=== PATIENT | male | born 1960 | race African-American/Black ===

== ENCOUNTER 2018-01-22 10:02 | Day surgery (SDC) | payer MEDICARE ==
[~2018-01-22] VITALS: Ht 167.6 cm; Wt 108.4 kg
[~2018-01-22 10:02] MED LIST: ALLP300T PO; BUDE6HFA IH; CARV12.53 PO; CLON-378 PO; DGX.125T GT; DIPH25TA82 PO; FAMO20TA13 PO; FURO40TA4 PO; GABA300T23 PO; HYDR-3004 PO; HYDR1TAB86 PO; IPRA3AMP11 INH; ISM30TCR PO; LISI10TA PO; LORA10TA7 PO; METH500T35 PO; NIAC1000 PO; OMEG1CAP PO; RIVA20TA2 PO; SMV20T PO; TMSL.4C PO; ZLP10T PO
--- OUTSIDE RECORDS SUMMARY | 2018-01-22 10:13 | XMS REPORT ---
Author Author Melecio Wilkinson [facility] Address [address] [place], [place] [id number] Care Team Providers Care Ct Tech Name Role Phone Melecio Wilkinson PCP Melecio Wilkinson PreferredProvider Allergies and Adverse Reactions Name Reaction Notes NO KNOWN DRUG ALLERGIES Plan of Treatment Planned Activity Comments Planned Date Planned Time Plan/Goal EKG (12-lead electrocardiogram) 12/09/2012 12:00 AM Medications Active Name Start Date Estimated Completion Date SIG Comments hydralazine 50 mg oral tablet take 1 tablet (50 mg) by oral route 3 times per day with food Dr. Yesenia Yang Oral one tablet by oral route once daily Symbicort 160-4.5 mcg/actuation inhalation HFA aerosol inhaler 09/23/2013 INHALE 2 PUFFS BY MOUTH 2 TIMES PER DAY MORNING AND EVENING lisinopril 10 mg oral tablet 10/13/2013 TAKE 1 TABLET BY MOUTH EVERY DAY FOR BLOOD PRESSURE diphenhydramine HCl 50 mg oral capsule 11/12/2013 TAKE 1 CAPSULE BY MOUTH EVERY SIX HOURS NEEDED digoxin 125 mcg oral tablet 11/20/2013 TAKE 1 TABLET BY MOUTH EVERY DAY isosorbide mononitrate 30 mg oral tablet extended release 24 hr 11/20/2013 TAKE 1 TABLET BY MOUTH EVERY DAY *GEN IMDUR* simvastatin 20 mg oral tablet 12/17/2013 TAKE 1 TABLET BY MOUTH DAILY AT BEDTIME famotidine 20 mg oral tablet 12/18/2013 TAKE 1 TABLET BY MOUTH TWO TIMES A DAY allopurinol 300 mg oral tablet 02/11/2014 TAKE 1 TABLET BY MOUTH ONCE DAILY carvedilol 12.5 mg oral tablet 02/11/2014 TAKE 1 TABLET BY MOUTH TWO TIMES A DAY *GEN COREG* digoxin 125 mcg oral tablet 02/11/2014 TAKE 1 TABLET BY MOUTH EVERY DAY isosorbide mononitrate 30 mg oral tablet extended release 24 hr 02/11/2014 TAKE 1 TABLET BY MOUTH EVERY DAY *GEN IMDUR* isosorbide mononitrate 30 mg oral tablet extended release 24 hr 05/10/2014 TAKE 1 TABLET BY MOUTH EVERY DAY *GEN IMDUR* digoxin 125 mcg oral tablet 05/10/2014 TAKE 1 TABLET BY MOUTH EVERY DAY clonidine HCl 0.2 mg oral tablet 06/07/2014 TAKE ONE TABLET BY MOUTH THREE TIMES DAILY NEEDED allopurinol 300 mg oral tablet 08/02/2014 TAKE 1 TABLET BY MOUTH ONCE DAILY carvedilol 12.5 mg oral tablet 08/02/2014 TAKE 1 TABLET BY MOUTH TWO TIMES A DAY *GEN COREG* digoxin 125 mcg oral tablet 08/30/2014 TAKE 1 TABLET BY MOUTH EVERY DAY isosorbide mononitrate 30 mg oral tablet extended release 24 hr 08/30/2014 TAKE 1 TABLET BY MOUTH EVERY DAY *GEN IMDUR* diphenhydramine HCl 50 mg oral capsule 09/28/2014 TAKE 1 CAPSULE BY MOUTH EVERY SIX HOURS NEEDED Symbicort 160-4.5 mcg/actuation inhalation HFA aerosol inhaler 11/23/2014 INHALE 2 PUFFS BY MOUTH 2 TIMES PER DAY MORNING AND EVENING omega-3 acid ethyl esters 1 gram oral capsule 11/23/2014 TAKE 2 CAPSULES (2 GRAM) BY ORAL ROUTE 2 TIMES PER DAY FOR 30 DAYS digoxin 125 mcg oral tablet 02/21/2015 TAKE 1 TABLET BY MOUTH EVERY DAY cimetidine 200 mg oral tablet 03/02/2015 take 1 tablet (200 mg) by oral route once daily 30 minutes before meals cimetidine 200 mg oral tablet 03/29/2015 TAKE 1 TABLET BY MOUTH EVERY DAY 30 MINUTES BEFORE A MEAL cimetidine 200 mg oral tablet 04/28/2015 TAKE 1 TABLET BY MOUTH EVERY DAY 30 MINUTES BEFORE A MEAL midodrine 5 mg oral tablet 06/27/2015 take 1 tablet (5 mg) by oral route 2 times per day omeprazole 40 mg oral capsule,delayed release(DR/EC) 06/27/2015 take 1 capsule by oral route 2 times a day midodrine 5 mg oral tablet 07/20/2015 TAKE 1 TABLET BY MOUTH TWICE DAILY methocarbamol 750 mg oral tablet 08/17/2015 take 1 tablet by oral route every 6 hours as needed for 30 days digoxin 125 mcg oral tablet 08/17/2015 TAKE 1 TABLET BY MOUTH EVERY DAY lisinopril 20 mg oral tablet 08/17/2015 TAKE 1 TABLET BY MOUTH DAILY midodrine 5 mg oral tablet 01/06/2016 TAKE 1 TABLET BY MOUTH TWICE DAILY methocarbamol 750 mg oral tablet 01/06/2016 TAKE 1 TABLET BY ORAL ROUTE EVERY 6 HOURS NEEDED FOR 30 DAYS Symbicort 160-4.5 mcg/actuation inhalation HFA aerosol inhaler 01/30/2016 INHALE 2 PUFFS BY MOUTH 2 TIMES PER DAY MORNING AND EVENING omeprazole 40 mg oral capsule,delayed release(DR/EC) 02/06/2016 TAKE 1 CAPSULE BY MOUTH TWICE DAILY digoxin 125 mcg oral tablet 02/06/2016 TAKE 1 TABLET BY MOUTH EVERY DAY carvedilol 25 mg oral tablet 03/06/2016 take 1 tablet (25 mg) by oral route 2 times per day with food for 90 days sucralfate 1 gram oral tablet 05/02/2016 TAKE 1 TABLET BY MOUTH 30 MINUITES PRIOR TO MEALS AND AT BEDTIME fluticasone 50 mcg/actuation nasal spray,suspension 05/03/2016 inhale 1 spray (50 mcg) in each nostril by intranasal route 2 times per day clonidine HCl 0.2 mg oral tablet 07/12/2016 TAKE ONE TABLET BY MOUTH THREE TIMES DAILY NEEDED midodrine 5 mg oral tablet 08/01/2016 TAKE 1 TABLET BY MOUTH TWICE DAILY sucralfate 1 gram oral tablet 08/01/2016 TAKE 1 TABLET BY MOUTH 30 MINUITES PRIOR TO MEALS AND AT BEDTIME digoxin 125 mcg oral tablet 08/01/2016 TAKE 1 TABLET BY MOUTH EVERY DAY loratadine 10 mg oral tablet 08/28/2016 TAKE 1 TABLET BY MOUTH EVERY DAY - GEN CLARITIN- albuterol sulfate 2.5 mg /3 mL (0.083 %) inhalation solution for nebulization 09/25/2016 USE 1 VIAL IN NEBULIZER FOUR TIMES DAILY Singulair 10 mg oral tablet 10/26/2016 take 1 tablet (10 mg) by oral route once daily in the evening atorvastatin 40 mg oral tablet 01/24/2017 01/19/2018 take 1 tablet (40 mg) by oral route once daily for 90 days carvedilol 25 mg oral tablet 03/21/2017 TAKE ONE TABLET BY MOUTH TWICE DAILY WITH FOOD Lyrica 50 mg oral capsule 06/06/2017 take 1 capsule (50 mg) by oral route 2 times per day clonidine HCl 0.2 mg oral tablet 07/18/2017 02/13/2018 TAKE ONE TABLET BY MOUTH THREE TIMES DAILY NEEDED methocarbamol 750 mg oral tablet 07/18/2017 01/14/2018 TAKE 1 TABLET BY MOUTH EVERY SIX HOURS NEEDED sucralfate 1 gram oral tablet 07/18/2017 01/14/2018 TAKE 1 TABLET BY MOUTH 30 MINUITES PRIOR TO MEALS AND AT BEDTIME digoxin 125 mcg oral tablet 07/18/2017 01/14/2018 TAKE 1 TABLET BY MOUTH EVERY DAY ondansetron HCl 8 mg oral tablet 07/22/2017 take 1 tablet (8 mg) by oral route every 8 hours midodrine 5 mg oral tablet 08/16/2017 02/12/2018 TAKE 1 TABLET BY MOUTH TWICE DAILY tamsulosin 0.4 mg oral capsule,extended release 24hr 08/16/2017 08/11/2018 TAKE 1 CAPSULE BY MOUTH EVERY DAY amlodipine 5 mg oral tablet 08/16/2017 02/12/2018 TAKE 1 TABLET BY MOUTH DAILY prednisone 20 mg oral tablet 08/27/2017 take 2 tablets (40 mg) by oral route once daily for 5 days zolpidem 10 mg oral tablet 09/17/2017 11/16/2017 take 1 tablet (10 mg) by oral route once daily at bedtime for 30 days omeprazole 40 mg oral capsule,delayed release(DR/EC) 09/17/2017 03/16/2018 TAKE 1 CAPSULE BY MOUTH TWICE DAILY Levaquin 500 mg oral tablet 10/10/2017 take 1 tablet (500 mg) by oral route once daily for 7 days albuterol sulfate 2.5 mg /3 mL (0.083 %) inhalation solution for nebulization 10/17/2017 inhale 3 milliliters (2.5 mg) by nebulization route 4 times per day Dx: J44.9 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 Symbicort 160-4.5 mcg/actuation inhalation HFA aerosol inhaler 10/17/201705/15 INHALE 2 PUFFS BY MOUTH 2 TIMES PER DAY MORNING AND EVENING azithromycin 500 mg oral tablet 10/22/2017 take 1 tablet (500 mg) by oral route once daily for 5 days cefpodoxime 200 mg oral tablet 10/22/2017 take 1 tablet (200 mg) by oral route every 12 hours with food for 7 days guaifenesin 600 mg oral tablet extended release 12hr 10/22/2017 take 1 tablet (600 mg) by oral route every 12 hours oxycodone 20 mg oral tablet 10/24/2017 11/23/2017 take 1 tablet by oral route q6h prn for 30 days oxycodone 30 mg oral tablet,oral only,ext.rel.12 hr 10/24/2017 11/23/2017 take 1 tablet (30 mg) by oral route every 8 hours for 30 days Name Start Date Expiration Date SIG Comments hydroxyzine HCl 50 mg oral tablet 09/20/2009 01/18/2010 take 1 tablet (50 mg ) by oral route 3 times per day doxycycline hyclate 100 mg oral tablet 12/06/2009 12/13/2009 take 1 tablet ( 100 mg) by oral route every 12 hours for 7 days potassium chloride 10 mEq oral tablet extended release 05/15/2010 11/11/2010 take 1 tablet (10 meq) by oral route 2 times per day with food Bactrim DS 800-160 mg oral tablet 06/01/2010 06/08/2010 take 1 tablet by oral route every 12 hours for 7 days Levaquin 500 mg oral tablet 07/25/2010 08/01/2010 take 1 tablet (500 mg) by oral route once daily for 7 days Symbicort 160-4.5 mcg/actuation inhalation HFA aerosol inhaler 06/11/201112/07 inhale 2 puffs by inhalation route 2 times per day morning and evening Fioricet 50-325-40 mg oral tablet 08/22/2011 take 1 tablet by oral route every 4 hours as needed not to exceed 6 tablets per 24hrs diphenhydramine HCl 50 mg oral tablet 11/08/2011 02/06/2012 Take 1 tablet (50 mg) by oral route every six hours as needed for 30 days Levaquin 750 mg oral tablet 01/01/2012 01/08/2012 take 1 tablet (750 mg) by oral route once daily for 7 days Voltaren 1 % topical gel 08/04/2012 10/03/2012 apply 4 gram to affected area( s) by topical route 3 times per day Augmentin 500-125 mg oral tablet 08/19/2012 08/26/2012 take 1 tablet by oral route every 12 hours for 7 days prednisone 10 mg oral tablet 09/01/2012 09/06/2012 Take 1 by mouth once a day Levaquin 500 mg oral tablet 10/09/2012 10/16/2012 take 1 tablet (500 mg) by oral route once daily for 7 days amoxicillin-pot clavulanate 500-125 mg oral tablet 11/05/2012 11/12/2012 TAKE 1 TABLET BY ORAL ROUTE EVERY 12 HOURS FOR 7 DAYS loratadine 10 mg oral tablet 11/06/2012 12/06/2012 TAKE 1 TABLET BY MOUTH EVERY DAY -GEN CLARITIN- Lovaza 1 gram oral capsule 11/17/2012 12/17/2012 TAKE 2 CAPSULES (2 GRAM) BY ORAL ROUTE 2 TIMES PER DAY FOR 30 DAYS Vibramycin 100 mg oral capsule 12/09/2012 12/19/2012 take 1 capsule (100 mg) by oral route every 12 hours for 10 days prednisone 20 mg oral tablet 12/09/2012 12/18/2012 take 3 tabs PO x 3 days, then 2 tabs PO x 3 days, and then 1 tab PO x 3 days simvastatin 20 mg oral tablet 06/25/2013 07/25/2013 TAKE 1 TABLET BY MOUTH DAILY AT BEDTIME famotidine 20 mg oral tablet 06/25/2013 07/25/2013 TAKE 1 TABLET BY MOUTH TWO TIMES A DAY Bactrim DS 800-160 mg oral tablet 07/21/2013 07/28/2013 take 1 tablet by oral route 2 times per day for 7 days guaifenesin 600 mg oral tablet extended release 07/21/2013 07/31/2013 take 1 tablet (600 mg) by oral route every 12 hours for 10 days diphenhydramine HCl 50 mg oral capsule 08/14/2013 11/12/2013 TAKE 1 CAPSULE BY MOUTH EVERY SIX HOURS NEEDED digoxin 125 mcg oral tablet 08/25/2013 11/23/2013 TAKE 1 TABLET BY MOUTH EVERY DAY Augmentin 500-125 mg oral tablet 10/05/2013 10/12/2013 take 1 tablet by oral route every 12 hours for 7 days dicyclomine 10 mg oral capsule 10/29/2013 11/03/2013 take 1 capsule (10 mg) by oral route 3 times per day for 5 days Cipro 500 mg oral tablet 10/29/2013 11/03/2013 take 1 tablet (500 mg) by oral route every 12 hours for 5 days Lovaza 1 gram oral capsule 11/12/2013 TAKE 2 CAPSULES (2 GRAM) BY ORAL ROUTE 2 TIMES PER DAY FOR 30 DAYS Levaquin 750 mg oral tablet 12/08/2013 12/15/2013 take 1 tablet (750 mg) by oral route once daily for 7 days Levaquin 500 mg oral tablet 01/05/2014 01/12/2014 take 1 tablet (500 mg) by oral route once daily for 7 days montelukast 10 mg oral tablet 03/02/2014 03/09/2014 take 1 tablet (10 mg) by oral route once daily in the evening for 7 days metformin 500 mg oral tablet 05/14/2014 11/10/2014 take 1 tablet (500 mg) by oral route 2 times per day with morning and evening meals for 30 days bupropion HCl 150 mg oral tablet extended release 24 hr 05/20/2014 take 1 tablet (150 mg) by oral route once daily simvastatin 20 mg oral tablet 06/07/2014 TAKE 1 TABLET BY MOUTH DAILY AT BEDTIME baclofen 10 mg oral tablet 07/19/2014 11/16/2014 take 0.5 tablet by oral route 3 times a day for 30 days Voltaren 1 % topical gel 09/14/2014 apply 2 gram to the affected area(s) by topical route 4 times per day amantadine HCl 100 mg oral tablet 10/05/2014 10/10/2014 take 1 tablet (100 mg ) by oral route 2 times per day for 5 days amantadine HCl 100 mg oral tablet 11/11/2014 11/16/2014 take 1 tablet (100 mg ) by oral route 2 times per day for 5 days amoxicillin 500 mg oral capsule 11/11/2014 11/18/2014 take 1 capsule (500 mg) by oral route every 12 hours for 7 days omeprazole 40 mg oral capsule,delayed release(DR/EC) 01/13/2015 07/12/2015 take 1 capsule by oral route 2 times a day for 30 days Cipro 500 mg oral tablet 01/13/2015 01/20/2015 take 1 tablet (500 mg) by oral route every 12 hours for 7 days methocarbamol 500 mg oral tablet 01/24/2015 06/23/2015 take 1 tablet (500 mg) by oral route 4 times a day for 30 days gabapentin 300 mg oral capsule 02/17/2015 08/16/2015 take 2 capsules (600 mg ) by oral route 3 times per day for 30 days furosemide 20 mg oral tablet 02/24/2015 TAKE 2 TABELTS BY MOUTH TWICE DAILY FOR 3 DAYS THEN TAKE 1 TABLET DAILY valacyclovir 1 gram oral tablet 02/28/2015 03/05/2015 take 1 tablet (1,000 mg) by oral route 2 times per day for 5 days Tradjenta 5 mg oral tablet 03/28/2015 04/25/2015 take 1 tablet (5 mg) by oral route once daily for 28 days Bactrim DS 800-160 mg oral tablet 03/28/2015 04/04/2015 take 1 tablet by oral route every 12 hours for 7 days methocarbamol 750 mg oral tablet 03/29/2015 08/26/2015 take 1 tablet by oral route every 6 hours as needed for 30 days Bactrim DS 800-160 mg oral tablet 04/08/2015 04/13/2015 take 1 tablet by oral route every 12 hours for 5 days Cipro 250 mg oral tablet 04/22/2015 04/29/2015 take 1 tablet (250 mg) by oral route every 12 hours for 7 days Coreg 25 mg oral tablet take 1 tablet (25 mg) by oral route 2 times per day with food sulfamethoxazole-trimethoprim 800-160 mg oral tablet 06/02/2015 06/09/2015 take 1 tablet by oral route every 12 hours for 7 days carvedilol 25 mg oral tablet 06/14/2015 06/08/2016 take 1 tablet (25 mg) by oral route 2 times per day with food for 90 days Levaquin 500 mg oral tablet 06/27/2015 take 1 tablet (500 mg) by oral route once daily sulfamethoxazole-trimethoprim 800-160 mg oral tablet 07/29/2015 08/05/2015 take 1 tablet by oral route every 12 hours for 7 days doxazosin 2 mg oral tablet 04/11/2016 10/08/2016 take 1 tablet (2 mg) by oral route once daily for 30 days sulfamethoxazole-trimethoprim 800-160 mg oral tablet 06/07/2016 06/14/2016 take 1 tablet by oral route every 12 hours for 7 days Albuterol Sulfate 2.5 mg /3 mL (0.083 %) Inhalation Solution for Nebulization 08/28/2016 08/28/2017 inhale 3 milliliters (2.5 mg) by nebulization route 4 times per day furosemide 40 mg oral tablet 01/24/2017 02/23/2017 take 1 tablet (40 mg) by oral route once daily for 30 days Pyridium 200 mg oral tablet 04/19/2017 04/21/2017 take 1 tablet (200 mg) by oral route 3 times per day after meals for 2 days Discontinued Name Start Date Discontinued Date SIG Comments Neurontin 300 mg oral capsule 11/03/2009 1 tab q hs already on list NitroQuick 0.4 mg sublingual tablet, sublingual 11/03/2009 place 1 tablet ( 0.4 mg) by sublingual route at the 1st sign of an attack; may repeat every 5 min until relief; if pain persists after of 3 tablets in 15 min, prompt medical attention is recommended no longer has this med zolpidem 10 mg oral tablet 02/08/2010 take 1 tablet (10 mg) by oral route once daily at bedtime Tricor 145 mg oral tablet 11/03/2009 take 1 tablet (145 mg) by oral route once daily no longer taking hydralazine 100 mg oral tablet 06/14/2010 take 1 tablet (100 mg) by oral route 3 times per day with food isosorbide mononitrate 30 mg oral tablet extended release 24 hr 09/20/200907/2010 take 1 tablet (30 mg) by oral route once daily in the morning for 30 days dose change Pepcid 20 mg oral tablet 10/20/2009 11/03/2009 take 1 tablet (20 mg) by oral route 2 times per day for 30 days already on list lisinopril 40 mg oral tablet 06/14/2010 take 1 tablet (40 mg) by oral route once daily isosorbide mononitrate 60 mg oral tablet extended release 24 hr 06/14/2010 take 1 tablet by oral route daily Proventil HFA 90 mcg/actuation inhalation HFA aerosol inhaler 11/03/20092013 inhale 1 puff by inhalation route every 6 hours/QID prednisone 10 mg oral tablet 12/06/2009 02/08/2010 Take 1 MG/KG (10 mg) by oral route daily warfarin 6 mg oral tablet 12/14/2009 05/06/2013 take 1 tablet (6 mg) by oral route once daily for 30 days changed to Jimmielreto by Dr. Yesenia Cuevas 5 % topical adhesive patch,medicated 02/08/2010 08/04/2012 apply 2 patches by transdermal route once daily (May wear up to 12hours.) for 30 days Patch doesn't stay on Singulair 10 mg oral tablet 03/15/2010 05/14/2014 take 1 tablet (10 mg) by oral route once daily in the evening carvedilol 25 mg oral tablet 04/17/2010 06/14/2010 1 1/2 tabs BID niacin 500 mg oral tablet 10/10/2016 take 1 tablet (500 mg) by oral route once daily Augmentin 875-125 mg oral tablet 11/07/2010 03/05/2011 take 1 tablet by oral route every 12 hours docusate sodium 100 mg oral capsule 01/08/2011 05/14/2014 take 1 capsule by oral route daily hyoscyamine sulfate 0.125 mg oral tablet 07/26/2011 12/09/2012 take 1 tablet by oral route 2 times a day hydroxyzine HCl 50 mg oral tablet 09/10/2011 11/08/2011 TAKE 1 TABLET BY MOUTH THREE TIMES A DAY NEEDED Formulary Compliance promethazine-codeine 6.25-10 mg/5 mL oral syrup 10/01/2011 05/14/2012 take 5 milliliters by oral route every 4-6 hours as needed, not to exceed 30 mL in 24 hours promethazine 25 mg oral tablet 10/11/2011 10/31/2011 TAKE 1 TABLET BY MOUTH EVERY 6 HOURS NEEDED NAUSEA prochlorperazine maleate 5 mg oral tablet 10/31/2011 05/14/2012 take 1 tablet by oral route every 6 to 8 hours as needed prednisone 10 mg oral tablet 01/01/2012 05/14/2012 take 2 tablets (20 mg) by oral route once daily for 3 days then 1 tablet (10 mg) once daily for 2 days Ambien 10 mg oral tablet 02/25/2012 05/19/2012 take 1 tablet (10 mg) by oral route once daily at bedtime for 30 days generic on list guaifenesin 600 mg oral tablet extended release 05/06/2012 07/21/2013 take 1 tablet (600 mg) by oral route every 12 hours as needed amoxicillin-pot clavulanate 500-125 mg oral tablet 05/06/2012 05/14/2012 take 1 tablet by oral route every 12 hours Miralax 17 gram oral powder in packet 07/16/2012 05/14/2014 take 1 packet ( 17 gram) mixed with 8 oz. water, juice, soda, coffee or tea by oral route once daily lisinopril 10 mg oral tablet 04/15/2013 10/10/2016 TAKE 1 TABLET BY MOUTH EVERY DAY FOR BLOOD PRESSURE taking 20mg daily baclofen 10 mg oral tablet 02/26/2013 10/28/2013 take 1 tablet (10 mg) by oral route 3 times a day furosemide 40 mg oral tablet 08/24/2013 10/10/2016 TAKE 1 TABLET BY MOUTH EVERY DAY -FOR FLUID- *GEN LASIX* not taking allopurinol 300 mg oral tablet 08/24/2013 10/10/2016 TAKE 1 TABLET BY MOUTH ONCE DAILY dose change carvedilol 12.5 mg oral tablet 08/24/2013 08/08/2016 TAKE 1 TABLET BY MOUTH TWO TIMES A DAY *GEN COREG* gen. on list isosorbide mononitrate 30 mg oral tablet extended release 24 hr 08/24/2013 TAKE 1 TABLET BY MOUTH EVERY DAY *GEN IMDUR* not taking hydrocodone-acetaminophen 10-500 mg oral tablet 08/25/2013 11/23/2013 take 1 tablet (10-500 mg) by oral route every 4 hours for 30 days Levaquin 750 mg oral tablet 09/22/2013 09/29/2013 take 1 tablet (750 mg) by oral route once daily prednisone 20 mg oral tablet 09/22/2013 10/29/2013 take 2 tabs(40mg) daily times 2 days, then 20mg daily for 4 days Sudafed 30 mg oral tablet 05/14/2014 promethazine 25 mg oral tablet 10/29/2013 05/14/2014 take 1 tablet (25 mg) by oral route every 6 hours as needed clonidine HCl 0.2 mg oral tablet 11/12/2013 02/17/2015 TAKE ONE TABLET BY MOUTH THREE TIMES DAILY NEEDED clonidine HCl 0.2 mg oral tablet 11/12/2013 02/17/2015 TAKE ONE TABLET BY MOUTH THREE TIMES DAILY NEEDED already on list furosemide 40 mg oral tablet 11/20/2013 05/14/2014 TAKE 1 TABLET BY MOUTH EVERY DAY -FOR FLUID- *GEN LASIX* methocarbamol 500 mg oral tablet 02/04/2014 03/24/2014 take 1 tablet (500 mg) by oral route 4 times a day for 30 days Augmentin 500-125 mg oral tablet 03/02/2014 05/14/2014 take 1 tablet by oral route every 12 hours Synvisc-One 48 mg/6 mL intra-articular syringe 04/28/2014 05/14/2014 inject 6 milliliters by intra-articular route into the right knee Levaquin 500 mg oral tablet 05/20/2014 07/14/2014 take 1 tablet (500 mg) by oral route once daily famotidine 20 mg oral tablet 06/07/2014 09/07/2014 TAKE 1 TABLET BY MOUTH TWO TIMES A DAY cyclobenzaprine 10 mg oral tablet 07/14/2014 07/19/2014 take 1 tablet (10 mg ) by oral route 3 times per day as needed headaches gabapentin 100 mg oral capsule 07/19/2014 11/11/2014 take 1 capsule by oral route 3 times a day for 30 days with the 300 mg capsule dose change lisinopril 10 mg oral tablet 09/28/2014 04/26/2015 TAKE 1 TABLET BY MOUTH EVERY DAY FOR BLOOD PRESSURE ON HOLD - DR ARAIZA penicillin V potassium 500 mg oral tablet 11/11/2014 11/11/2014 take 1 tablet (500 mg) by oral route 2 times per day for 7 days Not available at the pharmacy metformin 500 mg oral tablet 11/15/2014 03/11/2015 TAKE 1 TABLET BY MOUTH TWICE DAILY WITH MORNING AND EVENING MEALS metformin 500 mg oral tablet 11/15/2014 03/11/2015 TAKE 1 TABLET BY MOUTH TWICE DAILY WITH MORNING AND EVENING MEALS elevated creatinine hydralazine 50 mg oral tablet 12/23/2014 04/26/2015 TAKE 1 TABLET BY MOUTH THREE TIMES A DAY hydralazine 50 mg oral tablet 12/23/2014 04/26/2015 TAKE 1 TABLET BY MOUTH THREE TIMES A DAY RX ON HOLD - DR ARAIZA hydrocodone-acetaminophen 10-325 mg oral tablet 01/04/2015 01/12/2015 take 2 tablets by oral route 2 times a day as needed for 30 days diphenhydramine HCl 50 mg oral capsule 01/21/2015 02/28/2015 TAKE 1 CAPSULE BY MOUTH EVERY SIX HOURS NEEDED carvedilol 12.5 mg oral tablet 02/21/2015 04/26/2015 TAKE 1 TABLET BY MOUTH TWO TIMES A DAY *GEN COREG* carvedilol 12.5 mg oral tablet 02/21/2015 04/26/2015 TAKE 1 TABLET BY MOUTH TWO TIMES A DAY *GEN COREG* DR ARAIZA INCREASED TO 25 mg po bid allopurinol 300 mg oral tablet 02/21/2015 10/10/2016 TAKE 1 TABLET BY MOUTH ONCE DAILY allopurinol 300 mg oral tablet 02/21/2015 10/10/2016 TAKE 1 TABLET BY MOUTH ONCE DAILY dose change isosorbide mononitrate 30 mg oral tablet extended release 24 hr 02/21/20152014 TAKE 1 TABLET BY MOUTH EVERY DAY *GEN IMDUR* isosorbide mononitrate 30 mg oral tablet extended release 24 hr 02/21/20152014 TAKE 1 TABLET BY MOUTH EVERY DAY *GEN IMDUR* ON TAMI ARAIZA triamcinolone acetonide 0.1 % topical cream 02/28/2015 03/28/2015 apply a thin layer to the affected area(s) by topical route 3 times per day hydroxyzine HCl 50 mg oral tablet 02/28/2015 03/28/2015 take 1 tablet (50 mg) by oral route 4 times per day as needed lisinopril 20 mg oral tablet 03/23/2015 04/26/2015 TAKE 1 TABLET BY MOUTH DAILY lisinopril 20 mg oral tablet 03/23/2015 04/26/2015 TAKE 1 TABLET BY MOUTH DAILY ON HOLD - DR ARAIZA betamethasone dipropionate 0.05 % topical lotion 03/28/2015 10/10/2016 apply a few drops to the affected area(s) by topical route 2 times per day and massage lightly until it disappears gabapentin 300 mg oral capsule 04/26/2015 05/16/2015 take 1 capsule by oral route 2 times a day for 30 days changed to Lyrica. Increased pain follow dose adjustments of gabapentin for renal function allopurinol 100 mg oral tablet 01/19/2016 take 1.5 tablets by oral route daily ondansetron 8 mg oral tablet,disintegrating 10/10/2016 take 1 tablet (8 mg ) and place on top of the tongue where it will dissolve, then swallow by oral route every 8 hours "i don't have this" sodium bicarbonate 325 mg oral tablet 10/10/2016 take 0.5 tablet by oral route 2 times a day Vitamin D3 1,000 unit oral capsule 10/10/2016 take 1 capsule by oral route Carafate 1 gram oral tablet 10/10/2016 take 1 tablet (1 gram) by oral route 4 times per day on an empty stomach 1 hour before meals and at bedtime generic on list guaifenesin 600 mg oral tablet extended release hr 07/28/2015 08/23/2015 Take 1 tablet every 12 hours for cough amoxicillin-pot clavulanate 500-125 mg oral tablet 07/28/2015 07/29/2015 take 1 tablet by oral route every 12 hours for 7 days prednisone 20 mg oral tablet 08/08/2015 08/23/2015 take 2 tablets (40 mg) by oral route daily for 4 days 1 tablet (20 mg) daily for 4 days then 0.5 tablet ( 10 mg) daily for 4 days loratadine 10 mg oral tablet 09/14/2015 04/11/2016 TAKE 1 TABLET BY MOUTH EVERY DAY -GEN CLARITIN- tamsulosin 0.4 mg oral capsule,extended release 24hr 09/14/2015 04/11/2016 TAKE 1 CAPSULE BY MOUTH EVERY DAY cimetidine 200 mg oral tablet 10/13/2015 04/11/2016 TAKE 1 TABLET BY MOUTH EVERY DAY 30 MINUTES BEFORE A MEAL cimetidine 200 mg oral tablet 10/13/2015 04/11/2016 TAKE 1 TABLET BY MOUTH EVERY DAY 30 MINUTES BEFORE A MEAL Taking Omeprazole omega-3 acid ethyl esters 1 gram oral capsule 11/10/2015 02/17/2016 TAKE 2 CAPSULES (2 GRAM) BY ORAL ROUTE 2 TIMES PER DAY FOR 30 DAYS clonidine HCl 0.2 mg oral tablet 11/21/2015 04/12/2016 TAKE ONE TABLET BY MOUTH THREE TIMES DAILY NEEDED Switching to Doxazosin Lyrica 50 mg oral capsule 11/21/2015 02/17/2016 take 1 capsule by oral route 2 times a day for 30 days lisinopril 20 mg oral tablet 12/08/2015 02/03/2017 TAKE 1 TABLET BY MOUTH DAILY lisinopril 20 mg oral tablet 12/08/2015 02/03/2017 TAKE 1 TABLET BY MOUTH DAILY Acute renal injury gentamicin 0.3 % ophthalmic drops 12/13/2015 01/19/2016 instill 2 drops into affected eye(s) by ophthalmic route 4 times a day oxycodone 30 mg oral tablet,oral only,ext.rel.12 hr 01/19/2016 01/20/2016 Take 1 tablet every 12 hours Embeda 50-2 mg oral capsule,oral only,ext.rel akua 01/20/2016 01/20/2016 take 1 capsule by oral route every 12 hours for 30 days $500 co-pay MS Contin 60 mg oral tablet extended release 01/20/2016 02/16/2016 take 1 tablet by oral route every 12 hours for 30 days Lacey stoned Amitiza 24 mcg oral capsule 05/03/2016 10/10/2016 take 1 capsule (24 mcg) by oral route 2 times per day with food and water furosemide 20 mg oral tablet 07/10/2016 10/10/2016 take 1 tablet (20 mg) by oral route once daily for 3 days furosemide 20 mg oral tablet 07/10/2016 10/10/2016 take 1 tablet (20 mg) by oral route once daily for 3 days not taking fluticasone 50 mcg/actuation nasal spray,suspension 08/01/2016 10/10/2016 inhale 1 spray (50 mcg) in each nostril by intranasal route 2 times per day guaifenesin 600 mg oral tablet extended release 12hr 09/26/2016 10/10/2016 take 1 tablet (600 mg) by oral route every 12 hours Augmentin 500-125 mg oral tablet 09/26/2016 10/10/2016 take 1 tablet by oral route every 12 hours prednisone 20 mg oral tablet 09/26/2016 10/10/2016 take 2 tablets (40 mg) by mouth once daily for 3 days 1 tablet (20 mg) once daily for 3 days then 0.5 tablet (10 mg) daily for 2 days Lyrica 75 mg oral capsule 12/21/2016 02/03/2017 take 1 capsule (75 mg) by oral route 2 times per day for 30 days Acute renal failure prednisone 10 mg oral tablet 12/21/2016 01/08/2017 take 1 tablet (10 mg) by oral route once daily metolazone 10 mg oral tablet 01/14/2017 01/15/2017 take 1 tablet (10 mg) by oral route once daily bumetanide 2 mg oral tablet 08/27/2017 take 1 tablet (2 mg) by oral route every other day for 10 days allopurinol 100 mg oral tablet 01/24/2017 02/03/2017 take 1 and 1/2 tablet ( 150 mg) by oral route once daily allopurinol 100 mg oral tablet 01/24/2017 02/03/2017 take 1 and 1/2 tablet ( 150 mg) by oral route once daily Acute renal failure Klor-Con 10 10 mEq oral tablet extended release 01/24/2017 08/27/2017 take 1 tablet (10 meq) by oral route once daily with food for 30 days Klor-Con 10 10 mEq oral tablet extended release 01/24/2017 08/27/2017 take 1 tablet (10 meq) by oral route once daily with food for 30 days pt reports not taking magnesium oxide 400 mg oral tablet 08/27/2017 take 1 tablet by oral route 3 times a day pt reports not taking Spiriva Respimat 2.5 mcg/actuation inhalation mist 04/03/2017 08/27/2017 inhale 2 puffs (5 mcg) by inhalation route once daily at the same time each day Levaquin 500 mg oral tablet 05/21/2017 06/06/2017 take 1 tablet (500 mg) by oral route once daily for 10 days guaifenesin 600 mg oral tablet extended release 12hr 05/21/2017 06/06/2017 take 1 tablet (600 mg) by oral route every 12 hours as needed Levaquin 500 mg oral tablet 08/06/2017 08/27/2017 take 1 tablet (500 mg) by oral route once daily for 5 days Problem List Description Status Onset SI joint pain Active 08/23/2009 Chronic Obstructive Pulmonary Disease Active Congestive Heart Failure Active Hypertension Active Hypercholesterolemia Active Lumbago Active Gout Active Diabetes Mellitus, Type II Active Benign essential hypertension Active 05/06/2014 myofascial pain Active 11/11/2014 Cervical spinal stenosis Active 11/11/2014 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 12/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 Lung cancer Active 12/02/14 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, right Active 03/17/2017 Vital Signs Date Time BP-Sys(mm[Hg] BP-Jaylin(mm[Hg]) HR(bpm) RR(rpm) Temp WT HT HC BMI BSA BMI Percentile O2 Sat(%) 10/22/2017 9:26:00 AM 142 mmHg 84 mmHg 85 bpm 24 rpm 97.7 F 239.125 lbs 67 in 37.45 kg/m2 2.26 m2 93 % 08/27/2017 3:21:00 PM 156 mmHg 72 bpm 16 rpm 98 F 248 lbs 67 in 38.8419 kg/m 2.306 m 94 % 07/22/2017 3:11:00 PM 136 mmHg 80 mmHg 73 bpm 22 rpm 98 F 249 lbs 67 in 39.00 kg/m2 2.31 m2 97 % 06/06/2017 10:05:00 AM 144 mmHg 86 mmHg 67 bpm 20 rpm 97.8 F 246 lbs 67 in 38.5287 kg/m 2.2967 m 99 % 04/03/2017 8:14:00 AM 148 mmHg 78 mmHg 86 bpm 22 rpm 97.3 F 242 lbs 67 in 37.90 kg/m2 2.28 m2 99 % 03/28/2017 1:32:00 PM 132 mmHg 70 mmHg 83 bpm 20 rpm 98.1 F 241 lbs 67 in 37.7455 kg/m 2.2732 m 98 % 03/11/2017 9:12:00 AM 124 mmHg 76 mmHg 84 bpm 18 rpm 97 F 237 lbs 67 in 37.12 kg/m2 2.25 m2 95 % 02/22/2017 9:48:00 AM 137 mmHg 75 mmHg 88 bpm 18 rpm 97.6 F 242 lbs 67 in 37.9022 kg/m 2.278 m 92 % 02/05/2017 1:41:00 PM 130 mmHg 78 mmHg 78 bpm 18 rpm 97.5 F 247 lbs 67 in 38.69 kg/m2 2.30 m2 97 % 01/09/2017 8:32:00 AM 146 mmHg 88 mmHg 98 bpm 20 rpm 97.9 F 262 lbs 67 in 41.0346 kg/m 2.3702 m 98 % 12/21/2016 8:08:00 AM 128 mmHg 72 mmHg 76 bpm 20 rpm 97.2 F 245 lbs 67 in 38.37 kg/m2 2.29 m2 100 % 11/20/2016 10:28:00 AM 142 mmHg 76 mmHg 83 bpm 20 rpm 98.3 F 245 lbs 67 in 38.372 kg/m 2.292 m 99 % 11/05/2016 10:23:00 AM 118 mmHg 66 mmHg 79 bpm 18 rpm 97.5 F 244.25 lbs 67 in 38.25 kg/m2 2.29 m2 95 % 10/23/2016 2:26:00 PM 136 mmHg 80 mmHg 86 bpm 20 rpm 98 F 242 lbs 67 in 37.9022 kg/m 2.278 m 98 % 10/10/2016 10:04:00 AM 128 mmHg 70 mmHg 68 bpm 20 rpm 98.2 F 246 lbs 67 in 38.53 kg/m2 2.30 m2 99 % 09/26/2016 8:45:00 AM 120 mmHg 66 mmHg 75 bpm 20 rpm 98 F 241 lbs 67 in 37.7455 kg/m 2.2732 m 98 % 08/28/2016 8:10:00 AM 139 mmHg 78 mmHg 84 bpm 20 rpm 97.6 F 251 lbs 74 in 32.23 kg/m2 2.44 m2 99 % 08/08/2016 10:15:00 AM 136 mmHg 74 mmHg 81 bpm 22 rpm 98.1 F 252 lbs 67 in 39.4684 kg/m 2.3245 m 96 % 07/09/2016 9:53:00 AM 144 mmHg 80 mmHg 90 bpm 20 rpm 98.1 F 261 lbs 67 in 40.88 kg/m2 2.37 m2 95 % 06/07/2016 9:27:00 AM 144 mmHg 72 mmHg 78 bpm 20 rpm 97.9 F 248 lbs 67 in 38.8419 kg/m 2.306 m 97 % 05/03/2016 2:37:00 PM 134 mmHg 78 mmHg 80 bpm 16 rpm 98.4 F 250 lbs 67 in 39.16 kg/m2 2.32 m2 98 % 04/11/2016 8:13:00 AM 166 mmHg 80 mmHg 63 bpm 22 rpm 98.1 F 256 lbs 67 in 40.0949 kg/m 2.3429 m 98 % 02/17/2016 9:56:00 AM 140 mmHg 92 mmHg 67 bpm 20 rpm 97.3 F 258 lbs 67 in 40.41 kg/m2 2.35 m2 98 % 01/19/2016 9:41:00 AM 162 mmHg 70 mmHg 70 bpm 16 rpm 96.8 F 254 lbs 67 in 39.7816 kg/m 2.3337 m 99 % 12/20/2015 1:42:00 PM 160 mmHg 84 mmHg 82 bpm 20 rpm 98.4 F 256 lbs 67 in 40.09 kg/m2 2.34 m2 97 % 11/21/2015 10:33:00 AM 152 mmHg 98 mmHg 86 bpm 22 rpm 97.3 F 259.5 lbs 67 in 40.643 kg/m 2.3589 m 98 % 10/17/2015 2:38:00 PM 188 mmHg 102 mmHg 82 bpm 20 rpm 98.3 F 266 lbs 67 in 41.66 kg/m2 2.39 m2 93 % 09/26/2015 10:30:00 AM 136 mmHg 78 mmHg 80 bpm 18 rpm 98 F 265 lbs 67 in 41.5044 kg/m 2.3837 m 97 % 09/07/2015 8:30:00 AM 152 mmHg 96 mmHg 66 bpm 18 rpm 96.9 F 257.375 lbs 66 in 41.54 kg/m2 2.33 m2 08/23/2015 9:51:00 AM 136 mmHg 76 mmHg 82 bpm 20 rpm 98.2 F 259 lbs 67 in 40.5647 kg/m 2.3566 m 98 % 08/08/2015 9:13:00 AM 140 mmHg 76 mmHg 78 bpm 20 rpm 98.1 F 259 lbs 67 in 40.56 kg/m2 2.36 m2 95 % 08/05/2015 8:58:00 AM 140 mmHg 82 mmHg 66 bpm 18 rpm 96.9 F 260 lbs 67 in 40.7213 kg/m 2.3611 m 07/11/2015 1:15:00 PM 144 mmHg 84 mmHg 71 bpm 20 rpm 96.6 F 263 lbs 67 in 41.19 kg/m2 2.37 m2 07/06/2015 2:39:00 PM 136 mmHg 84 mmHg 66 bpm 18 rpm 94.8 F 263 lbs 67 in 41.1912 kg/m 2.3747 m 06/27/2015 1:34:00 PM 98 mmHg 58 mmHg 80 bpm 22 rpm 98.3 F 263 lbs 67 in 41.19 kg/m2 2.37 m2 96 % 06/20/2015 2:12:00 PM 130 mmHg 76 mmHg 76 bpm 20 rpm 97.2 F 261.312 lbs 67 in 40.9269 kg/m 2.3671 m 97 % 06/15/2015 3:55:00 PM 130 mmHg 86 mmHg 72 bpm 18 rpm 97 F 268 lbs 67 in 41.97 kg/m2 2.40 m2 06/02/2015 10:51:00 AM 170 mmHg 100 mmHg 83 bpm 20 rpm 97.7 F 269.5 lbs 67 in 42.2092 kg/m 2.4039 m 97 % 05/16/2015 1:10:00 PM 162 mmHg 84 mmHg 70 bpm 18 rpm 97 F 272 lbs 67 in 42.60 kg/m2 2.42 m2 05/16/2015 9:29:00 AM 180 mmHg 88 mmHg 80 bpm 22 rpm 97.5 F 272 lbs 67 in 42.6008 kg/m 2.415 m 96 % 05/09/2015 9:39:00 AM 130 mmHg 72 mmHg 72 bpm 18 rpm 97.7 F 271.125 lbs 67 in 42.46 kg/m2 2.41 m2 04/26/2015 10:57:00 AM 148 mmHg 100 mmHg 82 bpm 18 rpm 97.8 F 275 lbs 67 in 43.0706 kg/m 2.4283 m 04/08/2015 8:01:00 AM 114 mmHg 88 mmHg 90 bpm 20 rpm 98.5 F 273 lbs 67 in 42.76 kg/m2 2.42 m2 98 % 03/29/2015 10:16:00 AM 142 mmHg 90 mmHg 66 bpm 20 rpm 96.7 F 273 lbs 67 in 42.7574 kg/m 2.4195 m 03/28/2015 9:31:00 AM 130 mmHg 72 mmHg 82 bpm 20 rpm 98.2 F 273 lbs 67 in 42.76 kg/m2 2.42 m2 99 % 03/15/2015 10:00:00 AM 100 mmHg 58 mmHg 80 bpm 18 rpm 97.4 F 273 lbs 67 in 42.7574 kg/m 2.4195 m 02/28/2015 4:15:00 PM 110 mmHg 76 mmHg 81 bpm 16 rpm 97 F 281.5 lbs 67 in 44.09 kg/m2 2.46 m2 96 % 02/17/2015 1:39:00 PM 142 mmHg 78 mmHg 84 bpm 18 rpm 98.3 F 284 lbs 67 in 44.4802 kg/m 2.4677 m 97 % 02/17/2015 1:03:00 PM 122 mmHg 74 mmHg 64 bpm 18 rpm 96.8 F 284 lbs 67 in 44.48 kg/m2 2.47 m2 01/19/2015 3:51:00 PM 128 mmHg 84 mmHg 76 bpm 20 rpm 96.4 F 286 lbs 70 in 41.0363 kg/m 2.5312 m 01/13/2015 1:38:00 PM 142 mmHg 82 mmHg 80 bpm 22 rpm 97.7 F 288 lbs 67 in 45.11 kg/m2 2.49 m2 01/12/2015 9:20:00 AM 136 mmHg 84 mmHg 71 bpm 18 rpm 96.5 F 290 lbs 67 in 45.42 kg/m 2.4937 m 12/08/2014 11:00:00 AM 145 mmHg 90 mmHg 86 bpm 18 rpm 97.6 F 294.5 lbs 67 in 46.12 kg/m2 2.51 m2 94 % 12/08/2014 8:46:00 AM 156 mmHg 82 mmHg 80 bpm 20 rpm 98 F 294 lbs 67 in 46.0464 kg/m 2.5108 m 97 % 11/11/2014 1:59:00 PM 144 mmHg 80 mmHg 88 bpm 20 rpm 97.7 F 299 lbs 67 in 46.83 kg/m2 2.53 m2 11/11/2014 8:21:00 AM 188 mmHg 78 mmHg 87 bpm 22 rpm 97.9 F 300 lbs 67 in 46.9862 kg/m 2.5363 m 91 % 10/14/2014 1:59:00 PM 132 mmHg 72 mmHg 88 bpm 18 rpm 97.4 F 301 lbs 67 in 47.14 kg/m2 2.54 m2 09/14/2014 10:01:00 AM 124 mmHg 70 mmHg 100 bpm 22 rpm 97.4 F 309 lbs 67 in 48.3957 kg/m 2.574 m 09/07/2014 8:56:00 AM 142 mmHg 84 mmHg 94 bpm 22 rpm 98.3 F 307 lbs 67 in 48.08 kg/m2 2.57 m2 93 % 07/19/2014 10:24:00 AM 124 mmHg 80 mmHg 82 bpm 16 rpm 97.2 F 309 lbs 67 in 48.3957 kg/m 2.574 m 07/14/2014 9:28:00 AM 188 mmHg 78 mmHg 80 bpm 20 rpm 98.2 F 312 lbs 67 in 48.87 kg/m2 2.59 m2 96 % 06/21/2014 10:05:00 AM 144 mmHg 94 mmHg 82 bpm 16 rpm 95.7 F 309 lbs 67 in 48.3957 kg/m 2.574 m 05/20/2014 9:47:00 AM 130 mmHg 66 mmHg 80 bpm 20 rpm 98.2 F 313 lbs 67 in 49.02 kg/m2 2.59 m2 90 % 05/14/2014 9:31:00 AM 138 mmHg 68 mmHg 92 bpm 20 rpm 97.3 F 310 lbs 67 in 48.5524 kg/m 2.5782 m 93 % 04/26/2014 2:30:00 PM 162 mmHg 94 mmHg 78 bpm 22 rpm 98.1 F 314 lbs 67 in 49.18 kg/m2 2.59 m2 03/24/2014 2:11:00 PM 140 mmHg 80 mmHg 84 bpm 16 rpm 97.5 F 311 lbs 67 in 48.709 kg/m 2.5824 m 02/24/2014 1:07:00 PM 108 mmHg 70 mmHg 84 bpm 16 rpm 95 F 309.375 lbs 67 in 48.45 kg/m2 2.58 m2 01/05/2014 1:43:00 PM 166 mmHg 80 mmHg 86 bpm 26 rpm 97.8 F 308 lbs 67 in 48.2391 kg/m 2.5699 m 94 % 12/23/2013 11:21:00 AM 122 mmHg 80 mmHg 96 bpm 22 rpm 98.1 F 304 lbs 67 in 47.61 kg/m2 2.55 m2 97 % 12/23/2013 10:05:00 AM 118 mmHg 80 mmHg 72 bpm 16 rpm 96.5 F 305.375 lbs 67 in 47.828 kg/m 2.5589 m 12/18/2013 9:53:00 AM 100 mmHg 80 mmHg 91 bpm 22 rpm 97.4 F 306 lbs 67 in 47.93 kg/m2 2.56 m2 97 % 12/08/2013 3:32:00 PM 126 mmHg 64 mmHg 88 bpm 18 rpm 98.7 F 310.5 lbs 67 in 48.6307 kg/m 2.5803 m 97 % 11/25/2013 8:49:00 AM 124 mmHg 90 mmHg 82 bpm 16 rpm 97.8 F 313.375 lbs 67 in 49.08 kg/m2 2.59 m2 10/29/2013 9:06:00 AM 136 mmHg 80 mmHg 80 bpm 22 rpm 98.2 F 313 lbs 67 in 49.0222 kg/m 2.5907 m 100 % 09/22/2013 9:19:00 AM 122 mmHg 80 mmHg 84 bpm 24 rpm 97.9 F 313 lbs 64 in 53.73 kg/m2 2.53 m2 97 % 07/28/2013 9:05:00 AM 108 mmHg 80 mmHg 66 bpm 14 rpm 97.4 F 314 lbs 67 in 49.1788 kg/m 2.5948 m 07/21/2013 9:47:00 AM 136 mmHg 70 mmHg 84 bpm 20 rpm 98.1 F 311 lbs 67 in 48.71 kg/m2 2.58 m2 98 % 07/08/2013 8:43:00 AM 124 mmHg 82 mmHg 72 bpm 16 rpm 95.8 F 313 lbs 67 in 49.0222 kg/m 2.5907 m 05/06/2013 9:40:00 AM 138 mmHg 78 mmHg 70 bpm 16 rpm 98 F 318 lbs 67 in 49.81 kg/m2 2.61 m2 04/07/2013 9:44:00 AM 140 mmHg 82 mmHg 84 bpm 16 rpm 95.4 F 325 lbs 67 in 50.9017 kg/m 2.6398 m 02/26/2013 8:50:00 AM 150 mmHg 88 mmHg 78 bpm 18 rpm 98 F 314 lbs 67 in 49.18 kg/m2 2.59 m2 01/06/2013 9:14:00 AM 112 mmHg 78 mmHg 84 bpm 18 rpm 97.3 F 314.375 lbs 67 in 49.2376 kg/m 2.5963 m 12/09/2012 10:20:00 AM 102 mmHg 68 mmHg 86 bpm 18 rpm 97.5 F 311.375 lbs 97 % 11/26/2012 9:48:00 AM 112 mmHg 90 mmHg 84 bpm 18 rpm 98.3 F 308.5 lbs 67 in 48.3174 kg/m 2.572 m 10/29/2012 8:43:00 AM 134 mmHg 88 mmHg 88 bpm 18 rpm 97.8 F 313.5 lbs 67 in 49.10 kg/m2 2.59 m2 10/09/2012 9:33:00 AM 110 mmHg 60 mmHg 88 bpm 20 rpm 97.4 F 310 lbs 67 in 48.5524 kg/m 2.5782 m 96 % 08/19/2012 8:09:00 AM 144 mmHg 68 mmHg 70 bpm 18 rpm 98 F 306 lbs 67 in 47.93 kg/m2 2.56 m2 08/04/2012 9:26:00 AM 142 mmHg 80 mmHg 84 bpm 20 rpm 97.1 F 301 lbs 67 in 47.1428 kg/m 2.5405 m 98 % 07/24/2012 10:11:00 AM 118 mmHg 72 mmHg 66 bpm 16 rpm 96.9 F 303 lbs 67 in 47.46 kg/m2 2.55 m2 07/16/2012 8:08:00 AM 140 mmHg 72 mmHg 70 bpm 18 rpm 97.4 F 299 lbs 67 in 46.8295 kg/m 2.5321 m 05/19/2012 10:08:00 AM 144 mmHg 76 mmHg 78 bpm 22 rpm 98 F 303 lbs 67 in 47.46 kg/m2 2.55 m2 98 % 05/14/2012 10:12:00 AM 122 mmHg 90 mmHg 78 bpm 16 rpm 97.2 F 303 lbs 67 in 47.456 kg/m 2.5489 m 03/13/2012 1:17:00 PM 132 mmHg 84 mmHg 80 bpm 16 rpm 96.1 F 304.375 lbs 67 in 47.67 kg/m2 2.55 m2 02/05/2012 9:20:00 AM 140 mmHg 70 mmHg 78 bpm 22 rpm 97.9 F 303 lbs 67 in 47.456 kg/m 2.5489 m 01/31/2012 4:01:00 PM 142 mmHg 80 mmHg 74 bpm 16 rpm 97 F 301 lbs 67 in 47.14 kg/m2 2.54 m2 01/16/2012 1:48:00 PM 164 mmHg 96 mmHg 84 bpm 16 rpm 95.8 F 303 lbs 67 in 47.456 kg/m 2.5489 m 01/01/2012 9:03:00 AM 178 mmHg 88 mmHg 80 bpm 20 rpm 98.2 F 312 lbs 67 in 48.87 kg/m2 2.59 m2 11/16/2011 8:06:00 AM 110 mmHg 70 mmHg 80 bpm 16 rpm 95.9 F 302.5 lbs 67 in 47.3777 kg/m 2.5468 m 10/05/2011 8:16:00 AM 124 mmHg 80 mmHg 82 bpm 16 rpm 95.9 F 307 lbs 67 in 48.08 kg/m2 2.57 m2 10/01/2011 10:50:00 AM 142 mmHg 80 mmHg 76 bpm 18 rpm 97.7 F 306.5 lbs 67 in 48.0042 kg/m 2.5636 m 09/06/2011 8:08:00 AM 122 mmHg 82 mmHg 88 bpm 16 rpm 97.1 F 305 lbs 67 in 47.77 kg/m2 2.56 m2 07/26/2011 10:03:00 AM 134 mmHg 76 mmHg 78 bpm 18 rpm 98.2 F 295 lbs 67 in 46.2031 kg/m 2.5151 m 06/19/2011 3:51:00 PM 142 mmHg 94 mmHg 80 bpm 16 rpm 95.8 F 300.25 lbs 06/06/2011 8:09:00 AM 130 mmHg 80 mmHg 78 bpm 18 rpm 97.1 F 307 lbs 03/22/2011 11:10:00 AM 120 mmHg 80 mmHg 88 bpm 20 rpm 97.3 F 307 lbs 03/05/2011 3:21:00 PM 134 mmHg 70 mmHg 72 bpm 18 rpm 98.2 F 310 lbs 01/08/2011 8:23:00 AM 136 mmHg 80 mmHg 82 bpm 22 rpm 98.7 F 307 lbs 12/27/2010 2:51:00 PM 126 mmHg 82 mmHg 84 bpm 18 rpm 96.3 F 308 lbs 11/29/2010 12:56:00 PM 118 mmHg 80 mmHg 84 bpm 18 rpm 96.2 F 309 lbs 11/07/2010 10:54:00 AM 134 mmHg 72 mmHg 76 bpm 20 rpm 98.2 F 304 lbs 09/28/2010 8:23:00 AM 122 mmHg 84 mmHg 76 bpm 20 rpm 97.4 F 304 lbs 08/28/2010 8:15:00 AM 142 mmHg 90 mmHg 82 bpm 20 rpm 97.7 F 306 lbs 08/07/2010 4:13:00 PM 160 mmHg 90 mmHg 68 bpm 20 rpm 98.4 F 304 lbs 07/25/2010 1:19:00 PM 130 mmHg 76 mmHg 78 bpm 22 rpm 98 F 299 lbs 06/27/2010 8:04:00 AM 124 mmHg 80 mmHg 86 bpm 18 rpm 97 F 306 lbs 06/14/2010 9:50:00 AM 144 mmHg 76 mmHg 78 bpm 18 rpm 98.1 F 303 lbs 06/01/2010 1:34:00 PM 138 mmHg 78 mmHg 80 bpm 20 rpm 97.7 F 302 lbs 04/17/2010 9:50:00 AM 130 mmHg 60 mmHg 96 bpm 20 rpm 97.9 F 305 lbs 04/06/2010 10:59:00 AM 100 mmHg 64 mmHg 86 bpm 22 rpm 97.4 F 307 lbs 03/16/2010 1:21:00 PM 124 mmHg 82 mmHg 88 bpm 22 rpm 96.9 F 311.5 lbs 03/15/2010 9:20:00 AM 144 mmHg 72 mmHg 84 bpm 22 rpm 97.2 F 309 lbs 02/23/2010 8:56:00 AM 124 mmHg 82 mmHg 72 bpm 18 rpm 97.8 F 308 lbs 02/08/2010 8:20:00 AM 138 mmHg 92 mmHg 70 bpm 18 rpm 98 F 307 lbs 12/28/2009 8:40:00 AM 110 mmHg 70 mmHg 76 bpm 20 rpm 97.4 F 308 lbs 12/21/2009 10:10:00 AM 160 mmHg 80 mmHg 82 bpm 20 rpm 97.6 F 298 lbs 12/14/2009 1:08:00 PM 122 mmHg 68 mmHg 72 bpm 20 rpm 97 F 302 lbs 12/06/2009 11:27:00 AM 102 mmHg 60 mmHg 84 bpm 24 rpm 98 F 303 lbs 11/03/2009 2:34:00 PM 138 mmHg 78 mmHg 76 bpm 22 rpm 98.7 F 299 lbs 09/08/2009 8:20:00 AM 124 mmHg 84 mmHg 64 bpm 16 rpm 98.1 F 303.25 lbs 08/23/2009 8:55:00 AM 108 mmHg 70 mmHg 68 bpm 18 rpm 98 F 300 lbs Social History Name Description Comments recieving Social Security Disability lives with family member spouse & grown children GED Denies illicit substance abuse Alcohol Current - status unknown occassional,less than 3-4 drinks pear year Sedentary disabeled Did not serve Tobacco Current every day smoker History of Procedures Date Ordered Description Order Status 06/20/2015 12:00 AM RADEX SHOULDER COMPLETE MINIMUM 2 VIEWS Reviewed 06/20/2015 12:00 AM RADEX ELBOW 2 VIEWS Reviewed 07/11/2015 12:00 AM DRAIN/INJ JOINT/BURSA W/O US Reviewed 07/11/2015 12:00 AM Kenalog, Per 10 Mg [facility]#5753-9051-41 Reviewed 12/07/2014 12:00 AM OFFICE/OUTPATIENT VISIT EST Reviewed 06/19/2011 12:00 AM DRAIN/INJ JOINT/BURSA W/O US Reviewed 06/19/2011 12:00 AM Kenalog 40 Mg [facility]#1914-2340-26 Reviewed 08/25/2015 12:00 AM OFFICE/OUTPATIENT VISIT EST Reviewed 08/23/2015 12:00 AM Decadron, Per 1 Mg [facility]# [address]-17 Reviewed 08/23/2015 12:00 AM Depo-Medrol, Per 80 Mg [facility]#[address]-74 Reviewed 09/07/2015 12:00 AM X-RAY EXAM L-S SPINE 2/3 VWS Reviewed 09/07/2015 12:00 AM COMPLETE CBC W/AUTO DIFF WBC Reviewed 09/07/2015 12:00 AM ASSAY THYROID STIM HORMONE Reviewed 09/07/2015 12:00 AM COMPREHEN METABOLIC PANEL Reviewed 09/07/2015 12:00 AM URNLS DIP STICK/TABLET RGNT AUTO W/O MICROSCOPY Reviewed 09/26/2015 12:00 AM Pain Management Consult Reviewed 11/03/2009 12:00 AM PROTHROMBIN TIME Reviewed 10/23/2015 12:00 AM Decadron, Per 1 Mg [facility]# [address]-19 Reviewed 10/23/2015 12:00 AM Depo-Medrol, Per 80 Mg [facility]#[address]-87 Reviewed 07/26/2011 12:00 AM X-RAY EXAM OF ABDOMEN Reviewed 11/21/2015 12:00 AM Orthopedics Consultation Reviewed 11/21/2015 12:00 AM Physical Therapy Consultation Reviewed 12/20/2015 12:00 AM EXTREMITY STUDY Reviewed 10/12/2011 12:00 AM EXTREMITY STUDY Reviewed 05/10/2016 12:00 AM CONTRAST X-RAY OF SHOULDER Reviewed 07/09/2016 12:00 AM PNEUMOCOCCAL VACC 13 RIP IM Reviewed 08/08/2016 12:00 AM Decadron, Per 1 Mg [facility]# [address]-88 Reviewed 08/08/2016 12:00 AM Depo-Medrol, Per 80 Mg [facility]#[address]-16 Reviewed 01/01/2012 12:00 AM AIRWAY INHALATION TREATMENT Reviewed 01/01/2012 12:00 AM Rocephin 1 gm [facility]#[address]-34 Reviewed 01/16/2012 12:00 AM DRAIN/INJ JOINT/BURSA W/O US Reviewed 01/16/2012 12:00 AM Kenalog per 10Mg [facility]#[address]-40(Srinath) Reviewed 09/26/2016 12:00 AM CHEST X-RAY 2VW FRONTAL&LATL Reviewed 10/23/2016 12:00 AM INJECT SPINE LUMBAR/SACRAL Reviewed 02/05/2012 12:[address] ABDOMEN W/O & W/DYE Reviewed 02/05/2012 12:[address] PELVIS W/O & W/DYE Reviewed 11/01/2016 12:00 AM URNLS DIP STICK/TABLET RGNT AUTO W/O MICROSCOPY Reviewed 11/20/2016 12:00 AM GLYCOSYLATED HEMOGLOBIN TEST Reviewed 11/20/2016 12:00 AM HEPATITIS C AB TEST Reviewed 02/22/2017 12:00 AM COMPREHEN METABOLIC PANEL Reviewed 02/22/2017 12:00 AM COMPLETE CBC W/AUTO DIFF WBC Reviewed 02/22/2017 12:00 AM GLYCOSYLATED HEMOGLOBIN TEST Reviewed 03/11/2017 12:00 AM Toradol 60 Mg Injection Reviewed 03/28/2017 12:00 AM Decadron 4mg Injection Reviewed 03/28/2017 12:00 AM Depo-Medrol 40mg Injection Reviewed 05/29/2012 12:00 AM DRAIN/INJ JOINT/BURSA W/O US Reviewed 05/29/2012 12:00 AM SYNVISC, Per 1 Mg (2ml) [facility] [address]-30 Reviewed 06/05/2012 12:00 AM DRAIN/INJ JOINT/BURSA W/O US Reviewed 06/05/2012 12:00 AM SYNVISC, Per 1 Mg (2ml) [facility] [address]-48 Reviewed 06/12/2012 12:00 AM DRAIN/INJ JOINT/BURSA W/O US Reviewed 06/12/2012 12:00 AM SYNVISC, Per 1 Mg (2ml) [facility] [address]-24 Reviewed 06/06/2017 12:00 AM Decadron 4mg Injection Reviewed 06/06/2017 12:00 AM Depo-Medrol 40mg Injection Reviewed 06/06/2017 12:[address] ABD & PELV 1/> REGNS Reviewed 07/16/2012 12:00 AM Hepatobiliary ductal system imaging with functional assessment Reviewed 07/16/2012 12:00 AM Decadron 8 mg [facility]#[id number] Reviewed 07/16/2012 12:00 AM Depo-Medrol 80mg [facility]#[id number] Reviewed 07/16/2012 12:00 AM COMPREHEN METABOLIC PANEL Reviewed 07/16/2012 12:00 AM LIPID PANEL Reviewed 07/16/2012 12:00 AM Flu Injection 3 Years And Above [facility]# [address]-61 RHC Reviewed 08/19/2012 12:00 AM METABOLIC PANEL TOTAL CA Reviewed 12/21/2009 12:[address] ABDOMEN W/O & W/DYE Reviewed 10/22/2017 12:00 AM Decadron 4mg Injection Reviewed 10/22/2017 12:00 AM Depo-Medrol 40mg Injection Reviewed 10/02/2012 12:00 AM CHEST X-RAY 2VW FRONTAL&LATL Reviewed 10/09/2012 12:00 AM Decadron 8 mg [facility]#[id number] Reviewed 10/09/2012 12:00 AM Depo-Medrol 80mg [facility]#[id number] Reviewed 12/09/2012 12:00 AM CHEST X-RAY 2VW FRONTAL&LATL Reviewed 12/09/2012 12:00 AM ASSAY OF TROPONIN QUANT Reviewed 12/09/2012 12:00 AM ASSAY OF MYOGLOBIN Reviewed 12/09/2012 12:00 AM FIBRIN DEGRADATION QUANT Reviewed 12/09/2012 12:00 AM CREATINE MB FRACTION Reviewed 12/09/2012 12:00 AM Cbc With Auto Differential % Reviewed 12/09/2012 12:00 AM COMPREHEN METABOLIC PANEL Reviewed 12/09/2012 12:00 AM ASSAY OF NATRIURETIC PEPTIDE Reviewed 01/29/2013 12:00 AM DRAIN/INJ JOINT/BURSA W/O US Reviewed 01/29/2013 12:00 AM SYNVISC-ONE, Per 1 Mg (6ml) [facility] [address]-97 Reviewed 02/26/2013 12:00 AM Physical Therapy Reviewed 02/26/2013 12:[address] NECK SPINE W/O & W/DYE Reviewed 04/07/2013 12:00 AM INJECT TRIGGER POINTS 3/> Reviewed 04/07/2013 12:00 AM Kenalog per 10Mg [facility]#[address]-27(Srinath) Reviewed 07/21/2013 12:00 AM CHEST X-RAY 2VW FRONTAL&LATL Reviewed 07/21/2013 12:00 AM Decadron 8 mg [facility]# [address]-11 Reviewed 07/21/2013 12:00 AM Depo-Medrol 80 mg [facility]#[address]-97 Reviewed 07/21/2013 12:00 AM Rocephin 500 mg [facility]#7403-1297-82 Reviewed 09/22/2013 12:00 AM CHEST X-RAY 2VW FRONTAL&LATL Reviewed 10/29/2013 12:00 AM X-RAY EXAM OF ABDOMEN Reviewed 12/08/2013 12:00 AM THER/PROPH/DIAG INJ SC/IM Reviewed 12/08/2013 12:00 AM Decadron, Per 1 Mg [facility]# [address]-38 Reviewed 12/08/2013 12:00 AM Depo-Medrol, Per 80 Mg [facility]#9325-6327-44 Reviewed 12/08/2013 12:00 AM CHEST X-RAY 2VW FRONTAL&LATL Reviewed 12/18/2013 12:00 AM COMPLETE CBC W/AUTO DIFF WBC Reviewed 12/18/2013 12:00 AM COMPREHEN METABOLIC PANEL Reviewed 12/18/2013 12:00 AM LIPID PANEL Reviewed 12/18/2013 12:00 AM GLYCOSYLATED HEMOGLOBIN TEST Reviewed 12/18/2013 12:00 AM MICROALBUMIN QUANTITATIVE Reviewed 12/18/2013 12:00 AM Prostate Cancer Screening PSA Reviewed 12/18/2013 12:00 AM URINE CULTURE/COLONY COUNT Reviewed 12/18/2013 12:00 AM ASSAY OF NATRIURETIC PEPTIDE Reviewed 12/23/2013 12:[address] LUMBAR SPINE W/O DYE Reviewed 01/05/2014 12:00 AM Decadron 8 mg [facility]# [address]-58 Reviewed 01/05/2014 12:00 AM Depo-Medrol 80 mg [facility]#[address]-76 Reviewed 01/05/2014 12:00 AM Rocephin 1 gram [facility]#5392-65[address]-72 Reviewed 03/15/2010 12:00 AM PROTHROMBIN TIME Reviewed 06/01/2010 12:00 AM URINALYSIS NONAUTO W/SCOPE Reviewed 06/14/2010 12:00 AM METABOLIC PANEL TOTAL CA Reviewed 06/14/2010 12:00 AM GLYCOSYLATED HEMOGLOBIN TEST Reviewed 08/07/2010 12:00 AM COMPLETE CBC W/AUTO DIFF WBC Reviewed 08/07/2010 12:00 AM COMPREHEN METABOLIC PANEL Reviewed 08/07/2010 12:00 AM ASSAY OF LIPASE Reviewed 08/07/2010 12:00 AM URINALYSIS AUTO W/O SCOPE Reviewed 08/08/2010 12:00 AM URINALYSIS AUTO W/O SCOPE Reviewed 03/24/2014 12:00 AM X-RAY EXAM OF KNEE 1 OR 2 Reviewed 09/28/2010 12:00 AM N BLOCK INJ INTERCOST SNG Reviewed 09/28/2010 12:00 AM Kenalog per 10Mg [facility]#[address]-64(Srinath) Reviewed 05/05/2014 12:00 AM DRAIN/INJ JOINT/BURSA W/O US Reviewed 05/05/2014 12:00 AM SYNVISC-ONE, Per 1 Mg (6ml) [facility] [id number] Reviewed 05/06/2014 12:00 AM COMPREHEN METABOLIC PANEL Reviewed 05/06/2014 12:00 AM ASSAY OF NATRIURETIC PEPTIDE Reviewed 05/06/2014 12:00 AM GLYCOSYLATED HEMOGLOBIN TEST Reviewed 05/06/2014 12:00 AM MICROALBUMIN QUANTITATIVE Reviewed 05/06/2014 12:00 AM LIPID PANEL Reviewed 05/20/2014 12:00 AM CHEST X-RAY 2VW FRONTAL&LATL Reviewed 05/20/2014 12:00 AM COMPLETE CBC W/AUTO DIFF WBC Reviewed 11/07/2010 12:00 AM METABOLIC PANEL TOTAL CA Reviewed 11/07/2010 12:00 AM ASSAY OF NATRIURETIC PEPTIDE Reviewed 11/07/2010 12:00 AM Rocephin 500 mg [facility]#[id number] Reviewed 07/14/2014 12:00 AM Fluzone MEDICARE Only Reviewed 11/29/2010 12:00 AM INJECT TRIGGER POINTS 3/> Reviewed 11/29/2010 12:00 AM Kenalog per 10Mg [facility]#[id number](Srinath) Reviewed 07/14/2014 12:00 AM Decadron injection Reviewed 07/14/2014 12:00 AM Depo-Medrol 40mg Reviewed 01/08/2011 12:00 AM X-RAY EXAM OF ABDOMEN Reviewed 10/14/2014 12:00 AM RADIOLOGIC EXAM SACROILIAC JOINTS 3/MORE VIEWS Reviewed 10/14/2014 12:00 AM X-RAY EXAM L-S SPINE 2/3 VWS Reviewed 03/05/2011 12:00 AM ECHO EXAM OF ABDOMEN Reviewed 03/12/2011 12:00 AM URINALYSIS AUTO W/O SCOPE Reviewed 03/05/2011 12:00 AM URINALYSIS AUTO W/O SCOPE Reviewed 05/09/2015 12:00 AM RENAL FUNCTION PANEL Reviewed 05/16/2015 12:[address] ABD & PELV W/CONTRAST Reviewed 05/16/2015 12:00 AM LOWER EXTREMITY STUDY Reviewed 05/16/2015 12:00 AM LOWER EXTREMITY STUDY Reviewed Results Summary Date and Description Results 11/03/2009 3:21 PM PROTIME 30.80 secsINR 3.2 03/15/2010 10:06 AM PROTIME 15.40 secsINR 1.4 06/01/2010 2:06 PM COLOR YELLOW APPEARANCE CLEAR SPEC GRAV >=1.030 pH 5.0 PROTEIN NEGATIVE GLUCOSE NEGATIVE KETONE NEGATIVE BILIRUBIN NEGATIVE BLOOD NEGATIVE NITRITE NEGATIVE LEUK SCREEN NEGATIVE WBC/HPF 0-5 RBC/HPF NEGATIVE CASTS/LPF NEGATIVE CRYSTALS NEGATIVE MUCOUS THRDS FEW BACTERIA FEW EPITH CELLS FEW SQUAMOUS TRICHOMONAS NEGATIVE YEAST NEGATIVE CULT SET UP? NO 06/14/2010 10:19 AM GLYCOHEMOGLOBIN A1C 7.40 %GLUCOSE 122.0 mg/dLSODIUM 138.0 mmol/LPOTASSIUM 4.80 mmol/LCHLORIDE 104.0 mmol/LCO2 24.0 mmol/LBUN 14.0 mg/ dLCREATININE 1.10 mg/dLCALCIUM 9.50 mg/dLAGE 50 GFR NonAA 71 GFR AA 86 eGFR >60 mL/min/1.73 m2eGFR AA* >60 08/07/2010 5:23 PM LIPASE 48.0 U/LGLUCOSE 106.0 mg/dLSODIUM 137.0 mmol/ LPOTASSIUM 4.30 mmol/LCHLORIDE 100.0 mmol/LCO2 27.0 mmol/LBUN 16.0 mg/ dLCREATININE 1.30 mg/dLSGOT/AST 20.0 IU/LSGPT/ALT 23.0 IU/LALK PHOS 104.0 IU/ LTOTAL PROTEIN 7.80 g/dLALBUMIN 4.50 g/dLTOTAL BILI 0.20 mg/dLCALCIUM 9.60 mg/ dLAGE 50 GFR NonAA 58 GFR AA 70 eGFR 58 eGFR AA* >60 WBC 10.3 RBC 5.02 HGB 13.90 g/dLHCT 42.40 %MCV 85.0 fLMCH 27.70 pgMCHC 32.80 g/dLRDW SD 48 RDW CV 15.70 %MPV 9.20 fLPLT 307 NRBC# 0.00 NRBC% 0.0 %NEUT 47.70 %%LYMP 42.50 %%MONO 6.30 %%EOS 3.10 %%BASO 0.40 %#NEUT 4.90 #LYMP 4.37 #MONO 0.65 #EOS 0.32 #BASO 0.04 MANUAL DIFF NOT IND 11/07/2010 11:39 AM BNP < 10 PG/MLGLUCOSE 94.0 mg/dLSODIUM 139.0 mmol/ LPOTASSIUM 4.10 mmol/LCHLORIDE 103.0 mmol/LCO2 27.0 mmol/LBUN 11.0 mg/ dLCREATININE 1.20 mg/dLCALCIUM 9.50 mg/dLAGE 50 GFR NonAA 64 GFR AA 78 eGFR >60 mL/min/1.73 m2eGFR AA* >60 07/16/2012 8:56 AM GLUCOSE 147.0 mg/dLSODIUM 138.0 mmol/LPOTASSIUM 4.30 mmol/ LCHLORIDE 103.0 mmol/LCO2 26.0 mmol/LBUN 17.0 mg/dLCREATININE 1.30 mg/dLSGOT/ AST 18.0 IU/LSGPT/ALT 22.0 IU/LALK PHOS 92.0 IU/LTOTAL PROTEIN 7.40 g/dLALBUMIN 4.20 g/dLTOTAL BILI 0.40 mg/dLCALCIUM 9.20 mg/dLAGE 52 GFR NonAA 58 GFR AA 70 eGFR 58 eGFR AA* 60 TRIGLYCERIDES 193.0 mg/dLCHOLESTEROL 170.0 mg/dLHDL 28.0 mg/ dLTOT CHOL/HDL 6.1 LDL (CALC) 103.0 mg/dL 08/19/2012 9:05 AM GLUCOSE 116.0 mg/dLSODIUM 138.0 mmol/LPOTASSIUM 3.70 mmol/ LCHLORIDE 101.0 mmol/LCO2 27.0 mmol/LBUN 28.0 mg/dLCREATININE 1.20 mg/dLCALCIUM 9.0 mg/dLAGE 52 GFR NonAA 63 GFR AA 76 eGFR 60 eGFR AA* 60 12/09/2012 11:00 AM WBC 10.8 RBC 5.02 HGB 14.80 g/dLHCT 45.0 %MCV 90.0 fLMCH 29.50 pgMCHC 32.90 g/dLRDW SD 52 RDW CV 16.0 %MPV 9.70 fLPLT 269 NRBC# 0.00 NRBC % 0.0 %NEUT 60.30 %%LYMP 31.0 %%MONO 5.80 %%EOS 2.70 %%BASO 0.20 %#NEUT 6.50 # LYMP 3.34 #MONO 0.62 #EOS 0.29 #BASO 0.02 MANUAL DIFF NOT IND D-DIMER QUANT 0.25 TROPONIN-I AD < 0.04 ng/mLBNP < 10 PG/MLGLUCOSE 156.0 mg/ dLSODIUM 144.0 mmol/LPOTASSIUM 3.90 mmol/LCHLORIDE 102.0 mmol/LCO2 29.0 mmol/ LBUN 14.0 mg/dLCREATININE 1.10 mg/dLSGOT/AST 22.0 IU/LSGPT/ALT 19.0 IU/LALK PHOS 86.0 IU/LTOTAL PROTEIN 8.0 g/dLALBUMIN 4.0 g/dLTOTAL BILI 0.30 mg/ dLCALCIUM 10.0 mg/dLAGE 52 GFR NonAA 70 GFR AA 85 eGFR 60 eGFR AA* 60 CPK 181 IU /LTOTAL MB 0.8 INDEX 0.4 12/21/2013 8:20 AM CREAT UR 230.20 mg/dLMICROALBUMIN UR 376.0 ug/mLALB:CREAT RATIO 163 WBC 14.9 RBC 5.15 HGB 15.0 g/dLHCT 45.90 %MCV 89.0 fLMCH 29.10 pgMCHC 32.70 g/dLRDW SD 50 RDW CV 15.60 %MPV 9.70 fLPLT 289 NRBC# 0.00 NRBC% 0.0 %NEUT 62.90 %%LYMP 28.30 %%MONO 6.90 %%EOS 1.60 %%BASO 0.30 %#NEUT 9.38 #LYMP 4.23 # MONO 1.03 #EOS 0.24 #BASO 0.05 MANUAL DIFF SEE BELOW SEGS 58 BANDS 4 LYMPHS 32 MONOS 5 EOS 1.0 %BNP <10 PG/MLCOLOR YELLOW APPEARANCE HAZY SPEC GRAV 1.020 pH 6.0 PROTEIN 100 GLUCOSE NEGATIVE KETONE NEGATIVE BILIRUBIN NEGATIVE BLOOD NEGATIVE NITRITE NEGATIVE LEUK SCREEN NEGATIVE WBC/HPF NEGATIVE RBC/HPF NEGATIVE CASTS/LPF NEGATIVE CRYSTALS NEGATIVE MUCOUS THRDS NEGATIVE BACTERIA FEW EPITH CELLS FEW SQUAMOUS TRICHOMONAS NEGATIVE YEAST NEGATIVE HGB A1C 8.20 % Est Avg Glucose 188.6 mg/dLTRIGLYCERIDES 210.0 mg/dLCHOLESTEROL 213.0 mg/dLHDL 46.0 mg/dLTOT CHOL/HDL 4.6 LDL (CALC) 125.0 mg/dLGLUCOSE 187.0 mg/dLSODIUM 136.0 mmol/LPOTASSIUM 4.40 mmol/LCHLORIDE 98.0 mmol/LCO2 24.0 mmol/LBUN 16.0 mg/ dLCREATININE 1.20 mg/dLSGOT/AST 14.0 IU/LSGPT/ALT 19.0 IU/LALK PHOS 127.0 IU/ LTOTAL PROTEIN 7.80 g/dLALBUMIN 4.0 g/dLTOTAL BILI 0.30 mg/dLCALCIUM 9.40 mg/ dLAGE 53 GFR NonAA 63 GFR AA 76 eGFR 60 eGFR AA* 60 PSA TOTAL 0.60 ng/mL 05/07/2014 8:57 AM BNP 26.0 pg/mLMICROALBUMIN UR 353.0 ug/mLTRIGLYCERIDES 236.0 mg/dLCHOLESTEROL 203.0 mg/dLHDL 32.0 mg/dLTOT CHOL/HDL 6.3 LDL (CALC) 124.0 mg/dLGLUCOSE 172.0 mg/dLSODIUM 139.0 mmol/LPOTASSIUM 4.80 mmol/LCHLORIDE 101.0 mmol/LCO2 28.0 mmol/LBUN 13.0 mg/dLCREATININE 1.20 mg/dLSGOT/AST 18.0 IU/ LSGPT/ALT 15.0 IU/LALK PHOS 86.0 IU/LTOTAL PROTEIN 7.30 g/dLALBUMIN 3.80 g/ dLTOTAL BILI 0.40 mg/dLCALCIUM 9.40 mg/dLAGE 54 GFR NonAA 63 GFR AA 76 eGFR 60 eGFR AA* 60 HGB A1C 8.60 %Est Avg Glucose 200.1 mg/dL 05/20/2014 10:45 AM WBC 12.6 RBC 5.17 HGB 15.10 g/dLHCT 45.80 %MCV 89.0 fLMCH 29.20 pgMCHC 33.0 g/dLRDW SD 50 RDW CV 15.60 %MPV 9.80 fLPLT 303 NRBC# 0.00 NRBC % 0.0 %NEUT 57.90 %%LYMP 32.80 %%MONO 7.0 %%EOS 1.90 %%BASO 0.40 %#NEUT 7.26 # LYMP 4.12 #MONO 0.88 #EOS 0.24 #BASO 0.05 MANUAL DIFF NOT IND 05/09/2015 12:10 PM GLUCOSE 105.0 mg/dLSODIUM 142.0 mmol/LPOTASSIUM 4.30 mmol/ LCHLORIDE 103.0 mmol/LCO2 29.0 mmol/LBUN 10.0 mg/dLCREATININE 1.70 mg/dLALBUMIN 3.40 g/dLCALCIUM 9.0 mg/dLPHOSPHORUS 3.30 mg/dLAGE 55 GFR NonAA 42 GFR AA 51 eGFR 42 eGFR AA* 51 09/07/2015 9:58 AM COLOR YELLOW APPEARANCE CLEAR SPEC GRAV 1.025 pH 5.5 PROTEIN 100 GLUCOSE NEGATIVE mg/dLKETONE NEGATIVE BILIRUBIN NEGATIVE BLOOD NEGATIVE NITRITE NEGATIVE LEUK SCREEN NEGATIVE MICRO INDICATED? SEE BELOW WBC/ HPF 0-5 RBC/HPF NEGATIVE CASTS/LPF NEGATIVE /LPFCRYSTALS NEGATIVE MUCOUS THRDS NEGATIVE BACTERIA NEGATIVE EPITH CELLS FEW SQUAMOUS /HPFTRICHOMONAS NEGATIVE YEAST NEGATIVE CULT SET UP? NO GLUCOSE 101.0 mg/dLSODIUM 140.0 mmol/LPOTASSIUM 3.80 mmol/LCHLORIDE 105.0 mmol/LCO2 25.0 mmol/LBUN 22.0 mg/dLCREATININE 1.50 mg/ dLSGOT/AST 11.0 IU/LSGPT/ALT 7.0 IU/LALK PHOS 102.0 IU/LTOTAL PROTEIN 7.40 g/ dLALBUMIN 3.80 g/dLTOTAL BILI 0.30 mg/dLCALCIUM 8.80 mg/dLAGE 55 GFR NonAA 48 GFR AA 58 eGFR 48 eGFR AA* 58 WBC 7.3 RBC 4.56 HGB 13.40 g/dLHCT 40.30 %MCV 88.0 fLMCH 29.40 pgMCHC 33.30 g/dLRDW SD 62 RDW CV 19.30 %MPV 9.90 fLPLT 232 NRBC# 0.00 NRBC% 0.0 %NEUT 72.80 %%LYMP 16.80 %%MONO 7.80 %%EOS 2.20 %%BASO 0.40 %#NEUT 5.33 #LYMP 1.23 #MONO 0.57 #EOS 0.16 #BASO 0.03 MANUAL DIFF NOT IND TSH 2.390 uIU/mL 11/01/2016 2:02 PM COLOR YELLOW APPEARANCE CLEAR SPEC GRAV 1.025 pH 6.0 PROTEIN 100 GLUCOSE NEGATIVE mg/dLKETONE NEGATIVE BILIRUBIN NEGATIVE BLOOD NEGATIVE NITRITE NEGATIVE LEUK SCREEN NEGATIVE MICRO INDICATED? NOT INDICATED 11/20/2016 11:10 AM HGB A1C 5.90 %Est Avg Glucose 122.6 mg/dLHEPATITIS C 0.13 02/22/2017 10:30 AM HGB A1C 6.10 %Est Avg Glucose 128.4 mg/dLWBC 9.3 RBC 5.14 HGB 13.80 g/dLHCT 43.40 %MCV 84.0 fLMCH 26.80 pgMCHC 31.80 g/dLRDW SD 52 RDW CV 16.80 %MPV 9.0 fLPLT 264 NRBC# 0.00 NRBC% 0.0 %NEUT 72.20 %%LYMP 10.90 %%MONO 6.30 %%EOS 9.70 %%BASO 0.60 %#NEUT 6.73 #LYMP 1.02 #MONO 0.59 #EOS 0.91 #BASO 0.06 MANUAL DIFF NOT IND GLUCOSE 110.0 mg/dLSODIUM 142.0 mmol/LPOTASSIUM 4.20 mmol/LCHLORIDE 103.0 mmol/LCO2 31.0 mmol/LBUN 16.0 mg/dLCREATININE 1.40 mg/ dLSGOT/AST 8.0 IU/LSGPT/ALT 10.0 IU/LALK PHOS 106.0 IU/LTOTAL PROTEIN 7.10 g/ dLALBUMIN 3.70 g/dLTOTAL BILI 0.40 mg/dLCALCIUM 9.0 mg/dLAGE 57 GFR NonAA 52 GFR AA 63 eGFR 52 eGFR AA* >60 History Of Immunizations Name Date Admin Mfg Name Mfg Code Trade Name Lot# Route Inj Vis Given Vis Pub CVX Pneumococcal 07/09/2016 Rudy-Praxiafia [facility] Prevnar 13 [id number] Intramuscular Right Deltoid 07/09/2016 07/28/2015 133 History of Past Illness Name Date of Onset Comments SI joint pain Aug 23 2009 8:58AM Muscle Spasm Aug 23 2009 8:58AM Congestive Heart Failure Cardiomyopathy viral Hypertension Gastroesophageal Reflux Gout Hypercholesterolemia Diverticulosis of colon Chronic Obstructive Pulmonary Disease Gastritis Hernia, Hiatal pulmonary hypertension Carpal Tunnel Syndrome bilateral SI joint pain 08/23/2009 SI joint pain Sep 08 2009 8:25AM Muscle Spasm Sep 08 2009 8:25AM Congestive Heart Failure Nov 03 2009 2:47PM Pulmonary Hypertension, Primary Nov 03 2009 2:47PM Asthma Nov 03 2009 2:47PM Pneumonia Nov 03 2009 2:47PM Bronchitis, Acute Dec 06 2009 11:13AM Rhinitis, Allergic Dec 06 2009 11:13AM Chronic Obstructive Pulmonary Disease Dec 06 2009 11:13AM Heart Failure Dec 06 2009 11:13AM Hypertension Dec 06 2009 11:13AM SI joint pain Dec 14 2009 1:11PM Muscle Spasm Dec 14 2009 1:11PM Thoracic Spine Pain Dec 14 2009 1:11PM Diabetes Mellitus, Type II tests once per day Abdominal Pain, RLQ Dec 21 2009 10:12AM Abdominal Pain, LLQ Dec 21 2009 10:12AM SI joint pain Dec 28 2009 8:46AM Muscle Spasm Dec 28 2009 8:46AM Thoracic Spine Pain Dec 28 2009 8:46AM Degeneration of thoracic or lumbar intervertebral disc; thoracic or thoracolumbar intervertebral disc Dec 28 2009 8:46AM SI joint pain Feb 08 2010 8:24AM Muscle Spasm Feb 08 2010 8:24AM Thoracic Spine Pain Feb 08 2010 8:24AM Degeneration of thoracic or lumbar intervertebral disc; thoracic or thoracolumbar intervertebral disc Feb 08 2010 8:24AM Cervicalgia Feb 08 2010 8:24AM Lumbago SI joint pain Feb 23 2010 8:59AM Muscle Spasm Feb 23 2010 8:59AM Thoracic Spine Pain Feb 23 2010 8:59AM Degeneration of thoracic or lumbar intervertebral disc; thoracic or thoracolumbar intervertebral disc Feb 23 2010 8:59AM Cervicalgia Feb 23 2010 8:59AM Spondylosis, cervical without myelopathy Feb 23 2010 8:59AM Cerebrovascular Accident (CVA); History Mar 15 2010 9:22AM Back Pain Mar 15 2010 9:22AM Myalgia Mar 15 2010 9:22AM Chronic Obstructive Pulmonary Disease Mar 15 2010 9:22AM SI joint pain Mar 16 2010 1:24PM Muscle Spasm Mar 16 2010 1:24PM Thoracic Spine Pain Mar 16 2010 1:24PM Degeneration of thoracic or lumbar intervertebral disc; thoracic or thoracolumbar intervertebral disc Mar 16 2010 1:24PM Cervicalgia Mar 16 2010 1:24PM Spondylosis, cervical without myelopathy Mar 16 2010 1:24PM SI joint pain Apr 06 2010 11:02AM Muscle Spasm Apr 06 2010 11:02AM Thoracic Spine Pain Apr 06 2010 11:02AM Degeneration of thoracic or lumbar intervertebral disc; thoracic or thoracolumbar intervertebral disc Apr 06 2010 11:02AM Cervicalgia Apr 06 2010 11:02AM Spondylosis, cervical without myelopathy Apr 06 2010 11:02AM Cerebrovascular Accident (CVA) Apr 17 2010 9:54AM Dysuria Jun 01 2010 1:36PM Abdominal pain, Generalized Jun 01 2010 1:36PM Cerebrovascular Accident (CVA) Jun 01 2010 1:36PM Hypertension Jun 14 2010 9:52AM Hyperglycemia Jun 14 2010 9:52AM Hyperkalemia Jun 14 2010 9:52AM Benign essential hypertension 05/06/2014 SI joint pain Jun 27 2010 8:12AM Thoracic Spine Pain Jun 27 2010 8:12AM Degeneration of thoracic or lumbar intervertebral disc; thoracic or thoracolumbar intervertebral disc Jun 27 2010 8:12AM Cervicalgia Jun 27 2010 8:12AM Spondylosis, cervical without myelopathy Jun 27 2010 8:12AM Abdominal pain, Generalized Jun 27 2010 8:12AM Cerebrovascular Accident (CVA) Jun 27 2010 8:12AM Bronchitis, Acute Jul 25 2010 1:20PM Diabetes Mellitus, Type II Jul 25 2010 1:20PM Abdominal Pain Aug 07 2010 4:14PM Degeneration of lumbar intervertebral disc Aug 28 2010 8:15AM SI joint pain Aug 28 2010 8:15AM Muscle Spasm Aug 28 2010 8:15AM Cervicalgia Aug 28 2010 8:15AM Spondylosis, cervical without myelopathy Aug 28 2010 8:15AM myofascial pain 11/11/2014 Cervical spinal stenosis 11/11/2014 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 12/11/2014 Lung cancer 12/02/14 Left upper love-Squamous cell carcinoma Degeneration of lumbar intervertebral disc Sep 28 2010 8:35AM Spondylosis, cervical without myelopathy Sep 28 2010 8:35AM intercostal neuralgia Sep 28 2010 8:35AM Intercostal Neuralgia Sep 28 2010 8:57AM Bronchitis, Acute Nov 07 2010 10:56AM Sinusitis, Acute Nov 07 2010 10:56AM Hypertension Nov 07 2010 10:56AM Congestive Heart Failure Nov 07 2010 10:56AM Myofascial pain Nov 29 2010 1:32PM Spinal enthesopathy Nov 29 2010 1:32PM Degeneration of lumbar intervertebral disc Nov 29 2010 1:03PM Spondylosis, cervical without myelopathy Nov 29 2010 1:03PM intercostal neuralgia Nov 29 2010 1:03PM Degeneration of lumbar intervertebral disc Dec 27 2010 2:58PM Spondylosis, cervical without myelopathy Dec 27 2010 2:58PM intercostal neuralgia Dec 27 2010 2:58PM Abdominal pain, Generalized Jan 08 2011 8:23AM Constipation Jan 08 2011 8:23AM Abdominal Pain, RUQ Feb 13 2010 3:21PM Pain in joint; Knee,right Mar 22 2011 11:15AM 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, right 03/17/2017 Pain in joint; Knee,right Sep 2010 8:06AM Pain in joint; Knee,right Jun 19 2011 3:56PM Osteoarthrosis, lower leg Jun 19 2011 4:56PM Diarrhea Jul 26 2011 10:00AM Abdominal Pain, Periumbilical Jul 26 2011 10:00AM Nausea With Vomiting Jul 26 2011 10:00AM Degeneration of lumbar intervertebral disc Sep 06 2011 8:12AM Spondylosis, cervical without myelopathy Sep 06 2011 8:12AM intercostal neuralgia Sep 06 2011 8:12AM Chronic Obstructive Pulmonary Disease Oct 01 2011 10:52AM Degeneration of lumbar intervertebral disc Oct 05 2011 8:23AM Spondylosis, cervical without myelopathy Oct 05 2011 8:23AM intercostal neuralgia Oct 05 2011 8:23AM Edema right lower ext. Oct 12 2011 11:28AM Degeneration of lumbar intervertebral disc Nov 16 2011 8:10AM Spondylosis, cervical without myelopathy Nov 16 2011 8:10AM intercostal neuralgia Nov 16 2011 8:10AM Bronchitis, Acute Jan 01 2012 9:06AM Degeneration of lumbar intervertebral disc Jan 16 2012 1:56PM Pain in joint; Knee Left Jan 16 2012 1:56PM Osteoarthrosis, lower leg Jan 16 2012 2:50PM Abdominal Pain, RLQ Feb 05 2012 9:22AM Degeneration of lumbar intervertebral disc Jan 31 2012 4:07PM Pain in joint; Knee Left Jan 31 2012 4:07PM Degeneration of lumbar intervertebral disc Mar 13 2012 1:18PM Pain in joint; Knee Left Mar 13 2012 1:18PM Degeneration of lumbar intervertebral disc May 14 2012 10:24AM Pain in joint; Knee Left May 14 2012 10:24AM Bacterial Pneumonia - Improving May 19 2012 10:10AM Osteoarthritis, knee Sep 6 2011 9:42AM Osteoarthritis, knee May 13 2011 9:44AM Osteoarthritis, knee Jun 12 2012 9:54AM Abdominal Pain, RLQ Jul 16 2012 8:11AM Congestive Heart Failure Jul 16 2012 8:11AM Hypertension Jul 16 2012 8:11AM Hypercholesterolemia Jul 16 2012 8:11AM Diabetes Mellitus, Type II Jul 16 2012 8:11AM Cerebrovascular Disease, Late Effect Of Jul 16 2012 8:11AM Flu Jul 16 2012 1:24PM Seasonal Allergies Jul 16 2012 8:11AM Degeneration of lumbar intervertebral disc Jul 24 2012 10:12AM Pain in joint; Knee Left Jul 24 2012 10:12AM Diabetes Mellitus, Type II Aug 04 2012 9:28AM Cerebrovascular Disease, Late Effect Of Aug 04 2012 9:28AM Abdominal Pain, RUQ Aug 04 2012 9:28AM Hypertension Aug 19 2012 8:11AM Bronchitis, Acute Aug 19 2012 8:11AM Pharyngitis, Acute Aug 19 2012 8:11AM Chronic Cough Oct 02 2012 12:51PM Bronchitis, Acute Oct 09 2012 9:37AM Degeneration of lumbar intervertebral disc Oct 29 2012 8:51AM Pain in joint; Knee Left Oct 29 2012 8:51AM Degeneration of lumbar intervertebral disc Nov 26 2012 9:55AM Pain in joint; Knee Left Nov 26 2012 9:55AM Chest Pain Dec 09 2012 10:25AM Shortness Of Breath Dec 09 2012 10:25AM Wheezing Dec 09 2012 10:25AM Degeneration of lumbar intervertebral disc Jan 06 2013 9:16AM Pain in joint; Knee Left Jan 06 2013 9:16AM Osteoarthritis, knee Jan 29 2013 10:34AM Neck Pain Feb 26 2013 8:52AM Abdominal Pain, Epigastric Feb 26 2013 8:52AM Neck Muscle Spasm Feb 26 2013 8:52AM Myofascial pain Apr 07 2013 9:58AM Spinal enthesopathy Apr 07 2013 9:58AM Muscle Spasm Apr 07 2013 9:54AM Cervicalgia Apr 07 2013 9:54AM Spondylosis, cervical without myelopathy Apr 07 2013 9:54AM Abdominal Pain, Right upper quadrant May 06 2013 9:42AM Lumbago Jul 08 2013 8:57AM Lumbar spondylosis Jul 08 2013 8:57AM Lumbar degenerative disc disease Jul 08 2013 8:57AM Lumbar Radiculitis Jul 08 2013 8:57AM Cervicalgia Jul 08 2013 8:57AM Muscle Spasm Jul 08 2013 8:57AM Chronic Obstructive Pulmonary Disease Jul 21 2013 9:49AM Tobacco use disorder Jul 21 2013 9:49AM Bronchitis, Acute Jul 21 2013 9:49AM Lumbar spondylosis Jul 28 2013 9:15AM Lumbar degenerative disc disease Jul 28 2013 9:15AM Lumbar Radiculitis Jul 28 2013 9:15AM Lumbago Jul 28 2013 9:15AM Cervicalgia Jul 28 2013 9:15AM Muscle Spasm Jul 28 2013 9:15AM Shortness Of Breath Sep 22 2013 9:25AM Chronic Obstructive Pulmonary Disease, Exacerbation Sep 22 2013 9:25AM Chronic Obstructive Pulmonary Disease Feb 2013 9:08AM Congestive Heart Failure Feb 2013 9:08AM Hypertension Feb 2013 9:08AM Diabetes Mellitus, Type II Oct 29 2013 9:08AM Gastroenteritis, Noninfectious b 2013 9:08AM Lumbar spondylosis Nov 25 2013 8:58AM Lumbar degenerative disc disease Nov 25 2013 8:58AM Lumbar Radiculitis Nov 25 2013 8:58AM Lumbago Nov 25 2013 8:58AM Cervicalgia Nov 25 2013 8:58AM Muscle Spasm Nov 25 2013 8:58AM Pneumonia Dec 08 2013 3:34PM Diabetes Mellitus, Type II Dec 18 2013 9:56AM Hypertension Dec 18 2013 9:56AM Hyperlipidemia, unspecified Dec 18 2013 9:56AM Screening For Prostate Cancer Dec 18 2013 9:56AM Dysuria Dec 18 2013 9:56AM Chronic Obstructive Pulmonary Disease Dec 18 2013 9:56AM Congestive Heart Failure Dec 18 2013 9:56AM Lumbar spondylosis Dec 23 2013 10:07AM Lumbar degenerative disc disease Dec 23 2013 10:07AM Lumbar Radiculitis Dec 23 2013 10:07AM Lumbago Dec 23 2013 10:07AM Cervicalgia Dec 23 2013 10:07AM Muscle Spasm Dec 23 2013 10:07AM SI joint pain Dec 23 2013 11:25AM Congestive Heart Failure Dec 23 2013 11:25AM Hypertension Dec 23 2013 11:25AM Lumbago Dec 23 2013 11:25AM Diabetes Mellitus, Type II Dec 23 2013 11:25AM Bronchitis, Acute Jan 05 2014 1:45PM Lumbar spondylosis Feb 24 2014 1:16PM Lumbar degenerative disc disease Feb 24 2014 1:16PM Lumbar Radiculitis Feb 24 2014 1:16PM Lumbago Feb 24 2014 1:16PM Cervicalgia Feb 24 2014 1:16PM Muscle Spasm Feb 24 2014 1:16PM Lumbar spondylosis Mar 24 2014 2:24PM Lumbar degenerative disc disease Mar 24 2014 2:24PM Lumbar Radiculitis Mar 24 2014 2:24PM Lumbago Mar 24 2014 2:24PM Cervicalgia Mar 24 2014 2:24PM Muscle Spasm Mar 24 2014 2:24PM Pain in joint; Knee,right Mar 24 2014 2:24PM Lumbar spondylosis Apr 26 2014 2:35PM Lumbar degenerative disc disease Apr 26 2014 2:35PM Lumbar Radiculitis Apr 26 2014 2:35PM Lumbago Apr 26 2014 2:35PM Cervicalgia Apr 26 2014 2:35PM Muscle Spasm Apr 26 2014 2:35PM Pain in joint; Knee,right Apr 26 2014 2:35PM Cervical radiculopathy Apr 26 2014 2:35PM Right Osteoarthritis, knee May 05 2014 11:21AM Chronic Right Pain, knee May 05 2014 11:21AM Chronic Obstructive Pulmonary Disease May 06 2014 11:39AM Congestive Heart Failure May 06 2014 11:39AM Hypercholesterolemia May 06 2014 11:39AM Diabetes Mellitus, Type II May 06 2014 11:39AM Benign essential hypertension May 06 2014 11:39AM Essential Hypertension May 14 2014 9:41AM Congestive Heart Failure May 14 2014 9:41AM Gastroesophageal Reflux May 14 2014 9:41AM Diabetes Mellitus, Type II, Uncontrolled May 14 2014 9:41AM Hyperlipidemia, Mixed May 14 2014 9:41AM Low Back Pain May 14 2014 9:41AM Chronic Obstructive Pulmonary Disease May 14 2014 9:41AM Gout May 14 2014 9:41AM Tobacco abuse May 20 2014 9:48AM Hemoptysis May 20 2014 9:48AM Depression May 20 2014 9:48AM Lumbar spondylosis Jun 21 2014 10:06AM Lumbar degenerative disc disease Jun 21 2014 10:06AM Lumbar Radiculitis Jun 21 2014 10:06AM Lumbago Jun 21 2014 10:06AM Cervicalgia Jun 21 2014 10:06AM Muscle Spasm Jun 21 2014 10:06AM Pain in joint; Knee,right Jun 21 2014 10:06AM Cervical radiculopathy Jun 21 2014 10:06AM Flu Jul 14 2014 11:01AM Lumbar spondylosis Jul 19 2014 10:27AM Lumbar degenerative disc disease Jul 19 2014 10:27AM Lumbar Radiculitis Jul 19 2014 10:27AM Lumbago Jul 19 2014 10:27AM Cervicalgia Jul 19 2014 10:27AM Muscle Spasm Jul 19 2014 10:27AM Pain in joint; Knee,right Jul 19 2014 10:27AM Cervical radiculopathy Jul 19 2014 10:27AM Lumbar spinal stenosis Aug 16 2014 11:07AM Chronic pain syndrome Aug 16 2014 11:07AM Right flank pain Jul 14 2014 9:31AM Musculoskeletal pain Jul 14 2014 9:31AM Chronic obstructive lung disease Sep 07 2014 8:58AM Lumbar spondylosis Sep 14 2014 10:04AM Lumbar degenerative disc disease Sep 14 2014 10:04AM Lumbar Radiculitis Sep 14 2014 10:04AM Lumbago Sep 14 2014 10:04AM Cervicalgia Sep 14 2014 10:04AM Muscle Spasm Sep 14 2014 10:04AM Pain in joint; Knee,right Sep 14 2014 10:04AM Cervical radiculopathy Sep 14 2014 10:04AM Shoulder pain, left Sep 14 2014 10:04AM Fall Oct 14 2014 2:06PM Sacroiliac pain Oct 14 2014 2:06PM Acute Chronic Lumbar back pain - secondary to fall Oct 14 2014 2:06PM Pharyngitis, Acute Nov 11 2014 8:23AM Upper respiratory infection Nov 11 2014 8:23AM Lumbar spondylosis Nov 11 2014 2:04PM Lumbar degenerative disc disease Nov 11 2014 2:04PM Lumbar Radiculitis Nov 11 2014 2:04PM Cervicalgia Nov 11 2014 2:04PM Muscle Spasm Nov 11 2014 2:04PM Pain in joint; Knee,right Nov 11 2014 2:04PM Cervical radiculopathy Nov 11 2014 2:04PM Myofascial pain Nov 11 2014 2:47PM Cervical Spinal stenosis Nov 11 2014 2:47PM Chronic pain syndrome Dec 07 2014 11:14AM Personal History: Lung Cancer Dec 08 2014 11:06AM 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 Dec 08 2014 8:47AM Lumbar spondylosis Oct 14 2014 2:06PM Lumbar degenerative disc disease Oct 14 2014 2:06PM Lumbar Radiculitis Oct 14 2014 2:06PM Lumbago Oct 14 2014 2:06PM Cervicalgia Oct 14 2014 2:06PM Muscle Spasm Oct 14 2014 2:06PM Pain in joint; Knee,right Oct 14 2014 2:06PM Cervical radiculopathy Oct 14 2014 2:06PM Shoulder pain, left Oct 14 2014 2:06PM Essential Hypertension Jan 13 2015 1:41PM Gastroesophageal Reflux Jan 13 2015 1:41PM Lung cancer Jan 13 2015 1:41PM Lumbar spondylosis Jan 12 2015 9:23AM Lumbar degenerative disc disease Jan 12 2015 9:23AM Lumbar Radiculitis Jan 12 2015 9:23AM Cervicalgia Jan 12 2015 9:23AM Muscle Spasm Jan 12 2015 9:23AM Pain in joint; Knee,right Jan 12 2015 9:23AM Cervical radiculopathy Jan 12 2015 9:23AM Lumbar spondylosis Jan 19 2015 3:54PM Lumbar degenerative disc disease Jan 19 2015 3:54PM Lumbar Radiculitis Jan 19 2015 3:54PM Cervicalgia Jan 19 2015 3:54PM Muscle Spasm Jan 19 2015 3:54PM Pain in joint; Knee,right Jan 19 2015 3:54PM Cervical radiculopathy Jan 19 2015 3:54PM Lumbar spondylosis Feb 17 2015 1:07PM Lumbar degenerative disc disease Feb 17 2015 1:07PM Lumbar Radiculitis Feb 17 2015 1:07PM Cervicalgia Feb 17 2015 1:07PM Muscle Spasm Feb 17 2015 1:07PM Pain in joint; Knee,right Feb 17 2015 1:07PM Cervical radiculopathy Feb 17 2015 1:07PM Essential Hypertension Feb 17 2015 1:41PM Lung cancer Feb 17 2015 1:41PM Insomnia Feb 28 2015 4:21PM Herpes Zoster Feb 28 2015 4:21PM Pleurisy Feb 28 2015 4:21PM Lumbar spondylosis Mar 15 2015 10:06AM Lumbar degenerative disc disease Mar 15 2015 10:06AM Lumbar Radiculitis Mar 15 2015 10:06AM Cervicalgia Mar 15 2015 10:06AM Muscle Spasm Mar 15 2015 10:06AM Pain in joint; Knee,right Mar 15 2015 10:06AM Cervical radiculopathy Mar 15 2015 10:06AM Lumbar spondylosis Mar 29 2015 10:18AM Lumbar degenerative disc disease Mar 29 2015 10:18AM Lumbar Radiculitis Mar 29 2015 10:18AM Cervicalgia Mar 29 2015 10:18AM Muscle Spasm Mar 29 2015 10:18AM Pain in joint; Knee,right Mar 29 2015 10:18AM Cervical radiculopathy Mar 29 2015 10:18AM Essential Hypertension Mar 28 2015 9:31AM Lung cancer Mar 28 2015 9:31AM Dermatitis Mar 28 2015 9:31AM Diabetes Mellitus, Type II Mar 28 2015 9:31AM Epistaxis Apr 08 2015 8:03AM Hemoptysis Apr 08 2015 8:03AM Lumbar spondylosis Apr 26 2015 11:03AM Lumbar degenerative disc disease Apr 26 2015 11:03AM Lumbar Radiculitis Apr 26 2015 11:03AM Cervicalgia Apr 26 2015 11:03AM Muscle Spasm Apr 26 2015 11:03AM Pain in joint; Knee,right Apr 26 2015 11:03AM Cervical radiculopathy Apr 26 2015 11:03AM Renal insufficiency May 09 2015 9:44AM Diabetes Mellitus, Type II May 09 2015 9:44AM Lung cancer May 09 2015 9:44AM Peripheral neuropathy May 09 2015 9:44AM Abdominal Pain, RUQ May 16 2015 9:32AM Lumbar spondylosis May 16 2015 1:13PM Lumbar degenerative disc disease May 16 2015 1:13PM Lumbar Radiculitis May 16 2015 1:13PM Cervicalgia May 16 2015 1:13PM Muscle Spasm May 16 2015 1:13PM Pain in joint; Knee,right May 16 2015 1:13PM Cervical radiculopathy May 16 2015 1:13PM Neuropathy May 16 2015 9:32AM Bilateral foot pain May 16 2015 9:32AM Bilateral foot pain May 16 2015 9:32AM Bronchitis, Acute Jun 02 2015 10:53AM Left shoulder pain Jun 20 2015 2:14PM Left elbow pain Jun 20 2015 2:14PM Lumbar spondylosis Jul 06 2015 2:42PM Lumbar degenerative disc disease Jul 06 2015 2:42PM Lumbar Radiculitis Jul 06 2015 2:42PM Muscle Spasm Jul 06 2015 2:42PM Chronic Pain in joint; Knee,right Jul 06 2015 2:42PM Cervical radiculopathy Jul 06 2015 2:42PM Acute bronchitis, unspecified organism Jun 27 2015 1:39PM Left shoulder pain Jun 27 2015 1:39PM Cervical spondylosis without myelopathy Jul 06 2015 2:42PM Pain in joint; shoulder region, Left Jul 06 2015 2:42PM Lumbar spondylosis Jun 15 2015 3:59PM Lumbar degenerative disc disease Jun 15 2015 3:59PM Lumbar Radiculitis Jun 15 2015 3:59PM Cervicalgia Jun 15 2015 3:59PM Muscle Spasm Jun 15 2015 3:59PM Pain in joint; Knee,right Jun 15 2015 3:59PM Cervical radiculopathy Jun 15 2015 3:59PM Moderate Shoulder pain, left Jul 11 2015 1:17PM Chronic Left Shoulder arthritis Jul 11 2015 1:17PM Lumbar spondylosis Aug 05 2015 9:02AM Lumbar degenerative disc disease Aug 05 2015 9:02AM Lumbar Radiculitis Aug 05 2015 9:02AM Muscle Spasm Aug 05 2015 9:02AM Chronic Pain in joint; Knee,right Aug 05 2015 9:02AM Cervical radiculopathy Aug 05 2015 9:02AM Cervical spondylosis without myelopathy Aug 05 2015 9:02AM Pain in joint; shoulder region, Left Aug 05 2015 9:02AM Lumbar spondylosis Aug 05 2015 9:02AM Muscle Spasm Aug 05 2015 9:02AM Chronic Pain in joint; Knee,right Aug 05 2015 9:02AM Cervical radiculopathy Aug 05 2015 9:02AM Cervical spondylosis without myelopathy Aug 05 2015 9:02AM Pain in joint; shoulder region, Left Aug 05 2015 9:02AM Chronic pain syndrome Aug 25 2015 10:00AM Lumbar radiculopathy Aug 05 2015 9:02AM Acute bronchitis, unspecified organism Aug 23 2015 9:53AM Lumbar spondylosis Sep 07 2015 8:34AM Muscle Spasm Sep 07 2015 8:34AM Chronic Pain in joint; Knee,right Sep 07 2015 8:34AM Cervical radiculopathy Sep 07 2015 8:34AM Cervical spondylosis without myelopathy Sep 07 2015 8:34AM Pain in joint; shoulder region, Left Sep 07 2015 8:34AM Lumbar radiculopathy Sep 07 2015 8:34AM Dysuria Sep 07 2015 8:34AM Fatigue Sep 07 2015 8:34AM Chronic neck pain Sep 26 2015 10:32AM Left shoulder pain Sep 26 2015 10:32AM Bronchiolitis, Viral Oct 17 2015 2:41PM Chronic left shoulder pain Nov 21 2015 10:39AM Acute bronchitis, unspecified organism Nov 21 2015 10:39AM Edema, unspecified type Dec 20 2015 1:45PM Gastroesophageal reflux disease without esophagitis Jan 19 2016 9:42AM Cervical spinal stenosis Jan 19 2016 9:42AM Chronic left shoulder pain Jan 19 2016 9:42AM Chronic left shoulder pain Feb 17 2016 9:58AM Benign essential hypertension Apr 11 2016 8:23AM Hypercholesterolemia Apr 11 2016 8:23AM Diabetes Mellitus, Type II Apr 11 2016 8:23AM Fatigue, unspecified type Apr 11 2016 8:23AM 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, right Apr 11 2016 8:23AM Chronic Obstructive Pulmonary Disease Apr 11 2016 8:23AM Nocturia associated with benign prostatic hypertrophy Apr 11 2016 8:23AM Rhinitis, Allergic May 03 2016 2:39PM Chronic left shoulder pain May 03 2016 2:39PM Chronic left shoulder pain May 10 2016 11:27AM Chronic left shoulder pain Jun 07 2016 9:29AM Hemoptysis Jun 07 2016 9:29AM Benign essential hypertension Jul 09 2016 9:55AM 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 Jul 09 2016 9:55AM Chronic Obstructive Pulmonary Disease Jul 09 2016 9:55AM Left shoulder pain Jul 09 2016 9:55AM Need for Prevnar vaccine Jul 09 2016 9:55AM Allergic bronchitis Aug 08 2016 10:17AM Bronchitis, Acute Aug 28 2016 8:10AM Pneumonia of right upper lobe due to infectious organism Sep 26 2016 8:48AM Congestive Heart Failure Oct 10 2016 10:07AM Diabetes Mellitus, Type II Oct 10 2016 10:07AM Chronic Obstructive Pulmonary Disease Oct 10 2016 10:07AM Benign essential hypertension Oct 10 2016 10:07AM Hypercholesterolemia Oct 10 2016 10:07AM Lumbar spinal stenosis Oct 23 2016 2:28PM Dysuria Nov 01 2016 1:56PM Dysuria Nov 05 2016 10:24AM Lumbago Nov 05 2016 10:24AM Diabetes Mellitus, Type II Nov 20 2016 10:29AM Need for hepatitis C screening test Nov 20 2016 10:29AM Benign essential hypertension Nov 20 2016 10:29AM Cervical spinal stenosis Nov 20 2016 10:29AM Lumbago Nov 20 2016 10:29AM Acute non-recurrent maxillary sinusitis Dec 21 2016 8:11AM Neuropathy Dec 21 2016 8:11AM Cervical spinal stenosis Dec 21 2016 8:11AM Lumbago Dec 21 2016 8:11AM Benign essential hypertension Jan 09 2017 8:39AM Chronic Obstructive Pulmonary Disease Jan 09 2017 8:39AM Congestive Heart Failure Jan 09 2017 8:39AM Hypertension Jan 09 2017 8:39AM Diabetes Mellitus, Type II Jan 09 2017 8:39AM Malignant neoplasm of upper lobe of right lung Jan 09 2017 8:39AM Benign essential hypertension Feb 05 2017 1:43PM Cervical spinal stenosis Feb 05 2017 1:43PM 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, left Feb 05 2017 1:43PM Chronic Obstructive Pulmonary Disease Feb 05 2017 1:43PM Congestive Heart Failure Feb 05 2017 1:43PM Benign essential hypertension Feb 22 2017 9:49AM Diabetes Mellitus, Type II Feb 22 2017 9:49AM Anemia Feb 22 2017 9:49AM Migraine without aura and without status migrainosus, not intractable Mar 11 2017 9:14AM 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, right Mar 11 2017 9:14AM Congestive Heart Failure Mar 28 2017 1:34PM Carcinoma in situ of bronchus of right lung Mar 28 2017 1:34PM Benign essential hypertension Apr 03 2017 8:17AM 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, right Apr 03 2017 8:17AM Chronic Obstructive Pulmonary Disease Apr 03 2017 8:17AM Abdominal pain Jun 06 2017 10:08AM Benign essential hypertension Jun 06 2017 10:08AM Congestive Heart Failure Jun 06 2017 10:08AM Diabetes Mellitus, Type II Jun 06 2017 10:08AM Chronic Obstructive Pulmonary Disease Jun 06 2017 10:08AM Cervical spinal stenosis Jun 06 2017 10:08AM Lumbago Jun 06 2017 10:08AM Nausea and vomiting Jul 22 2017 3:13PM Acute bronchitis Aug 27 2017 3:26PM Acute bronchitis Oct 22 2017 9:28AM Payers Insurance Name Company Name Plan Name Plan Number Policy Number Policy Group Number Start Date Medicare RHC Medicare RHC [id number] N[place] [employer] [place] [employer] [place] [id number] N/A [employer] [place] [employer] [place] [employer] [place] [phone] N/A [place] Medical Assistance [facility] Medical Assistance Prog [id number] N/A Medicare Part B Medicare Of [place] [id number] Friday, 2008 Medicare Part A Medicare Part A [id number] N/A [facility] - RHC - Community Plan [facility] RHC Comm [id number] Wednesday, 2015 [employer] - [place] [employer] [place] [id number] Wednesday, 2015 Medicare Part A Medicare - Lab/Xray [id number] N/A History of Encounters Visit Date Visit Type Provider 10/22/2017 Office visit Melecio Wilkinson DO 08/27/2017 Office visit Melecio Wilkinson DO 07/22/2017 Office visit Melecio Wilkinson DO 06/06/2017 Office visit Melecio Wilkinson DO 04/03/2017 Office visit Melecio Wilkinson DO 04/01/2017 Hospital Ama Barrios MD 03/28/2017 Office visit Melecio Wilkinson DO 03/11/2017 Office visit Melecio Wilkinson DO 03/05/2017 [facility] Ama Barrios MD 02/22/2017 Office visit Melecio Wilkinson DO 02/05/2017 Office visit Melecio Wilkinson DO 2017 [facility] Rasta Mckeon MD 2017 [facility] Ama Barrios MD 01/09/2017 Office visit Melecio Wilkinson DO 01/01/2017 [facility] Seth Devlin DO 12/31/2016 [facility] Rasta Mckeon MD 12/31/2016 [facility] Ama Barrios MD 12/21/2016 Office visit Melecio Wilkinson DO 11/20/2016 Office visit Melecio Cruzte DO 11/05/2016 Office visit Melecio Jaja DO 10/23/2016 Office visit Melecio Jaja DO 10/10/2016 Office visit Melecio Jaja DO 09/26/2016 Office visit Melecio Jaja DO 08/28/2016 Office visit Melecio Jaja DO 08/08/2016 Office visit Melecio Jaja DO 07/09/2016 Office visit Melecio Jaja DO 07/06/2016 Hospital Ama Barrios MD 07/06/2016 Hospital David Paul MD 07/05/2016 Surgery Ama Barrios MD 07/03/2016 Laboratory Ama Barrios MD 06/07/2016 Office visit Melecio Cruzte DO 05/03/2016 Office visit Melecio Jaja DO 04/11/2016 Office visit Melecio Cruzte DO 02/17/2016 Office visit Melecio Jaja DO 01/19/2016 Office visit Melecio Jaja DO 12/20/2015 Office visit Melecio Jaja DO 11/21/2015 Office visit Melecio Cruzte DO 10/17/2015 Office visit Melecio Cruzte DO 09/26/2015 Office visit Melecio Jaja DO 09/07/2015 Office visit Ktaty CRAIG 08/25/2015 Nurse visit Katty CRAIG 08/23/2015 Office visit Melecio Jaja DO 08/08/2015 Office visit Melecio Jaja DO 08/05/2015 Office visit Katty CRAIG 07/11/2015 Office visit Katty CRAIG 07/06/2015 Office visit Katty CRAIG 06/27/2015 Office visit Melecio Jaja DO 06/20/2015 Office visit Melecio Jaja DO 06/15/2015 Office visit Katty CRAIG 06/02/2015 Office visit Melecio Jaja DO 05/16/2015 Office visit Katty CRAIG 05/16/2015 Office visit 05/16/2015 Office visit Melecio Jaja DO 05/09/2015 Office visit Melecio Jaja DO 04/26/2015 Office visit Katty CRAIG 04/08/2015 Office visit Melecio Jaja DO 04/07/2015 Voided Melecio Jaja DO 03/29/2015 Office visit Katty CRAIG 03/28/2015 Office visit Melecio Jaja DO 03/15/2015 Office visit Katty CRAIG 02/28/2015 Office visit Melecio Jaja DO 02/17/2015 Office visit Melecio Jaja DO 02/17/2015 Office visit Katty CRAIG 01/19/2015 Office visit Katty CRAIG 01/13/2015 Office visit Melecio Jaja DO 01/12/2015 Office visit Katty CRAIG 12/16/2014 [facility] Alfa Platt MD 12/14/2014 Voided Melecio Jaja DO 12/08/2014 Office visit Alfa Platt MD 12/08/2014 Office visit Melecio Jaja DO 12/07/2014 Nurse visit Riri Salazar MD 12/02/2014 [facility]fa [facility]att [facility] Gio STRONG 11/29/2014 Voided Katty CRAIG 11/11/2014 Office visit 11/11/2014 Office visit Katty CRAIG 11/11/2014 Office visit Melecio Willhite DO 10/14/2014 Office visit Katty CRAIG 09/14/2014 Office visit Katty CRAIG 09/08/2014 [facility] Ama Barrios MD 09/07/2014 Office visit Melecio Jaja DO 08/16/2014 Nurse visit Katty CRAIG 07/19/2014 Office visit Katty CRAIG 07/14/2014 Office visit Melecio Jaja DO 06/21/2014 Office visit Katty CRAIG 05/20/2014 Office visit Melecio Jaja DO 05/14/2014 Office visit Melecio Jaja DO 05/05/2014 Office visit Katty CRAIG 04/26/2014 Office visit Katty CRAIG 03/24/2014 Office visit Katty CRAIG 02/24/2014 Office visit Katty CRAIG 01/05/2014 Office visit Melecio Wilkinson DO 12/23/2013 Office visit Katty CRAIG 12/23/2013 Office visit Melecio Jaja DO 12/18/2013 Office visit Janis Navarrete ELECTROMECHANICAL INSPECTOR 12/08/2013 Office visit Janis Navarrete ELECTROMECHANICAL INSPECTOR 11/25/2013 Office visit Katty Jefferson ADVERTISING SALES ASSOCIATE 10/29/2013 Office visit Melecio Wilkinson DO 09/22/2013 Office visit Janis Navarrete ELECTROMECHANICAL INSPECTOR 07/28/2013 Office visit Katty Jefferson ADVERTISING SALES ASSOCIATE 07/21/2013 Office visit Melecio Wilkinson DO 07/08/2013 Office visit Katty [place] DURÁNP 05/06/2013 Office visit Melecio Wilkinson DO 04/07/2013 Office visit Gorge Yo MD 02/26/2013 Office visit Melecio Wilkinson DO 01/29/2013 Office visit Gorge Yo MD 01/06/2013 Office visit Gorge Yo MD 12/09/2012 [facility] Ama Barrios MD 12/09/2012 Office visit Stephanie Richardson ELECTROMECHANICAL INSPECTOR 11/26/2012 Office visit Gorge Yo MD 10/30/2012 [facility] Gorge Yo MD 10/29/2012 Office visit Gorge Yo MD 10/09/2012 Office visit Melecio Wilkinson DO 08/19/2012 Office visit Melecio Wilkinson DO 08/04/2012 Office visit Melecio Wilkinson DO 07/24/2012 Office visit Gorge Yo MD 07/16/2012 Office visit Melecio Wilkinson DO 06/12/2012 Office visit Gorge Yo MD 06/05/2012 Office visit Gorge Yo MD 05/29/2012 Office visit Gorge Yo MD 05/19/2012 Office visit Melecio Wilkinson DO 05/14/2012 Office visit Gorge Yo MD 05/12/2012 [facility] DO 05/11/2012 [facility] DO 03/13/2012 Office visit Gorge Yo MD 02/05/2012 Office visit Melecio Wilkinson DO 01/31/2012 Office visit Gorge Yo MD 01/16/2012 Office visit Gorge Yo MD 01/01/2012 Office visit Melecio Wilkinson DO 11/16/2011 Office visit Gorge Yo MD 10/05/2011 Office visit Gorge Yo MD 10/01/2011 Office visit Janis Navarrete ELECTROMECHANICAL INSPECTOR 09/06/2011 Office visit Gorge Yo MD 07/26/2011 Office visit Melecio Wilkinson DO 06/19/2011 Office visit Gorge Yo MD 06/06/2011 Office visit Gorge Yo MD 03/22/2011 Office visit Gorge Yo MD 03/05/2011 Office visit Melecio Wilkinson DO 02/06/2011 Hospital Gorge Yo MD 01/08/2011 Office visit Melecio Wilkinson DO 12/27/2010 Office visit Gorge Yo MD 11/29/2010 Office visit Gorge Yo MD 11/07/2010 Office visit Melecio Wilkinson DO 09/28/2010 Office visit Gorge Yo MD 09/05/2010 [facility] Gorge Yo MD 08/28/2010 Office visit Gorge Yo MD 08/07/2010 Office visit Janis Navarrete ELECTROMECHANICAL INSPECTOR 07/25/2010 Office visit Melecio Wilkinson DO 06/27/2010 Office visit Gorge Yo MD 06/14/2010 Office visit Melecio iWlkinson DO 06/06/2010 Laboratory Alfonso Camacho MD 06/01/2010 Office visit Melecio Wilkinson DO 04/17/2010 Office visit Melecio Wilkinson DO 04/06/2010 Office visit Gorge Yo MD 04/02/2010 Hospital Alfonso Camacho MD 03/31/2010 Laboratory Alfonso Camacho MD 03/31/2010 Laboratory Alfonso Camacho MD 03/31/2010 Hospital Alfonso Camacho MD 03/21/2010 Procedures Gorge Yo MD 03/16/2010 Office visit Gorge Yo MD 03/15/2010 Office visit Melecio Wilkinson DO 02/23/2010 Office visit Gorge Yo MD 02/08/2010 Office visit Gorge Yo MD 12/28/2009 Office visit Gorge Yo MD 12/21/2009 Office visit Melecio Wilkinson DO 12/14/2009 Office visit Gorge Yo MD 12/06/2009 Office visit Latonia Ibarra MD 11/03/2009 Office visit Melecio Wilkinson DO 10/01/2009 Laboratory Gill Maurice MD 09/08/2009 Office visit Gorge Yo MD 08/25/2009 Procedures Gorge Yo MD 08/23/2009 Office visit Gorge Yo MD 07/06/2009 Laboratory Vamshi Aguero MD 06/27/2009 Office visit Gorge Yo MD 06/17/2009 Office visit Vamshi Aguero MD 05/24/2009 Office visit Gorge Yo MD
--- OUTSIDE RECORDS SUMMARY | 2018-01-22 10:17 | XMS REPORT ---
Author Author Melecio Wilkinson [facility] Address [address] [place] [phone] Care Team Providers Care Philosophy Professor Name Role Phone Melecio Wilkinson PCP Unavailable Allergies and Adverse Reactions Name Reaction Notes NO KNOWN DRUG ALLERGIES Plan of Treatment Planned Activity Comments Planned Date Planned Time Plan/Goal AIRWAY INHALATION TREATMENT 01/01/2012 12:00 AM ELECTROCARDIOGRAM COMPLETE 12/09/2012 12:[address] ABD & PELV W/CONTRAST 05/16/2015 12:00 AM LOWER EXTREMITY STUDY 05/16/2015 12:00 AM LOWER EXTREMITY STUDY 05/16/2015 12:00 AM Medications Active Name Start Date Estimated Completion Date SIG Comments hydralazine 50 mg oral tablet take 1 tablet (50 mg) by oral route 3 times per day with food Dr. Patterson niacin 500 mg oral tablet take 1 tablet (500 mg) by oral route once daily Xarelto Oral one tablet by oral route once daily Symbicort 160-4.5 mcg/actuation inhalation HFA aerosol inhaler 09/23/2013 INHALE 2 PUFFS BY MOUTH 2 TIMES PER DAY MORNING AND EVENING lisinopril 10 mg oral tablet 10/13/2013 TAKE 1 TABLET BY MOUTH EVERY DAY FOR BLOOD PRESSURE diphenhydramine HCl 50 mg oral capsule 11/12/2013 TAKE 1 CAPSULE BY MOUTH EVERY SIX HOURS NEEDED Lovaza 1 gram oral capsule 11/12/2013 TAKE 2 CAPSULES (2 GRAM) BY ORAL ROUTE 2 TIMES PER DAY FOR 30 DAYS digoxin 125 mcg oral tablet 11/20/2013 TAKE [...] TABLET BY MOUTH THREE TIMES DAILY NEEDED furosemide 20 mg oral tablet 06/08/2014 take 1 unspecified by oral route daily allopurinol 300 mg oral tablet 08/02/2014 TAKE [...] DAYS clonidine HCl 0.2 mg oral tablet 12/23/2014 TAKE ONE TABLET BY MOUTH THREE TIMES DAILY NEEDED allopurinol 300 mg oral tablet 02/21/2015 TAKE 1 TABLET BY MOUTH ONCE DAILY digoxin 125 mcg oral tablet 02/21/2015 TAKE 1 TABLET BY MOUTH EVERY DAY cimetidine 200 mg oral tablet 03/02/2015 take 1 tablet (200 mg) by oral route once daily 30 minutes before meals betamethasone dipropionate 0.05 % topical lotion 03/28/2015 apply a few drops to the affected area(s) by topical route 2 times per day and massage lightly until it disappears cimetidine 200 mg oral tablet 03/29/2015 TAKE 1 TABLET BY MOUTH EVERY DAY 30 MINUTES BEFORE A MEAL allopurinol 100 mg oral tablet take 1.5 tablets by oral route daily ondansetron 8 mg oral tablet,disintegrating take 1 tablet (8 mg) and place on top of the tongue where it will dissolve, then swallow by oral route every 8 hours cimetidine 200 mg oral tablet 04/28/2015 TAKE 1 TABLET BY MOUTH EVERY DAY 30 MINUTES BEFORE A MEAL sodium bicarbonate 325 mg oral tablet take 0.5 tablet by oral route 2 times a day atorvastatin 40 mg oral tablet take 1 tablet (40 mg) by oral route once daily Vitamin D3 1,000 unit oral capsule take 1 capsule by oral route carvedilol 25 mg oral tablet 06/14/2015 06/08/2016 take 1 tablet (25 mg) by oral route 2 times per day with food for 90 days midodrine 5 mg oral tablet 06/27/2015 take 1 tablet (5 mg) by oral route 2 times per day omeprazole 40 mg oral capsule,delayed release(DR/EC) 06/27/2015 take 1 capsule by oral route 2 times a day Carafate 1 gram oral tablet take 1 tablet (1 gram) by oral route 4 times per day on an empty stomach 1 hour before meals and at bedtime midodrine 5 mg oral tablet 07/20/2015 TAKE 1 TABLET BY MOUTH TWICE DAILY methocarbamol 750 mg oral tablet 08/17/2015 take 1 tablet by oral route every 6 hours as needed for 30 days digoxin 125 mcg oral tablet 08/17/2015 TAKE 1 TABLET BY MOUTH EVERY DAY lisinopril 20 mg oral tablet 08/17/2015 TAKE 1 TABLET BY MOUTH DAILY Lyrica 50 mg oral capsule 08/29/2015 11/27/2015 take 1 capsule by oral route 2 times a day for 30 days loratadine 10 mg oral tablet 09/14/2015 TAKE 1 TABLET BY MOUTH EVERY DAY - GEN CLARITIN- zolpidem 10 mg oral tablet 09/14/2015 11/13/2015 take 1 tablet (10 mg) by oral route once daily at bedtime for 30 days tamsulosin 0.4 mg oral capsule,extended release 24hr 09/14/2015 09/08/2016 TAKE 1 CAPSULE BY MOUTH EVERY DAY oxycodone 20 mg oral tablet 09/24/2015 10/24/2015 take 1 tablet by oral route every 4 to 6 hours for 30 days pain cimetidine 200 mg oral tablet 10/13/2015 TAKE 1 TABLET BY MOUTH EVERY DAY 30 MINUTES BEFORE A MEAL Name Start Date Expiration Date SIG Comments [...] Take 1 by mouth once a day albuterol sulfate 2.5 mg /3 mL (0.083 %) inhalation solution for nebulization 09/03/2012 09/03/2013 inhale 3 milliliters (2.5 mg) by nebulization route 4 times per day Levaquin 500 mg oral tablet 10/09/2012 10/16/2012 take 1 tablet (500 mg) by oral route once daily for 7 days amoxicillin-pot clavulanate 500-125 mg oral tablet 11/05/2012 11/12/2012 TAKE 1 TABLET BY ORAL ROUTE EVERY 12 HOURS FOR 7 DAYS loratadine 10 mg oral tablet 11/06/2012 12/06/2012 TAKE 1 TABLET BY MOUTH EVERY DAY -GEN CLARITIN- clonidine HCl 0.2 mg oral tablet 11/17/2012 12/17/2012 TAKE ONE TABLET BY MOUTH THREE TIMES DAILY NEEDED Lovaza 1 gram oral capsule 11/17/2012 12/17/2012 [...] then 1 tab PO x 3 days lisinopril 10 mg oral tablet 04/15/2013 05/15/2013 TAKE 1 TABLET BY MOUTH EVERY DAY FOR BLOOD PRESSURE simvastatin 20 mg oral tablet 06/25/2013 07/25/2013 [...] CAPSULE BY MOUTH EVERY SIX HOURS NEEDED furosemide 40 mg oral tablet 08/24/2013 11/22/2013 TAKE 1 TABLET BY MOUTH EVERY DAY -FOR FLUID- *GEN LASIX* allopurinol 300 mg oral tablet 08/24/2013 11/22/2013 TAKE 1 TABLET BY MOUTH ONCE DAILY carvedilol 12.5 mg oral tablet 08/24/2013 11/22/2013 TAKE 1 TABLET BY MOUTH TWO TIMES A DAY *GEN COREG* isosorbide mononitrate 30 mg oral tablet extended release 24 hr 08/24/201311/22 TAKE 1 TABLET BY MOUTH EVERY DAY *GEN IMDUR* digoxin 125 mcg oral tablet 08/25/2013 11/23/2013 [...] route every 12 hours for 5 days Levaquin 750 mg oral tablet 12/08/2013 12/15/2013 [...] 7 days Levaquin 500 mg oral tablet 06/27/2015 take 1 tablet (500 mg) by oral route once daily sulfamethoxazole-trimethoprim 800-160 mg oral tablet 07/29/2015 08/05/2015 take 1 tablet by oral route every 12 hours for 7 days Discontinued Name Start Date Discontinued Date [...] once daily for 30 days changed to Xalreto by Dr. Yesenia Cuevas 5 % topical adhesive patch,medicated 02/08/2010 08/04/2012 apply 2 patches by transdermal route once daily (May wear up to 12hours.) for 30 days Patch doesn't stay on Singulair 10 mg oral tablet 03/15/2010 05/14/2014 take 1 tablet (10 mg) by oral route once daily in the evening carvedilol 25 mg oral tablet 04/17/2010 06/14/2010 1 1/2 tabs BID amlodipine 10 mg oral tablet 05/11/2010 06/19/2010 take 1 tablet (10 mg) by oral route once daily for 30 days Discontinued by Hospitalist at [facility] Augmentin 875-125 mg oral tablet 11/07/2010 03/05/2011 [...] or tea by oral route once daily baclofen 10 mg oral tablet 02/26/2013 10/28/2013 take 1 tablet (10 mg) by oral route 3 times a day hydrocodone-acetaminophen 10-500 mg oral tablet 08/25/2013 11/23/2013 [...] ARAIZA INCREASED TO 25 mg po bid isosorbide mononitrate 30 mg oral tablet extended release 24 hr 02/21/20152014 TAKE 1 TABLET BY MOUTH EVERY DAY *GEN IMDUR* isosorbide mononitrate 30 mg oral tablet extended release 24 hr 02/21/20152014 TAKE 1 TABLET BY MOUTH EVERY DAY *GEN IMDUR* ON HOLD - DR ARAIZA triamcinolone acetonide 0.1 % topical cream [...] MOUTH DAILY ON HOLD - DR ARAIZA gabapentin 300 mg oral capsule 04/26/2015 05/16/2015 take 1 capsule by oral route 2 times a day for 30 days changed to Lyrica. 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 12/11/2014 Lung cancer Active 12/02/14 Vital Signs Date Time BP-Sys(mm[Hg] BP-Jaylin(mm[Hg]) HR(bpm) RR(rpm) Temp WT HT HC BMI BSA BMI Percentile O2 Sat(%) 10/17/2015 2:38:00 PM 188 mmHg 102 mmHg [...] 07/11/2015 12:00 AM Kenalog, Per 10 Mg [facility]#2925-7692-11 Reviewed 06/19/2011 12:00 AM DRAIN/INJ JOINT/BURSA W/O US Reviewed 06/19/2011 12:00 AM Kenalog 40 Mg [facility]#2405-2469-26 Reviewed 08/25/2015 12:00 AM OFFICE/OUTPATIENT VISIT EST Reviewed 08/23/2015 12:00 AM Decadron, Per 1 Mg [facility]# [address]-27 Reviewed 08/23/2015 12:00 AM Depo-Medrol, Per 80 Mg [facility]#[address]-15 Reviewed 09/07/2015 12:00 AM X-RAY EXAM L-S SPINE 2/3 VWS Returned 09/07/2015 12:00 AM COMPLETE CBC W/AUTO DIFF WBC Returned 09/07/2015 12:00 AM ASSAY THYROID STIM HORMONE Reviewed 09/07/2015 12:00 AM COMPREHEN METABOLIC PANEL Returned 09/07/2015 12:00 AM URNLS DIP STICK/TABLET RGNT AUTO W/O MICROSCOPY Returned 11/03/2009 12:00 AM PROTHROMBIN TIME Reviewed 07/26/2011 12:00 AM X-RAY EXAM OF ABDOMEN Reviewed 10/12/2011 12:00 AM EXTREMITY STUDY Reviewed 01/01/2012 12:00 AM Rocephin 1 gm [facility]#[address]-87 Reviewed 01/16/2012 12:00 AM DRAIN/INJ JOINT/BURSA W/O US Reviewed 01/16/2012 12:00 AM Kenalog per 10Mg [facility]#[address]-27(Srinath) Reviewed 02/05/2012 12:[address] ABDOMEN W/O & W/DYE Reviewed 02/05/2012 12:[address] PELVIS W/O & W/DYE Reviewed 05/29/2012 12:00 AM DRAIN/INJ JOINT/BURSA W/O US Reviewed 05/29/2012 12:00 AM SYNVISC, Per 1 Mg (2ml) [facility] [address]-89 Reviewed 06/05/2012 12:00 AM DRAIN/INJ JOINT/BURSA W/O US Reviewed 06/05/2012 12:00 AM SYNVISC, Per 1 Mg (2ml) [facility] [address]-43 Reviewed 06/12/2012 12:00 AM DRAIN/INJ JOINT/BURSA W/O US Reviewed 06/12/2012 12:00 AM SYNVISC, Per 1 Mg (2ml) [facility] [address]-24 Reviewed 07/16/2012 12:00 AM Hepatobiliary ductal system imaging with functional assessment Reviewed 07/16/2012 12:00 AM Decadron 8 mg [facility]#[id number] Reviewed 07/16/2012 12:00 AM Depo-Medrol 80mg [facility]#[id number] Reviewed 07/16/2012 12:00 AM COMPREHEN METABOLIC PANEL Reviewed 07/16/2012 12:00 AM LIPID PANEL Reviewed 07/16/2012 12:00 AM Flu Injection 3 Years And Above [facility]# [address]-45 RHC Reviewed 08/19/2012 12:00 AM METABOLIC PANEL TOTAL CA Reviewed 12/21/2009 12:[address] ABDOMEN W/O & W/DYE Reviewed 10/02/2012 12:00 AM CHEST X-RAY 2VW FRONTAL&LATL Reviewed 10/09/2012 12:00 AM Decadron 8 mg [facility]#[id number] Reviewed 10/09/2012 12:00 AM Depo-Medrol 80mg [facility]#[id number] Reviewed 12/09/2012 12:00 AM CHEST X-RAY 2VW FRONTAL&LATL Returned 12/09/2012 12:00 AM ASSAY OF TROPONIN QUANT Returned 12/09/2012 12:00 AM ASSAY OF MYOGLOBIN Returned 12/09/2012 12:00 AM FIBRIN DEGRADATION QUANT Returned 12/09/2012 12:00 AM CREATINE MB FRACTION Returned 12/09/2012 12:00 AM Cbc With Auto Differential % Returned 12/09/2012 12:00 AM COMPREHEN METABOLIC PANEL Returned 12/09/2012 12:00 AM ASSAY OF NATRIURETIC PEPTIDE Returned 01/29/2013 12:00 AM DRAIN/INJ JOINT/BURSA W/O US Reviewed 01/29/2013 12:00 AM SYNVISC-ONE, Per 1 Mg (6ml) [facility] [address]-16 Reviewed 02/26/2013 12:[address] NECK SPINE W/O & W/DYE Reviewed 04/07/2013 12:00 AM INJECT TRIGGER POINTS 3/> Reviewed 04/07/2013 12:00 AM Kenalog per 10Mg [facility]#[address]-21(Srinath) Reviewed 07/21/2013 12:00 AM CHEST X-RAY 2VW FRONTAL&LATL Reviewed 07/21/2013 12:00 AM Decadron 8 mg [facility]# [address]-82 Reviewed 07/21/2013 12:00 AM Depo-Medrol 80 mg [facility]#[address]-98 Reviewed 07/21/2013 12:00 AM Rocephin 500 mg [facility]#2898-4031-95 Reviewed 09/22/2013 12:00 AM CHEST X-RAY 2VW FRONTAL&LATL Returned 10/29/2013 12:00 AM X-RAY EXAM OF ABDOMEN Reviewed 12/08/2013 12:00 AM THER/PROPH/DIAG INJ SC/IM Reviewed 12/08/2013 12:00 AM Decadron, Per 1 Mg [facility]# [address]-65 Reviewed 12/08/2013 12:00 AM Depo-Medrol, Per 80 Mg [facility]#8738-9444-14 Reviewed 12/08/2013 12:00 AM CHEST X-RAY 2VW FRONTAL&LATL Returned 12/18/2013 12:00 AM COMPLETE CBC W/AUTO DIFF WBC Returned 12/18/2013 12:00 AM COMPREHEN METABOLIC PANEL Returned 12/18/2013 12:00 AM LIPID PANEL Returned 12/18/2013 12:00 AM GLYCOSYLATED HEMOGLOBIN TEST Returned 12/18/2013 12:00 AM MICROALBUMIN QUANTITATIVE Returned 12/18/2013 12:00 AM Prostate Cancer Screening PSA Returned 12/18/2013 12:00 AM URINE CULTURE/COLONY COUNT Returned 12/18/2013 12:00 AM ASSAY OF NATRIURETIC PEPTIDE Returned 12/23/2013 12:[address] LUMBAR SPINE W/O DYE Returned 01/05/2014 12:00 AM Decadron 8 mg [facility]# [address]-38 Reviewed 01/05/2014 12:00 AM Depo-Medrol 80 mg [facility]#[address]-23 Reviewed 01/05/2014 12:00 AM Rocephin 1 gram [facility]#0254-5273-20 Reviewed 03/15/2010 12:00 AM PROTHROMBIN TIME Reviewed [...] X-RAY EXAM OF KNEE 1 OR 2 Returned 09/28/2010 12:00 AM N BLOCK INJ INTERCOST SNG Reviewed 09/28/2010 12:00 AM Kenalog per 10Mg [facility]#[address]-80(Srinath) Reviewed 05/05/2014 12:00 AM DRAIN/INJ JOINT/BURSA W/O US Reviewed 05/05/2014 12:00 AM SYNVISC-ONE, Per 1 Mg (6ml) [facility] [address]-04 Reviewed 05/06/2014 12:00 AM COMPREHEN METABOLIC PANEL [...] Reviewed 11/07/2010 12:00 AM Rocephin 500 mg [facility]#[address]-80 Reviewed 07/14/2014 12:00 AM Fluzone MEDICARE Only Reviewed 11/29/2010 12:00 AM INJECT TRIGGER POINTS 3/> Reviewed 11/29/2010 12:00 AM Kenalog per 10Mg [facility]#[address]-74(Srinath) Reviewed 07/14/2014 12:00 AM Decadron injection Reviewed 07/14/2014 12:00 AM Depo-Medrol 40mg Reviewed 01/08/2011 12:00 AM X-RAY EXAM OF ABDOMEN Reviewed 10/14/2014 12:00 AM RADIOLOGIC EXAM SACROILIAC JOINTS 3/MORE VIEWS Returned 10/14/2014 12:00 AM X-RAY EXAM L-S SPINE 2/3 VWS Returned 03/05/2011 12:00 AM ECHO EXAM OF ABDOMEN Reviewed 03/12/2011 12:00 AM URINALYSIS AUTO W/O SCOPE Reviewed 03/05/2011 12:00 AM URINALYSIS AUTO W/O SCOPE Reviewed 05/09/2015 12:00 AM RENAL FUNCTION PANEL Reviewed Results Summary Data and Description Results 11/03/2009 3:21 PM PROTIME 30.80 secsINR 3.2 02/23/2010 10:10 AM GLUCOSE 179.0 mg/dLSODIUM 136.0 mmol/LPOTASSIUM 5.10 mmol/ LCHLORIDE 104.0 mmol/LCO2 21.0 mmol/LBUN 29.0 mg/dLCREATININE 1.50 mg/dLCALCIUM 9.30 mg/dLeGFR 49 03/15/2010 10:06 AM PROTIME 15.40 secsINR 1.4 06/01/2010 2:06 PM COLOR YELLOW APPEARANCE CLEAR SPEC GRAV >=1.030 pH 5.0 PROTEIN NEGATIVE GLUCOSE NEGATIVE KETONE NEGATIVE BILIRUBIN NEGATIVE BLOOD NEGATIVE NITRITE NEGATIVE LEUK SCREEN NEGATIVE CASTS/LPF NEGATIVE CRYSTALS NEGATIVE MUCOUS THRDS FEW BACTERIA FEW EPITH CELLS FEW SQUAMOUS TRICHOMONAS NEGATIVE YEAST NEGATIVE 06/12/2010 7:50 AM PROTIME 35.60 secsINR 3.2 GLUCOSE 131.0 mg/dLSODIUM 136.0 mmol/LPOTASSIUM 4.20 mmol/LCHLORIDE 105.0 mmol/LCO2 22.0 mmol/LBUN 17.0 mg/ dLCREATININE 1.30 mg/dLSGOT/AST 21.0 IU/LSGPT/ALT 22.0 IU/LALK PHOS 114.0 IU/ LTOTAL PROTEIN 7.20 g/dLALBUMIN 4.0 g/dLTOTAL BILI 0.20 mg/dLCALCIUM 9.30 mg/ dLeGFR 58 06/14/2010 10:19 AM GLUCOSE 122.0 mg/dLSODIUM 138.0 mmol/LPOTASSIUM 4.80 mmol/ LCHLORIDE 104.0 mmol/LCO2 24.0 mmol/LBUN 14.0 mg/dLCREATININE 1.10 mg/dLCALCIUM 9.50 mg/dLeGFR >60 mL/min/1.73 m2 08/07/2010 5:23 PM LIPASE 48.0 U/LGLUCOSE 106.0 mg/dLSODIUM 137.0 mmol/ LPOTASSIUM 4.30 mmol/LCHLORIDE 100.0 mmol/LCO2 27.0 mmol/LBUN 16.0 mg/ dLCREATININE 1.30 mg/dLSGOT/AST 20.0 IU/LSGPT/ALT 23.0 IU/LALK PHOS 104.0 IU/ LTOTAL PROTEIN 7.80 g/dLALBUMIN 4.50 g/dLTOTAL BILI 0.20 mg/dLCALCIUM 9.60 mg/ dLeGFR 58 WBC 10.3 RBC 5.02 HGB 13.90 g/dLHCT 42.40 %MCV 85.0 fLMCH 27.70 pgMCHC 32.80 g/dLRDW CV 15.70 %MPV 9.20 fLPLT 307 %NEUT 47.70 %%LYMP 42.50 %% MONO 6.30 %%EOS 3.10 %%BASO 0.40 %#NEUT 4.90 #LYMP 4.37 #MONO 0.65 #EOS 0.32 # BASO 0.04 11/07/2010 11:39 AM BNP < 10 PG/MLGLUCOSE 94.0 mg/dLSODIUM 139.0 mmol/ LPOTASSIUM 4.10 mmol/LCHLORIDE 103.0 mmol/LCO2 27.0 mmol/LBUN 11.0 mg/ dLCREATININE 1.20 mg/dLCALCIUM 9.50 mg/dLeGFR >60 mL/min/1.73 m2 07/16/2012 8:56 AM GLUCOSE 147.0 mg/dLSODIUM 138.0 mmol/LPOTASSIUM 4.30 mmol/ LCHLORIDE 103.0 mmol/LCO2 26.0 mmol/LBUN 17.0 mg/dLCREATININE 1.30 mg/dLSGOT/ AST 18.0 IU/LSGPT/ALT 22.0 IU/LALK PHOS 92.0 IU/LTOTAL PROTEIN 7.40 g/dLALBUMIN 4.20 g/dLTOTAL BILI 0.40 mg/dLCALCIUM 9.20 mg/dLeGFR 58 TRIGLYCERIDES 193.0 mg/ dLCHOLESTEROL 170.0 mg/dLHDL 28.0 mg/dLLDL (CALC) 103.0 mg/dL 08/19/2012 9:05 AM GLUCOSE 116.0 mg/dLSODIUM 138.0 mmol/LPOTASSIUM 3.70 mmol/ LCHLORIDE 101.0 mmol/LCO2 27.0 mmol/LBUN 28.0 mg/dLCREATININE 1.20 mg/dLCALCIUM 9.0 mg/dLeGFR 60 12/09/2012 11:00 AM WBC 10.8 RBC 5.02 HGB 14.80 g/dLHCT 45.0 %MCV 90.0 fLMCH 29.50 pgMCHC 32.90 g/dLRDW CV 16.0 %MPV 9.70 fLPLT 269 %NEUT 60.30 %%LYMP 31.0 % %MONO 5.80 %%EOS 2.70 %%BASO 0.20 %#NEUT 6.50 #LYMP 3.34 #MONO 0.62 #EOS 0.29 # BASO 0.02 D-DIMER QUANT 0.25 TROPONIN-I AD < 0.04 ng/mLBNP < 10 PG/MLGLUCOSE 156.0 mg/dLSODIUM 144.0 mmol/LPOTASSIUM 3.90 mmol/LCHLORIDE 102.0 mmol/LCO2 29.0 mmol/LBUN 14.0 mg/dLCREATININE 1.10 mg/dLSGOT/AST 22.0 IU/LSGPT/ ALT 19.0 IU/LALK PHOS 86.0 IU/LTOTAL PROTEIN 8.0 g/dLALBUMIN 4.0 g/dLTOTAL BILI 0.30 mg/dLCALCIUM 10.0 mg/dLeGFR 60 CPK 181 IU/L 12/21/2013 8:20 AM CREAT UR 230.20 mg/dLMICROALBUMIN UR 376.0 ug/mLALB:CREAT RATIO 163 WBC 14.9 RBC 5.15 HGB 15.0 g/dLHCT 45.90 %MCV 89.0 fLMCH 29.10 pgMCHC 32.70 g/dLRDW CV 15.60 %MPV 9.70 fLPLT 289 %NEUT 62.90 %%LYMP 28.30 %%MONO 6.90 %%EOS 1.60 %%BASO 0.30 %#NEUT 9.38 #LYMP 4.23 #MONO 1.03 #EOS 0.24 #BASO 0.05 EOS 1.0 %BNP <10 PG/MLCOLOR YELLOW APPEARANCE HAZY SPEC GRAV 1.020 pH 6.0 PROTEIN 100 GLUCOSE NEGATIVE KETONE NEGATIVE BILIRUBIN NEGATIVE BLOOD NEGATIVE NITRITE NEGATIVE LEUK SCREEN NEGATIVE CASTS/LPF NEGATIVE CRYSTALS NEGATIVE MUCOUS THRDS NEGATIVE BACTERIA FEW EPITH CELLS FEW SQUAMOUS TRICHOMONAS NEGATIVE YEAST NEGATIVE Est Avg Glucose 188.6 mg/dLTRIGLYCERIDES 210.0 mg/ dLCHOLESTEROL 213.0 mg/dLHDL 46.0 mg/dLLDL (CALC) 125.0 mg/dLGLUCOSE 187.0 mg/ dLSODIUM 136.0 mmol/LPOTASSIUM 4.40 mmol/LCHLORIDE 98.0 mmol/LCO2 24.0 mmol/ LBUN 16.0 mg/dLCREATININE 1.20 mg/dLSGOT/AST 14.0 IU/LSGPT/ALT 19.0 IU/LALK PHOS 127.0 IU/LTOTAL PROTEIN 7.80 g/dLALBUMIN 4.0 g/dLTOTAL BILI 0.30 mg/ dLCALCIUM 9.40 mg/dLeGFR 60 PSA TOTAL 0.60 ng/mL 05/07/2014 8:57 AM BNP 26.0 pg/mLMICROALBUMIN UR 353.0 ug/mLTRIGLYCERIDES 236.0 mg/dLCHOLESTEROL 203.0 mg/dLHDL 32.0 mg/dLLDL (CALC) 124.0 mg/dLGLUCOSE 172.0 mg/dLSODIUM 139.0 mmol/LPOTASSIUM 4.80 mmol/LCHLORIDE 101.0 mmol/LCO2 28.0 mmol/LBUN 13.0 mg/dLCREATININE 1.20 mg/dLSGOT/AST 18.0 IU/LSGPT/ALT 15.0 IU /LALK PHOS 86.0 IU/LTOTAL PROTEIN 7.30 g/dLALBUMIN 3.80 g/dLTOTAL BILI 0.40 mg/ dLCALCIUM 9.40 mg/dLeGFR 60 Est Avg Glucose 200.1 mg/dL 05/20/2014 10:45 AM WBC 12.6 RBC 5.17 HGB 15.10 g/dLHCT 45.80 %MCV 89.0 fLMCH 29.20 pgMCHC 33.0 g/dLRDW CV 15.60 %MPV 9.80 fLPLT 303 %NEUT 57.90 %%LYMP 32.80 %%MONO 7.0 %%EOS 1.90 %%BASO 0.40 %#NEUT 7.26 #LYMP 4.12 #MONO 0.88 #EOS 0.24 # BASO 0.05 05/09/2015 12:10 PM GLUCOSE 105.0 mg/dLSODIUM 142.0 mmol/LPOTASSIUM 4.30 mmol/ LCHLORIDE 103.0 mmol/LCO2 29.0 mmol/LBUN 10.0 mg/dLCREATININE 1.70 mg/dLALBUMIN 3.40 g/dLCALCIUM 9.0 mg/dLPHOSPHORUS 3.30 mg/dLeGFR 42 06/01/2015 1:58 PM WBC 8.5 RBC 4.11 HGB 12.30 g/dLHCT 39.40 %MCV 96.0 fLMCH 29.90 pgMCHC 31.20 g/dLRDW CV 17.20 %MPV 9.60 fLPLT 242 %NEUT 60.30 %%LYMP 30.80 %%MONO 5.30 %%EOS 3.10 %%BASO 0.50 %#NEUT 5.14 #LYMP 2.62 #MONO 0.45 #EOS 0.26 #BASO 0.04 GLUCOSE 104.0 mg/dLSODIUM 145.0 mmol/LPOTASSIUM 4.10 mmol/ LCHLORIDE 104.0 mmol/LCO2 34.0 mmol/LBUN 15.0 mg/dLCREATININE 1.60 mg/dLALBUMIN 3.90 g/dLCALCIUM 9.30 mg/dLPHOSPHORUS 3.30 mg/dLeGFR 45 VITAMIN D 17.60 ng/mL 06/15/2015 3:42 PM WBC 9.7 RBC 4.17 HGB 12.50 g/dLHCT 39.80 %MCV 95.0 fLMCH 30.0 pgMCHC 31.40 g/dLRDW CV 16.50 %MPV 9.10 fLPLT 270 %NEUT 63.90 %%LYMP 28.40 %%MONO 5.10 %%EOS 2.40 %%BASO 0.20 %#NEUT 6.18 #LYMP 2.75 #MONO 0.49 #EOS 0.23 # BASO 0.02 GLUCOSE 127.0 mg/dLSODIUM 138.0 mmol/LPOTASSIUM 4.40 mmol/LCHLORIDE 103.0 mmol/LCO2 28.0 mmol/LBUN 18.0 mg/dLCREATININE 1.70 mg/dLSGOT/AST 15.0 IU/ LSGPT/ALT 16.0 IU/LALK PHOS 107.0 IU/LTOTAL PROTEIN 7.40 g/dLALBUMIN 4.0 g/ dLTOTAL BILI 0.30 mg/dLeGFR 42 GLUCOSE 127.0 mg/dLSODIUM 138.0 mmol/LPOTASSIUM 4.40 mmol/LCHLORIDE 103.0 mmol/LCO2 28.0 mmol/LBUN 18.0 mg/dLCREATININE 1.70 mg/ dLSGOT/AST 15.0 IU/LSGPT/ALT 16.0 IU/LALK PHOS 107.0 IU/LTOTAL PROTEIN 7.40 g/ dLALBUMIN 4.0 g/dLTOTAL BILI 0.30 mg/dLCALCIUM 9.20 mg/dLeGFR 42 06/20/2015 3:14 PM GLUCOSE 104.0 mg/dLSODIUM 136.0 mmol/LPOTASSIUM 4.40 mmol/ LCHLORIDE 102.0 mmol/LCO2 27.0 mmol/LBUN 40.0 mg/dLCREATININE 2.20 mg/dLSGOT/ AST 12.0 IU/LSGPT/ALT 14.0 IU/LALK PHOS 81.0 IU/LTOTAL PROTEIN 7.40 g/dLALBUMIN 4.0 g/dLTOTAL BILI 0.70 mg/dLCALCIUM 9.0 mg/dLeGFR 31 WBC 9.3 RBC 4.34 HGB 13.0 g/dLHCT 40.30 %MCV 93.0 fLMCH 30.0 pgMCHC 32.30 g/dLRDW CV 15.90 %MPV 10.10 fLPLT 251 %NEUT 72.10 %%LYMP 23.30 %%MONO 3.10 %%EOS 1.30 %%BASO 0.20 %#NEUT 6.69 #LYMP 2.16 #MONO 0.29 #EOS 0.12 #BASO 0.02 06/23/2015 12:08 PM WBC 8.2 RBC 4.40 HGB 13.40 g/dLHCT 41.40 %MCV 94.0 fLMCH 30.50 pgMCHC 32.40 g/dLRDW CV 16.0 %MPV 10.20 fLPLT 263 %NEUT 77.90 %%LYMP 16.90 %%MONO 3.50 %%EOS 1.50 %%BASO 0.20 %#NEUT 6.40 #LYMP 1.39 #MONO 0.29 #EOS 0.12 #BASO 0.02 GLUCOSE 131.0 mg/dLSODIUM 139.0 mmol/LPOTASSIUM 4.50 mmol/ LCHLORIDE 105.0 mmol/LCO2 25.0 mmol/LBUN 42.0 mg/dLCREATININE 2.20 mg/dLSGOT/ AST 14.0 IU/LSGPT/ALT 14.0 IU/LALK PHOS 108.0 IU/LTOTAL PROTEIN 8.10 g/ dLALBUMIN 4.10 g/dLTOTAL BILI 0.30 mg/dLCALCIUM 9.40 mg/dLeGFR 31 07/06/2015 3:45 PM WBC 5.4 RBC 4.22 HGB 12.90 g/dLHCT 38.70 %MCV 92.0 fLMCH 30.60 pgMCHC 33.30 g/dLRDW CV 16.0 %MPV 10.10 fLPLT 162 %NEUT 80.50 %%LYMP 13.0 %%MONO 5.20 %%EOS 0.90 %%BASO 0.40 %#NEUT 4.35 #LYMP 0.70 #MONO 0.28 #EOS 0.05 # BASO 0.02 GLUCOSE 96.0 mg/dLSODIUM 143.0 mmol/LPOTASSIUM 4.20 mmol/LCHLORIDE 105.0 mmol/LCO2 31.0 mmol/LBUN 15.0 mg/dLCREATININE 1.50 mg/dLSGOT/AST 13.0 IU/ LSGPT/ALT 12.0 IU/LALK PHOS 104.0 IU/LTOTAL PROTEIN 6.90 g/dLALBUMIN 3.90 g/ dLTOTAL BILI 0.40 mg/dLCALCIUM 9.0 mg/dLeGFR 48 07/14/2015 12:25 PM GLUCOSE 84.0 mg/dLSODIUM 142.0 mmol/LPOTASSIUM 3.90 mmol/ LCHLORIDE 105.0 mmol/LCO2 27.0 mmol/LBUN 23.0 mg/dLCREATININE 1.50 mg/dLSGOT/ AST 12.0 IU/LSGPT/ALT 10.0 IU/LALK PHOS 90.0 IU/LTOTAL PROTEIN 6.60 g/dLALBUMIN 3.70 g/dLTOTAL BILI 0.30 mg/dLCALCIUM 8.80 mg/dLeGFR 48 WBC 3.8 RBC 4.32 HGB 12.90 g/dLHCT 39.30 %MCV 91.0 fLMCH 29.90 pgMCHC 32.80 g/dLRDW CV 16.20 %MPV 10.10 fLPLT 162 %NEUT 72.40 %%LYMP 17.50 %%MONO 8.50 %%EOS 1.10 %%BASO 0.50 %# NEUT 2.74 #LYMP 0.66 #MONO 0.32 #EOS 0.04 #BASO 0.02 07/21/2015 11:34 AM WBC 2.9 RBC 4.32 HGB 13.0 g/dLHCT 39.10 %MCV 91.0 fLMCH 30.10 pgMCHC 33.20 g/dLRDW CV 16.60 %MPV 10.0 fLPLT 141 %NEUT 80.20 %%LYMP 9.20 %%MONO 9.60 %%EOS 0.70 %%BASO 0.30 %#NEUT 2.34 #LYMP 0.27 #MONO 0.28 #EOS 0.02 # BASO 0.01 09/07/2015 9:58 AM COLOR YELLOW APPEARANCE CLEAR SPEC GRAV 1.025 pH 5.5 PROTEIN 100 GLUCOSE NEGATIVE mg/dLKETONE NEGATIVE BILIRUBIN NEGATIVE BLOOD NEGATIVE NITRITE NEGATIVE LEUK SCREEN NEGATIVE CASTS/LPF NEGATIVE /LPFCRYSTALS NEGATIVE MUCOUS THRDS NEGATIVE BACTERIA NEGATIVE EPITH CELLS FEW SQUAMOUS / HPFTRICHOMONAS NEGATIVE YEAST NEGATIVE GLUCOSE 101.0 mg/dLSODIUM 140.0 mmol/ LPOTASSIUM 3.80 mmol/LCHLORIDE 105.0 mmol/LCO2 25.0 mmol/LBUN 22.0 mg/ dLCREATININE 1.50 mg/dLSGOT/AST 11.0 IU/LSGPT/ALT 7.0 IU/LALK PHOS 102.0 IU/ LTOTAL PROTEIN 7.40 g/dLALBUMIN 3.80 g/dLTOTAL BILI 0.30 mg/dLCALCIUM 8.80 mg/ dLeGFR 48 WBC 7.3 RBC 4.56 HGB 13.40 g/dLHCT 40.30 %MCV 88.0 fLMCH 29.40 pgMCHC 33.30 g/dLRDW CV 19.30 %MPV 9.90 fLPLT 232 %NEUT 72.80 %%LYMP 16.80 %%MONO 7.80 %%EOS 2.20 %%BASO 0.40 %#NEUT 5.33 #LYMP 1.23 #MONO 0.57 #EOS 0.16 #BASO 0.03 TSH 2.390 uIU/mL 09/14/2015 9:05 AM GLUCOSE 101.0 mg/dLSODIUM 140.0 mmol/LPOTASSIUM 4.10 mmol/ LCHLORIDE 104.0 mmol/LCO2 26.0 mmol/LBUN 17.0 mg/dLCREATININE 1.50 mg/dLSGOT/ AST 12.0 IU/LSGPT/ALT 9.0 IU/LALK PHOS 103.0 IU/LTOTAL PROTEIN 6.50 g/dLALBUMIN 3.60 g/dLTOTAL BILI 0.20 mg/dLCALCIUM 8.80 mg/dLeGFR 48 WBC 6.5 RBC 4.38 HGB 12.90 g/dLHCT 39.30 %MCV 90.0 fLMCH 29.50 pgMCHC 32.80 g/dLRDW CV 19.20 %MPV 9.30 fLPLT 178 %NEUT 67.20 %%LYMP 22.80 %%MONO 7.40 %%EOS 2.30 %%BASO 0.30 %# NEUT 4.36 #LYMP 1.48 #MONO 0.48 #EOS 0.15 #BASO 0.02 History Of Immunizations Not available. History of Past Illness Name Date of Onset Comments SI joint pain Aug 23 2009 8:58AM Muscle Spasm Aug 23 2009 8:58AM Congestive Heart Failure Cardiomyopathy viral Hypertension Gastroesophageal Reflux Gout Hypercholesterolemia Diverticulosis Of Colon Chronic Obstructive Pulmonary Disease Gastritis Hernia, Hiatal [...] cervical without myelopathy Aug 28 2010 8:15AM Myofascial pain 11/11/2014 Cervical spinal stenosis 11/11/2014 Squamous [...] Jan 08 2011 8:23AM Abdominal Pain, RUQ Mar 05 2011 3:21PM Pain in joint; Knee,right George 2010 11:15AM Pain in joint; Knee,right Sep 14 2010 8:06AM Pain in joint; Knee,right Sep 2010 3:56PM Osteoarthrosis, lower leg Jun 19 2011 [...] Improving May 19 2012 10:10AM Osteoarthritis, knee May 29 2012 9:42AM Osteoarthritis, knee Jun 05 2012 9:44AM Osteoarthritis, knee Jun 12 2012 9:54AM [...] Feb 2013 9:08AM Congestive Heart Failure Feb 6 2013 9:08AM Hypertension Feb 2013 9:08AM Diabetes Mellitus, Type II b 2013 9:08AM Gastroenteritis, Noninfectious b 2013 9:08AM [...] 11 2014 2:04PM Lumbar degenerative disc disease Feb 2014 2:04PM Lumbar Radiculitis Feb 2014 2:04PM Cervicalgia b 2014 2:04PM Muscle Spasm Nov 11 2014 2:04PM Pain in joint; Knee,right Nov 11 2014 2:04PM Cervical radiculopathy b 2014 2:04PM Myofascial pain Feb 2014 2:47PM Cervical Spinal stenosis Nov 11 [...] 10:32AM Bronchiolitis, Viral Oct 17 2015 2:41PM Payers Insurance Name Company Name Plan Name Plan Number Policy Number Policy Group Number Start Date Medicare Part A Medicare Part A [id number] N/A [facility] Comm [id number] Wednesday, 2015 [facility] Medicare [facility] Life Ins [id number] N/A [place] [facility] [place] Prog [id number] N/A Medicare Part B Medicare Of [place] [id number] Friday, 2008 History of Encounters Visit Date Visit Type Provider 10/17/2015 Office visit Melecio Wilkinson DO 09/26/2015 Office visit Melecio Wilkinson DO 09/07/2015 Office visit Katty CRAIG 08/25/2015 Nurse visit Katty CRAIG 08/23/2015 [...] DO 01/12/2015 Office visit Katty CRAIG 12/16/2014 [facility] Alfa Platt MD 12/14/2014 Voided Melecio Jaja DO 12/08/2014 Office visit Alfa Platt MD 12/08/2014 Office visit Melecio Wilkinson DO 12/07/2014 Nurse visit Riri Salazar MD 12/02/2014 [facility] Alfa Platt MD 12/02/2014 [facility] Magi Powers MD 11/29/2014 [facility] Magi Powers MD 11/29/2014 Voided Katty CRAIG 11/11/2014 Office visit 11/11/2014 Office visit Katty CRAIG 11/11/2014 Office visit Melecio Wilkinson DO 10/14/2014 Office visit Katty CRAIG 09/14/2014 Office visit Katty CRAIG 09/08/2014 Hospital Aam Barrios MD 09/07/2014 Office visit Melecio Jaja DO 08/16/2014 Nurse visit Katty DURÁNP 07/19/2014 Office visit Katty DURÁNP 07/14/2014 Office visit Melecio Jaja DO 06/21/2014 Office visit Katty CRAIG 05/20/2014 Office visit Melecio Jaja DO 05/14/2014 Office visit Melecio Jaja DO 05/05/2014 Office visit Katty CRAIG 04/26/2014 Office visit Katty CRAIG 03/24/2014 Office visit Katty CRAIG 02/24/2014 Office visit Katty CRAIG 01/05/2014 Office visit Melecio Jaja DO 12/23/2013 Office visit Katty CRAIG 12/23/2013 Office visit Melecio Jaja DO 12/18/2013 Office visit Janis Navarrete GANDY DANCER 12/08/2013 Office visit Janis Navarrete GANDY DANCER 11/25/2013 Office visit Katty CRAIG 10/29/2013 Office visit Melecio Wilkinson DO 09/22/2013 Office visit Janis Navarrete APRN 07/28/2013 Office visit Katty CRAIG 07/21/2013 Office visit Melecio Wilkinson DO 07/08/2013 Office visit Katty CRAIG 05/06/2013 Office visit Melecio Wilkinson DO 04/07/2013 Office visit Gorge Yo MD 02/26/2013 Office visit Melecio Wilkinson DO 01/29/2013 Office visit Gorge Yo MD 01/06/2013 Office visit Gorge Yo MD 12/09/2012 Hospital Ama Barrios MD 12/09/2012 Office visit Stephanie Richardson GANDY DANCER 11/26/2012 Office visit Gorge Yo MD 10/30/2012 [facility] Gorge Yo MD 10/29/2012 Office visit Gorge [...] 05/14/2012 Office visit Gorge Yo MD 05/12/2012 [facility] DO 05/11/2012 [facility] DO 03/13/2012 Office visit Gorge Yo MD 02/05/2012 Office visit Melecio Wilkinson DO 01/31/2012 Office visit Gorge Yo MD 01/16/2012 Office visit Gorge Yo MD 01/01/2012 Office visit Melecio Wilkinson DO 11/16/2011 Office visit Gorge Yo MD 10/05/2011 Office visit Gorge Yo MD 10/01/2011 Office visit Janis Navarrete APRN 09/06/2011 Office visit Gorge Yo MD 07/26/2011 Office visit Melecio Wilkinson DO 06/19/2011 Office visit Gorge Yo MD 06/06/2011 Office visit Gorge Yo MD 03/22/2011 Office visit Gorge Yo MD 03/05/2011 Office visit Melecio Wilkinson DO 02/06/2011 [facility] Gorge Yo MD 01/08/2011 Office visit Melecio Wilkinson DO 12/27/2010 Office visit Gorge Yo MD 11/29/2010 Office visit Gorge Yo MD 11/07/2010 Office visit Melecio Wilkinson DO 09/28/2010 Office visit Gorge Yo MD 09/05/2010 [facility] Gorge Yo MD 08/28/2010 Office visit Gorge Yo MD 08/07/2010 Office visit Janis Navarrete APRN 07/25/2010 Office visit Melecio Wilkinson DO 06/27/2010 Office visit Gorge Yo MD 06/14/2010 Office visit Melecio Wilkinson DO 06/06/2010 Laboratory Alfonso Camacho MD 06/01/2010 Office visit Mleecio Wilkinson DO 04/17/2010 Office visit Melecio Wilkinson DO 04/06/2010 Office visit Gorge Yo MD 04/02/2010 [facility] Alfonso Camacho MD 03/31/2010 Laboratory Alfonso Camacho MD 03/31/2010 Laboratory Alfonso Camacho MD 03/31/2010 [facility] Alfonso Camacho MD 03/21/2010 Procedures Gorge Yo [...]
--- OUTSIDE RECORDS SUMMARY | 2018-01-22 10:20 | XMS REPORT ---
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 Name Role Phone Katty Jefferson PCP Allergies and Adverse Reactions Name Reaction Notes [...] TABLET BY MOUTH EVERY DAY *GEN IMDUR* tamsulosin 0.4 mg oral capsule,extended release 24hr 09/28/2014 09/23/2015 TAKE 1 CAPSULE BY MOUTH EVERY DAY diphenhydramine HCl 50 mg oral capsule 09/28/2014 TAKE 1 CAPSULE BY MOUTH EVERY SIX HOURS NEEDED loratadine 10 mg oral tablet 09/28/2014 TAKE 1 TABLET BY MOUTH EVERY DAY - GEN CLARITIN- Symbicort 160-4.5 mcg/actuation inhalation HFA aerosol inhaler 11/23/2014 INHALE 2 PUFFS BY MOUTH 2 TIMES PER DAY MORNING AND EVENING omega-3 acid ethyl esters 1 gram oral capsule 11/23/2014 TAKE 2 CAPSULES (2 GRAM) BY ORAL ROUTE 2 TIMES PER DAY FOR 30 DAYS clonidine HCl 0.2 mg oral tablet 12/23/2014 TAKE ONE TABLET BY MOUTH THREE TIMES DAILY NEEDED gabapentin 300 mg oral capsule 02/17/2015 08/16/2015 take 2 capsules (600 mg ) by oral route 3 times per day for 30 days allopurinol 300 mg oral tablet 02/21/2015 TAKE [...] day and massage lightly until it disappears methocarbamol 750 mg oral tablet 03/29/2015 08/26/2015 take 1 tablet by oral route every 6 hours as needed for 30 days cimetidine 200 mg oral tablet 03/29/2015 TAKE [...] per day with food for 90 days zolpidem 10 mg oral tablet 06/22/2015 09/20/2015 take 1 tablet (10 mg) by oral route once daily at bedtime for 30 days midodrine 5 mg oral tablet 06/27/2015 [...] 1 hour before meals and at bedtime Lyrica 50 mg oral capsule 07/06/2015 09/04/2015 take 1 capsule by oral route 2 times a day for 30 days oxycodone 20 mg oral tablet 07/06/2015 08/05/2015 take 1 tablet by oral route every 4 to 6 hours for 30 days pain midodrine 5 mg oral tablet 07/20/2015 TAKE 1 TABLET BY MOUTH TWICE DAILY guaifenesin 600 mg oral tablet extended release 12hr 07/28/2015 Take 1 tablet every 12 hours for cough amoxicillin-pot clavulanate 500-125 mg oral tablet 07/28/2015 08/04/2015 take 1 tablet by oral route every 12 hours for 7 days Name Start Date Expiration Date SIG [...] 7 days omeprazole 40 mg oral capsule,delayed release(/EC) 01/13/2015 07/12/2015 take 1 capsule by oral route 2 times a day for 30 days Cipro 500 mg oral tablet 01/13/2015 01/20/2015 take 1 tablet (500 mg) by oral route every 12 hours for 7 days methocarbamol 500 mg oral tablet 01/24/2015 06/23/2015 take 1 tablet (500 mg) by oral route 4 times a day for 30 days furosemide 20 mg [...] route every 12 hours for 7 days Bactrim DS 800-160 mg oral tablet [...] (500 mg) by oral route once daily Discontinued Name Start Date Discontinued Date SIG [...] days changed to Xalreto by Dr. Yesenia Landersoderm 5 %(700 mg/patch) topical adhesive patch,medicated 02/08/20102011 apply 2 patches by transdermal route once [...] for 30 days Discontinued by Hospitalist at [place] Augmentin 875-125 mg oral tablet 11/07/2010 03/05/2011 [...] dose adjustments of gabapentin for renal function Problem List Description Status Onset SI joint [...] HC BMI BSA BMI Percentile O2 Sat(%) 07/11/2015 1:15:00 PM 144 mmHg 84 mmHg [...] 12:00 AM RADEX ELBOW 2 VIEWS Reviewed 06/19/2011 12:00 AM DRAIN/INJ JOINT/BURSA W/O US Reviewed 06/19/2011 12:00 AM Kenalog 40 Mg [facility]#3315-7545-75 Reviewed 11/03/2009 12:00 AM PROTHROMBIN TIME Reviewed 07/26/2011 12:00 AM X-RAY EXAM OF ABDOMEN Reviewed 10/12/2011 12:00 AM EXTREMITY STUDY Reviewed 01/01/2012 12:[address] [facility]#[address]-57 Reviewed 01/16/2012 12:00 AM DRAIN/INJ JOINT/BURSA W/O US Reviewed 01/16/2012 12:00 AM Kenalog per 10Mg [facility]#[address]-11(Srinath) Reviewed 02/05/2012 12:[address] ABDOMEN W/O & W/DYE Reviewed 02/05/2012 12:[address] PELVIS W/O & W/DYE Reviewed 05/29/2012 12:00 AM DRAIN/INJ JOINT/BURSA W/O US Reviewed 05/29/2012 12:00 AM SYNVISC, Per 1 Mg (2ml) [facility] [address]-23 Reviewed 06/05/2012 12:00 AM DRAIN/INJ JOINT/BURSA W/O US Reviewed 06/05/2012 12:00 AM SYNVISC, Per 1 Mg (2ml) [facility] [address]-88 Reviewed 06/12/2012 12:00 AM DRAIN/INJ JOINT/BURSA W/O US Reviewed 06/12/2012 12:00 AM SYNVISC, Per 1 Mg (2ml) [facility] [address]-08 Reviewed 07/16/2012 12:00 AM Hepatobiliary ductal system imaging with functional assessment Reviewed 07/16/2012 12:[address] [facility]#[id number] Reviewed 07/16/2012 12:00 AM Depo-Medrol [address] [facility]#[id number] Reviewed 07/16/2012 12:00 AM COMPREHEN METABOLIC PANEL Reviewed 07/16/2012 12:00 AM LIPID PANEL Reviewed 07/16/2012 12:00 AM Flu Injection [address] [facility]# [address]-53 RHC Reviewed 08/19/2012 12:00 AM METABOLIC PANEL TOTAL CA Reviewed 12/21/2009 12:[address] ABDOMEN W/O & W/DYE Reviewed 10/02/2012 12:00 AM CHEST X-RAY 2VW FRONTAL&LATL Reviewed 10/09/2012 12:[address] [facility]#[id number] Reviewed 10/09/2012 12:00 AM Depo-Medrol [address] [facility]#[id number] Reviewed 12/09/2012 12:00 AM CHEST X-RAY 2VW [...] 12:00 AM SYNVISC-ONE, Per 1 Mg (6ml) [facility] [address]-65 Reviewed 02/26/2013 12:[address] NECK SPINE W/O & W/DYE Reviewed 04/07/2013 12:00 AM INJECT TRIGGER POINTS 3/> Reviewed 04/07/2013 12:00 AM Kenalog per 10Mg Im-Nd#[address]-21(Srinath) Reviewed 07/21/2013 12:00 AM CHEST X-RAY 2VW FRONTAL&LATL Reviewed 07/21/2013 12:00 AM Decadron 8 mg NDC# [address]-95 Reviewed 07/21/2013 12:00 AM Depo-Medrol 80 mg NDC#[address]-87 Reviewed 07/21/2013 12:00 AM Rocephin 500 mg [place]#5582-0404-97 Reviewed 09/22/2013 12:00 AM CHEST X-RAY 2VW FRONTAL&LATL Returned 10/29/2013 12:00 AM X-RAY EXAM OF ABDOMEN Reviewed 12/08/2013 12:00 AM THER/PROPH/DIAG INJ SC/IM Reviewed 12/08/2013 12:00 AM Decadron, Per 1 Mg ND# [address]-82 Reviewed 12/08/2013 12:00 AM Depo-Medrol, Per 80 Mg ND#6200-2405-24 Reviewed 12/08/2013 12:00 AM CHEST X-RAY 2VW [...] Returned 01/05/2014 12:00 AM Decadron 8 mg ND# [address]-46 Reviewed 01/05/2014 12:00 AM Depo-Medrol 80 mg NDC#[address]-48 Reviewed 01/05/2014 12:00 AM Rocephin 1 gram ND#1236-4188-22 Reviewed 03/15/2010 12:00 AM PROTHROMBIN TIME Reviewed [...] Reviewed 09/28/2010 12:00 AM Kenalog per 10Mg [facility]#[address]-52(rSinath) Reviewed 05/05/2014 12:00 AM DRAIN/INJ JOINT/BURSA W/O US Reviewed 05/05/2014 12:00 AM SYNVISC-ONE, Per 1 Mg (6ml) [facility] [address]-13 Reviewed 05/06/2014 12:00 AM COMPREHEN METABOLIC PANEL [...] Reviewed 11/07/2010 12:[address] [facility]#[address]-52 Reviewed 07/14/2014 12:00 AM Fluzone MEDICARE Only Reviewed 11/29/2010 12:00 AM INJECT TRIGGER POINTS 3/> Reviewed 11/29/2010 12:00 AM Kenalog per 10Mg [facility]#[address]-55(Srinath) Reviewed 07/14/2014 12:00 AM Decadron injection Reviewed [...] 13.40 g/dLHCT 41.40 %MCV 94.0 fLMCH 30.50 pgHC 32.40 g/dLRDW CV 16.0 %MPV 10.20 fLPLT [...] 4.22 HGB 12.90 g/dLHCT 38.70 %MCV 92.0 fLH 30.60 pgHC 33.30 g/dLRDW CV 16.0 %MPV 10.10 fLPLT [...] #MONO 0.28 #EOS 0.02 # BASO 0.01 History Of Immunizations Not available. History of [...] Neuralgia Sep 28 2010 8:57AM Bronchitis, Acute b 2010 10:56AM Sinusitis, Acute Nov 07 2010 [...] Jan 08 2011 8:23AM Abdominal Pain, RUQ George 13 2010 3:21PM Pain in joint; Knee,right Mar 22 2011 11:15AM Pain in joint; Knee,right Jun 06 2011 8:06AM Pain in joint; Knee,right Jun 19 [...] May 19 2012 10:10AM Osteoarthritis, knee Sep 2011 9:42AM Osteoarthritis, knee Jun 05 2012 9:44AM [...] Feb 2013 9:08AM Diabetes Mellitus, Type II Feb 2013 9:08AM Gastroenteritis, Noninfectious Feb 6 2014 9:08AM Lumbar spondylosis Nov 25 2013 8:58AM [...] II Dec 23 2013 11:25AM Bronchitis, Acute Dec 15 2013 1:45PM Lumbar spondylosis Feb 24 2014 1:16PM [...] Left Shoulder arthritis Jul 11 2015 1:17PM Payers Insurance Name Company Name Plan Name Plan Number Policy Number Policy Group Number Start Date Medicare Part A Medicare Part A [id number] N/A [employer] [id number] N/A [place] Medical Assistance [facility] Medical Assistance Prog [id number] N/A Medicare Part B Medicare Of [place] [id number] Friday, 2008 History of Encounters Visit Date Visit Type Provider 07/11/2015 Office visit Katty CRAIG 07/06/2015 Office visit Katty CRAIG 06/27/2015 Office visit Melecio Wilkinson DO 06/20/2015 Office visit Melecio Wilkinson DO 06/15/2015 Office visit Katty CRAIG 06/02/2015 Office visit Melecio Wilkinson DO 05/16/2015 Office visit Katty CRAIG 05/16/2015 Office visit Melecio Jaja DO 05/09/2015 [...] visit Katty CRAIG 01/13/2015 Office visit Melecio [place] DO 01/12/2015 Office visit Katty CRAIG 12/16/2014 [facility] Alfa Platt MD 12/14/2014 Voided Melecio Jaja DO 12/08/2014 Office visit Alfa Platt MD 12/08/2014 Office visit Melecio Jaja DO 12/07/2014 Nurse visit Riri Salazar MD 12/02/2014 [facility] Alfa Platt MD 12/02/2014 [facility] Voided Katty CRAIG 11/11/2014 Office visit Katty CRAIG 11/11/2014 Office visit Melecio Jaja DO 10/14/2014 Office visit Katty CRAIG 09/14/2014 Office visit Katty CRAIG 09/08/2014 [facility] Ama Barrios MD 09/07/2014 Office visit Melecio Jaja DO 08/16/2014 Nurse visit Katty CRAIG 07/19/2014 Office visit Katty CRAIG 07/14/2014 Office visit Melecio Jaja DO 06/21/2014 Office visit Katty CRAIG 05/20/2014 Office visit Melecio Jaja DO 05/14/2014 Office visit Melecio Jaja DO 05/05/2014 Office visit Katty CRAIG 04/26/2014 Office visit Katty Jefferson HEAD SAMPLER 03/24/2014 Office visit aKtty Jefferson HEAD SAMPLER 02/24/2014 Office visit Katty Jefferson HEAD SAMPLER 01/05/2014 Office visit Melecio Wilkinson DO 12/23/2013 Office visit Katty Palma Ronny HEAD SAMPLER 12/23/2013 Office visit Melecio Wilkinson DO 12/18/2013 Office visit Janis Navarrete COSMETIC MANAGER 12/08/2013 Office visit Janis Navarrete COSMETIC MANAGER 11/25/2013 Office visit Katty [place]ael[place] Jefferson HEAD SAMPLER 10/29/2013 Office visit Melecio Wilkinson DO 09/22/2013 Office visit Janis Navarrete COSMETIC MANAGER 07/28/2013 Office visit Katty Jefferson HEAD SAMPLER 07/21/2013 Office visit Melecio Wilkinson DO 07/08/2013 Office visit Katty Jefferson HEAD SAMPLER 05/06/2013 Office visit Melecio Wilkinson DO 04/07/2013 Office visit Gorge Yo MD 02/26/2013 Office visit Melecio Wilkinson DO 01/29/2013 Office visit Gorge Yo MD 01/06/2013 Office visit Gorge Yo MD 12/09/2012 [facility] Ama Barrios MD 12/09/2012 Office visit Stephanienereida Richardson COSMETIC MANAGER 11/26/2012 Office visit Gorge Yo MD 10/30/2012 [facility] Gorge Yo MD 10/29/2012 Office visit Gorge [...] Office visit Gorge Yo MD 05/12/2012 [facility] DO 05/11/2012 [facility] DO 03/13/2012 Office visit Gorge Yo MD 02/05/2012 Office visit Melecio Wilkinson DO 01/31/2012 Office visit Gorge Yo MD 01/16/2012 Office visit Gorge Yo MD 01/01/2012 Office visit Melecio Wilkinson DO 11/16/2011 Office visit Gorge Yo MD 10/05/2011 Office visit Gorge Yo MD 10/01/2011 Office visit Janis Navarrete COSMETIC MANAGER 09/06/2011 Office visit Gorge Yo MD 07/26/2011 [...] 09/28/2010 Office visit Gorge Yo MD 09/05/2010 [facility] Gorge Yo MD 08/28/2010 Office visit Gorge [...]
[2018-01-22] MEDS ORDERED: NS IV 1000 ML 1,000 ML IV ONE (10:22)
--- OUTSIDE RECORDS SUMMARY | 2018-01-22 10:24 | XMS REPORT ---
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 Name Role Phone Melecio Wilkinson PCP Unavailable Allergies and Adverse Reactions Name Reaction Notes NO KNOWN DRUG ALLERGIES Plan of Treatment Planned Activity Comments Planned Date Planned Time Plan/Goal AIRWAY INHALATION TREATMENT 01/01/2012 12:00 AM ELECTROCARDIOGRAM COMPLETE 12/09/2012 12:[address] ABD & PELV W/CONTRAST 05/16/2015 12:00 AM Medications Active Name Start [...] 2 TIMES PER DAY FOR 30 DAYS allopurinol 300 mg oral tablet 02/21/2015 TAKE [...] EVERY DAY 30 MINUTES BEFORE A MEAL ondansetron 8 mg oral tablet,disintegrating take 1 [...] 08/17/2015 TAKE 1 TABLET BY MOUTH DAILY loratadine 10 mg oral tablet 09/14/2015 TAKE 1 TABLET BY MOUTH EVERY DAY - GEN CLARITIN- tamsulosin 0.4 mg oral capsule,extended release 24hr 09/14/2015 09/08/2016 TAKE 1 CAPSULE BY MOUTH EVERY DAY cimetidine 200 mg oral tablet 10/13/2015 TAKE 1 TABLET BY MOUTH EVERY DAY 30 MINUTES BEFORE A MEAL clonidine HCl 0.2 mg oral tablet 11/21/2015 TAKE ONE TABLET BY MOUTH THREE TIMES DAILY NEEDED lisinopril 20 mg oral tablet 12/08/2015 TAKE 1 TABLET BY MOUTH DAILY midodrine 5 mg oral tablet 01/06/2016 TAKE 1 TABLET BY MOUTH TWICE DAILY methocarbamol 750 mg oral tablet 01/06/2016 TAKE 1 TABLET BY ORAL ROUTE EVERY 6 HOURS NEEDED FOR 30 DAYS zolpidem 10 mg oral tablet 01/09/2016 03/09/2016 take 1 tablet (10 mg) by oral route once daily at bedtime for 30 days Symbicort 160-4.5 mcg/actuation inhalation HFA aerosol inhaler 01/30/2016 INHALE 2 PUFFS BY MOUTH 2 TIMES PER DAY MORNING AND EVENING omeprazole 40 mg oral capsule,delayed release(DR/EC) 02/06/2016 TAKE 1 CAPSULE BY MOUTH TWICE DAILY digoxin 125 mcg oral tablet 02/06/2016 TAKE 1 TABLET BY MOUTH EVERY DAY oxycodone 20 mg oral tablet 02/16/2016 03/17/2016 take 1 tablet by oral route every 4 to 6 hours for 30 days pain oxycodone 30 mg oral tablet,oral only,ext.rel.12 hr 02/17/2016 take 1 tablet (30 mg) by oral route every 12 hours Name Start Date Expiration Date SIG Comments [...] for 30 days Discontinued by Hospitalist at [place] Augmentin 875-125 mg oral tablet 11/07/2010 03/05/2011 [...] take 1.5 tablets by oral route daily guaifenesin 600 mg oral tablet extended release [...] ( 10 mg) daily for 4 days omega-3 acid ethyl esters 1 gram oral capsule 11/10/2015 02/17/2016 TAKE 2 CAPSULES (2 GRAM) BY ORAL ROUTE 2 TIMES PER DAY FOR 30 DAYS Lyrica 50 mg oral capsule 11/21/2015 02/17/2016 take 1 capsule by oral route 2 times a day for 30 days gentamicin 0.3 % ophthalmic drops 12/13/2015 01/19/2016 [...] route every 12 hours for 30 days [place] stoned Problem List Description Status Onset SI joint [...] HC BMI BSA BMI Percentile O2 Sat(%) 02/17/2016 9:56:00 AM 140 mmHg 92 mmHg [...] 12:00 AM Kenalog, Per 10 Mg [facility]#4207-4298-43 Reviewed 06/19/2011 12:00 AM DRAIN/INJ JOINT/BURSA W/O US Reviewed 06/19/2011 12:00 AM Kenalog 40 Mg [facility]#0579-7275-43 Reviewed 08/25/2015 12:00 AM OFFICE/OUTPATIENT VISIT EST Reviewed 08/23/2015 12:00 AM Decadron, Per 1 Mg [facility]# [address]-73 Reviewed 08/23/2015 12:00 AM Depo-Medrol, Per 80 Mg [facility]#[address]-83 Reviewed 09/07/2015 12:00 AM X-RAY EXAM L-S SPINE 10/26 VWS Returned 09/07/2015 12:00 AM COMPLETE CBC W/AUTO DIFF WBC Returned 09/07/2015 12:00 AM ASSAY THYROID STIM HORMONE Reviewed 09/07/2015 12:00 AM COMPREHEN METABOLIC PANEL Returned 09/07/2015 12:00 AM URNLS DIP STICK/TABLET RGNT AUTO W/O MICROSCOPY Returned 09/26/2015 12:00 AM Pain Management Consult Reviewed 11/03/2009 12:00 AM PROTHROMBIN TIME Reviewed 07/26/2011 12:00 AM X-RAY EXAM OF ABDOMEN Reviewed 11/21/2015 12:00 AM Orthopedics Consultation Reviewed 11/21/2015 12:00 AM Physical Therapy Consultation Reviewed 12/20/2015 12:00 AM EXTREMITY STUDY Reviewed 10/12/2011 12:00 AM EXTREMITY STUDY Reviewed 01/01/2012 12:00 AM Rocephin 1 gm [facility]#[address]-29 Reviewed 01/16/2012 12:00 AM DRAIN/INJ JOINT/BURSA W/O US Reviewed 01/16/2012 12:00 AM Kenalog per 10Mg [facility]#[address]-31(Srinath) Reviewed 02/05/2012 12:[address] ABDOMEN W/O & W/DYE Reviewed 02/05/2012 12:[address] PELVIS W/O & W/DYE Reviewed 05/29/2012 12:00 AM DRAIN/INJ JOINT/BURSA W/O US Reviewed 05/29/2012 12:00 AM SYNVISC, Per 1 Mg (2ml) [facility] [address]-13 Reviewed 06/05/2012 12:00 AM DRAIN/INJ JOINT/BURSA W/O US Reviewed 06/05/2012 12:00 AM SYNVISC, Per 1 Mg (2ml) [facility] [address]-95 Reviewed 06/12/2012 12:00 AM DRAIN/INJ JOINT/BURSA W/O US Reviewed 06/12/2012 12:00 AM SYNVISC, Per 1 Mg (2ml) [facility] [address]-98 Reviewed 07/16/2012 12:00 AM Hepatobiliary ductal system imaging with functional assessment Reviewed 07/16/2012 12:00 AM Decadron 8 mg [facility]#[id number] Reviewed 07/16/2012 12:00 AM Depo-Medrol 80mg [facility]#75950185320 Reviewed 07/16/2012 12:00 AM COMPREHEN METABOLIC PANEL Reviewed 07/16/2012 12:00 AM LIPID PANEL Reviewed 07/16/2012 12:00 AM Flu Injection 3 Years And Above [facility]# [address]-76 RHC Reviewed 08/19/2012 12:00 AM METABOLIC PANEL TOTAL CA Reviewed 12/21/2009 12:[address] ABDOMEN W/O & W/DYE Reviewed 10/02/2012 12:00 AM CHEST X-RAY 2VW FRONTAL&LATL Reviewed 10/09/2012 12:00 AM Decadron 8 mg [facility]#51389099074 Reviewed 10/09/2012 12:00 AM Depo-Medrol 80mg [facility]#59097883203 Reviewed 12/09/2012 12:00 AM CHEST X-RAY 2VW [...] AM SYNVISC-ONE, Per 1 Mg (6ml) [facility] [address]-91 Reviewed 02/26/2013 12:[address] NECK SPINE W/O & W/DYE Reviewed 04/07/2013 12:00 AM INJECT TRIGGER POINTS 3/> Reviewed 04/07/2013 12:00 AM Kenalog per 10Mg [facility]#[address]-94(Srinath) Reviewed 07/21/2013 12:00 AM CHEST X-RAY 2VW FRONTAL&LATL Reviewed 07/21/2013 12:00 AM Decadron 8 mg [facility]# [address]-26 Reviewed 07/21/2013 12:00 AM Depo-Medrol 80 mg [facility]#[address]-28 Reviewed 07/21/2013 12:00 AM Rocephin 500 mg [facility]#9872-8537-14 Reviewed 09/22/2013 12:00 AM CHEST X-RAY 2VW FRONTAL&LATL Returned 10/29/2013 12:00 AM X-RAY EXAM OF ABDOMEN Reviewed 12/08/2013 12:00 AM THER/PROPH/DIAG INJ SC/IM Reviewed 12/08/2013 12:00 AM Decadron, Per 1 Mg [facility]# [address]-36 Reviewed 12/08/2013 12:00 AM Depo-Medrol, Per 80 Mg [facility]#5244-1619-21 Reviewed 12/08/2013 12:00 AM CHEST X-RAY 2VW [...] 01/05/2014 12:00 AM Decadron 8 mg [facility]# [address]-81 Reviewed 01/05/2014 12:00 AM Depo-Medrol 80 mg [facility]#[address]-72 Reviewed 01/05/2014 12:00 AM Rocephin 1 gram [facility]#3877-9026-77 Reviewed 03/15/2010 12:00 AM PROTHROMBIN TIME Reviewed [...] 09/28/2010 12:00 AM Kenalog per 10Mg [facility]#[address]-66(Srinath) Reviewed 05/05/2014 12:00 AM DRAIN/INJ JOINT/BURSA W/O US Reviewed 05/05/2014 12:00 AM SYNVISC-ONE, Per 1 Mg (6ml) [facility] [address]-79 Reviewed 05/06/2014 12:00 AM COMPREHEN METABOLIC PANEL [...] 11/07/2010 12:00 AM Rocephin 500 mg [facility]#[address]-34 Reviewed 07/14/2014 12:00 AM Fluzone MEDICARE Only Reviewed 11/29/2010 12:00 AM INJECT TRIGGER POINTS 3/> Reviewed 11/29/2010 12:00 AM Kenalog per 10Mg [facility]#[address]-46(Srinath) Reviewed 07/14/2014 12:00 AM Decadron injection Reviewed [...] RENAL FUNCTION PANEL Reviewed 05/16/2015 12:00 AM LOWER EXTREMITY STUDY Reviewed 05/16/2015 12:00 AM LOWER EXTREMITY STUDY Reviewed Results Summary Data and Description Results [...] TRICHOMONAS NEGATIVE YEAST NEGATIVE HGB A1C 8.20 %Est Avg Glucose 188.6 mg/dLTRIGLYCERIDES 210.0 mg/dLCHOLESTEROL 213.0 mg/dLHDL 46.0 mg/dLLDL (CALC) 125.0 mg/dLGLUCOSE 187.0 mg/dLSODIUM 136.0 mmol/LPOTASSIUM 4.40 mmol/LCHLORIDE 98.0 mmol/LCO2 24.0 mmol/LBUN 16.0 mg/dLCREATININE 1.20 mg/dLSGOT/AST 14.0 IU/LSGPT/ALT 19.0 IU/ LALK PHOS 127.0 IU/LTOTAL PROTEIN 7.80 g/dLALBUMIN 4.0 [...] BILI 0.40 mg/ dLCALCIUM 9.40 mg/dLeGFR 60 HGB A1C 8.60 %Est Avg Glucose [...] 1.48 #MONO 0.48 #EOS 0.15 #BASO 0.02 01/10/2016 9:20 AM WBC 8.2 RBC 4.60 HGB 12.70 g/dLHCT 41.10 %MCV 89.0 fLMCH 27.60 pgMCHC 30.90 g/dLRDW CV 15.50 %MPV 9.50 fLPLT 299 %NEUT 76.60 %%LYMP 12.60 %%MONO 7.10 %%EOS 2.70 %%BASO 0.40 %#NEUT 6.27 #LYMP 1.03 #MONO 0.58 #EOS 0.22 #BASO 0.03 GLUCOSE 114.0 mg/dLSODIUM 142.0 mmol/LPOTASSIUM 3.60 mmol/ LCHLORIDE 101.0 mmol/LCO2 29.0 mmol/LBUN 17.0 mg/dLCREATININE 1.50 mg/dLSGOT/ AST 11.0 IU/LSGPT/ALT <6 IU/LALK PHOS 100.0 IU/LTOTAL PROTEIN 7.0 g/dLALBUMIN 3.70 g/dLTOTAL BILI 0.40 mg/dLCALCIUM 9.0 mg/dLeGFR 48 02/15/2016 1:35 PM WBC 9.7 RBC 4.73 HGB 13.0 g/dLHCT 41.50 %MCV 88.0 fLMCH 27.50 pgMCHC 31.30 g/dLRDW CV 16.0 %MPV 9.70 fLPLT 329 %NEUT 75.60 %%LYMP 12.50 %%MONO 7.50 %%EOS 3.10 %%BASO 0.40 %#NEUT 7.35 #LYMP 1.22 #MONO 0.73 #EOS 0.30 # BASO 0.04 GLUCOSE 116.0 mg/dLSODIUM 138.0 mmol/LPOTASSIUM 3.30 mmol/LCHLORIDE 100.0 mmol/LCO2 32.0 mmol/LBUN 18.0 mg/dLCREATININE 1.60 mg/dLALBUMIN 3.90 g/ dLCALCIUM 9.30 mg/dLPHOSPHORUS 3.30 mg/dLeGFR 45 VITAMIN D 12.30 ng/mL 02/15/2016 4:51 PM COLOR YELLOW APPEARANCE CLEAR SPEC GRAV 1.025 pH 5.5 PROTEIN 100 GLUCOSE NEGATIVE mg/dLKETONE NEGATIVE BILIRUBIN NEGATIVE BLOOD TRACE -INTACT NITRITE NEGATIVE LEUK SCREEN NEGATIVE CASTS/LPF NEGATIVE /LPFCRYSTALS 1 + AMORPHOUS MUCOUS THRDS NEGATIVE BACTERIA FEW EPITH CELLS NEGATIVE / HPFTRICHOMONAS NEGATIVE YEAST NEGATIVE PROTEIN UR 62.0 mg/dLCREAT UR RAND 177.0 mg/dL History Of Immunizations Not available. History of [...] 2010 8:06AM Pain in joint; Knee,right Sep 27 2010 3:56PM Osteoarthrosis, lower leg Jun 19 [...] Failure Feb 6 2013 9:08AM Hypertension Feb 6 2013 9:08AM Diabetes Mellitus, Type II Feb 2013 9:08AM Gastroenteritis, Noninfectious Feb 6 2013 9:08AM Lumbar spondylosis Nov 25 2013 [...] left shoulder pain Feb 17 2016 9:58AM Payers Insurance Name Company Name Plan Name Plan Number Policy Number Policy Group Number Start Date Medicare Part A Medicare RHC [id number] N/A [employer] - RHC - [place] State Plan [employer] - [place] State Plan [id number] Wednesday, 2015 Medicare Part A Medicare - Lab/Xray [id number] N/A [employer] Ins [phone] N/A [place] Medical Assistance [facility] Medical Assistance Prog [id number] N/A Medicare Part B Medicare Of [place] [id number] Friday, February 22, 2008 Medicare Part A Medicare Part A [id number] N/A [facility] - RHC - [facility] Plan [facility] Comm [id number] Wednesday, September 23, 2015 History of Encounters Visit Date Visit Type Provider 02/17/2016 Office visit Melecio Wilkinson DO 01/19/2016 Office visit Melecio Wilkinson DO 12/20/2015 Office visit Melecio Wilkinson DO 11/21/2015 Office visit Melecio Wilkinson DO 10/17/2015 Office visit Melecio Wilkinson DO 09/26/2015 Office visit Melecio Wilkinson DO 09/07/2015 Office visit Katty CRAIG 08/25/2015 Nurse visit Katty CRAIG 08/23/2015 Office visit Melecio Wilkinson DO 08/08/2015 Office visit Melecio Wilkinson DO 08/05/2015 Office visit Katty CRAIG 07/11/2015 [...] DO 01/12/2015 Office visit Katty CRAIG 12/16/2014 [facility] Alfa Platt MD 12/14/2014 Voided Melecio Jaja DO 12/08/2014 Office visit Alfa Platt MD 12/08/2014 Office visit Melecio Jaja DO 12/07/2014 Nurse visit Riri Salazar MD 12/02/2014 [facility] Alfa Platt MD 12/02/2014 [facility] Magi Powers MD 11/29/2014 [facility] Magi Powers MD 11/29/2014 Voided Katty CRAIG 11/11/2014 Office visit 11/11/2014 Office visit Katty CRAIG 11/11/2014 Office visit Melecio Jaja DO 10/14/2014 Office visit Katty CRAIG 09/14/2014 Office visit Katty CRAIG 09/08/2014 [facility] Ama Barrios MD 09/07/2014 Office visit Melecio Jaja DO 08/16/2014 Nurse visit Katty CRAIG 07/19/2014 Office visit Katty CRAIG 07/14/2014 Office visit Melecio Jaja DO 06/21/2014 Office visit Katty CRAIG 05/20/2014 Office visit Melecio Jaja DO 05/14/2014 Office visit Melecio Wilkinson DO 05/05/2014 Office visit Katty CRAIG 04/26/2014 Office visit Katty Jefferson CABLE SPLICER 03/24/2014 Office visit Katty MisaelNeville Jefferson CABLE SPLICER 02/24/2014 Office visit Katty Jefferson CABLE SPLICER 01/05/2014 Office visit Melecio Jaja DO 12/23/2013 Office visit Katty Jefferson CABLE SPLICER 12/23/2013 Office visit Melecio Wilkinson DO 12/18/2013 Office visit Janis Navarrete LOADING INSPECTOR 12/08/2013 Office visit Janis Navarrete LOADING INSPECTOR 11/25/2013 Office visit Katty MNeville Jefferson CABLE SPLICER 10/29/2013 Office visit Melecio Wilkinson DO 09/22/2013 Office visit Janis Navarrete LOADING INSPECTOR 07/28/2013 Office visit Katty Jefferson CABLE SPLICER 07/21/2013 Office visit Melecio Wilkinson DO 07/08/2013 Office visit Katty DURÁNP 05/06/2013 Office visit Melecio Wilkinson DO 04/07/2013 Office visit Gorge Yo MD 02/26/2013 Office visit Melecio Wilkinson DO 01/29/2013 Office visit Gorge Yo MD 01/06/2013 Office visit Gorge Yo MD 12/09/2012 [facility] Ama Barrios MD 12/09/2012 Office visit Stephanie Richardson LOADING INSPECTOR 11/26/2012 Office visit Gorge Yo MD 10/30/2012 [facility] Gorge Yo MD 10/29/2012 Office visit [...] 05/14/2012 Office visit Gorge Yo MD 05/12/2012 [facility] DO 05/11/2012 [facility] DO 03/13/2012 Office visit Gorge Yo MD [...] visit Melecio Wilkinson DO 02/06/2011 Hospital Gorge oY MD 01/08/2011 Office visit Melecio Wilkinson DO 12/27/2010 Office visit Gorge Yo MD 11/29/2010 Office visit Gorge Yo MD 11/07/2010 Office visit Melecio Wilkinson DO 09/28/2010 Office visit Gorge Yo MD 09/05/2010 [facility] Gorge Yo MD 08/28/2010 Office visit [...] visit Gorge Yo MD 06/17/2009 Office visit Vasmhi Aguero MD 05/24/2009 Office visit Gorge Yo MD
[2018-01-22] MEDS ORDERED: HEParin 1000 UNIT/ML (10ML VIAL) FOR BOLUS ONE (10:25)
--- OUTSIDE RECORDS SUMMARY | 2018-01-22 10:28 | XMS REPORT ---
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 Name Role Phone Melecio Wilkinson PCP Unavailable Melecio Wilkinson PreferredProvider Unavailable Allergies and Adverse Reactions Name Reaction [...] TAKE 1 TABLET BY MOUTH EVERY DAY Albuterol Sulfate 2.5 mg /3 mL (0.083 %) Inhalation Solution for Nebulization 08/28/2016 08/28/2017 inhale 3 milliliters (2.5 mg) by nebulization route 4 times per day tamsulosin 0.4 mg oral capsule,extended release 24hr 08/28/2016 TAKE 1 CAPSULE BY MOUTH EVERY DAY loratadine 10 mg oral tablet 08/28/2016 TAKE 1 TABLET BY MOUTH EVERY DAY - GEN CLARITIN- albuterol sulfate 2.5 mg /3 mL (0.083 %) inhalation solution for nebulization 09/25/2016 USE 1 VIAL IN NEBULIZER FOUR TIMES DAILY Singulair 10 mg oral tablet 10/26/2016 take 1 tablet (10 mg) by oral route once daily in the evening bumetanide 2 mg oral tablet take 1 tablet (2 mg) by oral route every other day for 10 days atorvastatin 40 mg oral tablet 01/24/2017 01/19/2018 take 1 tablet (40 mg) by oral route once daily for 90 days clonidine HCl 0.2 mg oral tablet 01/24/2017 07/23/2017 TAKE ONE TABLET BY MOUTH THREE TIMES DAILY NEEDED methocarbamol 750 mg oral tablet 01/24/2017 TAKE 1 TABLET BY MOUTH EVERY SIX HOURS NEEDED sucralfate 1 gram oral tablet 01/28/2017 TAKE 1 TABLET BY MOUTH 30 MINUITES PRIOR TO MEALS AND AT BEDTIME digoxin 125 mcg oral tablet 01/28/2017 TAKE 1 TABLET BY MOUTH EVERY DAY magnesium oxide 400 mg oral tablet take 1 tablet by oral route 3 times a day midodrine 5 mg oral tablet 02/22/2017 TAKE 1 TABLET BY MOUTH TWICE DAILY Symbicort 160-4.5 mcg/actuation inhalation HFA aerosol inhaler 02/22/2017 INHALE 2 PUFFS BY MOUTH 2 TIMES PER DAY MORNING AND EVENING carvedilol 25 mg oral tablet 03/21/2017 TAKE ONE TABLET BY MOUTH TWICE DAILY WITH FOOD Spiriva Respimat 2.5 mcg/actuation inhalation mist 04/03/2017 inhale 2 puffs (5 mcg) by inhalation route once daily at the same time each day zolpidem 10 mg oral tablet 04/19/2017 06/18/2017 take 1 tablet (10 mg) by oral route once daily at bedtime for 30 days oxycodone 20 mg oral tablet,oral only,ext.rel.12 hr 04/26/2017 05/26/2017 take 1 tablet (20 mg) by oral route every 8 hours for 30 days oxycodone 20 mg oral tablet 04/26/2017 05/26/2017 take 1 tablet by oral route q6h prn for 30 days albuterol sulfate 2.5 mg /3 mL (0.083 %) inhalation solution for nebulization 05/07/2017 USE 1 VIAL IN NEBULIZER FOUR TIMES DAILY omeprazole 40 mg oral capsule,delayed release(DR/EC) 05/21/2017 09/18/2017 TAKE 1 CAPSULE BY MOUTH TWICE DAILY Levaquin 500 mg oral tablet 05/21/2017 take 1 tablet (500 mg) by oral route once daily for 10 days guaifenesin 600 mg oral tablet extended release 12hr 05/21/2017 take 1 tablet (600 mg) by oral route every 12 hours as needed Name Start Date Expiration Date SIG Comments [...] route every 12 hours for 7 days Klor-Con 10 10 mEq oral tablet extended release 01/24/2017 02/23/2017 take 1 tablet (10 meq) by oral route once daily with food for 30 days furosemide 40 mg oral tablet 01/24/2017 02/23/2017 [...] for 30 days Discontinued by Hospitalist at [place] niacin 500 mg oral tablet 10/10/2016 take [...] route every 12 hours for 30 days Kandis dexter Amitiza 24 mcg oral capsule 05/03/2016 10/10/2016 [...] (10 mg) by oral route once daily allopurinol 100 mg oral tablet 01/24/2017 02/03/2017 take 1 and 1/2 tablet ( 150 mg) by oral route once daily allopurinol 100 mg oral tablet 01/24/2017 02/03/2017 take 1 and 1/2 tablet ( 150 mg) by oral route once daily Acute renal failure Problem List Description Status Onset SI joint [...] HC BMI BSA BMI Percentile O2 Sat(%) 04/03/2017 8:14:00 AM 148 mmHg 78 mmHg [...] 07/11/2015 12:00 AM Kenalog, Per 10 Mg [facility]#8959-3195-62 Reviewed 12/07/2014 12:00 AM OFFICE/OUTPATIENT VISIT EST Reviewed 06/19/2011 12:00 AM DRAIN/INJ JOINT/BURSA W/O US Reviewed 06/19/2011 12:00 AM Kenalog 40 Mg [facility]#4141-1759-27 Reviewed 08/25/2015 12:00 AM OFFICE/OUTPATIENT VISIT EST Reviewed 08/23/2015 12:00 AM Decadron, Per 1 Mg [facility]# [address]-75 Reviewed 08/23/2015 12:00 AM Depo-Medrol, Per 80 Mg [facility]#[address]-08 Reviewed 09/07/2015 12:00 AM X-RAY EXAM L-S [...] 10/23/2015 12:00 AM Decadron, Per 1 Mg [facility]# [address]-09 Reviewed 10/23/2015 12:00 AM Depo-Medrol, Per 80 Mg [facility]#[address]-02 Reviewed 07/26/2011 12:00 AM X-RAY EXAM OF ABDOMEN Reviewed 11/21/2015 12:00 AM Orthopedics Consultation Reviewed 11/21/2015 12:00 AM Physical Therapy Consultation Reviewed 12/20/2015 12:00 AM EXTREMITY STUDY Reviewed 10/12/2011 12:00 AM EXTREMITY STUDY Reviewed 05/10/2016 12:00 AM CONTRAST X-RAY OF SHOULDER Reviewed 07/09/2016 12:00 AM PNEUMOCOCCAL VACC 13 RIP IM Reviewed 08/08/2016 12:00 AM Decadron, Per 1 Mg [facility]# [address]-06 Reviewed 08/08/2016 12:00 AM Depo-Medrol, Per 80 Mg [facility]#[address]-05 Reviewed 01/01/2012 12:00 AM AIRWAY INHALATION TREATMENT Reviewed 01/01/2012 12:00 AM Rocephin 1 gm [facility]#[address]-09 Reviewed 01/16/2012 12:00 AM DRAIN/INJ JOINT/BURSA W/O US Reviewed 01/16/2012 12:00 AM Kenalog per 10Mg [facility]#[address]-41(Srinath) Reviewed 09/26/2016 12:00 AM CHEST X-RAY 2VW [...] 12:00 AM SYNVISC, Per 1 Mg (2ml) [facility] [address]-08 Reviewed 06/05/2012 12:00 AM DRAIN/INJ JOINT/BURSA W/O US Reviewed 06/05/2012 12:00 AM SYNVISC, Per 1 Mg (2ml) [facility] [address]-63 Reviewed 06/12/2012 12:00 AM DRAIN/INJ JOINT/BURSA W/O US Reviewed 06/12/2012 12:00 AM SYNVISC, Per 1 Mg (2ml) [facility] [address]-33 Reviewed 07/16/2012 12:00 AM Hepatobiliary ductal system imaging with functional assessment Reviewed 07/16/2012 12:00 AM Decadron 8 mg [facility]#[id number] Reviewed 07/16/2012 12:00 AM Depo-Medrol 80mg [facility]#[id number] Reviewed 07/16/2012 12:00 AM COMPREHEN METABOLIC PANEL Reviewed 07/16/2012 12:00 AM LIPID PANEL Reviewed 07/16/2012 12:00 AM Flu Injection 3 Years And Above [facility]# [address]-41 RHC Reviewed 08/19/2012 12:00 AM METABOLIC PANEL TOTAL CA Reviewed 12/21/2009 12:[address] ABDOMEN W/O & W/DYE Reviewed 10/02/2012 12:00 AM CHEST X-RAY 2VW FRONTAL&LATL Reviewed 10/09/2012 12:00 AM Decadron 8 mg [facility]#[id number] Reviewed 10/09/2012 12:00 AM Depo-Medrol 80mg [facility]#27795127901 Reviewed 12/09/2012 12:00 AM CHEST X-RAY 2VW [...] 12:00 AM SYNVISC-ONE, Per 1 Mg (6ml) [facility] [address]-35 Reviewed 02/26/2013 12:00 AM Physical Therapy Reviewed 02/26/2013 12:[address] NECK SPINE W/O & W/DYE Reviewed 04/07/2013 12:00 AM INJECT TRIGGER POINTS 3/> Reviewed 04/07/2013 12:00 AM Kenalog per 10Mg [facility]#[address]-31(Srinath) Reviewed 07/21/2013 12:00 AM CHEST X-RAY 2VW FRONTAL&LATL Reviewed 07/21/2013 12:00 AM Decadron 8 mg [facility]# [address]-90 Reviewed 07/21/2013 12:00 AM Depo-Medrol 80 mg [facility]#[address]-84 Reviewed 07/21/2013 12:00 AM Rocephin 500 mg [facility]#5129-4875-41 Reviewed 09/22/2013 12:00 AM CHEST X-RAY 2VW FRONTAL&LATL Reviewed 10/29/2013 12:00 AM X-RAY EXAM OF ABDOMEN Reviewed 12/08/2013 12:00 AM THER/PROPH/DIAG INJ SC/IM Reviewed 12/08/2013 12:00 AM Decadron, Per 1 Mg [facility]# [address]-76 Reviewed 12/08/2013 12:00 AM Depo-Medrol, Per 80 Mg [facility]#2532-3532-44 Reviewed 12/08/2013 12:00 AM CHEST X-RAY 2VW [...] Reviewed 01/05/2014 12:00 AM Decadron 8 mg [facility]# [address]-53 Reviewed 01/05/2014 12:00 AM Depo-Medrol 80 mg [facility]#[address]-57 Reviewed 01/05/2014 12:00 AM Rocephin 1 gram [facility]#7011-8061-77 Reviewed 03/15/2010 12:00 AM PROTHROMBIN TIME Reviewed [...] Reviewed 09/28/2010 12:00 AM Kenalog per 10Mg [facility]#[address]-66(Srinath) Reviewed 05/05/2014 12:00 AM DRAIN/INJ JOINT/BURSA W/O US Reviewed 05/05/2014 12:00 AM SYNVISC-ONE, Per 1 Mg (6ml) [facility] [address]-50 Reviewed 05/06/2014 12:00 AM COMPREHEN METABOLIC PANEL [...] Reviewed 11/07/2010 12:00 AM Rocephin 500 mg [facility]#[address]-96 Reviewed 07/14/2014 12:00 AM Fluzone MEDICARE Only Reviewed 11/29/2010 12:00 AM INJECT TRIGGER POINTS 3/> Reviewed 11/29/2010 12:00 AM Kenalog per 10Mg [facility]#[address]-46(Srinath) Reviewed 07/14/2014 12:00 AM Decadron injection Reviewed [...] Vis Given Vis Pub CVX Pneumococcal 07/09/2016 Emily [facility] Prevnar 13 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 07/09/2016 07/28/2015 133 History [...] 13 2010 3:21PM Pain in joint; Knee,right George 30 2010 11:15AM 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, right 03/17/2017 Pain in joint; Knee,right Sep 14 2010 [...] knee Sep 6 2011 9:42AM Osteoarthritis, knee Sep 13 2011 9:44AM Osteoarthritis, knee Sep 2011 9:54AM Abdominal Pain, RLQ Jul 16 2012 [...] Obstructive Pulmonary Disease Apr 03 2017 8:17AM Payers Insurance Name Company Name Plan Name Plan Number Policy Number Policy Group Number Start Date Medicare RHC Medicare RHC [id number] N/A [employer] [place] [employer] [place] [id number] N/A [place] [employer] Medicare [place] [employer] Ins [phone] N/A [place] Medical Assistance [facility] Medical Assistance Prog [id number] N/A Medicare Part B Medicare Of [place] [id number] Friday, 2008 Medicare Part A Medicare Part A [id number] N/A [facility] RHC Comm [id number] Wednesday, 2015 [employer] - R[place] - [place] [employer] - [place] [id number] Wednesday, 2015 Medicare Part A Medicare - Lab/Xray [id number] N/A History of Encounters Visit Date Visit Type Provider 04/03/2017 Office visit Melecio Jaja DO 03/28/2017 Office visit Melecio Jaja DO 03/11/2017 Office visit Melecio Jaja DO 02/22/2017 Office visit Melecio Jaja DO 02/05/2017 Office visit Melecio Jaja DO 2017 Hospital Rasta Mckeon MD 2017 Hospital Ama Barrios MD 01/09/2017 Office visit Melecio Jaja DO 01/01/2017 [facility] Seth Devlin DO 12/31/2016 [facility] Rasta Mckeon MD 12/31/2016 Hospital Ama Barrios MD 12/21/2016 Office visit Melecio Jaja DO 11/20/2016 Office visit Melecio Jaja DO 11/05/2016 Office visit Melecio Jaja DO 10/23/2016 Office visit Melecio Jaja DO 10/10/2016 Office visit Melecio Jaja DO 09/26/2016 Office visit Melecio Jaja DO 08/28/2016 Office visit Melecio Jaja DO 08/08/2016 Office visit Melecio Jaja DO 07/09/2016 Office visit Melecio Wilkinson DO 07/06/2016 Hospital Ama Barrios MD 07/06/2016 Hospital David Paul MD 07/05/2016 Surgery Ama Barrios MD 07/03/2016 Laboratory Ama Barrios MD 06/07/2016 Office visit Melecio Jaja DO 05/03/2016 Office visit Melecio Jaja DO 04/11/2016 Office visit Melecio Jaja DO 02/17/2016 Office visit Melecio Jaja DO 01/19/2016 Office visit Melecio Jaja DO 12/20/2015 Office visit Melecio Jaja DO 11/21/2015 Office visit Melecio Jaja DO 10/17/2015 Office visit Melecio Jaja DO 09/26/2015 Office visit Melecio Wilkinson DO [...] visit Katty CRAIG 01/13/2015 Office visit Melecio Cruzte DO 01/12/2015 Office visit Katty CRAIG 12/16/2014 [facility] Alfa Platt MD 12/14/2014 Voided Melecio Jaja DO 12/08/2014 Office visit Alfa Platt MD 12/08/2014 Office visit Melecio Jaja DO 12/07/2014 Nurse visit Riri Salazar MD 12/02/2014 [facility] Alfa Platt MD 12/02/2014 [facility] Magi Powers MD 11/29/2014 [facility] Magi Powers MD 11/29/2014 Voided Katty CRAIG 11/11/2014 Office visit 11/11/2014 Office visit Katty CRAIG 11/11/2014 Office visit Melecio Willhite DO 10/14/2014 Office visit Katty CRAIG 09/14/2014 Office visit Katty CRAIG 09/08/2014 Hospital Ama Barrios MD 09/07/2014 Office visit Melecio Jaja DO 08/16/2014 Nurse visit Katty Jefferson RESIZER OPERATOR 07/19/2014 Office visit Katty DURÁNP 07/14/2014 Office visit Melecio Jaja DO 06/21/2014 Office visit Katty DURÁNP 05/20/2014 Office visit Melecio Jaja DO 05/14/2014 Office visit Melecio Jaja DO 05/05/2014 Office visit Katty CRAIG 04/26/2014 Office visit Katty CRAIG 03/24/2014 Office visit Katty CRAIG 02/24/2014 Office visit Katty DURÁNP 01/05/2014 Office visit Melecio Jaja DO 12/23/2013 Office visit Katty CRAIG 12/23/2013 Office visit Melecio Wilkinson DO 12/18/2013 Office visit Janis Navarrete PATCH MACHINE OPERATOR 12/08/2013 Office visit Janis Navarrete PATCH MACHINE OPERATOR 11/25/2013 Office visit Katty CRAIG 10/29/2013 Office [...] Barrios MD 12/09/2012 Office visit Stephanie Richardson APRN 11/26/2012 Office visit Gorge Yo MD 10/30/2012 [facility] Gorge Yo MD 10/29/2012 Office [...] 05/14/2012 Office visit Gorge Yo MD 05/12/2012 [facility] DO 05/11/2012 [facility] DO 03/13/2012 Office visit Gorge Yo [...] 03/05/2011 Office visit Melecio Wilkinson DO 02/06/2011 [facility] Gorge Yo MD 01/08/2011 Office visit Melecio Wilkinson DO 12/27/2010 Office visit Gorge Yo MD 11/29/2010 Office visit Gorge Yo MD 11/07/2010 Office visit Melecio Wilkinson DO 09/28/2010 Office visit Gorge Yo MD 09/05/2010 [facility] Gorge Yo MD 08/28/2010 Office [...]
[2018-01-22] MEDS ORDERED: BACITRACIN INJECTION 50,000 UNIT, SODIUM CHLORIDE 0.9% IRRIGATIO 500 ML IR ONE ×2 (10:30)
[2018-01-22] MEDS ORDERED: ceFAZolin 1,000 MG (ANCEF) VIAL IV ONE (10:30)
--- OUTSIDE RECORDS SUMMARY | 2018-01-22 10:33 | XMS REPORT ---
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 Name Role Phone Melecio Wilkinson PCP Unavailable [...] oral route once daily for 90 days magnesium oxide 400 mg oral tablet take [...] daily at the same time each day albuterol sulfate 2.5 mg /3 mL (0.083 %) inhalation solution for nebulization 05/07/2017 USE 1 VIAL IN NEBULIZER FOUR TIMES DAILY omeprazole 40 mg oral capsule,delayed release(DR/EC) 05/21/2017 09/18/2017 TAKE 1 CAPSULE BY MOUTH TWICE DAILY Lyrica 50 mg oral capsule 06/06/2017 take 1 capsule (50 mg) by oral route 2 times per day zolpidem 10 mg oral tablet 06/20/2017 08/19/2017 take 1 tablet (10 mg) by oral route once daily at bedtime for 30 days oxycodone 30 mg oral tablet,oral only,ext.rel.12 hr 07/08/2017 08/07/2017 take 1 tablet (30 mg) by oral route every 8 hours for 30 days clonidine HCl 0.2 mg oral tablet 07/18/2017 [...] mg) by oral route every 8 hours oxycodone 20 mg oral tablet 07/26/2017 08/25/2017 take 1 tablet by oral route q6h prn for 30 days Name Start Date Expiration [...] for 30 days Discontinued by Hospitalist at [facility] niacin 500 mg oral tablet 10/10/2016 take [...] oral route once daily Acute renal failure Levaquin 500 mg oral tablet 05/21/2017 06/06/2017 take 1 tablet (500 mg) by oral route once daily for 10 days guaifenesin 600 mg oral tablet extended release 12hr 05/21/2017 06/06/2017 take 1 tablet (600 mg) by oral route every 12 hours as needed Problem List Description Status Onset SI joint [...] HC BMI BSA BMI Percentile O2 Sat(%) 07/22/2017 3:11:00 PM 136 mmHg 80 mmHg [...] 07/11/2015 12:00 AM Kenalog, Per 10 Mg [facility]#0888-4028-70 Reviewed 12/07/2014 12:00 AM OFFICE/OUTPATIENT VISIT EST Reviewed 06/19/2011 12:00 AM DRAIN/INJ JOINT/BURSA W/O US Reviewed 06/19/2011 12:00 AM Kenalog 40 Mg Im-Nd#3016-9154-42 Reviewed 08/25/2015 12:00 AM OFFICE/OUTPATIENT VISIT EST Reviewed 08/23/2015 12:00 AM Decadron, Per 1 Mg ND# [address]-91 Reviewed 08/23/2015 12:00 AM Depo-Medrol, Per 80 Mg ND#[address]-40 Reviewed 09/07/2015 12:00 AM X-RAY EXAM L-S [...] 10/23/2015 12:00 AM Decadron, Per 1 Mg [facility]# [address]-41 Reviewed 10/23/2015 12:00 AM Depo-Medrol, Per 80 Mg [facility]#[address]-95 Reviewed 07/26/2011 12:00 AM X-RAY EXAM OF ABDOMEN Reviewed 11/21/2015 12:00 AM Orthopedics Consultation Reviewed 11/21/2015 12:00 AM Physical Therapy Consultation Reviewed 12/20/2015 12:00 AM EXTREMITY STUDY Reviewed 10/12/2011 12:00 AM EXTREMITY STUDY Reviewed 05/10/2016 12:00 AM CONTRAST X-RAY OF SHOULDER Reviewed 07/09/2016 12:00 AM PNEUMOCOCCAL VACC 13 RIP IM Reviewed 08/08/2016 12:00 AM Decadron, Per 1 Mg [facility]# [address]-95 Reviewed 08/08/2016 12:00 AM Depo-Medrol, Per 80 Mg [facility]#[address]-90 Reviewed 01/01/2012 12:00 AM AIRWAY INHALATION TREATMENT Reviewed 01/01/2012 12:00 AM Rocephin 1 gm [facility]#[address]-57 Reviewed 01/16/2012 12:00 AM DRAIN/INJ JOINT/BURSA W/O US Reviewed 01/16/2012 12:00 AM Kenalog per 10Mg Im-[facility]#[address]-71(Srinath) Reviewed 09/26/2016 12:00 AM CHEST X-RAY 2VW [...] 12:00 AM SYNVISC, Per 1 Mg (2ml) [facility] [address]-26 Reviewed 06/05/2012 12:00 AM DRAIN/INJ JOINT/BURSA W/O US Reviewed 06/05/2012 12:00 AM SYNVISC, Per 1 Mg (2ml) [facility] [address]-53 Reviewed 06/12/2012 12:00 AM DRAIN/INJ JOINT/BURSA W/O US Reviewed 06/12/2012 12:00 AM SYNVISC, Per 1 Mg (2ml) [facility] [address]-02 Reviewed 06/06/2017 12:00 AM Decadron 4mg Injection Reviewed 06/06/2017 12:00 AM Depo-Medrol 40mg Injection Reviewed 06/06/2017 12:[address] ABD & PELV 1/> REGNS Reviewed 07/16/2012 12:00 AM Hepatobiliary ductal system imaging with functional assessment Reviewed 07/16/2012 12:00 AM Decadron 8 mg [facility]#[id number] Reviewed 07/16/2012 12:00 AM Depo-Medrol 80mg [facility]#[id number] Reviewed 07/16/2012 12:00 AM COMPREHEN METABOLIC PANEL Reviewed 07/16/2012 12:00 AM LIPID PANEL Reviewed 07/16/2012 12:00 AM Flu Injection 3 Years And Above [facility]# [address]-85 RHC Reviewed 08/19/2012 12:00 AM METABOLIC PANEL TOTAL CA Reviewed 12/21/2009 12:[address] ABDOMEN W/O & W/DYE Reviewed 10/02/2012 12:00 AM CHEST X-RAY 2VW FRONTAL&LATL Reviewed 10/09/2012 12:00 AM Decadron 8 mg [facility]#[id number] Reviewed 10/09/2012 12:00 AM Depo-Medrol 80mg [facility]#[id number] Reviewed 12/09/2012 12:00 AM CHEST X-RAY 2VW [...] 12:00 AM SYNVISC-ONE, Per 1 Mg (6ml) [facility] [address]-57 Reviewed 02/26/2013 12:00 AM Physical Therapy Reviewed 02/26/2013 12:[address] NECK SPINE W/O & W/DYE Reviewed 04/07/2013 12:00 AM INJECT TRIGGER POINTS 3/> Reviewed 04/07/2013 12:00 AM Kenalog per 10Mg [facility]#[address]-14(Srinath) Reviewed 07/21/2013 12:00 AM CHEST X-RAY 2VW FRONTAL&LATL Reviewed 07/21/2013 12:00 AM Decadron 8 mg [facility]# [address]-77 Reviewed 07/21/2013 12:00 AM Depo-Medrol 80 mg [facility]#[address]-46 Reviewed 07/21/2013 12:00 AM Rocephin 500 mg [facility]#5232[address]-00 Reviewed 09/22/2013 12:00 AM CHEST X-RAY 2VW FRONTAL&LATL Reviewed 10/29/2013 12:00 AM X-RAY EXAM OF ABDOMEN Reviewed 12/08/2013 12:00 AM THER/PROPH/DIAG INJ SC/IM Reviewed 12/08/2013 12:00 AM Decadron, Per 1 Mg [facility]# [address]-42 Reviewed 12/08/2013 12:00 AM Depo-Medrol, Per 80 Mg [facility]#6500[address]-76 Reviewed 12/08/2013 12:00 AM CHEST X-RAY 2VW [...] Reviewed 01/05/2014 12:00 AM Decadron 8 mg [facility]# [address]-14 Reviewed 01/05/2014 12:00 AM Depo-Medrol 80 mg [facility]#[address]-72 Reviewed 01/05/2014 12:00 AM Rocephin 1 gram [facility]#0775-[address]-03 Reviewed 03/15/2010 12:00 AM PROTHROMBIN TIME Reviewed [...] 09/28/2010 12:00 AM Kenalog per 10Mg [facility]#[address]-77(Srinath) Reviewed 05/05/2014 12:00 AM DRAIN/INJ JOINT/BURSA W/O US Reviewed 05/05/2014 12:00 AM SYNVISC-ONE, Per 1 Mg (6ml) [facility] [address]-51 Reviewed 05/06/2014 12:00 AM COMPREHEN METABOLIC PANEL [...] Reviewed 11/07/2010 12:00 AM Rocephin 500 mg [facility]#[address]-31 Reviewed 07/14/2014 12:00 AM Fluzone MEDICARE Only Reviewed 11/29/2010 12:00 AM INJECT TRIGGER POINTS 3/> Reviewed 11/29/2010 12:00 AM Kenalog per 10Mg [facility]#[address]-66(Srinath) Reviewed 07/14/2014 12:00 AM Decadron injection Reviewed [...] Given Vis Pub CVX Pneumococcal 07/09/2016 Emily DOHERTY Prevnar 13 [id number] Intramuscular Right Deltoid 07/09/2016 07/28/2015 133 History [...] Pain in joint; Knee,right George 2010 11:15AM Carcinoma in situ of bronchus [...] Osteoarthritis, knee Sep 2011 9:42AM Osteoarthritis, knee Sep 13 2011 9:44AM Osteoarthritis, knee Jun 12 [...] Disease Feb 2013 9:08AM Congestive Heart Failure Oct 29 2013 9:08AM Hypertension Oct 29 2013 9:08AM Diabetes Mellitus, Type II Oct 29 2013 9:08AM Gastroenteritis, Noninfectious Oct 29 2013 9:08AM Lumbar spondylosis Nov 25 2013 [...] 11 2014 2:04PM Lumbar degenerative disc disease Fe2014 2:04PM Lumbar Radiculitis Feb 2014 2:04PM Cervicalgia b 2014 2:04PM Muscle Spasm b 2014 2:04PM Pain in joint; Knee,right Nov 11 2014 2:04PM Cervical radiculopathy Nov 11 2014 2:04PM Myofascial pain Feb 2014 2:47PM Cervical Spinal stenosis Feb 2014 2:47PM Chronic pain syndrome Dec 07 [...] Nausea and vomiting Jul 22 2017 3:13PM Payers Insurance Name Company Name Plan Name Plan Number Policy Number Policy Group Number Start Date Medicare RHC Medicare RHC [id number] N/A [employer] [place] State Plan [facility] [place] [facility] [id number] N/A [employer] [place] Life Medicare [facility] Life Ins [id number] N/A [place] Medical Assistance [facility] Medical [facility] Prog [id number] N/A Medicare Part B Medicare [place] [id number] Friday, 2008 Medicare Part A Medicare Part A [id number] N/A [facility] - RHC - [facility] [place] [facility] RH Comm [id number] Wednesday, 2015 [employer] - [place] [employer] [place] [id number] Wednesday, 2015 Medicare Part A Medicare - Lab/Xray [id number] N/A History of Encounters Visit Date Visit Type Provider 07/22/2017 Office visit Melecio Wilkinson DO 06/06/2017 Office visit Melecio Wilkinson DO 04/03/2017 Office visit Melecio Wilkinson DO 03/28/2017 Office visit Melecio Wilkinson DO 03/11/2017 Office visit Melecio Wilkinson DO 03/05/2017 [facility] Ama Barrios MD 02/22/2017 Office visit Melecio Wilkinson DO 02/05/2017 Office visit Melecio Wilkinson DO 2017 [facility] Rasta Mckeon MD 2017 Hospital Ama Barrios MD 01/09/2017 Office visit Melecio Jaja DO 01/01/2017 Hospital Seth Devlin DO 12/31/2016 Hospital Rasta Mckeon MD 12/31/2016 Hospital Ama [...] Melecio Jaja DO 09/26/2015 Office visit Melecio Jaja DO 09/07/2015 Office visit Katty CRAIG 08/25/2015 [...] visit Katty CRAIG 04/08/2015 Office visit Melecio Cruzte DO 04/07/2015 Voided Melecio Jaja DO 03/29/2015 Office visit Katty CRAIG 03/28/2015 Office visit Melecio [place] DO 03/15/2015 Office visit Katty CRAIG 02/28/2015 Office visit Melecio Jaja DO 02/17/2015 Office visit Melecio Jaja DO 02/17/2015 Office visit Katty CRAIG 01/19/2015 Office visit Katty CRAIG 01/13/2015 Office visit Melecio [place] DO 01/12/2015 Office visit Katty CRAIG 12/16/2014 [facility] Alfa Platt MD 12/14/2014 Voided Melecio Jaja DO 12/08/2014 Office visit Alfa Platt MD 12/08/2014 Office visit Melecio Jaja DO 12/07/2014 Nurse visit Riri Salazar MD 12/02/2014 [facility] Alfa Platt MD 12/02/2014 [facility] Magi Powers MD 11/29/2014 [facility] Magi Powers MD 11/29/2014 Voided Katty CRAIG 11/11/2014 Office visit 11/11/2014 Office visit Katty CRAIG 11/11/2014 Office visit Melecio Jaja DO 10/14/2014 Office visit Katty CRAIG 09/14/2014 Office visit Katty CRAIG 09/08/2014 [facility] Ama Barrios MD 09/07/2014 Office visit Melecio Jaja DO 08/16/2014 Nurse visit Katty CRAIG 07/19/2014 Office visit Katty CRAIG 07/14/2014 Office visit Melecio Wilkinson DO 06/21/2014 Office visit Katty CRAIG 05/20/2014 Office visit Mleecio Wilkinson DO 05/14/2014 Office visit Melecio Wilkinson DO 05/05/2014 Office visit Katty CRAIG 04/26/2014 Office visit Katty Jefferson CHAR FILTER TANK TENDER HEAD 03/24/2014 Office visit Katty Jefferson CHAR FILTER TANK TENDER HEAD 02/24/2014 Office visit Katty Jefferson CHAR FILTER TANK TENDER HEAD 01/05/2014 Office visit Melecio Wilkinson DO 12/23/2013 Office visit Katty Minerva Jefferson CHAR FILTER TANK TENDER HEAD 12/23/2013 Office visit Melecio Wilkinson DO 12/18/2013 Office visit Janis Navarrete LEARNING DESIGNER 12/08/2013 Office visit Janis Navarrete LEARNING DESIGNER 11/25/2013 Office visit Katty Jefferson CHAR FILTER TANK TENDER HEAD 10/29/2013 Office visit Melecio Wilkinson DO 09/22/2013 Office visit Janis Navarrete LEARNING DESIGNER 07/28/2013 Office visit Katty Jefferson CHAR FILTER TANK TENDER HEAD 07/21/2013 Office visit Melecio Wilkinson DO 07/08/2013 Office visit Katty DURÁNP 05/06/2013 Office visit Melecio Wilkinson DO 04/07/2013 Office visit Gorge Yo MD 02/26/2013 Office visit Melecio Wilkinson DO 01/29/2013 Office visit Gorge Yo MD 01/06/2013 Office visit Gorge Yo MD 12/09/2012 [facility] Ama Barrios MD 12/09/2012 Office visit Stephanie Richardson LEARNING DESIGNER 11/26/2012 Office visit Gorge Yo MD 10/30/2012 [facility] Gorge Yo MD 10/29/2012 Office [...] 05/14/2012 Office visit Gorge Yo MD 05/12/2012 [facility] DO 05/11/2012 [facility] DO 03/13/2012 Office visit Gorge Yo [...] 09/28/2010 Office visit Gorge Yo MD 09/05/2010 [facility] Gorge Yo MD 08/28/2010 Office [...] Procedures Gorge Yo MD 03/16/2010 Office visit Groge Yo MD 03/15/2010 Office visit Melecio Wilkinson [...]
--- OUTSIDE RECORDS SUMMARY | 2018-01-22 10:37 | XMS REPORT ---
Author Author Melecio Wilkinson [facility] Address [address] [place] [id number] Care Team Providers Care Rn Family Name Role Phone Melecio Wilkinson PCP Unavailable Allergies and Adverse Reactions Name Reaction Notes NO KNOWN DRUG ALLERGIES Plan of Treatment Planned Activity Comments Planned Date Planned Time Plan/Goal COMPREHEN METABOLIC PANEL 04/11/2016 12:00 AM LIPID PANEL 04/11/2016 12:00 AM GLYCOSYLATED HEMOGLOBIN TEST 04/11/2016 12:00 AM VITAMIN B-12 04/11/2016 12:00 AM COMPLETE CBC W/AUTO DIFF WBC 04/11/2016 12:00 AM AIRWAY INHALATION TREATMENT 01/01/2012 12:00 AM ELECTROCARDIOGRAM [...] capsule take 1 capsule by oral route midodrine 5 mg oral tablet 06/27/2015 take [...] 08/17/2015 TAKE 1 TABLET BY MOUTH DAILY lisinopril 20 mg oral tablet 12/08/2015 TAKE [...] per day with food for 90 days Singulair 10 mg oral tablet 05/03/2016 take 1 tablet (10 mg) by oral route once daily in the evening doxazosin 2 mg oral tablet 04/11/2016 10/08/2016 take 1 tablet (2 mg) by oral route once daily for 30 days sucralfate 1 gram oral tablet 05/02/2016 TAKE 1 TABLET BY MOUTH 30 MINUITES PRIOR TO MEALS AND AT BEDTIME Amitiza 24 mcg oral capsule 05/03/2016 take 1 capsule (24 mcg) by oral route 2 times per day with food and water fluticasone 50 mcg/actuation nasal spray,suspension 05/03/2016 inhale 1 spray (50 mcg) in each nostril by intranasal route 2 times per day Lyrica 50 mg oral capsule 05/07/2016 take 1 capsule (50 mg) by oral route 2 times per day zolpidem 10 mg oral tablet 06/29/2016 08/28/2016 take 1 tablet (10 mg) by oral route once daily at bedtime for 30 days oxycodone 30 mg oral tablet,oral only,ext.rel.12 hr 07/03/2016 take 1 tablet (30 mg) by oral route every 12 hours oxycodone 20 mg oral tablet 07/09/2016 08/08/2016 take 1 tablet by oral route every 4 to 6 hours for 30 days pain furosemide 20 mg oral tablet 07/10/2016 07/13/2016 take 1 tablet (20 mg) by oral route once daily for 3 days Name Start Date Expiration Date SIG [...] route every 12 hours for 7 days sulfamethoxazole-trimethoprim 800-160 mg oral tablet 06/07/2016 [...] for 30 days Discontinued by Hospitalist at [place] Augmentin 875-125 mg oral tablet 11/07/2010 03/05/2011 [...] route every 12 hours for 30 days [place] stoned Problem List Description Status Onset SI [...] HC BMI BSA BMI Percentile O2 Sat(%) 07/09/2016 9:53:00 AM 144 mmHg 80 mmHg [...] 07/11/2015 12:00 AM Kenalog, Per 10 Mg [facility]#4995-9466-55 Reviewed 06/19/2011 12:00 AM DRAIN/INJ JOINT/BURSA W/O US Reviewed 06/19/2011 12:00 AM Kenalog 40 Mg [facility]#0756-8679-05 Reviewed 08/25/2015 12:00 AM OFFICE/OUTPATIENT VISIT EST Reviewed 08/23/2015 12:00 AM Decadron, Per 1 Mg [facility]# [address]-26 Reviewed 08/23/2015 12:00 AM Depo-Medrol, Per 80 Mg [facility]#[address]-14 Reviewed 09/07/2015 12:00 AM X-RAY EXAM L-S [...] AM PNEUMOCOCCAL VACC 13 RIP IM Reviewed 01/01/2012 12:00 AM Rocephin 1 gm [facility]#[address]-57 Reviewed 01/16/2012 12:00 AM DRAIN/INJ JOINT/BURSA W/O US Reviewed 01/16/2012 12:00 AM Kenalog per 10Mg [facility]#[address]-07(Srinath) Reviewed 02/05/2012 12:[address] ABDOMEN W/O & W/DYE Reviewed 02/05/2012 12:[address] PELVIS W/O & W/DYE Reviewed 05/29/2012 12:00 AM DRAIN/INJ JOINT/BURSA W/O US Reviewed 05/29/2012 12:00 AM SYNVISC, Per 1 Mg (2ml) [facility] [address]-44 Reviewed 06/05/2012 12:00 AM DRAIN/INJ JOINT/BURSA W/O US Reviewed 06/05/2012 12:00 AM SYNVISC, Per 1 Mg (2ml) [facility] [address]-71 Reviewed 06/12/2012 12:00 AM DRAIN/INJ JOINT/BURSA W/O US Reviewed 06/12/2012 12:00 AM SYNVISC, Per 1 Mg (2ml) [facility] [address]-82 Reviewed 07/16/2012 12:00 AM Hepatobiliary ductal system imaging with functional assessment Reviewed 07/16/2012 12:00 AM Decadron 8 mg [facility]#[id number] Reviewed 07/16/2012 12:00 AM Depo-Medrol 80mg [facility]#[id number] Reviewed 07/16/2012 12:00 AM COMPREHEN METABOLIC PANEL Reviewed 07/16/2012 12:00 AM LIPID PANEL Reviewed 07/16/2012 12:00 AM Flu Injection 3 Years And Above [facility]# [address]-65 RHC Reviewed 08/19/2012 12:00 AM METABOLIC PANEL TOTAL CA Reviewed 12/21/2009 12:[address] ABDOMEN W/O & W/DYE Reviewed 10/02/2012 12:00 AM CHEST X-RAY 2VW FRONTAL&LATL Reviewed 10/09/2012 12:00 AM Decadron 8 mg [facility]#[id number] Reviewed 10/09/2012 12:00 AM Depo-Medrol 80mg [facility]#[id number] Reviewed 12/09/2012 12:00 AM CHEST X-RAY 2VW [...] 12:00 AM SYNVISC-ONE, Per 1 Mg (6ml) [facility] [address]-44 Reviewed 02/26/2013 12:[address] NECK SPINE W/O & W/DYE Reviewed 04/07/2013 12:00 AM INJECT TRIGGER POINTS 3/> Reviewed 04/07/2013 12:00 AM Kenalog per 10Mg [facility]#[address]-67(Srinath) Reviewed 07/21/2013 12:00 AM CHEST X-RAY 2VW FRONTAL&LATL Reviewed 07/21/2013 12:00 AM Decadron 8 mg [facility]# [address]-95 Reviewed 07/21/2013 12:00 AM Depo-Medrol 80 mg [facility]#[address]-40 Reviewed 07/21/2013 12:00 AM Rocephin 500 mg [facility]#3937-8011-06 Reviewed 09/22/2013 12:00 AM CHEST X-RAY 2VW FRONTAL&LATL Returned 10/29/2013 12:00 AM X-RAY EXAM OF ABDOMEN Reviewed 12/08/2013 12:00 AM THER/PROPH/DIAG INJ SC/IM Reviewed 12/08/2013 12:00 AM Decadron, Per 1 Mg [facility]# [address]-63 Reviewed 12/08/2013 12:00 AM Depo-Medrol, Per 80 Mg [facility]#0732-[address]-07 Reviewed 12/08/2013 12:00 AM CHEST X-RAY 2VW [...] Returned 01/05/2014 12:00 AM Decadron 8 mg [facility]# [address]-37 Reviewed 01/05/2014 12:00 AM Depo-Medrol 80 mg [facility]#[address]-13 Reviewed 01/05/2014 12:00 AM Rocephin 1 gram [facility]#8040-3039-07 Reviewed 03/15/2010 12:00 AM PROTHROMBIN TIME Reviewed [...] Reviewed 09/28/2010 12:00 AM Kenalog per 10Mg [facility]#[address]-97(Srinath) Reviewed 05/05/2014 12:00 AM DRAIN/INJ JOINT/BURSA W/O US Reviewed 05/05/2014 12:00 AM SYNVISC-ONE, Per 1 Mg (6ml) [facility] [address]-94 Reviewed 05/06/2014 12:00 AM COMPREHEN METABOLIC PANEL [...] Reviewed 11/07/2010 12:00 AM Rocephin 500 mg [facility]#[address]-16 Reviewed 07/14/2014 12:00 AM Fluzone MEDICARE Only Reviewed 11/29/2010 12:00 AM INJECT TRIGGER POINTS 3/> Reviewed 11/29/2010 12:00 AM Kenalog per 10Mg [facility]#[address]-80(Srinath) Reviewed 07/14/2014 12:00 AM Decadron injection Reviewed [...] UR 62.0 mg/dLCREAT UR RAND 177.0 mg/dL 07/06/2016 6:10 AM GLUCOSE 126.0 mg/dLSODIUM 139.0 mmol/LPOTASSIUM 3.90 mmol/ LCHLORIDE 105.0 mmol/LCO2 23.0 mmol/LBUN 21.0 mg/dLCREATININE 1.30 mg/dLSGOT/ AST 9.0 IU/LSGPT/ALT 7.0 IU/LALK PHOS 101.0 IU/LTOTAL PROTEIN 6.50 g/dLALBUMIN 3.20 g/dLTOTAL BILI 0.40 mg/dLCALCIUM 8.60 mg/dLeGFR 57 TROPONIN-I AD <0.04 ng/ mLWBC 13.8 RBC 3.99 HGB 10.80 g/dLHCT 34.10 %MCV 86.0 fLMCH 27.10 pgMCHC 31.70 g /dLRDW CV 16.60 %MPV 9.80 fLPLT 265 %NEUT 86.90 %%LYMP 4.90 %%MONO 7.40 %%EOS 0.0 %%BASO 0.10 %#NEUT 11.99 #LYMP 0.68 #MONO 1.02 #EOS 0.00 #BASO 0.01 GLUCOSE 126.0 mg/dLSODIUM 139.0 mmol/LPOTASSIUM 3.90 mmol/LCHLORIDE 105.0 mmol/LCO2 23.0 mmol/LBUN 21.0 mg/dLCREATININE 1.30 mg/dLCALCIUM 8.60 mg/dLeGFR 57 GLUCOSE 126.0 mg/dLSODIUM 139.0 mmol/LPOTASSIUM 3.90 mmol/LCHLORIDE 105.0 mmol/LCO2 23.0 mmol/LBUN 21.0 mg/dLCREATININE 1.30 mg/dLCALCIUM 8.60 mg/dLeGFR 57 07/06/2016 7:04 AM MAGNESIUM 1.60 mg/dLPHOSPHORUS 3.10 mg/dL 07/06/2016 7:05 AM TSH 0.370 uIU/mL History Of Immunizations Name Date Admin Mfg Name Mfg Code Trade Name Lot# Route Inj Vis Given Vis Pub CVX Pneumococcal 07/09/2016 Emily WAL Prevnar 13 [id number] Intramuscular Right Deltoid 07/09/2016 07/28/2015 133 History [...] Congestive Heart Failure Feb 2013 9:08AM Hypertension b 2013 9:08AM Diabetes Mellitus, Type II b 2013 9:08AM Gastroenteritis, Noninfectious Feb 6 2013 [...] 2016 9:29AM Hemoptysis Jun 07 2016 9:29AM Payers Insurance Name Company Name Plan Name Plan Number Policy Number Policy Group Number Start Date Medicare Part A Medicare C [id number] N/A [facility] [place] [facility] - [facility] State Plan [id number] Wednesday, 2015 Medicare Part A Medicare - Lab/Xray [id number] N/A [place] [employer] [place] [employer] [phone] N/A [place] Medical Assistance [facility] Medical Assistance Prog [id number] N/A Medicare Part B Medicare Of [place] [id number] Friday, February 22, 2008 Medicare Part A Medicare Part A [id number] N/A [facility] - [facility] - [facility] [id number] Wednesday, September 23, 2015 History of Encounters Visit Date Visit Type Provider 07/09/2016 Office visit Melecio Wilkinson DO 06/07/2016 Office visit Melecio Wilkinson DO 05/03/2016 Office visit Melecio Wilkinson DO 04/11/2016 Office visit Melecio Wilkinson DO 02/17/2016 Office visit Melecio Wilkinson DO 01/19/2016 Office visit Melecio Jaja DO [...] DO 01/12/2015 Office visit Katty CRAIG 12/16/2014 [facility] Alfa Platt MD 12/14/2014 Voided Melecio Jaja DO 12/08/2014 Office visit Alfa Platt MD 12/08/2014 Office visit Melecio Wilkinson DO 12/07/2014 Nurse visit Riri Salazar MD 12/02/2014 [facility] Alfa Platt MD 12/02/2014 [facility] Magi Powers MD 11/29/2014 [facility] Magi Powers MD 11/29/2014 Voided Katty CRAIG 11/11/2014 Office visit 11/11/2014 Office visit Katty CRAIG 11/11/2014 Office visit Melecio Wilkinson DO 10/14/2014 Office visit Katty CRAIG 09/14/2014 Office visit Katty CRAIG 09/08/2014 [facility] Ama Barrios MD 09/07/2014 Office visit Melecio Wilkinson DO 08/16/2014 Nurse visit Katty CRAIG 07/19/2014 Office visit Katty CRAIG 07/14/2014 Office visit Melecio Wilkinson DO 06/21/2014 Office visit Katty CRAIG 05/20/2014 Office visit Melecio Wilkinson DO 05/14/2014 Office visit Melecio Wilkinson DO 05/05/2014 Office visit Katty CRAIG 04/26/2014 Office visit Katty CRAIG 03/24/2014 Office visit Katty CRAIG 02/24/2014 Office visit Katty CRAIG 01/05/2014 Office visit Melecio Jaja DO 12/23/2013 Office visit Katty CRAIG 12/23/2013 Office visit Melecio Wilkinson DO 12/18/2013 Office visit Janis Navarrete APRN 12/08/2013 Office visit Janis Navarrete APRN 11/25/2013 Office visit Katty CRAIG 10/29/2013 Office [...] 01/06/2013 Office visit Gorge Yo MD 12/09/2012 [facility] Ama Barrios MD 12/09/2012 Office visit Stephanie Richardson APRN 11/26/2012 Office visit Gorge Yo MD 10/30/2012 [facility] Gorge Yo MD 10/29/2012 Office visit Gorge Yo MD 10/09/2012 Office visit Melecio Wilkinson DO 08/19/2012 Office visit Melecio Wilkisnon DO 08/04/2012 Office visit Melecio Wilkinson DO 07/24/2012 Office visit Gorge Yo MD 07/16/2012 Office visit Melecio Wilkinson DO 06/12/2012 Office visit Gorge Yo MD 06/05/2012 Office visit Gorge Yo MD 05/29/2012 Office visit Gorge Yo MD 05/19/2012 Office visit Melecio Wilkinson DO 05/14/2012 Office visit Gorge Yo MD 05/12/2012 [facility] DO 05/11/2012 [facility] DO 03/13/2012 Office visit Gorge Yo [...] 03/05/2011 Office visit Melecio Wilkinson DO 02/06/2011 [facility] Gorge Yo MD 01/08/2011 Office visit Melecio Wilkinson DO 12/27/2010 Office visit Gorge Yo MD 11/29/2010 Office visit Gorge Yo MD 11/07/2010 Office visit Melecio Wilkinson DO 09/28/2010 Office visit Gorge Yo MD 09/05/2010 [facility] Gorge Yo MD 08/28/2010 Office visit [...] MD 03/31/2010 Laboratory Alfonso Camacho MD 03/31/2010 [facility] Alfonso Camacho MD 03/21/2010 Procedures Gorge [...]
--- OUTSIDE RECORDS SUMMARY | 2018-01-22 10:41 | XMS REPORT ---
Author Author Melecio Wilkinson [facility] Address [address] [place] [phone] Care Team Providers Care Taxi Servicer Name Role Phone Melecio Wilkinson PCP Unavailable [...] EVERY DAY 30 MINUTES BEFORE A MEAL atorvastatin 40 mg oral tablet take 1 tablet (40 mg) by oral route once daily midodrine 5 mg oral tablet 06/27/2015 take [...] MINUITES PRIOR TO MEALS AND AT BEDTIME omeprazole 40 mg oral capsule,delayed release(DR/EC) 08/01/2016 TAKE 1 CAPSULE BY MOUTH TWICE DAILY methocarbamol 750 mg oral tablet 08/01/2016 TAKE 1 TABLET BY MOUTH EVERY SIX HOURS NEEDED digoxin 125 mcg oral tablet 08/01/2016 TAKE [...] 1 VIAL IN NEBULIZER FOUR TIMES DAILY allopurinol 100 mg oral tablet take 1 and 1/2 tablet (150 mg) by oral route once daily Singulair 10 mg oral tablet 10/26/2016 take 1 tablet (10 mg) by oral route once daily in the evening zolpidem 10 mg oral tablet 11/22/2016 01/21/2017 take 1 tablet (10 mg) by oral route once daily at bedtime for 30 days Lyrica 75 mg oral capsule 12/21/2016 06/19/2017 take 1 capsule (75 mg) by oral route 2 times per day for 30 days oxycodone 20 mg oral tablet 12/21/2016 01/20/2017 take 1 tablet by oral route q6h prn for 30 days oxycodone 30 mg oral tablet,oral only,ext.rel.12 hr 12/21/2016 01/20/2017 take 1 tablet (30 mg) by oral route every 8 hours Name Start Date Expiration Date SIG [...] days changed to Xalreto by Dr. Yesenia Lidoderm 5 % topical adhesive patch,medicated 02/08/2010 08/04/2012 [...] for 30 days Discontinued by Hospitalist at [place] niacin 500 mg oral tablet 10/10/2016 take [...] route every 12 hours for 30 days [place] guerita Amitiza 24 mcg oral capsule 05/03/2016 10/10/2016 [...] tablet (10 mg) daily for 2 days prednisone 10 mg oral tablet 12/21/2016 01/08/2017 take 1 tablet (10 mg) by oral route once daily Problem List Description Status Onset SI joint [...] HC BMI BSA BMI Percentile O2 Sat(%) 01/09/2017 8:32:00 AM 146 mmHg 88 mmHg 98 bpm 20 rpm 97.9 F 262 lbs 67 in 41.03 kg/m2 2.37 m2 98 % 12/21/2016 8:08:00 AM 128 mmHg 72 mmHg 76 bpm 20 rpm 97.2 F 245 lbs 67 in 38.372 kg/m 2.292 m 100 % 11/20/2016 10:28:00 AM 142 mmHg 76 mmHg 83 bpm 20 rpm 98.3 F 245 lbs 67 in 38.37 kg/m2 2.29 m2 99 % 11/05/2016 10:23:00 AM 118 mmHg 66 mmHg 79 bpm 18 rpm 97.5 F 244.25 lbs 67 in 38.2546 kg/m 2.2885 m 95 % 10/23/2016 2:26:00 PM 136 mmHg 80 mmHg 86 bpm 20 rpm 98 F 242 lbs 67 in 37.90 kg/m2 2.28 m2 98 % 10/10/2016 10:04:00 AM 128 mmHg 70 mmHg 68 bpm 20 rpm 98.2 F 246 lbs 67 in 38.5287 kg/m 2.2967 m 99 % 09/26/2016 8:45:00 AM 120 mmHg 66 mmHg 75 bpm 20 rpm 98 F 241 lbs 67 in 37.75 kg/m2 2.27 m2 98 % 08/28/2016 8:10:00 AM 139 mmHg 78 mmHg 84 bpm 20 rpm 97.6 F 251 lbs 74 in 32.2262 kg/m 2.4381 m 99 % 08/08/2016 10:15:00 AM 136 mmHg 74 mmHg 81 bpm 22 rpm 98.1 F 252 lbs 67 in 39.47 kg/m2 2.32 m2 96 % 07/09/2016 9:53:00 AM 144 mmHg 80 mmHg 90 bpm 20 rpm 98.1 F 261 lbs 67 in 40.878 kg/m 2.3657 m 95 % 06/07/2016 9:27:00 AM 144 mmHg 72 mmHg 78 bpm 20 rpm 97.9 F 248 lbs 67 in 38.84 kg/m2 2.31 m2 97 % 05/03/2016 2:37:00 PM 134 mmHg 78 mmHg 80 bpm 16 rpm 98.4 F 250 lbs 67 in 39.1551 kg/m 2.3153 m 98 % 04/11/2016 8:13:00 AM 166 mmHg 80 mmHg 63 bpm 22 rpm 98.1 F 256 lbs 67 in 40.09 kg/m2 2.34 m2 98 % 02/17/2016 9:56:00 AM 140 mmHg 92 mmHg 67 bpm 20 rpm 97.3 F 258 lbs 67 in 40.4081 kg/m 2.3521 m 98 % 01/19/2016 9:41:00 AM 162 mmHg 70 mmHg 70 bpm 16 rpm 96.8 F 254 lbs 67 in 39.78 kg/m2 2.33 m2 99 % 12/20/2015 1:42:00 PM 160 mmHg 84 mmHg 82 bpm 20 rpm 98.4 F 256 lbs 67 in 40.0949 kg/m 2.3429 m 97 % 11/21/2015 10:33:00 AM 152 mmHg 98 mmHg 86 bpm 22 rpm 97.3 F 259.5 lbs 67 in 40.64 kg/m2 2.36 m2 98 % 10/17/2015 2:38:00 PM 188 mmHg 102 mmHg 82 bpm 20 rpm 98.3 F 266 lbs 67 in 41.6611 kg/m 2.3882 m 93 % 09/26/2015 10:30:00 AM 136 mmHg 78 mmHg 80 bpm 18 rpm 98 F 265 lbs 67 in 41.50 kg/m2 2.38 m2 97 % 09/07/2015 8:30:00 AM 152 mmHg 96 mmHg 66 bpm 18 rpm 96.9 F 257.375 lbs 66 in 41.541 kg/m 2.3316 m 08/23/2015 9:51:00 AM 136 mmHg 76 mmHg 82 bpm 20 rpm 98.2 F 259 lbs 67 in 40.56 kg/m2 2.36 m2 98 % 08/08/2015 9:13:00 AM 140 mmHg 76 mmHg 78 bpm 20 rpm 98.1 F 259 lbs 67 in 40.5647 kg/m 2.3566 m 95 % 08/05/2015 8:58:00 AM 140 mmHg 82 mmHg 66 bpm 18 rpm 96.9 F 260 lbs 67 in 40.72 kg/m2 2.36 m2 07/11/2015 1:15:00 PM 144 mmHg 84 mmHg 71 bpm 20 rpm 96.6 F 263 lbs 67 in 41.1912 kg/m 2.3747 m 07/06/2015 2:39:00 PM 136 mmHg 84 mmHg 66 bpm 18 rpm 94.8 F 263 lbs 67 in 41.19 kg/m2 2.37 m2 06/27/2015 1:34:00 PM 98 mmHg 58 mmHg 80 bpm 22 rpm 98.3 F 263 lbs 67 in 41.1912 kg/m 2.3747 m 96 % 06/20/2015 2:12:00 PM 130 mmHg 76 mmHg 76 bpm 20 rpm 97.2 F 261.312 lbs 67 in 40.93 kg/m2 2.37 m2 97 % 06/15/2015 3:55:00 PM 130 mmHg 86 mmHg 72 bpm 18 rpm 97 F 268 lbs 67 in 41.9743 kg/m 2.3972 m 06/02/2015 10:51:00 AM 170 mmHg 100 mmHg 83 bpm 20 rpm 97.7 F 269.5 lbs 67 in 42.21 kg/m2 2.40 m2 97 % 05/16/2015 1:10:00 PM 162 mmHg 84 mmHg 70 bpm 18 rpm 97 F 272 lbs 67 in 42.6008 kg/m 2.415 m 05/16/2015 9:29:00 AM 180 mmHg 88 mmHg 80 bpm 22 rpm 97.5 F 272 lbs 67 in 42.60 kg/m2 2.42 m2 96 % 05/09/2015 9:39:00 AM 130 mmHg 72 mmHg 72 bpm 18 rpm 97.7 F 271.125 lbs 67 in 42.4637 kg/m 2.4111 m 04/26/2015 10:57:00 AM 148 mmHg 100 mmHg 82 bpm 18 rpm 97.8 F 275 lbs 67 in 43.07 kg/m2 2.43 m2 04/08/2015 8:01:00 AM 114 mmHg 88 mmHg 90 bpm 20 rpm 98.5 F 273 lbs 67 in 42.7574 kg/m 2.4195 m 98 % 03/29/2015 10:16:00 AM 142 mmHg 90 mmHg 66 bpm 20 rpm 96.7 F 273 lbs 67 in 42.76 kg/m2 2.42 m2 03/28/2015 9:31:00 AM 130 mmHg 72 mmHg 82 bpm 20 rpm 98.2 F 273 lbs 67 in 42.7574 kg/m 2.4195 m 99 % 03/15/2015 10:00:00 AM 100 mmHg 58 mmHg 80 bpm 18 rpm 97.4 F 273 lbs 67 in 42.76 kg/m2 2.42 m2 02/28/2015 4:15:00 PM 110 mmHg 76 mmHg 81 bpm 16 rpm 97 F 281.5 lbs 67 in 44.0887 kg/m 2.4568 m 96 % 02/17/2015 1:39:00 PM 142 mmHg 78 mmHg 84 bpm 18 rpm 98.3 F 284 lbs 67 in 44.48 kg/m2 2.47 m2 97 % 02/17/2015 1:03:00 PM 122 mmHg 74 mmHg 64 bpm 18 rpm 96.8 F 284 lbs 67 in 44.4802 kg/m 2.4677 m 01/19/2015 3:51:00 PM 128 mmHg 84 mmHg 76 bpm 20 rpm 96.4 F 286 lbs 70 in 41.04 kg/m2 2.53 m2 01/13/2015 1:38:00 PM 142 mmHg 82 mmHg 80 bpm 22 rpm 97.7 F 288 lbs 67 in 45.1067 kg/m 2.485 m 01/12/2015 9:20:00 AM 136 mmHg 84 mmHg 71 bpm 18 rpm 96.5 F 290 lbs 67 in 45.42 kg/m2 2.49 m2 12/08/2014 11:00:00 AM 145 mmHg 90 mmHg 86 bpm 18 rpm 97.6 F 294.5 lbs 67 in 46.1247 kg/m 2.5129 m 94 % 12/08/2014 8:46:00 AM 156 mmHg 82 mmHg 80 bpm 20 rpm 98 F 294 lbs 67 in 46.05 kg/m2 2.51 m2 97 % 11/11/2014 1:59:00 PM 144 mmHg 80 mmHg 88 bpm 20 rpm 97.7 F 299 lbs 67 in 46.8295 kg/m 2.5321 m 11/11/2014 8:21:00 AM 188 mmHg 78 mmHg 87 bpm 22 rpm 97.9 F 300 lbs 67 in 46.99 kg/m2 2.54 m2 91 % 10/14/2014 1:59:00 PM 132 mmHg 72 mmHg 88 bpm 18 rpm 97.4 F 301 lbs 67 in 47.1428 kg/m 2.5405 m 09/14/2014 10:01:00 AM 124 mmHg 70 mmHg 100 bpm 22 rpm 97.4 F 309 lbs 67 in 48.40 kg/m2 2.57 m2 09/07/2014 8:56:00 AM 142 mmHg 84 mmHg 94 bpm 22 rpm 98.3 F 307 lbs 67 in 48.0825 kg/m 2.5657 m 93 % 07/19/2014 10:24:00 AM 124 mmHg 80 mmHg 82 bpm 16 rpm 97.2 F 309 lbs 67 in 48.40 kg/m2 2.57 m2 07/14/2014 9:28:00 AM 188 mmHg 78 mmHg 80 bpm 20 rpm 98.2 F 312 lbs 67 in 48.8656 kg/m 2.5865 m 96 % 06/21/2014 10:05:00 AM 144 mmHg 94 mmHg 82 bpm 16 rpm 95.7 F 309 lbs 67 in 48.40 kg/m2 2.57 m2 05/20/2014 9:47:00 AM 130 mmHg 66 mmHg 80 bpm 20 rpm 98.2 F 313 lbs 67 in 49.0222 kg/m 2.5907 m 90 % 05/14/2014 9:31:00 AM 138 mmHg 68 mmHg 92 bpm 20 rpm 97.3 F 310 lbs 67 in 48.55 kg/m2 2.58 m2 93 % 04/26/2014 2:30:00 PM 162 mmHg 94 mmHg 78 bpm 22 rpm 98.1 F 314 lbs 67 in 49.1788 kg/m 2.5948 m 03/24/2014 2:11:00 PM 140 mmHg 80 mmHg 84 bpm 16 rpm 97.5 F 311 lbs 67 in 48.71 kg/m2 2.58 m2 02/24/2014 1:07:00 PM 108 mmHg 70 mmHg 84 bpm 16 rpm 95 F 309.375 lbs 67 in 48.4545 kg/m 2.5756 m 01/05/2014 1:43:00 PM 166 mmHg 80 mmHg 86 bpm 26 rpm 97.8 F 308 lbs 67 in 48.24 kg/m2 2.57 m2 94 % 12/23/2013 11:21:00 AM 122 mmHg 80 mmHg 96 bpm 22 rpm 98.1 F 304 lbs 67 in 47.6126 kg/m 2.5531 m 97 % 12/23/2013 10:05:00 AM 118 mmHg 80 mmHg 72 bpm 16 rpm 96.5 F 305.375 lbs 67 in 47.83 kg/m2 2.56 m2 12/18/2013 9:53:00 AM 100 mmHg 80 mmHg 91 bpm 22 rpm 97.4 F 306 lbs 67 in 47.9259 kg/m 2.5615 m 97 % 12/08/2013 3:32:00 PM 126 mmHg 64 mmHg 88 bpm 18 rpm 98.7 F 310.5 lbs 67 in 48.63 kg/m2 2.58 m2 97 % 11/25/2013 8:49:00 AM 124 mmHg 90 mmHg 82 bpm 16 rpm 97.8 F 313.375 lbs 67 in 49.081 kg/m 2.5922 m 10/29/2013 9:06:00 AM 136 mmHg 80 mmHg 80 bpm 22 rpm 98.2 F 313 lbs 67 in 49.02 kg/m2 2.59 m2 100 % 09/22/2013 9:19:00 AM 122 mmHg 80 mmHg 84 bpm 24 rpm 97.9 F 313 lbs 64 in 53.7258 kg/m 2.532 m 97 % 07/28/2013 9:05:00 AM 108 mmHg 80 mmHg 66 bpm 14 rpm 97.4 F 314 lbs 67 in 49.18 kg/m2 2.59 m2 07/21/2013 9:47:00 AM 136 mmHg 70 mmHg 84 bpm 20 rpm 98.1 F 311 lbs 67 in 48.709 kg/m 2.5824 m 98 % 07/08/2013 8:43:00 AM 124 mmHg 82 mmHg 72 bpm 16 rpm 95.8 F 313 lbs 67 in 49.02 kg/m2 2.59 m2 05/06/2013 9:40:00 AM 138 mmHg 78 mmHg 70 bpm 16 rpm 98 F 318 lbs 67 in 49.8053 kg/m 2.6113 m 04/07/2013 9:44:00 AM 140 mmHg 82 mmHg 84 bpm 16 rpm 95.4 F 325 lbs 67 in 50.90 kg/m2 2.64 m2 02/26/2013 8:50:00 AM 150 mmHg 88 mmHg 78 bpm 18 rpm 98 F 314 lbs 67 in 49.1788 kg/m 2.5948 m 01/06/2013 9:14:00 AM 112 mmHg 78 mmHg 84 bpm 18 rpm 97.3 F 314.375 lbs 67 in 49.24 kg/m2 2.60 m2 12/09/2012 10:20:00 AM 102 mmHg 68 mmHg 86 bpm 18 rpm 97.5 F 311.375 lbs 97 % 11/26/2012 9:48:00 AM 112 mmHg 90 mmHg 84 bpm 18 rpm 98.3 F 308.5 lbs 67 in 48.32 kg/m2 2.57 m2 10/29/2012 8:43:00 AM 134 mmHg 88 mmHg 88 bpm 18 rpm 97.8 F 313.5 lbs 67 in 49.1005 kg/m 2.5927 m 10/09/2012 9:33:00 AM 110 mmHg 60 mmHg 88 bpm 20 rpm 97.4 F 310 lbs 67 in 48.55 kg/m2 2.58 m2 96 % 08/19/2012 8:09:00 AM 144 mmHg 68 mmHg 70 bpm 18 rpm 98 F 306 lbs 67 in 47.9259 kg/m 2.5615 m 08/04/2012 9:26:00 AM 142 mmHg 80 mmHg 84 bpm 20 rpm 97.1 F 301 lbs 67 in 47.14 kg/m2 2.54 m2 98 % 07/24/2012 10:11:00 AM 118 mmHg 72 mmHg 66 bpm 16 rpm 96.9 F 303 lbs 67 in 47.456 kg/m 2.5489 m 07/16/2012 8:08:00 AM 140 mmHg 72 mmHg 70 bpm 18 rpm 97.4 F 299 lbs 67 in 46.83 kg/m2 2.53 m2 05/19/2012 10:08:00 AM 144 mmHg 76 mmHg 78 bpm 22 rpm 98 F 303 lbs 67 in 47.456 kg/m 2.5489 m 98 % 05/14/2012 10:12:00 AM 122 mmHg 90 mmHg 78 bpm 16 rpm 97.2 F 303 lbs 67 in 47.46 kg/m2 2.55 m2 03/13/2012 1:17:00 PM 132 mmHg 84 mmHg 80 bpm 16 rpm 96.1 F 304.375 lbs 67 in 47.6714 kg/m 2.5547 m 02/05/2012 9:20:00 AM 140 mmHg 70 mmHg 78 bpm 22 rpm 97.9 F 303 lbs 67 in 47.46 kg/m2 2.55 m2 01/31/2012 4:01:00 PM 142 mmHg 80 mmHg 74 bpm 16 rpm 97 F 301 lbs 67 in 47.1428 kg/m 2.5405 m 01/16/2012 1:48:00 PM 164 mmHg 96 mmHg 84 bpm 16 rpm 95.8 F 303 lbs 67 in 47.46 kg/m2 2.55 m2 01/01/2012 9:03:00 AM 178 mmHg 88 mmHg 80 bpm 20 rpm 98.2 F 312 lbs 67 in 48.8656 kg/m 2.5865 m 11/16/2011 8:06:00 AM 110 mmHg 70 mmHg 80 bpm 16 rpm 95.9 F 302.5 lbs 67 in 47.38 kg/m2 2.55 m2 10/05/2011 8:16:00 AM 124 mmHg 80 mmHg 82 bpm 16 rpm 95.9 F 307 lbs 67 in 48.0825 kg/m 2.5657 m 10/01/2011 10:50:00 AM 142 mmHg 80 mmHg 76 bpm 18 rpm 97.7 F 306.5 lbs 67 in 48.00 kg/m2 2.56 m2 09/06/2011 8:08:00 AM 122 mmHg 82 mmHg 88 bpm 16 rpm 97.1 F 305 lbs 67 in 47.7693 kg/m 2.5573 m 07/26/2011 10:03:00 AM 134 mmHg 76 mmHg 78 bpm 18 rpm 98.2 F 295 lbs 67 in 46.20 kg/m2 2.52 m2 06/19/2011 3:51:00 PM 142 mmHg 94 mmHg [...] AM Kenalog, Per 10 Mg [facility]#6420-1462-93 Reviewed 12/07/2014 12:00 AM OFFICE/OUTPATIENT VISIT EST Reviewed 06/19/2011 12:00 AM DRAIN/INJ JOINT/BURSA W/O US Reviewed 06/19/2011 12:00 AM Kenalog 40 Mg [facility]#0685-7878-94 Reviewed 08/25/2015 12:00 AM OFFICE/OUTPATIENT VISIT EST Reviewed 08/23/2015 12:00 AM Decadron, Per 1 Mg [facility]# [address]-20 Reviewed 08/23/2015 12:00 AM Depo-Medrol, Per 80 Mg [facility]#[address]-56 Reviewed 09/07/2015 12:00 AM X-RAY EXAM L-S [...] Decadron, Per 1 Mg [facility]# [address]-48 Reviewed 10/23/2015 12:00 AM Depo-Medrol, Per 80 Mg [facility]#[address]-33 Reviewed 07/26/2011 12:00 AM X-RAY EXAM OF ABDOMEN Reviewed 11/21/2015 12:00 AM Orthopedics Consultation Reviewed 11/21/2015 12:00 AM Physical Therapy Consultation Reviewed 12/20/2015 12:00 AM EXTREMITY STUDY Reviewed 10/12/2011 12:00 AM EXTREMITY STUDY Reviewed 05/10/2016 12:00 AM CONTRAST X-RAY OF SHOULDER Reviewed 07/09/2016 12:00 AM PNEUMOCOCCAL VACC 13 RIP IM Reviewed 08/08/2016 12:00 AM Decadron, Per 1 Mg [facility]# [address]-60 Reviewed 08/08/2016 12:00 AM Depo-Medrol, Per 80 Mg [facility]#[address]-47 Reviewed 01/01/2012 12:00 AM AIRWAY INHALATION TREATMENT Reviewed 01/01/2012 12:00 AM Rocephin 1 gm [facility]#[address]-20 Reviewed 01/16/2012 12:00 AM DRAIN/INJ JOINT/BURSA W/O US Reviewed 01/16/2012 12:00 AM Kenalog per 10Mg [facility]#[address]-93(Srinath) Reviewed 09/26/2016 12:00 AM CHEST X-RAY 2VW FRONTAL&LATL Reviewed 10/23/2016 12:00 AM INJECT SPINE LUMBAR/SACRAL Reviewed 02/05/2012 12:[address] ABDOMEN W/O & W/DYE Reviewed 02/05/2012 12:[address] PELVIS W/O & W/DYE Reviewed 11/01/2016 12:00 AM URNLS DIP STICK/TABLET RGNT AUTO W/O MICROSCOPY Reviewed 11/20/2016 12:00 AM GLYCOSYLATED HEMOGLOBIN TEST Reviewed 11/20/2016 12:00 AM HEPATITIS C AB TEST Reviewed 05/29/2012 12:00 AM DRAIN/INJ JOINT/BURSA W/O US Reviewed 05/29/2012 12:00 AM SYNVISC, Per 1 Mg (2ml) [facility] [address]-57 Reviewed 06/05/2012 12:00 AM DRAIN/INJ JOINT/BURSA W/O US Reviewed 06/05/2012 12:00 AM SYNVISC, Per 1 Mg (2ml) [facility] [address]-09 Reviewed 06/12/2012 12:00 AM DRAIN/INJ JOINT/BURSA W/O US Reviewed 06/12/2012 12:00 AM SYNVISC, Per 1 Mg (2ml) [facility] [address]-10 Reviewed 07/16/2012 12:00 AM Hepatobiliary ductal system imaging with functional assessment Reviewed 07/16/2012 12:00 AM Decadron 8 mg [facility]#[id number] Reviewed 07/16/2012 12:00 AM Depo-Medrol 80mg [facility]#[id number] Reviewed 07/16/2012 12:00 AM COMPREHEN METABOLIC PANEL Reviewed 07/16/2012 12:00 AM LIPID PANEL Reviewed 07/16/2012 12:00 AM Flu Injection 3 Years And Above [facility]# [address]-92 RHC Reviewed 08/19/2012 12:00 AM METABOLIC PANEL TOTAL CA Reviewed 12/21/2009 12:[address] ABDOMEN W/O & W/DYE Reviewed 10/02/2012 12:00 AM CHEST X-RAY 2VW FRONTAL&LATL Reviewed 10/09/2012 12:00 AM Decadron 8 mg [facility]#[id number] Reviewed 10/09/2012 12:00 AM Depo-Medrol 80mg [facility]#[id number] Reviewed 12/09/2012 12:00 AM CHEST X-RAY 2VW [...] Per 1 Mg (6ml) [facility] [address]-04 Reviewed 02/26/2013 12:00 AM Physical Therapy Reviewed 02/26/2013 12:[address] NECK SPINE W/O & W/DYE Reviewed 04/07/2013 12:00 AM INJECT TRIGGER POINTS 3/> Reviewed 04/07/2013 12:00 AM Kenalog per 10Mg [facility]#[address]-11(Srinath) Reviewed 07/21/2013 12:00 AM CHEST X-RAY 2VW FRONTAL&LATL Reviewed 07/21/2013 12:00 AM Decadron 8 mg [facility]# [address]-48 Reviewed 07/21/2013 12:00 AM Depo-Medrol 80 mg [facility]#[address]-98 Reviewed 07/21/2013 12:00 AM Rocephin 500 mg [facility]#3999-1232-19 Reviewed 09/22/2013 12:00 AM CHEST X-RAY 2VW FRONTAL&LATL Reviewed 10/29/2013 12:00 AM X-RAY EXAM OF ABDOMEN Reviewed 12/08/2013 12:00 AM THER/PROPH/DIAG INJ SC/IM Reviewed 12/08/2013 12:00 AM Decadron, Per 1 Mg [facility]# [address]-19 Reviewed 12/08/2013 12:00 AM Depo-Medrol, Per 80 Mg [facility]#7388-5644-56 Reviewed 12/08/2013 12:00 AM CHEST X-RAY 2VW [...] AM Decadron 8 mg [facility]# [address]-49 Reviewed 01/05/2014 12:00 AM Depo-Medrol 80 mg [facility]#[address]-80 Reviewed 01/05/2014 12:00 AM Rocephin 1 gram [facility]#6308-9215-02 Reviewed 03/15/2010 12:00 AM PROTHROMBIN TIME Reviewed [...] AM Kenalog per 10Mg [facility]#[address]-92(Srinath) Reviewed 05/05/2014 12:00 AM DRAIN/INJ JOINT/BURSA W/O US Reviewed 05/05/2014 12:00 AM SYNVISC-ONE, Per 1 Mg (6ml) [facility] [address]-05 Reviewed 05/06/2014 12:00 AM COMPREHEN METABOLIC PANEL [...] 12:00 AM Rocephin 500 mg [facility]#[address]-87 Reviewed 07/14/2014 12:00 AM Fluzone MEDICARE Only Reviewed 11/29/2010 12:00 AM INJECT TRIGGER POINTS 3/> Reviewed 11/29/2010 12:00 AM Kenalog per 10Mg [facility]#[address]-11(Srinath) Reviewed 07/14/2014 12:00 AM Decadron injection Reviewed [...] 21.0 mmol/LBUN 29.0 mg/dLCREATININE 1.50 mg/dLCALCIUM 9.30 mg/dLAGE 50 GFR NonAA 49 GFR AA 59 eGFR 49 eGFR AA* 59 03/15/2010 10:06 AM PROTIME 15.40 secsINR 1.4 05/02/2010 2:55 PM GLYCOHEMOGLOBIN A1C 7.30 % 06/01/2010 2:06 PM COLOR YELLOW APPEARANCE CLEAR SPEC GRAV >=1.030 pH 5.0 PROTEIN NEGATIVE GLUCOSE NEGATIVE KETONE NEGATIVE BILIRUBIN NEGATIVE BLOOD NEGATIVE NITRITE NEGATIVE LEUK SCREEN NEGATIVE WBC/HPF 0-5 RBC/HPF NEGATIVE CASTS/LPF NEGATIVE CRYSTALS NEGATIVE MUCOUS THRDS FEW BACTERIA FEW EPITH CELLS FEW SQUAMOUS TRICHOMONAS NEGATIVE YEAST NEGATIVE CULT SET UP? NO 06/12/2010 7:50 AM PROTIME 35.60 secsINR 3.2 GLUCOSE 131.0 mg/dLSODIUM 136.0 mmol/LPOTASSIUM 4.20 mmol/LCHLORIDE 105.0 mmol/LCO2 22.0 mmol/LBUN 17.0 mg/ dLCREATININE 1.30 mg/dLSGOT/AST 21.0 IU/LSGPT/ALT 22.0 IU/LALK PHOS 114.0 IU/ LTOTAL PROTEIN 7.20 g/dLALBUMIN 4.0 g/dLTOTAL BILI 0.20 mg/dLCALCIUM 9.30 mg/ dLAGE 50 GFR NonAA 58 GFR AA 70 eGFR 58 eGFR AA* >60 06/14/2010 10:19 AM GLYCOHEMOGLOBIN A1C 7.40 %GLUCOSE [...] 15.0 g/dLHCT 45.90 %MCV 89.0 fLMCH 29.10 pgHC 32.70 g/dLRDW SD 50 RDW CV 15.60 [...] AA 51 eGFR 42 eGFR AA* 51 06/01/2015 1:58 PM WBC 8.5 RBC 4.11 HGB 12.30 g/dLHCT 39.40 %MCV 96.0 fLMCH 29.90 pgMCHC 31.20 g/dLRDW SD 61 RDW CV 17.20 %MPV 9.60 fLPLT 242 NRBC# 0.00 NRBC% 0.0 %NEUT 60.30 %%LYMP 30.80 %%MONO 5.30 %%EOS 3.10 %%BASO 0.50 %#NEUT 5.14 #LYMP 2.62 #MONO 0.45 #EOS 0.26 #BASO 0.04 MANUAL DIFF NOT IND GLUCOSE 104.0 mg/dLSODIUM 145.0 mmol/LPOTASSIUM 4.10 mmol/LCHLORIDE 104.0 mmol/LCO2 34.0 mmol/LBUN 15.0 mg/dLCREATININE 1.60 mg/dLALBUMIN 3.90 g/dLCALCIUM 9.30 mg/ dLPHOSPHORUS 3.30 mg/dLAGE 55 GFR NonAA 45 GFR AA 55 eGFR 45 eGFR AA* 55 VITAMIN D 17.60 ng/mL 06/15/2015 3:42 PM WBC 9.7 RBC 4.17 HGB 12.50 g/dLHCT 39.80 %MCV 95.0 fLMCH 30.0 pgMCHC 31.40 g/dLRDW SD 58 RDW CV 16.50 %MPV 9.10 fLPLT 270 NRBC# 0.00 NRBC % 0.0 %NEUT 63.90 %%LYMP 28.40 %%MONO 5.10 %%EOS 2.40 %%BASO 0.20 %#NEUT 6.18 # LYMP 2.75 #MONO 0.49 #EOS 0.23 #BASO 0.02 MANUAL DIFF NOT IND GLUCOSE 127.0 mg/ dLSODIUM 138.0 mmol/LPOTASSIUM 4.40 mmol/LCHLORIDE 103.0 mmol/LCO2 28.0 mmol/ LBUN 18.0 mg/dLCREATININE 1.70 mg/dLSGOT/AST 15.0 IU/LSGPT/ALT 16.0 IU/LALK PHOS 107.0 IU/LTOTAL PROTEIN 7.40 g/dLALBUMIN 4.0 g/dLTOTAL BILI 0.30 mg/dLAGE 55 GFR NonAA 42 GFR AA 51 eGFR 42 eGFR AA* 51 GLUCOSE 127.0 mg/dLSODIUM 138.0 mmol/LPOTASSIUM 4.40 mmol/LCHLORIDE 103.0 mmol/LCO2 28.0 mmol/LBUN 18.0 mg/ dLCREATININE 1.70 mg/dLSGOT/AST 15.0 IU/LSGPT/ALT 16.0 IU/LALK PHOS 107.0 IU/ LTOTAL PROTEIN 7.40 g/dLALBUMIN 4.0 g/dLTOTAL BILI 0.30 mg/dLCALCIUM 9.20 mg/ dLAGE 55 GFR NonAA 42 GFR AA 51 eGFR 42 eGFR AA* 51 06/20/2015 3:14 PM GLUCOSE 104.0 mg/dLSODIUM 136.0 mmol/LPOTASSIUM 4.40 mmol/ LCHLORIDE 102.0 mmol/LCO2 27.0 mmol/LBUN 40.0 mg/dLCREATININE 2.20 mg/dLSGOT/ AST 12.0 IU/LSGPT/ALT 14.0 IU/LALK PHOS 81.0 IU/LTOTAL PROTEIN 7.40 g/dLALBUMIN 4.0 g/dLTOTAL BILI 0.70 mg/dLCALCIUM 9.0 mg/dLAGE 55 GFR NonAA 31 GFR AA 38 eGFR 31 eGFR AA* 38 WBC 9.3 RBC 4.34 HGB 13.0 g/dLHCT 40.30 %MCV 93.0 fLMCH 30.0 pgMCHC 32.30 g/dLRDW SD 55 RDW CV 15.90 %MPV 10.10 fLPLT 251 NRBC# 0.00 NRBC% 0.0 %NEUT 72.10 %%LYMP 23.30 %%MONO 3.10 %%EOS 1.30 %%BASO 0.20 %#NEUT 6.69 #LYMP 2.16 #MONO 0.29 #EOS 0.12 #BASO 0.02 MANUAL DIFF NOT IND 06/23/2015 12:08 PM WBC 8.2 RBC 4.40 HGB 13.40 g/dLHCT 41.40 %MCV 94.0 fLMCH 30.50 pgMCHC 32.40 g/dLRDW SD 56 RDW CV 16.0 %MPV 10.20 fLPLT 263 NRBC# 0.00 NRBC% 0.0 %NEUT 77.90 %%LYMP 16.90 %%MONO 3.50 %%EOS 1.50 %%BASO 0.20 %#NEUT 6.40 #LYMP 1.39 #MONO 0.29 #EOS 0.12 #BASO 0.02 MANUAL DIFF NOT IND GLUCOSE 131.0 mg/dLSODIUM 139.0 mmol/LPOTASSIUM 4.50 mmol/LCHLORIDE 105.0 mmol/LCO2 25.0 mmol/LBUN 42.0 mg/dLCREATININE 2.20 mg/dLSGOT/AST 14.0 IU/LSGPT/ALT 14.0 IU /LALK PHOS 108.0 IU/LTOTAL PROTEIN 8.10 g/dLALBUMIN 4.10 g/dLTOTAL BILI 0.30 mg/ dLCALCIUM 9.40 mg/dLAGE 55 GFR NonAA 31 GFR AA 38 eGFR 31 eGFR AA* 38 07/06/2015 3:45 PM WBC 5.4 RBC 4.22 HGB 12.90 g/dLHCT 38.70 %MCV 92.0 fLMCH 30.60 pgMCHC 33.30 g/dLRDW SD 53 RDW CV 16.0 %MPV 10.10 fLPLT 162 NRBC# 0.00 NRBC% 0.0 %NEUT 80.50 %%LYMP 13.0 %%MONO 5.20 %%EOS 0.90 %%BASO 0.40 %#NEUT 4.35 #LYMP 0.70 #MONO 0.28 #EOS 0.05 #BASO 0.02 MANUAL DIFF NOT IND GLUCOSE 96.0 mg/dLSODIUM 143.0 mmol/LPOTASSIUM 4.20 mmol/LCHLORIDE 105.0 mmol/LCO2 31.0 mmol/LBUN 15.0 mg/dLCREATININE 1.50 mg/dLSGOT/AST 13.0 IU/LSGPT/ALT 12.0 IU/ LALK PHOS 104.0 IU/LTOTAL PROTEIN 6.90 g/dLALBUMIN 3.90 g/dLTOTAL BILI 0.40 mg/ dLCALCIUM 9.0 mg/dLAGE 55 GFR NonAA 48 GFR AA 58 eGFR 48 eGFR AA* 58 07/14/2015 12:25 PM GLUCOSE 84.0 mg/dLSODIUM 142.0 mmol/LPOTASSIUM 3.90 mmol/ LCHLORIDE 105.0 mmol/LCO2 27.0 mmol/LBUN 23.0 mg/dLCREATININE 1.50 mg/dLSGOT/ AST 12.0 IU/LSGPT/ALT 10.0 IU/LALK PHOS 90.0 IU/LTOTAL PROTEIN 6.60 g/dLALBUMIN 3.70 g/dLTOTAL BILI 0.30 mg/dLCALCIUM 8.80 mg/dLAGE 55 GFR NonAA 48 GFR AA 58 eGFR 48 eGFR AA* 58 WBC 3.8 RBC 4.32 HGB 12.90 g/dLHCT 39.30 %MCV 91.0 fLMCH 29.90 pgMCHC 32.80 g/dLRDW SD 54 RDW CV 16.20 %MPV 10.10 fLPLT 162 NRBC# 0.00 NRBC% 0.0 %NEUT 72.40 %%LYMP 17.50 %%MONO 8.50 %%EOS 1.10 %%BASO 0.50 %#NEUT 2.74 #LYMP 0.66 #MONO 0.32 #EOS 0.04 #BASO 0.02 MANUAL DIFF NOT IND 07/21/2015 11:34 AM WBC 2.9 RBC 4.32 HGB 13.0 g/dLHCT 39.10 %MCV 91.0 fLMCH 30.10 pgMCHC 33.20 g/dLRDW SD 54 RDW CV 16.60 %MPV 10.0 fLPLT 141 NRBC# 0.00 NRBC% 0.0 %NEUT 80.20 %%LYMP 9.20 %%MONO 9.60 %%EOS 0.70 %%BASO 0.30 %#NEUT 2.34 #LYMP 0.27 #MONO 0.28 #EOS 0.02 #BASO 0.01 MANUAL DIFF NOT IND 09/07/2015 9:58 AM COLOR YELLOW APPEARANCE CLEAR [...] MANUAL DIFF NOT IND TSH 2.390 uIU/mL 09/14/2015 9:05 AM GLUCOSE 101.0 mg/dLSODIUM 140.0 mmol/LPOTASSIUM 4.10 mmol/ LCHLORIDE 104.0 mmol/LCO2 26.0 mmol/LBUN 17.0 mg/dLCREATININE 1.50 mg/dLSGOT/ AST 12.0 IU/LSGPT/ALT 9.0 IU/LALK PHOS 103.0 IU/LTOTAL PROTEIN 6.50 g/dLALBUMIN 3.60 g/dLTOTAL BILI 0.20 mg/dLCALCIUM 8.80 mg/dLAGE 55 GFR NonAA 48 GFR AA 58 eGFR 48 eGFR AA* 58 WBC 6.5 RBC 4.38 HGB 12.90 g/dLHCT 39.30 %MCV 90.0 fLMCH 29.50 pgMCHC 32.80 g/dLRDW SD 63 RDW CV 19.20 %MPV 9.30 fLPLT 178 NRBC# 0.00 NRBC% 0.0 %NEUT 67.20 %%LYMP 22.80 %%MONO 7.40 %%EOS 2.30 %%BASO 0.30 %#NEUT 4.36 #LYMP 1.48 #MONO 0.48 #EOS 0.15 #BASO 0.02 MANUAL DIFF NOT IND 01/10/2016 9:20 AM WBC 8.2 RBC 4.60 HGB 12.70 g/dLHCT 41.10 %MCV 89.0 fLMCH 27.60 pgMCHC 30.90 g/dLRDW SD 50 RDW CV 15.50 %MPV 9.50 fLPLT 299 NRBC# 0.00 NRBC% 0.0 %NEUT 76.60 %%LYMP 12.60 %%MONO 7.10 %%EOS 2.70 %%BASO 0.40 %#NEUT 6.27 #LYMP 1.03 #MONO 0.58 #EOS 0.22 #BASO 0.03 MANUAL DIFF NOT IND GLUCOSE 114.0 mg/dLSODIUM 142.0 mmol/LPOTASSIUM 3.60 mmol/LCHLORIDE 101.0 mmol/LCO2 29.0 mmol/LBUN 17.0 mg/dLCREATININE 1.50 mg/dLSGOT/AST 11.0 IU/LSGPT/ALT <6 IU/ LALK PHOS 100.0 IU/LTOTAL PROTEIN 7.0 g/dLALBUMIN 3.70 g/dLTOTAL BILI 0.40 mg/ dLCALCIUM 9.0 mg/dLAGE 55 GFR NonAA 48 GFR AA 58 eGFR 48 eGFR AA* 58 02/15/2016 1:35 PM WBC 9.7 RBC 4.73 HGB 13.0 g/dLHCT 41.50 %MCV 88.0 fLMCH 27.50 pgMCHC 31.30 g/dLRDW SD 51 RDW CV 16.0 %MPV 9.70 fLPLT 329 NRBC# 0.00 NRBC % 0.0 %NEUT 75.60 %%LYMP 12.50 %%MONO 7.50 %%EOS 3.10 %%BASO 0.40 %#NEUT 7.35 # LYMP 1.22 #MONO 0.73 #EOS 0.30 #BASO 0.04 MANUAL DIFF NOT IND GLUCOSE 116.0 mg/ dLSODIUM 138.0 mmol/LPOTASSIUM 3.30 mmol/LCHLORIDE 100.0 mmol/LCO2 32.0 mmol/ LBUN 18.0 mg/dLCREATININE 1.60 mg/dLALBUMIN 3.90 g/dLCALCIUM 9.30 mg/ dLPHOSPHORUS 3.30 mg/dLAGE 56 GFR NonAA 45 GFR AA 55 eGFR 45 eGFR AA* 55 VITAMIN D 12.30 ng/mL 02/15/2016 4:51 PM COLOR YELLOW APPEARANCE CLEAR SPEC GRAV 1.025 pH 5.5 PROTEIN 100 GLUCOSE NEGATIVE mg/dLKETONE NEGATIVE BILIRUBIN NEGATIVE BLOOD TRACE -INTACT NITRITE NEGATIVE LEUK SCREEN NEGATIVE WBC/HPF 0-5 RBC/HPF 0-5 CASTS/LPF NEGATIVE /LPFCRYSTALS 1+ AMORPHOUS MUCOUS THRDS NEGATIVE BACTERIA FEW EPITH CELLS NEGATIVE /HPFTRICHOMONAS NEGATIVE YEAST NEGATIVE PROTEIN UR 62.0 mg/ dLCREAT UR RAND 177.0 mg/dLPROTEIN:CREAT RATIO 0.4 07/06/2016 6:10 AM GLUCOSE 126.0 mg/dLSODIUM 139.0 mmol/LPOTASSIUM 3.90 mmol/ LCHLORIDE 105.0 mmol/LCO2 23.0 mmol/LBUN 21.0 mg/dLCREATININE 1.30 mg/dLSGOT/ AST 9.0 IU/LSGPT/ALT 7.0 IU/LALK PHOS 101.0 IU/LTOTAL PROTEIN 6.50 g/dLALBUMIN 3.20 g/dLTOTAL BILI 0.40 mg/dLCALCIUM 8.60 mg/dLAGE 56 GFR NonAA 57 GFR AA 69 eGFR 57 eGFR AA* >60 TROPONIN-I AD <0.04 ng/mLWBC 13.8 RBC 3.99 HGB 10.80 g/ dLHCT 34.10 %MCV 86.0 fLMCH 27.10 pgMCHC 31.70 g/dLRDW SD 51 RDW CV 16.60 %MPV 9.80 fLPLT 265 NRBC# 0.00 NRBC% 0.0 %NEUT 86.90 %%LYMP 4.90 %%MONO 7.40 %%EOS 0.0 %%BASO 0.10 %#NEUT 11.99 #LYMP 0.68 #MONO 1.02 #EOS 0.00 #BASO 0.01 MANUAL DIFF SEE BELOW SEGS 88 BANDS 6 LYMPHS 3 MONOS 3 ANISO 1+ HYPO 1+ GLUCOSE 126.0 mg/dLSODIUM 139.0 mmol/LPOTASSIUM 3.90 mmol/LCHLORIDE 105.0 mmol/LCO2 23.0 mmol/ LBUN 21.0 mg/dLCREATININE 1.30 mg/dLCALCIUM 8.60 mg/dLAGE 56 GFR NonAA 57 GFR AA 69 eGFR 57 eGFR AA* >60 GLUCOSE 126.0 mg/dLSODIUM 139.0 mmol/LPOTASSIUM 3.90 mmol/LCHLORIDE 105.0 mmol/LCO2 23.0 mmol/LBUN 21.0 mg/dLCREATININE 1.30 mg/ dLCALCIUM 8.60 mg/dLAGE 56 GFR NonAA 57 GFR AA 69 eGFR 57 eGFR AA* >60 07/06/2016 7:04 AM MAGNESIUM 1.60 mg/dLPHOSPHORUS 3.10 mg/dL 07/06/2016 7:05 AM TSH 0.370 uIU/mL 08/27/2016 11:45 AM GLUCOSE 92.0 mg/dLSODIUM 141.0 mmol/LPOTASSIUM 4.0 mmol/ LCHLORIDE 103.0 mmol/LCO2 29.0 mmol/LBUN 17.0 mg/dLCREATININE 1.50 mg/dLALBUMIN 3.70 g/dLCALCIUM 9.30 mg/dLPHOSPHORUS 3.20 mg/dLAGE 56 GFR NonAA 48 GFR AA 58 eGFR 48 eGFR AA* 58 MAGNESIUM 1.80 mg/dL 10/18/2016 12:04 PM WBC 10.0 RBC 4.37 HGB 11.50 g/dLHCT 37.10 %MCV 85.0 fLMCH 26.30 pgMCHC 31.0 g/dLRDW SD 52 RDW CV 16.80 %MPV 9.0 fLPLT 308 NRBC# 0.00 NRBC % 0.0 %NEUT 79.40 %%LYMP 9.80 %%MONO 6.20 %%EOS 3.70 %%BASO 0.30 %#NEUT 7.98 # LYMP 0.98 #MONO 0.62 #EOS 0.37 #BASO 0.03 MANUAL DIFF NOT IND GLUCOSE 111.0 mg/ dLSODIUM 141.0 mmol/LPOTASSIUM 4.0 mmol/LCHLORIDE 103.0 mmol/LCO2 25.0 mmol/ LBUN 13.0 mg/dLCREATININE 1.30 mg/dLSGOT/AST 9.0 IU/LSGPT/ALT 8.0 IU/LALK PHOS 124.0 IU/LTOTAL PROTEIN 7.10 g/dLALBUMIN 3.40 g/dLTOTAL BILI 0.50 mg/dLCALCIUM 8.80 mg/dLAGE 56 GFR NonAA 57 GFR AA 69 eGFR 57 eGFR AA* >60 11/01/2016 2:02 PM COLOR YELLOW APPEARANCE CLEAR SPEC GRAV 1.025 pH 6.0 PROTEIN 100 GLUCOSE NEGATIVE mg/dLKETONE NEGATIVE BILIRUBIN NEGATIVE BLOOD NEGATIVE NITRITE NEGATIVE LEUK SCREEN NEGATIVE MICRO INDICATED? NOT INDICATED 11/20/2016 11:10 AM HGB A1C 5.90 %Est Avg Glucose 122.6 mg/dLHEPATITIS C 0.13 11/27/2016 10:20 AM GLUCOSE 102.0 mg/dLSODIUM 145.0 mmol/LPOTASSIUM 4.10 mmol/ LCHLORIDE 108.0 mmol/LCO2 30.0 mmol/LBUN 27.0 mg/dLCREATININE 1.50 mg/dLSGOT/ AST 12.0 IU/LSGPT/ALT 7.0 IU/LALK PHOS 132.0 IU/LTOTAL PROTEIN 7.20 g/dLALBUMIN 3.50 g/dLTOTAL BILI 0.20 mg/dLCALCIUM 9.10 mg/dLAGE 56 GFR NonAA 48 GFR AA 58 eGFR 48 eGFR AA* 58 WBC 7.6 RBC 4.21 HGB 11.30 g/dLHCT 37.40 %MCV 89.0 fLMCH 26.80 pgMCHC 30.20 g/dLRDW SD 61 RDW CV 18.70 %MPV 8.70 fLPLT 196 NRBC# 0.00 NRBC% 0.0 %NEUT 73.80 %%LYMP 14.30 %%MONO 7.30 %%EOS 3.50 %%BASO 0.40 %#NEUT 5.62 #LYMP 1.09 #MONO 0.56 #EOS 0.27 #BASO 0.03 MANUAL DIFF NOT IND History Of Immunizations Name Date Admin Mfg Name Mfg Code Trade Name Lot# Route Inj Vis Given Vis Pub CVX Pneumococcal 07/09/2016 Emily WAL Prevnar 13 [id number] Intramuscular Right Deltoid 07/09/2016 07/28/2015 133 History of Past Illness Name Date of Onset Comments SI joint pain Aug 23 2009 8:58AM Muscle Spasm Aug 23 2009 8:58AM Congestive Heart Failure Cardiomyopathy viral Hypertension Gastroesophageal Reflux Gout Hypercholesterolemia Diverticulosis Of Colon Chronic Obstructive Pulmonary Disease Gastritis Hernia, Hiatal pulmonary hypertension Carpal tunnel syndrome bilateral SI joint pain 08/23/2009 SI joint [...] 06 2011 8:06AM Pain in joint; Knee,right Sep 2010 [...] Osteoarthritis, knee Sep 2011 9:42AM Osteoarthritis, knee May 13 2011 [...] Disease Feb 2013 9:08AM Congestive Heart Failure b 2013 9:08AM Hypertension b 2013 9:08AM Diabetes Mellitus, Type II b 2013 9:08AM Gastroenteritis, Noninfectious b 6 2013 9:08AM Lumbar spondylosis Nov 25 [...] 2016 8:11AM Lumbago Dec 21 2016 8:11AM Payers Insurance Name Company Name Plan Name Plan Number Policy Number Policy Group Number Start Date Medicare RHC Medicare RHC [id number] N/A [employer] [place] State [facility] [id number] N/A [place] [employer] Medicare [place] [employer] Ins [phone] N/A [place] Medical Assistance [facility] Medical Assistance Prog [id number] N/A Medicare Part B Medicare Of [place] [id number] Friday, 2008 Medicare Part A Medicare Part A [id number] N/A [facility] - RHC - Community Plan [facility] RHC Comm [id number] Wednesday, 2015 [employer] - [place]HC [place] State [place] [employer] [place] [id number] Wednesday, 2015 Medicare Part A Medicare - Lab/Xray [id number] N/A History of Encounters Visit Date Visit Type Provider 01/09/2017 Office visit Melecio Wilkinson DO 01/01/2017 [facility] Seth Devlin DO 12/21/2016 Office visit Melecio Wilkinson DO 11/20/2016 Office visit Melecio Wilkinson DO 11/05/2016 Office visit Melecio Wilkinson DO 10/23/2016 Office visit Melecio Wilkinson DO 10/10/2016 Office visit Melecio Wilkinson DO 09/26/2016 Office visit Melecio Wilkinson DO 08/28/2016 Office visit Melecio Wilkinson DO 08/08/2016 Office visit Melecio Jaja DO [...] Melecio Jaja DO 02/17/2015 Office visit Melecio Cruzte DO 02/17/2015 Office visit Katty CRAIG 01/19/2015 Office visit Katty CRAIG 01/13/2015 Office visit Melecio Cruzte DO 01/12/2015 Office visit Katty CRAIG 12/16/2014 [facility] Alfa Platt MD 12/14/2014 Voided Melecio Willhite DO 12/08/2014 Office visit Alfa Platt MD 12/08/2014 Office visit Melecio Willhite DO 12/07/2014 Nurse visit Riri Salazar MD 12/02/2014 Hospital Alfa Platt MD 12/02/2014 [facility] Magi Powers MD 11/29/2014 [facility] Magi Powers MD 11/29/2014 Voided Katty CRAIG 11/11/2014 Office visit 11/11/2014 Office visit Katty CRAIG 11/11/2014 Office visit Melecio Willhite DO 10/14/2014 Office visit Katty CRAIG 09/14/2014 Office visit Katty CRAIG 09/08/2014 [facility] Ama Barrios MD 09/07/2014 Office visit Melecio [...] 01/06/2013 Office visit Gorge Yo MD 12/09/2012 [facility] Ama Barrios MD 12/09/2012 Office visit Stephanie MojicaNeville Richardson BULB PLANTER 11/26/2012 Office visit Gorge Yo MD 10/30/2012 [facility] Gorge Yo MD 10/29/2012 [...] 05/14/2012 Office visit Gorge Yo MD 05/12/2012 [facility] DO 05/11/2012 [facility] DO 03/13/2012 Office visit Gorge Yo MD 02/05/2012 Office visit Melecio Wilkinson DO 01/31/2012 Office visit Gorge Yo MD 01/16/2012 Office visit Gorge Yo MD 01/01/2012 Office visit Melecio Wilkinson DO 11/16/2011 Office visit Gorge Yo MD 10/05/2011 Office visit Gorge Yo MD 10/01/2011 Office visit Janis Navarrete BULB PLANTER 09/06/2011 Office visit Gorge Yo MD 07/26/2011 [...] 09/28/2010 Office visit Gorge Yo MD 09/05/2010 [facility] Gorge Yo MD 08/28/2010 Office visit Gorge Yo MD 08/07/2010 Office visit Janis Navarrete APRN 07/25/2010 Office visit Melecio Wilkinson DO 06/27/2010 Office visit Gorge Yo MD 06/14/2010 Office visit Melecio Wilkinson DO 06/06/2010 Laboratory Alfonso Camacho MD 06/01/2010 Office visit Melecio Wilkinson DO 04/17/2010 Office visit Melecio Wilkinson DO 04/06/2010 Office visit Gorge Yo MD 04/02/2010 [facility] Alfonso Camacho MD 03/31/2010 Laboratory Alfonso Camacho MD 03/31/2010 Laboratory Alfonso Camacho MD 03/31/2010 [facility] Alfonso Camacho MD 03/21/2010 [...]
[2018-01-22 10:44] VITALS: BP 136/95
--- OUTSIDE RECORDS SUMMARY | 2018-01-22 10:47 | XMS REPORT ---
Author Author Melecio Wilkinson [facility] Address [address] [place] [phone] Care Team Providers Care Bomb Loader Name Role Phone Melecio Wilkinson PCP Unavailable [...] route q6h prn for 30 days oxycodone 20 mg oral tablet,oral only,ext.rel.12 hr 01/09/2017 02/08/2017 take 1 tablet (20 mg) by oral route every 8 hours for 30 days furosemide 40 mg oral tablet 01/10/2017 01/15/2017 take 1 tablet (40 mg) by oral route once daily for 5 days Klor-Con 10 10 mEq oral tablet extended release 01/10/2017 01/15/2017 take 1 tablet (10 meq) by oral route once daily with food for 5 days Name Start Date Expiration Date SIG [...] once daily for 30 days changed to Sereneeto by Dr. Yesenia Cuevas 5 % topical [...] for 30 days Discontinued by Hospitalist at [place] niacin 500 mg oral tablet 10/10/2016 take [...] route every 12 hours for 30 days Hamlin guerita Amitiza 24 mcg oral capsule 05/03/2016 [...] 07/11/2015 12:00 AM Kenalog, Per 10 Mg [facility]#3352-1728-58 Reviewed 12/07/2014 12:00 AM OFFICE/OUTPATIENT VISIT EST Reviewed 06/19/2011 12:00 AM DRAIN/INJ JOINT/BURSA W/O US Reviewed 06/19/2011 12:00 AM Kenalog 40 Mg [facility]#7239-9279-18 Reviewed 08/25/2015 12:00 AM OFFICE/OUTPATIENT VISIT EST Reviewed 08/23/2015 12:00 AM Decadron, Per 1 Mg [facility]# [address]-91 Reviewed 08/23/2015 12:00 AM Depo-Medrol, Per 80 Mg [facility]#[address]-79 Reviewed 09/07/2015 12:00 AM X-RAY EXAM L-S [...] 10/23/2015 12:00 AM Decadron, Per 1 Mg [facility]# [address]-80 Reviewed 10/23/2015 12:00 AM Depo-Medrol, Per 80 Mg [facility]#[address]-59 Reviewed 07/26/2011 12:00 AM X-RAY EXAM OF ABDOMEN Reviewed 11/21/2015 12:00 AM Orthopedics Consultation Reviewed 11/21/2015 12:00 AM Physical Therapy Consultation Reviewed 12/20/2015 12:00 AM EXTREMITY STUDY Reviewed 10/12/2011 12:00 AM EXTREMITY STUDY Reviewed 05/10/2016 12:00 AM CONTRAST X-RAY OF SHOULDER Reviewed 07/09/2016 12:00 AM PNEUMOCOCCAL VACC 13 RIP IM Reviewed 08/08/2016 12:00 AM Decadron, Per 1 Mg [facility]# [address]-26 Reviewed 08/08/2016 12:00 AM Depo-Medrol, Per 80 Mg [facility]#[address]-35 Reviewed 01/01/2012 12:00 AM AIRWAY INHALATION TREATMENT Reviewed 01/01/2012 12:00 AM Rocephin 1 gm [facility]#[address]-53 Reviewed 01/16/2012 12:00 AM DRAIN/INJ JOINT/BURSA W/O US Reviewed 01/16/2012 12:00 AM Kenalog per 10Mg [facility]#[address]-09(Srinath) Reviewed 09/26/2016 12:00 AM CHEST X-RAY 2VW [...] 12:00 AM SYNVISC, Per 1 Mg (2ml) [facility] [address]-18 Reviewed 06/05/2012 12:00 AM DRAIN/INJ JOINT/BURSA W/O US Reviewed 06/05/2012 12:00 AM SYNVISC, Per 1 Mg (2ml) [facility] [address]-35 Reviewed 06/12/2012 12:00 AM DRAIN/INJ JOINT/BURSA W/O US Reviewed 06/12/2012 12:00 AM SYNVISC, Per 1 Mg (2ml) [facility] [address]-45 Reviewed 07/16/2012 12:00 AM Hepatobiliary ductal system imaging with functional assessment Reviewed 07/16/2012 12:00 AM Decadron 8 mg [facility]#[id number] Reviewed 07/16/2012 12:00 AM Depo-Medrol 80mg [facility]#[id number] Reviewed 07/16/2012 12:00 AM COMPREHEN METABOLIC PANEL Reviewed 07/16/2012 12:00 AM LIPID PANEL Reviewed 07/16/2012 12:00 AM Flu Injection 3 Years And Above [facility]# [address]-32 RHC Reviewed 08/19/2012 12:00 AM METABOLIC PANEL TOTAL CA Reviewed 12/21/2009 12:[address] ABDOMEN W/O & W/DYE Reviewed 10/02/2012 12:00 AM CHEST X-RAY 2VW FRONTAL&LATL Reviewed 10/09/2012 12:00 AM Decadron 8 mg [facility]#[id number] Reviewed 10/09/2012 12:00 AM Depo-Medrol 80mg [facility]#[id number] Reviewed 12/09/2012 12:00 AM CHEST X-RAY 2VW [...] 12:00 AM SYNVISC-ONE, Per 1 Mg (6ml) [facility] [address]-60 Reviewed 02/26/2013 12:00 AM Physical Therapy Reviewed 02/26/2013 12:[address] NECK SPINE W/O & W/DYE Reviewed 04/07/2013 12:00 AM INJECT TRIGGER POINTS 3/> Reviewed 04/07/2013 12:00 AM Kenalog per 10Mg [facility]#[address]-32(Srinath) Reviewed 07/21/2013 12:00 AM CHEST X-RAY 2VW FRONTAL&LATL Reviewed 07/21/2013 12:00 AM Decadron 8 mg [facility]# [address]-85 Reviewed 07/21/2013 12:00 AM Depo-Medrol 80 mg [facility]#[address]-25 Reviewed 07/21/2013 12:00 AM Rocephin 500 mg [facility]#6542-1737-42 Reviewed 09/22/2013 12:00 AM CHEST X-RAY 2VW FRONTAL&LATL Reviewed 10/29/2013 12:00 AM X-RAY EXAM OF ABDOMEN Reviewed 12/08/2013 12:00 AM THER/PROPH/DIAG INJ SC/IM Reviewed 12/08/2013 12:00 AM Decadron, Per 1 Mg [facility]# [address]-16 Reviewed 12/08/2013 12:00 AM Depo-Medrol, Per 80 Mg [facility]#3960-6223-66 Reviewed 12/08/2013 12:00 AM CHEST X-RAY 2VW [...] Reviewed 01/05/2014 12:00 AM Decadron 8 mg [facility]# [address]-60 Reviewed 01/05/2014 12:00 AM Depo-Medrol 80 mg [facility]#[address]-34 Reviewed 01/05/2014 12:00 AM Rocephin 1 gram [facility]#9985-6634-51 Reviewed 03/15/2010 12:00 AM PROTHROMBIN TIME Reviewed [...] Reviewed 09/28/2010 12:00 AM Kenalog per 10Mg [facility]#[address]-13(Srinath) Reviewed 05/05/2014 12:00 AM DRAIN/INJ JOINT/BURSA W/O US Reviewed 05/05/2014 12:00 AM SYNVISC-ONE, Per 1 Mg (6ml) [facility] [address]-18 Reviewed 05/06/2014 12:00 AM COMPREHEN METABOLIC PANEL [...] Reviewed 11/07/2010 12:00 AM Rocephin 500 mg [facility]#[address]-95 Reviewed 07/14/2014 12:00 AM Fluzone MEDICARE Only Reviewed 11/29/2010 12:00 AM INJECT TRIGGER POINTS 3/> Reviewed 11/29/2010 12:00 AM Kenalog per 10Mg [facility]#[address]-90(Srinath) Reviewed 07/14/2014 12:00 AM Decadron injection Reviewed [...] IND History Of Immunizations Name Date Admin Mf Name Mf Code Trade Name Lot# Route Inj Vis Given Vis Pub CVX Pneumococcal 07/09/2016 MarahPracharbel WAL Prevnar 13 [id number] Intramuscular Right Deltoid 07/09/2016 07/28/2015 133 History [...] Congestive Heart Failure b 2013 9:08AM Hypertension Oct 29 2013 9:08AM [...] Number Start Date Medicare RHC Medicare RHC [id number] N/[place] [employer] [place] [employer] [place] [id number] N/A [place] [facility] Medicare [place] Life Ins [phone] N/A [place] Medical Assistance [facility] Medical Assistance Prog [id number] N/A Medicare Part B Medicare Of [place] [id number] Friday, 2008 Medicare Part A Medicare Part A [id number] N/A [facility] - RHC - [facility] Plan [facility] RHC Comm [id number] Wednesday, 2015 [employer] - RHC - [place] State [place] [employer] - RHC [place] State Plan [id number] Wednesday, 2015 Medicare Part A Medicare - Lab/Xray [id number] N/A History of Encounters Visit Date Visit Type Provider 01/09/2017 Office visit Melecio Wilkinson DO 01/01/2017 [facility] Seth Devlin DO 12/21/2016 Office visit Melecio Wilkinson DO 11/20/2016 Office visit Melecio Jaja DO [...] Office visit Katty CRAIG 06/27/2015 Office visit Mleecio Jaja DO 06/20/2015 Office visit Melecio Jaja [...] DO 01/12/2015 Office visit Katty CRAIG 12/16/2014 [facility] Alfa Platt MD 12/14/2014 Voided Melecio Jaja DO 12/08/2014 Office visit Alfa Platt MD 12/08/2014 Office visit Melecio Jaja DO 12/07/2014 Nurse visit Riri Salazar MD 12/02/2014 [facility] Platt [facility]02[facility] 11/29[facility]2014 [facility] Gio STRONG 11/29/2014 Voided Katty CRAIG 11/11/2014 Office visit 11/11/2014 Office visit Katty CRAIG 11/11/2014 Office visit Melecio Jaja DO 10/14/2014 Office visit Katty CRAIG 09/14/2014 Office visit Katty CRAIG 09/08/2014 [facility] Ama Barrios MD 09/07/2014 Office [...] visit Katty CRAIG 12/23/2013 Office visit Melecio Willhite DO 12/18/2013 Office visit Janis Navarrete HARNESS AND BAG INSPECTOR 12/08/2013 Office visit Janis Navarrete HARNESS AND BAG INSPECTOR 11/25/2013 Office visit Katty CRAIG 10/29/2013 Office visit Melecio Wilkinson DO 09/22/2013 Office visit Janis Navarrete HARNESS AND BAG INSPECTOR 07/28/2013 Office visit Katty DURÁNP 07/21/2013 Office visit Melecio Wilkinson DO 07/08/2013 Office visit Katty CRAIG 05/06/2013 Office visit Melecio Wilkinson DO 04/07/2013 Office visit Gorge Yo MD 02/26/2013 Office visit Melecio Wilkinson DO 01/29/2013 Office visit Gorge Yo MD 01/06/2013 Office visit Gorge Yo MD 12/09/2012 [facility] Ama Barrios MD 12/09/2012 Office visit Stephanie Richardson HARNESS AND BAG INSPECTOR 11/26/2012 Office visit Gorge Yo MD 10/30/2012 [facility] Gorge Yo MD 10/29/2012 Office [...] 05/14/2012 Office visit Gorge Yo MD 05/12/2012 [facility] DO 05/11/2012 [facility] DO 03/13/2012 Office visit Gorge Yo MD 02/05/2012 Office visit Melecio Wilkinson DO 01/31/2012 Office visit Gorge Yo MD 01/16/2012 Office visit Gorge Yo MD 01/01/2012 Office visit Melecio Wilkinson DO 11/16/2011 Office visit Gorge Yo MD 10/05/2011 Office visit Gorge Yo MD 10/01/2011 Office visit Janis Navarrete HARNESS AND BAG INSPECTOR 09/06/2011 Office visit Gorge Yo MD [...] 09/28/2010 Office visit Gorge Yo MD 09/05/2010 [facility] Gorge Yo MD 08/28/2010 Office visit Gorge Yo MD 08/07/2010 Office visit Janis Navarrete APRN 07/25/2010 Office visit Melecio Wilkinson DO 06/27/2010 Office visit Gorge Yo MD 06/14/2010 Office visit Melecio Wilkinson DO 06/06/2010 Laboratory Alfonso Camacho MD 06/01/2010 Office visit Melecio Wilkinson DO 04/17/2010 Office visit Melecio Wiklinson DO 04/06/2010 Office visit Gorge Yo MD [...]
--- OUTSIDE RECORDS SUMMARY | 2018-01-22 10:49 | XMS REPORT ---
Author Author Melecio Wilkinson [facility] Address [address] [place] [id number] Care Team Providers Care Sports Medicine [place] Name Role Phone Melecio Wilkinson PCP Unavailable Allergies and Adverse Reactions Name Reaction Notes NO KNOWN DRUG ALLERGIES Plan of Treatment Not available. Medications Active Name Start Date Estimated Completion Date SIG Comments Hydralazine Oral Tablet 50 mg take 1 tablet (50 mg) by oral route 3 times per day with food Dr. Patterson Niacin Oral Tablet 500 mg take 1 tablet (500 mg) by oral route once daily Xarelto Oral one tablet by oral route once daily Symbicort inhalation HFA aerosol inhaler 160-4.5 mcg/actuation 09/23/2013 INHALE 2 PUFFS BY MOUTH 2 TIMES PER DAY MORNING AND EVENING lisinopril oral tablet 10 mg 10/13/2013 TAKE 1 TABLET BY MOUTH EVERY DAY FOR BLOOD PRESSURE diphenhydramine HCl oral capsule 50 mg 11/12/2013 TAKE 1 CAPSULE BY MOUTH EVERY SIX HOURS NEEDED Lovaza oral capsule 1 gram 11/12/2013 TAKE 2 CAPSULES (2 GRAM) BY ORAL ROUTE 2 TIMES PER DAY FOR 30 DAYS clonidine oral tablet 0.2 mg 11/12/2013 TAKE ONE TABLET BY MOUTH THREE TIMES DAILY NEEDED digoxin oral tablet 125 mcg 11/20/2013 TAKE 1 TABLET BY MOUTH EVERY DAY isosorbide mononitrate oral tablet extended release 24 hr 30 mg 11/20/2013 TAKE 1 TABLET BY MOUTH EVERY DAY *GEN IMDUR* simvastatin oral tablet 20 mg 12/17/2013 TAKE 1 TABLET BY MOUTH DAILY AT BEDTIME famotidine oral tablet 20 mg 12/18/2013 TAKE 1 TABLET BY MOUTH TWO TIMES A DAY allopurinol oral tablet 300 mg 02/11/2014 TAKE 1 TABLET BY MOUTH ONCE DAILY carvedilol oral tablet 12.5 mg 02/11/2014 TAKE 1 TABLET BY MOUTH TWO TIMES A DAY *GEN COREG* digoxin oral tablet 125 mcg 02/11/2014 TAKE 1 TABLET BY MOUTH EVERY DAY isosorbide mononitrate oral tablet extended release 24 hr 30 mg 02/11/2014 TAKE 1 TABLET BY MOUTH EVERY DAY *GEN IMDUR* isosorbide mononitrate oral tablet extended release 24 hr 30 mg 05/10/2014 TAKE 1 TABLET BY MOUTH EVERY DAY *GEN IMDUR* digoxin oral tablet 125 mcg 05/10/2014 TAKE 1 TABLET BY MOUTH EVERY DAY bupropion HCl oral tablet extended release 24 hr 150 mg 05/20/2014 take 1 tablet (150 mg) by oral route once daily clonidine HCl oral tablet 0.2 mg 06/07/2014 TAKE ONE TABLET BY MOUTH THREE TIMES DAILY NEEDED simvastatin oral tablet 20 mg 06/07/2014 TAKE 1 TABLET BY MOUTH DAILY AT BEDTIME furosemide oral tablet 20 mg 06/08/2014 take 1 unspecified by oral route daily allopurinol oral tablet 300 mg 08/02/2014 TAKE 1 TABLET BY MOUTH ONCE DAILY carvedilol oral tablet 12.5 mg 08/02/2014 TAKE 1 TABLET BY MOUTH TWO TIMES A DAY *GEN COREG* digoxin oral tablet 125 mcg 08/30/2014 TAKE 1 TABLET BY MOUTH EVERY DAY isosorbide mononitrate oral tablet extended release 24 hr 30 mg 08/30/2014 TAKE 1 TABLET BY MOUTH EVERY DAY *GEN IMDUR* furosemide oral tablet 20 mg 08/30/2014 TAKE 2 TABELTS BY MOUTH TWICE DAILY FOR 3 DAYS THEN TAKE 1 TABLET DAILY Voltaren topical gel 1 % 09/14/2014 apply 2 gram to the affected area(s) by topical route 4 times per day tamsulosin Oral capsule,extended release 24hr 0.4 mg 09/28/2014 09/23/2015 TAKE 1 CAPSULE BY MOUTH EVERY DAY lisinopril oral tablet 10 mg 09/28/2014 TAKE 1 TABLET BY MOUTH EVERY DAY FOR BLOOD PRESSURE diphenhydramine HCl oral capsule 50 mg 09/28/2014 TAKE 1 CAPSULE BY MOUTH EVERY SIX HOURS NEEDED loratadine oral tablet 10 mg 09/28/2014 TAKE 1 TABLET BY MOUTH EVERY DAY - GEN CLARITIN- metformin oral tablet 500 mg 11/15/2014 TAKE 1 TABLET BY MOUTH TWICE DAILY WITH MORNING AND EVENING MEALS Symbicort inhalation HFA aerosol inhaler 160-4.5 mcg/actuation 11/23/2014 INHALE 2 PUFFS BY MOUTH 2 TIMES PER DAY MORNING AND EVENING omega-3 acid ethyl esters oral capsule 1 gram 11/23/2014 TAKE 2 CAPSULES (2 GRAM) BY ORAL ROUTE 2 TIMES PER DAY FOR 30 DAYS zolpidem Oral Tablet 10 mg 11/23/2014 02/21/2015 take 1 tablet (10 mg) by oral route once daily at bedtime for 30 days hydralazine oral tablet 50 mg 12/23/2014 TAKE 1 TABLET BY MOUTH THREE TIMES A DAY clonidine HCl oral tablet 0.2 mg 12/23/2014 TAKE ONE TABLET BY MOUTH THREE TIMES DAILY NEEDED omeprazole oral capsule,delayed release(DR/EC) 40 mg 01/13/2015 07/12/2015 take 1 capsule by oral route 2 times a day for 30 days diphenhydramine HCl oral capsule 50 mg 01/21/2015 TAKE 1 CAPSULE BY MOUTH EVERY SIX HOURS NEEDED methocarbamol oral tablet 500 mg 01/24/2015 06/23/2015 take 1 tablet (500 mg) by oral route 4 times a day for 30 days methocarbamol oral tablet 500 mg 01/24/2015 TAKE ONE TABLET BY MOUTH FOUR TIMES A DAY oxycodone oral tablet 15 mg 02/17/2015 03/19/2015 take 1 tablet by oral route every 4 to 6 hours as needed for 30 days pain gabapentin oral capsule 300 mg 02/17/2015 08/16/2015 take 2 capsules (600 mg ) by oral route 3 times per day for 30 days Name Start Date Expiration Date SIG Comments Hydroxyzine HCl Oral Tablet 50 mg 09/20/2009 01/18/2010 take 1 tablet (50 mg ) by oral route 3 times per day Doxycycline Hyclate Oral Tablet 100 mg 12/06/2009 12/13/2009 take 1 tablet ( 100 mg) by oral route every 12 hours for 7 days Potassium Chloride Oral Tablet Sustained Release 10 mEq 05/15/2010 11/11/2010 take 1 tablet (10 meq) by oral route 2 times per day with food Bactrim DS Oral Tablet 800-160 mg 06/01/2010 06/08/2010 take 1 tablet by oral route every 12 hours for 7 days Levaquin Oral Tablet 500 mg 07/25/2010 08/01/2010 take 1 tablet (500 mg) by oral route once daily for 7 days Symbicort Inhalation HFA Aerosol Inhaler 160-4.5 mcg/Actuation 06/11/201112/07 inhale 2 puffs by inhalation route 2 times per day morning and evening Fioricet Oral Tablet 50-325-40 mg 08/22/2011 take 1 tablet by oral route every 4 hours as needed not to exceed 6 tablets per 24hrs diphenhydramine HCl Oral Tablet 50 mg 11/08/2011 02/06/2012 Take 1 tablet (50 mg) by oral route every six hours as needed for 30 days Levaquin Oral Tablet 750 mg 01/01/2012 01/08/2012 take 1 tablet (750 mg) by oral route once daily for 7 days Voltaren Topical Gel 1 % 08/04/2012 10/03/2012 apply 4 gram to affected area( s) by topical route 3 times per day Augmentin Oral tablet 500-125 mg 08/19/2012 08/26/2012 take 1 tablet by oral route every 12 hours for 7 days prednisone Oral tablet 10 mg 09/01/2012 09/06/2012 Take 1 by mouth once a day Albuterol Sulfate Inhalation Solution for Nebulization 2.5 mg /3 mL (0.083 %) 09/03/2012 09/03/2013 inhale 3 milliliters (2.5 mg) by nebulization route 4 times per day Levaquin Oral tablet 500 mg 10/09/2012 10/16/2012 take 1 tablet (500 mg) by oral route once daily for 7 days amoxicillin-pot clavulanate Oral tablet 500-125 mg 11/05/2012 11/12/2012 TAKE 1 TABLET BY ORAL ROUTE EVERY 12 HOURS FOR 7 DAYS loratadine Oral tablet 10 mg 11/06/2012 12/06/2012 TAKE 1 TABLET BY MOUTH EVERY DAY -GEN CLARITIN- clonidine Oral tablet 0.2 mg 11/17/2012 12/17/2012 TAKE ONE TABLET BY MOUTH THREE TIMES DAILY NEEDED Lovaza Oral capsule 1 gram 11/17/2012 12/17/2012 TAKE 2 CAPSULES (2 GRAM) BY ORAL ROUTE 2 TIMES PER DAY FOR 30 DAYS Vibramycin Oral capsule 100 mg 12/09/2012 12/19/2012 take 1 capsule (100 mg) by oral route every 12 hours for 10 days prednisone Oral tablet 20 mg 12/09/2012 12/18/2012 take 3 tabs PO x 3 days, then 2 tabs PO x 3 days, and then 1 tab PO x 3 days lisinopril Oral tablet 10 mg 04/15/2013 05/15/2013 TAKE 1 TABLET BY MOUTH EVERY DAY FOR BLOOD PRESSURE simvastatin Oral tablet 20 mg 06/25/2013 07/25/2013 TAKE 1 TABLET BY MOUTH DAILY AT BEDTIME famotidine Oral tablet 20 mg 06/25/2013 07/25/2013 TAKE 1 TABLET BY MOUTH TWO TIMES A DAY Bactrim DS Oral tablet 800-160 mg 07/21/2013 07/28/2013 take 1 tablet by oral route 2 times per day for 7 days guaifenesin Oral tablet extended release 600 mg 07/21/2013 07/31/2013 take 1 tablet (600 mg) by oral route every 12 hours for 10 days diphenhydramine HCl Oral Capsule 50 mg 08/14/2013 11/12/2013 TAKE 1 CAPSULE BY MOUTH EVERY SIX HOURS NEEDED furosemide Oral tablet 40 mg 08/24/2013 11/22/2013 TAKE 1 TABLET BY MOUTH EVERY DAY -FOR FLUID- *GEN LASIX* allopurinol Oral tablet 300 mg 08/24/2013 11/22/2013 TAKE 1 TABLET BY MOUTH ONCE DAILY carvedilol Oral tablet 12.5 mg 08/24/2013 11/22/2013 TAKE 1 TABLET BY MOUTH TWO TIMES A DAY *GEN COREG* isosorbide mononitrate Oral tablet extended release 24 hr 30 mg 08/24/201311/22 TAKE 1 TABLET BY MOUTH EVERY DAY *GEN IMDUR* digoxin Oral tablet 125 mcg 08/25/2013 11/23/2013 TAKE 1 TABLET BY MOUTH EVERY DAY Augmentin oral tablet 500-125 mg 10/05/2013 10/12/2013 take 1 tablet by oral route every 12 hours for 7 days dicyclomine oral capsule 10 mg 10/29/2013 11/03/2013 take 1 capsule (10 mg) by oral route 3 times per day for 5 days Cipro oral tablet 500 mg 10/29/2013 11/03/2013 take 1 tablet (500 mg) by oral route every 12 hours for 5 days Levaquin oral tablet 750 mg 12/08/2013 12/15/2013 take 1 tablet (750 mg) by oral route once daily for 7 days Levaquin oral tablet 500 mg 01/05/2014 01/12/2014 take 1 tablet (500 mg) by oral route once daily for 7 days montelukast oral tablet 10 mg 03/02/2014 03/09/2014 take 1 tablet (10 mg) by oral route once daily in the evening for 7 days metformin oral tablet 500 mg 05/14/2014 11/10/2014 take 1 tablet (500 mg) by oral route 2 times per day with morning and evening meals for 30 days baclofen oral tablet 10 mg 07/19/2014 11/16/2014 take 0.5 tablet by oral route 3 times a day for 30 days amantadine HCl oral tablet 100 mg 10/05/2014 10/10/2014 take 1 tablet (100 mg ) by oral route 2 times per day for 5 days amantadine HCl oral tablet 100 mg 11/11/2014 11/16/2014 take 1 tablet (100 mg ) by oral route 2 times per day for 5 days amoxicillin oral capsule 500 mg 11/11/2014 11/18/2014 take 1 capsule (500 mg) by oral route every 12 hours for 7 days Cipro oral tablet 500 mg 01/13/2015 01/20/2015 take 1 tablet (500 mg) by oral route every 12 hours for 7 days Discontinued Name Start Date Discontinued Date SIG Comments Neurontin Oral Capsule 300 mg 11/03/2009 1 tab q hs already on list NitroQuick Sublingual Tablet, 0.4 mg 11/03/2009 place 1 tablet (0.4 mg) by sublingual route at the 1st sign of an attack; may repeat every 5 min until relief; if pain persists after of 3 tablets in 15 min, prompt medical attention is recommended no longer has this med Zolpidem Oral Tablet 10 mg 02/08/2010 take 1 tablet (10 mg) by oral route once daily at bedtime Tricor Oral Tablet 145 mg 11/03/2009 take 1 tablet (145 mg) by oral route once daily no longer taking Hydralazine Oral Tablet 100 mg 06/14/2010 take 1 tablet (100 mg) by oral route 3 times per day with food Isosorbide Mononitrate Oral Tablet Sustained Release 24 hr 30 mg 09/20/2009 take 1 tablet (30 mg) by oral route once daily in the morning for 30 days dose change Pepcid Oral Tablet 20 mg 10/20/2009 11/03/2009 take 1 tablet (20 mg) by oral route 2 times per day for 30 days already on list Lisinopril Oral Tablet 40 mg 06/14/2010 take 1 tablet (40 mg) by oral route once daily Isosorbide Mononitrate Oral Tablet Sustained Release 24 hr 60 mg 06/14/2010 take 1 tablet by oral route daily Proventil HFA Inhalation Aerosol Inhaler 90 mcg/Actuation 11/03/20092013 inhale 1 puff by inhalation route every 6 hours/QID Prednisone Oral Tablet 10 mg 12/06/2009 02/08/2010 Take 1 MG/KG (10 mg) by oral route daily Warfarin Oral Tablet 6 mg 12/14/2009 05/06/2013 take 1 tablet (6 mg) by oral route once daily for 30 days changed to Xalreto by Dr. Yesenia Cuevas Topical Adhesive Patch, Medicated 5 %(700 mg/patch) 02/08/20102011 apply 2 patches by transdermal route once daily (May wear up to 12hours.) for 30 days Patch doesn't stay on Singulair Oral Tablet 10 mg 03/15/2010 05/14/2014 take 1 tablet (10 mg) by oral route once daily in the evening Carvedilol Oral Tablet 25 mg 04/17/2010 06/14/2010 1 1/2 tabs BID Amlodipine Oral Tablet 10 mg 05/11/2010 06/19/2010 take 1 tablet (10 mg) by oral route once daily for 30 days Discontinued by Hospitalist at [facility] Augmentin Oral Tablet 875-125 mg 11/07/2010 03/05/2011 take 1 tablet by oral route every 12 hours Docusate Sodium Oral Capsule 100 mg 01/08/2011 05/14/2014 take 1 capsule by oral route daily hyoscyamine sulfate Oral Tablet 0.125 mg 07/26/2011 12/09/2012 take 1 tablet by oral route 2 times a day hydroxyzine HCl Oral Tablet 50 mg 09/10/2011 11/08/2011 TAKE 1 TABLET BY MOUTH THREE TIMES A DAY NEEDED Formulary Compliance promethazine-codeine Oral Syrup 6.25-10 mg/5 mL 10/01/2011 05/14/2012 take 5 milliliters by oral route every 4-6 hours as needed, not to exceed 30 mL in 24 hours promethazine Oral Tablet 25 mg 10/11/2011 10/31/2011 TAKE 1 TABLET BY MOUTH EVERY 6 HOURS NEEDED NAUSEA prochlorperazine maleate Oral Tablet 5 mg 10/31/2011 05/14/2012 take 1 tablet by oral route every 6 to 8 hours as needed prednisone Oral Tablet 10 mg 01/01/2012 05/14/2012 take 2 tablets (20 mg) by oral route once daily for 3 days then 1 tablet (10 mg) once daily for 2 days Ambien Oral Tablet 10 mg 02/25/2012 05/19/2012 take 1 tablet (10 mg) by oral route once daily at bedtime for 30 days generic on list guaifenesin Oral tablet extended release 600 mg 05/06/2012 07/21/2013 take 1 tablet (600 mg) by oral route every 12 hours as needed amoxicillin-pot clavulanate Oral tablet 500-125 mg 05/06/2012 05/14/2012 take 1 tablet by oral route every 12 hours Miralax Oral Powder in Packet 17 gram 07/16/2012 05/14/2014 take 1 packet ( 17 gram) mixed with 8 oz. water, juice, soda, coffee or tea by oral route once daily baclofen Oral tablet 10 mg 02/26/2013 10/28/2013 take 1 tablet (10 mg) by oral route 3 times a day hydrocodone-acetaminophen oral tablet 10-500 mg 08/25/2013 11/23/2013 take 1 tablet (10-500 mg) by oral route every 4 hours for 30 days Levaquin oral tablet 750 mg 09/22/2013 09/29/2013 take 1 tablet (750 mg) by oral route once daily prednisone oral tablet 20 mg 09/22/2013 10/29/2013 take 2 tabs(40mg) daily times 2 days, then 20mg daily for 4 days Sudafed oral tablet 30 mg 05/14/2014 promethazine oral tablet 25 mg 10/29/2013 05/14/2014 take 1 tablet (25 mg) by oral route every 6 hours as needed furosemide oral tablet 40 mg 11/20/2013 05/14/2014 TAKE 1 TABLET BY MOUTH EVERY DAY -FOR FLUID- *GEN LASIX* methocarbamol oral tablet 500 mg 02/04/2014 03/24/2014 take 1 tablet (500 mg) by oral route 4 times a day for 30 days Augmentin oral tablet 500-125 mg 03/02/2014 05/14/2014 take 1 tablet by oral route every 12 hours Synvisc-One intra-articular syringe 48 mg/6 mL 04/28/2014 05/14/2014 inject 6 milliliters by intra-articular route into the right knee Levaquin oral tablet 500 mg 05/20/2014 07/14/2014 take 1 tablet (500 mg) by oral route once daily famotidine oral tablet 20 mg 06/07/2014 09/07/2014 TAKE 1 TABLET BY MOUTH TWO TIMES A DAY cyclobenzaprine oral tablet 10 mg 07/14/2014 07/19/2014 take 1 tablet (10 mg ) by oral route 3 times per day as needed headaches gabapentin oral capsule 100 mg 07/19/2014 11/11/2014 take 1 capsule by oral route 3 times a day for 30 days with the 300 mg capsule dose change penicillin V potassium oral tablet 500 mg 11/11/2014 11/11/2014 take 1 tablet (500 mg) by oral route 2 times per day for 7 days Not available at the pharmacy hydrocodone-acetaminophen oral tablet 10-325 mg 01/04/2015 01/12/2015 take 2 tablets by oral route 2 times a day as needed for 30 days Problem List Description Status Onset SI [...] HC BMI BSA BMI Percentile O2 Sat(%) 02/17/2015 1:39:00 PM 142 mmHg 78 mmHg [...] children GED Denies illicit substance abuse Alcohol occassional,less than 3-4 drinks pear year Sedentary disabeled Did not serve Tobacco Current every day smoker History of Procedures Date Ordered Description Order Status 06/19/2011 12:00 AM DRAIN/INJ JOINT/BURSA W/O US Reviewed 11/03/2009 12:00 AM PROTHROMBIN TIME Reviewed 07/26/2011 12:00 AM X-RAY EXAM OF ABDOMEN Reviewed 10/12/2011 12:00 AM EXTREMITY STUDY Reviewed 01/16/2012 12:00 AM DRAIN/INJ JOINT/BURSA W/O US Reviewed 02/05/2012 12:[address] ABDOMEN W/O & W/DYE Reviewed 02/05/2012 12:[address] PELVIS W/O & W/DYE Reviewed 05/29/2012 12:00 AM DRAIN/INJ JOINT/BURSA W/O US Reviewed 06/05/2012 12:00 AM DRAIN/INJ JOINT/BURSA W/O US Reviewed 06/12/2012 12:00 AM DRAIN/INJ JOINT/BURSA W/O US Reviewed 07/16/2012 12:00 AM Hepatobiliary ductal system imaging with functional assessment Reviewed 07/16/2012 12:00 AM COMPREHEN METABOLIC PANEL Reviewed 07/16/2012 12:00 AM LIPID PANEL Reviewed 08/19/2012 12:00 AM METABOLIC PANEL TOTAL CA Reviewed 08/19/2012 12:00 AM METABOLIC PANEL TOTAL CA Reviewed 12/21/2009 12:[address] ABDOMEN W/O & W/DYE Reviewed 10/02/2012 12:00 AM CHEST X-RAY 2VW FRONTAL&LATL Reviewed 12/09/2012 12:00 AM CHEST X-RAY 2VW FRONTAL&LATL Returned 12/09/2012 12:00 AM ASSAY OF TROPONIN QUANT Returned 12/09/2012 12:00 AM ASSAY OF MYOGLOBIN Returned 12/09/2012 12:00 AM FIBRIN DEGRADATION QUANT Returned 12/09/2012 12:00 AM CREATINE MB FRACTION Returned 12/09/2012 12:00 AM COMPREHEN METABOLIC PANEL Returned 12/09/2012 12:00 AM ASSAY OF NATRIURETIC PEPTIDE Returned 01/29/2013 12:00 AM DRAIN/INJ JOINT/BURSA W/O US Reviewed 02/26/2013 12:[address] NECK SPINE W/O & W/DYE Reviewed 04/07/2013 12:00 AM INJECT TRIGGER POINTS 3/> Reviewed 07/21/2013 12:00 AM CHEST X-RAY 2VW FRONTAL&LATL Reviewed 09/22/2013 12:00 AM CHEST X-RAY 2VW FRONTAL&LATL Returned 10/29/2013 12:00 AM X-RAY EXAM OF ABDOMEN Reviewed 12/08/2013 12:00 AM THER/PROPH/DIAG INJ SC/IM Reviewed 12/08/2013 12:00 AM CHEST X-RAY 2VW FRONTAL&LATL Returned 12/18/2013 12:00 AM COMPLETE CBC W/AUTO DIFF WBC Returned 12/18/2013 12:00 AM COMPREHEN METABOLIC PANEL Returned 12/18/2013 12:00 AM LIPID PANEL Returned 12/18/2013 12:00 AM GLYCOSYLATED HEMOGLOBIN TEST Returned 12/18/2013 12:00 AM MICROALBUMIN QUANTITATIVE Returned 12/18/2013 12:00 AM URINE CULTURE/COLONY COUNT Returned 12/18/2013 12:00 AM ASSAY OF NATRIURETIC PEPTIDE Returned 12/23/2013 12:[address] LUMBAR SPINE W/O DYE Returned 03/15/2010 12:00 AM PROTHROMBIN TIME Reviewed 06/01/2010 [...] AM N BLOCK INJ INTERCOST SNG Reviewed 05/05/2014 12:00 AM DRAIN/INJ JOINT/BURSA W/O US Reviewed 05/06/2014 12:00 AM COMPREHEN METABOLIC PANEL Reviewed 05/06/2014 12:00 AM ASSAY OF NATRIURETIC PEPTIDE Reviewed 05/06/2014 12:00 AM GLYCOSYLATED HEMOGLOBIN TEST Reviewed 05/06/2014 12:00 AM MICROALBUMIN QUANTITATIVE Reviewed 05/06/2014 12:00 AM LIPID PANEL Reviewed 05/06/2014 12:00 AM LIPID PANEL Reviewed 05/06/2014 12:00 AM LIPID PANEL Reviewed 05/06/2014 12:00 AM LIPID PANEL Reviewed 05/20/2014 12:00 AM CHEST X-RAY 2VW FRONTAL&LATL Reviewed 05/20/2014 12:00 AM COMPLETE CBC W/AUTO DIFF WBC Reviewed 11/07/2010 12:00 AM METABOLIC PANEL TOTAL CA Reviewed 11/07/2010 12:00 AM ASSAY OF NATRIURETIC PEPTIDE Reviewed 11/29/2010 12:00 AM INJECT TRIGGER POINTS 3/> Reviewed 01/08/2011 12:00 AM X-RAY EXAM OF ABDOMEN Reviewed 10/14/2014 12:00 AM X-RAY EXAM L-S SPINE 2/3 VWS Returned 03/05/2011 12:00 AM ECHO EXAM OF ABDOMEN Reviewed 03/12/2011 12:00 AM URINALYSIS AUTO W/O SCOPE Reviewed 03/05/2011 12:00 AM URINALYSIS AUTO W/O SCOPE Reviewed Results Summary Data and Description Results [...] 9.30 mg/ dLeGFR 58 06/14/2010 10:19 AM GLYCOHEMOGLOBIN A1C 7.40 %GLUCOSE 122.0 mg/dLSODIUM 138.0 mmol/LPOTASSIUM 4.80 mmol/LCHLORIDE 104.0 mmol/LCO2 24.0 mmol/LBUN 14.0 mg/ dLCREATININE 1.10 mg/dLCALCIUM 9.50 mg/dLeGFR >60 mL/min/1.73 m2 [...] TRICHOMONAS NEGATIVE YEAST NEGATIVE HGB A1C 8.20 %TRIGLYCERIDES 210.0 mg/dLCHOLESTEROL 213.0 mg/dLHDL 46.0 mg/dLLDL (CALC) 125.0 mg/dLGLUCOSE 187.0 mg/dLSODIUM 136.0 mmol/LPOTASSIUM 4.40 mmol/LCHLORIDE 98.0 mmol/LCO2 24.0 mmol/LBUN 16.0 mg/ dLCREATININE 1.20 mg/dLSGOT/AST 14.0 IU/LSGPT/ALT 19.0 IU/LALK PHOS 127.0 IU/ LTOTAL PROTEIN 7.80 g/dLALBUMIN 4.0 g/dLTOTAL BILI 0.30 mg/dLCALCIUM 9.40 mg/ dLeGFR 60 PSA TOTAL 0.60 ng/mL 05/07/2014 8:57 AM BNP 26.0 pg/mLMICROALBUMIN UR 353.0 ug/mLTRIGLYCERIDES 236.0 mg/dLCHOLESTEROL 203.0 mg/dLHDL 32.0 mg/dLLDL (CALC) 124.0 mg/dLGLUCOSE 172.0 mg/dLSODIUM 139.0 mmol/LPOTASSIUM 4.80 mmol/LCHLORIDE 101.0 mmol/LCO2 28.0 mmol/LBUN 13.0 mg/dLCREATININE 1.20 mg/dLSGOT/AST 18.0 IU/LSGPT/ALT 15.0 IU /LALK PHOS 86.0 IU/LTOTAL PROTEIN 7.30 g/dLALBUMIN 3.80 g/dLTOTAL BILI 0.40 mg/ dLCALCIUM 9.40 mg/dLeGFR 60 HGB A1C 8.60 % 05/20/2014 10:45 AM WBC 12.6 RBC 5.17 HGB 15.10 g/dLHCT 45.80 %MCV 89.0 fLMCH 29.20 pgMCHC 33.0 g/dLRDW CV 15.60 %MPV 9.80 fLPLT 303 %NEUT 57.90 %%LYMP 32.80 %%MONO 7.0 %%EOS 1.90 %%BASO 0.40 %#NEUT 7.26 #LYMP 4.12 #MONO 0.88 #EOS 0.24 # BASO 0.05 History Of Immunizations Not available. History of [...] 05 2011 3:21PM Pain in joint; Knee,right Mar 22 2011 11:15AM Pain in joint; Knee,right Sep 14 [...] knee Sep 6 2011 9:42AM Osteoarthritis, knee Jun 05 2012 [...] Congestive Heart Failure Feb 2013 9:08AM Hypertension Oct 29 2013 9:08AM Diabetes Mellitus, Type II b [...] disease Nov 11 2014 2:04PM Lumbar Radiculitis b 2014 2:04PM Cervicalgia b 2014 2:04PM Muscle Spasm b 2014 2:04PM Pain in joint; Knee,right Nov 11 2014 2:04PM Cervical radiculopathy b 2014 2:04PM Myofascial pain b 2014 2:47PM Cervical Spinal stenosis Nov 11 [...] 1:07PM Cervical radiculopathy Feb 17 2015 1:07PM Payers Insurance Name Company Name Plan Name Plan Number Policy Number Policy Group Number Start Date Medicare Part A Medicare Part A [id number] N/A [employer] [place] [phone] N/A [place] Medical Assistance [facility] Medical Assistance Pro [id number] N/A Medicare Part B Medicare Of [place] [id number] Friday, 2008 History of Encounters Visit Date Visit Type Provider 02/17/2015 Office visit Katty CRAIG 02/17/2015 Office visit Melecio Wilkinson DO 01/19/2015 Office visit Katty CRAIG 01/13/2015 Office visit Melecio Wilkinson DO 01/12/2015 Office visit Katty CRAIG 12/16/2014 [facility] Alfa Platt MD 12/14/2014 Voided Melecio Wilkinson DO 12/08/2014 Office visit Melecio Wilkinson DO 12/08/2014 Office visit Alfa Platt MD 12/07/2014 Nurse visit Riri Salazar MD 12/02/2014 [facility] Alfa Platt MD 12/02/2014 [facility] Magi Powers MD 11/29/2014 Voided Katty CRAIG 11/29/2014 [facility] Magi Powers MD 11/11/2014 Office visit Melecio Wilkinson DO 11/11/2014 Office visit Katty CRAIG 10/14/2014 Office visit Katty CRAIG 09/14/2014 Office visit Katty CRAIG 09/08/2014 Hospital Ama Barrios MD 09/07/2014 Office visit Melecio Jaja DO 08/16/2014 Nurse visit Katty Jefferson CAR BLOCKER 07/19/2014 Office visit Katty Jefferson CAR BLOCKER 07/14/2014 Office visit Melecio Jaja DO 06/21/2014 Office visit Katty Jefferson CAR BLOCKER 05/20/2014 Office visit Melecio Jaja DO 05/14/2014 Office visit Melecio Jaja DO 05/05/2014 Office visit Katty Jefferson CAR BLOCKER 04/26/2014 Office visit Katty DURÁNP 03/24/2014 Office visit Katty Jefferson CAR BLOCKER 02/24/2014 Office visit Katty Jefferson CAR BLOCKER 01/05/2014 Office visit Melecio Jaja DO 12/23/2013 Office visit Melecio Jaja DO 12/23/2013 Office visit Katty DURÁNP 12/18/2013 Office visit Janis Navarrete CENTRAL OFFICE REPAIRER 12/08/2013 Office visit Janis Navarrete CENTRAL OFFICE REPAIRER 11/25/2013 Office visit Katty DURÁNP 10/29/2013 Office visit Melecio Wilkinson DO 09/22/2013 Office visit Janis Navarrete CENTRAL OFFICE REPAIRER 07/28/2013 Office visit Katty DURÁNP 07/21/2013 Office visit Melecio Wilkinson DO 07/08/2013 Office visit Katty CRAIG 05/06/2013 Office visit Melecio Wilkinson DO 04/07/2013 Office visit Gorge Yo MD 02/26/2013 Office visit Melecio Wilkinson DO 01/29/2013 Office visit Gorge Yo MD 01/06/2013 Office visit Gorge Yo MD 12/09/2012 Office visit Stephanie Richardson CENTRAL OFFICE REPAIRER 12/09/2012 [facility] Ama Barrios MD 11/26/2012 Office visit Gorge Yo MD 10/30/2012 Hospital Gorge Yo MD 10/29/2012 Office visit [...] 05/14/2012 Office visit Gorge Yo MD 05/12/2012 [facility] DO 05/11/2012 [facility] DO 03/13/2012 Office visit Gorge Yo [...] 03/05/2011 Office visit Melecio Wilkinson DO 02/06/2011 [facility] Gorge Yo MD 01/08/2011 Office [...] MD 03/31/2010 Laboratory Alfonso Camacho MD 03/31/2010 [facility] Alfonso Camacho MD 03/21/2010 Procedures [...]
--- OUTSIDE RECORDS SUMMARY | 2018-01-22 10:53 | XMS REPORT ---
Author Author Melecio Wilkinson [facility] Address [address] [place] [phone] Care Team Providers Care Pineapple Plantation Manager Name Role Phone Melecio Wilkinson PCP Unavailable [...] EVERY DAY 30 MINUTES BEFORE A MEAL omega-3 acid ethyl esters 1 gram oral capsule 11/10/2015 TAKE 2 CAPSULES ( 2 GRAM) BY ORAL ROUTE 2 TIMES PER DAY FOR 30 DAYS zolpidem 10 mg oral tablet 11/11/2015 01/10/2016 take 1 tablet (10 mg) by oral route once daily at bedtime for 30 days clonidine HCl 0.2 mg oral tablet 11/21/2015 TAKE ONE TABLET BY MOUTH THREE TIMES DAILY NEEDED Lyrica 50 mg oral capsule 11/21/2015 05/19/2016 take 1 capsule by oral route 2 times a day for 30 days lisinopril 20 mg oral tablet 12/08/2015 TAKE 1 TABLET BY MOUTH DAILY gentamicin 0.3 % ophthalmic drops 12/13/2015 instill 2 drops into affected eye(s) by ophthalmic route 4 times a day oxycodone 20 mg oral tablet 12/19/2015 01/18/2016 take 1 tablet by oral route every 4 to 6 hours for 30 days pain Name Start Date Expiration Date SIG Comments [...] for 30 days Discontinued by Hospitalist at [place] Augmentin 875-125 mg oral tablet 11/07/2010 03/05/2011 [...] HC BMI BSA BMI Percentile O2 Sat(%) 12/20/2015 1:42:00 PM 160 mmHg 84 mmHg [...] 07/11/2015 12:00 AM Kenalog, Per 10 Mg [facility]#2680-6268-77 Reviewed 06/19/2011 12:00 AM DRAIN/INJ JOINT/BURSA W/O US Reviewed 06/19/2011 12:00 AM Kenalog 40 Mg [facility]#4314-1362-72 Reviewed 08/25/2015 12:00 AM OFFICE/OUTPATIENT VISIT EST Reviewed 08/23/2015 12:00 AM Decadron, Per 1 Mg [facility]# [address]-78 Reviewed 08/23/2015 12:00 AM Depo-Medrol, Per 80 Mg [facility]#[address]-97 Reviewed 09/07/2015 12:00 AM X-RAY EXAM L-S [...] Reviewed 01/01/2012 12:00 AM Rocephin 1 gm [facility]#[address]-34 Reviewed 01/16/2012 12:00 AM DRAIN/INJ JOINT/BURSA W/O US Reviewed 01/16/2012 12:00 AM Kenalog per 10Mg [facility]#[address]-90(Srinath) Reviewed 02/05/2012 12:[address] ABDOMEN W/O & W/DYE Reviewed 02/05/2012 12:[address] PELVIS W/O & W/DYE Reviewed 05/29/2012 12:00 AM DRAIN/INJ JOINT/BURSA W/O US Reviewed 05/29/2012 12:00 AM SYNVISC, Per 1 Mg (2ml) [facility] [address]-57 Reviewed 06/05/2012 12:00 AM DRAIN/INJ JOINT/BURSA W/O US Reviewed 06/05/2012 12:00 AM SYNVISC, Per 1 Mg (2ml) [facility] [address]-72 Reviewed 06/12/2012 12:00 AM DRAIN/INJ JOINT/BURSA W/O US Reviewed 06/12/2012 12:00 AM SYNVISC, Per 1 Mg (2ml) [facility] [address]-40 Reviewed 07/16/2012 12:00 AM Hepatobiliary ductal system imaging with functional assessment Reviewed 07/16/2012 12:00 AM Decadron 8 mg [facility]#[id number] Reviewed 07/16/2012 12:00 AM Depo-Medrol 80mg [facility]#[id number] Reviewed 07/16/2012 12:00 AM COMPREHEN METABOLIC PANEL Reviewed 07/16/2012 12:00 AM LIPID PANEL Reviewed 07/16/2012 12:00 AM Flu Injection 3 Years And Above [facility]# [address]-71 RHC Reviewed 08/19/2012 12:00 AM METABOLIC PANEL TOTAL CA Reviewed 12/21/2009 12:[address] ABDOMEN W/O & W/DYE Reviewed 10/02/2012 12:00 AM CHEST X-RAY 2VW FRONTAL&LATL Reviewed 10/09/2012 12:00 AM Decadron 8 mg [place]#[id number] Reviewed 10/09/2012 12:00 AM Depo-Medrol 80mg [facility]#[id number] Reviewed 12/09/2012 12:00 AM CHEST X-RAY 2VW [...] 12:00 AM SYNVISC-ONE, Per 1 Mg (6ml) [facility] [address]-78 Reviewed 02/26/2013 12:[address] NECK SPINE W/O & W/DYE Reviewed 04/07/2013 12:00 AM INJECT TRIGGER POINTS 3/> Reviewed 04/07/2013 12:00 AM Kenalog per 10Mg Im-[facility]#[address]-83(Srinath) Reviewed 07/21/2013 12:00 AM CHEST X-RAY 2VW FRONTAL&LATL Reviewed 07/21/2013 12:00 AM Decadron 8 mg [facility]# [address]-69 Reviewed 07/21/2013 12:00 AM Depo-Medrol 80 mg [facility]#[address]-67 Reviewed 07/21/2013 12:00 AM Rocephin 500 mg [facility]#5438-5984-14 Reviewed 09/22/2013 12:00 AM CHEST X-RAY 2VW FRONTAL&LATL Returned 10/29/2013 12:00 AM X-RAY EXAM OF ABDOMEN Reviewed 12/08/2013 12:00 AM THER/PROPH/DIAG INJ SC/IM Reviewed 12/08/2013 12:00 AM Decadron, Per 1 Mg [facility]# [address]-85 Reviewed 12/08/2013 12:00 AM Depo-Medrol, Per 80 Mg [facility]#5560-9213-35 Reviewed 12/08/2013 12:00 AM CHEST X-RAY 2VW [...] Returned 01/05/2014 12:00 AM Decadron 8 mg [facility]# [address]-75 Reviewed 01/05/2014 12:00 AM Depo-Medrol 80 mg [facility]#[address]-85 Reviewed 01/05/2014 12:00 AM Rocephin 1 gram [facility]#0186-1885-44 Reviewed 03/15/2010 12:00 AM PROTHROMBIN TIME Reviewed [...] Reviewed 09/28/2010 12:00 AM Kenalog per 10Mg [facility]#[address]-18(Srinath) Reviewed 05/05/2014 12:00 AM DRAIN/INJ JOINT/BURSA W/O US Reviewed 05/05/2014 12:00 AM SYNVISC-ONE, Per 1 Mg (6ml) [facility] [address]-90 Reviewed 05/06/2014 12:00 AM COMPREHEN METABOLIC PANEL [...] Reviewed 11/07/2010 12:00 AM Rocephin 500 mg [facility]#[address]-96 Reviewed 07/14/2014 12:00 AM Fluzone MEDICARE Only Reviewed 11/29/2010 12:00 AM INJECT TRIGGER POINTS 3/> Reviewed 11/29/2010 12:00 AM Kenalog per 10Mg [facility]#[address]-23(Srinath) Reviewed 07/14/2014 12:00 AM Decadron injection Reviewed [...] in joint; Knee,right George 30 2010 11:15AM Pain in joint; Knee,right Sep [...] b 2013 9:08AM Diabetes Mellitus, Type II Oct [...] disease Nov 11 2014 2:04PM Lumbar Radiculitis Fe2014 2:04PM Cervicalgia b 2014 2:04PM Muscle Spasm Fe2014 2:04PM Pain in joint; Knee,right Nov 11 2014 2:04PM Cervical radiculopathy Fe2014 2:04PM Myofascial pain Feb 2014 2:47PM Cervical [...] Edema, unspecified type Dec 20 2015 1:45PM Payers Insurance Name Company Name Plan Name Plan Number Policy Number Policy Group Number Start Date Medicare Part A Medicare Part A [id number] N/A [employer] - [place] [employer] [place] [id number] Wednesday, 2015 [facility] - RHC - [facility] Plan [facility] Comm [id number] Wednesday, 2015 [employer] [phone] N/A [place] Medical Assistance [facility] Medical Assistance Prog [id number] N/A Medicare Part B Medicare Of [place] [id number] Friday, 2008 History of Encounters Visit Date Visit Type Provider 12/20/2015 Office visit Melecio Wilkinson DO 11/21/2015 [...] 05/16/2015 Office visit 05/16/2015 Office visit Melecio Wilkinson DO 05/09/2015 Office visit Melecio Cruzte DO 04/26/2015 Office visit Katty CRAIG 04/08/2015 Office visit Melecio Cruzte DO 04/07/2015 Voided Melecio Jaja DO 03/29/2015 Office visit Katty CRAIG 03/28/2015 Office visit Melecio Cruzte DO 03/15/2015 Office visit Katty CRAIG 02/28/2015 Office visit Melecio Cruzte DO 02/17/2015 Office visit Melecio Cruzte DO 02/17/2015 Office visit Katty CRAIG 01/19/2015 Office visit Katty CRAIG 01/13/2015 Office visit Melecio Cruzte DO 01/12/2015 Office visit Katty CRAIG 12/16/2014 [facility] Alfa Platt MD 12/14/2014 Voided Melecio Wilkinson DO 12/08/2014 Office visit Alfa Platt MD 12/08/2014 Office visit Melecio Wilkinson 12/07/2014 Nurse visit Riri Salazar MD 12/02/2014 [facility] Alfa Platt MD 12/02/2014 [facility] Magi Powers MD 11/29/2014 [facility] Gio STRONG 11/29/2014 Voided Katty CRAIG 11/11/2014 Office visit 11/11/2014 Office visit Katty CRAIG 11/11/2014 Office visit Melecio Cruzte DO 10/14/2014 Office visit Katty CRAIG 09/14/2014 Office visit Katty CRAIG 09/08/2014 [facility] Ama Barrios MD 09/07/2014 Office visit Melecio Cruzte DO 08/16/2014 Nurse visit Katty CRAIG 07/19/2014 Office visit Katty CRAIG 07/14/2014 Office visit Melecio Jaja DO 06/21/2014 Office visit Katty CRAIG 05/20/2014 Office visit Melecio Jaja DO 05/14/2014 Office visit Melecio Jaja DO 05/05/2014 Office visit Katty CRAIG 04/26/2014 Office visit Katty CRAIG 03/24/2014 Office visit aKtty CRAIG 02/24/2014 Office visit Kattyalton [place] BANKRUPTCY PARALEGAL 01/05/2014 Office visit Melecio Wilkinson DO 12/23/2013 Office visit Katty [place] BANKRUPTCY PARALEGAL 12/23/2013 Office visit Melecio Wilkinson DO 12/18/2013 Office visit Janis Navarrete BRIM POUNCER 12/08/2013 Office visit Janis Navarrete BRIM POUNCER 11/25/2013 Office visit Katty [place] BANKRUPTCY PARALEGAL 10/29/2013 Office visit Melecio Wilkinson DO 09/22/2013 Office visit Janis Navarrete BRIM POUNCER 07/28/2013 Office visit Katty M. Ronny BANKRUPTCY PARALEGAL 07/21/2013 Office visit Melecio Wilkinson DO 07/08/2013 Office visit Katty [place] BANKRUPTCY PARALEGAL 05/06/2013 Office visit Melecio Wilkinson DO 04/07/2013 Office visit Gorge Yo MD 02/26/2013 Office visit Melecio Wilkinson DO 01/29/2013 Office visit Gorge Yo MD 01/06/2013 Office visit Gorge Yo MD 12/09/2012 [facility] Ama Barrios MD 12/09/2012 Office visit Stephanie Richardson BRIM POUNCER 11/26/2012 Office visit Gorge Yo MD 10/30/2012 [facility] Gorge Yo MD 10/29/2012 Office visit [...] 05/14/2012 Office visit Gorge Yo MD 05/12/2012 [facility] DO 05/11/2012 [facility] DO 03/13/2012 Office visit Gorge Yo [...] 03/05/2011 Office visit Melecio Wilkinson DO 02/06/2011 [facility] Gorge Yo MD 01/08/2011 Office visit Melecio Wilkinson DO 12/27/2010 Office visit Gorge Yo MD 11/29/2010 Office visit Gorge Yo MD 11/07/2010 Office visit Melecio Wilkinson DO 09/28/2010 Office visit Gorge Yo MD 09/05/2010 [facility] Gorge oY MD 08/28/2010 Office visit Gorge Yo MD 08/07/2010 Office visit Janis Navarrete APRN 07/25/2010 Office visit Melecio Wilkinson DO 06/27/2010 Office visit Gorge Yo MD 06/14/2010 Office visit Melecio Wilkinson DO 06/06/2010 Laboratory Alfonso Camacho MD 06/01/2010 Office visit Melecio Wilkinson DO 04/17/2010 Office visit Melecio Wilkinson DO 04/06/2010 Office visit Gorge Yo MD 04/02/2010 [facility] Alfonso Camacho MD 03/31/2010 Laboratory Alfonso Camacho MD 03/31/2010 Laboratory Alfonso Camacho MD 03/31/2010 [facility] Alfonso Camacho MD 03/21/2010 Procedures Gorge [...] visit Gorge Yo MD 08/25/2009 Procedures Gorge oY MD 08/23/2009 Office visit Gorge Yo MD 07/06/2009 Laboratory Vamshi Aguero MD 06/27/2009 Office visit Gorge Yo MD 06/17/2009 Office visit Vamshi Aguero MD 05/24/2009 Office visit Gorge Yo MD
[2018-01-22 10:54] LABS: HEMOGLOBIN 12.6 G/DL (13.3-17.7); MEAN PLATELET VOLUME 8.8 FL (7.4-10.4); RED BLOOD COUNT 4.57 10^6/uL (4.35-5.85); RED CELL DISTRIBUTION WIDTH 18.8 % (10.0-14.5); WHITE BLOOD COUNT 8.8 10^3/uL (4.3-11.0)
--- OUTSIDE RECORDS SUMMARY | 2018-01-22 10:57 | XMS REPORT ---
Author Author Melecio Wilkinson [facility] Address [address] [place], [place] [phone] Care Team Providers Care Skein Straightener Name Role Phone Melecio Wilkinson PCP Melecio [...] 02/12/2018 TAKE 1 TABLET BY MOUTH DAILY omeprazole 40 mg oral capsule,delayed release(DR/EC) 09/17/2017 03/16/2018 TAKE 1 CAPSULE BY MOUTH TWICE DAILY albuterol sulfate 2.5 mg /3 mL (0.083 %) inhalation solution for nebulization 10/17/2017 inhale 3 milliliters (2.5 mg) by nebulization route 4 times per day Dx: J44.9 D02.21 Symbicort 160-4.5 mcg/actuation inhalation HFA aerosol inhaler 10/17/201705/15 INHALE 2 PUFFS BY MOUTH 2 TIMES PER DAY MORNING AND EVENING guaifenesin 600 mg oral tablet extended release 12hr 10/22/2017 take 1 tablet (600 mg) by oral route every 12 hours terbinafine HCl 250 mg oral tablet 11/07/2017 take 1 tablet (250 mg) by oral route once daily ketoconazole 2 % topical cream 11/14/2017 apply to the affected area(s) by topical route 2 times per day zolpidem 10 mg oral tablet 11/21/2017 01/20/2018 take 1 tablet (10 mg) by oral route once daily at bedtime for 30 days oxycodone 30 mg oral tablet,oral only,ext.rel.12 hr 12/20/2017 01/19/2018 take 1 tablet (30 mg) by oral route every 8 hours for 30 days oxycodone 20 mg oral tablet 12/20/2017 01/19/2018 take 1 tablet by oral route q6h [...] per day after meals for 2 days Symproic 0.2 mg oral tablet 11/14/2017 11/28/2017 take 1 tablet (0.2 mg) by oral route once daily for 14 days Discontinued Name Start Date Discontinued Date [...] oral route once daily for 5 days prednisone 20 mg oral tablet 08/27/2017 11/07/2017 take 2 tablets (40 mg) by oral route once daily for 5 days Levaquin 500 mg oral tablet 10/10/2017 11/07/2017 take 1 tablet (500 mg) by oral route once daily for 7 days azithromycin 500 mg oral tablet 10/22/2017 11/07/2017 take 1 tablet (500 mg) by oral route once daily for 5 days cefpodoxime 200 mg oral tablet 10/22/2017 11/07/2017 take 1 tablet (200 mg) by oral route every 12 hours with food for 7 days Problem List Description Status Onset SI [...] HC BMI BSA BMI Percentile O2 Sat(%) 11/14/2017 3:38:00 PM 132 mmHg 80 mmHg 82 bpm 16 rpm 98 F 240 lbs 67 in 37.59 kg/m2 2.27 m2 95 % 11/07/2017 8:20:00 AM 142 mmHg 78 mmHg 78 bpm 22 rpm 97.8 F 240 lbs 67 in 37.5889 kg/m 2.2685 m 96 % 10/22/2017 9:26:00 AM 142 mmHg 84 mmHg [...] 12:00 AM Kenalog, Per 10 Mg [facility] [place]2915-2560-67 Reviewed 12/07/2014 12:00 AM OFFICE/OUTPATIENT VISIT EST Reviewed 06/19/2011 12:00 AM DRAIN/INJ JOINT/BURSA W/O US Reviewed 06/19/2011 12:00 AM Kenalog 40 Mg [facility]#8295-2202-48 Reviewed 08/25/2015 12:00 AM OFFICE/OUTPATIENT VISIT EST Reviewed 08/23/2015 12:00 AM Decadron, Per 1 Mg [facility] [place] [address]-21 Reviewed 08/23/2015 12:00 AM Depo-Medrol, Per 80 Mg [facility] [place]#[address]-09 Reviewed 09/07/2015 12:00 AM X-RAY EXAM L-S [...] 10/23/2015 12:00 AM Decadron, Per 1 Mg [facility] [place] [address]-37 Reviewed 10/23/2015 12:00 AM Depo-Medrol, Per 80 Mg [facility] [place]#[address]-52 Reviewed 07/26/2011 12:00 AM X-RAY EXAM OF ABDOMEN Reviewed 11/21/2015 12:00 AM Orthopedics Consultation Reviewed 11/21/2015 12:00 AM Physical Therapy Consultation Reviewed 12/20/2015 12:00 AM EXTREMITY STUDY Reviewed 10/12/2011 12:00 AM EXTREMITY STUDY Reviewed 05/10/2016 12:00 AM CONTRAST X-RAY OF SHOULDER Reviewed 07/09/2016 12:00 AM PNEUMOCOCCAL VACC 13 RIP IM Reviewed 08/08/2016 12:00 AM Decadron, Per 1 Mg [facility] [place] [address]-16 Reviewed 08/08/2016 12:00 AM Depo-Medrol, Per 80 Mg [facility] [place]#[address]-71 Reviewed 01/01/2012 12:00 AM AIRWAY INHALATION TREATMENT Reviewed 01/01/2012 12:00 AM Rocephin 1 gm [facility] [place]#[address]-77 Reviewed 01/16/2012 12:00 AM DRAIN/INJ JOINT/BURSA W/O US Reviewed 01/16/2012 12:00 AM Kenalog per 10Mg [facility]#[address]-74(Srinath) Reviewed 09/26/2016 12:00 AM CHEST X-RAY 2VW [...] AM SYNVISC, Per 1 Mg (2ml) [facility] [place] [address]-29 Reviewed 06/05/2012 12:00 AM DRAIN/INJ JOINT/BURSA W/O US Reviewed 06/05/2012 12:00 AM SYNVISC, Per 1 Mg (2ml) [facility] [place] [address]-40 Reviewed 06/12/2012 12:00 AM DRAIN/INJ JOINT/BURSA W/O US Reviewed 06/12/2012 12:00 AM SYNVISC, Per 1 Mg (2ml) [facility] [place] [address]-96 Reviewed 06/06/2017 12:00 AM Decadron 4mg Injection Reviewed 06/06/2017 12:00 AM Depo-Medrol 40mg Injection Reviewed 06/06/2017 12:[address] ABD & PELV 1/> REGNS Reviewed 07/16/2012 12:00 AM Hepatobiliary ductal system imaging with functional assessment Reviewed 07/16/2012 12:00 AM Decadron 8 mg [facility] [place] [place]#[id number] Reviewed 07/16/2012 12:00 AM Depo-Medrol 80mg [facility] [place]#[id number] Reviewed 07/16/2012 12:00 AM COMPREHEN METABOLIC PANEL Reviewed 07/16/2012 12:00 AM LIPID PANEL Reviewed 07/16/2012 12:00 AM Flu Injection 3 Years And Above [facility] [place] [address]-73 RHC Reviewed 08/19/2012 12:00 AM METABOLIC PANEL TOTAL CA Reviewed 12/21/2009 12:[address] ABDOMEN W/O & W/DYE Reviewed 10/22/2017 12:00 AM Decadron 4mg Injection Reviewed 10/22/2017 12:00 AM Depo-Medrol 40mg Injection Reviewed 10/02/2012 12:00 AM CHEST X-RAY 2VW FRONTAL&LATL Reviewed 10/09/2012 12:00 AM Decadron 8 mg [facility] [place]#[id number] Reviewed 10/09/2012 12:00 AM Depo-Medrol 80mg [facility] [place]#[id number] Reviewed 12/09/2012 12:00 AM CHEST X-RAY 2VW [...] AM SYNVISC-ONE, Per 1 Mg (6ml) [facility] [place] [address]-29 Reviewed 02/26/2013 12:00 AM Physical Therapy Reviewed 02/26/2013 12:[address] NECK SPINE W/O & W/DYE Reviewed 04/07/2013 12:00 AM INJECT TRIGGER POINTS 3/> Reviewed 04/07/2013 12:00 AM Kenalog per 10Mg [facility]#[address]-29(Srinath) Reviewed 07/21/2013 12:00 AM CHEST X-RAY 2VW FRONTAL&LATL Reviewed 07/21/2013 12:00 AM Decadron 8 mg [facility] [place] [address]-72 Reviewed 07/21/2013 12:00 AM Depo-Medrol 80 mg [facility] [place]#[address]-61 Reviewed 07/21/2013 12:00 AM Rocephin 500 mg [facility] [place]#4822-8522-77 Reviewed 09/22/2013 12:00 AM CHEST X-RAY 2VW FRONTAL&LATL Reviewed 10/29/2013 12:00 AM X-RAY EXAM OF ABDOMEN Reviewed 12/08/2013 12:00 AM THER/PROPH/DIAG INJ SC/IM Reviewed 12/08/2013 12:00 AM Decadron, Per 1 Mg [facility] [place] [address]-49 Reviewed 12/08/2013 12:00 AM Depo-Medrol, Per 80 Mg [facility] [place]#4447-7220-92 Reviewed 12/08/2013 12:00 AM CHEST X-RAY 2VW [...] Reviewed 01/05/2014 12:00 AM Decadron 8 mg [facility] [place] [address]-90 Reviewed 01/05/2014 12:00 AM Depo-Medrol 80 mg [facility] [place]#[address]-80 Reviewed 01/05/2014 12:00 AM Rocephin 1 gram [facility] [place]#8425-8090-83 Reviewed 03/15/2010 12:00 AM PROTHROMBIN TIME Reviewed [...] 09/28/2010 12:00 AM Kenalog per 10Mg [facility]#[address]-20(Srinath) Reviewed 05/05/2014 12:00 AM DRAIN/INJ JOINT/BURSA W/O US Reviewed 05/05/2014 12:00 AM SYNVISC-ONE, Per 1 Mg (6ml) [facility] [place] [address]-74 Reviewed 05/06/2014 12:00 AM COMPREHEN METABOLIC PANEL [...] 11/07/2010 12:00 AM Rocephin 500 mg [facility] [place]#[address]-08 Reviewed 07/14/2014 12:00 AM Fluzone MEDICARE Only Reviewed 11/29/2010 12:00 AM INJECT TRIGGER POINTS 3/> Reviewed 11/29/2010 12:00 AM Kenalog per 10Mg [facility]#[address]-96(Srinath) Reviewed 07/14/2014 12:00 AM Decadron injection Reviewed [...] Vis Given Vis Pub CVX Pneumococcal 07/09/2016 Inrnk-Rwlvva-Onibcex-Bran WAL Wilfrednar 13 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 07/09/2016 07/28/2015 133 History [...] May 19 2012 10:10AM Osteoarthritis, knee May 6 2011 9:42AM Osteoarthritis, knee May 13 [...] 2013 9:25AM Chronic Obstructive Pulmonary Disease Feb 6 2013 9:08AM Congestive Heart Failure Feb 2013 9:08AM Hypertension Feb 6 2013 9:08AM Diabetes Mellitus, Type II Feb 6 2013 9:08AM Gastroenteritis, Noninfectious Feb 6 2013 [...] disease Nov 11 2014 2:04PM Lumbar Radiculitis Feb 2014 2:04PM Cervicalgia Nov 11 2014 2:04PM Muscle Spasm Nov 11 2014 2:04PM Pain in joint; Knee,right Nov 11 2014 2:04PM Cervical radiculopathy Nov 11 2014 2:04PM Myofascial pain b 2014 2:47PM [...] 15 2015 3:59PM Pain in joint; Knee,right Sep 23 2015 3:59PM Cervical radiculopathy Jun 15 2015 [...] 3:26PM Acute bronchitis Oct 22 2017 9:28AM 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, right Nov 07 2017 8:22AM Bilateral Hand dermatitis Nov 07 2017 8:22AM Drug induced constipation Nov 14 2017 3:40PM Adverse effect of other opioids, initial encounter Nov 14 2017 3:40PM Hand dermatitis Nov 14 2017 3:40PM Payers Insurance Name Company Name Plan Name Plan Number Policy Number Policy Group Number Start Date Medicare RHC Medicare RHC [id number] N/A [facility] State Plan [id number] N/A [place] [facility] Medicare [place] [employer] Ins [phone] N/A [place] Medical Assistance Program [place] Medical Assistance Prog [id number] N/A Medicare Part B Medicare Of [place] [id number] Friday, 2008 Medicare Part A Medicare Part A [id number] N/A [facility] - C - [facility] RHC Comm [id number] Wednesday, 2015 [employer] - R[place] - [place] State [place] [employer] [place] State [place] [id number] Wednesday, 2015 Medicare Part A Medicare - Lab/Xray [id number] N/A History of Encounters Visit Date Visit Type Provider 11/14/2017 Office visit Melecio Jaja DO 11/07/2017 Office visit Melecio Jaja DO 10/22/2017 Office visit Melecio Jaja DO 08/27/2017 Office visit Melecio Jaja DO 07/22/2017 Office visit Melecio Jaja DO 06/06/2017 Office visit Melecio Jaja DO 04/03/2017 Office visit Melecio Jaja DO 04/01/2017 Hospital Ama Bariros MD 03/28/2017 Office visit Melecio Jaja DO 03/11/2017 Office visit Melecio Jaja DO 03/05/2017 Hospital Ama Barrios MD 02/22/2017 Office visit Melecio Jaja DO 02/05/2017 Office visit Melecio Jaja DO 2017 Hospital Rasta Mckeon MD 2017 Hospital Ama Barrios MD 01/09/2017 Office visit Melecio Jaja DO 01/01/2017 [facility] Seth Devlin DO 12/31/2016 Hospital Rasta [...] DO 01/12/2015 Office visit Katty CRAIG 12/16/2014 [facility] Alfa Platt MD 12/14/2014 Voided Melecio Jaja DO 12/08/2014 Office visit Alfa Platt MD 12/08/2014 Office visit Melecio Wilkinson DO 12/07/2014 Nurse visit Riri Salazar MD 12/02/2014 [facility] Alfa Platt MD 12/02/2014 [facility] Magi Powers MD 11/29/2014 [facility] Magi Powers MD 11/29/2014 Voided Katty CRAIG 11/11/2014 Office visit 11/11/2014 Office visit Katty CRAIG 11/11/2014 Office visit Melecio Wilkinson DO 10/14/2014 Office visit Katty CRAIG 09/14/2014 Office visit Katty CRAIG 09/08/2014 [facility] Ama Barrios MD 09/07/2014 Office visit [...] 01/06/2013 Office visit Gorge Yo MD 12/09/2012 [facility] Ama Barrios MD 12/09/2012 Office visit Stephanie Richardson APRN 11/26/2012 Office visit Gorge Yo MD 10/30/2012 [facility] Gorge Yo MD 10/29/2012 Office visit [...] 05/14/2012 Office visit Gorge Yo MD 05/12/2012 [facility] DO 05/11/2012 [facility] 03/13/2012 Office visit Goreg Yo MD 02/05/2012 Office visit Melecio Wilkinson [...] 03/05/2011 Office visit Melecio Wilkinson DO 02/06/2011 [facility] Gorge Yo MD 01/08/2011 Office visit Melecio Wilkinson DO 12/27/2010 Office visit Gorge Yo MD 11/29/2010 Office visit Gorge Yo MD 11/07/2010 Office visit Melecio Wilkinson DO 09/28/2010 Office visit Gorge Yo MD 09/05/2010 [facility] Gorge Yo MD 08/28/2010 Office visit Gorge Yo MD 08/07/2010 Office visit Janis Navarrete APRN 07/25/2010 Office visit Melecio Wilkinson DO 06/27/2010 Office visit Gorge Yo MD 06/14/2010 Office visit Melecio Wilkinson DO 06/06/2010 Laboratory Alfonso Camacho MD 06/01/2010 Office visit Melecio Wilkinson DO 04/17/2010 Office visit Melecio Wilkinson DO 04/06/2010 Office visit Gorge Yo MD 04/02/2010 [facility] Alfonso Camacho MD 03/31/2010 Laboratory Alfonso Camacho MD 03/31/2010 Laboratory Alfonso Camacho MD 03/31/2010 [facility] Alfonso Camacho MD 03/21/2010 Procedures Gorge [...]
[2018-01-22 11:01] LABS: BILIRUBIN,URINE NEGATIVE (NEGATIVE); CLARITY,URINE CLEAR; COLOR,URINE YELLOW; GLUCOSE, URINE (UA) NEGATIVE (NEGATIVE); KETONES,URINE NEGATIVE (NEGATIVE); LEUKOCYTE ESTERASE ,URINE 1+ (NEGATIVE); NITRITE,URINE NEGATIVE (NEGATIVE); PH,URINE 7 (5-9); PROTEIN,URINE 1+ (NEGATIVE); UROBILINOGEN,URINE 4 MG/DL (NORMAL)
--- OUTSIDE RECORDS SUMMARY | 2018-01-22 11:01 | XMS REPORT ---
Author Author Melecio Wilkinson [facility] Address [address] [place] [phone] Care Team Providers Care Energy Engineer Name Role Phone Melecio Wilkinson PCP Unavailable Melecio Wilkinson PreferredProvider Unavailable Allergies and Adverse Reactions Name Reaction Notes NO KNOWN DRUG ALLERGIES Plan of Treatment Planned Activity Comments Planned Date Planned Time Plan/Goal CMP 04/11/2016 12:00 AM Lipid panel 04/11/2016 12:00 AM Hemoglobin A1c measurement 04/11/2016 12:00 AM VITAMIN B12 04/11/2016 12:00 AM CBC W/ AUTO DIFF (RFLX MAN DIFF IF IND). 04/11/2016 12:00 AM Jet Neb Treatment - Albuterol 01/01/2012 12:00 AM EKG (12-lead electrocardiogram) 12/09/2012 12:[address] abdomen and pelvis with contrast 05/16/2015 12:00 AM Medications Active Name Start [...] oral route once daily in the evening sucralfate 1 gram oral tablet 05/02/2016 TAKE [...] GEN CLARITIN- zolpidem 10 mg oral tablet 08/28/2016 10/27/2016 take 1 tablet (10 mg) by oral route once daily at bedtime for 30 days albuterol sulfate 2.5 mg /3 mL (0.083 %) inhalation solution for nebulization 09/25/2016 USE 1 VIAL IN NEBULIZER FOUR TIMES DAILY oxycodone 20 mg oral tablet 09/28/2016 10/28/2016 take 1 tablet by oral route every 6 hours as needed for 30 days pain oxycodone 30 mg oral tablet,oral only,ext.rel.12 hr 09/28/2016 10/28/2016 take 1 tablet (30 mg) by oral route every 12 hours May fill 08/01/16 allopurinol 100 mg oral tablet take 1 and 1/2 tablet (150 mg) by oral route once daily Name Start Date Expiration Date SIG Comments [...] for 30 days Discontinued by Hospitalist at [place] niacin 500 mg oral tablet 10/10/2016 take [...] route every 12 hours for 30 days Owanka guerita Amitiza 24 mcg oral capsule 05/03/2016 [...] tablet (10 mg) daily for 2 days Problem List Description Status Onset SI [...] HC BMI BSA BMI Percentile O2 Sat(%) 10/10/2016 10:04:00 AM 128 mmHg 70 mmHg [...] 07/11/2015 12:00 AM Kenalog, Per 10 Mg [facility]#1816-6819-39 Reviewed 06/19/2011 12:00 AM DRAIN/INJ JOINT/BURSA W/O US Reviewed 06/19/2011 12:00 AM Kenalog 40 Mg Im-[facility]#0845-4608-12 Reviewed 08/25/2015 12:00 AM OFFICE/OUTPATIENT VISIT EST Reviewed 08/23/2015 12:00 AM Decadron, Per 1 Mg [facility]# [address]-02 Reviewed 08/23/2015 12:00 AM Depo-Medrol, Per 80 Mg [facility]#[address]-07 Reviewed 09/07/2015 12:00 AM X-RAY EXAM L-S [...] 08/08/2016 12:00 AM Decadron, Per 1 Mg [facility]# [address]-01 Reviewed 08/08/2016 12:00 AM Depo-Medrol, Per 80 Mg [facility]#[address]-38 Reviewed 01/01/2012 12:00 AM Rocephin 1 gm [facility]#[address]-54 Reviewed 01/16/2012 12:00 AM DRAIN/INJ JOINT/BURSA W/O US Reviewed 01/16/2012 12:00 AM Kenalog per 10Mg [facility]#[address]-71(Srinath) Reviewed 09/26/2016 12:00 AM CHEST X-RAY 2VW FRONTAL&LATL Reviewed 02/05/2012 12:[address] ABDOMEN W/O & W/DYE Reviewed 02/05/2012 12:[address] PELVIS W/O & W/DYE Reviewed 05/29/2012 12:00 AM DRAIN/INJ JOINT/BURSA W/O US Reviewed 05/29/2012 12:00 AM SYNVISC, Per 1 Mg (2ml) [facility] [address]-83 Reviewed 06/05/2012 12:00 AM DRAIN/INJ JOINT/BURSA W/O US Reviewed 06/05/2012 12:00 AM SYNVISC, Per 1 Mg (2ml) [facility] [address]-67 Reviewed 06/12/2012 12:00 AM DRAIN/INJ JOINT/BURSA W/O US Reviewed 06/12/2012 12:00 AM SYNVISC, Per 1 Mg (2ml) [facility] [address]-55 Reviewed 07/16/2012 12:00 AM Hepatobiliary ductal system imaging with functional assessment Reviewed 07/16/2012 12:00 AM Decadron 8 mg [facility]#[id number] Reviewed 07/16/2012 12:00 AM Depo-Medrol 80mg [facility]#07638212731 Reviewed 07/16/2012 12:00 AM COMPREHEN METABOLIC PANEL Reviewed 07/16/2012 12:00 AM LIPID PANEL Reviewed 07/16/2012 12:00 AM Flu Injection 3 Years And Above [facility]# [address]-21 RHC Reviewed 08/19/2012 12:00 AM METABOLIC PANEL TOTAL CA Reviewed 12/21/2009 12:[address] ABDOMEN W/O & W/DYE Reviewed 10/02/2012 12:00 AM CHEST X-RAY 2VW FRONTAL&LATL Reviewed 10/09/2012 12:00 AM Decadron 8 mg [facility]#89236203220 Reviewed 10/09/2012 12:00 AM Depo-Medrol 80mg [facility]#72884535502 Reviewed 12/09/2012 12:00 AM CHEST X-RAY 2VW [...] 12:00 AM SYNVISC-ONE, Per 1 Mg (6ml) [facility] [address]-21 Reviewed 02/26/2013 12:[address] NECK SPINE W/O & W/DYE Reviewed 04/07/2013 12:00 AM INJECT TRIGGER POINTS 3/> Reviewed 04/07/2013 12:00 AM Kenalog per 10Mg [facility]#[address]-61(Srinath) Reviewed 07/21/2013 12:00 AM CHEST X-RAY 2VW FRONTAL&LATL Reviewed 07/21/2013 12:00 AM Decadron 8 mg [facility]# [address]-31 Reviewed 07/21/2013 12:00 AM Depo-Medrol 80 mg [facility]#[address]-73 Reviewed 07/21/2013 12:00 AM Rocephin 500 mg [facility]#4423-5499-04 Reviewed 09/22/2013 12:00 AM CHEST X-RAY 2VW FRONTAL&LATL Reviewed 10/29/2013 12:00 AM X-RAY EXAM OF ABDOMEN Reviewed 12/08/2013 12:00 AM THER/PROPH/DIAG INJ SC/IM Reviewed 12/08/2013 12:00 AM Decadron, Per 1 Mg [facility]# [address]-60 Reviewed 12/08/2013 12:00 AM Depo-Medrol, Per 80 Mg [facility]#6527-6770-94 Reviewed 12/08/2013 12:00 AM CHEST X-RAY 2VW [...] Reviewed 01/05/2014 12:00 AM Decadron 8 mg [facility]# [address]-80 Reviewed 01/05/2014 12:00 AM Depo-Medrol 80 mg [facility]#[address]-67 Reviewed 01/05/2014 12:00 AM Rocephin 1 gram [facility]#8295-8133-06 Reviewed 03/15/2010 12:00 AM PROTHROMBIN TIME Reviewed [...] 09/28/2010 12:00 AM Kenalog per 10Mg [facility]#[address]-34(Srinath) Reviewed 05/05/2014 12:00 AM DRAIN/INJ JOINT/BURSA W/O US Reviewed 05/05/2014 12:00 AM SYNVISC-ONE, Per 1 Mg (6ml) [facility] [address]-53 Reviewed 05/06/2014 12:00 AM COMPREHEN METABOLIC PANEL [...] Reviewed 11/07/2010 12:00 AM Rocephin 500 mg [facility]#[address]-94 Reviewed 07/14/2014 12:00 AM Fluzone MEDICARE Only Reviewed 11/29/2010 12:00 AM INJECT TRIGGER POINTS 3/> Reviewed 11/29/2010 12:00 AM Kenalog per 10Mg [facility]#[address]-29(Srinath) Reviewed 07/14/2014 12:00 AM Decadron injection Reviewed [...] AA 69 eGFR 57 eGFR AA* >60 History Of Immunizations Name Date Admin Mfg Name Mfg Code Trade Name Lot# Route Inj Vis Given Vis Pub CVX Pneumococcal 07/09/2016 Tcvau-Vorulj-EnjhzvqMilly WAL Prevnar 13 [id number] Intramuscular Right Deltoid 07/09/2016 07/28/2015 133 History [...] 2011 3:21PM Pain in joint; Knee,right George 30 [...] knee Jun 05 2012 9:44AM Osteoarthritis, knee Sep 2011 9:54AM Abdominal [...] 2016 10:07AM Hypercholesterolemia Oct 10 2016 10:07AM Payers Insurance Name Company Name Plan Name Plan Number Policy Number Policy Group Number Start Date Medicare RHC Medicare RHC [id number] N/A [employer] [place] [employer] [place] State Plan [id number] N/A [place] [employer] Medicare [place] [employer] Ins [id number] N/A [place] Medical [place] Program [place] Medical [place] Prog [id number] N/A Medicare Part B Medicare Of [place] [id number] Friday, 2008 Medicare Part A Medicare Part A [id number] N/A [employer] - RHC - Community [facility] RHC Comm [id number] Wednesday, 2015 [employer] [place] [employer] [place] [id number] Wednesday, 2015 Medicare Part A Medicare - Lab/Xray [id number] N/A History of Encounters Visit Date Visit Type Provider 10/10/2016 Office visit Melecio Wilkinson DO 09/26/2016 Office visit Melecio Jaja DO [...] 01/12/2015 Office visit Katty CRAIG 12/16/2014 [facility] Alfa Platt MD 12/14/2014 Voided Melecio Cruzte DO 12/08/2014 Office visit Alfa Platt MD 12/08/2014 Office visit Melecio Cruzte DO 12/07/2014 Nurse visit Riri Salazar MD 12/02/2014 [facility] Alfa Platt MD 12/02/2014 [facility] Powers [facility] Voided Katty CRAIG 11/11/2014 Office visit 11/11/2014 Office visit Katty CRAIG 11/11/2014 Office visit Melecio Cruzte DO 10/14/2014 Office visit Katty CRAIG 09/14/2014 Office visit Katty CRAIG 09/08/2014 [facility] Ama Barrios MD 09/07/2014 Office visit Meleciorocio Cruzte DO 08/16/2014 Nurse visit Katty CRAGI 07/19/2014 Office visit Katty CRAIG 07/14/2014 Office visit Melecio Jaja DO 06/21/2014 Office visit Katty CRAIG 05/20/2014 Office visit Melecio Jaja DO 05/14/2014 Office visit Melecio Jaja DO 05/05/2014 Office visit Katty CRAIG 04/26/2014 Office visit Katty CRAIG 03/24/2014 Office visit Katty RCAIG 02/24/2014 Office visit Katty M. Ronny AUTOMOTIVE STARTER REPAIRER 01/05/2014 Office visit Melecio Wilkinson DO 12/23/2013 Office visit Katty Jefferson AUTOMOTIVE STARTER REPAIRER 12/23/2013 Office visit Melecio Wilkinson DO 12/18/2013 Office visit Janis Navarrete LODGE SALES ASSOCIATE 12/08/2013 Office visit Janis Navarrete LODGE SALES ASSOCIATE 11/25/2013 Office visit Katty Jefferson AUTOMOTIVE STARTER REPAIRER 10/29/2013 Office visit Melecio Wilkinson DO 09/22/2013 Office visit Janis Navarrete LODGE SALES ASSOCIATE 07/28/2013 Office visit Kattyalton Jefferson AUTOMOTIVE STARTER REPAIRER 07/21/2013 Office visit Melecio Wilkinson DO 07/08/2013 Office visit Katty Jefferson AUTOMOTIVE STARTER REPAIRER 05/06/2013 Office visit Melecio Wilkinson DO 04/07/2013 Office visit Gorge Yo MD 02/26/2013 Office visit Melecio Wilkinson DO 01/29/2013 Office visit Gorge Yo MD 01/06/2013 Office visit Gorge Yo MD 12/09/2012 [facility] Ama Barrios MD 12/09/2012 Office visit Stephanie Richardson LODGE SALES ASSOCIATE 11/26/2012 Office visit Gorge Yo MD 10/30/2012 [facility] Gorge Yo MD 10/29/2012 Office [...] 05/14/2012 Office visit Gorge Yo MD 05/12/2012 [facility] DO 05/11/2012 [facility] DO 03/13/2012 Office visit Gorge [...] Office visit Melecio Wilkinson DO 02/06/2011 [facility] Gorge Yo MD 01/08/2011 Office visit Melecio Wilkinson DO 12/27/2010 Office visit Gorge Yo MD 11/29/2010 Office visit Gorge Yo MD 11/07/2010 Office visit Melecio Wilkinson DO 09/28/2010 Office visit Gorge Yo MD 09/05/2010 [facility] Gorge Yo MD 08/28/2010 Office [...] 03/31/2010 Laboratory Alfonso Camacho MD 03/31/2010 [facility] Alfonso Camacho MD 03/21/2010 Procedures [...]
--- OUTSIDE RECORDS SUMMARY | 2018-01-22 11:05 | XMS REPORT ---
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 Name Role Phone Melecio Wilkinson PCP Unavailable [...] route every 12 hours for 7 days MS Contin 60 mg oral tablet extended release 01/20/2016 02/19/2016 take 1 tablet by oral route every 12 hours for 30 days Discontinued Name Start Date Discontinued Date [...] for 30 days Discontinued by Hospitalist at [place] Augmentin 875-125 mg oral tablet 11/07/2010 03/05/2011 [...] 12 hours for 30 days $500 co-pay Problem List Description Status Onset SI joint [...] 12:00 AM Kenalog, Per 10 Mg [facility]#3787-2468-92 Reviewed 06/19/2011 12:00 AM DRAIN/INJ JOINT/BURSA W/O US Reviewed 06/19/2011 12:00 AM Kenalog 40 Mg [facility]#5944-0552-09 Reviewed 08/25/2015 12:00 AM OFFICE/OUTPATIENT VISIT EST Reviewed 08/23/2015 12:00 AM Decadron, Per 1 Mg [facility]# [address]-04 Reviewed 08/23/2015 12:00 AM Depo-Medrol, Per 80 Mg [facility]#[address]-70 Reviewed 09/07/2015 12:00 AM X-RAY EXAM L-S [...] 01/01/2012 12:00 AM Rocephin 1 gm [facility]#[address]-24 Reviewed 01/16/2012 12:00 AM DRAIN/INJ JOINT/BURSA W/O US Reviewed 01/16/2012 12:00 AM Kenalog per 10Mg [facility]#[address]-24(Srinath) Reviewed 02/05/2012 12:[address] ABDOMEN W/O & W/DYE Reviewed 02/05/2012 12:[address] PELVIS W/O & W/DYE Reviewed 05/29/2012 12:00 AM DRAIN/INJ JOINT/BURSA W/O US Reviewed 05/29/2012 12:00 AM SYNVISC, Per 1 Mg (2ml) [facility] [address]-92 Reviewed 06/05/2012 12:00 AM DRAIN/INJ JOINT/BURSA W/O US Reviewed 06/05/2012 12:00 AM SYNVISC, Per 1 Mg (2ml) [facility] [address]-39 Reviewed 06/12/2012 12:00 AM DRAIN/INJ JOINT/BURSA W/O US Reviewed 06/12/2012 12:00 AM SYNVISC, Per 1 Mg (2ml) [facility] [address]-89 Reviewed 07/16/2012 12:00 AM Hepatobiliary ductal system imaging with functional assessment Reviewed 07/16/2012 12:00 AM Decadron 8 mg [facility]#81078941188 Reviewed 07/16/2012 12:00 AM Depo-Medrol 80mg [facility]#89273893947 Reviewed 07/16/2012 12:00 AM COMPREHEN METABOLIC PANEL Reviewed 07/16/2012 12:00 AM LIPID PANEL Reviewed 07/16/2012 12:00 AM Flu Injection 3 Years And Above [facility]# [address]-32 RHC Reviewed 08/19/2012 12:00 AM METABOLIC PANEL TOTAL CA Reviewed 12/21/2009 12:[address] ABDOMEN W/O & W/DYE Reviewed 10/02/2012 12:00 AM CHEST X-RAY 2VW FRONTAL&LATL Reviewed 10/09/2012 12:00 AM Decadron 8 mg [facility]#14157609018 Reviewed 10/09/2012 12:00 AM Depo-Medrol 80mg [facility]#16706075988 Reviewed 12/09/2012 12:00 AM CHEST X-RAY 2VW [...] AM SYNVISC-ONE, Per 1 Mg (6ml) [facility] [address]-47 Reviewed 02/26/2013 12:[address] NECK SPINE W/O & W/DYE Reviewed 04/07/2013 12:00 AM INJECT TRIGGER POINTS 3/> Reviewed 04/07/2013 12:00 AM Kenalog per 10Mg [facility]#[address]-12(Srinath) Reviewed 07/21/2013 12:00 AM CHEST X-RAY 2VW FRONTAL&LATL Reviewed 07/21/2013 12:00 AM Decadron 8 mg [facility]# [address]-38 Reviewed 07/21/2013 12:00 AM Depo-Medrol 80 mg [facility]#[address]-20 Reviewed 07/21/2013 12:00 AM Rocephin 500 mg [facility]#4683-5481-26 Reviewed 09/22/2013 12:00 AM CHEST X-RAY 2VW FRONTAL&LATL Returned 10/29/2013 12:00 AM X-RAY EXAM OF ABDOMEN Reviewed 12/08/2013 12:00 AM THER/PROPH/DIAG INJ SC/IM Reviewed 12/08/2013 12:00 AM Decadron, Per 1 Mg [facility]# [address]-70 Reviewed 12/08/2013 12:00 AM Depo-Medrol, Per 80 Mg [facility]#0967-3449-43 Reviewed 12/08/2013 12:00 AM CHEST X-RAY 2VW [...] 01/05/2014 12:00 AM Decadron 8 mg [facility]# [address]-64 Reviewed 01/05/2014 12:00 AM Depo-Medrol 80 mg [facility]#[address]-11 Reviewed 01/05/2014 12:00 AM Rocephin 1 gram [facility]#3023-7848-27 Reviewed 03/15/2010 12:00 AM PROTHROMBIN TIME Reviewed [...] Reviewed 09/28/2010 12:00 AM Kenalog per 10Mg [facility]#[address]-29(Srinath) Reviewed 05/05/2014 12:00 AM DRAIN/INJ JOINT/BURSA W/O US Reviewed 05/05/2014 12:00 AM SYNVISC-ONE, Per 1 Mg (6ml) [facility] [address]-06 Reviewed 05/06/2014 12:00 AM COMPREHEN METABOLIC PANEL [...] 11/07/2010 12:00 AM Rocephin 500 mg [facility]#[address]-84 Reviewed 07/14/2014 12:00 AM Fluzone MEDICARE Only Reviewed 11/29/2010 12:00 AM INJECT TRIGGER POINTS 3/> Reviewed 11/29/2010 12:00 AM Kenalog per 10Mg [facility]#[address]-55(Srinath) Reviewed 07/14/2014 12:00 AM Decadron injection Reviewed [...] Sep 27 2010 3:56PM Osteoarthrosis, lower leg Sep 2010 4:56PM Diarrhea Jul 26 2011 10:00AM Abdominal [...] 6 2013 9:08AM Congestive Heart Failure Feb 6 [...] Start Date Medicare Part A Medicare RHC [id number] N/A [employer] - RHC [place] State [place] [employer] [place] State [place] [id number] Wednesday, 2015 Medicare Part A Medicare - Lab/Xray [id number] N/A [place] [employer] Medicare [place] [employer] Ins [id number] N/A [place] Medical Assistance [facility] Medical Assistance Prog [id number] N/A Medicare Part B Medicare Of [place] [id number] Friday, February 22, 2008 Medicare Part A Medicare Part A [id number] N/A [facility] - RHC - [facility] Plan [facility] Comm [id number] Wednesday, September 23, 2015 History of Encounters [...] [facility] Voided Katty CRAIG 11/11/2014 [...] visit Katty CRAIG 03/24/2014 Office visit Katty M. Ronny RELAY MOTORMAN 02/24/2014 Office visit Katty M. Ronny RELAY MOTORMAN 01/05/2014 Office visit Melecio Wilkinson DO 12/23/2013 Office visit Katty Jefferson RELAY MOTORMAN 12/23/2013 Office visit Melecio Wilkinson DO 12/18/2013 Office visit Janis Navarrete DISC PAD GRINDING MACHINE FEEDER 12/08/2013 Office visit Janis Navarrete DISC PAD GRINDING MACHINE FEEDER 11/25/2013 Office visit Kattyalton Jefferson RELAY MOTORMAN 10/29/2013 Office visit Melecio Wilkinson DO 09/22/2013 Office visit Janis Navarrete DISC PAD GRINDING MACHINE FEEDER 07/28/2013 Office visit Katty MisaelNeville Jefferson RELAY MOTORMAN 07/21/2013 Office visit Melecio Wilkinson DO 07/08/2013 Office visit Katty DURÁNP 05/06/2013 Office visit Melecio Wilkinson DO 04/07/2013 Office visit Gorge Yo MD 02/26/2013 Office visit Melecio Wilkinson DO 01/29/2013 Office visit Gorge Yo MD 01/06/2013 Office visit Gorge Yo MD 12/09/2012 [facility] Ama Barrios MD 12/09/2012 Office visit Stephanie Mitzi Richardson DISC PAD GRINDING MACHINE FEEDER 11/26/2012 Office visit Gorge Yo MD 10/30/2012 [...] 05/14/2012 Office visit Gorge Yo MD 05/12/2012 [facility] DO 05/11/2012 [facility] DO 03/13/2012 Office visit Gorge [...] 09/28/2010 Office visit Gorge Yo MD 09/05/2010 Hospital Gorge Yo MD 08/28/2010 Office visit [...]
--- OUTSIDE RECORDS SUMMARY | 2018-01-22 11:09 | XMS REPORT ---
Author Author Melecio Wilkinson [facility] Address [address] [place] [phone] Care Team Providers Care Fabrication Department Supervisor Name Role Phone Melecio Wilkinson PCP Unavailable Melecio Wilkisnon PreferredProvider Unavailable Allergies and Adverse Reactions Name [...] route every 8 hours for 30 days Klor-Con 10 10 mEq oral tablet extended release 01/14/2017 01/24/2017 take 1 tablet (10 meq) by oral route once daily with food for 10 days bumetanide 2 mg oral tablet take 1 tablet (2 mg) by oral route every other day for 10 days oxycodone 20 mg oral tablet 01/17/2017 02/16/2017 take 1 tablet by oral route q6h prn for 30 days May fill 01/18/17 Name Start Date Expiration Date SIG Comments [...] route every 12 hours for 7 days furosemide 40 mg oral tablet 01/10/2017 01/15/2017 take 1 tablet (40 mg) by oral route once daily for 5 days Discontinued Name Start Date Discontinued Date [...] for 30 days Discontinued by Hospitalist at [place] niacin 500 mg oral tablet 10/10/2016 take [...] route every 12 hours for 30 days [place] guerita Amitiza 24 mcg oral capsule 05/03/2016 [...] 10 Mg [facility]#6683-1748-89 Reviewed 12/07/2014 12:00 AM OFFICE/OUTPATIENT VISIT EST Reviewed 06/19/2011 12:00 AM DRAIN/INJ JOINT/BURSA W/O US Reviewed 06/19/2011 12:00 AM Kenalog 40 Mg [facility] [place]#0144-2585-13 Reviewed 08/25/2015 12:00 AM OFFICE/OUTPATIENT VISIT EST Reviewed 08/23/2015 12:00 AM Decadron, Per 1 Mg [facility]# [address]-15 Reviewed 08/23/2015 12:00 AM Depo-Medrol, Per 80 Mg [facility]#[address]-85 Reviewed 09/07/2015 12:00 AM X-RAY EXAM L-S [...] 10/23/2015 12:00 AM Decadron, Per 1 Mg [facility]# [address]-56 Reviewed 10/23/2015 12:00 AM Depo-Medrol, Per 80 Mg [facility]#[address]-88 Reviewed 07/26/2011 12:00 AM X-RAY EXAM OF ABDOMEN Reviewed 11/21/2015 12:00 AM Orthopedics Consultation Reviewed 11/21/2015 12:00 AM Physical Therapy Consultation Reviewed 12/20/2015 12:00 AM EXTREMITY STUDY Reviewed 10/12/2011 12:00 AM EXTREMITY STUDY Reviewed 05/10/2016 12:00 AM CONTRAST X-RAY OF SHOULDER Reviewed 07/09/2016 12:00 AM PNEUMOCOCCAL VACC 13 RIP IM Reviewed 08/08/2016 12:00 AM Decadron, Per 1 Mg [facility]# [address]-54 Reviewed 08/08/2016 12:00 AM Depo-Medrol, Per 80 Mg [facility]#[address]-68 Reviewed 01/01/2012 12:00 AM AIRWAY INHALATION TREATMENT Reviewed 01/01/2012 12:00 AM Rocephin 1 gm [facility]#[address]-92 Reviewed 01/16/2012 12:00 AM DRAIN/INJ JOINT/BURSA W/O US Reviewed 01/16/2012 12:00 AM Kenalog per 10Mg [facility] [place]#[address]-15(Srinath) Reviewed 09/26/2016 12:00 AM CHEST X-RAY 2VW [...] (2ml) [facility] [address]-73 Reviewed 06/05/2012 12:00 AM DRAIN/INJ JOINT/BURSA W/O US Reviewed 06/05/2012 12:00 AM SYNVISC, Per 1 Mg (2ml) [facility] [address]-36 Reviewed 06/12/2012 12:00 AM DRAIN/INJ JOINT/BURSA W/O US Reviewed 06/12/2012 12:00 AM SYNVISC, Per 1 Mg (2ml) [facility] [address]-71 Reviewed 07/16/2012 12:00 AM Hepatobiliary ductal system imaging with functional assessment Reviewed 07/16/2012 12:00 AM Decadron 8 mg [facility]#[id number] Reviewed 07/16/2012 12:00 AM Depo-Medrol 80mg [facility]#33853381888 Reviewed 07/16/2012 12:00 AM COMPREHEN METABOLIC PANEL Reviewed 07/16/2012 12:00 AM LIPID PANEL Reviewed 07/16/2012 12:00 AM Flu Injection 3 Years And Above [facility]# [address]-30 RHC Reviewed 08/19/2012 12:00 AM METABOLIC PANEL TOTAL CA Reviewed 12/21/2009 12:[address] ABDOMEN W/O & W/DYE Reviewed 10/02/2012 12:00 AM CHEST X-RAY 2VW FRONTAL&LATL Reviewed 10/09/2012 12:00 AM Decadron 8 mg [facility]#[id number] Reviewed 10/09/2012 12:00 AM Depo-Medrol 80mg [facility]#06882392283 Reviewed 12/09/2012 12:00 AM CHEST X-RAY 2VW [...] (6ml) [facility] [address]-97 Reviewed 02/26/2013 12:00 AM Physical Therapy Reviewed 02/26/2013 12:[address] NECK SPINE W/O & W/DYE Reviewed 04/07/2013 12:00 AM INJECT TRIGGER POINTS 3/> Reviewed 04/07/2013 12:00 AM Kenalog per 10Mg [facility] [place]#[address]-07(Srinath) Reviewed 07/21/2013 12:00 AM CHEST X-RAY 2VW FRONTAL&LATL Reviewed 07/21/2013 12:00 AM Decadron 8 mg [facility]# [address]-13 Reviewed 07/21/2013 12:00 AM Depo-Medrol 80 mg [facility]#[address]-03 Reviewed 07/21/2013 12:00 AM Rocephin 500 mg [facility]#2214-7876-27 Reviewed 09/22/2013 12:00 AM CHEST X-RAY 2VW FRONTAL&LATL Reviewed 10/29/2013 12:00 AM X-RAY EXAM OF ABDOMEN Reviewed 12/08/2013 12:00 AM THER/PROPH/DIAG INJ SC/IM Reviewed 12/08/2013 12:00 AM Decadron, Per 1 Mg [facility]# [address]-91 Reviewed 12/08/2013 12:00 AM Depo-Medrol, Per 80 Mg [facility]#8928-3389-04 Reviewed 12/08/2013 12:00 AM CHEST X-RAY 2VW [...] Reviewed 01/05/2014 12:00 AM Decadron 8 mg [facility]# [address]-65 Reviewed 01/05/2014 12:00 AM Depo-Medrol 80 mg [facility]#[address]-71 Reviewed 01/05/2014 12:00 AM Rocephin 1 gram [facility]#5851-4525-31 Reviewed 03/15/2010 12:00 AM PROTHROMBIN TIME Reviewed [...] Reviewed 09/28/2010 12:00 AM Kenalog per 10Mg [facility] [place]#[address]-17(Srinath) Reviewed 05/05/2014 12:00 AM DRAIN/INJ JOINT/BURSA W/O US Reviewed 05/05/2014 12:00 AM SYNVISC-ONE, Per 1 Mg (6ml) [facility] [address]-04 Reviewed 05/06/2014 12:00 AM COMPREHEN METABOLIC PANEL [...] 500 mg [facility]#[address]-78 Reviewed 07/14/2014 12:00 AM Fluzone MEDICARE Only Reviewed 11/29/2010 12:00 AM INJECT TRIGGER POINTS 3/> Reviewed 11/29/2010 12:00 AM Kenalog per 10Mg [facility] [place]#[address]-89(Srinath) Reviewed 07/14/2014 12:00 AM Decadron injection Reviewed [...] CVX Pneumococcal 07/09/2016 Emily DOHERTY Prevnar 13 [id number] Intramuscular Right Deltoid 07/09/2016 07/28/2015 133 History [...] Jun 05 2012 9:44AM Osteoarthritis, knee Sep 20 2012 9:54AM Abdominal Pain, RLQ Jul 16 [...] infection Nov 11 2014 8:23AM Lumbar spondylosis Fe2014 2:04PM Lumbar degenerative disc disease Nov 11 2014 2:04PM Lumbar Radiculitis Nov 11 2014 2:04PM Cervicalgia b 2014 2:04PM Muscle Spasm b 2014 2:04PM Pain in joint; Knee,right b 2014 2:04PM Cervical radiculopathy Feb 2014 2:04PM Myofascial pain Feb 2014 2:47PM [...] of right lung Jan 09 2017 8:39AM Payers Insurance Name Company Name Plan Name Plan Number Policy Number Policy Group Number Start Date Medicare RHC Medicare RHC [id number] N/[place] [employer] [place] [employer] [place] [id number] N/A [place] [employer] Medicare [place] [employer] Ins [phone] N/A [place] Medical Assistance [facility] Medical Assistance Prog [id number] N/A Medicare Part B Medicare Of [place] [id number] Friday, 2008 Medicare Part A Medicare Part A [id number] N/A [facility] - C - Community Plan of [place] [facility] RHC Comm [id number] Wednesday, 2015 [employer] - [place] [employer] [place] [id number] Wednesday, 2015 Medicare Part A Medicare - Lab/Xray [id number] N/A History of Encounters Visit Date Visit Type Provider 01/09/2017 Office visit Melecio Jaja DO 01/01/2017 Hospital Seth Devlin DO 12/31/2016 Hospital Rasta Mckeon MD 12/21/2016 Office visit Melecio Jaja DO [...] visit Melecio Jaja DO 05/03/2016 Office visit Meelcio Jaja DO 04/11/2016 Office visit Melecio Jaja [...] 01/12/2015 Office visit Katty CRAIG 12/16/2014 [facility] Alfa Platt MD 12/14/2014 Voided Melecio Willhite DO 12/08/2014 Office visit Alfa Platt MD 12/08/2014 Office visit Melecio Jaja DO 12/07/2014 Nurse visit Riri Salazar MD 12/02/2014 [facility] Alfa Platt MD 12/02/2014 [facility] Magi Powers MD 11/29/2014 [facility] Magi Powers MD 11/29/2014 Voided Katty CRAIG 11/11/2014 Office visit 11/11/2014 Office visit Katty CRAIG 11/11/2014 Office visit Melecio Jaja DO 10/14/2014 Office visit Katty CRAIG 09/14/2014 Office visit Katty CRAIG 09/08/2014 [facility] Ama Barrios MD 09/07/2014 Office visit Melecio Jaja DO 08/16/2014 Nurse visit Katty CRAIG 07/19/2014 Office visit Katty CRAIG 07/14/2014 Office visit Melecio Jaja DO 06/21/2014 Office visit Katty Jefferson GREASER OPERATOR 05/20/2014 Office visit Melecio Wilkinson DO 05/14/2014 Office visit Melecio Jaja DO 05/05/2014 Office visit Katty Jefferson GREASER OPERATOR 04/26/2014 Office visit Katty Jefferson GREASER OPERATOR 03/24/2014 Office visit Katty Jefferson GREASER OPERATOR 02/24/2014 Office visit Katty Jefferson GREASER OPERATOR 01/05/2014 Office visit Melecio Jaja DO 12/23/2013 Office visit Katty Jefferson GREASER OPERATOR 12/23/2013 Office visit Melecio Wilkinson DO 12/18/2013 Office visit Janis Landon SENIOR SOFTWARE DEVELOPMENT MANAGER 12/08/2013 Office visit Janis Navarrete SENIOR SOFTWARE DEVELOPMENT MANAGER 11/25/2013 Office visit Katty DURÁNP 10/29/2013 Office visit Melecio Wilkinson DO 09/22/2013 Office visit Janis Landon SENIOR SOFTWARE DEVELOPMENT MANAGER 07/28/2013 Office visit Katty DURÁNP 07/21/2013 Office visit Melecio Wilkinson DO 07/08/2013 Office visit Katty CRAIG 05/06/2013 Office visit Melecio Wilkinson DO 04/07/2013 Office visit Gorge Yo MD 02/26/2013 Office visit Melecio Wilkinson DO 01/29/2013 Office visit Gorge Yo MD 01/06/2013 Office visit Gorge Yo MD 12/09/2012 [facility] Ama Barrios MD 12/09/2012 Office visit Stephanie Richardson APRN 11/26/2012 Office visit Gorge Yo MD 10/30/2012 [facility] Gorge Yo MD 10/29/2012 Office visit [...] 05/14/2012 Office visit Gorge Yo MD 05/12/2012 [facility] DO 05/11/2012 [facility] DO 03/13/2012 Office visit Gorge Yo [...] 03/05/2011 Office visit Melecio Wilkinson DO 02/06/2011 [facility] Gorge Yo MD 01/08/2011 Office visit Melecio Wilkinson DO 12/27/2010 Office visit Gorge Yo MD 11/29/2010 Office visit Gorge Yo MD 11/07/2010 Office visit Melecio Wilkinson DO 09/28/2010 Office visit Gorge Yo MD 09/05/2010 [facility] Gorge Yo MD 08/28/2010 Office visit Gorge Yo MD 08/07/2010 Office visit Janis Navarrete SENIOR SOFTWARE DEVELOPMENT MANAGER 07/25/2010 Office visit Melecio Wilkinson DO 06/27/2010 Office visit Gorge Yo MD 06/14/2010 Office visit Melecio Wilkinson DO 06/06/2010 Laboratory Alfonso Camacho MD 06/01/2010 Office visit Melecio Wilkinson DO 04/17/2010 Office visit Melecio Wilkinson DO 04/06/2010 Office visit Gorge Yo MD 04/02/2010 [facility] Alfonso Camacho MD 03/31/2010 Laboratory Alfonso Camacho MD 03/31/2010 Laboratory Alfonso Camacho MD 03/31/2010 [facility] Alfonso Camacho MD 03/21/2010 Procedures Gorge Yo MD 03/16/2010 Office visit Gorge Yo MD 03/15/2010 Office visit Melecio Wilkinson DO 02/23/2010 Office visit Gorge Yo MD 02/08/2010 Office visit Gorge Yo MD 12/28/2009 Office visit Gorge Yo MD 12/21/2009 Office visit Melecio Wilkinson DO 12/14/2009 Office visit Gorge Yo MD 12/06/2009 Office visit Latonia Ibarra MD 11/03/2009 Office visit Melecoi Wilkinson DO 10/01/2009 Laboratory Gill Maurice MD 09/08/2009 Office visit Gorge Yo MD 08/25/2009 Procedures Gorge Yo MD 08/23/2009 Office visit Gorge Yo MD 07/06/2009 Laboratory Vamshi Aguero MD 06/27/2009 Office visit Gorge Yo MD 06/17/2009 Office visit Vamshi Aguero MD 05/24/2009 Office visit Gorge Yo MD
[2018-01-22] MEDS ORDERED: ALLO100T PO (11:12)
[2018-01-22] MEDS ORDERED: BUDE10.2 IH (11:13)
[2018-01-22] MEDS ORDERED: CARV25TA PO (11:13)
[2018-01-22] MEDS ORDERED: CLON0.2T PO (11:14)
--- OUTSIDE RECORDS SUMMARY | 2018-01-22 11:14 | XMS REPORT ---
Author Author Melecio Wilkinson [facility] Address [address] [place] [id number] Care Team Providers Care Fractionation Supervisor Name Role Phone Melecio Wilkinson PCP [...] days clonidine HCl 0.2 mg oral tablet 07/12/2016 TAKE ONE TABLET BY MOUTH THREE TIMES DAILY NEEDED oxycodone 30 mg oral tablet,oral only,ext.rel.12 hr 07/30/2016 08/29/2016 take 1 tablet (30 mg) by oral route every 12 hours May fill 08/01/16 midodrine 5 mg oral tablet 08/01/2016 TAKE 1 TABLET BY MOUTH TWICE DAILY sucralfate 1 gram oral tablet 08/01/2016 TAKE 1 TABLET BY MOUTH 30 MINUITES PRIOR TO MEALS AND AT BEDTIME fluticasone 50 mcg/actuation nasal spray,suspension 08/01/2016 inhale 1 spray (50 mcg) in each nostril by intranasal route 2 times per day omeprazole 40 mg oral capsule,delayed release(DR/EC) 08/01/2016 TAKE 1 CAPSULE BY MOUTH TWICE DAILY methocarbamol 750 mg oral tablet 08/01/2016 TAKE 1 TABLET BY MOUTH EVERY SIX HOURS NEEDED digoxin 125 mcg oral tablet 08/01/2016 TAKE 1 TABLET BY MOUTH EVERY DAY oxycodone 20 mg oral tablet 08/02/2016 09/01/2016 take 1 tablet by oral route every [...] TAKE 1 TABLET BY MOUTH ONCE DAILY isosorbide mononitrate 30 mg oral tablet extended [...] every 12 hours for 7 days furosemide 20 mg oral tablet 07/10/2016 07/13/2016 take 1 tablet (20 mg) by oral route once daily for 3 days Discontinued Name Start Date Discontinued Date [...] for 30 days Discontinued by Hospitalist at [facility] Augmentin 875-125 mg oral tablet 11/07/2010 03/05/2011 [...] by oral route 3 times a day carvedilol 12.5 mg oral tablet 08/24/2013 08/08/2016 TAKE 1 TABLET BY MOUTH TWO TIMES A DAY *GEN COREG* gen. on list hydrocodone-acetaminophen 10-500 mg oral tablet 08/25/2013 11/23/2013 [...] route every 12 hours for 30 days [place] stoned Problem List Description Status Onset SI [...] HC BMI BSA BMI Percentile O2 Sat(%) 08/08/2016 10:15:00 AM 136 mmHg 74 mmHg [...] 07/11/2015 12:00 AM Kenalog, Per 10 Mg [facility]#8853-6109-66 Reviewed 06/19/2011 12:00 AM DRAIN/INJ JOINT/BURSA W/O US Reviewed 06/19/2011 12:00 AM Kenalog 40 Mg [facility]#4643-2762-32 Reviewed 08/25/2015 12:00 AM OFFICE/OUTPATIENT VISIT EST Reviewed 08/23/2015 12:00 AM Decadron, Per 1 Mg [facility]# [address]-62 Reviewed 08/23/2015 12:00 AM Depo-Medrol, Per 80 Mg [facility]#[address]-91 Reviewed 09/07/2015 12:00 AM X-RAY EXAM L-S [...] 08/08/2016 12:00 AM Decadron, Per 1 Mg [facility]# [address]-16 Reviewed 08/08/2016 12:00 AM Depo-Medrol, Per 80 Mg [facility]#[address]-05 Reviewed 01/01/2012 12:00 AM Rocephin 1 gm [facility]#[address]-89 Reviewed 01/16/2012 12:00 AM DRAIN/INJ JOINT/BURSA W/O US Reviewed 01/16/2012 12:00 AM Kenalog per 10Mg [facility]#[address]-98(Srinath) Reviewed 02/05/2012 12:[address] ABDOMEN W/O & W/DYE Reviewed 02/05/2012 12:[address] PELVIS W/O & W/DYE Reviewed 05/29/2012 12:00 AM DRAIN/INJ JOINT/BURSA W/O US Reviewed 05/29/2012 12:00 AM SYNVISC, Per 1 Mg (2ml) [facility] [address]-02 Reviewed 06/05/2012 12:00 AM DRAIN/INJ JOINT/BURSA W/O US Reviewed 06/05/2012 12:00 AM SYNVISC, Per 1 Mg (2ml) [facility] [address]-42 Reviewed 06/12/2012 12:00 AM DRAIN/INJ JOINT/BURSA W/O US Reviewed 06/12/2012 12:00 AM SYNVISC, Per 1 Mg (2ml) [facility] [address]-34 Reviewed 07/16/2012 12:00 AM Hepatobiliary ductal system imaging with functional assessment Reviewed 07/16/2012 12:00 AM Decadron 8 mg [facility]#11288741453 Reviewed 07/16/2012 12:00 AM Depo-Medrol 80mg [facility]#03228523955 Reviewed 07/16/2012 12:00 AM COMPREHEN METABOLIC PANEL Reviewed 07/16/2012 12:00 AM LIPID PANEL Reviewed 07/16/2012 12:00 AM Flu Injection 3 Years And Above [facility]# [address]-54 RHC Reviewed 08/19/2012 12:00 AM METABOLIC PANEL TOTAL CA Reviewed 12/21/2009 12:[address] ABDOMEN W/O & W/DYE Reviewed 10/02/2012 12:00 AM CHEST X-RAY 2VW FRONTAL&LATL Reviewed 10/09/2012 12:00 AM Decadron 8 mg [facility]#20932775366 Reviewed 10/09/2012 12:00 AM Depo-Medrol 80mg [facility]#75640964591 Reviewed 12/09/2012 12:00 AM CHEST X-RAY 2VW [...] 12:00 AM SYNVISC-ONE, Per 1 Mg (6ml) [facility] [address]-53 Reviewed 02/26/2013 12:[address] NECK SPINE W/O & W/DYE Reviewed 04/07/2013 12:00 AM INJECT TRIGGER POINTS 3/> Reviewed 04/07/2013 12:00 AM Kenalog per 10Mg [facility]#[address]-63(Srinath) Reviewed 07/21/2013 12:00 AM CHEST X-RAY 2VW FRONTAL&LATL Reviewed 07/21/2013 12:00 AM Decadron 8 mg [facility]# [address]-14 Reviewed 07/21/2013 12:00 AM Depo-Medrol 80 mg [facility]#[address]-41 Reviewed 07/21/2013 12:00 AM Rocephin 500 mg [facility]#3460-7551-06 Reviewed 09/22/2013 12:00 AM CHEST X-RAY 2VW FRONTAL&LATL Reviewed 10/29/2013 12:00 AM X-RAY EXAM OF ABDOMEN Reviewed 12/08/2013 12:00 AM THER/PROPH/DIAG INJ SC/IM Reviewed 12/08/2013 12:00 AM Decadron, Per 1 Mg [facility]# [address]-03 Reviewed 12/08/2013 12:00 AM Depo-Medrol, Per 80 Mg [facility]#0627-3604-67 Reviewed 12/08/2013 12:00 AM CHEST X-RAY 2VW [...] Reviewed 01/05/2014 12:00 AM Decadron 8 mg [facility]# [address]-42 Reviewed 01/05/2014 12:00 AM Depo-Medrol 80 mg [facility]#[address]-88 Reviewed 01/05/2014 12:00 AM Rocephin 1 gram [facility]#7189-1031-64 Reviewed 03/15/2010 12:00 AM PROTHROMBIN TIME Reviewed [...] 09/28/2010 12:00 AM Kenalog per 10Mg [facility]#[address]-41(Srinath) Reviewed 05/05/2014 12:00 AM DRAIN/INJ JOINT/BURSA W/O US Reviewed 05/05/2014 12:00 AM SYNVISC-ONE, Per 1 Mg (6ml) [facility] [address]-20 Reviewed 05/06/2014 12:00 AM COMPREHEN METABOLIC PANEL [...] Reviewed 11/07/2010 12:00 AM Rocephin 500 mg [facility]#[address]-35 Reviewed 07/14/2014 12:00 AM Fluzone MEDICARE Only Reviewed 11/29/2010 12:00 AM INJECT TRIGGER POINTS 3/> Reviewed 11/29/2010 12:00 AM Kenalog per 10Mg [facility]#[address]-63(Srinath) Reviewed 07/14/2014 12:00 AM Decadron injection Reviewed [...] Vis Given Vis Pub CVX Pneumococcal 07/09/2016 Kgtep-Qfabwi-Qpvzsvv-Bran [facility] Prevnar 13 [id number] Intramuscular Right Deltoid 07/09/2016 07/28/2015 133 History [...] Bronchitis, Acute b 2010 10:56AM Sinusitis, Acute b 2010 10:56AM Hypertension b 2010 10:56AM Congestive Heart Failure Nov 07 [...] Sep 13 2011 9:44AM Osteoarthritis, knee Sep 20 2011 9:54AM Abdominal Pain, RLQ Jul 16 [...] 9:55AM Allergic bronchitis Aug 08 2016 10:17AM Payers Insurance Name Company Name Plan Name Plan Number Policy Number Policy Group Number Start Date Medicare Part A Medicare [facility] [id number] N/A [employer] [place] [facility] [place] [id number] Wednesday, 2015 Medicare Part A Medicare - Lab/Xray [id number] N/[place] [employer] [place] [employer] [place] [id number] N/A [employer] [place] [employer] Medicare [place] [employer] [id number] N/A [place] [facility] [place] Prog [id number] N/A Medicare Part B Medicare [facility] [id number] Friday, February 22, 2008 Medicare Part A Medicare Part A [id number] N/A [facility] - RHC - Community Plan [facility] RHC Comm [id number] Wednesday, September 23, 2015 History of Encounters Visit Date Visit Type Provider 08/08/2016 Office visit Melecio Cruzte DO 07/09/2016 Office visit Melecio Wilkinson DO 07/06/2016 Hospital David Paul MD 07/05/2016 Surgery [...] Melecio Jaja DO 05/09/2015 Office visit Melecio Wilkinson DO 04/26/2015 Office visit Katty CRAIG 04/08/2015 [...] visit Melecio Jaja DO 01/12/2015 Office visit Katyt CRAIG 12/16/2014 [facility] Alfa Platt MD 12/14/2014 Voided Melecio Cruzte DO 12/08/2014 Office visit Alfa Platt MD 12/08/2014 Office visit Melecio Jaja DO 12/07/2014 Nurse visit Riri Salazar MD 12/02/2014 [facility]att [facility] Gio STRONG 11/29/2014 Voided Katty CRAIG 11/11/2014 [...] Jaja DO 12/23/2013 Office visit Katty Jefferson ATTENDANT LODGING FACILITIES 12/23/2013 Office visit Melecio Wilkinson DO 12/18/2013 Office visit Janis Navarrete LOGISTICS PLANNING MANAGER 12/08/2013 Office visit Janis Navarrete LOGISTICS PLANNING MANAGER 11/25/2013 Office visit Katty Jefferson ATTENDANT LODGING FACILITIES 10/29/2013 Office visit Melecio Wilkinson DO 09/22/2013 Office visit Janis Navarrete LOGISTICS PLANNING MANAGER 07/28/2013 Office visit Katty MisaelN[place] Jefferson ATTENDANT LODGING FACILITIES 07/21/2013 Office visit Melecio Wilkinson DO 07/08/2013 Office visit Katty Jefferson ATTENDANT LODGING FACILITIES 05/06/2013 Office visit Melecio Wilkinson DO 04/07/2013 Office visit Groge Yo MD 02/26/2013 Office visit Melecio Wilkinson DO 01/29/2013 Office visit Gorge Yo MD 01/06/2013 Office visit Gorge Yo MD 12/09/2012 [facility] Ama Barrios MD 12/09/2012 Office visit Stephanie Richardson LOGISTICS PLANNING MANAGER 11/26/2012 Office visit Gorge Yo MD 10/30/2012 [facility] Gorge Yo MD 10/29/2012 Office visit Gorge Yo MD 10/09/2012 Office visit Melecio Wilkinson DO 08/19/2012 Office visit Melecio Wilkinson DO 08/04/2012 Office visit Melecio Wilkinson DO 07/24/2012 Office visit Gorge Yo MD 07/16/2012 Office visit Melecio Wilkinson DO 06/12/2012 Office visit Gorge Yo MD 06/05/2012 Office visit Goreg Yo MD 05/29/2012 Office visit Gorge Yo [...] Office visit Gorge Yo MD 04/02/2010 [facility] Alfonso Camacho MD 03/31/2010 Laboratory [...]
[2018-01-22] MEDS ORDERED: DIGO125T PO (11:15)
[2018-01-22] MEDS ORDERED: METH750T3 PO (11:17)
--- OUTSIDE RECORDS SUMMARY | 2018-01-22 11:17 | XMS REPORT ---
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 Role Phone Melecio Wilkinson PCP [...] mg) by oral route every 12 hours carvedilol 25 mg oral tablet 03/06/2016 take 1 tablet (25 mg) by oral route 2 times per day with food for 90 days zolpidem 10 mg oral tablet 03/06/2016 05/05/2016 take 1 tablet (10 mg) by oral route once daily at bedtime for 30 days Name Start Date Expiration [...] for 30 days Discontinued by Hospitalist at [place] Augmentin 875-125 mg oral tablet 11/07/2010 03/05/2011 [...] route every 12 hours for 30 days [place] stoned Problem List Description Status Onset SI [...] 07/11/2015 12:00 AM Kenalog, Per 10 Mg [facility]#7702-7757-92 Reviewed 06/19/2011 12:00 AM DRAIN/INJ JOINT/BURSA W/O US Reviewed 06/19/2011 12:00 AM Kenalog 40 Mg [facility]#7388-6310-62 Reviewed 08/25/2015 12:00 AM OFFICE/OUTPATIENT VISIT EST Reviewed 08/23/2015 12:00 AM Decadron, Per 1 Mg [facility]# [address]-17 Reviewed 08/23/2015 12:00 AM Depo-Medrol, Per 80 Mg [facility]#[address]-67 Reviewed 09/07/2015 12:00 AM X-RAY EXAM L-S [...] Reviewed 01/01/2012 12:00 AM Rocephin 1 gm [facility]#[address]-91 Reviewed 01/16/2012 12:00 AM DRAIN/INJ JOINT/BURSA W/O US Reviewed 01/16/2012 12:00 AM Kenalog per 10Mg [facility]#[address]-56(Srinath) Reviewed 02/05/2012 12:[address] ABDOMEN W/O & W/DYE Reviewed 02/05/2012 12:[address] PELVIS W/O & W/DYE Reviewed 05/29/2012 12:00 AM DRAIN/INJ JOINT/BURSA W/O US Reviewed 05/29/2012 12:00 AM SYNVISC, Per 1 Mg (2ml) [facility] [address]-77 Reviewed 06/05/2012 12:00 AM DRAIN/INJ JOINT/BURSA W/O US Reviewed 06/05/2012 12:00 AM SYNVISC, Per 1 Mg (2ml) [facility] [address]-71 Reviewed 06/12/2012 12:00 AM DRAIN/INJ JOINT/BURSA W/O US Reviewed 06/12/2012 12:00 AM SYNVISC, Per 1 Mg (2ml) [facility] [address]-08 Reviewed 07/16/2012 12:00 AM Hepatobiliary ductal system imaging with functional assessment Reviewed 07/16/2012 12:00 AM Decadron 8 mg [facility]#[id number] Reviewed 07/16/2012 12:00 AM Depo-Medrol 80mg [facility]#[id number] Reviewed 07/16/2012 12:00 AM COMPREHEN METABOLIC PANEL Reviewed 07/16/2012 12:00 AM LIPID PANEL Reviewed 07/16/2012 12:00 AM Flu Injection 3 Years And Above [facility]# [address]-88 RHC Reviewed 08/19/2012 12:00 AM METABOLIC PANEL TOTAL CA Reviewed 12/21/2009 12:[address] ABDOMEN W/O & W/DYE Reviewed 10/02/2012 12:00 AM CHEST X-RAY 2VW FRONTAL&LATL Reviewed 10/09/2012 12:00 AM Decadron 8 mg [facility]#91030587300 Reviewed 10/09/2012 12:00 AM Depo-Medrol 80mg [facility]#13509859084 Reviewed 12/09/2012 12:00 AM CHEST X-RAY 2VW [...] 12:00 AM SYNVISC-ONE, Per 1 Mg (6ml) [facility] [address]-89 Reviewed 02/26/2013 12:[address] NECK SPINE W/O & W/DYE Reviewed 04/07/2013 12:00 AM INJECT TRIGGER POINTS 3/> Reviewed 04/07/2013 12:00 AM Kenalog per 10Mg [facility]#[address]-16(Srinath) Reviewed 07/21/2013 12:00 AM CHEST X-RAY 2VW FRONTAL&LATL Reviewed 07/21/2013 12:00 AM Decadron 8 mg [facility]# [address]-46 Reviewed 07/21/2013 12:00 AM Depo-Medrol 80 mg [facility]#[address]-11 Reviewed 07/21/2013 12:00 AM Rocephin 500 mg [facility]#0006-0022-92 Reviewed 09/22/2013 12:00 AM CHEST X-RAY 2VW FRONTAL&LATL Returned 10/29/2013 12:00 AM X-RAY EXAM OF ABDOMEN Reviewed 12/08/2013 12:00 AM THER/PROPH/DIAG INJ SC/IM Reviewed 12/08/2013 12:00 AM Decadron, Per 1 Mg [facility]# [address]-49 Reviewed 12/08/2013 12:00 AM Depo-Medrol, Per 80 Mg [facility]#0866-9665-35 Reviewed 12/08/2013 12:00 AM CHEST X-RAY 2VW [...] Returned 01/05/2014 12:00 AM Decadron 8 mg [facility]# [address]-76 Reviewed 01/05/2014 12:00 AM Depo-Medrol 80 mg [facility]#[address]-51 Reviewed 01/05/2014 12:00 AM Rocephin 1 gram [facility]#5895-3492-51 Reviewed 03/15/2010 12:00 AM PROTHROMBIN TIME Reviewed [...] Reviewed 09/28/2010 12:00 AM Kenalog per 10Mg [facility]#[address]-89(Srinath) Reviewed 05/05/2014 12:00 AM DRAIN/INJ JOINT/BURSA W/O US Reviewed 05/05/2014 12:00 AM SYNVISC-ONE, Per 1 Mg (6ml) [facility] [address]-31 Reviewed 05/06/2014 12:00 AM COMPREHEN METABOLIC PANEL [...] Reviewed 11/07/2010 12:00 AM Rocephin 500 mg [facility]#[address]-17 Reviewed 07/14/2014 12:00 AM Fluzone MEDICARE Only Reviewed 11/29/2010 12:00 AM INJECT TRIGGER POINTS 3/> Reviewed 11/29/2010 12:00 AM Kenalog per 10Mg [facility]#[address]-36(Srinath) Reviewed 07/14/2014 12:00 AM Decadron injection Reviewed [...] (CVA) Jun 27 2010 8:12AM Bronchitis, Acute Nov 2 2010 1:20PM Diabetes Mellitus, Type II Jul [...] Start Date Medicare Part A Medicare C [id number] N/A [employer] - [place]HC [place] [employer] [place] [id number] Wednesday, 2015 Medicare Part A Medicare - Lab/Xray [id number] N/A [place] [employer] Medicare [place] [employer] Ins [id number] N/A [place] Medical Assistance [facility] Medical Assistance Prog [id number] N/A Medicare Part B Medicare Of [place] [id number] Friday, February 22, 2008 Medicare Part A Medicare Part A [id number] N/A [facility] - On License Of [facility] Plan [facility] Comm [id number] Wednesday, September 23, 2015 History of Encounters [...] Melecio Wilkinson DO 06/20/2015 Office visit Melecio Jaja DO [...] [facility] Voided Katty CRAIG 11/11/2014 Office visit 11/11/2014 Office visit Katty CRAIG 11/11/2014 Office visit Melecio Jaja DO 10/14/2014 Office visit Katty CRAIG 09/14/2014 Office visit Katty CRAIG 09/08/2014 [facility] Ama Barrios MD 09/07/2014 Office visit Melecio Jaja DO 08/16/2014 Nurse visit Katty CRAIG 07/19/2014 Office visit Katty CRAIG 07/14/2014 Office visit Melecio Jaja DO 06/21/2014 Office visit Katty Jefferson TIMBER BUCKER 05/20/2014 Office visit Melecio Jaja DO 05/14/2014 Office visit Melecio Jaja DO 05/05/2014 Office visit Katty Jefferson TIMBER BUCKER 04/26/2014 Office visit Katty Jefferson TIMBER BUCKER 03/24/2014 Office visit Katty Jefferson TIMBER BUCKER 02/24/2014 Office visit Katty Jefferson TIMBER BUCKER 01/05/2014 Office visit Melecio Jaja DO 12/23/2013 Office visit Katty Jefferson TIMBER BUCKER 12/23/2013 Office visit Melecio Jaja DO 12/18/2013 Office visit Janis Navarrete SHIP LABORER 12/08/2013 Office visit Janis Navarrete SHIP LABORER 11/25/2013 Office visit Katty Jefferson TIMBER BUCKER 10/29/2013 Office visit Melecio Jaja DO 09/22/2013 Office visit Janis Navarrete SHIP LABORER 07/28/2013 Office visit Katty Jefferson TIMBER BUCKER 07/21/2013 Office visit Melecio Jaja DO 07/08/2013 Office visit Katty Jefferson TIMBER BUCKER 05/06/2013 Office visit Melecio Wilkinson DO 04/07/2013 Office visit Gorge Yo MD 02/26/2013 Office visit Melecio Wilkinson DO 01/29/2013 Office visit Gorge Yo MD 01/06/2013 Office visit Gorge Yo MD 12/09/2012 [facility] Ama Barrios MD 12/09/2012 Office visit Stephanie Richardson SHIP LABORER 11/26/2012 Office visit Gorge Yo MD 10/30/2012 [...] 05/14/2012 Office visit Gorge Yo MD 05/12/2012 [facility] DO 05/11/2012 [facility] DO 03/13/2012 Office visit Gorge Yo MD 02/05/2012 Office visit Melecio Wilkinson DO 01/31/2012 Office visit Gorge Yo MD 01/16/2012 Office visit Groge Yo MD 01/01/2012 Office visit Melecio Wilkinson [...]
[2018-01-22] MEDS ORDERED: RIVA20TA PO (11:18)
[2018-01-22] MEDS ORDERED: NS (IVPB) 50 ML ONE (11:18)
[2018-01-22] MEDS ORDERED: ZOLP10TA5 PO (11:19)
[2018-01-22] MEDS ORDERED: AMLO5TAB2 PO (11:20)
[2018-01-22] MEDS ORDERED: OMEP40CA36 PO (11:20)
[2018-01-22 11:21] LABS: ALBUMIN 3.9 GM/DL (3.2-4.5); BILIRUBIN,TOTAL 0.4 MG/DL (0.1-1.0); CALCIUM 9.3 MG/DL (8.5-10.1); CREATININE SERUM 1.64 MG/DL (0.60-1.30); POTASSIUM 4.1 MMOL/L (3.6-5.0); TOTAL PROTEIN 7.9 GM/DL (6.4-8.2)
[2018-01-22] MEDS ORDERED: PROAMATINE PO (11:21)
[2018-01-22] MEDS ORDERED: OXYC20TA3 PO (11:21)
--- NOTE | 2018-01-22 11:21 | Diagnostic Imaging Report ---
INDICATION: ICD generator replacement. Comparison with 01/05/2009. FINDINGS: Generator has been replaced on the left. The pacemaker leads appear in good position unchanged. Port-A-Cath is now present on the right tip overlying the proximal superior vena caval shadow. There is a new density within the right upper lung since previous examination. Right lower lung is clear. Left lung is clear. Heart is enlarged. No pleural effusion. IMPRESSION: 1. There is increased density in the right upper lung consistent with some infiltrate and atelectasis. 2. Port-A-Cath on the right appears in the proximal superior vena cava. 3. Pacemaker appears intact. Dictated by: Dictated on workstation # [id number]
[2018-01-22] MEDS ORDERED: SUCR1TAB PO ×2 (11:22→11:23)
[2018-01-22] MEDS ORDERED: LOSA25TA21 PO (11:22)
--- OUTSIDE RECORDS SUMMARY | 2018-01-22 11:22 | XMS REPORT ---
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 Name Role Phone Melecio Wilkinson PCP Melecio [...] oral route once daily for 90 days Symbicort 160-4.5 mcg/actuation inhalation HFA aerosol [...] oral route once daily for 5 days albuterol sulfate 2.5 mg /3 mL (0.083 %) inhalation solution for nebulization 09/17/2017 03/16/2018 USE 1 VIAL IN NEBULIZER FOUR TIMES DAILY zolpidem 10 mg oral tablet 09/17/2017 11/16/2017 take 1 tablet (10 mg) by oral route once daily at bedtime for 30 days omeprazole 40 mg oral capsule,delayed release(DR/EC) 09/17/2017 03/16/2018 TAKE 1 CAPSULE BY MOUTH TWICE DAILY oxycodone 30 mg oral tablet,oral only,ext.rel.12 hr 09/17/2017 10/17/2017 take 1 tablet (30 mg) by oral route every 8 hours for 30 days oxycodone 20 mg oral tablet 09/26/2017 10/26/2017 take 1 tablet by oral route q6h prn for 30 days Levaquin 500 mg oral tablet 10/10/2017 take 1 tablet (500 mg) by oral route once daily for 7 days Name Start Date Expiration [...] 30 days changed to Jimmielreto by Dr. eYsenia Cuevas 5 % topical adhesive patch,medicated 02/08/2010 [...] HC BMI BSA BMI Percentile O2 Sat(%) 08/27/2017 3:21:00 PM 156 mmHg 72 bpm 16 rpm 98 F 248 lbs 67 in 38.84 kg/m2 2.31 m2 94 % 07/22/2017 3:11:00 PM 136 mmHg 80 mmHg 73 bpm 22 rpm 98 F 249 lbs 67 in 38.9985 kg/m 2.3107 m 97 % 06/06/2017 10:05:00 AM 144 mmHg 86 mmHg 67 bpm 20 rpm 97.8 F 246 lbs 67 in 38.53 kg/m2 2.30 m2 99 % 04/03/2017 8:14:00 AM 148 mmHg 78 mmHg 86 bpm 22 rpm 97.3 F 242 lbs 67 in 37.9022 kg/m 2.278 m 99 % 03/28/2017 1:32:00 PM 132 mmHg 70 mmHg 83 bpm 20 rpm 98.1 F 241 lbs 67 in 37.75 kg/m2 2.27 m2 98 % 03/11/2017 9:12:00 AM 124 mmHg 76 mmHg 84 bpm 18 rpm 97 F 237 lbs 67 in 37.1191 kg/m 2.2543 m 95 % 02/22/2017 9:48:00 AM 137 mmHg 75 mmHg 88 bpm 18 rpm 97.6 F 242 lbs 67 in 37.90 kg/m2 2.28 m2 92 % 02/05/2017 1:41:00 PM 130 mmHg 78 mmHg 78 bpm 18 rpm 97.5 F 247 lbs 67 in 38.6853 kg/m 2.3014 m 97 % 01/09/2017 8:32:00 AM 146 mmHg [...] 07/11/2015 12:00 AM Kenalog, Per 10 Mg [facility]#3271-0430-02 Reviewed 12/07/2014 12:00 AM OFFICE/OUTPATIENT VISIT EST Reviewed 06/19/2011 12:00 AM DRAIN/INJ JOINT/BURSA W/O US Reviewed 06/19/2011 12:00 AM Kenalog 40 Mg [facility] [place]#2093-2966-12 Reviewed 08/25/2015 12:00 AM OFFICE/OUTPATIENT VISIT EST Reviewed 08/23/2015 12:00 AM Decadron, Per 1 Mg [facility]# [address]-85 Reviewed 08/23/2015 12:00 AM Depo-Medrol, Per 80 Mg [facility]#[address]-24 Reviewed 09/07/2015 12:00 AM X-RAY EXAM L-S [...] 10/23/2015 12:00 AM Decadron, Per 1 Mg [place]# [address]-27 Reviewed 10/23/2015 12:00 AM Depo-Medrol, Per 80 Mg [facility]#[address]-76 Reviewed 07/26/2011 12:00 AM X-RAY EXAM OF ABDOMEN Reviewed 11/21/2015 12:00 AM Orthopedics Consultation Reviewed 11/21/2015 12:00 AM Physical Therapy Consultation Reviewed 12/20/2015 12:00 AM EXTREMITY STUDY Reviewed 10/12/2011 12:00 AM EXTREMITY STUDY Reviewed 05/10/2016 12:00 AM CONTRAST X-RAY OF SHOULDER Reviewed 07/09/2016 12:00 AM PNEUMOCOCCAL VACC 13 RIP IM Reviewed 08/08/2016 12:00 AM Decadron, Per 1 Mg [facility]# [address]-72 Reviewed 08/08/2016 12:00 AM Depo-Medrol, Per 80 Mg [facility]#[address]-51 Reviewed 01/01/2012 12:00 AM AIRWAY INHALATION TREATMENT Reviewed 01/01/2012 12:00 AM Rocephin 1 gm [facility]#99476-2010-50 Reviewed 01/16/2012 12:00 AM DRAIN/INJ JOINT/BURSA W/O US Reviewed 01/16/2012 12:00 AM Kenalog per 10Mg [facility] [place] [place]#[address]-03(Srinath) Reviewed 09/26/2016 12:00 AM CHEST X-RAY 2VW [...] 12:00 AM SYNVISC, Per 1 Mg (2ml) [facility] [address]-70 Reviewed 06/05/2012 12:00 AM DRAIN/INJ JOINT/BURSA W/O US Reviewed 06/05/2012 12:00 AM SYNVISC, Per 1 Mg (2ml) [facility] [address]-37 Reviewed 06/12/2012 12:00 AM DRAIN/INJ JOINT/BURSA W/O US Reviewed 06/12/2012 12:00 AM SYNVISC, Per 1 Mg (2ml) [facility] [address]-38 Reviewed 06/06/2017 12:00 AM Decadron 4mg Injection Reviewed 06/06/2017 12:00 AM Depo-Medrol 40mg Injection Reviewed 06/06/2017 12:[address] ABD & PELV 1/> REGNS Reviewed 07/16/2012 12:00 AM Hepatobiliary ductal system imaging with functional assessment Reviewed 07/16/2012 12:00 AM Decadron 8 mg [facility]#58557843157 Reviewed 07/16/2012 12:00 AM Depo-Medrol 80mg [facility]#77666719724 Reviewed 07/16/2012 12:00 AM COMPREHEN METABOLIC PANEL Reviewed 07/16/2012 12:00 AM LIPID PANEL Reviewed 07/16/2012 12:00 AM Flu Injection 3 Years And Above [facility]# [address]-52 RHC Reviewed 08/19/2012 12:00 AM METABOLIC PANEL TOTAL CA Reviewed 12/21/2009 12:[address] ABDOMEN W/O & W/DYE Reviewed 10/02/2012 12:00 AM CHEST X-RAY 2VW FRONTAL&LATL Reviewed 10/09/2012 12:00 AM Decadron 8 mg [facility]#76334504603 Reviewed 10/09/2012 12:00 AM Depo-Medrol 80mg [facility]#94053629552 Reviewed 12/09/2012 12:00 AM CHEST X-RAY 2VW [...] 12:00 AM SYNVISC-ONE, Per 1 Mg (6ml) [facility] [address]-44 Reviewed 02/26/2013 12:00 AM Physical Therapy Reviewed 02/26/2013 12:[address] NECK SPINE W/O & W/DYE Reviewed 04/07/2013 12:00 AM INJECT TRIGGER POINTS 3/> Reviewed 04/07/2013 12:00 AM Kenalog per 10Mg [facility] [place]#[address]-16(Srinath) Reviewed 07/21/2013 12:00 AM CHEST X-RAY 2VW FRONTAL&LATL Reviewed 07/21/2013 12:00 AM Decadron 8 mg [facility]# [address]-55 Reviewed 07/21/2013 12:00 AM Depo-Medrol 80 mg [facility]#[address]-21 Reviewed 07/21/2013 12:00 AM Rocephin 500 mg [facility]#2980-3640-97 Reviewed 09/22/2013 12:00 AM CHEST X-RAY 2VW FRONTAL&LATL Reviewed 10/29/2013 12:00 AM X-RAY EXAM OF ABDOMEN Reviewed 12/08/2013 12:00 AM THER/PROPH/DIAG INJ SC/IM Reviewed 12/08/2013 12:00 AM Decadron, Per 1 Mg [facility]# [address]-63 Reviewed 12/08/2013 12:00 AM Depo-Medrol, Per 80 Mg [facility]#9025-3777-88 Reviewed 12/08/2013 12:00 AM CHEST X-RAY 2VW [...] Reviewed 01/05/2014 12:00 AM Decadron 8 mg [facility]# [address]-73 Reviewed 01/05/2014 12:00 AM Depo-Medrol 80 mg [facility]#[address]-44 Reviewed 01/05/2014 12:00 AM Rocephin 1 gram [facility]#4466-1593-33 Reviewed 03/15/2010 12:00 AM PROTHROMBIN TIME Reviewed [...] Reviewed 09/28/2010 12:00 AM Kenalog per 10Mg [facility] [place]#[address]-75(Srinath) Reviewed 05/05/2014 12:00 AM DRAIN/INJ JOINT/BURSA W/O US Reviewed 05/05/2014 12:00 AM SYNVISC-ONE, Per 1 Mg (6ml) [facility] [address]-21 Reviewed 05/06/2014 12:00 AM COMPREHEN METABOLIC PANEL [...] Reviewed 11/07/2010 12:00 AM Rocephin 500 mg [facility]#[address]-87 Reviewed 07/14/2014 12:00 AM Fluzone MEDICARE Only Reviewed 11/29/2010 12:00 AM INJECT TRIGGER POINTS 3/> Reviewed 11/29/2010 12:00 AM Kenalog per 10Mg [facility] [place] [place]#[address]-76(Srinath) Reviewed 07/14/2014 12:00 AM Decadron injection Reviewed [...] CVX Pneumococcal 07/09/2016 [facility] Prevnar 13 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 07/09/2016 07/28/2015 133 History [...] knee May 13 2011 9:44AM Osteoarthritis, knee May 20 2011 9:54AM Abdominal Pain, RLQ Jul [...] 3:13PM Acute bronchitis Aug 27 2017 3:26PM Payers Insurance Name Company Name Plan Name Plan Number Policy Number Policy Group Number Start Date Medicare RHC Medicare RHC [id number] N/[place] [employer] [place] [employer] [place] [id number] N/A [place] [employer] Medicare [place] [employer] [phone] N/A [place] Medical [place] Program [place] Prog [id number] N/A Medicare Part B Medicare Of [place] [id number] Friday, 2008 Medicare Part A Medicare Part A [id number] N/A [employer] - RHC - Community Plan of [facility] RHC Comm [id number] Wednesday, 2015 [employer] [place] State [place] [employer] [place] State Plan [id number] Wednesday, 2015 Medicare Part A Medicare - Lab/Xray [id number] N/A History of Encounters Visit Date Visit Type Provider 08/27/2017 Office visit Melecio Jaja DO 07/22/2017 Office visit Melecio Jaja DO 06/06/2017 Office visit Melecio Jaja DO 04/03/2017 Office visit Melecio Jaja DO 04/01/2017 Hospital Ama Barrios MD 03/28/2017 Office visit Melecio Jaja DO 03/11/2017 Office visit Melecio Jaja DO 03/05/2017 Hospital Ama Barrios MD 02/22/2017 Office visit Melecio Jaja DO 02/05/2017 Office visit Melecio Jaja DO 2017 Hospital Rasta Mckeon MD 2017 Hospital Ama Barrios MD 01/09/2017 Office visit Melecio Jaja DO 01/01/2017 [facility] Seth Devlin DO 12/31/2016 [facility] Rasta [facility]keon [...] Ama Barrios MD 06/07/2016 Office visit Melecio Wilkinson DO 05/03/2016 Office visit Melecio Jaja DO [...] Melecio Jaja DO 05/09/2015 Office visit Melecio Cruzte DO [...] DO 01/12/2015 Office visit Katty CRAIG 12/16/2014 [facility] Alfa Platt MD 12/14/2014 Voided Melecio Jaja DO 12/08/2014 Office visit Alfa Platt MD 12/08/2014 Office visit Melecio Wilkinson DO 12/07/2014 Nurse visit Riri Salazar MD 12/02/2014 [facility] Alfa Platt MD 12/02/2014 [facility] Magi Powers MD 11/29/2014 [facility] Magi Powers MD 11/29/2014 Voided Katty CRAIG 11/11/2014 Office visit 11/11/2014 Office visit Katty CRAIG 11/11/2014 Office visit Melecio Wilkinson DO 10/14/2014 Office visit Katty CRAIG 09/14/2014 Office visit Katty CRAIG 09/08/2014 [facility] Ama Barrios MD 09/07/2014 Office [...] 01/06/2013 Office visit Gorge Yo MD 12/09/2012 [facility] Ama Barrios MD 12/09/2012 Office visit Stephanie Richardson APRN 11/26/2012 Office visit Gorge Yo MD 10/30/2012 [facility] Gorge Yo MD 10/29/2012 Office [...] 05/14/2012 Office visit Gorge Yo MD 05/12/2012 [facility] DO 05/11/2012 [facility] DO 03/13/2012 Office visit Gorge [...] 03/05/2011 Office visit Melecio Wilkinson DO 02/06/2011 [facility] Gorge Yo MD 01/08/2011 Office visit Melecio Wilkinson DO 12/27/2010 Office visit Gorge Yo MD 11/29/2010 Office visit Gorge Yo MD 11/07/2010 Office visit Melecio Wilkinson DO 09/28/2010 Office visit Gorge Yo MD 09/05/2010 [facility] Gorge Yo MD 08/28/2010 Office [...] MD 03/31/2010 Laboratory Alfonso Camacho MD 03/31/2010 [facility] Alfonso Camacho MD 03/21/2010 Procedures [...]
[2018-01-22] MEDS ORDERED: ATOR40TA70 PO (11:23)
[2018-01-22 11:24] LABS: INR 1.7 (0.8-1.4); PROTHROMBIN TIME PATIENT 20.1 SEC (12.2-14.7)
[2018-01-22] MEDS ORDERED: OXC20TCR PO (11:24)
[2018-01-22 11:26] LABS: BACTERIA,URINE NEGATIVE /HPF; SQUAMOUS EPITHELIAL CELL,UR 0-2 /HPF
--- OUTSIDE RECORDS SUMMARY | 2018-01-22 11:26 | XMS REPORT ---
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 Yesenia Cuevas 5 % topical [...] for 30 days Discontinued by Hospitalist at [place] Augmentin 875-125 mg oral tablet 11/07/2010 03/05/2011 [...] route every 12 hours for 30 days [place] stoned Problem List Description Status Onset SI [...] HC BMI BSA BMI Percentile O2 Sat(%) 08/28/2016 8:10:00 AM 139 mmHg 78 mmHg [...] 07/11/2015 12:00 AM Kenalog, Per 10 Mg [facility]#4620-8424-86 Reviewed 06/19/2011 12:00 AM DRAIN/INJ JOINT/BURSA W/O US Reviewed 06/19/2011 12:00 AM Kenalog 40 Mg [facility]#1792-0056-49 Reviewed 08/25/2015 12:00 AM OFFICE/OUTPATIENT VISIT EST Reviewed 08/23/2015 12:00 AM Decadron, Per 1 Mg [facility]# [address]-64 Reviewed 08/23/2015 12:00 AM Depo-Medrol, Per 80 Mg [facility]#[address]-31 Reviewed 09/07/2015 12:00 AM X-RAY EXAM L-S [...] 08/08/2016 12:00 AM Decadron, Per 1 Mg [facility]# [address]-38 Reviewed 08/08/2016 12:00 AM Depo-Medrol, Per 80 Mg [facility]#[address]-55 Reviewed 01/01/2012 12:00 AM Rocephin 1 gm [facility]#[address]-98 Reviewed 01/16/2012 12:00 AM DRAIN/INJ JOINT/BURSA W/O US Reviewed 01/16/2012 12:00 AM Kenalog per 10Mg [facility]#[address]-68(Srinath) Reviewed 02/05/2012 12:[address] ABDOMEN W/O & W/DYE Reviewed 02/05/2012 12:[address] PELVIS W/O & W/DYE Reviewed 05/29/2012 12:00 AM DRAIN/INJ JOINT/BURSA W/O US Reviewed 05/29/2012 12:00 AM SYNVISC, Per 1 Mg (2ml) [facility] [address]-65 Reviewed 06/05/2012 12:00 AM DRAIN/INJ JOINT/BURSA W/O US Reviewed 06/05/2012 12:00 AM SYNVISC, Per 1 Mg (2ml) [facility] [address]-95 Reviewed 06/12/2012 12:00 AM DRAIN/INJ JOINT/BURSA W/O US Reviewed 06/12/2012 12:00 AM SYNVISC, Per 1 Mg (2ml) [facility] [address]-11 Reviewed 07/16/2012 12:00 AM Hepatobiliary ductal system imaging with functional assessment Reviewed 07/16/2012 12:00 AM Decadron 8 mg [facility]#[id number] Reviewed 07/16/2012 12:00 AM Depo-Medrol 80mg [facility]#[id number] Reviewed 07/16/2012 12:00 AM COMPREHEN METABOLIC PANEL Reviewed 07/16/2012 12:00 AM LIPID PANEL Reviewed 07/16/2012 12:00 AM Flu Injection 3 Years And Above [facility]# [address]-67 RHC Reviewed 08/19/2012 12:00 AM METABOLIC PANEL TOTAL CA Reviewed 12/21/2009 12:[address] ABDOMEN W/O & W/DYE Reviewed 10/02/2012 12:00 AM CHEST X-RAY 2VW FRONTAL&LATL Reviewed 10/09/2012 12:00 AM Decadron 8 mg [facility]#48314009958 Reviewed 10/09/2012 12:00 AM Depo-Medrol 80mg [facility]#64813866738 Reviewed 12/09/2012 12:00 AM CHEST X-RAY 2VW [...] 12:00 AM SYNVISC-ONE, Per 1 Mg (6ml) [facility] [address]-67 Reviewed 02/26/2013 12:[address] NECK SPINE W/O & W/DYE Reviewed 04/07/2013 12:00 AM INJECT TRIGGER POINTS 3/> Reviewed 04/07/2013 12:00 AM Kenalog per 10Mg [facility]#[address]-07(Srinath) Reviewed 07/21/2013 12:00 AM CHEST X-RAY 2VW FRONTAL&LATL Reviewed 07/21/2013 12:00 AM Decadron 8 mg [facility]# [address]-84 Reviewed 07/21/2013 12:00 AM Depo-Medrol 80 mg [facility]#[address]-29 Reviewed 07/21/2013 12:00 AM Rocephin 500 mg [facility]#4461-7707-41 Reviewed 09/22/2013 12:00 AM CHEST X-RAY 2VW FRONTAL&LATL Reviewed 10/29/2013 12:00 AM X-RAY EXAM OF ABDOMEN Reviewed 12/08/2013 12:00 AM THER/PROPH/DIAG INJ SC/IM Reviewed 12/08/2013 12:00 AM Decadron, Per 1 Mg [facility]# [address]-98 Reviewed 12/08/2013 12:00 AM Depo-Medrol, Per 80 Mg [facility]#4564-8139-02 Reviewed 12/08/2013 12:00 AM CHEST X-RAY 2VW [...] Reviewed 01/05/2014 12:00 AM Decadron 8 mg [facility]# [address]-10 Reviewed 01/05/2014 12:00 AM Depo-Medrol 80 mg [facility]#[address]-08 Reviewed 01/05/2014 12:00 AM Rocephin 1 gram [facility]#5590-3894-99 Reviewed 03/15/2010 12:00 AM PROTHROMBIN TIME Reviewed [...] Reviewed 09/28/2010 12:00 AM Kenalog per 10Mg [facility]#[address]-19(Srinath) Reviewed 05/05/2014 12:00 AM DRAIN/INJ JOINT/BURSA W/O US Reviewed 05/05/2014 12:00 AM SYNVISC-ONE, Per 1 Mg (6ml) [facility] [address]-06 Reviewed 05/06/2014 12:00 AM COMPREHEN METABOLIC PANEL [...] Reviewed 11/07/2010 12:00 AM Rocephin 500 mg [facility]#[address]-19 Reviewed 07/14/2014 12:00 AM Fluzone MEDICARE Only Reviewed 11/29/2010 12:00 AM INJECT TRIGGER POINTS 3/> Reviewed 11/29/2010 12:00 AM Kenalog per 10Mg [facility]#[address]-42(Srinath) Reviewed 07/14/2014 12:00 AM Decadron injection Reviewed [...] 48 eGFR AA* 58 MAGNESIUM 1.80 mg/dL History Of Immunizations Name Date Admin Mfg Name Mfg Code Trade Name Lot# Route Inj Vis Given Vis Pub CVX Pneumococcal 07/09/2016 Rudy-Bran WAL Prevnar 13 [id number] Intramuscular Right Deltoid 07/09/2016 07/28/2015 133 History of Past Illness Name Date of Onset Comments SI joint pain Dec 1 2009 8:58AM Muscle Spasm Aug 23 2009 [...] 14 2010 8:06AM Pain in joint; Knee,right Jun [...] 6 2013 9:08AM Diabetes Mellitus, Type II b 2013 9:08AM Gastroenteritis, Noninfectious Feb 2013 9:08AM Lumbar spondylosis Nov 25 2013 [...] Start Date Medicare Part A Medicare RHC [id number] N/A [employer] - RHC - [place] State Plan [employer] - RHC [place] State Plan [id number] Wednesday, 2015 Medicare Part A Medicare - Lab/Xray [id number] N/A [employer] [place] State Plan [facility] [id number] N/A [employer] Medicare [employer] Ins [id number] N/A [place] Medical Assistance [facility] Medical Assistance Prog [id number] N/A Medicare Part B Medicare Of [place] [id number] Friday, February 22, 2008 Medicare Part A Medicare Part A [id number] N/A [facility] - RHC - Community Plan [facility] RHC Comm [id number] Wednesday, September 23, 2015 History of Encounters Visit Date Visit Type Provider 08/28/2016 Office visit Melecio Wilkinson DO 08/08/2016 Office visit Melecio Wilkinson DO 07/09/2016 Office visit Melecio Wilkinson DO [...] Melecio Wilkinson DO 11/21/2015 Office visit Melecio Jaja DO 10/17/2015 Office visit Melecio Jaja DO 09/26/2015 Office visit Melecio Jaja DO 09/07/2015 Office visit Katty CRAIG 08/25/2015 Nurse visit Katty CRAIG 08/23/2015 Office visit Melecio Jaja DO 08/08/2015 Office visit Melecio Jaja DO 08/05/2015 Office visit Katty CRAGI 07/11/2015 Office visit Katty CRAIG 07/06/2015 Office visit Katty CRAIG 06/27/2015 Office visit Melecio Jjaa DO 06/20/2015 Office visit Melecio Jaja DO [...] [facility] 11/29/2014 [facility] Magi Powers MD 11/29/2014 Voided Katty CRAIG 11/11/2014 Office visit 11/11/2014 Office visit Katty CRAIG 11/11/2014 Office visit Melecio Jaja DO 10/14/2014 Office visit aKtty CRAIG 09/14/2014 Office visit Katty CRAIG 09/08/2014 [facility] Ama Barrios MD 09/07/2014 Office visit Melecio Jaja DO 08/16/2014 Nurse visit Katty DURÁNP 07/19/2014 Office visit Katty CRAIG 07/14/2014 Office [...] Jaja DO 12/18/2013 Office visit Janis Navarrete CHAIRMAN AND CHIEF EXECUTIVE OFFICER 12/08/2013 Office visit Janis Navarrete APRN 11/25/2013 Office visit Katty CRAIG 10/29/2013 Office visit Melecio Wilkinson DO 09/22/2013 Office visit Janis Navarrete CHAIRMAN AND CHIE[employer] EXECUTIVE OFFICER 07/28/2013 Office visit Katty CRAIG 07/21/2013 Office [...] 05/14/2012 Office visit Gorge Yo MD 05/12/2012 [facility] DO 05/11/2012 [facility] DO 03/13/2012 Office visit [...] 04/06/2010 Office visit Gorge Yo MD 04/02/2010 [facility] Alfonso Camacho MD 03/31/2010 Laboratory [...]
--- OUTSIDE RECORDS SUMMARY | 2018-01-22 11:31 | XMS REPORT ---
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 Name Role Phone Melecio Wilkinson PCP [...] oral route once daily for 90 days omeprazole 40 mg oral capsule,delayed release(DR/EC) 01/24/2017 TAKE 1 CAPSULE BY MOUTH TWICE DAILY clonidine HCl 0.2 mg oral tablet 01/24/2017 [...] TABLET BY MOUTH TWICE DAILY WITH FOOD oxycodone 20 mg oral tablet,oral only,ext.rel.12 hr 03/29/2017 04/28/2017 take 1 tablet (20 mg) by oral route every 8 hours for 30 days oxycodone 20 mg oral tablet 03/29/2017 04/28/2017 take 1 tablet by oral route q6h prn for 30 days Spiriva Respimat 2.5 mcg/actuation inhalation mist 04/03/2017 inhale 2 puffs (5 mcg) by inhalation route once daily at the same time each day zolpidem 10 mg oral tablet 04/19/2017 06/18/2017 take 1 tablet (10 mg) by oral route once daily at bedtime for 30 days Pyridium 200 mg oral tablet 04/19/2017 04/21/2017 take 1 tablet (200 mg) by oral route 3 times per day after meals for 2 days Name Start Date Expiration Date SIG [...] route once daily for 30 days Discontinued Name Start Date [...] for 30 days Discontinued by Hospitalist at [place] niacin 500 mg oral tablet 10/10/2016 take [...] every 12 hours for 30 days Kandis Colemanza 24 mcg oral capsule 05/03/2016 10/10/2016 take [...] 12:00 AM Kenalog, Per 10 Mg [facility]#0682-5032-73 Reviewed 12/07/2014 12:00 AM OFFICE/OUTPATIENT VISIT EST Reviewed 06/19/2011 12:00 AM DRAIN/INJ JOINT/BURSA W/O US Reviewed 06/19/2011 12:00 AM Kenalog 40 Mg Im-[facility]#1642-1097-60 Reviewed 08/25/2015 12:00 AM OFFICE/OUTPATIENT VISIT EST Reviewed 08/23/2015 12:00 AM Decadron, Per 1 Mg [facility]# [address]-21 Reviewed 08/23/2015 12:00 AM Depo-Medrol, Per 80 Mg [facility]#[address]-63 Reviewed 09/07/2015 12:00 AM X-RAY EXAM L-S [...] 10/23/2015 12:00 AM Decadron, Per 1 Mg [facility]# [address]-24 Reviewed 10/23/2015 12:00 AM Depo-Medrol, Per 80 Mg [facility]#[address]-82 Reviewed 07/26/2011 12:00 AM X-RAY EXAM OF ABDOMEN Reviewed 11/21/2015 12:00 AM Orthopedics Consultation Reviewed 11/21/2015 12:00 AM Physical Therapy Consultation Reviewed 12/20/2015 12:00 AM EXTREMITY STUDY Reviewed 10/12/2011 12:00 AM EXTREMITY STUDY Reviewed 05/10/2016 12:00 AM CONTRAST X-RAY OF SHOULDER Reviewed 07/09/2016 12:00 AM PNEUMOCOCCAL VACC 13 RIP IM Reviewed 08/08/2016 12:00 AM Decadron, Per 1 Mg [facility]# [address]-97 Reviewed 08/08/2016 12:00 AM Depo-Medrol, Per 80 Mg [facility]#[address]-63 Reviewed 01/01/2012 12:00 AM AIRWAY INHALATION TREATMENT Reviewed 01/01/2012 12:00 AM Rocephin 1 gm [facility]#[address]-96 Reviewed 01/16/2012 12:00 AM DRAIN/INJ JOINT/BURSA W/O US Reviewed 01/16/2012 12:00 AM Kenalog per 10Mg [facility]#[address]-23(Srinath) Reviewed 09/26/2016 12:00 AM CHEST X-RAY 2VW [...] AM SYNVISC, Per 1 Mg (2ml) [facility] [address]-75 Reviewed 06/05/2012 12:00 AM DRAIN/INJ JOINT/BURSA W/O US Reviewed 06/05/2012 12:00 AM SYNVISC, Per 1 Mg (2ml) [facility] [address]-86 Reviewed 06/12/2012 12:00 AM DRAIN/INJ JOINT/BURSA W/O US Reviewed 06/12/2012 12:00 AM SYNVISC, Per 1 Mg (2ml) [facility] [address]-79 Reviewed 07/16/2012 12:00 AM Hepatobiliary ductal system imaging with functional assessment Reviewed 07/16/2012 12:00 AM Decadron 8 mg [facility]#[id number] Reviewed 07/16/2012 12:00 AM Depo-Medrol 80mg [facility]#94037613057 Reviewed 07/16/2012 12:00 AM COMPREHEN METABOLIC PANEL Reviewed 07/16/2012 12:00 AM LIPID PANEL Reviewed 07/16/2012 12:00 AM Flu Injection 3 Years And Above [facility]# [address]-26 RHC Reviewed 08/19/2012 12:00 AM METABOLIC PANEL TOTAL CA Reviewed 12/21/2009 12:[address] ABDOMEN W/O & W/DYE Reviewed 10/02/2012 12:00 AM CHEST X-RAY 2VW FRONTAL&LATL Reviewed 10/09/2012 12:00 AM Decadron 8 mg [facility]#30526865035 Reviewed 10/09/2012 12:00 AM Depo-Medrol 80mg [facility]#24187503203 Reviewed 12/09/2012 12:00 AM CHEST X-RAY 2VW [...] AM SYNVISC-ONE, Per 1 Mg (6ml) [facility] [address]-45 Reviewed 02/26/2013 12:00 AM Physical Therapy Reviewed 02/26/2013 12:[address] NECK SPINE W/O & W/DYE Reviewed 04/07/2013 12:00 AM INJECT TRIGGER POINTS 3/> Reviewed 04/07/2013 12:00 AM Kenalog per 10Mg [facility]#[address]-66(Srinath) Reviewed 07/21/2013 12:00 AM CHEST X-RAY 2VW FRONTAL&LATL Reviewed 07/21/2013 12:00 AM Decadron 8 mg [facility]# [address]-33 Reviewed 07/21/2013 12:00 AM Depo-Medrol 80 mg [facility]#[address]-24 Reviewed 07/21/2013 12:00 AM Rocephin 500 mg [facility]#3346-7132-98 Reviewed 09/22/2013 12:00 AM CHEST X-RAY 2VW FRONTAL&LATL Reviewed 10/29/2013 12:00 AM X-RAY EXAM OF ABDOMEN Reviewed 12/08/2013 12:00 AM THER/PROPH/DIAG INJ SC/IM Reviewed 12/08/2013 12:00 AM Decadron, Per 1 Mg [facility]# [address]-62 Reviewed 12/08/2013 12:00 AM Depo-Medrol, Per 80 Mg [facility]#1091-5168-32 Reviewed 12/08/2013 12:00 AM CHEST X-RAY 2VW [...] Reviewed 01/05/2014 12:00 AM Decadron 8 mg [facility]# [address]-54 Reviewed 01/05/2014 12:00 AM Depo-Medrol 80 mg [facility]#[address]-28 Reviewed 01/05/2014 12:00 AM Rocephin 1 gram [facility]#7421-8668-26 Reviewed 03/15/2010 12:00 AM PROTHROMBIN TIME Reviewed [...] 09/28/2010 12:00 AM Kenalog per 10Mg [facility]#[address]-76(Srinath) Reviewed 05/05/2014 12:00 AM DRAIN/INJ JOINT/BURSA W/O US Reviewed 05/05/2014 12:00 AM SYNVISC-ONE, Per 1 Mg (6ml) [facility] [address]-99 Reviewed 05/06/2014 12:00 AM COMPREHEN METABOLIC PANEL [...] 11/07/2010 12:00 AM Rocephin 500 mg [facility]#[address]-46 Reviewed 07/14/2014 12:00 AM Fluzone MEDICARE Only Reviewed 11/29/2010 12:00 AM INJECT TRIGGER POINTS 3/> Reviewed 11/29/2010 12:00 AM Kenalog per 10Mg -[facility]#[address]-04(Srinath) Reviewed 07/14/2014 12:00 AM Decadron injection Reviewed [...] 0.27 #BASO 0.03 MANUAL DIFF NOT IND 02/11/2017 3:17 PM GLUCOSE 103.0 mg/dLSODIUM 145.0 mmol/LPOTASSIUM 4.30 mmol/ LCHLORIDE 108.0 mmol/LCO2 28.0 mmol/LBUN 16.0 mg/dLCREATININE 1.50 mg/dLCALCIUM 9.30 mg/dLAGE 57 GFR NonAA 48 GFR AA 58 eGFR 48 eGFR AA* 58 MAGNESIUM 2.0 mg/dL 02/22/2017 10:30 AM HGB A1C 6.10 %Est [...] AA 63 eGFR 52 eGFR AA* >60 04/17/2017 8:25 AM VITAMIN D 7.80 ng/mLURIC ACID 8.8 mg/dLGLUCOSE 116.0 mg/ dLSODIUM 140.0 mmol/LPOTASSIUM 4.10 mmol/LCHLORIDE 103.0 mmol/LCO2 27.0 mmol/ LBUN 11.0 mg/dLCREATININE 1.40 mg/dLALBUMIN 3.60 g/dLCALCIUM 9.20 mg/ dLPHOSPHORUS 3.20 mg/dLAGE 57 GFR NonAA 52 GFR AA 63 eGFR 52 eGFR AA* >60 WBC 9.6 RBC 4.54 HGB 12.10 g/dLHCT 39.40 %MCV 87.0 fLMCH 26.70 pgMCHC 30.70 g/dLRDW SD 60 RDW CV 19.0 %MPV 8.90 fLPLT 286 NRBC# 0.00 NRBC% 0.0 %NEUT 78.20 %%LYMP 10.0 %%MONO 6.20 %%EOS 4.10 %%BASO 0.50 %#NEUT 7.48 #LYMP 0.96 #MONO 0.59 #EOS 0.39 #BASO 0.05 MANUAL DIFF NOT IND PTH, Intact 85 04/17/2017 8:31 AM COLOR YELLOW APPEARANCE CLEAR SPEC GRAV 1.015 pH 6.0 PROTEIN 30 GLUCOSE NEGATIVE mg/dLKETONE NEGATIVE BILIRUBIN NEGATIVE BLOOD NEGATIVE NITRITE NEGATIVE LEUK SCREEN NEGATIVE WBC/HPF RARE RBC/HPF NEGATIVE CASTS/LPF NEGATIVE /LPFCRYSTALS TRACE AMORPH MUCOUS THRDS NEGATIVE BACTERIA FEW EPITH CELLS FEW SQUAMOUS /HPFTRICHOMONAS NEGATIVE YEAST NEGATIVE History Of Immunizations Name Date Admin Mfg Name Mfg Code Trade Name Lot# Route Inj Vis Given Vis Pub CVX Pneumococcal 07/09/2016 Vmabg-Vidxin-Wlddwfz-Pracharbel WAL Prevnar 13 [id number] Intramuscular Right Deltoid 07/09/2016 07/28/2015 133 History [...] Number Start Date Medicare RHC Medicare RHC [id number] N/[place] [employer] [place] [employer] [place] [id number] N/A [place] [employer] [place] [employer] Ins [id number] N/A [facility] Medical Assistance Pro [id number] N/A Medicare Part B Medicare Of [place] [id number] Friday, 2008 Medicare Part A Medicare Part A [id number] N/A [facility] - RHC - Community Plan [facility] RHC Comm [id number] Wednesday, 2015 [employer] [place] [employer] [place] [id number] Wednesday, 2015 Medicare Part A Medicare - Lab/Xray [id number] N/A History of Encounters Visit Date Visit [...] Melecio Jaja DO 01/19/2016 Office visit Melecio Wilkinson DO 12/20/2015 Office visit Melecio Jaja DO [...] [facility] 11/29/2014 [facility] Magi Powers MD 11/29/2014 Voided Katty [...] Office visit Gorge Yo MD 05/12/2012 [facility] DO 05/11/2012 [facility] DO 03/13/2012 Office visit Gorge [...] 04/06/2010 Office visit Gorge Yo MD 04/02/2010 [facility] Alfonso Camacho MD 03/31/2010 Laboratory Alfonso Camacho MD 03/31/2010 Laboratory Alfonso Camacho MD 03/31/2010 [facility] Alfonso Camacho MD 03/21/2010 Procedures Gorge Yo MD 03/16/2010 Office visit Gorge Yo MD 03/15/2010 Office visit Melecio Wilkinson DO 02/23/2010 Office visit Gorge Yo MD 02/08/2010 Office visit Gorge Yo MD 12/28/2009 Office visit Goreg Yo MD 12/21/2009 Office visit Melecio Wilkinson [...]
--- OUTSIDE RECORDS SUMMARY | 2018-01-22 11:35 | XMS REPORT ---
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 Yesenia Landersoderm 5 % topical adhesive patch,medicated 02/08/2010 08/04/2012 [...] HC BMI BSA BMI Percentile O2 Sat(%) 11/07/2017 8:20:00 AM 142 mmHg 78 mmHg 78 bpm 22 rpm 97.8 F 240 lbs 67 in 37.59 kg/m2 2.27 m2 96 % 10/22/2017 9:26:00 AM 142 mmHg 84 mmHg 85 bpm 24 rpm 97.7 F 239.125 lbs 67 in 37.4519 kg/m 2.2644 m 93 % 08/27/2017 3:21:00 PM 156 mmHg [...] 12:00 AM Kenalog, Per 10 Mg [facility]#4898-1249-51 Reviewed 12/07/2014 12:00 AM OFFICE/OUTPATIENT VISIT EST Reviewed 06/19/2011 12:00 AM DRAIN/INJ JOINT/BURSA W/O US Reviewed 06/19/2011 12:00 AM Kenalog 40 Mg Im-Nd#6750-8446-17 Reviewed 08/25/2015 12:00 AM OFFICE/OUTPATIENT VISIT EST Reviewed 08/23/2015 12:00 AM Decadron, Per 1 Mg [facility]# [address]-35 Reviewed 08/23/2015 12:00 AM Depo-Medrol, Per 80 Mg [facility]#[address]-45 Reviewed 09/07/2015 12:00 AM X-RAY EXAM L-S [...] 10/23/2015 12:00 AM Decadron, Per 1 Mg [facility]# [address]-58 Reviewed 10/23/2015 12:00 AM Depo-Medrol, Per 80 Mg [facility]#[address]-06 Reviewed 07/26/2011 12:00 AM X-RAY EXAM OF ABDOMEN Reviewed 11/21/2015 12:00 AM Orthopedics Consultation Reviewed 11/21/2015 12:00 AM Physical Therapy Consultation Reviewed 12/20/2015 12:00 AM EXTREMITY STUDY Reviewed 10/12/2011 12:00 AM EXTREMITY STUDY Reviewed 05/10/2016 12:00 AM CONTRAST X-RAY OF SHOULDER Reviewed 07/09/2016 12:00 AM PNEUMOCOCCAL VACC 13 RIP IM Reviewed 08/08/2016 12:00 AM Decadron, Per 1 Mg [facility]# [address]-58 Reviewed 08/08/2016 12:00 AM Depo-Medrol, Per 80 Mg [facility]#[address]-26 Reviewed 01/01/2012 12:00 AM AIRWAY INHALATION TREATMENT Reviewed 01/01/2012 12:00 AM Rocephin 1 gm [facility]#[address]-03 Reviewed 01/16/2012 12:00 AM DRAIN/INJ JOINT/BURSA W/O US Reviewed 01/16/2012 12:00 AM Kenalog per 10Mg [facility]#[address]-19(Srinath) Reviewed 09/26/2016 12:00 AM CHEST X-RAY 2VW [...] AM SYNVISC, Per 1 Mg (2ml) [facility] [address]-21 Reviewed 06/05/2012 12:00 AM DRAIN/INJ JOINT/BURSA W/O US Reviewed 06/05/2012 12:00 AM SYNVISC, Per 1 Mg (2ml) [facility] [address]-56 Reviewed 06/12/2012 12:00 AM DRAIN/INJ JOINT/BURSA W/O US Reviewed 06/12/2012 12:00 AM SYNVISC, Per 1 Mg (2ml) [facility] [address]-08 Reviewed 06/06/2017 12:00 AM Decadron 4mg Injection Reviewed 06/06/2017 12:00 AM Depo-Medrol 40mg Injection Reviewed 06/06/2017 12:[address] ABD & PELV 1/> REGNS Reviewed 07/16/2012 12:00 AM Hepatobiliary ductal system imaging with functional assessment Reviewed 07/16/2012 12:00 AM Decadron 8 mg [facility]#[id number] Reviewed 07/16/2012 12:00 AM Depo-Medrol 80mg [facility]#[id number] Reviewed 07/16/2012 12:00 AM COMPREHEN METABOLIC PANEL Reviewed 07/16/2012 12:00 AM LIPID PANEL Reviewed 07/16/2012 12:00 AM Flu Injection 3 Years And Above [facility]# [address]-26 RHC Reviewed 08/19/2012 12:00 AM METABOLIC PANEL TOTAL CA Reviewed 12/21/2009 12:[address] ABDOMEN W/O & W/DYE Reviewed 10/22/2017 12:00 AM Decadron 4mg Injection Reviewed 10/22/2017 12:00 AM Depo-Medrol 40mg Injection Reviewed 10/02/2012 12:00 AM CHEST X-RAY 2VW FRONTAL&LATL Reviewed 10/09/2012 12:00 AM Decadron 8 mg [facility]#[id number] Reviewed 10/09/2012 12:00 AM Depo-Medrol 80mg [facility]#[id number] Reviewed 12/09/2012 12:00 AM CHEST X-RAY 2VW [...] AM SYNVISC-ONE, Per 1 Mg (6ml) [facility] [address]-18 Reviewed 02/26/2013 12:00 AM Physical Therapy Reviewed 02/26/2013 12:[address] NECK SPINE W/O & W/DYE Reviewed 04/07/2013 12:00 AM INJECT TRIGGER POINTS 3/> Reviewed 04/07/2013 12:00 AM Kenalog per 10Mg [facility]#[address]-59(Srinath) Reviewed 07/21/2013 12:00 AM CHEST X-RAY 2VW FRONTAL&LATL Reviewed 07/21/2013 12:00 AM Decadron 8 mg [facility]# [address]-41 Reviewed 07/21/2013 12:00 AM Depo-Medrol 80 mg [facility]#[address]-84 Reviewed 07/21/2013 12:00 AM Rocephin 500 mg [facility]#0310-1129-68 Reviewed 09/22/2013 12:00 AM CHEST X-RAY 2VW FRONTAL&LATL Reviewed 10/29/2013 12:00 AM X-RAY EXAM OF ABDOMEN Reviewed 12/08/2013 12:00 AM THER/PROPH/DIAG INJ SC/IM Reviewed 12/08/2013 12:00 AM Decadron, Per 1 Mg [facility]# [address]-14 Reviewed 12/08/2013 12:00 AM Depo-Medrol, Per 80 Mg [facility]#0150-9103-23 Reviewed 12/08/2013 12:00 AM CHEST X-RAY 2VW [...] Reviewed 01/05/2014 12:00 AM Decadron 8 mg [facility]# [address]-38 Reviewed 01/05/2014 12:00 AM Depo-Medrol 80 mg [facility]#[address]-59 Reviewed 01/05/2014 12:00 AM Rocephin 1 gram [facility]#1329-6507-63 Reviewed 03/15/2010 12:00 AM PROTHROMBIN TIME Reviewed [...] Reviewed 09/28/2010 12:00 AM Kenalog per 10Mg [facility]#[address]-46(Srinath) Reviewed 05/05/2014 12:00 AM DRAIN/INJ JOINT/BURSA W/O US Reviewed 05/05/2014 12:00 AM SYNVISC-ONE, Per 1 Mg (6ml) [facility] [address]-28 Reviewed 05/06/2014 12:00 AM COMPREHEN METABOLIC PANEL [...] 11/07/2010 12:00 AM Rocephin 500 mg [facility]#[address]-40 Reviewed 07/14/2014 12:00 AM Fluzone MEDICARE Only Reviewed 11/29/2010 12:00 AM INJECT TRIGGER POINTS 3/> Reviewed 11/29/2010 12:00 AM Kenalog per 10Mg [facility]#[address]-34(Srinath) Reviewed 07/14/2014 12:00 AM Decadron injection Reviewed [...] Vis Pub CVX Pneumococcal 07/09/2016 Emily DOHERTY Prevshaw 13 [id number] Intramuscular Right Deltoid 07/09/2016 07/28/2015 133 History [...] 2:04PM Lumbar Radiculitis Feb 2014 2:04PM Cervicalgia Feb 2014 2:04PM Muscle Spasm b 2014 2:04PM [...] Bilateral Hand dermatitis Nov 07 2017 8:22AM Payers Insurance Name Company Name Plan Name Plan Number Policy Number Policy Group Number Start Date Medicare RHC Medicare RHC [id number] N/A [employer] [place] State Plan [facility] [id number] N/A [place] [employer] Medicare [place] [employer] Ins [phone] N/A [place] Medical Assistance [facility] Medical Assistance Prog [id number] N/A Medicare Part B Medicare Of [place] [id number] Friday, 2008 Medicare Part A Medicare Part A [id number] N/A [facility] - RHC - [facility] Plan [facility] RHC Comm [id number] Wednesday, 2015 [employer] - [place] - [place] State [facility] [employer] - [place]HC [place] State Plan [id number] Wednesday, 2015 Medicare Part A Medicare - Lab/Xray [id number] N/A History of Encounters Visit Date Visit Type Provider 11/07/2017 Office visit Melecio Wilkinson DO 10/22/2017 Office visit Melecio Wilkinson DO 08/27/2017 [...] visit Melecio Jaja DO 01/01/2017 Hospital Seth Palafoxzion DO 12/31/2016 Hospital Rasta Mckeon MD 12/31/2016 [...] DO 01/12/2015 Office visit Katty CRAIG 12/16/2014 [facility] Alfa Platt MD 12/14/2014 Voided Melecio Jaja DO 12/08/2014 Office visit Alfa Platt MD 12/08/2014 Office visit Melecio Jaja DO 12/07/2014 Nurse visit Riri Salazar MD 12/02/2014 [facility] Alfa Platt MD 12/02/2014 [facility] Magi Powers MD 11/29/2014 [facility] Magi Powers MD 11/29/2014 Voided Katty CRAIG 11/11/2014 Office visit 11/11/2014 Office visit Katty RCAIG 11/11/2014 Office visit Melecio Jaja DO 10/14/2014 Office visit Katty CRAIG 09/14/2014 Office visit Katty CRAIG 09/08/2014 [facility] Ama Barrios MD 09/07/2014 Office visit Melecio Jaja DO 08/16/2014 Nurse visit Katty CRAIG 07/19/2014 Office visit Katty M. Ronny SECONDARY EDUCATION PROFESSOR 07/14/2014 Office visit Melecio Jaja DO 06/21/2014 Office visit Katty M. Ronny SECONDARY EDUCATION PROFESSOR 05/20/2014 Office visit Melecio Jaja DO 05/14/2014 Office visit Melecio Jaja DO 05/05/2014 Office visit Katty M. Ronny SECONDARY EDUCATION PROFESSOR 04/26/2014 Office visit Katty Jefferson SECONDARY EDUCATION PROFESSOR 03/24/2014 Office visit Katty Jefferson SECONDARY EDUCATION PROFESSOR 02/24/2014 Office visit Katty Jefferson SECONDARY EDUCATION PROFESSOR 01/05/2014 Office visit Melecio Willhite DO 12/23/2013 Office visit Katty MN[place] Jefferson SECONDARY EDUCATION PROFESSOR 12/23/2013 Office visit Melecio Jaja DO 12/18/2013 Office visit Janis Landon SENIOR PROJECT LEADER/TEAM LEAD 12/08/2013 Office visit Janis Landon SENIOR PROJECT LEADER/TEAM LEAD 11/25/2013 Office visit Katty Jefferson SECONDARY EDUCATION PROFESSOR 10/29/2013 Office visit Melecio Wilkinson DO 09/22/2013 Office visit Janis Navarrete SENIOR PROJECT LEADER/TEAM LEAD 07/28/2013 Office visit Katty DURÁNP 07/21/2013 Office visit Melecio Jaja DO 07/08/2013 Office visit Katty DURÁNP 05/06/2013 Office visit Melecio Wilkinson DO 04/07/2013 Office visit Gorge Yo MD 02/26/2013 Office visit Melecio Wilkinson DO 01/29/2013 Office visit Gorge Yo MD 01/06/2013 Office visit Gorge Yo MD 12/09/2012 [facility] Ama Barrios MD 12/09/2012 Office visit Stephanie Richardson SENIOR PROJECT LEADER/TEAM LEAD 11/26/2012 Office visit Gorge Yo MD 10/30/2012 [facility] Gorge Yo MD 10/29/2012 Office visit [...] 05/14/2012 Office visit Gorge Yo MD 05/12/2012 [facility] DO 05/11/2012 [facility] DO 03/13/2012 Office visit Gorge Yo [...] 03/05/2011 Office visit Melecio Wilkinson DO 02/06/2011 [facility] Gorge Yo MD 01/08/2011 Office visit Melecio Wilkinson DO 12/27/2010 Office visit Gorge Yo MD 11/29/2010 Office visit Gorge Yo MD 11/07/2010 Office visit Melecio Wilkinson DO 09/28/2010 Office visit Gorge Yo MD 09/05/2010 [facility] Gorge Yo MD 08/28/2010 Office visit Gorge Yo MD 08/07/2010 Office visit Janis Navarrete APRN 07/25/2010 Office visit Melecio Wilkinson DO 06/27/2010 Office visit Gorge Yo MD 06/14/2010 Office visit Melecio Wilkinson DO 06/06/2010 Laboratory Alfonso Camacho MD 06/01/2010 Office visit Melecio Wilkinson DO 04/17/2010 Office visit Melecio Wilkinson DO 04/06/2010 Office visit Gorge Yo MD 04/02/2010 [facility] Alfonso Camacho MD 03/31/2010 Laboratory Alfonso [...]
--- OUTSIDE RECORDS SUMMARY | 2018-01-22 11:38 | XMS REPORT ---
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 Name Role Phone Melecio Wilkinson PCP Unavailable [...] for 30 days Discontinued by Hospitalist at [place] Augmentin 875-125 mg oral tablet 11/07/2010 03/05/2011 [...] Active 12/02/14 Vital Signs Date Time BP-Sys(mm[Hg] BP-Jayiln(mm[Hg]) HR(bpm) RR(rpm) Temp WT HT HC BMI BSA BMI Percentile O2 Sat(%) 11/21/2015 10:33:00 AM 152 mmHg 98 mmHg [...] 07/11/2015 12:00 AM Kenalog, Per 10 Mg [facility]#9741-8380-88 Reviewed 06/19/2011 12:00 AM DRAIN/INJ JOINT/BURSA W/O US Reviewed 06/19/2011 12:00 AM Kenalog 40 Mg [facility]#8492-6012-34 Reviewed 08/25/2015 12:00 AM OFFICE/OUTPATIENT VISIT EST Reviewed 08/23/2015 12:00 AM Decadron, Per 1 Mg [facility]# [address]-09 Reviewed 08/23/2015 12:00 AM Depo-Medrol, Per 80 Mg [facility]#[address]-45 Reviewed 09/07/2015 12:00 AM X-RAY EXAM L-S [...] EXAM OF ABDOMEN Reviewed 11/21/2015 12:00 AM Physical Therapy Consultation Reviewed 10/12/2011 12:00 AM EXTREMITY STUDY Reviewed 01/01/2012 12:00 AM Rocephin 1 gm [facility]#[address]-84 Reviewed 01/16/2012 12:00 AM DRAIN/INJ JOINT/BURSA W/O US Reviewed 01/16/2012 12:00 AM Kenalog per 10Mg [facility]#[address]-82(Srinath) Reviewed 02/05/2012 12:[address] ABDOMEN W/O & W/DYE Reviewed 02/05/2012 12:[address] PELVIS W/O & W/DYE Reviewed 05/29/2012 12:00 AM DRAIN/INJ JOINT/BURSA W/O US Reviewed 05/29/2012 12:00 AM SYNVISC, Per 1 Mg (2ml) [facility] [address]-86 Reviewed 06/05/2012 12:00 AM DRAIN/INJ JOINT/BURSA W/O US Reviewed 06/05/2012 12:00 AM SYNVISC, Per 1 Mg (2ml) [facility] [address]-71 Reviewed 06/12/2012 12:00 AM DRAIN/INJ JOINT/BURSA W/O US Reviewed 06/12/2012 12:00 AM SYNVISC, Per 1 Mg (2ml) [facility] [address]-83 Reviewed 07/16/2012 12:00 AM Hepatobiliary ductal system imaging with functional assessment Reviewed 07/16/2012 12:00 AM Decadron 8 mg [facility]#21060392496 Reviewed 07/16/2012 12:00 AM Depo-Medrol 80mg [facility]#59814237251 Reviewed 07/16/2012 12:00 AM COMPREHEN METABOLIC PANEL Reviewed 07/16/2012 12:00 AM LIPID PANEL Reviewed 07/16/2012 12:00 AM Flu Injection 3 Years And Above [facility]# [address]-88 RHC Reviewed 08/19/2012 12:00 AM METABOLIC PANEL TOTAL CA Reviewed 12/21/2009 12:[address] ABDOMEN W/O & W/DYE Reviewed 10/02/2012 12:00 AM CHEST X-RAY 2VW FRONTAL&LATL Reviewed 10/09/2012 12:00 AM Decadron 8 mg [facility]#67991892292 Reviewed 10/09/2012 12:00 AM Depo-Medrol 80mg [facility]#36118566625 Reviewed 12/09/2012 12:00 AM CHEST X-RAY 2VW [...] 12:00 AM SYNVISC-ONE, Per 1 Mg (6ml) [facility] [address]-95 Reviewed 02/26/2013 12:[address] NECK SPINE W/O & W/DYE Reviewed 04/07/2013 12:00 AM INJECT TRIGGER POINTS 3/> Reviewed 04/07/2013 12:00 AM Kenalog per 10Mg [facility]#[address]-47(Srinath) Reviewed 07/21/2013 12:00 AM CHEST X-RAY 2VW FRONTAL&LATL Reviewed 07/21/2013 12:00 AM Decadron 8 mg [facility]# [address]-73 Reviewed 07/21/2013 12:00 AM Depo-Medrol 80 mg [facility]#[address]-70 Reviewed 07/21/2013 12:00 AM Rocephin 500 mg [facility]#8314-0754-72 Reviewed 09/22/2013 12:00 AM CHEST X-RAY 2VW FRONTAL&LATL Returned 10/29/2013 12:00 AM X-RAY EXAM OF ABDOMEN Reviewed 12/08/2013 12:00 AM THER/PROPH/DIAG INJ SC/IM Reviewed 12/08/2013 12:00 AM Decadron, Per 1 Mg [facility]# [address]-83 Reviewed 12/08/2013 12:00 AM Depo-Medrol, Per 80 Mg [facility]#3879-5787-13 Reviewed 12/08/2013 12:00 AM CHEST X-RAY 2VW [...] Returned 01/05/2014 12:00 AM Decadron 8 mg [facility]# [address]-08 Reviewed 01/05/2014 12:00 AM Depo-Medrol 80 mg [facility]#[address]-34 Reviewed 01/05/2014 12:00 AM Rocephin 1 gram [facility]#7925-6084-41 Reviewed 03/15/2010 12:00 AM PROTHROMBIN TIME Reviewed [...] Reviewed 09/28/2010 12:00 AM Kenalog per 10Mg [facility]#[address]-92(Srinath) Reviewed 05/05/2014 12:00 AM DRAIN/INJ JOINT/BURSA W/O US Reviewed 05/05/2014 12:00 AM SYNVISC-ONE, Per 1 Mg (6ml) [facility] [address]-45 Reviewed 05/06/2014 12:00 AM COMPREHEN METABOLIC PANEL [...] Reviewed 11/07/2010 12:00 AM Rocephin 500 mg [facility]#[address]-14 Reviewed 07/14/2014 12:00 AM Fluzone MEDICARE Only Reviewed 11/29/2010 12:00 AM INJECT TRIGGER POINTS 3/> Reviewed 11/29/2010 12:00 AM Kenalog per 10Mg [facility]#[address]-97(Srinath) Reviewed 07/14/2014 12:00 AM Decadron injection Reviewed [...] bronchitis, unspecified organism Nov 21 2015 10:39AM Payers Insurance Name Company Name Plan Name Plan Number Policy Number Policy Group Number Start Date Medicare Part A Medicare Part A [id number] N/A [employer] - [place] [employer] [place] [id number] Wednesday, 2015 [facility] - RHC - [facility] Plan [facility] RHC Comm [id number] Wednesday, 2015 [place] [employer] Medicare [facility] Life Ins [phone] N/A [place] Medical Assistance [facility] Medical Assistance Prog [id number] N/A Medicare Part B Medicare Of [place] [id number] Friday, 2008 History of Encounters Visit Date Visit Type Provider 11/21/2015 Office visit Melecio Wilkinson DO 10/17/2015 [...] Melecio Wilkinson DO 05/09/2015 Office visit Melecio Wilkinson DO 04/26/2015 Office visit Katty CRAIG 04/08/2015 Office visit Melecio Wilkinson DO 04/07/2015 Voided Melecio Wilkinson DO 03/29/2015 Office visit Katty CRAIG 03/28/2015 Office visit Melecio Wilkinson DO 03/15/2015 Office visit Katty CRAIG 02/28/2015 Office visit Melecio Cruzte DO 02/17/2015 Office visit Melecio Jaja DO 02/17/2015 Office visit Katty CRAIG 01/19/2015 Office visit Katty CRAIG 01/13/2015 Office visit Melecio Jaja DO 01/12/2015 Office visit Katty CRAIG 12/16/2014 Hospital Alfa Platt MD 12/14/2014 Voided Melecio Jaja DO 12/08/2014 Office visit Alfa Platt MD 12/08/2014 Office visit Melecio Jaja DO 12/07/2014 Nurse visit Riri Salazar MD 12/02/2014 Hospital Alfa Platt MD 12/02/2014 Hospital Magi Powers MD 11/29/2014 [facility] Magi Powers MD 11/29/2014 Voided [...] Wilkinson DO 09/22/2013 Office visit Janis Landon INVENTORY COORDINATOR 07/28/2013 Office visit Katty Jefferson KIARA 07/21/2013 Office visit Melecio Wilkinson DO 07/08/2013 Office visit Katty Palma Ronny CRAIG 05/06/2013 Office visit Melecio Wilkinson DO 04/07/2013 Office visit Gorge Yo MD 02/26/2013 Office visit Melecio Wilkinson DO 01/29/2013 Office visit Gorge Yo MD 01/06/2013 Office visit Gorge Yo MD 12/09/2012 [facility] Ama Barrios MD 12/09/2012 Office visit Stephanie Richardson INVENTORY COORDINATOR 11/26/2012 Office visit Gorge Yo MD 10/30/2012 [facility] Gorge Yo MD 10/29/2012 Office [...] 05/14/2012 Office visit Gorge Yo MD 05/12/2012 [facility] DO 05/11/2012 [facility] 03/13/2012 Office visit Gorge Yo MD 02/05/2012 [...] 09/28/2010 Office visit Gorge Yo MD 09/05/2010 [facility] Gorge Yo MD 08/28/2010 Office [...]
--- OUTSIDE RECORDS SUMMARY | 2018-01-22 11:42 | XMS REPORT ---
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 Name Role Phone Melecio Wilkinson PCP Unavailable [...] once daily at bedtime for 30 days MS Contin 60 mg oral tablet extended release 01/20/2016 02/19/2016 take 1 tablet by oral route every 12 hours for 30 days Symbicort 160-4.5 mcg/actuation inhalation [...] for 30 days Discontinued by Hospitalist at [place] Augmentin 875-125 mg oral tablet 11/07/2010 03/05/2011 [...] ( 10 mg) daily for 4 days gentamicin 0.3 % ophthalmic drops 12/13/2015 [...] HC BMI BSA BMI Percentile O2 Sat(%) 01/19/2016 9:41:00 AM 162 mmHg 70 mmHg [...] Kenalog, Per 10 Mg [facility]#3655-5485-70 Reviewed 06/19/2011 12:00 AM DRAIN/INJ JOINT/BURSA W/O US Reviewed 06/19/2011 12:00 AM Kenalog 40 Mg Im-[facility]#1492-3515-61 Reviewed 08/25/2015 12:00 AM OFFICE/OUTPATIENT VISIT EST Reviewed 08/23/2015 12:00 AM Decadron, Per 1 Mg [facility]# [address]-61 Reviewed 08/23/2015 12:00 AM Depo-Medrol, Per 80 Mg [facility]#[address]-02 Reviewed 09/07/2015 12:00 AM X-RAY EXAM L-S [...] AM Rocephin 1 gm [facility]#[address]-33 Reviewed 01/16/2012 12:00 AM DRAIN/INJ JOINT/BURSA W/O US Reviewed 01/16/2012 12:00 AM Kenalog per 10Mg [facility]#[address]-98(Srinath) Reviewed 02/05/2012 12:[address] ABDOMEN W/O & W/DYE Reviewed 02/05/2012 12:[address] PELVIS W/O & W/DYE Reviewed 05/29/2012 12:00 AM DRAIN/INJ JOINT/BURSA W/O US Reviewed 05/29/2012 12:00 AM SYNVISC, Per 1 Mg (2ml) [facility] [address]-13 Reviewed 06/05/2012 12:00 AM DRAIN/INJ JOINT/BURSA W/O US Reviewed 06/05/2012 12:00 AM SYNVISC, Per 1 Mg (2ml) [facility] [address]-65 Reviewed 06/12/2012 12:00 AM DRAIN/INJ JOINT/BURSA W/O US Reviewed 06/12/2012 12:00 AM SYNVISC, Per 1 Mg (2ml) [facility] [address]-29 Reviewed 07/16/2012 12:00 AM Hepatobiliary ductal system imaging with functional assessment Reviewed 07/16/2012 12:00 AM Decadron 8 mg [facility]#[id number] Reviewed 07/16/2012 12:00 AM Depo-Medrol 80mg [facility]#[id number] Reviewed 07/16/2012 12:00 AM COMPREHEN METABOLIC PANEL Reviewed 07/16/2012 12:00 AM LIPID PANEL Reviewed 07/16/2012 12:00 AM Flu Injection 3 Years And Above [facility]# [address]-94 RHC Reviewed 08/19/2012 12:00 AM METABOLIC PANEL TOTAL CA Reviewed 12/21/2009 12:[address] ABDOMEN W/O & W/DYE Reviewed 10/02/2012 12:00 AM CHEST X-RAY 2VW FRONTAL&LATL Reviewed 10/09/2012 12:00 AM Decadron 8 mg [facility]#[id number] Reviewed 10/09/2012 12:00 AM Depo-Medrol 80mg [facility]#[id number] Reviewed 12/09/2012 12:00 AM CHEST X-RAY 2VW [...] 1 Mg (6ml) [facility] [address]-00 Reviewed 02/26/2013 12:[address] NECK SPINE W/O & W/DYE Reviewed 04/07/2013 12:00 AM INJECT TRIGGER POINTS 3/> Reviewed 04/07/2013 12:00 AM Kenalog per 10Mg [facility]#[address]-75(Srinath) Reviewed 07/21/2013 12:00 AM CHEST X-RAY 2VW FRONTAL&LATL Reviewed 07/21/2013 12:00 AM Decadron 8 mg [facility]# [address]-16 Reviewed 07/21/2013 12:00 AM Depo-Medrol 80 mg [facility]#[address]-27 Reviewed 07/21/2013 12:00 AM Rocephin 500 mg [facility]#7230-2693-44 Reviewed 09/22/2013 12:00 AM CHEST X-RAY 2VW FRONTAL&LATL Returned 10/29/2013 12:00 AM X-RAY EXAM OF ABDOMEN Reviewed 12/08/2013 12:00 AM THER/PROPH/DIAG INJ SC/IM Reviewed 12/08/2013 12:00 AM Decadron, Per 1 Mg [facility]# [address]-15 Reviewed 12/08/2013 12:00 AM Depo-Medrol, Per 80 Mg [facility]#2076-3060-65 Reviewed 12/08/2013 12:00 AM CHEST X-RAY 2VW [...] Returned 01/05/2014 12:00 AM Decadron 8 mg [facility]# [address]-12 Reviewed 01/05/2014 12:00 AM Depo-Medrol 80 mg [facility]#[address]-30 Reviewed 01/05/2014 12:00 AM Rocephin 1 gram [facility]#9738-4155-00 Reviewed 03/15/2010 12:00 AM PROTHROMBIN TIME Reviewed [...] 09/28/2010 12:00 AM Kenalog per 10Mg [facility]#[address]-55(Srinath) Reviewed 05/05/2014 12:00 AM DRAIN/INJ JOINT/BURSA W/O US Reviewed 05/05/2014 12:00 AM SYNVISC-ONE, Per 1 Mg (6ml) [facility] [address]-54 Reviewed 05/06/2014 12:00 AM COMPREHEN METABOLIC PANEL [...] AM Rocephin 500 mg [facility]#[address]-13 Reviewed 07/14/2014 12:00 AM Fluzone MEDICARE Only Reviewed 11/29/2010 12:00 AM INJECT TRIGGER POINTS 3/> Reviewed 11/29/2010 12:00 AM Kenalog per 10Mg -[facility]#[address]-28(Srinath) Reviewed 07/14/2014 12:00 AM Decadron injection Reviewed [...] left shoulder pain Jan 19 2016 9:42AM Payers Insurance Name Company Name Plan Name Plan Number Policy Number Policy Group Number Start Date Medicare Part A Medicare RHC [id number] N/A [employer] - [place] [employer] [place] [id number] Wednesday, 2015 Medicare Part A Medicare - Lab/Xray [id number] N/A [place] [employer] Medicare [place] [employer] Ins [phone] N/[place] Pro[place] [id number] N/A Medicare Part B Medicare Of [place] [id number] Friday, February 22, 2008 Medicare Part A Medicare Part A [id number] N/A [facility] - RHC - Community Plan of [facility] RHC Comm [id number] Wednesday, September 23, 2015 History of Encounters Visit Date Visit Type Provider 01/19/2016 Office visit Melecio Wilkinson DO 12/20/2015 [...] visit Melecio Jaja DO 04/07/2015 Voided Melecio Cruzte DO 03/29/2015 Office visit Katty CRAIG 03/28/2015 Office visit Melecio Wilkinson DO 03/15/2015 Office visit Katty CRAIG 02/28/2015 Office visit Melecio Cruzte DO 02/17/2015 Office visit Melecio Jaja DO 02/17/2015 Office visit Katty CRAIG 01/19/2015 Office visit Katty CRAIG 01/13/2015 Office visit Melecio Jaja DO 01/12/2015 Office visit Katty CRAIG 12/16/2014 Hospital Alfa Platt MD 12/14/2014 Voided Melecio Jjaa DO 12/08/2014 Office visit Alfa Platt MD 12/08/2014 Office visit Melecio Jaja DO 12/07/2014 Nurse visit Riri Salazar MD 12/02/2014 Hospital Alfa Platt MD 12/02/2014 Hospital Magi Powers MD 11/29/2014 [facility] Magi Powers MD 11/29/2014 Voided [...] Wilkinson DO 09/22/2013 Office visit Janis Landon GREY GOODS MARKER 07/28/2013 Office visit Katty Jefferson KIARA 07/21/2013 Office visit Melecio Wilkinson DO 07/08/2013 Office visit Katty Palma Ronny CRAIG 05/06/2013 Office visit Melecio Wilkinson DO 04/07/2013 Office visit Gorge Yo MD 02/26/2013 Office visit Melecio Wilkinson DO 01/29/2013 Office visit Gorge Yo MD 01/06/2013 Office visit Gorge Yo MD 12/09/2012 [facility] Ama Barrios MD 12/09/2012 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 [place] DO 05/11/2012 [facility] 03/13/2012 Office visit Gorge Yo MD 02/05/2012 [...] 09/28/2010 Office visit Gorge Yo MD 09/05/2010 [facility] Gorge Yo MD 08/28/2010 Office [...]
--- OUTSIDE RECORDS SUMMARY | 2018-01-22 11:44 | XMS REPORT ---
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 Role Phone Melecio Wilkinson PCP [...] TIMES PER DAY FOR 30 DAYS digoxin oral tablet 125 mcg 11/20/2013 TAKE [...] TABLET BY MOUTH EVERY DAY *GEN IMDUR* Voltaren topical gel 1 % 09/14/2014 apply [...] 2 TIMES PER DAY FOR 30 DAYS hydralazine oral tablet 50 mg 12/23/2014 TAKE [...] 3 times per day for 30 days carvedilol oral tablet 12.5 mg 02/21/2015 TAKE 1 TABLET BY MOUTH TWO TIMES A DAY *GEN COREG* allopurinol oral tablet 300 mg 02/21/2015 TAKE 1 TABLET BY MOUTH ONCE DAILY isosorbide mononitrate oral tablet extended release 24 hr 30 mg 02/21/2015 TAKE 1 TABLET BY MOUTH EVERY DAY *GEN IMDUR* digoxin oral tablet 125 mcg 02/21/2015 TAKE 1 TABLET BY MOUTH EVERY DAY furosemide oral tablet 20 mg 02/24/2015 TAKE 2 TABELTS BY MOUTH TWICE DAILY FOR 3 DAYS THEN TAKE 1 TABLET DAILY Name Start Date Expiration Date SIG Comments [...] route every 12 hours for 7 days zolpidem Oral Tablet 10 mg 11/23/2014 02/21/2015 take 1 tablet (10 mg) by oral route once daily at bedtime for 30 days Cipro oral tablet 500 mg 01/13/2015 [...] changed to Jimmielreto by Dr. Yesenia Cuevas Topical Adhesive Patch, [...] for 30 days Discontinued by Hospitalist at [place] Augmentin Oral Tablet 875-125 mg 11/07/2010 03/05/2011 [...] route every 6 hours as needed clonidine oral tablet 0.2 mg 11/12/2013 02/17/2015 TAKE ONE TABLET BY MOUTH THREE TIMES DAILY NEEDED clonidine oral tablet 0.2 mg 11/12/2013 02/17/2015 TAKE ONE TABLET BY MOUTH THREE TIMES DAILY NEEDED already on list furosemide oral tablet 40 mg 11/20/2013 05/14/2014 [...] 1:41PM Lung cancer Feb 17 2015 1:41PM Payers Insurance Name Company Name Plan Name Plan Number Policy Number Policy Group Number Start Date Medicare Part A Medicare Part A [id number] N/A [employer] Medicare [employer] [phone] N/A [place] Medical Assistance [facility] Medical Assistance Pro [id number] N/A Medicare Part B Medicare Of [place] [id number] Friday, 2008 History of Encounters Visit Date Visit Type Provider 02/17/2015 Office visit Katty CRAIG 02/17/2015 Office visit Melecio Wilkinson DO 01/19/2015 Office visit Katty CRAIG 01/13/2015 Office visit Melecio Wilkinson DO 01/12/2015 Office visit Katty CRAIG 12/16/2014 [facility] Alfa Platt MD 12/14/2014 Voided Melecio Wilkinson DO 12/08/2014 Office visit Melecio Cruzte DO 12/08/2014 Office visit Alfa Platt MD 12/07/2014 Nurse visit Riri Salazar MD 12/02/2014 Hospital Alfa Platt MD 12/02/2014 [facility] Magi Powers MD 11/29/2014 Voided Katty CRAIG 11/29/2014 [facility] Magi Powers MD 11/11/2014 Office visit Melecio Jaja DO 11/11/2014 Office visit Katty CRAIG 10/14/2014 Office visit Katty CRAIG 09/14/2014 Office visit Katty CRAIG 09/08/2014 [facility] Ama Barrios MD 09/07/2014 [...] Melecio Jaja DO 12/23/2013 Office visit Melecio Wilkinson DO 12/23/2013 Office visit Katty CRAIG 12/18/2013 Office visit Janis Navarrete APRN 12/08/2013 [...] Gorge Yo MD 12/09/2012 Office visit Stephanie NNeville Richardson 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 12/09/2012 [facility] Ama Barrios MD 11/26/2012 Office visit Gorge Yo MD 10/30/2012 [facility] Gorge Yo MD 10/29/2012 [...] 05/14/2012 Office visit Gorge Yo MD 05/12/2012 [facility] DO 05/11/2012 [facility] 03/13/2012 Office visit Gorge Yo MD [...] 03/05/2011 Office visit Melecio Wilkinson DO 02/06/2011 [facility] Gorge Yo MD 01/08/2011 Office visit Melecio Wilkinson DO 12/27/2010 Office visit Gorge Yo MD 11/29/2010 Office visit Gorge Yo MD 11/07/2010 Office visit Melecio Wilkinson DO 09/28/2010 Office visit Gorge Yo MD 09/05/2010 [facility] Gorge Yo MD 08/28/2010 Office visit Gorge Yo MD 08/07/2010 Office visit Janis Navarrete JOLENE 07/25/2010 Office visit Melecio Wilkinson DO 06/27/2010 Office visit Gorge Yo MD 06/14/2010 Office visit Melecio Wilkinson DO 06/06/2010 Laboratory Alfonso Camacho MD 06/01/2010 Office visit Melecio Wilkinson DO 04/17/2010 Office visit Melecio Wilkinson DO 04/06/2010 Office visit Gorge Yo MD 04/02/2010 [facility] Alfonso Camacho MD 03/31/2010 Laboratory Alfonso Camacho MD 03/31/2010 Laboratory Alfonso Camacho MD 03/31/2010 [facility] Alfonso Camacho MD 03/21/2010 [...]
[2018-01-22] MEDS ORDERED: BACITRACIN 50000 UNITS/500 ML NS IR ONE ×2 (11:45)
--- OUTSIDE RECORDS SUMMARY | 2018-01-22 11:48 | XMS REPORT ---
Author Author Melecio Wilkinson [facility] Address [address] [place], [place] [id number] Care Team Providers [employer] Officer Name Role Phone Melecio Wilkinson PCP Melecio [...] TABLET BY MOUTH EVERY DAY *GEN IMDUR* clonidine HCl 0.2 mg oral tablet 06/07/2014 [...] 2 TIMES PER DAY FOR 30 DAYS cimetidine 200 mg oral tablet 03/02/2015 take [...] 6 hours as needed for 30 days lisinopril 20 mg oral tablet 08/17/2015 TAKE [...] MINUITES PRIOR TO MEALS AND AT BEDTIME loratadine 10 mg oral tablet 08/28/2016 TAKE [...] TABLET BY MOUTH THREE TIMES DAILY NEEDED ondansetron HCl 8 mg oral tablet 07/22/2017 [...] oral route q6h prn for 30 days digoxin 125 mcg oral tablet 01/13/2018 TAKE 1 TABLET BY MOUTH EVERY DAY Levaquin 500 mg oral tablet 01/17/2018 take 1 tablet (500 mg) by oral route once daily Name [...] CAPSULE BY MOUTH EVERY SIX HOURS NEEDED Augmentin 500-125 mg oral tablet 10/05/2013 10/12/2013 [...] per day after meals for 2 days methocarbamol 750 mg oral tablet 07/18/2017 01/14/2018 TAKE 1 TABLET BY MOUTH EVERY SIX HOURS NEEDED sucralfate 1 gram oral tablet 07/18/2017 01/14/2018 TAKE 1 TABLET BY MOUTH 30 MINUITES PRIOR TO MEALS AND AT BEDTIME digoxin 125 mcg oral tablet 07/18/2017 01/14/2018 TAKE 1 TABLET BY MOUTH EVERY DAY Symproic 0.2 mg oral tablet 11/14/2017 11/28/2017 [...] HC BMI BSA BMI Percentile O2 Sat(%) 01/17/2018 9:08:00 AM 152 mmHg 100 mmHg 71 bpm 18 rpm 98.7 F 239.125 lbs 67 in 37.4519 kg/m 2.2644 m 88 % 11/14/2017 3:38:00 PM 132 mmHg 80 mmHg [...] F 256 lbs 67 in 40.0949 kg/m 2.34 m2 97 % 11/21/2015 10:33:00 AM 152 mmHg 98 mmHg 86 bpm 22 rpm 97.3 F 259.5 lbs 67 in 40.64 kg/m2 2.3589 m 98 % 10/17/2015 2:38:00 PM 188 mmHg 102 mmHg 82 bpm 20 rpm 98.3 F 266 lbs 67 in 41.6611 kg/m 2.39 m2 93 % 09/26/2015 10:30:00 AM 136 mmHg 78 mmHg 80 bpm 18 rpm 98 F 265 lbs 67 in 41.50 kg/m2 2.3837 m 97 % 09/07/2015 8:30:00 AM 152 mmHg 96 mmHg 66 bpm 18 rpm 96.9 F 257.375 lbs 66 in 41.541 kg/m 2.33 m2 08/23/2015 9:51:00 AM 136 mmHg 76 mmHg 82 bpm 20 rpm 98.2 F 259 lbs 67 in 40.56 kg/m2 2.3566 m 98 % 08/08/2015 9:13:00 AM 140 mmHg 76 mmHg 78 bpm 20 rpm 98.1 F 259 lbs 67 in 40.5647 kg/m 2.36 m2 95 % 08/05/2015 8:58:00 AM 140 mmHg 82 mmHg 66 bpm 18 rpm 96.9 F 260 lbs 67 in 40.72 kg/m2 2.3611 m 07/11/2015 1:15:00 PM 144 mmHg 84 mmHg 71 bpm 20 rpm 96.6 F 263 lbs 67 in 41.1912 kg/m 2.37 m2 07/06/2015 2:39:00 PM 136 mmHg 84 mmHg 66 bpm 18 rpm 94.8 F 263 lbs 67 in 41.19 kg/m2 2.3747 m 06/27/2015 1:34:00 PM 98 mmHg 58 mmHg 80 bpm 22 rpm 98.3 F 263 lbs 67 in 41.1912 kg/m 2.37 m2 96 % 06/20/2015 2:12:00 PM 130 mmHg 76 mmHg 76 bpm 20 rpm 97.2 F 261.312 lbs 67 in 40.93 kg/m2 2.3671 m 97 % 06/15/2015 3:55:00 PM 130 mmHg 86 mmHg 72 bpm 18 rpm 97 F 268 lbs 67 in 41.9743 kg/m 2.40 m2 06/02/2015 10:51:00 AM 170 mmHg 100 mmHg 83 bpm 20 rpm 97.7 F 269.5 lbs 67 in 42.21 kg/m2 2.4039 m 97 % 05/16/2015 1:10:00 PM 162 mmHg 84 mmHg 70 bpm 18 rpm 97 F 272 lbs 67 in 42.6008 kg/m 2.42 m2 05/16/2015 9:29:00 AM 180 mmHg 88 mmHg 80 bpm 22 rpm 97.5 F 272 lbs 67 in 42.60 kg/m2 2.415 m 96 % 05/09/2015 9:39:00 AM 130 mmHg 72 mmHg 72 bpm 18 rpm 97.7 F 271.125 lbs 67 in 42.4637 kg/m 2.41 m2 04/26/2015 10:57:00 AM 148 mmHg 100 mmHg 82 bpm 18 rpm 97.8 F 275 lbs 67 in 43.07 kg/m2 2.4283 m 04/08/2015 8:01:00 AM 114 mmHg 88 mmHg 90 bpm 20 rpm 98.5 F 273 lbs 67 in 42.7574 kg/m 2.42 m2 98 % 03/29/2015 10:16:00 AM 142 mmHg 90 mmHg 66 bpm 20 rpm 96.7 F 273 lbs 67 in 42.76 kg/m2 2.4195 m 03/28/2015 9:31:00 AM 130 mmHg 72 mmHg 82 bpm 20 rpm 98.2 F 273 lbs 67 in 42.7574 kg/m 2.42 m2 99 % 03/15/2015 10:00:00 AM 100 mmHg 58 mmHg 80 bpm 18 rpm 97.4 F 273 lbs 67 in 42.76 kg/m2 2.4195 m 02/28/2015 4:15:00 PM 110 mmHg 76 mmHg 81 bpm 16 rpm 97 F 281.5 lbs 67 in 44.0887 kg/m 2.46 m2 96 % 02/17/2015 1:39:00 PM 142 mmHg 78 mmHg 84 bpm 18 rpm 98.3 F 284 lbs 67 in 44.48 kg/m2 2.4677 m 97 % 02/17/2015 1:03:00 PM 122 mmHg 74 mmHg 64 bpm 18 rpm 96.8 F 284 lbs 67 in 44.4802 kg/m 2.47 m2 01/19/2015 3:51:00 PM 128 mmHg 84 mmHg 76 bpm 20 rpm 96.4 F 286 lbs 70 in 41.04 kg/m2 2.5312 m 01/13/2015 1:38:00 PM 142 mmHg 82 mmHg 80 bpm 22 rpm 97.7 F 288 lbs 67 in 45.1067 kg/m 2.49 m2 01/12/2015 9:20:00 AM 136 mmHg 84 mmHg 71 bpm 18 rpm 96.5 F 290 lbs 67 in 45.42 kg/m2 2.4937 m 12/08/2014 11:00:00 AM 145 mmHg 90 mmHg 86 bpm 18 rpm 97.6 F 294.5 lbs 67 in 46.1247 kg/m 2.51 m2 94 % 12/08/2014 8:46:00 AM 156 mmHg 82 mmHg 80 bpm 20 rpm 98 F 294 lbs 67 in 46.05 kg/m2 2.5108 m 97 % 11/11/2014 1:59:00 PM 144 mmHg 80 mmHg 88 bpm 20 rpm 97.7 F 299 lbs 67 in 46.8295 kg/m 2.53 m2 11/11/2014 8:21:00 AM 188 mmHg 78 mmHg 87 bpm 22 rpm 97.9 F 300 lbs 67 in 46.99 kg/m2 2.5363 m 91 % 10/14/2014 1:59:00 PM 132 mmHg 72 mmHg 88 bpm 18 rpm 97.4 F 301 lbs 67 in 47.1428 kg/m 2.54 m2 09/14/2014 10:01:00 AM 124 mmHg 70 mmHg 100 bpm 22 rpm 97.4 F 309 lbs 67 in 48.40 kg/m2 2.574 m 09/07/2014 8:56:00 AM 142 mmHg 84 mmHg 94 bpm 22 rpm 98.3 F 307 lbs 67 in 48.0825 kg/m 2.57 m2 93 % 07/19/2014 10:24:00 AM 124 mmHg 80 mmHg 82 bpm 16 rpm 97.2 F 309 lbs 67 in 48.40 kg/m2 2.574 m 07/14/2014 9:28:00 AM 188 mmHg 78 mmHg 80 bpm 20 rpm 98.2 F 312 lbs 67 in 48.8656 kg/m 2.59 m2 96 % 06/21/2014 10:05:00 AM 144 mmHg 94 mmHg 82 bpm 16 rpm 95.7 F 309 lbs 67 in 48.40 kg/m2 2.574 m 05/20/2014 9:47:00 AM 130 mmHg 66 mmHg 80 bpm 20 rpm 98.2 F 313 lbs 67 in 49.0222 kg/m 2.59 m2 90 % 05/14/2014 9:31:00 AM 138 mmHg 68 mmHg 92 bpm 20 rpm 97.3 F 310 lbs 67 in 48.55 kg/m2 2.5782 m 93 % 04/26/2014 2:30:00 PM 162 mmHg 94 mmHg 78 bpm 22 rpm 98.1 F 314 lbs 67 in 49.1788 kg/m 2.59 m2 03/24/2014 2:11:00 PM 140 mmHg 80 mmHg 84 bpm 16 rpm 97.5 F 311 lbs 67 in 48.71 kg/m2 2.5824 m 02/24/2014 1:07:00 PM 108 mmHg 70 mmHg 84 bpm 16 rpm 95 F 309.375 lbs 67 in 48.4545 kg/m 2.58 m2 01/05/2014 1:43:00 PM 166 mmHg 80 mmHg 86 bpm 26 rpm 97.8 F 308 lbs 67 in 48.24 kg/m2 2.5699 m 94 % 12/23/2013 11:21:00 AM 122 mmHg 80 mmHg 96 bpm 22 rpm 98.1 F 304 lbs 67 in 47.6126 kg/m 2.55 m2 97 % 12/23/2013 10:05:00 AM 118 mmHg 80 mmHg 72 bpm 16 rpm 96.5 F 305.375 lbs 67 in 47.83 kg/m2 2.5589 m 12/18/2013 9:53:00 AM 100 mmHg 80 mmHg 91 bpm 22 rpm 97.4 F 306 lbs 67 in 47.9259 kg/m 2.56 m2 97 % 12/08/2013 3:32:00 PM 126 mmHg 64 mmHg 88 bpm 18 rpm 98.7 F 310.5 lbs 67 in 48.63 kg/m2 2.5803 m 97 % 11/25/2013 8:49:00 AM 124 mmHg 90 mmHg 82 bpm 16 rpm 97.8 F 313.375 lbs 67 in 49.081 kg/m 2.59 m2 10/29/2013 9:06:00 AM 136 mmHg 80 mmHg 80 bpm 22 rpm 98.2 F 313 lbs 67 in 49.02 kg/m2 2.5907 m 100 % 09/22/2013 9:19:00 AM 122 mmHg 80 mmHg 84 bpm 24 rpm 97.9 F 313 lbs 64 in 53.7258 kg/m 2.53 m2 97 % 07/28/2013 9:05:00 AM 108 mmHg 80 mmHg 66 bpm 14 rpm 97.4 F 314 lbs 67 in 49.18 kg/m2 2.5948 m 07/21/2013 9:47:00 AM 136 mmHg 70 mmHg 84 bpm 20 rpm 98.1 F 311 lbs 67 in 48.709 kg/m 2.58 m2 98 % 07/08/2013 8:43:00 AM 124 mmHg 82 mmHg 72 bpm 16 rpm 95.8 F 313 lbs 67 in 49.02 kg/m2 2.5907 m 05/06/2013 9:40:00 AM 138 mmHg 78 mmHg 70 bpm 16 rpm 98 F 318 lbs 67 in 49.8053 kg/m 2.61 m2 04/07/2013 9:44:00 AM 140 mmHg 82 mmHg 84 bpm 16 rpm 95.4 F 325 lbs 67 in 50.90 kg/m2 2.6398 m 02/26/2013 8:50:00 AM 150 mmHg 88 mmHg 78 bpm 18 rpm 98 F 314 lbs 67 in 49.1788 kg/m 2.59 m2 01/06/2013 9:14:00 AM 112 mmHg 78 mmHg 84 bpm 18 rpm 97.3 F 314.375 lbs 67 in 49.24 kg/m2 2.5963 m 12/09/2012 10:20:00 AM 102 mmHg 68 mmHg 86 bpm 18 rpm 97.5 F 311.375 lbs 97 % 11/26/2012 9:48:00 AM 112 mmHg 90 mmHg 84 bpm 18 rpm 98.3 F 308.5 lbs 67 in 48.32 kg/m2 2.572 m 10/29/2012 8:43:00 AM 134 mmHg 88 mmHg 88 bpm 18 rpm 97.8 F 313.5 lbs 67 in 49.1005 kg/m 2.59 m2 10/09/2012 9:33:00 AM 110 mmHg 60 mmHg 88 bpm 20 rpm 97.4 F 310 lbs 67 in 48.55 kg/m2 2.5782 m 96 % 08/19/2012 8:09:00 AM 144 mmHg 68 mmHg 70 bpm 18 rpm 98 F 306 lbs 67 in 47.9259 kg/m 2.56 m2 08/04/2012 9:26:00 AM 142 mmHg 80 mmHg 84 bpm 20 rpm 97.1 F 301 lbs 67 in 47.14 kg/m2 2.5405 m 98 % 07/24/2012 10:11:00 AM 118 mmHg 72 mmHg 66 bpm 16 rpm 96.9 F 303 lbs 67 in 47.456 kg/m 2.55 m2 07/16/2012 8:08:00 AM 140 mmHg 72 mmHg 70 bpm 18 rpm 97.4 F 299 lbs 67 in 46.83 kg/m2 2.5321 m 05/19/2012 10:08:00 AM 144 mmHg 76 mmHg 78 bpm 22 rpm 98 F 303 lbs 67 in 47.456 kg/m 2.55 m2 98 % 05/14/2012 10:12:00 AM 122 mmHg 90 mmHg 78 bpm 16 rpm 97.2 F 303 lbs 67 in 47.46 kg/m2 2.5489 m 03/13/2012 1:17:00 PM 132 mmHg 84 mmHg 80 bpm 16 rpm 96.1 F 304.375 lbs 67 in 47.6714 kg/m 2.55 m2 02/05/2012 9:20:00 AM 140 mmHg 70 mmHg 78 bpm 22 rpm 97.9 F 303 lbs 67 in 47.46 kg/m2 2.5489 m 01/31/2012 4:01:00 PM 142 mmHg 80 mmHg 74 bpm 16 rpm 97 F 301 lbs 67 in 47.1428 kg/m 2.54 m2 01/16/2012 1:48:00 PM 164 mmHg 96 mmHg 84 bpm 16 rpm 95.8 F 303 lbs 67 in 47.46 kg/m2 2.5489 m 01/01/2012 9:03:00 AM 178 mmHg 88 mmHg 80 bpm 20 rpm 98.2 F 312 lbs 67 in 48.8656 kg/m 2.59 m2 11/16/2011 8:06:00 AM 110 mmHg 70 mmHg 80 bpm 16 rpm 95.9 F 302.5 lbs 67 in 47.38 kg/m2 2.5468 m 10/05/2011 8:16:00 AM 124 mmHg 80 mmHg 82 bpm 16 rpm 95.9 F 307 lbs 67 in 48.0825 kg/m 2.57 m2 10/01/2011 10:50:00 AM 142 mmHg 80 mmHg 76 bpm 18 rpm 97.7 F 306.5 lbs 67 in 48.00 kg/m2 2.5636 m 09/06/2011 8:08:00 AM 122 mmHg 82 mmHg 88 bpm 16 rpm 97.1 F 305 lbs 67 in 47.7693 kg/m 2.56 m2 07/26/2011 10:03:00 AM 134 mmHg 76 mmHg 78 bpm 18 rpm 98.2 F 295 lbs 67 in 46.20 kg/m2 2.5151 m 06/19/2011 3:51:00 PM 142 mmHg [...] 07/11/2015 12:00 AM Kenalog, Per 10 Mg [facility]#5446-1251-47 Reviewed 12/07/2014 12:00 AM OFFICE/OUTPATIENT VISIT EST Reviewed 06/19/2011 12:00 AM DRAIN/INJ JOINT/BURSA W/O US Reviewed 06/19/2011 12:00 AM Kenalog 40 Mg [facility]#0483-2789-13 Reviewed 08/25/2015 12:00 AM OFFICE/OUTPATIENT VISIT EST Reviewed 08/23/2015 12:00 AM Decadron, Per 1 Mg [facility]# [address]-69 Reviewed 08/23/2015 12:00 AM Depo-Medrol, Per 80 Mg [facility]#[address]-84 Reviewed 09/07/2015 12:00 AM X-RAY EXAM L-S [...] 10/23/2015 12:00 AM Decadron, Per 1 Mg [facility]# [address]-48 Reviewed 10/23/2015 12:00 AM Depo-Medrol, Per 80 Mg [facility]#[address]-40 Reviewed 07/26/2011 12:00 AM X-RAY EXAM OF ABDOMEN Reviewed 11/21/2015 12:00 AM Orthopedics Consultation Reviewed 11/21/2015 12:00 AM Physical Therapy Consultation Reviewed 12/20/2015 12:00 AM EXTREMITY STUDY Reviewed 10/12/2011 12:00 AM EXTREMITY STUDY Reviewed 05/10/2016 12:00 AM CONTRAST X-RAY OF SHOULDER Reviewed 07/09/2016 12:00 AM PNEUMOCOCCAL VACC 13 RIP IM Reviewed 08/08/2016 12:00 AM Decadron, Per 1 Mg [facility]# [address]-52 Reviewed 08/08/2016 12:00 AM Depo-Medrol, Per 80 Mg [facility]#[address]-30 Reviewed 01/01/2012 12:00 AM AIRWAY INHALATION TREATMENT Reviewed 01/01/2012 12:00 AM Rocephin 1 gm [facility]#[address]-08 Reviewed 01/16/2012 12:00 AM DRAIN/INJ JOINT/BURSA W/O US Reviewed 01/16/2012 12:00 AM Kenalog per 10Mg [facility]#[address]-41(Srinath) Reviewed 09/26/2016 12:00 AM CHEST X-RAY 2VW [...] 12:00 AM SYNVISC, Per 1 Mg (2ml) [facility] [address]-13 Reviewed 06/05/2012 12:00 AM DRAIN/INJ JOINT/BURSA W/O US Reviewed 06/05/2012 12:00 AM SYNVISC, Per 1 Mg (2ml) [facility] [address]-84 Reviewed 06/12/2012 12:00 AM DRAIN/INJ JOINT/BURSA W/O US Reviewed 06/12/2012 12:00 AM SYNVISC, Per 1 Mg (2ml) [facility] [address]-01 Reviewed 06/06/2017 12:00 AM Decadron 4mg Injection Reviewed 06/06/2017 12:00 AM Depo-Medrol 40mg Injection Reviewed 06/06/2017 12:[address] ABD & PELV 1/> REGNS Reviewed 07/16/2012 12:00 AM Hepatobiliary ductal system imaging with functional assessment Reviewed 07/16/2012 12:00 AM Decadron 8 mg [facility]#[id number] Reviewed 07/16/2012 12:00 AM Depo-Medrol 80mg [facility]#[id number] Reviewed 07/16/2012 12:00 AM COMPREHEN METABOLIC PANEL Reviewed 07/16/2012 12:00 AM LIPID PANEL Reviewed 07/16/2012 12:00 AM Flu Injection 3 Years And Above [facility]# [address]-89 RHC Reviewed 08/19/2012 12:00 AM METABOLIC PANEL TOTAL CA Reviewed 12/21/2009 12:[address] ABDOMEN W/O & W/DYE Reviewed 10/22/2017 12:00 AM Decadron 4mg Injection Reviewed 10/22/2017 12:00 AM Depo-Medrol 40mg Injection Reviewed 10/02/2012 12:00 AM CHEST X-RAY 2VW FRONTAL&LATL Reviewed 10/09/2012 12:00 AM Decadron 8 mg [facility]#[id number] Reviewed 10/09/2012 12:00 AM Depo-Medrol 80mg [facility]#[id number] Reviewed 01/17/2018 9:19 AM URINALYSIS AUTO W/O SCOPE Reviewed 12/09/2012 12:00 AM CHEST X-RAY 2VW [...] 12:00 AM SYNVISC-ONE, Per 1 Mg (6ml) [facility] [address]-91 Reviewed 02/26/2013 12:00 AM Physical Therapy Reviewed 02/26/2013 12:[address] NECK SPINE W/O & W/DYE Reviewed 04/07/2013 12:00 AM INJECT TRIGGER POINTS 3/> Reviewed 04/07/2013 12:00 AM Kenalog per 10Mg [facility]#[address]-02(Srinath) Reviewed 07/21/2013 12:00 AM CHEST X-RAY 2VW FRONTAL&LATL Reviewed 07/21/2013 12:00 AM Decadron 8 mg [facility]# [address]-67 Reviewed 07/21/2013 12:00 AM Depo-Medrol 80 mg [facility]#[address]-99 Reviewed 07/21/2013 12:00 AM Rocephin 500 mg [facility]#3011-5729-96 Reviewed 09/22/2013 12:00 AM CHEST X-RAY 2VW FRONTAL&LATL Reviewed 10/29/2013 12:00 AM X-RAY EXAM OF ABDOMEN Reviewed 12/08/2013 12:00 AM THER/PROPH/DIAG INJ SC/IM Reviewed 12/08/2013 12:00 AM Decadron, Per 1 Mg [facility]# [address]-08 Reviewed 12/08/2013 12:00 AM Depo-Medrol, Per 80 Mg [facility]#2213-4007-32 Reviewed 12/08/2013 12:00 AM CHEST X-RAY 2VW [...] Reviewed 01/05/2014 12:00 AM Decadron 8 mg [facility]# [address]-75 Reviewed 01/05/2014 12:00 AM Depo-Medrol 80 mg [facility]#[address]-91 Reviewed 01/05/2014 12:00 AM Rocephin 1 gram [facility]#3642-7754-05 Reviewed 03/15/2010 12:00 AM PROTHROMBIN TIME Reviewed [...] Reviewed 09/28/2010 12:00 AM Kenalog per 10Mg [facility]#[address]-89(Srinath) Reviewed 05/05/2014 12:00 AM DRAIN/INJ JOINT/BURSA W/O US Reviewed 05/05/2014 12:00 AM SYNVISC-ONE, Per 1 Mg (6ml) [facility] [address]-56 Reviewed 05/06/2014 12:00 AM COMPREHEN METABOLIC PANEL [...] Reviewed 11/07/2010 12:00 AM Rocephin 500 mg [facility]#[address]-71 Reviewed 07/14/2014 12:00 AM Fluzone MEDICARE Only Reviewed 11/29/2010 12:00 AM INJECT TRIGGER POINTS 3/> Reviewed 11/29/2010 12:00 AM Kenalog per 10Mg [facility]#[address]-26(Srinath) Reviewed 07/14/2014 12:00 AM Decadron injection Reviewed [...] AA 63 eGFR 52 eGFR AA* >60 01/17/2018 9:19 AM Clarity Ur clear Urine-Color brown Glucose Ur-sCnc neg Bilirub Ur Ql small Ketones Ur Ql Strip trace Sp Gr Ur Qn 1.010 Hgb Ur Ql Strip neg pH Ur-LsCnc 5.5 Prot Ur Ql Strip 30 Urobilinogen Ur-mCnc 1.0 Nitrite Ur Ql Strip neg WBC # Ur neg History Of Immunizations Name Date Admin Mfg Name Mfg Code Trade Name Lot# Route Inj Vis Given Vis Pub CVX Pneumococcal 07/09/2016 Rudy-Bran [employer] PREVNAR 13 [id number] Intramuscular Right Deltoid 07/09/2016 07/28/2015 133 History [...] degenerative disc disease Fe2014 2:04PM Lumbar Radiculitis Fe2014 2:04PM Cervicalgia Nov 11 2014 2:04PM Muscle Spasm Nov 11 2014 2:04PM Pain in joint; Knee,right Nov 11 2014 2:04PM Cervical radiculopathy Feb 2014 2:04PM Myofascial pain Nov 11 2014 [...] 3:40PM Hand dermatitis Nov 14 2017 3:40PM Dysuria Jan 17 2018 9:09AM 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, right Jan 17 2018 9:09AM Payers Insurance Name Company Name Plan Name Plan Number Policy Number Policy Group Number Start Date Medicare RHC Medicare RHC [id number] N/A [employer] [place] [employer] [place] [id number] N/A [employer] [place] [employer] [place] [employer] Ins [phone] N/A [place] Medical Assistance [facility] Medical Assistance Prog [id number] N/A Medicare Part B Medicare Of [place] [id number] Friday, 2008 Medicare Part A Medicare Part A [id number] N/A [facility] - RHC - Community Plan of [facility] RHC Comm [id number] Wednesday, 2015 [employer] - RHC - [place] [employer] - [place] [id number] Wednesday, 2015 Medicare Part A Medicare - Lab/Xray [id number] N/A History of Encounters Visit Date Visit Type Provider 01/17/2018 Office visit Melecio Wilkinson DO 11/14/2017 Office visit Melecio Wilkinson DO 11/07/2017 Office visit Melecio Wilkinson DO 10/22/2017 Office visit Melecio Wilkinson DO 08/27/2017 Office visit Melecio Wilkinson DO 07/22/2017 Office visit Melecio Wilkinson DO 06/06/2017 Office visit Melecio Wilkinson DO 04/03/2017 Office visit Melecio Wilkinson DO 04/01/2017 [facility] Ama Barrios MD 03/28/2017 Office visit Melecio Wilkinson DO 03/11/2017 Office visit Melecio Wilkinson DO 03/05/2017 [facility] Ama Barrios MD 02/22/2017 Office visit Melecio Wilkinson DO 02/05/2017 Office visit Melecio Wilkinson DO 2017 [facility] Rasta Mckeon MD 2017 [facility] Ama Barrios MD 01/09/2017 Office visit Melecio Wilkinson DO 01/01/2017 Hospital Seth Devlin DO 12/31/2016 [...] DO 01/12/2015 Office visit Katty CRAIG 12/16/2014 [facility] Alfa Platt MD 12/14/2014 Voided Melecio Cruzte DO 12/08/2014 Office visit Alfa Platt MD 12/08/2014 Office visit Melecio Wilkinson DO 12/07/2014 Nurse visit Riri Salazar MD 12/02/2014 [facility] Alfa Platt MD 12/02/2014 [facility] Void[facility] Katty CRAIG 11/11/2014 Office visit 11/11/2014 Office visit Katty CRAIG 11/11/2014 Office visit Melecio Cruzte DO 10/14/2014 Office visit Katty CRAIG 09/14/2014 Office visit Katty CRAIG 09/08/2014 [facility] Ama Barrios MD 09/07/2014 Office visit Meleciorocio Cruzte DO 08/16/2014 Nurse visit Katty CRAIG 07/19/2014 Office visit Katty CRAIG 07/14/2014 Office visit Melecio Jaja DO 06/21/2014 Office visit Katty CRAIG 05/20/2014 Office visit Melecio Jaja DO 05/14/2014 Office visit Melecio Jaja DO 05/05/2014 Office visit Katty CRAIG 04/26/2014 Office visit Katty CRAIG 03/24/2014 Office visit Katty CRAIG 02/24/2014 Office visit [place] 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 01/05/2014 Office visit Melecio Jaja DO 12/23/2013 Office visit Katty Jefferson 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 12/23/2013 Office visit Melecio Jaja DO 12/18/2013 Office visit Janis Navarrete [employer] 12/08/2013 Office visit Janis Navarrete [employer] 11/25/2013 Office visit Katty Jefferson 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 10/29/2013 Office visit Melecio Wilkinson DO 09/22/2013 Office visit Janis Navarrete [employer] 07/28/2013 Office visit Katty[place] 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 07/21/2013 Office visit Melecio Wilkinson DO 07/08/2013 Office visit Katty [place] 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 05/06/2013 Office visit Melecio Wilkinson DO 04/07/2013 Office visit Gorge Yo MD 02/26/2013 Office visit Melecio Wilkinson DO 01/29/2013 Office visit Gorge Yo MD 01/06/2013 Office visit Gorge Yo MD 12/09/2012 [facility] Ama Barrios MD 12/09/2012 Office visit Stephanie Richardson [employer] 11/26/2012 Office visit Gorge Yo MD 10/30/2012 [facility] Gorge Yo MD 10/29/2012 Office [...] 05/14/2012 Office visit Gorge Yo MD 05/12/2012 [facility] DO 05/11/2012 [facility] DO 03/13/2012 Office visit Gorge Yo MD [...] 03/05/2011 Office visit Melecio Wilkinson DO 02/06/2011 [facility] Gorge Yo MD 01/08/2011 Office visit Melecio Wilkinson DO 12/27/2010 Office visit Gorge Yo MD 11/29/2010 Office visit Gorge Yo MD 11/07/2010 Office visit Melecio Wilkinson DO 09/28/2010 Office visit Gorge Yo MD 09/05/2010 [facility] Gorge Yo MD 08/28/2010 Office visit Gorge Yo MD 08/07/2010 Office visit Janis Navarrete APRN 07/25/2010 Office visit Melecio Wilkinson DO 06/27/2010 Office visit Gorge Yo MD 06/14/2010 Office visit Melecio Wilkinson DO 06/06/2010 Laboratory Alfonso Camacho MD 06/01/2010 Office visit Melecio Wilkinson DO 04/17/2010 Office visit Melecio Wilkinson DO 04/06/2010 Office visit Gorge Yo MD 04/02/2010 [facility] Alfonso Camacho MD 03/31/2010 Laboratory Alfonso Camacho MD 03/31/2010 Laboratory Alfonso Camacho MD 03/31/2010 [facility] Alfonso Camacho MD 03/21/2010 Procedures [...]
--- OUTSIDE RECORDS SUMMARY | 2018-01-22 11:53 | XMS REPORT ---
Author Author Melecio Wilkinson [facility] Address [address] [place], [place] [id number] Care Team Providers Care Brass Pourer Name Role Phone Melecio Wilkinson PCP Unavailable [...] 2 TIMES PER DAY MORNING AND EVENING zolpidem 10 mg oral tablet 02/25/2017 04/26/2017 take 1 tablet (10 mg) by oral route once daily at bedtime for 30 days carvedilol 25 mg oral tablet 03/21/2017 [...] daily at the same time each day Name Start Date Expiration Date SIG [...] days changed to Serene[place] by Dr. Yesenia Landersoderm 5 % topical [...] for 30 days Discontinued by Hospitalist at [place] niacin 500 mg oral tablet 10/10/2016 take [...] 12:00 AM Kenalog, Per 10 Mg [facility]#0707-3976-75 Reviewed 12/07/2014 12:00 AM OFFICE/OUTPATIENT VISIT EST Reviewed 06/19/2011 12:00 AM DRAIN/INJ JOINT/BURSA W/O US Reviewed 06/19/2011 12:00 AM Kenalog 40 Mg [facility]#9625-8292-43 Reviewed 08/25/2015 12:00 AM OFFICE/OUTPATIENT VISIT EST Reviewed 08/23/2015 12:00 AM Decadron, Per 1 Mg [facility]# [address]-99 Reviewed 08/23/2015 12:00 AM Depo-Medrol, Per 80 Mg [facility]#[address]-18 Reviewed 09/07/2015 12:00 AM X-RAY EXAM L-S [...] 12:00 AM Decadron, Per 1 Mg [facility]# [address]-63 Reviewed 10/23/2015 12:00 AM Depo-Medrol, Per 80 Mg [facility]#[address]-85 Reviewed 07/26/2011 12:00 AM X-RAY EXAM OF ABDOMEN Reviewed 11/21/2015 12:00 AM Orthopedics Consultation Reviewed 11/21/2015 12:00 AM Physical Therapy Consultation Reviewed 12/20/2015 12:00 AM EXTREMITY STUDY Reviewed 10/12/2011 12:00 AM EXTREMITY STUDY Reviewed 05/10/2016 12:00 AM CONTRAST X-RAY OF SHOULDER Reviewed 07/09/2016 12:00 AM PNEUMOCOCCAL VACC 13 RIP IM Reviewed 08/08/2016 12:00 AM Decadron, Per 1 Mg [facility]# [address]-79 Reviewed 08/08/2016 12:00 AM Depo-Medrol, Per 80 Mg [facility]#[address]-87 Reviewed 01/01/2012 12:00 AM AIRWAY INHALATION TREATMENT Reviewed 01/01/2012 12:00 AM Rocephin 1 gm [facility]#[address]-60 Reviewed 01/16/2012 12:00 AM DRAIN/INJ JOINT/BURSA W/O US Reviewed 01/16/2012 12:00 AM Kenalog per 10Mg [facility]#[address]-49(Srinath) Reviewed 09/26/2016 12:00 AM CHEST X-RAY 2VW [...] AM SYNVISC, Per 1 Mg (2ml) [facility] [address]-46 Reviewed 06/05/2012 12:00 AM DRAIN/INJ JOINT/BURSA W/O US Reviewed 06/05/2012 12:00 AM SYNVISC, Per 1 Mg (2ml) [facility] [address]-38 Reviewed 06/12/2012 12:00 AM DRAIN/INJ JOINT/BURSA W/O US Reviewed 06/12/2012 12:00 AM SYNVISC, Per 1 Mg (2ml) [facility] [address]-21 Reviewed 07/16/2012 12:00 AM Hepatobiliary ductal system imaging with functional assessment Reviewed 07/16/2012 12:00 AM Decadron 8 mg [facility]#16957239957 Reviewed 07/16/2012 12:00 AM Depo-Medrol 80mg [facility]#32443762269 Reviewed 07/16/2012 12:00 AM COMPREHEN METABOLIC PANEL Reviewed 07/16/2012 12:00 AM LIPID PANEL Reviewed 07/16/2012 12:00 AM Flu Injection 3 Years And Above [facility]# [address]-75 RHC Reviewed 08/19/2012 12:00 AM METABOLIC PANEL TOTAL CA Reviewed 12/21/2009 12:[address] ABDOMEN W/O & W/DYE Reviewed 10/02/2012 12:00 AM CHEST X-RAY 2VW FRONTAL&LATL Reviewed 10/09/2012 12:00 AM Decadron 8 mg [facility]#61204505473 Reviewed 10/09/2012 12:00 AM Depo-Medrol 80mg [facility]#72140945109 Reviewed 12/09/2012 12:00 AM CHEST X-RAY 2VW [...] AM SYNVISC-ONE, Per 1 Mg (6ml) [facility] [address]-23 Reviewed 02/26/2013 12:00 AM Physical Therapy Reviewed 02/26/2013 12:[address] NECK SPINE W/O & W/DYE Reviewed 04/07/2013 12:00 AM INJECT TRIGGER POINTS 3/> Reviewed 04/07/2013 12:00 AM Kenalog per 10Mg [facility]#[address]-55(Srinath) Reviewed 07/21/2013 12:00 AM CHEST X-RAY 2VW FRONTAL&LATL Reviewed 07/21/2013 12:00 AM Decadron 8 mg [facility]# [address]-02 Reviewed 07/21/2013 12:00 AM Depo-Medrol 80 mg [facility]#[address]-39 Reviewed 07/21/2013 12:00 AM Rocephin 500 mg [facility]#2871-4165-51 Reviewed 09/22/2013 12:00 AM CHEST X-RAY 2VW FRONTAL&LATL Reviewed 10/29/2013 12:00 AM X-RAY EXAM OF ABDOMEN Reviewed 12/08/2013 12:00 AM THER/PROPH/DIAG INJ SC/IM Reviewed 12/08/2013 12:00 AM Decadron, Per 1 Mg [facility]# [address]-26 Reviewed 12/08/2013 12:00 AM Depo-Medrol, Per 80 Mg [facility]#0417-2084-80 Reviewed 12/08/2013 12:00 AM CHEST X-RAY 2VW [...] 01/05/2014 12:00 AM Decadron 8 mg [facility]# [address]-73 Reviewed 01/05/2014 12:00 AM Depo-Medrol 80 mg [facility]#[address]-28 Reviewed 01/05/2014 12:00 AM Rocephin 1 gram [facility]#4491-7784-98 Reviewed 03/15/2010 12:00 AM PROTHROMBIN TIME Reviewed [...] Reviewed 09/28/2010 12:00 AM Kenalog per 10Mg [facility]#[address]-52(Srinath) Reviewed 05/05/2014 12:00 AM DRAIN/INJ JOINT/BURSA W/O US Reviewed 05/05/2014 12:00 AM SYNVISC-ONE, Per 1 Mg (6ml) [facility] [address]-79 Reviewed 05/06/2014 12:00 AM COMPREHEN METABOLIC PANEL [...] 11/07/2010 12:00 AM Rocephin 500 mg [facility]#[address]-90 Reviewed 07/14/2014 12:00 AM Fluzone MEDICARE Only Reviewed 11/29/2010 12:00 AM INJECT TRIGGER POINTS 3/> Reviewed 11/29/2010 12:00 AM Kenalog per 10Mg [facility]#[address]-63(Srinaht) Reviewed 07/14/2014 12:00 AM Decadron injection Reviewed [...] CVX Pneumococcal 07/09/2016 [facility] Prevnar 13 [id number] Intramuscular Right Deltoid 07/09/2016 07/28/2015 133 History [...] spondylosis Fe2014 2:04PM Lumbar degenerative disc disease Fe2014 2:04PM Lumbar Radiculitis b 2014 2:04PM Cervicalgia [...] Number Start Date Medicare RHC Medicare RHC [id number] N/A [employer] [place] State Plan [employer] [place] State Plan [id number] N/A [employer] Ins [phone] N/A [place] Medical Assistance [facility] Medical Assistance Prog [id number] N/A Medicare Part B Medicare Of [place] [id number] Friday, 2008 Medicare Part A Medicare Part A [id number] N/A [facility] - RHC - Community Plan [facility] RHC Comm [id number] Wednesday, 2015 [employer] - [place] - [place] [employer] [place] [id number] Wednesday, 2015 Medicare Part A Medicare - Lab/Xray [id number] N/A History of Encounters Visit Date Visit Type Provider 04/03/2017 Office visit Melecio Wilkinson DO 03/28/2017 Office visit Melecio Wilkinson DO 03/11/2017 Office visit Melecio Wilkinson DO 02/22/2017 Office visit Melecio Wilkinson DO 02/05/2017 Office visit Melecio Wilkinson DO 2017 Hospital Rasta Mckeon MD 2017 Hospital Ama Barrios MD 01/09/2017 Office visit Melecio Wilkinson DO 01/01/2017 [facility] Seth Devlin DO 12/31/2016 [facility] Rasta Mckeon MD 12/31/2016 [facility] Ama Barrios MD 12/21/2016 Office visit Melecio Wilkinson DO 11/20/2016 Office visit Melecio Wilkinson DO 11/05/2016 Office visit Melecio Wilkinson DO 10/23/2016 Office visit Melecio Wilkinson DO 10/10/2016 Office visit Melecio Wilkinson DO 09/26/2016 Office visit Melecio Wilkinson DO 08/28/2016 Office visit Melecio Wilkinson DO 08/08/2016 Office visit Melecio Wilkinson DO 07/09/2016 Office visit Melecio Cruzte DO 07/06/2016 Hospital Ama Barrios MD 07/06/2016 [...] Office visit Katty CRAIG 01/19/2015 Office visit Katyt CRAIG 01/13/2015 Office visit Meleico Jaja DO 01/12/2015 Office visit Katty CRAIG 12/16/2014 Hospital Alfa Platt MD 12/14/2014 Voided Melecio Wilkinson DO 12/08/2014 Office visit Alfa Platt MD 12/08/2014 Office visit Melecio Wilkinson DO 12/07/2014 Nurse visit Riri Salazar MD 12/02/2014 Hospital Alfa Platt MD 12/02/2014 [facility] Magi Powers MD 11/29/2014 [facility] Magi Powers MD 11/29/2014 Voided Katty CRAIG 11/11/2014 Office visit 11/11/2014 Office visit Katty CRAIG 11/11/2014 Office visit Melecio Wilkinson DO 10/14/2014 Office visit Katty CRAIG 09/14/2014 Office visit Katty CRAIG 09/08/2014 [facility] Ama Barrios MD 09/07/2014 Office visit [...] Wilkinson DO 07/08/2013 Office visit Katty Jefferson KIARA 05/06/2013 Office visit Melecio Wilkinson DO 04/07/2013 Office visit Gorge Yo MD 02/26/2013 Office visit Melecio Wilkinson DO 01/29/2013 Office visit Gorge Yo MD 01/06/2013 Office visit Gorge Yo MD 12/09/2012 [facility] Ama Barrios MD 12/09/2012 Office visit Stephanie Richardson APRN 11/26/2012 Office visit Gorge Yo MD 10/30/2012 [facility] Gorge Yo MD 10/29/2012 Office visit [...] 05/14/2012 Office visit Gorge Yo MD 05/12/2012 [facility] DO 05/11/2012 [facility] DO 03/13/2012 Office visit Gorge [...] 03/05/2011 Office visit Melecio Wilkinson DO 02/06/2011 [facility] Gorge Yo MD 01/08/2011 Office visit Meleico Wilkinson DO 12/27/2010 Office visit Gorge Yo MD 11/29/2010 Office visit Gorge Yo MD 11/07/2010 Office visit Melecio Wilkinson DO 09/28/2010 Office visit Gorge Yo MD 09/05/2010 [facility] Gorge Yo MD 08/28/2010 Office visit [...] MD 03/31/2010 Laboratory Alfonso Camacho MD 03/31/2010 [facility] Alfonso Camacho MD 03/21/2010 Procedures Gorge [...]
--- OUTSIDE RECORDS SUMMARY | 2018-01-22 11:56 | XMS REPORT ---
Author Author Katty Jefferson [facility] Address [address] [place] [id number] Care Team Providers Care Machine Biller Name Role Phone Katty Jefferson PCP Allergies [...] 2 times a day for 30 days midodrine 5 mg oral tablet 07/20/2015 TAKE 1 TABLET BY MOUTH TWICE DAILY methocarbamol 750 mg oral tablet 08/17/2015 take 1 tablet by oral route every 6 hours as needed for 30 days digoxin 125 mcg oral tablet 08/17/2015 TAKE 1 TABLET BY MOUTH EVERY DAY lisinopril 20 mg oral tablet 08/17/2015 TAKE 1 TABLET BY MOUTH DAILY oxycodone 20 mg oral tablet 08/25/2015 09/24/2015 take 1 tablet by oral route every [...] for 30 days Discontinued by Hospitalist at [place] Augmentin 875-125 mg oral tablet 11/07/2010 03/05/2011 [...] HC BMI BSA BMI Percentile O2 Sat(%) 08/23/2015 9:51:00 AM 136 mmHg 76 mmHg [...] Reviewed 06/19/2011 12:00 AM Kenalog 40 Mg [facility]#4590-2125-95 Reviewed 08/23/2015 12:00 AM Decadron, Per 1 Mg [facility]# [address]-27 Reviewed 08/23/2015 12:00 AM Depo-Medrol, Per 80 Mg [facility]#[address]-49 Reviewed 11/03/2009 12:00 AM PROTHROMBIN TIME Reviewed 07/26/2011 12:00 AM X-RAY EXAM OF ABDOMEN Reviewed 10/12/2011 12:00 AM EXTREMITY STUDY Reviewed 01/01/2012 12:00 AM Rocephin 1 gm [facility]#[address]-02 Reviewed 01/16/2012 12:00 AM DRAIN/INJ JOINT/BURSA W/O US Reviewed 01/16/2012 12:00 AM Kenalog per 10Mg [facility]#[address]-92(Srinath) Reviewed 02/05/2012 12:[address] ABDOMEN W/O & W/DYE Reviewed 02/05/2012 12:[address] PELVIS W/O & W/DYE Reviewed 05/29/2012 12:00 AM DRAIN/INJ JOINT/BURSA W/O US Reviewed 05/29/2012 12:00 AM SYNVISC, Per 1 Mg (2ml) [facility] [address]-47 Reviewed 06/05/2012 12:00 AM DRAIN/INJ JOINT/BURSA W/O US Reviewed 06/05/2012 12:00 AM SYNVISC, Per 1 Mg (2ml) [facility] [address]-64 Reviewed 06/12/2012 12:00 AM DRAIN/INJ JOINT/BURSA W/O US Reviewed 06/12/2012 12:00 AM SYNVISC, Per 1 Mg (2ml) [facility] [address]-47 Reviewed 07/16/2012 12:00 AM Hepatobiliary ductal system imaging with functional assessment Reviewed 07/16/2012 12:00 AM Decadron 8 mg [facility]#16558809392 Reviewed 07/16/2012 12:00 AM Depo-Medrol 80mg [facility]#48944523813 Reviewed 07/16/2012 12:00 AM COMPREHEN METABOLIC PANEL Reviewed 07/16/2012 12:00 AM LIPID PANEL Reviewed 07/16/2012 12:00 AM Flu Injection 3 Years And Above [facility]# [address]-62 RHC Reviewed 08/19/2012 12:00 AM METABOLIC PANEL TOTAL CA Reviewed 12/21/2009 12:[address] ABDOMEN W/O & W/DYE Reviewed 10/02/2012 12:00 AM CHEST X-RAY 2VW FRONTAL&LATL Reviewed 10/09/2012 12:00 AM Decadron 8 mg [facility]#57130053871 Reviewed 10/09/2012 12:00 AM Depo-Medrol 80mg [facility]#46711439537 Reviewed 12/09/2012 12:00 AM CHEST X-RAY 2VW [...] Mg (6ml) [facility] [address]-50 Reviewed 02/26/2013 12:[address] NECK SPINE W/O & W/DYE Reviewed 04/07/2013 12:00 AM INJECT TRIGGER POINTS 3/> Reviewed 04/07/2013 12:00 AM Kenalog per 10Mg [facility]#[address]-45(Srinath) Reviewed 07/21/2013 12:00 AM CHEST X-RAY 2VW FRONTAL&LATL Reviewed 07/21/2013 12:00 AM Decadron 8 mg [facility]# [address]-95 Reviewed 07/21/2013 12:00 AM Depo-Medrol 80 mg [facility]#[address]-62 Reviewed 07/21/2013 12:00 AM Rocephin 500 mg [facility]#9235-5883-35 Reviewed 09/22/2013 12:00 AM CHEST X-RAY 2VW FRONTAL&LATL Returned 10/29/2013 12:00 AM X-RAY EXAM OF ABDOMEN Reviewed 12/08/2013 12:00 AM THER/PROPH/DIAG INJ SC/IM Reviewed 12/08/2013 12:00 AM Decadron, Per 1 Mg [facility]# [address]-69 Reviewed 12/08/2013 12:00 AM Depo-Medrol, Per 80 Mg [facility]#3044-4303-25 Reviewed 12/08/2013 12:00 AM CHEST X-RAY 2VW [...] Returned 01/05/2014 12:00 AM Decadron 8 mg [facility]# [address]-72 Reviewed 01/05/2014 12:00 AM Depo-Medrol 80 mg [facility]#[address]-58 Reviewed 01/05/2014 12:00 AM Rocephin 1 gram [facility]#5551-1892-90 Reviewed 03/15/2010 12:00 AM PROTHROMBIN TIME Reviewed [...] Reviewed 09/28/2010 12:00 AM Kenalog per 10Mg [facility]#[address]-50(Srinath) Reviewed 05/05/2014 12:00 AM DRAIN/INJ JOINT/BURSA W/O US Reviewed 05/05/2014 12:00 AM SYNVISC-ONE, Per 1 Mg (6ml) [facility] [address]-04 Reviewed 05/06/2014 12:00 AM COMPREHEN METABOLIC PANEL [...] Rocephin 500 mg [facility]#[address]-47 Reviewed 07/14/2014 12:00 AM Fluzone MEDICARE Only Reviewed 11/29/2010 12:00 AM INJECT TRIGGER POINTS 3/> Reviewed 11/29/2010 12:00 AM Kenalog per 10Mg [facility]#[address]-73(Srinath) Reviewed 07/14/2014 12:00 AM Decadron injection Reviewed [...] 10:00AM Lumbar radiculopathy Aug 05 2015 9:02AM Payers Insurance Name Company Name Plan Name Plan Number Policy Number Policy Group Number Start Date Medicare Part A Medicare Part A [id number] N/A [facility] Medicare [facility] Ins [id number] N/A [place] Medical [place] Prog [id number] N/A Medicare Part B Medicare Of [place] [id number] Friday, 2008 History of Encounters Visit Date Visit Type Provider 08/25/2015 Nurse visit Katty CRAIG 08/23/2015 Office [...] DO 01/12/2015 Office visit Katty CRAIG 12/16/2014 [facility] Alfa Platt MD 12/14/2014 Voided Melecio Willhite DO 12/08/2014 Office visit Alfa Platt MD 12/08/2014 Office visit Melecio Jaja DO 12/07/2014 Nurse visit Riri Salazar MD 12/02/2014 [facility] Alfa Platt MD 12/02/2014 [facility]i Powers [facility] Void[facility] Katty CRAIG 11/11/2014 Office visit Katty CRAIG 11/11/2014 Office visit Melecio Jaja DO 10/14/2014 Office visit Katty CRAIG 09/14/2014 Office visit Katty CRAIG 09/08/2014 [facility] Ama Barrios MD 09/07/2014 Office visit Melecio Jaja DO 08/16/2014 Nurse visit Katty CRAIG 07/19/2014 Office visit Katty CRAIG 07/14/2014 Office visit Melecio Jaja DO 06/21/2014 Office visit Katty Jefferson SENIOR BRAND MANAGER 05/20/2014 Office visit Melecio Jaja DO 05/14/2014 Office visit Melecio Jaja DO 05/05/2014 Office visit Katty Jefferson SENIOR BRAND MANAGER 04/26/2014 Office visit Katty Jefferson SENIOR BRAND MANAGER 03/24/2014 Office visit Katty DURÁNP 02/24/2014 Office visit Katty Jefferson SENIOR BRAND MANAGER 01/05/2014 Office visit Melecio Jaja DO 12/23/2013 Office visit Katty Jefferson SENIOR BRAND MANAGER 12/23/2013 Office visit Melecio Wilkinson DO 12/18/2013 Office visit Janis Landon ADVERTISING PRODUCTION MANAGER 12/08/2013 Office visit Janis Navarrete ADVERTISING PRODUCTION MANAGER 11/25/2013 Office visit Katty DURÁNP 10/29/2013 Office visit Melecio Wilkinson DO 09/22/2013 Office visit Janis Navarrete ADVERTISING PRODUCTION MANAGER 07/28/2013 Office visit Katty DURÁNP 07/21/2013 Office visit Melecio Wilkinson DO 07/08/2013 Office visit Katty CRAIG 05/06/2013 Office visit Melecio Wilkinson DO 04/07/2013 Office visit Gorge Yo MD 02/26/2013 Office visit Melecio Wilkinson DO 01/29/2013 Office visit Gorge Yo MD 01/06/2013 Office visit Gorge Yo MD 12/09/2012 [facility] Ama Barrios MD 12/09/2012 Office visit Stephanie Richardson APRN 11/26/2012 Office visit Gorge Yo MD 10/30/2012 [facility] Gorge Yo MD 10/29/2012 Office [...] 05/14/2012 Office visit Gorge Yo MD 05/12/2012 [facility] DO 05/11/2012 [facility] DO 03/13/2012 Office visit Gorge Yo [...] 03/05/2011 Office visit Melecio Wilkinson DO 02/06/2011 [facility] Gorge Yo MD 01/08/2011 Office visit Melecio Wilkinson DO 12/27/2010 Office visit Gorge Yo MD 11/29/2010 Office visit Gorge Yo MD 11/07/2010 Office visit Melecio Wilkinson DO 09/28/2010 Office visit Gorge Yo MD 09/05/2010 [facility] Gorge Yo MD 08/28/2010 Office visit Gorge Yo MD 08/07/2010 Office visit Janis Navarrete APRN 07/25/2010 Office visit Melecio Wilkinson DO 06/27/2010 Office visit Gorge Yo MD 06/14/2010 Office visit Melecio Wilkinson DO 06/06/2010 Laboratory Alfonso Camacho MD 06/01/2010 Office visit Melecio Wilkinson DO 04/17/2010 Office visit Melecio Wilkinson DO 04/06/2010 Office visit Gorge Yo MD 04/02/2010 [facility] Alfonso Camacho MD 03/31/2010 Laboratory Alfonso [...]
--- OUTSIDE RECORDS SUMMARY | 2018-01-22 11:59 | XMS REPORT ---
Author Author Katty Jefferson [facility] Address [address] [place] [id number] Care Team Providers Care Payroll Representative Name Role Phone Katty Jefferson PCP Allergies [...] to 6 hours for 30 days pain Lyrica 50 mg oral capsule 08/29/2015 11/27/2015 take 1 capsule by oral route 2 times a day for 30 days Name Start Date [...] for 30 days Discontinued by Hospitalist at [place] Augmentin 875-125 mg oral tablet 11/07/2010 03/05/2011 [...] HC BMI BSA BMI Percentile O2 Sat(%) 09/07/2015 8:30:00 AM 152 mmHg 96 mmHg [...] 07/11/2015 12:00 AM Kenalog, Per 10 Mg [facility]#1190-6396-21 Reviewed 06/19/2011 12:00 AM DRAIN/INJ JOINT/BURSA W/O US Reviewed 06/19/2011 12:00 AM Kenalog 40 Mg [facility]#8706-1221-01 Reviewed 08/25/2015 12:00 AM OFFICE/OUTPATIENT VISIT EST Reviewed 08/23/2015 12:00 AM Decadron, Per 1 Mg [facility]# [address]-57 Reviewed 08/23/2015 12:00 AM Depo-Medrol, Per 80 Mg [facility]#[address]-93 Reviewed 09/07/2015 12:00 AM X-RAY EXAM L-S SPINE 10/26 VWS Returned 09/07/2015 12:00 AM COMPLETE CBC W/AUTO DIFF WBC Returned 09/07/2015 12:00 AM ASSAY THYROID STIM HORMONE Returned 09/07/2015 12:00 AM COMPREHEN METABOLIC PANEL Returned 09/07/2015 12:00 AM URNLS DIP STICK/TABLET RGNT AUTO W/O MICROSCOPY Returned 11/03/2009 12:00 AM PROTHROMBIN TIME Reviewed 07/26/2011 12:00 AM X-RAY EXAM OF ABDOMEN Reviewed 10/12/2011 12:00 AM EXTREMITY STUDY Reviewed 01/01/2012 12:00 AM Rocephin 1 gm [facility]#[address]-03 Reviewed 01/16/2012 12:00 AM DRAIN/INJ JOINT/BURSA W/O US Reviewed 01/16/2012 12:00 AM Kenalog per 10Mg [facility]#[address]-41(Srinath) Reviewed 02/05/2012 12:[address] ABDOMEN W/O & W/DYE Reviewed 02/05/2012 12:[address] PELVIS W/O & W/DYE Reviewed 05/29/2012 12:00 AM DRAIN/INJ JOINT/BURSA W/O US Reviewed 05/29/2012 12:00 AM SYNVISC, Per 1 Mg (2ml) [facility] [address]-32 Reviewed 06/05/2012 12:00 AM DRAIN/INJ JOINT/BURSA W/O US Reviewed 06/05/2012 12:00 AM SYNVISC, Per 1 Mg (2ml) [facility] [address]-32 Reviewed 06/12/2012 12:00 AM DRAIN/INJ JOINT/BURSA W/O US Reviewed 06/12/2012 12:00 AM SYNVISC, Per 1 Mg (2ml) [facility] [address]-04 Reviewed 07/16/2012 12:00 AM Hepatobiliary ductal system imaging with functional assessment Reviewed 07/16/2012 12:00 AM Decadron 8 mg [facility]#[id number] Reviewed 07/16/2012 12:00 AM Depo-Medrol 80mg [facility]#60899793260 Reviewed 07/16/2012 12:00 AM COMPREHEN METABOLIC PANEL Reviewed 07/16/2012 12:00 AM LIPID PANEL Reviewed 07/16/2012 12:00 AM Flu Injection 3 Years And Above [facility]# [address]-28 RHC Reviewed 08/19/2012 12:00 AM METABOLIC PANEL TOTAL CA Reviewed 12/21/2009 12:[address] ABDOMEN W/O & W/DYE Reviewed 10/02/2012 12:00 AM CHEST X-RAY 2VW FRONTAL&LATL Reviewed 10/09/2012 12:00 AM Decadron 8 mg [facility]#[id number] Reviewed 10/09/2012 12:00 AM Depo-Medrol 80mg [facility]#27628324698 Reviewed 12/09/2012 12:00 AM CHEST X-RAY 2VW [...] 12:00 AM SYNVISC-ONE, Per 1 Mg (6ml) [facility] [address]-70 Reviewed 02/26/2013 12:[address] NECK SPINE W/O & W/DYE Reviewed 04/07/2013 12:00 AM INJECT TRIGGER POINTS 3/> Reviewed 04/07/2013 12:00 AM Kenalog per 10Mg [facility]#[address]-94(Srinath) Reviewed 07/21/2013 12:00 AM CHEST X-RAY 2VW FRONTAL&LATL Reviewed 07/21/2013 12:00 AM Decadron 8 mg [facility]# [address]-56 Reviewed 07/21/2013 12:00 AM Depo-Medrol 80 mg [facility]#[address]-30 Reviewed 07/21/2013 12:00 AM Rocephin 500 mg [facility]#8137-7172-33 Reviewed 09/22/2013 12:00 AM CHEST X-RAY 2VW FRONTAL&LATL Returned 10/29/2013 12:00 AM X-RAY EXAM OF ABDOMEN Reviewed 12/08/2013 12:00 AM THER/PROPH/DIAG INJ SC/IM Reviewed 12/08/2013 12:00 AM Decadron, Per 1 Mg ND# [address]-89 Reviewed 12/08/2013 12:00 AM Depo-Medrol, Per 80 Mg [facility]#4318-1297-58 Reviewed 12/08/2013 12:00 AM CHEST X-RAY 2VW [...] Returned 01/05/2014 12:00 AM Decadron 8 mg [facility]# [address]-64 Reviewed 01/05/2014 12:00 AM Depo-Medrol 80 mg [facility]#[address]-86 Reviewed 01/05/2014 12:00 AM Rocephin 1 gram [facility]#1155-9319-58 Reviewed 03/15/2010 12:00 AM PROTHROMBIN TIME Reviewed [...] Reviewed 09/28/2010 12:00 AM Kenalog per 10Mg [facility]#[address]-69(Srinath) Reviewed 05/05/2014 12:00 AM DRAIN/INJ JOINT/BURSA W/O US Reviewed 05/05/2014 12:00 AM SYNVISC-ONE, Per 1 Mg (6ml) [facility] [address]-58 Reviewed 05/06/2014 12:00 AM COMPREHEN METABOLIC PANEL [...] Reviewed 11/07/2010 12:00 AM Rocephin 500 mg [facility]#[address]-76 Reviewed 07/14/2014 12:00 AM Fluzone MEDICARE Only Reviewed 11/29/2010 12:00 AM INJECT TRIGGER POINTS 3/> Reviewed 11/29/2010 12:00 AM Kenalog per 10Mg [facility]#[address]-38(Srinath) Reviewed 07/14/2014 12:00 AM Decadron injection Reviewed [...] 0.02 # BASO 0.01 09/07/2015 9:58 AM GLUCOSE 101.0 mg/dLSODIUM 140.0 mmol/LPOTASSIUM 3.80 mmol/ LCHLORIDE 105.0 mmol/LCO2 25.0 mmol/LBUN 22.0 mg/dLCREATININE 1.50 mg/dLSGOT/ AST 11.0 IU/LSGPT/ALT 7.0 IU/LALK PHOS 102.0 IU/LTOTAL PROTEIN 7.40 g/dLALBUMIN 3.80 g/dLTOTAL BILI 0.30 mg/dLCALCIUM 8.80 mg/dLeGFR 48 WBC 7.3 RBC 4.56 HGB 13.40 g/dLHCT 40.30 %MCV 88.0 fLMCH 29.40 pgMCHC 33.30 g/dLRDW CV 19.30 %MPV 9.90 fLPLT 232 %NEUT 72.80 %%LYMP 16.80 %%MONO 7.80 %%EOS 2.20 %%BASO 0.40 %# NEUT 5.33 #LYMP 1.23 #MONO 0.57 #EOS 0.16 #BASO 0.03 History Of Immunizations Not available. History of [...] 2015 8:34AM Fatigue Sep 07 2015 8:34AM Payers Insurance Name Company Name Plan Name Plan Number Policy Number Policy Group Number Start Date Medicare Part A Medicare Part A [id number] N/A [place] [facility] Medicare [facility] Ins [phone] N/A [facility] Assistance [facility] Medical [facility] Prog [id number] N/A Medicare Part B Medicare Of [place] [id number] Friday, 2008 History of Encounters Visit Date Visit Type Provider 09/07/2015 Office visit Katty CRAIG 08/25/2015 Nurse [...] Office visit Katty CRAIG 12/16/2014 [facility] Alfa Platt MD 12/14/2014 Voided Melecio Jaja DO 12/08/2014 Office visit Alfa Platt MD 12/08/2014 Office visit Melecio Jaja DO 12/07/2014 Nurse visit Riri Salazar MD 12/02/2014 [facility] Alfa Platt MD 12/02/2014 [facility] Magi Powers MD 11/29/2014 [facility] Magi Powers MD 11/29/2014 Voided Katty [...] Melecio Jaja DO 05/05/2014 Office visit Katty CRAGI 04/26/2014 Office visit Katty CRAIG 03/24/2014 Office visit Katty CRAIG 02/24/2014 Office visit Katty CRAIG 01/05/2014 Office visit Melecio Jaja DO 12/23/2013 Office visit Katty CRAIG 12/23/2013 Office visit Melecio Jaja DO 12/18/2013 Office visit Janis Navarrete APRN [...] visit Gorge Yo MD 10/30/2012 [facility] Gorge Yo MD 10/29/2012 Office visit [...] 05/14/2012 Office visit Gorge Yo MD 05/12/2012 [facility] DO 05/11/2012 [facility] DO 03/13/2012 Office visit Gorge [...] visit Melecio Wilkinson DO 02/06/2011 [facility] Gorge Yo MD 01/08/2011 Office visit Melecio Wilkinson DO 12/27/2010 Office visit Gorge Yo MD 11/29/2010 Office visit Gorge Yo MD 11/07/2010 Office visit Melecio Wilkinson DO 09/28/2010 Office visit Gorge Yo MD 09/05/2010 [facility] Gorge Yo MD 08/28/2010 Office visit Gorge Yo MD 08/07/2010 Office visit Janis Navarrete APRN 07/25/2010 Office visit Melecio Wilkinson DO 06/27/2010 Office visit Gorge Yo MD 06/14/2010 Office visit Melecio Wilkinson DO 06/06/2010 Laboratory Alfonso Camacho MD 06/01/2010 Office visit Melecio Wilkinson DO 04/17/2010 Office visit Melecio Wilkinson DO 04/06/2010 Office visit Gorge Yo MD 04/02/2010 [facility] Alfonso Camacho MD 03/31/2010 Laboratory Alfonso [...]
--- OUTSIDE RECORDS SUMMARY | 2018-01-22 12:02 | XMS REPORT ---
Author Author Melecio Wilkinson [facility] Address [address] [place] [id number] Care Team Providers Care Director Of Laboratory Operations Name Role Phone Melecio Wilkinson PCP Unavailable [...] EVERY DAY 30 MINUTES BEFORE A MEAL oxycodone 20 mg oral tablet 10/24/2015 11/23/2015 take 1 tablet by oral route every [...] for 30 days Discontinued by Hospitalist at [place] Augmentin 875-125 mg oral tablet 11/07/2010 03/05/2011 [...] 07/11/2015 12:00 AM Kenalog, Per 10 Mg [facility]#7686-3683-79 Reviewed 06/19/2011 12:00 AM DRAIN/INJ JOINT/BURSA W/O US Reviewed 06/19/2011 12:00 AM Kenalog 40 Mg [facility]#6202-3263-56 Reviewed 08/25/2015 12:00 AM OFFICE/OUTPATIENT VISIT EST Reviewed 08/23/2015 12:00 AM Decadron, Per 1 Mg [facility]# [address]-88 Reviewed 08/23/2015 12:00 AM Depo-Medrol, Per 80 Mg [facility]#[address]-89 Reviewed 09/07/2015 12:00 AM X-RAY EXAM L-S [...] Reviewed 01/01/2012 12:00 AM Rocephin 1 gm [facility]#[address]-76 Reviewed 01/16/2012 12:00 AM DRAIN/INJ JOINT/BURSA W/O US Reviewed 01/16/2012 12:00 AM Kenalog per 10Mg [facility]#[address]-77(Srinath) Reviewed 02/05/2012 12:[address] ABDOMEN W/O & W/DYE Reviewed 02/05/2012 12:[address] PELVIS W/O & W/DYE Reviewed 05/29/2012 12:00 AM DRAIN/INJ JOINT/BURSA W/O US Reviewed 05/29/2012 12:00 AM SYNVISC, Per 1 Mg (2ml) [facility] [address]-82 Reviewed 06/05/2012 12:00 AM DRAIN/INJ JOINT/BURSA W/O US Reviewed 06/05/2012 12:00 AM SYNVISC, Per 1 Mg (2ml) [facility] [address]-89 Reviewed 06/12/2012 12:00 AM DRAIN/INJ JOINT/BURSA W/O US Reviewed 06/12/2012 12:00 AM SYNVISC, Per 1 Mg (2ml) [facility] [address]-04 Reviewed 07/16/2012 12:00 AM Hepatobiliary ductal system imaging with functional assessment Reviewed 07/16/2012 12:00 AM Decadron 8 mg [facility]#55908500199 Reviewed 07/16/2012 12:00 AM Depo-Medrol 80mg [facility]#29344085404 Reviewed 07/16/2012 12:00 AM COMPREHEN METABOLIC PANEL Reviewed 07/16/2012 12:00 AM LIPID PANEL Reviewed 07/16/2012 12:00 AM Flu Injection 3 Years And Above [facility]# [address]-51 RHC Reviewed 08/19/2012 12:00 AM METABOLIC PANEL TOTAL CA Reviewed 12/21/2009 12:[address] ABDOMEN W/O & W/DYE Reviewed 10/02/2012 12:00 AM CHEST X-RAY 2VW FRONTAL&LATL Reviewed 10/09/2012 12:00 AM Decadron 8 mg [facility]#65402936448 Reviewed 10/09/2012 12:00 AM Depo-Medrol 80mg [facility]#47412532551 Reviewed 12/09/2012 12:00 AM CHEST X-RAY 2VW [...] 12:00 AM SYNVISC-ONE, Per 1 Mg (6ml) [facility] [address]-29 Reviewed 02/26/2013 12:[address] NECK SPINE W/O & W/DYE Reviewed 04/07/2013 12:00 AM INJECT TRIGGER POINTS 3/> Reviewed 04/07/2013 12:00 AM Kenalog per 10Mg [facility]#[address]-53(Srinath) Reviewed 07/21/2013 12:00 AM CHEST X-RAY 2VW FRONTAL&LATL Reviewed 07/21/2013 12:00 AM Decadron 8 mg [facility]# [address]-90 Reviewed 07/21/2013 12:00 AM Depo-Medrol 80 mg [facility]#[address]-80 Reviewed 07/21/2013 12:00 AM Rocephin 500 mg [facility]#4268-4874-36 Reviewed 09/22/2013 12:00 AM CHEST X-RAY 2VW FRONTAL&LATL Returned 10/29/2013 12:00 AM X-RAY EXAM OF ABDOMEN Reviewed 12/08/2013 12:00 AM THER/PROPH/DIAG INJ SC/IM Reviewed 12/08/2013 12:00 AM Decadron, Per 1 Mg [facility]# [address]-36 Reviewed 12/08/2013 12:00 AM Depo-Medrol, Per 80 Mg [facility]#7037-5647-10 Reviewed 12/08/2013 12:00 AM CHEST X-RAY 2VW [...] Returned 01/05/2014 12:00 AM Decadron 8 mg [facility]# [address]-02 Reviewed 01/05/2014 12:00 AM Depo-Medrol 80 mg [facility]#[address]-23 Reviewed 01/05/2014 12:00 AM Rocephin 1 gram [facility]#1728-4024-92 Reviewed 03/15/2010 12:00 AM PROTHROMBIN TIME Reviewed [...] Reviewed 09/28/2010 12:00 AM Kenalog per 10Mg [facility]#[address]-37(Srinath) Reviewed 05/05/2014 12:00 AM DRAIN/INJ JOINT/BURSA W/O US Reviewed 05/05/2014 12:00 AM SYNVISC-ONE, Per 1 Mg (6ml) [facility] [address]-75 Reviewed 05/06/2014 12:00 AM COMPREHEN METABOLIC PANEL [...] Reviewed 11/07/2010 12:00 AM Rocephin 500 mg [facility]#[address]-67 Reviewed 07/14/2014 12:00 AM Fluzone MEDICARE Only Reviewed 11/29/2010 12:00 AM INJECT TRIGGER POINTS 3/> Reviewed 11/29/2010 12:00 AM Kenalog per 10Mg [facility]#[address]-42(Srinath) Reviewed 07/14/2014 12:00 AM Decadron injection Reviewed [...] Date Medicare Part A Medicare Part A [id number] N/A [facility] Comm [id number] Wednesday, 2015 [facility] Medicare [facility] Life Ins [id number] N/A [place] [facility] [place] [facility] [place] Prog [id number] N/A Medicare Part B Medicare Of [place] [id number] Friday, 2008 History of Encounters Visit Date [...] Melecio Jaja DO 03/29/2015 Office visit Katty CARIG 03/28/2015 Office visit Melecio Jaja DO 03/15/2015 Office visit Katty CRAIG 02/28/2015 Office visit Melecio Jaja DO 02/17/2015 Office visit Melecio Jaja DO 02/17/2015 Office visit Katty CRAIG 01/19/2015 Office visit Katty CRAIG 01/13/2015 Office visit Melecio Jaja DO 01/12/2015 Office visit Katty CRAIG 12/16/2014 [facility] Alfa Platt MD 12/14/2014 Voided Melecio Jaja DO 12/08/2014 Office visit Alfa Platt MD 12/08/2014 Office visit Melecio Wilkinson DO 12/07/2014 Nurse visit Riri Salzaar MD 12/02/2014 [facility] Alfa Platt MD 12/02/2014 [facility] Magi Powers MD 11/29/2014 [facility] Magi Powers MD 11/29/2014 Voided Katty [...] Jaja DO 12/18/2013 Office visit Janis Navarrete MEDICAL OFFICE TECHNOLOGY INSTRUCTOR 12/08/2013 Office visit Janis Navarrete MEDICAL OFFICE TECHNOLOGY INSTRUCTOR 11/25/2013 Office visit Katty CRAIG 10/29/2013 Office [...] Barrios MD 12/09/2012 Office visit Stephanie Richardson MEDICAL OFFICE TECHNOLOGY INSTRUCTOR 11/26/2012 Office visit Gorge Yo MD 10/30/2012 [facility] Gorge Yo MD 10/29/2012 Office visit [...] 05/14/2012 Office visit Gorge Yo MD 05/12/2012 [facility] DO 05/11/2012 [facility] DO 03/13/2012 Office visit Gorge [...] 03/05/2011 Office visit Melecio Wilkinson DO 02/06/2011 [facility] Gorge Yo MD 01/08/2011 Office visit Melecio Wilkinson DO 12/27/2010 Office visit Gorge Yo MD 11/29/2010 Office visit Gorge Yo MD 11/07/2010 Office visit Melecio Wilkinson DO 09/28/2010 Office visit Gorge Yo MD 09/05/2010 [facility] Gorge Yo MD 08/28/2010 Office visit Gorge Yo MD 08/07/2010 Office visit Janis Navarrete APRN 07/25/2010 Office visit Melecio Wilkinson DO 06/27/2010 Office visit Gorge Yo MD 06/14/2010 Office visit Melecio Wilkinson DO 06/06/2010 Laboratory Alfonso Camacho MD 06/01/2010 Office visit Melecio Wilkinson DO 04/17/2010 Office visit Melecio Wilkinson DO 04/06/2010 Office visit Gorge Yo MD 04/02/2010 [facility] Alfonso Camacho MD 03/31/2010 Laboratory Alfonso Camacho MD 03/31/2010 Laboratory Alfonso Camacho MD 03/31/2010 [facility] Alfonso Camacho MD 03/21/2010 Procedures Gorge [...]
--- OUTSIDE RECORDS SUMMARY | 2018-01-22 12:05 | XMS REPORT | CCD ---
Author Author GRAHAM GROSS Unknown Address [address] [place] [address] Care Team Providers Care Healthcare Recruiter Name Role Phone GAL LI DO Attphys Allergies Allergy Code Allergy Type Reaction Status No Known Drug Allergies 0 Drug allergy Active Active Medications Medication Code Dose Units Frequency Route Modification Start Date/Time Magnesium Oxide 400MG Oral Tablet 264550 400 MILLIGRAMS THREE TIMES A DAY BY MOUTH 02/03/2017 11:27 Prescription Detail 400 MILLIGRAMS BY MOUTH THREE TIMES A DAY cloNIDine HCl 0.2MG Oral Tablet 569411 0.2 MILLIGRAMS THREE TIMES A DAY ORAL 01/02/2017 09:49 Prescription Detail 0.2 MILLIGRAMS ORAL THREE TIMES A DAY Opdivo 10MG/1ML Intravenous Solution 1070684 1 EACH INTRAVENOUS 01/02/2017 09:49 Prescription Detail 1 EACH INTRAVENOUS Opdivo 10MG/1ML Intravenous Solution 7357561 1 EACH INTRAVENOUS 01/02/2017 09:49 Prescription Detail 1 EACH INTRAVENOUS opdivo 40mg/4ml 0 1 EACH every two weeks INTRAMUSCULAR 01/02/2017 09:49 Prescription Detail 1 EACH INTRAMUSCULAR every two weeks Metoprolol Tartrate 25MG Oral Tablet 535342 12.5 MILLIGRAMS TWO TIMES A DAY BY MOUTH 01/02/2017 09: 47 Prescription Detail 12.5 MILLIGRAMS (Half tablet) BY MOUTH TWO TIMES A DAY Lipitor 40MG Oral Tablet 873520 40 MILLIGRAMS DAILY ORAL 07/06/2016 15:46 Prescription Detail 40 MILLIGRAMS ORAL DAILY Methocarbamol 750MG Oral Tablet 943847 750 MILLIGRAMS NEEDED EVERY 6 HR ORAL 07/06/2016 15:46 Prescription Detail 750 MILLIGRAMS ORAL NEEDED EVERY 6 HR oxyCODONE HCl 20MG Oral Tablet 9743601 20 MILLIGRAMS NEEDED EVERY 4 HR ORAL 07/06/2016 15:46 Prescription Detail 20 MILLIGRAMS ORAL NEEDED EVERY 4 HR Omeprazole 40MG Oral Capsule, Delayed Release 674048 40 MILLIGRAMS DAILY ORAL 12/02/2014 13:01 Prescription Detail 40 MILLIGRAMS ORAL DAILY Digoxin 0.125MG Oral Tablet 427203 0.125 MILLIGRAMS DAILY ORAL 03/17/2014 15:16 Prescription Detail 0.125 MILLIGRAMS ORAL DAILY Loratadine 10MG Oral Tablet 196888 10 MILLIGRAMS DAILY ORAL 03/17/2014 15:16 Prescription Detail 10 MILLIGRAMS ORAL DAILY Symbicort 160MCG/Actuation-4.5 Inhalation Aerosol Liquid 8744431 1 EACH TWO TIMES A DAY INHALATION 2013 15:16 Prescription Detail 1 EACH INHALATION TWO TIMES A DAY Tamsulosin Hydrochloride 0.4MG Oral Capsule 341749 0.4 MILLIGRAMS DAILY ORAL 03/17/2014 15:16 Prescription Detail 0.4 MILLIGRAMS ORAL DAILY Xarelto 20MG Oral Tablet 1744798 20 MILLIGRAMS DAILY ORAL 03/17/2014 15:16 Prescription Detail 20 MILLIGRAMS ORAL DAILY Zolpidem 10MG Oral Tablet 152734 10 MILLIGRAMS DAILY ORAL 03/17/2014 15:16 Prescription Detail 10 MILLIGRAMS ORAL DAILY Problems Problem Code Start Date Resolved Date Status Acute injury of kidney 08407519833632470 2017 Active Hypotension 60315134 01/31/2017 Active Dehydrated 94805547 2017 Active Procedures Procedure Code Procedure Type Date CX CHEST 1 VIEW 710424972 [facility] 03/05/2017 TROPONIN-I ADV 121255305 SNOMED CT 03/05/[address] 03/05/2017 CBC W/ AUTO DIFF (RFLX MAN DIFF IF IND) 9043996 [facility] 03/05/2017 COMPREHENSIVE METABOLIC PANEL 775290075 SNOMED CT [address] 03/05/2017 ^CBC W/ MANUAL DIFF 55272663 SNOMED CT 03/05/2017 [facility] ECL[facility]SE T[facility]ATMENT 32749994 [facility] 03/05/2017 Results COMPREHENSIVE METABOLIC PANEL - Collect Date/Time: 03/05/2017 16:45 Test Name Code Test Result Test Units Test Ref Range GLUCOSE 2345-7 109 MG/DL L=70 H=100 SODIUM 2951-2 137 MEQ/L L=135 H=148 POTASSIUM 2823-3 3.5 MEQ/L L=3.5 H=5.3 CHLORIDE 2075-0 102 MEQ/L L=96 H=110 CO2 2028-9 24 MEQ/L L=22 H=29 BUN 3094-0 22 MG/DL L=8 H=22 CREATININE 2160-0 1.6 MG/DL L=0.6 H=1.6 SGOT/AST 1920-8 12 IU/L L=10 H=40 SGPT/ALT 1742-6 8 IU/L L=8 H=54 ALK PHOS 6768-6 101 IU/L L=35 H=115 TOTAL PROTEIN 2885-2 7.4 G/DL L=5.5 H=8.5 ALBUMIN 1751-7 3.7 G/DL L=3.1 H=5.4 TOTAL BILI 1975-2 0.4 MG/DL L=0.0 H=1.5 CALCIUM 86980-0 9.0 MG/DL L=8.2 H=10.6 AGE 57 yrs GFR NonAA 45 GFR AA 55 eGFR 45 mL/min/1.7 eGFR AA* 55 mL/min/1.7 MAGNESIUM - Collect Date/Time: 03/05/2017 16:45 Test Name Code Test Result Test Units Test Ref Range MAGNESIUM 00746-0 1.7 MG/DL L=1.7 H=2.8 CBC W/ AUTO DIFF (RFLX MAN DIFF IF IND) - Collect Date/Time: 03/05/2017 16:45 Test Name Code Test Result Test Units Test Ref Range WBC 29924-9 13.3 TH/CMM L=4.5 H=10.8 RBC 789-8 4.82 ML/CMM L=4.70 H=6.10 HGB 718-7 12.7 G/DL L=14.0 H=18.0 HCT 4544-3 40.9 % L=42.0 H=52.0 MCV 85 FL L=81 H=99 MCH 26.3 PG L=27.0 H=33.0 MCHC 31.1 G/DL L=31.0 H=36.0 RDW SD 53 FL L=36 H=50 RDW CV 17.2 % L=0.0 H=14.8 MPV 9.1 FL L=9.3 H=12.5 PLT 777-3 266 TH/CMM L=130 H=440 NRBC# 0.00 TH/CMM L=0.00 H=0.00 NRBC% 0.0 /100WBC L=0.0 H=2.0 %NEUT 79.7 % %LYMP 7.6 % %MONO 6.0 % %EOS 5.9 % %BASO 0.4 % #NEUT 10.64 TH/CMM L=2.10 H=8.20 #LYMP 1.01 TH/CMM L=0.90 H=5.20 #MONO 0.80 TH/CMM L=0.16 H=1.00 #EOS 0.78 TH/CMM L=0.00 H=0.80 #BASO 0.05 TH/CMM L=0.00 H=0.20 SEGS 81 % BANDS 1 % LYMPHS 9 % MONOS 5 % EOS 4 % MANUAL DIFF SEE BELOW N/A HYPO 1+ N/A PT/PTT - Collect Date/Time: 03/05/2017 16:45 Test Name Code Test Result Test Units Test Ref Range PROTIME 5964-2 15.7 SEC L=9.9 H=11.9 INR 33140-5 1.4 PTT 3173-2 103.2 SEC L=22.2 H=37.2 BNP - Collect Date/Time: 03/05/2017 16:45 Test Name Code Test Result Test Units Test Ref Range BNP 43118-1 90 PG/ML L=0 H=100 TROPONIN-I ADV - Collect Date/Time: 03/05/2017 16:45 Test Name Code Test Result Test Units [place] [address]-5 <0.04 ng/mL L=0.04 H= 0.40 Function Status Unknown or Not Available. History of Immunizations Immunization Code Date Pneumococcal conjugate PCV 13 133 07/09/2016 influenza, injectable, quadrivalent, preservative free 150 2015 Plan of Treatment Unknown or Not Available. Social History Smoking Status Code Start Date End Date Current every day smoker [id number] Vital Signs Unknown or Not Available. Function Status Unknown or Not Available. Goals Unknown or Not Available. ASSESSMENTS Unknown or Not Available. Health Concerns Section Unknown or Not Available.
--- OUTSIDE RECORDS SUMMARY | 2018-01-22 12:05 | XMS REPORT ---
Author Author Katty Jefferson [facility] Address [address] [place] [id number] Care Team Providers Care Poultry Boner Name Role Phone Katty Jefferson PCP Allergies [...] BY MOUTH THREE TIMES DAILY NEEDED omeprazole 40 mg oral capsule,delayed release(DR/EC) 01/13/2015 07/12/2015 take 1 capsule by oral route 2 times a day for 30 days methocarbamol 500 mg oral tablet 01/24/2015 [...] TAKE 1 TABLET BY MOUTH EVERY DAY zolpidem 10 mg oral tablet 03/02/2015 05/31/2015 take 1 tablet (10 mg) by oral route once daily at bedtime for 30 days cimetidine 200 mg oral tablet 03/02/2015 take 1 tablet (200 mg) by oral route once daily 30 minutes before meals omeprazole 40 mg oral capsule,delayed release(DR/EC) 03/23/2015 TAKE 1 CAPSULE BY MOUTH ONCE DAILY BEFORE A MEAL betamethasone dipropionate 0.05 % topical lotion 03/28/2015 [...] (40 mg) by oral route once daily carvedilol 12.5 mg oral tablet take 2 tablets (25 mg) by oral route 2 times per day with food Vitamin D3 1,000 unit oral capsule take 1 capsule by oral route oxycodone 20 mg oral tablet 05/16/2015 06/15/2015 take 1 tablet (20 mg) by oral route every 4-6 hours for 30 days Lyrica 50 mg oral capsule 05/16/2015 take 1 capsule by oral route 3 times a day Name Start Date Expiration Date SIG [...] every 12 hours for 7 days Cipro 500 mg oral tablet 01/13/2015 01/20/2015 take 1 tablet (500 mg) by oral route every 12 hours for 7 days furosemide 20 mg oral tablet 02/24/2015 [...] route 2 times per day with food Discontinued Name Start Date Discontinued Date SIG [...] for 30 days Discontinued by Hospitalist at [facility] Augmentin 875-125 mg oral tablet 11/07/2010 03/05/2011 [...] HC BMI BSA BMI Percentile O2 Sat(%) 05/16/2015 1:10:00 PM 162 mmHg 84 mmHg [...] 12:00 AM Kenalog 40 Mg Im[facility]#7398-1240-13 Reviewed 11/03/2009 12:00 AM PROTHROMBIN TIME Reviewed 07/26/2011 12:00 AM X-RAY EXAM OF ABDOMEN Reviewed 10/12/2011 12:00 AM EXTREMITY STUDY Reviewed 01/01/2012 12:00 AM Rocephin 1 gm [facility]#[address]-56 Reviewed 01/16/2012 12:00 AM DRAIN/INJ JOINT/BURSA W/O US Reviewed 01/16/2012 12:00 AM Kenalog per 10Mg Im-[facility]#[address]-46(Srinath) Reviewed 02/05/2012 12:[address] ABDOMEN W/O & W/DYE Reviewed 02/05/2012 12:[address] PELVIS W/O & W/DYE Reviewed 05/29/2012 12:00 AM DRAIN/INJ JOINT/BURSA W/O US Reviewed 05/29/2012 12:00 AM SYNVISC, Per 1 Mg (2ml) [facility] [address]-07 Reviewed 06/05/2012 12:00 AM DRAIN/INJ JOINT/BURSA W/O US Reviewed 06/05/2012 12:00 AM SYNVISC, Per 1 Mg (2ml) [facility] [address]-96 Reviewed 06/12/2012 12:00 AM DRAIN/INJ JOINT/BURSA W/O US Reviewed 06/12/2012 12:00 AM SYNVISC, Per 1 Mg (2ml) [facility] [address]-58 Reviewed 07/16/2012 12:00 AM Hepatobiliary ductal system imaging with functional assessment Reviewed 07/16/2012 12:00 AM Decadron 8 mg [facility]#[id number] Reviewed 07/16/2012 12:00 AM Depo-Medrol 80mg [facility]#[id number] Reviewed 07/16/2012 12:00 AM COMPREHEN METABOLIC PANEL Reviewed 07/16/2012 12:00 AM LIPID PANEL Reviewed 07/16/2012 12:00 AM Flu Injection 3 Years And Above [facility]# [address]-84 RHC Reviewed 08/19/2012 12:00 AM METABOLIC PANEL TOTAL CA Reviewed 12/21/2009 12:[address] ABDOMEN W/O & W/DYE Reviewed 10/02/2012 12:00 AM CHEST X-RAY 2VW FRONTAL&LATL Reviewed 10/09/2012 12:00 AM Decadron 8 mg [facility]#[id number] Reviewed 10/09/2012 12:00 AM Depo-Medrol 80mg [facility]#46603290829 Reviewed 12/09/2012 12:00 AM CHEST X-RAY 2VW [...] 12:00 AM SYNVISC-ONE, Per 1 Mg (6ml) [facility] [address]-78 Reviewed 02/26/2013 12:[address] NECK SPINE W/O & W/DYE Reviewed 04/07/2013 12:00 AM INJECT TRIGGER POINTS 3/> Reviewed 04/07/2013 12:00 AM Kenalog per 10Mg Im-[facility]#[address]-91(Srinath) Reviewed 07/21/2013 12:00 AM CHEST X-RAY 2VW FRONTAL&LATL Reviewed 07/21/2013 12:00 AM Decadron 8 mg ND# [address]-62 Reviewed 07/21/2013 12:00 AM Depo-Medrol 80 mg [facility]#[address]-79 Reviewed 07/21/2013 12:00 AM Rocephin 500 mg [place]#5117-7376-66 Reviewed 09/22/2013 12:00 AM CHEST X-RAY 2VW FRONTAL&LATL Returned 10/29/2013 12:00 AM X-RAY EXAM OF ABDOMEN Reviewed 12/08/2013 12:00 AM THER/PROPH/DIAG INJ SC/IM Reviewed 12/08/2013 12:00 AM Decadron, Per 1 Mg ND# [address]-77 Reviewed 12/08/2013 12:00 AM Depo-Medrol, Per 80 Mg ND#4703-2384-52 Reviewed 12/08/2013 12:00 AM CHEST X-RAY 2VW [...] Returned 01/05/2014 12:00 AM Decadron 8 mg [facility]# [address]-11 Reviewed 01/05/2014 12:00 AM Depo-Medrol 80 mg [facility]#[address]-48 Reviewed 01/05/2014 12:00 AM Rocephin 1 gram [place]#1507-4564-10 Reviewed 03/15/2010 12:00 AM PROTHROMBIN TIME Reviewed [...] 12:00 AM Kenalog per 10Mg [facility]#[address]-66(Srinath) Reviewed 05/05/2014 12:00 AM DRAIN/INJ JOINT/BURSA W/O US Reviewed 05/05/2014 12:00 AM SYNVISC-ONE, Per 1 Mg (6ml) [facility] [address]-25 Reviewed 05/06/2014 12:00 AM COMPREHEN METABOLIC PANEL [...] Reviewed 11/07/2010 12:00 AM Rocephin 500 mg [facility]#[address]-40 Reviewed 07/14/2014 12:00 AM Fluzone MEDICARE Only Reviewed 11/29/2010 12:00 AM INJECT TRIGGER POINTS 3/> Reviewed 11/29/2010 12:00 AM Kenalog per 10Mg [facility]#[address]-36(Srinath) Reviewed 07/14/2014 12:00 AM Decadron injection Reviewed [...] 3.40 g/dLCALCIUM 9.0 mg/dLPHOSPHORUS 3.30 mg/dLeGFR 42 History Of Immunizations Not available. History of [...] Knee,right Sep 2010 3:56PM Osteoarthrosis, lower leg Sep 2010 [...] Bilateral foot pain May 16 2015 9:32AM Payers Insurance Name Company Name Plan Name Plan Number Policy Number Policy Group Number Start Date Medicare Part A Medicare Part A [id number] N/A [employer] Medicare [employer] Ins [phone] N/A [place] Medical Assistance [facility] Medical Assistance Pro [id number] N/A Medicare Part B Medicare Of [place] [id number] Friday, 2008 History of Encounters Visit Date Visit Type Provider 05/16/2015 Office visit Katty CRAIG 05/16/2015 Office visit Melecio Wilkinson DO 05/09/2015 Office visit Melecio Wilkinson DO 04/26/2015 Office visit Katty CRAIG 04/08/2015 Office visit Melecio Wilkinson DO 04/07/2015 Voided Melecio Jaja DO 03/29/2015 Office visit Katty CRAIG 03/28/2015 Office visit Melecio Wilkinson DO 03/15/2015 Office visit Katty CRAIG 02/28/2015 Office visit Melecio Wilkinson DO 02/17/2015 Office visit Melecio Wilkinson DO 02/17/2015 Office visit Katty CRAIG 01/19/2015 Office visit Katty CRAIG 01/13/2015 Office visit Melecio Wilkinson DO 01/12/2015 Office visit Katty CRAIG 12/16/2014 [facility] Alfa Platt MD 12/14/2014 Voided Melecio Wilkinson DO 12/08/2014 Office visit Alfa Platt MD 12/08/2014 Office visit Melecio Wilkinson DO 12/07/2014 Nurse visit Riri Salazar MD 12/02/2014 [facility] Alfa Platt MD 12/02/2014 [facility] Magi Powers MD 11/29/2014 [facility] Magi Powers MD 11/29/2014 Voided Katty CRAIG 11/11/2014 Office visit Katty CRAIG 11/11/2014 Office visit Melecio Wilkinson DO 10/14/2014 Office visit Katty CRAIG 09/14/2014 Office visit Katty CRAIG 09/08/2014 [facility] Ama Barrios MD 09/07/2014 Office visit Melecio Wilkinson DO 08/16/2014 Nurse visit Katty CRAIG 07/19/2014 Office visit Katty CRAIG 07/14/2014 Office visit Melecio Wilkinson DO 06/21/2014 Office visit Katty Jefferson LACQUERER 05/20/2014 Office visit Melecio Cruzte DO 05/14/2014 Office visit Melecio Jaja DO 05/05/2014 Office visit Katty Jefferson LACQUERER 04/26/2014 Office visit Katty Jefferson LACQUERER 03/24/2014 Office visit Katty Jefferson LACQUERER 02/24/2014 Office visit Katty Jefferson LACQUERER 01/05/2014 Office visit Melecio Jaja DO 12/23/2013 Office visit Katty Jefferson LACQUERER 12/23/2013 Office visit Melecio Jaja DO 12/18/2013 Office visit Janis Navarrete COIN MACHINE ASSEMBLER 12/08/2013 Office visit Janis Navarrete COIN MACHINE ASSEMBLER 11/25/2013 Office visit Katty Jefferson LACQUERER 10/29/2013 Office visit Melecio Jaja DO 09/22/2013 Office visit Janis Navarrete COIN MACHINE ASSEMBLER 07/28/2013 Office visit Katty Jefferson LACQUERER 07/21/2013 Office visit Melecio Jaja DO 07/08/2013 Office visit Katty DURÁNP 05/06/2013 Office visit Melecio Wilkinson DO 04/07/2013 Office visit Gorge Yo MD 02/26/2013 Office visit Melecio Wilkinson DO 01/29/2013 Office visit Gorge Yo MD 01/06/2013 Office visit Gorge Yo MD 12/09/2012 [facility] Ama Barrios MD 12/09/2012 Office visit Stephanie Richardson COIN MACHINE ASSEMBLER 11/26/2012 Office visit Gorge Yo MD 10/30/2012 [facility] Gorge Yo MD 10/29/2012 Office visit Gorge Yo MD 10/09/2012 Office visit Melecio Wilkinson DO 08/19/2012 Office visit Melecio Wiklinson DO 08/04/2012 Office visit Melecio Wilkinson DO 07/24/2012 Office visit Gorge Yo MD 07/16/2012 Office visit Melecio Wilkinson DO 06/12/2012 Office visit Gorge Yo MD 06/05/2012 Office visit oGrge Yo MD 05/29/2012 Office visit Gorge Yo MD 05/19/2012 Office visit Melecio Wilkinson DO 05/14/2012 Office visit Gorge Yo MD 05/12/2012 [facility] DO 05/11/2012 [facility] DO 03/13/2012 Office visit Gorge Yo MD [...] 03/05/2011 Office visit Melecio Wilkinson DO 02/06/2011 [facility] Gorge Yo MD 01/08/2011 Office visit Melecio Wilkinson DO 12/27/2010 Office visit Gorge Yo MD 11/29/2010 Office visit Gorge Yo MD 11/07/2010 Office visit Melecio Wilkinson DO 09/28/2010 Office visit Gorge Yo MD 09/05/2010 [facility] Gorge Yo MD 08/28/2010 Office visit Gorge [...]
--- OUTSIDE RECORDS SUMMARY | 2018-01-22 12:08 | XMS REPORT ---
Author Author Melecio Wilkinson [facility] Address [address] [place] [phone] Care Team Providers Care School Counsellor Name Role Phone Melecio Wilkinson PCP Unavailable [...] 3 times per day with food Dr. Patetrson niacin 500 mg oral tablet take 1 [...] 2 times a day for 30 days gabapentin [...] per day with food for 90 days oxycodone 20 mg oral tablet 06/15/2015 07/15/2015 take 1 tablet (20 mg) by oral route every 4-6 hours for 30 days Lyrica 75 mg oral capsule 06/22/2015 08/21/2015 take 1 capsule by oral route 2 times a day for 30 days zolpidem 10 mg oral tablet 06/22/2015 [...] 30 days changed to Xalreto by Dr. Patterson Lidoderm 5 %(700 mg/patch) topical adhesive patch,medicated 02/08/20102011 [...] for 30 days Discontinued by Hospitalist at [facility] Augmentin 875-125 mg oral tablet 11/07/2010 03/05/2011 [...] HC BMI BSA BMI Percentile O2 Sat(%) 06/20/2015 2:12:00 PM 130 mmHg 76 mmHg [...] Reviewed 06/19/2011 12:00 AM Kenalog 40 Mg Im-[facility]#3477-0822-44 Reviewed 11/03/2009 12:00 AM PROTHROMBIN TIME Reviewed 07/26/2011 12:00 AM X-RAY EXAM OF ABDOMEN Reviewed 10/12/2011 12:00 AM EXTREMITY STUDY Reviewed 01/01/2012 12:00 AM Rocephin 1 gm [facility]#[address]-26 Reviewed 01/16/2012 12:00 AM DRAIN/INJ JOINT/BURSA W/O US Reviewed 01/16/2012 12:00 AM Kenalog per 10Mg Im[facility]#[address]-91(Srinath) Reviewed 02/05/2012 12:[address] ABDOMEN W/O & W/DYE Reviewed 02/05/2012 12:[address] PELVIS W/O & W/DYE Reviewed 05/29/2012 12:00 AM DRAIN/INJ JOINT/BURSA W/O US Reviewed 05/29/2012 12:00 AM SYNVISC, Per 1 Mg (2ml) [facility] [address]-61 Reviewed 06/05/2012 12:00 AM DRAIN/INJ JOINT/BURSA W/O US Reviewed 06/05/2012 12:00 AM SYNVISC, Per 1 Mg (2ml) [facility] [address]-93 Reviewed 06/12/2012 12:00 AM DRAIN/INJ JOINT/BURSA W/O US Reviewed 06/12/2012 12:00 AM SYNVISC, Per 1 Mg (2ml) [facility] [address]-29 Reviewed 07/16/2012 12:00 AM Hepatobiliary ductal system imaging with functional assessment Reviewed 07/16/2012 12:00 AM Decadron 8 mg [facility]#[id number] Reviewed 07/16/2012 12:00 AM Depo-Medrol 80mg [facility]#96753214292 Reviewed 07/16/2012 12:00 AM COMPREHEN METABOLIC PANEL Reviewed 07/16/2012 12:00 AM LIPID PANEL Reviewed 07/16/2012 12:00 AM Flu Injection 3 Years And Above [facility]# [address]-50 RHC Reviewed 08/19/2012 12:00 AM METABOLIC PANEL TOTAL CA Reviewed 12/21/2009 12:[address] ABDOMEN W/O & W/DYE Reviewed 10/02/2012 12:00 AM CHEST X-RAY 2VW FRONTAL&LATL Reviewed 10/09/2012 12:00 AM Decadron 8 mg [facility]#73935959681 Reviewed 10/09/2012 12:00 AM Depo-Medrol 80mg [facility]#41322134184 Reviewed 12/09/2012 12:00 AM CHEST X-RAY 2VW [...] 12:00 AM SYNVISC-ONE, Per 1 Mg (6ml) [facility] [address]-13 Reviewed 02/26/2013 12:[address] NECK SPINE W/O & W/DYE Reviewed 04/07/2013 12:00 AM INJECT TRIGGER POINTS 3/> Reviewed 04/07/2013 12:00 AM Kenalog per 10Mg [facility]#[address]-04(Srinath) Reviewed 07/21/2013 12:00 AM CHEST X-RAY 2VW FRONTAL&LATL Reviewed 07/21/2013 12:00 AM Decadron 8 mg [facility]# [address]-14 Reviewed 07/21/2013 12:00 AM Depo-Medrol 80 mg [facility]#[address]-54 Reviewed 07/21/2013 12:00 AM Rocephin 500 mg [facility]#9663-1252-47 Reviewed 09/22/2013 12:00 AM CHEST X-RAY 2VW FRONTAL&LATL Returned 10/29/2013 12:00 AM X-RAY EXAM OF ABDOMEN Reviewed 12/08/2013 12:00 AM THER/PROPH/DIAG INJ SC/IM Reviewed 12/08/2013 12:00 AM Decadron, Per 1 Mg [facility]# [address]-47 Reviewed 12/08/2013 12:00 AM Depo-Medrol, Per 80 Mg [facility]#7267-9981-18 Reviewed 12/08/2013 12:00 AM CHEST X-RAY 2VW [...] Returned 01/05/2014 12:00 AM Decadron 8 mg [facility]# [address]-96 Reviewed 01/05/2014 12:00 AM Depo-Medrol 80 mg [facility]#[address]-17 Reviewed 01/05/2014 12:00 AM Rocephin 1 gram [facility]#7040-2929-48 Reviewed 03/15/2010 12:00 AM PROTHROMBIN TIME Reviewed [...] Reviewed 09/28/2010 12:00 AM Kenalog per 10Mg [facility]#[address]-69(Srinath) Reviewed 05/05/2014 12:00 AM DRAIN/INJ JOINT/BURSA W/O US Reviewed 05/05/2014 12:00 AM SYNVISC-ONE, Per 1 Mg (6ml) [facility] [address]-73 Reviewed 05/06/2014 12:00 AM COMPREHEN METABOLIC PANEL [...] Reviewed 11/07/2010 12:00 AM Rocephin 500 mg [facility]#[address]-08 Reviewed 07/14/2014 12:00 AM Fluzone MEDICARE Only Reviewed 11/29/2010 12:00 AM INJECT TRIGGER POINTS 3/> Reviewed 11/29/2010 12:00 AM Kenalog per 10Mg [facility]#[address]-95(Srinath) Reviewed 07/14/2014 12:00 AM Decadron injection Reviewed [...] g/dLTOTAL BILI 0.30 mg/dLCALCIUM 9.40 mg/dLeGFR 31 History Of Immunizations Not available. History of [...] 2:04PM Cervicalgia Feb 2014 2:04PM Muscle Spasm Feb 2014 2:04PM Pain in joint; Knee,right b [...] Left elbow pain Jun 20 2015 2:14PM Payers Insurance Name Company Name Plan Name Plan Number Policy Number Policy Group Number Start Date Medicare Part A Medicare Part A [id number] N/A [employer] [place] [employer] Medicare [employer] Ins [phone] N/A [place] Medical Assistance [facility] Pro [id number] N/A Medicare Part B Medicare Of [place] [id number] Friday, 2008 History of Encounters Visit Date Visit Type Provider 06/20/2015 Office visit Melecio Wilkinson DO 06/15/2015 [...] MD 12/02/2014 [facility] Al[facility] Platt MD 12/02/2014 [facility] Magi Powers MD 11/29/2014 [facility] Magi Powers MD 11/29/2014 Voided Katty CRAIG 11/11/2014 Office visit Katty CRAIG 11/11/2014 Office visit Melecio Jaja DO 10/14/2014 Office visit Katty CRAIG 09/14/2014 Office visit Katty CRAIG 09/08/2014 [facility] Ama Barrios MD 09/07/2014 Office visit [...] Wilkinson DO 09/22/2013 Office visit Janis Navarrete TECHNICAL SPECIALIST CYTOLOGY 07/28/2013 Office visit Katty CRAIG 07/21/2013 Office visit Melecio Wilkinson DO 07/08/2013 Office visit Katty CRAIG 05/06/2013 Office visit Melecio Wilkinson DO 04/07/2013 Office visit Gorge Yo MD 02/26/2013 Office visit Melecio Wilkinson DO 01/29/2013 Office visit Gorge Yo MD 01/06/2013 Office visit Gorge Yo MD 12/09/2012 [facility] Ama Barrios MD 12/09/2012 Office visit Stephanie Richardson TECHNICAL SPECIALIST CYTOLOGY 11/26/2012 Office visit Gorge Yo MD 10/30/2012 [facility] Gorge Yo MD 10/29/2012 Office visit Gorge Yo MD 10/09/2012 Office visit Melecio Wilkinson DO 08/19/2012 Office visit Melecio Wilkinson DO 08/04/2012 Office visit Melecio Wilkinson DO 07/24/2012 Office visit Gorge Yo MD 07/16/2012 Office visit Melecio Wilkinson DO 06/12/2012 Office visit Gorge oY MD 06/05/2012 Office visit Gorge Yo MD 05/29/2012 Office visit Gorge Yo MD 05/19/2012 Office visit Melecio Wilkinson DO 05/14/2012 Office visit Gorge Yo MD 05/12/2012 [facility] DO 05/11/2012 [facility] DO 03/13/2012 Office visit Gorge Yo MD 02/05/2012 Office visit Melecio Wilkinson DO 01/31/2012 Office visit Gorge Yo MD 01/16/2012 Office visit Gorge Yo MD 01/01/2012 Office visit Melecio Wilkinson DO 11/16/2011 Office visit Gorge Yo MD 10/05/2011 Office visit Gorge Yo MD 10/01/2011 Office visit Janis Navarrete TECHNICAL SPECIALIST CYTOLOGY 09/06/2011 Office visit Gorge Yo MD 07/26/2011 [...] 04/06/2010 Office visit Gorge Yo MD 04/02/2010 [facility] Alfonso Camacho MD 03/31/2010 Laboratory Alfonso [...]
--- OUTSIDE RECORDS SUMMARY | 2018-01-22 12:12 | XMS REPORT ---
Author Author Melecio Wilkinson [facility] Address [address] [place], [place] [id number] Care Team Providers Care Transportation Consultant Name Role Phone Melecio Wilkinson PCP Unavailable [...] 30 days oxycodone 20 mg oral tablet 06/25/2017 07/25/2017 take 1 tablet by oral route q6h [...] for 30 days Discontinued by Hospitalist at [place] niacin 500 mg oral tablet 10/10/2016 take [...] 07/11/2015 12:00 AM Kenalog, Per 10 Mg [facility]#4217-3810-08 Reviewed 12/07/2014 12:00 AM OFFICE/OUTPATIENT VISIT EST Reviewed 06/19/2011 12:00 AM DRAIN/INJ JOINT/BURSA W/O US Reviewed 06/19/2011 12:00 AM Kenalog 40 Mg Im-Nd#7232-0411-53 Reviewed 08/25/2015 12:00 AM OFFICE/OUTPATIENT VISIT EST Reviewed 08/23/2015 12:00 AM Decadron, Per 1 Mg ND# [address]-95 Reviewed 08/23/2015 12:00 AM Depo-Medrol, Per 80 Mg ND#[address]-22 Reviewed 09/07/2015 12:00 AM X-RAY EXAM L-S [...] 10/23/2015 12:00 AM Decadron, Per 1 Mg [facility]# [address]-08 Reviewed 10/23/2015 12:00 AM Depo-Medrol, Per 80 Mg [facility]#[address]-62 Reviewed 07/26/2011 12:00 AM X-RAY EXAM OF ABDOMEN Reviewed 11/21/2015 12:00 AM Orthopedics Consultation Reviewed 11/21/2015 12:00 AM Physical Therapy Consultation Reviewed 12/20/2015 12:00 AM EXTREMITY STUDY Reviewed 10/12/2011 12:00 AM EXTREMITY STUDY Reviewed 05/10/2016 12:00 AM CONTRAST X-RAY OF SHOULDER Reviewed 07/09/2016 12:00 AM PNEUMOCOCCAL VACC 13 RIP IM Reviewed 08/08/2016 12:00 AM Decadron, Per 1 Mg [facility]# [address]-64 Reviewed 08/08/2016 12:00 AM Depo-Medrol, Per 80 Mg [facility]#[address]-04 Reviewed 01/01/2012 12:00 AM AIRWAY INHALATION TREATMENT Reviewed 01/01/2012 12:00 AM Rocephin 1 gm [facility]#[address]-71 Reviewed 01/16/2012 12:00 AM DRAIN/INJ JOINT/BURSA W/O US Reviewed 01/16/2012 12:00 AM Kenalog per 10Mg Im-[facility]#[address]-38(Srinath) Reviewed 09/26/2016 12:00 AM CHEST X-RAY 2VW [...] 12:00 AM SYNVISC, Per 1 Mg (2ml) [facility] [address]-37 Reviewed 06/05/2012 12:00 AM DRAIN/INJ JOINT/BURSA W/O US Reviewed 06/05/2012 12:00 AM SYNVISC, Per 1 Mg (2ml) [facility] [address]-71 Reviewed 06/12/2012 12:00 AM DRAIN/INJ JOINT/BURSA W/O US Reviewed 06/12/2012 12:00 AM SYNVISC, Per 1 Mg (2ml) [facility] [address]-21 Reviewed 06/06/2017 12:00 AM Decadron 4mg Injection Reviewed 06/06/2017 12:00 AM Depo-Medrol 40mg Injection Reviewed 06/06/2017 12:[address] ABD & PELV 1/> REGNS Reviewed 07/16/2012 12:00 AM Hepatobiliary ductal system imaging with functional assessment Reviewed 07/16/2012 12:00 AM Decadron 8 mg [facility]#[id number] Reviewed 07/16/2012 12:00 AM Depo-Medrol 80mg [facility]#[id number] Reviewed 07/16/2012 12:00 AM COMPREHEN METABOLIC PANEL Reviewed 07/16/2012 12:00 AM LIPID PANEL Reviewed 07/16/2012 12:00 AM Flu Injection 3 Years And Above [facility]# [address]-32 RHC Reviewed 08/19/2012 12:00 AM METABOLIC PANEL TOTAL CA Reviewed 12/21/2009 12:[address] ABDOMEN W/O & W/DYE Reviewed 10/02/2012 12:00 AM CHEST X-RAY 2VW FRONTAL&LATL Reviewed 10/09/2012 12:00 AM Decadron 8 mg [facility]#[id number] Reviewed 10/09/2012 12:00 AM Depo-Medrol 80mg [facility]#[id number] Reviewed 12/09/2012 12:00 AM CHEST X-RAY 2VW [...] 12:00 AM SYNVISC-ONE, Per 1 Mg (6ml) [facility] [address]-68 Reviewed 02/26/2013 12:00 AM Physical Therapy Reviewed 02/26/2013 12:[address] NECK SPINE W/O & W/DYE Reviewed 04/07/2013 12:00 AM INJECT TRIGGER POINTS 3/> Reviewed 04/07/2013 12:00 AM Kenalog per 10Mg [facility]#[address]-76(Srinath) Reviewed 07/21/2013 12:00 AM CHEST X-RAY 2VW FRONTAL&LATL Reviewed 07/21/2013 12:00 AM Decadron 8 mg [facility]# [address]-70 Reviewed 07/21/2013 12:00 AM Depo-Medrol 80 mg [facility]#[address]-51 Reviewed 07/21/2013 12:00 AM Rocephin 500 mg [facility]#3966-9792-36 Reviewed 09/22/2013 12:00 AM CHEST X-RAY 2VW FRONTAL&LATL Reviewed 10/29/2013 12:00 AM X-RAY EXAM OF ABDOMEN Reviewed 12/08/2013 12:00 AM THER/PROPH/DIAG INJ SC/IM Reviewed 12/08/2013 12:00 AM Decadron, Per 1 Mg [facility]# [address]-95 Reviewed 12/08/2013 12:00 AM Depo-Medrol, Per 80 Mg [facility]#3671-8715-33 Reviewed 12/08/2013 12:00 AM CHEST X-RAY 2VW [...] Reviewed 01/05/2014 12:00 AM Decadron 8 mg [facility]# [address]-09 Reviewed 01/05/2014 12:00 AM Depo-Medrol 80 mg [facility]#[address]-50 Reviewed 01/05/2014 12:00 AM Rocephin 1 gram [facility]#9611-2997-20 Reviewed 03/15/2010 12:00 AM PROTHROMBIN TIME Reviewed [...] Reviewed 09/28/2010 12:00 AM Kenalog per 10Mg [facility]#[address]-04(Srinath) Reviewed 05/05/2014 12:00 AM DRAIN/INJ JOINT/BURSA W/O US Reviewed 05/05/2014 12:00 AM SYNVISC-ONE, Per 1 Mg (6ml) [facility] [address]-24 Reviewed 05/06/2014 12:00 AM COMPREHEN METABOLIC PANEL [...] Reviewed 11/07/2010 12:00 AM Rocephin 500 mg [facility]#[address]-31 Reviewed 07/14/2014 12:00 AM Fluzone MEDICARE Only Reviewed 11/29/2010 12:00 AM INJECT TRIGGER POINTS 3/> Reviewed 11/29/2010 12:00 AM Kenalog per 10Mg [facility]#[address]-27(Srinath) Reviewed 07/14/2014 12:00 AM Decadron injection Reviewed [...] CVX Pneumococcal 07/09/2016 Emily DOHERTY Prevnar 13 [id number] Intramuscular Right Deltoid 07/09/2016 07/28/2015 133 History [...] Number Start Date Medicare RHC Medicare RHC [id number] N/A [employer] ID State Plan [facility] [id number] N/A [place] Life Medicare [facility] Life Ins [id number] N/A [place] Medical Assistance [facility] Medical [facility] Prog [id number] N/A Medicare Part B Medicare Of [place] [id number] Friday, February 22, 2008 Medicare Part A Medicare Part A [id number] N/A [facility] - RHC - [facility] RH Comm [id number] Wednesday, September 23, 2015 [employer] - RHC - ID State Plan [employer] - RHC ID State Plan [id number] Wednesday, September 23, 2015 Medicare Part A Medicare - Lab/Xray [id number] N/A History of Encounters Visit Date Visit Type Provider 07/22/2017 Office visit Melecio Wilkinson DO 06/06/2017 Office visit Melecio Wilkinson DO 04/03/2017 Office visit Melecio Wilkinson DO 03/28/2017 Office visit Melecio Wilkinson DO 03/11/2017 Office visit Melecio Wilkinson DO 03/05/2017 [facility] Ama Barrios MD 02/22/2017 Office visit Melecio Wilkinson DO 02/05/2017 Office visit Melecio Wilkinson DO 2017 [facility] Rasta Mckeon MD 2017 Hospital Ama [...] [facility] Magi Powers MD 11/29/2014 [facility] Magi Powers MD 11/29/2014 Voided [...] Katty CRAIG 04/26/2014 Office visit Katty Jefferson WORKFORCE DEVELOPMENT VICE PRESIDENT 03/24/2014 Office visit Katty Jefferson WORKFORCE DEVELOPMENT VICE PRESIDENT 02/24/2014 Office visit Katty Jefferson WORKFORCE DEVELOPMENT VICE PRESIDENT 01/05/2014 Office visit Melecio Wilkinson DO 12/23/2013 Office visit Katty Minerva Jefferson WORKFORCE DEVELOPMENT VICE PRESIDENT 12/23/2013 Office visit Melecio Wilkinson DO 12/18/2013 Office visit Janis Navarrete DYE HOUSE HAND 12/08/2013 Office visit Janis Navarrete DYE HOUSE HAND 11/25/2013 Office visit Katty Jefferson WORKFORCE DEVELOPMENT VICE PRESIDENT 10/29/2013 Office visit Melecio Wilkinson DO 09/22/2013 Office visit Janis Navarrete DYE HOUSE HAND 07/28/2013 Office visit Katty Jefferson WORKFORCE DEVELOPMENT VICE PRESIDENT 07/21/2013 Office visit Melecio Wilkinson DO 07/08/2013 Office visit Katty DURÁNP 05/06/2013 Office visit Melecio Wilkinson DO 04/07/2013 Office visit Gorge Yo MD 02/26/2013 Office visit Melecio Wilkinson DO 01/29/2013 Office visit Gorge Yo MD 01/06/2013 Office visit Gorge Yo MD 12/09/2012 [facility] Ama Barrios MD 12/09/2012 Office visit Stephanie Richardson DYE HOUSE HAND 11/26/2012 Office visit Gorge Yo MD 10/30/2012 [...] Yo MD 05/12/2012 [facility] DO 05/11/2012 [facility] DO 03/13/2012 Office visit Gorge Yo [...]
--- OUTSIDE RECORDS SUMMARY | 2018-01-22 12:17 | XMS REPORT | CCD ---
Author Author OLIMPIA HEREDIA Organization Unknown Address [address] [place] [address] Care Team Providers Care Polysomnographic Technologist Name Role Phone CHALO STRONG, IBIS Douglas Attphys S., VISHAL Nava NASST J., OTILIO NASST S., ROSE FINNEGAN NASST R., HALEY Nava NASST K., DOLORES Lugo NASST H., MARIANNE NASST G., BENITA NASST Allergies Allergy Code Allergy Type Reaction Status No Known Drug Allergies 0 Drug allergy Active Active Medications Medication Code Dose Units Frequency Route Modification Start Date/Time Terazosin HCl 5MG Oral Capsule 248223 5 MILLIGRAMS TWO TIMES A DAY BY MOUTH 07/06/2016 15:51 Prescription Detail 5 MILLIGRAMS BY MOUTH TWO TIMES A DAY Allopurinol 100MG Oral Tablet 353098 1.5 TABLET DAILY ORAL 07/06/2016 15:46 Prescription Detail 1.5 TABLET ORAL DAILY Carvedilol 25MG Oral Tablet 018338 25 MILLIGRAMS TWO TIMES A DAY ORAL 07/06/2016 15:46 Prescription Detail 25 MILLIGRAMS ORAL TWO TIMES A DAY Lipitor 40MG Oral Tablet 372245 40 MILLIGRAMS DAILY ORAL 07/06/2016 15:46 Prescription Detail 40 MILLIGRAMS ORAL DAILY Methocarbamol 750MG Oral Tablet 590146 750 MILLIGRAMS NEEDED EVERY 6 HR ORAL 07/06/2016 15:46 Prescription Detail 750 MILLIGRAMS ORAL NEEDED EVERY 6 HR oxyCODONE HCl 20MG Oral Tablet 8823035 20 MILLIGRAMS NEEDED EVERY 4 HR ORAL 07/06/2016 15:46 Prescription Detail 20 MILLIGRAMS ORAL NEEDED EVERY 4 HR oxyCODONE HCl 30MG Oral Tablet, Extended Release 7009040 30 MILLIGRAMS EVERY 12 HOURS ORAL 07/06/2016 15: 46 Prescription Detail 30 MILLIGRAMS ORAL EVERY 12 HOURS SODIUM BICARBONATE 10 GR 0 0.5 TABLET TWO TIMES A DAY ORAL 07/06/2016 15:46 Prescription Detail 0.5 TABLET ORAL TWO TIMES A DAY Sucralfate 1GM Oral Tablet 362735 1 GM WITH EACH MEAL ORAL 07/06/2016 15:46 Prescription Detail 1 GM ORAL WITH EACH MEAL Albuterol Sulfate 0.083% Inhalation Solution 707739 1 EACH FOUR TIMES A DAY INHALATION 12/02/2014 13:01 Prescription Detail 1 EACH INHALATION FOUR TIMES A DAY Lisinopril 20MG Oral Tablet 623863 1 TABLET DAILY BY MOUTH 12/02/2014 13:01 Prescription Detail 1 TABLET BY MOUTH DAILY Omeprazole 40MG Oral Capsule, Delayed Release 131010 40 MILLIGRAMS DAILY ORAL 12/02/2014 13:01 Prescription Detail 40 MILLIGRAMS ORAL DAILY Digoxin 0.125MG Oral Tablet 644627 0.125 MILLIGRAMS DAILY ORAL 03/17/2014 15:16 Prescription Detail 0.125 MILLIGRAMS ORAL DAILY Loratadine 10MG Oral Tablet 122784 10 MILLIGRAMS DAILY ORAL 03/17/2014 15:16 Prescription Detail 10 MILLIGRAMS ORAL DAILY Symbicort 160MCG/Actuation-4.5 Inhalation Aerosol Liquid 4615562 1 EACH TWO TIMES A DAY INHALATION 2013 15:16 Prescription Detail 1 EACH INHALATION TWO TIMES A DAY Tamsulosin Hydrochloride 0.4MG Oral Capsule 772299 0.4 MILLIGRAMS DAILY ORAL 03/17/2014 15:16 Prescription Detail 0.4 MILLIGRAMS ORAL DAILY Xarelto 20MG Oral Tablet 5350890 20 MILLIGRAMS DAILY ORAL 03/17/2014 15:16 Prescription Detail 20 MILLIGRAMS ORAL DAILY Zolpidem 10MG Oral Tablet 682645 10 MILLIGRAMS DAILY ORAL 03/17/2014 15:16 Prescription Detail 10 MILLIGRAMS ORAL DAILY Problems Problem Code Start Date Resolved Date Status Rotator cuff tear of left shoulder, not specified as traumatic 5210666 07/05/2016 Active Hypertension 64981113 07/06/2016 Active CAP (COMMUNITY ACQUIRED PNEUMONIA) 786895264 05/11/2012 Resolved COPD EXACERBATION 25459 05/11/2012 07/06/2016 Resolved Procedures Procedure Code Procedure Type Date Repair Left Shoulder Tendon, Percutaneous Endoscopic Approach [id number] ICD-10 PCS 07/05/2016 Excision of Left Shoulder Joint, Percutaneous Endoscopic Approach [id number] ICD-10 PCS 07/05/2016 Division of Left Shoulder Tendon, Percutaneous Endoscopic Approach [id number] ICD-10 PCS 07/05/2016 CX CHEST [address] 07/06/2016 TROPONIN-I ADV 845747285 SNOMED CT 07/06/2016 COMPREHENSIVE METABOLIC PANEL 926478224 SNOMED CT [address] 07/06/[address] 07/06/[address] 07/06/2016 BASIC METABOLIC PANEL 094751024 OMED CT 07/06/2016 CBC W/ AUTO DIFF (RFLX MAN DIFF IF IND) 7004033 OMED CT 07/06/2016 ^CBC W/ MANUAL DIFF 82489207 OMED CT 07/06/2016 .ECG STANDARD 12 LEAD (LAB) 808625139 OMED CT 2015 .ECG STANDARD 12 LEAD (LAB) 055324834 SNOMED CT 2015 BAN AERO ECLIPSE TREATMENT 47088336 SNOMED CT 07/06/2016 BAN AERO ECLIPSE TREATMENT 34607139 SNOMED CT 07/06/2016 BAN AERO ECLIPSE TREATMENT 88180712 SNOMED CT 07/05/2016 BAN AERO ECLIPSE TREATMENT 04934908 SNOMED CT 07/05/2016 Results BASIC METABOLIC PANEL - Collect Date/Time: 07/06/2016 06:10 Test Name Code Test Result Test Units Test Ref Range GLUCOSE 2345-7 126 MG/DL L=70 H=100 SODIUM 2951-2 139 MEQ/L L=135 H=148 POTASSIUM 2823-3 3.9 MEQ/L L=3.5 H=5.3 CHLORIDE 2075-0 105 MEQ/L L=96 H=110 CO2 2028-9 23 MEQ/L L=22 H=29 BUN 3094-0 21 MG/DL L=8 H=22 CREATININE 2160-0 1.3 MG/DL L=0.6 H=1.6 CALCIUM 70856-5 8.6 MG/DL L=8.2 H=10.6 AGE [birth year]-5 56 yrs GFR NonAA 60761-7 57 GFR AA 58724-8 69 eGFR 82677-7 57 mL/min/1.7 eGFR AA* 83188-8 >60 N/A COMPREHENSIVE METABOLIC PANEL - Collect Date/Time: 07/06/2016 06:10 Test Name Code Test Result Test Units Test Ref Range GLUCOSE 2345-7 126 MG/DL L=70 H=100 SODIUM 2951-2 139 MEQ/L L=135 H=148 POTASSIUM 2823-3 3.9 MEQ/L L=3.5 H=5.3 CHLORIDE 2075-0 105 MEQ/L L=96 H=110 CO2 2028-9 23 MEQ/L L=22 H=29 BUN 3094-0 21 MG/DL L=8 H=22 CREATININE 2160-0 1.3 MG/DL L=0.6 H=1.6 SGOT/AST 1920-8 9 IU/L L=10 H=40 SGPT/ALT 1742-6 7 IU/L L=8 H=54 ALK PHOS 6768-6 101 IU/L L=35 H=115 TOTAL PROTEIN 2885-2 6.5 G/DL L=5.5 H=8.5 ALBUMIN 1751-7 3.2 G/DL L=3.1 H=5.4 TOTAL BILI 1975-2 0.4 MG/DL L=0.0 H=1.5 CALCIUM 23965-5 8.6 MG/DL L=8.2 H=10.6 AGE 05[birth year]-3 56 yrs GFR NonAA 28148-8 57 GFR AA 93996-3 69 eGFR 09618-9 57 mL/min/1.7 eGFR AA* 80161-5 >60 N/A MAGNESIUM - Collect Date/Time: 07/06/2016 07:04 Test Name Code Test Result Test Units Test Ref Range MAGNESIUM 99160-7 1.6 MG/DL L=1.7 H=2.8 PHOSPHORUS - Collect Date/Time: 07/06/2016 07:04 Test Name Code Test Result Test Units Test Ref Range PHOSPHORUS 2777-1 3.1 MG/DL L=2.5 H=4.5 CBC W/ AUTO DIFF (RFLX MAN DIFF IF IND) - Collect Date/Time: 07/06/2016 06:10 Test Name Code Test Result Test Units Test Ref Range WBC 03838-2 13.8 TH/CMM L=4.5 H=10.8 RBC 789-8 3.99 ML/CMM L=4.70 H=6.10 HGB 718-7 10.8 G/DL L=14.0 H=18.0 HCT 4544-3 34.1 % L=42.0 H=52.0 MCV 51766-0 86 FL L=81 H=99 MCH 68511-7 27.1 PG L=27.0 H=33.0 MCHC 33289-5 31.7 G/DL L=31.0 H=36[place]0 [place] [address]-7 51 FL L=36 H=50 [place] [address]-3 16.6 % L=0.0 H=14.8 MPV 43976-9 9.8 FL L=9.3 H=12.5 PLT 777-3 265 TH/CMM L=130 H=440 NRBC# 22274-3 0.00 TH/CMM L=0.00 H=0.00 NRBC% 00519-4 0.0 /100WBC L=0.0 H=2.0 %NEUT 35908-9 86.9 % %LYMP 38688-3 4.9 % %MONO 46637-5 7.4 % %EOS 15944-0 0.0 % %BASO 46324-9 0.1 % #NEUT 89846-3 11.99 TH/CMM L=2.10 H=8.20 #LYMP 98646-2 0.68 TH/CMM L=0.90 H=5.20 #MONO 24517-3 1.02 TH/CMM L=0.16 H=1.00 #EOS 11167-6 0.00 TH/CMM L=0.00 H=0.80 #BASO 69068-9 0.01 TH/CMM L=0.00 H=0.20 SEGS 67611-6 88 % BANDS 55153-9 6 % LYMPHS 70849-1 3 % MONOS 52458-8 3 % MANUAL DIFF 66787-8 SEE BELOW N/A ANISO 79160-8 1+ N/A HYPO 15620-9 1+ N/A TROPONIN-I ADV - Collect Date/Time: 07/06/2016 06:10 Test Name Code Test Result Test Units [place] [address]-0 <0.04 ng/mL L=0.04 H= 0.40 TSH - Collect Date/Time: 07/06/2016 07:05 Test Name Code Test Result Test Units Test Ref Range TSH 80213-2 0.37 mIU/L L=0.35 H=4.94 Function Status Unknown or Not Available. History of Immunizations Immunization Code Date Pneumococcal conjugate PCV 13 133 07/09/2016 influenza, injectable, quadrivalent, preservative free 150 2015 Plan of Treatment Unknown or Not Available. Social History Smoking Status Code Start Date End Date Current every day smoker [id number] Vital Signs Vital Sign Value Unit Date/Time Recent/Initial? Weight Measured 252 [lb_av] 07/03/2016 13:22 Initial VS Height 67 [in_i] 07/03/2016 13:22 Initial VS BMI (Body Mass Index) 39.47 kg/m2 07/03/2016 13:22 Initial VS BSA (Body Surface Area) 2.32 m2 07/03/2016 13:22 Initial VS Heart Rate 94 /min 07/05/2016 11:43 Initial VS O2 % BldC Oximetry 86 % 07/05/2016 11:43 Initial VS BP Systolic 154 mm[Hg] 07/05/2016 11:44 Initial VS BP Diastolic 93 mm[Hg] 07/05/2016 11:44 Initial VS Respiratory Rate 7 /min 07/05/2016 11:44 Initial VS Body Temperature 97.9 [degF] 07/05/2016 13:05 Initial VS BP Systolic 140 mm[Hg] 07/06/2016 10:45 Most Recent VS BP Diastolic 70 mm[Hg] 07/06/2016 10:45 Most Recent VS Respiratory Rate 16 /min 07/06/2016 10:45 Most Recent VS Heart Rate 79 /min 07/06/2016 10:45 Most Recent VS O2 % BldC Oximetry 100 % 07/06/2016 10:45 Most Recent VS Body Temperature 97.5 [degF] 07/06/2016 10:45 Most Recent VS Function Status Unknown or Not Available. Goals Unknown or Not Available. ASSESSMENTS Unknown or Not Available. Health Concerns Section Unknown or Not Available.
--- OUTSIDE RECORDS SUMMARY | 2018-01-22 12:17 | XMS REPORT ---
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 Role Phone Melecio Wilkinson PCP Unavailable [...] route every 12 hours May fill 08/01/16 albuterol sulfate 2.5 mg /3 mL (0.083 %) inhalation solution for nebulization 09/25/2016 USE 1 VIAL IN NEBULIZER FOUR TIMES DAILY guaifenesin 600 mg oral tablet extended release 12hr 09/26/2016 take 1 tablet (600 mg) by oral route every 12 hours Augmentin 500-125 mg oral tablet 09/26/2016 take 1 tablet by oral route every 12 hours prednisone 20 mg oral tablet 09/26/2016 take 2 tablets (40 mg) by mouth once daily for 3 days 1 tablet (20 mg) once daily for 3 days then 0.5 tablet ( 10 mg) daily for 2 days Name Start Date Expiration [...] for 30 days Discontinued by Hospitalist at [place] Augmentin 875-125 mg oral tablet 11/07/2010 03/05/2011 [...] route every 12 hours for 30 days [place] stoned Problem List Description Status Onset SI [...] HC BMI BSA BMI Percentile O2 Sat(%) 09/26/2016 8:45:00 AM 120 mmHg 66 mmHg [...] 07/11/2015 12:00 AM Kenalog, Per 10 Mg [facility]#6334-9261-64 Reviewed 06/19/2011 12:00 AM DRAIN/INJ JOINT/BURSA W/O US Reviewed 06/19/2011 12:00 AM Kenalog 40 Mg [facility]#8495-5406-73 Reviewed 08/25/2015 12:00 AM OFFICE/OUTPATIENT VISIT EST Reviewed 08/23/2015 12:00 AM Decadron, Per 1 Mg [facility]# [address]-34 Reviewed 08/23/2015 12:00 AM Depo-Medrol, Per 80 Mg [facility]#[address]-21 Reviewed 09/07/2015 12:00 AM X-RAY EXAM L-S [...] 08/08/2016 12:00 AM Decadron, Per 1 Mg [facility]# [address]-66 Reviewed 08/08/2016 12:00 AM Depo-Medrol, Per 80 Mg [facility]#[address]-96 Reviewed 01/01/2012 12:00 AM Rocephin 1 gm [facility]#[address]-55 Reviewed 09/26/2016 12:00 AM CHEST X-RAY 2VW FRONTAL&LATL Returned 01/16/2012 12:00 AM DRAIN/INJ JOINT/BURSA W/O US Reviewed 01/16/2012 12:00 AM Kenalog per 10Mg [facility]#[address]-60(Srinath) Reviewed 02/05/2012 12:[address] ABDOMEN W/O & W/DYE Reviewed 02/05/2012 12:[address] PELVIS W/O & W/DYE Reviewed 05/29/2012 12:00 AM DRAIN/INJ JOINT/BURSA W/O US Reviewed 05/29/2012 12:00 AM SYNVISC, Per 1 Mg (2ml) [facility] [address]-11 Reviewed 06/05/2012 12:00 AM DRAIN/INJ JOINT/BURSA W/O US Reviewed 06/05/2012 12:00 AM SYNVISC, Per 1 Mg (2ml) [facility] [address]-52 Reviewed 06/12/2012 12:00 AM DRAIN/INJ JOINT/BURSA W/O US Reviewed 06/12/2012 12:00 AM SYNVISC, Per 1 Mg (2ml) [facility] [address]-63 Reviewed 07/16/2012 12:00 AM Hepatobiliary ductal system imaging with functional assessment Reviewed 07/16/2012 12:00 AM Decadron 8 mg [facility]#[id number] Reviewed 07/16/2012 12:00 AM Depo-Medrol 80mg [facility]#[id number] Reviewed 07/16/2012 12:00 AM COMPREHEN METABOLIC PANEL Reviewed 07/16/2012 12:00 AM LIPID PANEL Reviewed 07/16/2012 12:00 AM Flu Injection 3 Years And Above [facility]# [address]-56 RHC Reviewed 08/19/2012 12:00 AM METABOLIC PANEL TOTAL CA Reviewed 12/21/2009 12:[address] ABDOMEN W/O & W/DYE Reviewed 10/02/2012 12:00 AM CHEST X-RAY 2VW FRONTAL&LATL Reviewed 10/09/2012 12:00 AM Decadron 8 mg [facility]#[id number] Reviewed 10/09/2012 12:00 AM Depo-Medrol 80mg [facility]#[id number] Reviewed 12/09/2012 12:00 AM CHEST X-RAY 2VW [...] 12:00 AM SYNVISC-ONE, Per 1 Mg (6ml) [facility] [address]-74 Reviewed 02/26/2013 12:[address] NECK SPINE W/O & W/DYE Reviewed 04/07/2013 12:00 AM INJECT TRIGGER POINTS 3/> Reviewed 04/07/2013 12:00 AM Kenalog per 10Mg [facility]#[address]-14(Srinath) Reviewed 07/21/2013 12:00 AM CHEST X-RAY 2VW FRONTAL&LATL Reviewed 07/21/2013 12:00 AM Decadron 8 mg [facility]# [address]-89 Reviewed 07/21/2013 12:00 AM Depo-Medrol 80 mg [facility]#[address]-68 Reviewed 07/21/2013 12:00 AM Rocephin 500 mg [facility]#0294-8800-98 Reviewed 09/22/2013 12:00 AM CHEST X-RAY 2VW FRONTAL&LATL Reviewed 10/29/2013 12:00 AM X-RAY EXAM OF ABDOMEN Reviewed 12/08/2013 12:00 AM THER/PROPH/DIAG INJ SC/IM Reviewed 12/08/2013 12:00 AM Decadron, Per 1 Mg [facility]# [address]-55 Reviewed 12/08/2013 12:00 AM Depo-Medrol, Per 80 Mg [facility]#8104-1435-70 Reviewed 12/08/2013 12:00 AM CHEST X-RAY 2VW [...] Reviewed 01/05/2014 12:00 AM Decadron 8 mg [facility]# [address]-95 Reviewed 01/05/2014 12:00 AM Depo-Medrol 80 mg [facility]#[address]-17 Reviewed 01/05/2014 12:00 AM Rocephin 1 gram [facility]#1912-1586-38 Reviewed 03/15/2010 12:00 AM PROTHROMBIN TIME Reviewed [...] Reviewed 09/28/2010 12:00 AM Kenalog per 10Mg [facility]#[address]-01(Srinath) Reviewed 05/05/2014 12:00 AM DRAIN/INJ JOINT/BURSA W/O US Reviewed 05/05/2014 12:00 AM SYNVISC-ONE, Per 1 Mg (6ml) [facility] [address]-00 Reviewed 05/06/2014 12:00 AM COMPREHEN METABOLIC PANEL [...] Reviewed 11/07/2010 12:00 AM Rocephin 500 mg [facility]#[address]-49 Reviewed 07/14/2014 12:00 AM Fluzone MEDICARE Only Reviewed 11/29/2010 12:00 AM INJECT TRIGGER POINTS 3/> Reviewed 11/29/2010 12:00 AM Kenalog per 10Mg [facility]#[address]-29(Srinath) Reviewed 07/14/2014 12:00 AM Decadron injection Reviewed [...] CVX Pneumococcal 07/09/2016 [facility] Prevnar 13 [id number] Intramuscular Right Deltoid 07/09/2016 07/28/2015 133 History [...] to infectious organism Sep 26 2016 8:48AM Payers Insurance Name Company Name Plan Name Plan Number Policy Number Policy Group Number Start Date Medicare Part A Medicare C [id number] N/A [facility] - [place] State Plan [facility] - [place] State Plan [id number] Wednesday, 2015 Medicare Part A Medicare - Lab/Xray [id number] N/A [facility] [id number] N/A [employer] [place] [employer] [place] [employer] Ins [phone] N/A [place] Medical Assistance [facility] Medical Assistance Prog [id number] N/A Medicare Part B Medicare Of [place] [id number] Friday, February 22, 2008 Medicare Part A Medicare Part A [id number] N/A [facility] Comm [id number] Wednesday, September 23, 2015 History of Encounters Visit Date Visit Type Provider 09/26/2016 Office visit Melecio Wilkinson DO 08/28/2016 [...] Melecio Wilkinson DO 10/17/2015 Office visit Melecio Jaja DO 09/26/2015 Office visit Melecio Jaja DO 09/07/2015 Office visit Katty CRAIG 08/25/2015 Nurse visit Katty CRAIG 08/23/2015 Office visit Melecio Wilkinson DO 08/08/2015 Office visit Melecio Jaja DO [...] [facility] Voided Katty CRAIG [...] visit Katty CRAIG 12/23/2013 Office visit Melecio Cruzte DO 12/18/2013 Office visit Janis Navarrete CERTIFIED INDOOR ENVIRONMENTALIST 12/08/2013 Office visit Janis Navarrete CERTIFIED INDOOR ENVIRONMENTALIST 11/25/2013 Office visit aKtty DURÁNP 10/29/2013 Office visit Melecio Wilkinson DO 09/22/2013 Office visit Janis Navarrete CERTIFIED INDOOR ENVIRONMENTALIST 07/28/2013 Office visit Katty DURÁNP 07/21/2013 Office visit Melecio Wilkinson DO 07/08/2013 Office visit Katty CRAIG 05/06/2013 Office visit eMlecio Wilkinson DO 04/07/2013 Office visit Gorge Yo MD 02/26/2013 Office visit Melecio Wilkinson DO 01/29/2013 Office visit Gorge Yo MD 01/06/2013 Office visit Gorge Yo MD 12/09/2012 [facility] Ama Barrios MD 12/09/2012 Office visit Stephanie Richardson CERTIFIED INDOOR ENVIRONMENTALIST 11/26/2012 Office visit Gorge Yo MD 10/30/2012 [facility] Gorge oY MD 10/29/2012 Office visit Gorge Yo MD [...] Yo MD 10/01/2011 Office visit Janis Navarrete CERTIFIED INDOOR ENVIRONMENTALIST 09/06/2011 Office visit Gorge Yo MD 07/26/2011 [...]
--- OUTSIDE RECORDS SUMMARY | 2018-01-22 12:20 | XMS REPORT ---
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 Name Role Phone Melecio Wilkinson PCP Melecio [...] TABLET BY MOUTH TWICE DAILY WITH FOOD albuterol sulfate 2.5 mg /3 mL (0.083 [...] by oral route every 8 hours oxycodone 30 mg oral tablet,oral only,ext.rel.12 hr 08/09/2017 09/08/2017 take 1 tablet (30 mg) by oral route every 8 hours for 30 days midodrine 5 mg oral tablet 08/16/2017 02/12/2018 [...] 5 days Levaquin 500 mg oral tablet 08/27/2017 take 1 tablet (500 mg) by oral route once daily for 7 days oxycodone 20 mg oral tablet 08/27/2017 09/26/2017 take 1 tablet by oral route q6h [...] per day after meals for 2 days zolpidem 10 mg oral tablet 06/20/2017 08/19/2017 take 1 tablet (10 mg) by oral route once daily at bedtime for 30 days Discontinued Name Start Date [...] 07/11/2015 12:00 AM Kenalog, Per 10 Mg [facility]#5781-3824-34 Reviewed 12/07/2014 12:00 AM OFFICE/OUTPATIENT VISIT EST Reviewed 06/19/2011 12:00 AM DRAIN/INJ JOINT/BURSA W/O US Reviewed 06/19/2011 12:00 AM Kenalog 40 Mg [facility]#0750-1177-48 Reviewed 08/25/2015 12:00 AM OFFICE/OUTPATIENT VISIT EST Reviewed 08/23/2015 12:00 AM Decadron, Per 1 Mg [facility]# [address]-38 Reviewed 08/23/2015 12:00 AM Depo-Medrol, Per 80 Mg [facility]#[address]-17 Reviewed 09/07/2015 12:00 AM X-RAY EXAM L-S [...] 10/23/2015 12:00 AM Decadron, Per 1 Mg [facility]# [address]-43 Reviewed 10/23/2015 12:00 AM Depo-Medrol, Per 80 Mg [facility]#[address]-16 Reviewed 07/26/2011 12:00 AM X-RAY EXAM OF ABDOMEN Reviewed 11/21/2015 12:00 AM Orthopedics Consultation Reviewed 11/21/2015 12:00 AM Physical Therapy Consultation Reviewed 12/20/2015 12:00 AM EXTREMITY STUDY Reviewed 10/12/2011 12:00 AM EXTREMITY STUDY Reviewed 05/10/2016 12:00 AM CONTRAST X-RAY OF SHOULDER Reviewed 07/09/2016 12:00 AM PNEUMOCOCCAL VACC 13 RIP IM Reviewed 08/08/2016 12:00 AM Decadron, Per 1 Mg [facility]# [address]-13 Reviewed 08/08/2016 12:00 AM Depo-Medrol, Per 80 Mg [facility]#[address]-16 Reviewed 01/01/2012 12:00 AM AIRWAY INHALATION TREATMENT Reviewed 01/01/2012 12:00 AM Rocephin 1 gm [facility]#[address]-44 Reviewed 01/16/2012 12:00 AM DRAIN/INJ JOINT/BURSA W/O US Reviewed 01/16/2012 12:00 AM Kenalog per 10Mg [facility]#[address]-43(Srinath) Reviewed 09/26/2016 12:00 AM CHEST X-RAY 2VW [...] 12:00 AM SYNVISC, Per 1 Mg (2ml) [facility] [address]-53 Reviewed 06/05/2012 12:00 AM DRAIN/INJ JOINT/BURSA W/O US Reviewed 06/05/2012 12:00 AM SYNVISC, Per 1 Mg (2ml) [facility] [address]-79 Reviewed 06/12/2012 12:00 AM DRAIN/INJ JOINT/BURSA W/O US Reviewed 06/12/2012 12:00 AM SYNVISC, Per 1 Mg (2ml) [facility] [address]-62 Reviewed 06/06/2017 12:00 AM Decadron 4mg Injection Reviewed 06/06/2017 12:00 AM Depo-Medrol 40mg Injection Reviewed 06/06/2017 12:[address] ABD & PELV 1/> REGNS Reviewed 07/16/2012 12:00 AM Hepatobiliary ductal system imaging with functional assessment Reviewed 07/16/2012 12:00 AM Decadron 8 mg [facility]#[id number] Reviewed 07/16/2012 12:00 AM Depo-Medrol 80mg [facility]#[id number] Reviewed 07/16/2012 12:00 AM COMPREHEN METABOLIC PANEL Reviewed 07/16/2012 12:00 AM LIPID PANEL Reviewed 07/16/2012 12:00 AM Flu Injection 3 Years And Above [facility]# [address]-81 RHC Reviewed 08/19/2012 12:00 AM METABOLIC PANEL TOTAL CA Reviewed 12/21/2009 12:[address] ABDOMEN W/O & W/DYE Reviewed 10/02/2012 12:00 AM CHEST X-RAY 2VW FRONTAL&LATL Reviewed 10/09/2012 12:00 AM Decadron 8 mg [facility]#[id number] Reviewed 10/09/2012 12:00 AM Depo-Medrol 80mg [facility]#[id number] Reviewed 12/09/2012 12:00 AM CHEST X-RAY 2VW [...] 12:00 AM SYNVISC-ONE, Per 1 Mg (6ml) [facility] [address]-13 Reviewed 02/26/2013 12:00 AM Physical Therapy Reviewed 02/26/2013 12:[address] NECK SPINE W/O & W/DYE Reviewed 04/07/2013 12:00 AM INJECT TRIGGER POINTS 3/> Reviewed 04/07/2013 12:00 AM Kenalog per 10Mg [facility]#[address]-00(Srinath) Reviewed 07/21/2013 12:00 AM CHEST X-RAY 2VW FRONTAL&LATL Reviewed 07/21/2013 12:00 AM Decadron 8 mg [facility]# [address]-57 Reviewed 07/21/2013 12:00 AM Depo-Medrol 80 mg [facility]#[address]-39 Reviewed 07/21/2013 12:00 AM Rocephin 500 mg [facility]#4208-2451-72 Reviewed 09/22/2013 12:00 AM CHEST X-RAY 2VW FRONTAL&LATL Reviewed 10/29/2013 12:00 AM X-RAY EXAM OF ABDOMEN Reviewed 12/08/2013 12:00 AM THER/PROPH/DIAG INJ SC/IM Reviewed 12/08/2013 12:00 AM Decadron, Per 1 Mg [facility]# [address]-91 Reviewed 12/08/2013 12:00 AM Depo-Medrol, Per 80 Mg [facility]#8628-7256-69 Reviewed 12/08/2013 12:00 AM CHEST X-RAY 2VW [...] Reviewed 01/05/2014 12:00 AM Decadron 8 mg [facility]# [address]-58 Reviewed 01/05/2014 12:00 AM Depo-Medrol 80 mg [facility]#[address]-47 Reviewed 01/05/2014 12:00 AM Rocephin 1 gram [facility]#2324-5880-03 Reviewed 03/15/2010 12:00 AM PROTHROMBIN TIME Reviewed [...] Kenalog per 10Mg [facility]#[address]-70(Srinath) Reviewed 05/05/2014 12:00 AM DRAIN/INJ JOINT/BURSA W/O US Reviewed 05/05/2014 12:00 AM SYNVISC-ONE, Per 1 Mg (6ml) [facility] [address]-02 Reviewed 05/06/2014 12:00 AM COMPREHEN METABOLIC PANEL [...] Reviewed 11/07/2010 12:00 AM Rocephin 500 mg [facility]#[address]-94 Reviewed 07/14/2014 12:00 AM Fluzone MEDICARE Only Reviewed 11/29/2010 12:00 AM INJECT TRIGGER POINTS 3/> Reviewed 11/29/2010 12:00 AM Kenalog per 10Mg [facility]#[address]-30(Srinath) Reviewed 07/14/2014 12:00 AM Decadron injection Reviewed [...] CVX Pneumococcal 07/09/2016 [facility] Prevnar 13 [id number] Intramuscular Right Deltoid 07/09/2016 07/28/2015 133 History [...] knee May 29 2012 9:42AM Osteoarthritis, knee May 13 2011 9:44AM Osteoarthritis, knee Sep 2011 [...] Number Start Date Medicare RHC Medicare RHC [id number] N/[place] [employer] [place] [employer] [place] [id number] N/A [place] [employer] [place] [employer] Ins [id number] N/A [place] [employer] [place] Prog [id number] N/A Medicare Part B Medicare Of [place] [id number] Friday, 2008 Medicare Part A Medicare Part A [id number] N/A [facility] Comm [id number] Wednesday, 2015 [employer] - [place] State [place] [employer] [place] [id number] Wednesday, 2015 Medicare Part A Medicare - Lab/Xray [id number] N/A History of Encounters Visit Date Visit Type Provider 08/27/2017 Office visit Melecio Jaja DO 07/22/2017 Office visit Melecio Jaja DO 06/06/2017 Office visit Melecio Jaja DO 04/03/2017 Office visit Melecio Jaja DO 03/28/2017 [...] 05/14/2012 Office visit Gorge Yo MD 05/12/2012 [facility] DO 05/11/2012 [facility] DO 03/13/2012 Office visit Gorge Yo MD [...] 03/05/2011 Office visit Melecio Wilkinson DO 02/06/2011 [facility] Gorge Yo MD 01/08/2011 Office visit Melecio Wilkinson DO 12/27/2010 Office visit Gorge Yo MD 11/29/2010 Office visit Gorge Yo MD 11/07/2010 Office visit Melecio Wilkinson DO 09/28/2010 Office visit Gorge Yo MD 09/05/2010 [facility] Gorge Yo MD 08/28/2010 Office visit Gorge Yo MD 08/07/2010 Office visit Janis Navarrete APRN 07/25/2010 Office visit Melecio Wilknison DO 06/27/2010 Office visit Gorge Yo MD 06/14/2010 Office visit Melecio Wilkinson DO 06/06/2010 Laboratory Alfonso Camacho MD 06/01/2010 Office visit Melecio Wilkinson DO 04/17/2010 Office visit Melecio Wilkinson DO 04/06/2010 Office visit Gorge Yo MD 04/02/2010 [facility] Alfonso Camacho MD 03/31/2010 Laboratory Alfonos Camacho MD 03/31/2010 Laboratory Alfonso Camacho MD 03/31/2010 [facility] Alfonso Camacho MD 03/21/2010 Procedures Gorge [...]
--- OUTSIDE RECORDS SUMMARY | 2018-01-22 12:25 | XMS REPORT ---
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 Name Role Phone Melecio Wilkinson PCP Melecio [...] DAY *GEN IMDUR* ON HOLD - DR ARAZIA triamcinolone acetonide 0.1 % topical cream 02/28/2015 [...] Kenalog, Per 10 Mg [facility]#4725-9089-74 Reviewed 12/07/2014 12:00 AM OFFICE/OUTPATIENT VISIT EST Reviewed 06/19/2011 12:00 AM DRAIN/INJ JOINT/BURSA W/O US Reviewed 06/19/2011 12:00 AM Kenalog 40 Mg [facility]#6778-7727-28 Reviewed 08/25/2015 12:00 AM OFFICE/OUTPATIENT VISIT EST Reviewed 08/23/2015 12:00 AM Decadron, Per 1 Mg [facility]# [address]-31 Reviewed 08/23/2015 12:00 AM Depo-Medrol, Per 80 Mg [facility]#[address]-75 Reviewed 09/07/2015 12:00 AM X-RAY EXAM L-S [...] 12:00 AM Decadron, Per 1 Mg [place]# [address]-54 Reviewed 10/23/2015 12:00 AM Depo-Medrol, Per 80 Mg [facility]#[address]-99 Reviewed 07/26/2011 12:00 AM X-RAY EXAM OF ABDOMEN Reviewed 11/21/2015 12:00 AM Orthopedics Consultation Reviewed 11/21/2015 12:00 AM Physical Therapy Consultation Reviewed 12/20/2015 12:00 AM EXTREMITY STUDY Reviewed 10/12/2011 12:00 AM EXTREMITY STUDY Reviewed 05/10/2016 12:00 AM CONTRAST X-RAY OF SHOULDER Reviewed 07/09/2016 12:00 AM PNEUMOCOCCAL VACC 13 RIP IM Reviewed 08/08/2016 12:00 AM Decadron, Per 1 Mg [facility]# [address]-84 Reviewed 08/08/2016 12:00 AM Depo-Medrol, Per 80 Mg [facility]#[address]-10 Reviewed 01/01/2012 12:00 AM AIRWAY INHALATION TREATMENT Reviewed 01/01/2012 12:00 AM Rocephin 1 gm [facility]#[address]-62 Reviewed 01/16/2012 12:00 AM DRAIN/INJ JOINT/BURSA W/O US Reviewed 01/16/2012 12:00 AM Kenalog per 10Mg [facility]#[address]-93(Srinath) Reviewed 09/26/2016 12:00 AM CHEST X-RAY 2VW [...] Per 1 Mg (2ml) [facility] [address]-93 Reviewed 06/05/2012 12:00 AM DRAIN/INJ JOINT/BURSA W/O US Reviewed 06/05/2012 12:00 AM SYNVISC, Per 1 Mg (2ml) [facility] [address]-41 Reviewed 06/12/2012 12:00 AM DRAIN/INJ JOINT/BURSA W/O US Reviewed 06/12/2012 12:00 AM SYNVISC, Per 1 Mg (2ml) [facility] [address]-15 Reviewed 06/06/2017 12:00 AM Decadron 4mg Injection Reviewed 06/06/2017 12:00 AM Depo-Medrol 40mg Injection Reviewed 06/06/2017 12:[address] ABD & PELV 1/> REGNS Reviewed 07/16/2012 12:00 AM Hepatobiliary ductal system imaging with functional assessment Reviewed 07/16/2012 12:00 AM Decadron 8 mg [facility]#[id number] Reviewed 07/16/2012 12:00 AM Depo-Medrol 80mg [facility]#[id number] Reviewed 07/16/2012 12:00 AM COMPREHEN METABOLIC PANEL Reviewed 07/16/2012 12:00 AM LIPID PANEL Reviewed 07/16/2012 12:00 AM Flu Injection 3 Years And Above [facility]# [address]-08 RHC Reviewed 08/19/2012 12:00 AM METABOLIC PANEL TOTAL CA Reviewed 12/21/2009 12:[address] ABDOMEN W/O & W/DYE Reviewed 10/02/2012 12:00 AM CHEST X-RAY 2VW FRONTAL&LATL Reviewed 10/09/2012 12:00 AM Decadron 8 mg [facility]#[id number] Reviewed 10/09/2012 12:00 AM Depo-Medrol 80mg [facility]#97246643616 Reviewed 12/09/2012 12:00 AM CHEST X-RAY 2VW [...] Per 1 Mg (6ml) [facility] [address]-48 Reviewed 02/26/2013 12:00 AM Physical Therapy Reviewed 02/26/2013 12:[address] NECK SPINE W/O & W/DYE Reviewed 04/07/2013 12:00 AM INJECT TRIGGER POINTS 3/> Reviewed 04/07/2013 12:00 AM Kenalog per 10Mg [facility]#[address]-40(Srinath) Reviewed 07/21/2013 12:00 AM CHEST X-RAY 2VW FRONTAL&LATL Reviewed 07/21/2013 12:00 AM Decadron 8 mg [facility]# [address]-74 Reviewed 07/21/2013 12:00 AM Depo-Medrol 80 mg [facility]#[address]-03 Reviewed 07/21/2013 12:00 AM Rocephin 500 mg [facility]#9502-4365-39 Reviewed 09/22/2013 12:00 AM CHEST X-RAY 2VW FRONTAL&LATL Reviewed 10/29/2013 12:00 AM X-RAY EXAM OF ABDOMEN Reviewed 12/08/2013 12:00 AM THER/PROPH/DIAG INJ SC/IM Reviewed 12/08/2013 12:00 AM Decadron, Per 1 Mg [facility]# [address]-79 Reviewed 12/08/2013 12:00 AM Depo-Medrol, Per 80 Mg [facility]#8672-6[address]-98 Reviewed 12/08/2013 12:00 AM CHEST X-RAY 2VW [...] AM Decadron 8 mg [facility]# [address]-33 Reviewed 01/05/2014 12:00 AM Depo-Medrol 80 mg [facility]#[address]-42 Reviewed 01/05/2014 12:00 AM Rocephin 1 gram [facility]#8478-7115-01 Reviewed 03/15/2010 12:00 AM PROTHROMBIN TIME Reviewed [...] Reviewed 09/28/2010 12:00 AM Kenalog per 10Mg [facility]#[address]-72(Srinath) Reviewed 05/05/2014 12:00 AM DRAIN/INJ JOINT/BURSA W/O US Reviewed 05/05/2014 12:00 AM SYNVISC-ONE, Per 1 Mg (6ml) [facility] [address]-45 Reviewed 05/06/2014 12:00 AM COMPREHEN METABOLIC PANEL [...] AM Rocephin 500 mg [facility]#[address]-86 Reviewed 07/14/2014 12:00 AM Fluzone MEDICARE Only Reviewed 11/29/2010 12:00 AM INJECT TRIGGER POINTS 3/> Reviewed 11/29/2010 12:00 AM Kenalog per 10Mg [facility]#[address]-24(Srinath) Reviewed 07/14/2014 12:00 AM Decadron injection Reviewed [...] CVX Pneumococcal 07/09/2016 [facility] Prevnar 13 [id number] Intramuscular Right Deltoid 07/09/2016 07/28/2015 133 History [...] Number Start Date Medicare RHC Medicare RHC [id number] N/[place] [employer] [place] [employer] [place] [id number] N/A [employer] Medicare [employer] Ins [id number] N/A [place] Prog [id number] N/A Medicare Part B Medicare Of [place] [id number] Friday, 2008 Medicare Part A Medicare Part A [id number] N/A [employer] - RHC - Community Plan [facility] RHC Comm [id number] Wednesday, 2015 [employer] - [place] [employer] [place] [id number] Wednesday, 2015 Medicare Part A Medicare - Lab/Xray [id number] N/A History of Encounters Visit Date Visit [...] 01/09/2017 Office visit Melecio Jaja DO 01/01/2017 [facility] Seth Devlin DO 12/31/2016 [facility] [...] DO 01/12/2015 Office visit Katty CRAIG 12/16/2014 [facility] Alfa Platt MD 12/14/2014 Voided Melecio Jaja DO 12/08/2014 Office visit Alfa Platt MD 12/08/2014 Office visit Melecio Wilkinson DO 12/07/2014 Nurse visit Riri Salazar MD 12/02/2014 [facility] Alfa Platt MD 12/02/2014 [facility] Magi Powers MD 11/29/2014 [facility] Magi Powers MD 11/29/2014 Voided Katty CRAIG 11/11/2014 Office visit 11/11/2014 Office visit Katty CRAIG 11/11/2014 Office visit Melecio Wilkinson DO 10/14/2014 Office visit Katty CRAIG 09/14/2014 Office visit Katty CRAIG 09/08/2014 [facility] Ama Barrios MD 09/07/2014 Office visit [...] 01/06/2013 Office visit Gorge Yo MD 12/09/2012 [facility] Ama Barrios MD 12/09/2012 Office visit Stephanie Richardson APRN 11/26/2012 Office visit Gorge Yo MD 10/30/2012 [facility] Gorge Yo MD 10/29/2012 Office visit [...] 05/14/2012 Office visit Gorge Yo MD 05/12/2012 [facility] DO 05/11/2012 [facility] DO 03/13/2012 Office visit Gorge Yo MD [...] 03/05/2011 Office visit Melecio Wilkinson DO 02/06/2011 [facility] Gorge Yo MD 01/08/2011 Office visit Melecio Wilkinson DO 12/27/2010 Office visit Gorge Yo MD 11/29/2010 Office visit Gorge Yo MD 11/07/2010 Office visit Melecio Wilkinson DO 09/28/2010 Office visit Gorge Yo MD 09/05/2010 [facility] Gorge Yo MD 08/28/2010 Office visit Gorge Yo MD 08/07/2010 Office visit Janis Navarrete APRN 07/25/2010 Office visit Melecio Wilkinson DO 06/27/2010 Office visit Gorge Yo MD 06/14/2010 Office visit Melecio Wilkinson DO 06/06/2010 Laboratory Alfonso Camacho MD 06/01/2010 Office visit Melecio Wilkinson DO 04/17/2010 Office visit Melecio Wilkinson DO 04/06/2010 Office visit Gorge Yo MD 04/02/2010 Hospital Alfonso Cmaacho MD 03/31/2010 Laboratory Alfonso Camacho MD 03/31/2010 Laboratory Alfonso Camacho MD 03/31/2010 [facility] Alfonso Camacho MD 03/21/2010 Procedures Gorge [...]
--- OUTSIDE RECORDS SUMMARY | 2018-01-22 12:27 | XMS REPORT ---
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 Name Role Phone Melecio Wilkinson PCP Unavailable Allergies and Adverse Reactions Name Reaction Notes NO KNOWN DRUG ALLERGIES Plan of Treatment Planned Activity Comments Planned Date Planned Time Plan/Goal RENAL FUNCTION PANEL 05/09/2015 12:00 AM Medications Active Name Start Date [...] TABLET BY MOUTH EVERY DAY clonidine HCl oral tablet 0.2 mg 06/07/2014 TAKE ONE TABLET BY MOUTH THREE TIMES DAILY NEEDED furosemide oral tablet 20 mg 06/08/2014 take [...] BY MOUTH EVERY DAY *GEN IMDUR* tamsulosin Oral capsule,extended release 24hr 0.4 mg 09/28/2014 09/23/2015 TAKE 1 CAPSULE BY MOUTH EVERY DAY diphenhydramine HCl oral capsule 50 mg 09/28/2014 TAKE 1 CAPSULE BY MOUTH EVERY SIX HOURS NEEDED loratadine oral tablet 10 mg 09/28/2014 TAKE 1 TABLET BY MOUTH EVERY DAY - GEN CLARITIN- Symbicort inhalation HFA aerosol inhaler 160-4.5 mcg/actuation 11/23/2014 INHALE 2 PUFFS BY MOUTH 2 TIMES PER DAY MORNING AND EVENING omega-3 acid ethyl esters oral capsule 1 gram 11/23/2014 TAKE 2 CAPSULES (2 GRAM) BY ORAL ROUTE 2 TIMES PER DAY FOR 30 DAYS clonidine HCl oral tablet 0.2 mg 12/23/2014 TAKE ONE TABLET BY MOUTH THREE TIMES DAILY NEEDED omeprazole oral capsule,delayed release(DR/EC) 40 mg 01/13/2015 07/12/2015 take 1 capsule by oral route 2 times a day for 30 days methocarbamol oral tablet 500 mg 01/24/2015 06/23/2015 take 1 tablet (500 mg) by oral route 4 times a day for 30 days gabapentin oral capsule 300 mg 02/17/2015 08/16/2015 take 2 capsules (600 mg ) by oral route 3 times per day for 30 days allopurinol oral tablet 300 mg 02/21/2015 TAKE 1 TABLET BY MOUTH ONCE DAILY digoxin oral tablet 125 mcg 02/21/2015 TAKE 1 TABLET BY MOUTH EVERY DAY zolpidem Oral Tablet 10 mg 03/02/2015 05/31/2015 take 1 tablet (10 mg) by oral route once daily at bedtime for 30 days cimetidine oral tablet 200 mg 03/02/2015 take 1 tablet (200 mg) by oral route once daily 30 minutes before meals omeprazole oral capsule,delayed release(DR/EC) 40 mg 03/23/2015 TAKE 1 CAPSULE BY MOUTH ONCE DAILY BEFORE A MEAL betamethasone dipropionate topical lotion 0.05 % 03/28/2015 apply a few drops to the affected area(s) by topical route 2 times per day and massage lightly until it disappears methocarbamol oral tablet 750 mg 03/29/2015 08/26/2015 take 1 tablet by oral route every 6 hours as needed for 30 days cimetidine oral tablet 200 mg 03/29/2015 TAKE 1 TABLET BY MOUTH EVERY DAY 30 MINUTES BEFORE A MEAL oxycodone oral tablet 20 mg 04/21/2015 05/21/2015 take 1 tablet (20 mg) by oral route every 4-6 hours for 30 days gabapentin oral capsule 300 mg 04/26/2015 10/23/2015 take 1 capsule by oral route 2 times a day for 30 days allopurinol oral tablet 100 mg take 1.5 tablets by oral route daily ondansetron oral tablet,disintegrating 8 mg take 1 tablet (8 mg) and place on top of the tongue where it will dissolve, then swallow by oral route every 8 hours cimetidine oral tablet 200 mg 04/28/2015 TAKE 1 TABLET BY MOUTH EVERY DAY 30 MINUTES BEFORE A MEAL sodium bicarbonate 325 mg oral tablet take 0.5 tablet by oral route 2 times a day atorvastatin 40 mg oral tablet take 1 tablet (40 mg) by oral route once daily carvedilol 12.5 mg oral tablet take 2 tablets (25 mg) by oral route 2 times per day with food Name Start Date Expiration Date SIG Comments [...] evening meals for 30 days bupropion HCl oral tablet extended release 24 hr 150 mg 05/20/2014 take 1 tablet (150 mg) by oral route once daily simvastatin oral tablet 20 mg 06/07/2014 TAKE 1 TABLET BY MOUTH DAILY AT BEDTIME baclofen oral tablet 10 mg 07/19/2014 11/16/2014 take 0.5 tablet by oral route 3 times a day for 30 days Voltaren topical gel 1 % 09/14/2014 apply 2 gram to the affected area(s) by topical route 4 times per day amantadine HCl oral tablet 100 mg 10/05/2014 [...] every 12 hours for 7 days furosemide oral tablet 20 mg 02/24/2015 TAKE 2 TABELTS BY MOUTH TWICE DAILY FOR 3 DAYS THEN TAKE 1 TABLET DAILY valacyclovir oral tablet 1 gram 02/28/2015 03/05/2015 take 1 tablet (1,000 mg) by oral route 2 times per day for 5 days Tradjenta oral tablet 5 mg 03/28/2015 04/25/2015 take 1 tablet (5 mg) by oral route once daily for 28 days Bactrim DS oral tablet 800-160 mg 03/28/2015 04/04/2015 take 1 tablet by oral route every 12 hours for 7 days Bactrim DS oral tablet 800-160 mg 04/08/2015 04/13/2015 take 1 tablet by oral route every 12 hours for 5 days Cipro oral tablet 250 mg 04/22/2015 04/29/2015 take 1 tablet (250 mg) by oral route every 12 hours for 7 days Coreg oral tablet 25 mg take 1 tablet (25 mg) by oral [...] once daily for 30 days changed to Elvi by Dr. Yesenia Cuevas Topical Adhesive Patch, [...] for 30 days Discontinued by Hospitalist at [facility] Augmentin Oral Tablet 875-125 mg 11/07/2010 03/05/2011 [...] the 300 mg capsule dose change lisinopril oral tablet 10 mg 09/28/2014 04/26/2015 TAKE 1 TABLET BY MOUTH EVERY DAY FOR BLOOD PRESSURE ON HOLD - DR ARAIZA penicillin V potassium oral tablet 500 mg 11/11/2014 11/11/2014 take 1 tablet (500 mg) by oral route 2 times per day for 7 days Not available at the pharmacy metformin oral tablet 500 mg 11/15/2014 03/11/2015 TAKE 1 TABLET BY MOUTH TWICE DAILY WITH MORNING AND EVENING MEALS metformin oral tablet 500 mg 11/15/2014 03/11/2015 TAKE 1 TABLET BY MOUTH TWICE DAILY WITH MORNING AND EVENING MEALS elevated creatinine hydralazine oral tablet 50 mg 12/23/2014 04/26/2015 TAKE 1 TABLET BY MOUTH THREE TIMES A DAY hydralazine oral tablet 50 mg 12/23/2014 04/26/2015 TAKE 1 TABLET BY MOUTH THREE TIMES A DAY RX ON HOLD - DR ARAIZA hydrocodone-acetaminophen oral tablet 10-325 mg 01/04/2015 01/12/2015 take 2 tablets by oral route 2 times a day as needed for 30 days diphenhydramine HCl oral capsule 50 mg 01/21/2015 02/28/2015 TAKE 1 CAPSULE BY MOUTH EVERY SIX HOURS NEEDED carvedilol oral tablet 12.5 mg 02/21/2015 04/26/2015 TAKE 1 TABLET BY MOUTH TWO TIMES A DAY *GEN COREG* carvedilol oral tablet 12.5 mg 02/21/2015 04/26/2015 TAKE 1 TABLET BY MOUTH TWO TIMES A DAY *GEN COREG* DR ARAIZA INCREASED TO 25 mg po bid isosorbide mononitrate oral tablet extended release 24 hr 30 mg 02/21/20152014 TAKE 1 TABLET BY MOUTH EVERY DAY *GEN IMDUR* isosorbide mononitrate oral tablet extended release 24 hr 30 mg 02/21/20152014 TAKE 1 TABLET BY MOUTH EVERY DAY *GEN IMDUR* ON HOLD - DR ARAIZA triamcinolone acetonide topical cream 0.1 % 02/28/2015 03/28/2015 apply a thin layer to the affected area(s) by topical route 3 times per day hydroxyzine HCl oral tablet 50 mg 02/28/2015 03/28/2015 take 1 tablet (50 mg) by oral route 4 times per day as needed lisinopril oral tablet 20 mg 03/23/2015 04/26/2015 TAKE 1 TABLET BY MOUTH DAILY lisinopril oral tablet 20 mg 03/23/2015 04/26/2015 TAKE 1 TABLET BY MOUTH DAILY ON HOLD - DR ARAIZA Problem List Description Status Onset SI joint [...] HC BMI BSA BMI Percentile O2 Sat(%) 05/09/2015 9:39:00 AM 130 mmHg 72 mmHg [...] 06/19/2011 12:00 AM Kenalog 40 Mg [facility]#9872-4826-88 Reviewed 11/03/2009 12:00 AM PROTHROMBIN TIME Reviewed 07/26/2011 12:00 AM X-RAY EXAM OF ABDOMEN Reviewed 10/12/2011 12:00 AM EXTREMITY STUDY Reviewed 01/01/2012 12:00 AM AIRWAY INHALATION TREATMENT Ordered 01/01/2012 12:00 AM Rocephin 1 gm [facility]#[address]-52 Reviewed 01/16/2012 12:00 AM DRAIN/INJ JOINT/BURSA W/O US Reviewed 01/16/2012 12:00 AM Kenalog per 10Mg [facility]#[address]-69(Srinath) Reviewed 02/05/2012 12:[address] ABDOMEN W/O & W/DYE Reviewed 02/05/2012 12:[address] PELVIS W/O & W/DYE Reviewed 05/29/2012 12:00 AM DRAIN/INJ JOINT/BURSA W/O US Reviewed 05/29/2012 12:00 AM SYNVISC, Per 1 Mg (2ml) [facility] [address]-56 Reviewed 06/05/2012 12:00 AM DRAIN/INJ JOINT/BURSA W/O US Reviewed 06/05/2012 12:00 AM SYNVISC, Per 1 Mg (2ml) [facility] [address]-22 Reviewed 06/12/2012 12:00 AM DRAIN/INJ JOINT/BURSA W/O US Reviewed 06/12/2012 12:00 AM SYNVISC, Per 1 Mg (2ml) [facility] [address]-06 Reviewed 07/16/2012 12:00 AM Hepatobiliary ductal system imaging with functional assessment Reviewed 07/16/2012 12:00 AM Decadron 8 mg [facility]#56586190723 Reviewed 07/16/2012 12:00 AM Depo-Medrol 80mg [facility]#79798175138 Reviewed 07/16/2012 12:00 AM COMPREHEN METABOLIC PANEL Reviewed 07/16/2012 12:00 AM LIPID PANEL Reviewed 07/16/2012 12:00 AM Flu Injection 3 Years And Above [facility]# [address]-36 RHC Reviewed 08/19/2012 12:00 AM METABOLIC PANEL TOTAL CA Reviewed 12/21/2009 12:[address] ABDOMEN W/O & W/DYE Reviewed 10/02/2012 12:00 AM CHEST X-RAY 2VW FRONTAL&LATL Reviewed 10/09/2012 12:00 AM Decadron 8 mg [facility]#[id number] Reviewed 10/09/2012 12:00 AM Depo-Medrol 80mg [facility]#82017133197 Reviewed 12/09/2012 12:00 AM CHEST X-RAY 2VW FRONTAL&LATL Returned 12/09/2012 12:00 AM ELECTROCARDIOGRAM COMPLETE Ordered 12/09/2012 12:00 AM ASSAY OF TROPONIN QUANT [...] AM SYNVISC-ONE, Per 1 Mg (6ml) [facility] [address]-89 Reviewed 02/26/2013 12:00 AM Physical Therapy Ordered 02/26/2013 12:[address] NECK SPINE W/O & W/DYE Reviewed 04/07/2013 12:00 AM INJECT TRIGGER POINTS 3/> Reviewed 04/07/2013 12:00 AM Kenalog per 10Mg [facility]#[address]-50(Srinath) Reviewed 07/21/2013 12:00 AM CHEST X-RAY 2VW FRONTAL&LATL Reviewed 07/21/2013 12:00 AM Decadron 8 mg [facility]# [address]-76 Reviewed 07/21/2013 12:00 AM Depo-Medrol 80 mg [facility]#[address]-08 Reviewed 07/21/2013 12:00 AM Rocephin 500 mg [facility]#0331-7391-38 Reviewed 09/22/2013 12:00 AM CHEST X-RAY 2VW FRONTAL&LATL Returned 10/29/2013 12:00 AM X-RAY EXAM OF ABDOMEN Reviewed 12/08/2013 12:00 AM THER/PROPH/DIAG INJ SC/IM Reviewed 12/08/2013 12:00 AM Decadron, Per 1 Mg [facility]# [address]-87 Reviewed 12/08/2013 12:00 AM Depo-Medrol, Per 80 Mg [facility]#5879-7761-15 Reviewed 12/08/2013 12:00 AM CHEST X-RAY 2VW [...] 01/05/2014 12:00 AM Decadron 8 mg [facility]# [address]-90 Reviewed 01/05/2014 12:00 AM Depo-Medrol 80 mg [facility]#[address]-71 Reviewed 01/05/2014 12:00 AM Rocephin 1 gram [facility]#9258-9830-36 Reviewed 03/15/2010 12:00 AM PROTHROMBIN TIME Reviewed [...] 09/28/2010 12:00 AM Kenalog per 10Mg [facility]#[address]-52(Srinath) Reviewed 05/05/2014 12:00 AM DRAIN/INJ JOINT/BURSA W/O US Reviewed 05/05/2014 12:00 AM SYNVISC-ONE, Per 1 Mg (6ml) [facility] [address]-59 Reviewed 05/06/2014 12:00 AM COMPREHEN METABOLIC PANEL [...] 11/07/2010 12:00 AM Rocephin 500 mg [facility]#[address]-48 Reviewed 07/14/2014 12:00 AM Fluzone MEDICARE Only Reviewed 11/29/2010 12:00 AM INJECT TRIGGER POINTS 3/> Reviewed 11/29/2010 12:00 AM Kenalog per 10Mg [facility]#[address]-40(Srinath) Reviewed 08/16/2014 12:00 AM OFFICE/OUTPATIENT VISIT EST Ordered 07/14/2014 12:00 AM Decadron injection Reviewed 07/14/2014 12:00 AM Depo-Medrol 40mg Reviewed 01/08/2011 12:00 AM X-RAY EXAM OF ABDOMEN Reviewed 11/11/2014 12:00 AM INJ TRIGGER POINT 1/2 MUSCL Ordered 12/07/2014 12:00 AM OFFICE/OUTPATIENT VISIT EST Ordered 10/14/2014 12:00 AM RADIOLOGIC EXAM SACROILIAC JOINTS 3/MORE VIEWS Returned 10/14/2014 12:00 AM X-RAY EXAM L-S SPINE 2/3 VWS Returned 03/05/2011 12:00 AM ECHO EXAM OF ABDOMEN Reviewed 03/12/2011 12:00 AM URINALYSIS AUTO W/O SCOPE Reviewed 03/05/2011 12:00 AM URINALYSIS AUTO W/O SCOPE Reviewed 05/09/2015 12:00 AM RENAL FUNCTION PANEL Ordered Results Summary Data and Description Results 11/03/2009 [...] 9:44AM Peripheral neuropathy May 09 2015 9:44AM Payers Insurance Name Company Name Plan Name Plan Number Policy Number Policy Group Number Start Date Medicare Part A Medicare Part A [id number] N/A [employer] Medicare [employer] Ins [id number] N/A [place] Medical Assistance [facility] Medical [facility] Pro [id number] N/A Medicare Part B Medicare Of [place] [id number] Friday, 2008 History of Encounters Visit Date Visit Type Provider 05/09/2015 Office visit Melecio Wilkinson DO 04/26/2015 Office visit Katty CRAIG 04/08/2015 Office visit Melecio Wilkinson DO 04/07/2015 Voided Melecio Wilkinson DO 03/29/2015 Office visit Katty CRAIG 03/28/2015 Office visit Melecio Wilkinson DO 03/15/2015 Office visit Katty CRAIG 02/28/2015 Office visit Melecio Wilkinson DO 02/17/2015 Office visit Katty CRAIG 02/17/2015 Office visit Melecio Wilkinson DO 01/19/2015 Office visit Katty CRAIG 01/13/2015 Office visit Melecio Wilkinson DO 01/12/2015 Office visit Katty CRAIG 12/16/2014 [facility] Alfa Platt MD 12/14/2014 Voided Melecio Wilkinson DO 12/08/2014 Office visit Melecio Wilkinson DO 12/08/2014 Office visit Alfa Platt MD 12/07/2014 Nurse visit Riri Salazar MD 12/02/2014 [facility] Alfa Platt MD 12/02/2014 [facility] Magi Powers MD 11/29/2014 Voided Katty CRAIG 11/29/2014 Hospital Magi Powers MD 11/11/2014 Office visit Melecio Wilkinson DO 11/11/2014 Office visit Katty CRAIG 10/14/2014 Office visit Katty CRAIG 09/14/2014 Office visit Katty CRAIG 09/08/2014 [facility] Ama Barrios MD 09/07/2014 Office visit [...] visit Melecio Wilkinson DO 12/23/2013 Office visit Melecio Wilkinson DO 12/23/2013 Office visit Katty CRAIG 12/18/2013 Office visit Janis Navarrete AMUSEMENT PARK WORKER 12/08/2013 Office visit Janis Navarrete APRN 11/25/2013 [...] Yo MD 12/09/2012 Office visit Stephanie Richardson APRN 12/09/2012 [facility] Ama Barrios MD 11/26/2012 Office visit Gorge Yo MD 10/30/2012 [facility] Gorge Yo MD 10/29/2012 Office visit [...] 05/14/2012 Office visit Gorge Yo MD 05/12/2012 [facility] [place] 05/11/2012 [facility] [place] 03/13/2012 Office visit Gorge Yo MD [...] 03/05/2011 Office visit Melecio Wilkinson DO 02/06/2011 [facility] Gorge Yo MD 01/08/2011 Office visit Melecio Wilkinson DO 12/27/2010 Office visit Gorge Yo MD 11/29/2010 Office visit Gorge Yo MD 11/07/2010 Office visit Melecio Wilkinson DO 09/28/2010 Office visit Gorge Yo MD 09/05/2010 [facility] Gorge Yo MD 08/28/2010 Office visit Gorge Yo MD 08/07/2010 Office visit Janis Navarrete APRN 07/25/2010 Office visit Melecio Wilkinson DO 06/27/2010 Office visit Gorge Yo MD 06/14/2010 Office visit Melecio Wilkinson DO 06/06/2010 Laboratory Alfonso Camacho MD 06/01/2010 Office visit Melecio Wilkinson DO 04/17/2010 Office visit Melecio Wilkinson DO 04/06/2010 Office visit Gorge Yo MD 04/02/2010 [facility] Alfonso Camacho MD 03/31/2010 Laboratory Alfonso Camacho MD 03/31/2010 Laboratory Alfonso Camacho MD 03/31/2010 [facility] Alfonso Camacho MD 03/21/2010 Procedures Gorge [...]
[2018-01-22] MEDS ORDERED: fentaNYL INJECTION 100 MCG/2 ML AMP ONE (12:31)
--- OUTSIDE RECORDS SUMMARY | 2018-01-22 12:31 | XMS REPORT ---
Author Author Melecio Wilkinson [facility] Address [address] [place] [phone] Care Team Providers Care Analysis Analyst Name Role Phone Melecio Wilkinson PCP Unavailable Allergies and Adverse Reactions Name Reaction Notes NO KNOWN DRUG ALLERGIES Plan of Treatment Planned Activity Comments Planned Date Planned Time Plan/Goal COMPREHEN METABOLIC PANEL 04/11/2016 12:00 AM LIPID PANEL 04/11/2016 12:00 AM GLYCOSYLATED HEMOGLOBIN TEST 04/11/2016 12:00 AM VITAMIN B-12 04/11/2016 12:00 AM COMPLETE CBC W/AUTO DIFF WBC 04/11/2016 12:00 AM CONTRAST X-RAY OF SHOULDER 05/10/2016 12:00 AM AIRWAY INHALATION TREATMENT 01/01/2012 12:00 [...] MINUITES PRIOR TO MEALS AND AT BEDTIME zolpidem 10 mg oral tablet 05/03/2016 07/02/2016 take 1 tablet (10 mg) by oral route once daily at bedtime for 30 days Amitiza 24 mcg oral capsule 05/03/2016 take 1 capsule (24 mcg) by oral route 2 times per day with food and water fluticasone 50 mcg/actuation nasal spray,suspension 05/03/2016 inhale 1 spray (50 mcg) in each nostril by intranasal route 2 times per day Lyrica 50 mg oral capsule 05/07/2016 take 1 capsule (50 mg) by oral route 2 times per day oxycodone 20 mg oral tablet 05/10/2016 06/09/2016 take 1 tablet by oral route every 4 to 6 hours for 30 days pain oxycodone 30 mg oral tablet,oral only,ext.rel.12 hr 05/10/2016 take 1 tablet (30 mg) by oral [...] for 30 days Discontinued by Hospitalist at [place] Augmentin 875-125 mg oral tablet 11/07/2010 03/05/2011 [...] route every 12 hours for 30 days Duncan stoned Problem List Description Status Onset SI [...] HC BMI BSA BMI Percentile O2 Sat(%) 05/03/2016 2:37:00 PM 134 mmHg 78 mmHg [...] 07/11/2015 12:00 AM Kenalog, Per 10 Mg [facility]#2834-3100-07 Reviewed 06/19/2011 12:00 AM DRAIN/INJ JOINT/BURSA W/O US Reviewed 06/19/2011 12:00 AM Kenalog 40 Mg [facility]#9985-4229-26 Reviewed 08/25/2015 12:00 AM OFFICE/OUTPATIENT VISIT EST Reviewed 08/23/2015 12:00 AM Decadron, Per 1 Mg [facility]# [address]-74 Reviewed 08/23/2015 12:00 AM Depo-Medrol, Per 80 Mg [facility]#[address]-50 Reviewed 09/07/2015 12:00 AM X-RAY EXAM L-S [...] Reviewed 01/01/2012 12:00 AM Rocephin 1 gm [facility]#[address]-46 Reviewed 01/16/2012 12:00 AM DRAIN/INJ JOINT/BURSA W/O US Reviewed 01/16/2012 12:00 AM Kenalog per 10Mg [facility]#[address]-33(Srinath) Reviewed 02/05/2012 12:[address] ABDOMEN W/O & W/DYE Reviewed 02/05/2012 12:[address] PELVIS W/O & W/DYE Reviewed 05/29/2012 12:00 AM DRAIN/INJ JOINT/BURSA W/O US Reviewed 05/29/2012 12:00 AM SYNVISC, Per 1 Mg (2ml) [facility] [address]-76 Reviewed 06/05/2012 12:00 AM DRAIN/INJ JOINT/BURSA W/O US Reviewed 06/05/2012 12:00 AM SYNVISC, Per 1 Mg (2ml) [facility] [address]-74 Reviewed 06/12/2012 12:00 AM DRAIN/INJ JOINT/BURSA W/O US Reviewed 06/12/2012 12:00 AM SYNVISC, Per 1 Mg (2ml) [facility] [address]-43 Reviewed 07/16/2012 12:00 AM Hepatobiliary ductal system imaging with functional assessment Reviewed 07/16/2012 12:00 AM Decadron 8 mg [facility]#[id number] Reviewed 07/16/2012 12:00 AM Depo-Medrol 80mg [facility]#[id number] Reviewed 07/16/2012 12:00 AM COMPREHEN METABOLIC PANEL Reviewed 07/16/2012 12:00 AM LIPID PANEL Reviewed 07/16/2012 12:00 AM Flu Injection 3 Years And Above [facility]# [address]-09 RHC Reviewed 08/19/2012 12:00 AM METABOLIC PANEL TOTAL CA Reviewed 12/21/2009 12:[address] ABDOMEN W/O & W/DYE Reviewed 10/02/2012 12:00 AM CHEST X-RAY 2VW FRONTAL&LATL Reviewed 10/09/2012 12:00 AM Decadron 8 mg [facility]#[id number] Reviewed 10/09/2012 12:00 AM Depo-Medrol 80mg [facility]#[id number] Reviewed 12/09/2012 12:00 AM CHEST X-RAY 2VW [...] 12:00 AM SYNVISC-ONE, Per 1 Mg (6ml) [facility] [address]-89 Reviewed 02/26/2013 12:[address] NECK SPINE W/O & W/DYE Reviewed 04/07/2013 12:00 AM INJECT TRIGGER POINTS 3/> Reviewed 04/07/2013 12:00 AM Kenalog per 10Mg [facility]#[address]-40(Srinath) Reviewed 07/21/2013 12:00 AM CHEST X-RAY 2VW FRONTAL&LATL Reviewed 07/21/2013 12:00 AM Decadron 8 mg [facility]# [address]-98 Reviewed 07/21/2013 12:00 AM Depo-Medrol 80 mg [facility]#[address]-67 Reviewed 07/21/2013 12:00 AM Rocephin 500 mg [facility]#2112-0[address]-99 Reviewed 09/22/2013 12:00 AM CHEST X-RAY 2VW FRONTAL&LATL Returned 10/29/2013 12:00 AM X-RAY EXAM OF ABDOMEN Reviewed 12/08/2013 12:00 AM THER/PROPH/DIAG INJ SC/IM Reviewed 12/08/2013 12:00 AM Decadron, Per 1 Mg [facility]# [address]-91 Reviewed 12/08/2013 12:00 AM Depo-Medrol, Per 80 Mg [facility]#9543-4936-71 Reviewed 12/08/2013 12:00 AM CHEST X-RAY 2VW [...] Returned 01/05/2014 12:00 AM Decadron 8 mg [facility]# [address]-37 Reviewed 01/05/2014 12:00 AM Depo-Medrol 80 mg [facility]#[address]-07 Reviewed 01/05/2014 12:00 AM Rocephin 1 gram [facility]#5971-5122-02 Reviewed 03/15/2010 12:00 AM PROTHROMBIN TIME Reviewed [...] 09/28/2010 12:00 AM Kenalog per 10Mg [facility]#[address]-69(Srinath) Reviewed 05/05/2014 12:00 AM DRAIN/INJ JOINT/BURSA W/O US Reviewed 05/05/2014 12:00 AM SYNVISC-ONE, Per 1 Mg (6ml) [facility] [address]-06 Reviewed 05/06/2014 12:00 AM COMPREHEN METABOLIC PANEL [...] Reviewed 11/07/2010 12:00 AM Rocephin 500 mg [facility]#[address]-18 Reviewed 07/14/2014 12:00 AM Fluzone MEDICARE Only Reviewed 11/29/2010 12:00 AM INJECT TRIGGER POINTS 3/> Reviewed 11/29/2010 12:00 AM Kenalog per 10Mg -[facility]#[address]-15(Srinath) Reviewed 07/14/2014 12:00 AM Decadron injection Reviewed [...] left shoulder pain May 10 2016 11:27AM Payers Insurance Name Company Name Plan Name Plan Number Policy Number Policy Group Number Start Date Medicare Part A Medicare RHC [id number] N/A [employer] [place] [employer] [place] [id number] Wednesday, 2015 Medicare Part A Medicare - Lab/Xray [id number] N/A [place] [employer] Life Medicare [facility] Life Ins [phone] N/A [place] Medical Assistance [facility] Medical Assistance Prog [id number] N/A Medicare Part B Medicare Of [place] [id number] Friday, February 22, 2008 Medicare Part A Medicare Part A [id number] N/A [facility] - RHC - [facility] Plan [facility] Comm [id number] Wednesday, September 23, 2015 History of Encounters Visit Date Visit Type Provider 05/03/2016 Office visit Melecio Wilkinson DO 04/11/2016 [...] Jaja DO 08/16/2014 Nurse visit Katty Jefferson SAFETY DEPOSIT CLERK 07/19/2014 Office visit Katty Jefferson SAFETY DEPOSIT CLERK 07/14/2014 Office visit Melecio Jaja DO 06/21/2014 Office visit Katty Jefferson SAFETY DEPOSIT CLERK 05/20/2014 Office visit Melecio Jaja DO 05/14/2014 Office visit Melecio Willhite DO 05/05/2014 Office visit Katty Jefferson SAFETY DEPOSIT CLERK 04/26/2014 Office visit Katty Jefferson SAFETY DEPOSIT CLERK 03/24/2014 Office visit Katty Jefferson SAFETY DEPOSIT CLERK 02/24/2014 Office visit Katty Jefferson SAFETY DEPOSIT CLERK 01/05/2014 Office visit Melecio Jaja DO 12/23/2013 Office visit Katty Jefferson SAFETY DEPOSIT CLERK 12/23/2013 Office visit Melecio Jaja DO 12/18/2013 Office visit Janis Navarrete DIRECTOR BROADCAST 12/08/2013 Office visit Janis Landon DIRECTOR BROADCAST 11/25/2013 Office visit Katty Jefferson SAFETY DEPOSIT CLERK 10/29/2013 Office visit Melecio Wilkinson DO 09/22/2013 Office visit Janis Navarrete DIRECTOR BROADCAST 07/28/2013 Office visit Katty DURÁNP 07/21/2013 Office visit Melecio Jaja DO 07/08/2013 Office visit Katty CRAIG 05/06/2013 Office visit Melecio Wilkinson DO 04/07/2013 Office visit Gorge Yo MD 02/26/2013 Office visit Melecio Wilkinson DO 01/29/2013 Office visit Gorge Yo MD 01/06/2013 Office visit Gorge Yo MD 12/09/2012 [facility] Ama Barrios MD 12/09/2012 Office visit Stephanie Richardson DIRECTOR BROADCAST 11/26/2012 Office visit Gorge Yo MD 10/30/2012 [...] Gorge Yo MD 05/29/2012 Office visit Gorge oY MD 05/19/2012 Office visit Melecio Wilkinson DO 05/14/2012 Office visit Gorge Yo MD 05/12/[address] [facility] DO 05/11/[address] [facility] DO 03/13/2012 Office visit Gorge Yo MD [...] 04/06/2010 Office visit Gorge Yo MD 04/02/2010 [facility] Alfonso Camacho MD 03/31/2010 Laboratory Alfonso [...]
[2018-01-22] MEDS ORDERED: MIDAZOLAM 5 MG/5 ML (VERSED) VIAL ONE (12:33)
--- OUTSIDE RECORDS SUMMARY | 2018-01-22 12:34 | XMS REPORT ---
Author Author Melecio Wilkinson [facility] Address [address] [place] [phone] Care Team Providers Care Credit Risk Modeler Name Role Phone Melecio Wilkinson PCP Unavailable [...] TABLET BY MOUTH FOUR TIMES A DAY gabapentin oral capsule 300 mg 02/17/2015 08/16/2015 [...] 3 DAYS THEN TAKE 1 TABLET DAILY triamcinolone acetonide topical cream 0.1 % 02/28/2015 apply a thin layer to the affected area(s) by topical route 3 times per day hydroxyzine HCl oral tablet 50 mg 02/28/2015 take 1 tablet (50 mg) by oral route 4 times per day as needed zolpidem Oral Tablet 10 mg 03/02/2015 05/31/2015 take 1 tablet (10 mg) by oral route once daily at bedtime for 30 days cimetidine oral tablet 200 mg 03/02/2015 take 1 tablet (200 mg) by oral route once daily 30 minutes before meals oxycodone oral tablet 20 mg 03/15/2015 03/29/2015 take 1 tablet (20 mg) by oral route every 4-6 hours for 14 days Name Start Date Expiration Date SIG [...] route every 12 hours for 7 days valacyclovir oral tablet 1 gram 02/28/2015 03/05/2015 take 1 tablet (1,000 mg) by oral route 2 times per day for 5 days Discontinued Name Start Date [...] changed to Sereneeto by Dr. Yesenia Cuevas Topical Adhesive Patch, [...] for 30 days Discontinued by Hospitalist at [place] Augmentin Oral Tablet 875-125 mg 11/07/2010 03/05/2011 [...] WITH MORNING AND EVENING MEALS elevated creatinine hydrocodone-acetaminophen oral tablet 10-325 mg 01/04/2015 01/12/2015 take 2 tablets by oral route 2 times a day as needed for 30 days diphenhydramine HCl oral capsule 50 mg 01/21/2015 02/28/2015 TAKE 1 CAPSULE BY MOUTH EVERY SIX HOURS NEEDED Problem List Description Status Onset SI joint [...] HC BMI BSA BMI Percentile O2 Sat(%) 03/15/2015 10:00:00 AM 100 mmHg 58 mmHg [...] 10:06AM Cervical radiculopathy Mar 15 2015 10:06AM Payers Insurance Name Company Name Plan Name Plan Number Policy Number Policy Group Number Start Date Medicare Part A Medicare Part A [id number] N/A [place] [employer] Medicare [facility] [phone] N/A [place] Medical Assistance [facility] Medical Assistance Prog [id number] N/A Medicare Part B Medicare Of [place] [id number] Friday, 2008 History of Encounters Visit Date Visit Type Provider 03/15/2015 Office visit Katty CRAIG 02/28/2015 Office visit Melecio Wilknison DO 02/17/2015 Office visit Katty CRAIG 02/17/2015 Office visit Melecio Wilkinson DO 01/19/2015 Office visit Katty CRAIG 01/13/2015 Office visit Melecio Wilkinson DO 01/12/2015 Office visit Katty CRAIG 12/16/2014 [facility] Alfa Platt MD 12/14/2014 Voided Melecio Wilkinson DO 12/08/2014 Office visit Melecio Wilkinson DO 12/08/2014 Office visit Alfa Platt MD 12/07/2014 Nurse visit Riri Salazar MD 12/02/2014 [facility] Alfa Platt MD 12/02/2014 [facility] Magi Powers MD 11/29/2014 Voided Katty CRAIG 11/29/2014 [facility] Magi Powers MD 11/11/2014 Office visit Melecio Wilkinson DO 11/11/2014 Office visit Katty CRAIG 10/14/2014 Office visit Katty DURÁNP 09/14/2014 Office visit Katty DURÁNP 09/08/2014 Hospital Ama Barrios MD 09/07/2014 Office visit Melecio Jaja DO 08/16/2014 Nurse visit Katty Jefferson 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 ROBOTICIST 07/19/2014 Office visit Katty Jefferson 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 ROBOTICIST 07/14/2014 Office visit Melecio Jaja DO 06/21/2014 Office visit Katty DURÁNP 05/20/2014 Office visit Melecio Jaja DO 05/14/2014 Office visit Melecio Jaja DO 05/05/2014 Office visit Katty DURÁNP 04/26/2014 Office visit Katty DURÁNP 03/24/2014 Office visit Katty DURÁNP 02/24/2014 Office visit Katty DURÁNP 01/05/2014 Office visit Melecio Jaja DO 12/23/2013 Office visit Melecio Jaja DO 12/23/2013 Office visit Katty CRAIG 12/18/2013 Office visit Janis Navarrete IMPREGNATOR AND DRIER HELPER 12/08/2013 Office visit Janis Navarrete IMPREGNATOR AND DRIER HELPER 11/25/2013 Office visit Katty DURÁNP 10/29/2013 Office visit Melecio Wilkinson DO 09/22/2013 Office visit Janis Navarrete IMPREGNATOR AND DRIER HELPER 07/28/2013 Office visit Katty DURÁNP 07/21/2013 Office visit Melecio Wilkinson DO 07/08/2013 Office visit Katty CRAIG 05/06/2013 Office visit Melecio Wilkinson DO 04/07/2013 Office visit Gorge Yo MD 02/26/2013 Office visit Melecio Wilkinson DO 01/29/2013 Office visit Gorge Yo MD 01/06/2013 Office visit Gorge Yo MD 12/09/2012 Office visit Stephanie Richardson IMPREGNATOR AND DRIER HELPER 12/09/2012 Hospital Ama Barrios MD 11/26/2012 Office visit Gorge Yo MD 10/30/2012 [facility] Gorge Yo MD 10/29/2012 Office visit Gorge Yo MD 10/09/2012 Office visit Melecio Wilkinson DO 08/19/2012 Office visit Melecio Jaja DO 08/04/2012 Office visit Melecio Wilkinson DO 07/24/2012 Office visit Gorge Yo MD 07/16/2012 Office visit Melecio Wilkinson DO 06/12/2012 Office visit Gorge Yo MD 06/05/2012 Office visit Gorge Yo MD 05/29/2012 Office visit Gorge Yo MD 05/19/2012 Office visit Melecio Wilkinson DO 05/14/2012 Office visit Gorge Yo MD 05/12/2012 [facility] DO 05/11/2012 [facility] DO 03/13/2012 Office visit [...] 03/05/2011 Office visit Melecio Wilkinson DO 02/06/2011 [facility] Gorge Yo MD 01/08/2011 Office visit Melecio Wilkinson DO 12/27/2010 Office visit Gorge Yo MD 11/29/2010 Office visit Gorge Yo MD 11/07/2010 Office visit Melecio Wilkinson DO 09/28/2010 Office visit Gorge Yo MD 09/05/2010 [facility] Gorge Yo MD 08/28/2010 Office visit Gorge Yo MD 08/07/2010 Office visit Janis Navarrete APRN 07/25/2010 Office visit Melecio Wilkinson DO 06/27/2010 Office visit Gorge Yo MD 06/14/2010 Office visit Melecio Wilkinson DO 06/06/2010 Laboratory Alfonso Camacho MD 06/01/2010 Office visit Melecio Wilkinson DO 04/17/2010 Office visit Melecio Wilkinson DO 04/06/2010 Office visit Gorge Yo MD 04/02/2010 [facility] Alfonso Camacho MD 03/31/2010 Laboratory Alfonso Camacho MD 03/31/2010 Laboratory Alfonso Camacho MD 03/31/2010 [facility] Alfonso Camacho MD 03/21/2010 [...]
--- OUTSIDE RECORDS SUMMARY | 2018-01-22 12:37 | XMS REPORT ---
Author Author Melecio Wilkinson [facility] Address [address] [place] [phone] Care Team Providers Care Medical Technician Name Role Phone Melecio Wilkinson PCP Unavailable [...] days pain midodrine 5 mg oral tablet 01/06/2016 TAKE [...] changed to Elvi by Dr. Yesenia Cuevas 5 % topical [...] for 30 days Discontinued by Hospitalist at [place] Augmentin 875-125 mg oral tablet 11/07/2010 03/05/2011 [...] TAKE 1 TABLET BY MOUTH DAILY ON TAMI - DR ARAIZA gabapentin 300 mg oral [...] 07/11/2015 12:00 AM Kenalog, Per 10 Mg [facility] N[facility]ED [facility]#6684-5795-10 Reviewed 06/19/2011 12:00 AM DRAIN/INJ JOINT/BURSA W/O US Reviewed 06/19/2011 12:00 AM Kenalog 40 Mg Im-Formerly Named [facility]#1882-0558-46 Reviewed 08/25/2015 12:00 AM OFFICE/OUTPATIENT VISIT EST Reviewed 08/23/2015 12:00 AM Decadron, Per 1 Mg [facility] NAMED [facility]# [address]-81 Reviewed 08/23/2015 12:00 AM Depo-Medrol, Per 80 Mg [facility] NAMED [facility]#[address]-33 Reviewed 09/07/2015 12:00 AM X-RAY EXAM L-S [...] Reviewed 01/01/2012 12:00 AM Rocephin 1 gm [facility]MER[facility] NAMED [facility]#[address]-76 Reviewed 01/16/2012 12:00 AM DRAIN/INJ JOINT/BURSA W/O US Reviewed 01/16/2012 12:00 AM Kenalog per 10Mg Im-Formerly Named [facility]#[address]-04(Srinath) Reviewed 02/05/2012 12:[address] ABDOMEN W/O & W/DYE Reviewed 02/05/2012 12:[address] PELVIS W/O & W/DYE Reviewed 05/29/2012 12:00 AM DRAIN/INJ JOINT/BURSA W/O US Reviewed 05/29/2012 12:00 AM SYNVISC, Per 1 Mg (2ml) [facility] NAMED [facility] [address]-14 Reviewed 06/05/2012 12:00 AM DRAIN/INJ JOINT/BURSA W/O US Reviewed 06/05/2012 12:00 AM SYNVISC, Per 1 Mg (2ml) [facility] NAMED [facility] [address]-33 Reviewed 06/12/2012 12:00 AM DRAIN/INJ JOINT/BURSA W/O US Reviewed 06/12/2012 12:00 AM SYNVISC, Per 1 Mg (2ml) [facility] NAMED [facility] [address]-34 Reviewed 07/16/2012 12:00 AM Hepatobiliary ductal system imaging with functional assessment Reviewed 07/16/2012 12:00 AM Decadron 8 mg [facility] NAMED [facility]#[id number] Reviewed 07/16/2012 12:00 AM Depo-Medrol 80mg [facility] NAMED [facility]#[id number] Reviewed 07/16/2012 12:00 AM COMPREHEN METABOLIC PANEL Reviewed 07/16/2012 12:00 AM LIPID PANEL Reviewed 07/16/2012 12:00 AM Flu Injection 3 Years And Above [facility] NAMED [facility]# [address]-79 RHC Reviewed 08/19/2012 12:00 AM METABOLIC PANEL TOTAL CA Reviewed 12/21/2009 12:[address] ABDOMEN W/O & W/DYE Reviewed 10/02/2012 12:00 AM CHEST X-RAY 2VW FRONTAL&LATL Reviewed 10/09/2012 12:00 AM Decadron 8 mg [facility] NAMED [facility]#[id number] Reviewed 10/09/2012 12:00 AM Depo-Medrol 80mg [facility] NAMED [facility]#[id number] Reviewed 12/09/2012 12:00 AM CHEST X-RAY 2VW [...] 12:00 AM SYNVISC-ONE, Per 1 Mg (6ml) [facility] NAMED [facility] [address]-72 Reviewed 02/26/2013 12:[address] NECK SPINE W/O & W/DYE Reviewed 04/07/2013 12:00 AM INJECT TRIGGER POINTS 3/> Reviewed 04/07/2013 12:00 AM Kenalog per 10Mg Im-Nd#[address]-48(Srinath) Reviewed 07/21/2013 12:00 AM CHEST X-RAY 2VW FRONTAL&LATL Reviewed 07/21/2013 12:00 AM Decadron 8 mg [facility] NAMED [facility]# [address]-04 Reviewed 07/21/2013 12:00 AM Depo-Medrol 80 mg [facility] NAMED [facility]#[address]-89 Reviewed 07/21/2013 12:00 AM Rocephin 500 mg [facility] NAMED [facility]#2133-9600-20 Reviewed 09/22/2013 12:00 AM CHEST X-RAY 2VW FRONTAL&LATL Returned 10/29/2013 12:00 AM X-RAY EXAM OF ABDOMEN Reviewed 12/08/2013 12:00 AM THER/PROPH/DIAG INJ SC/IM Reviewed 12/08/2013 12:00 AM Decadron, Per 1 Mg [facility] NAMED [facility]# [address]-34 Reviewed 12/08/2013 12:00 AM Depo-Medrol, Per 80 Mg [facility] NAMED [facility]#0631-9903-69 Reviewed 12/08/2013 12:00 AM CHEST X-RAY 2VW [...] Returned 01/05/2014 12:00 AM Decadron 8 mg [facility] NAMED [facility]# [address]-58 Reviewed 01/05/2014 12:00 AM Depo-Medrol 80 mg [facility] NAMED [facility]#[address]-34 Reviewed 01/05/2014 12:00 AM Rocephin 1 gram [facility] NAMED [facility]#0240-8227-17 Reviewed 03/15/2010 12:00 AM PROTHROMBIN TIME Reviewed [...] Reviewed 09/28/2010 12:00 AM Kenalog per 10Mg Im-Formerly Named [facility]#[address]-45(Srinath) Reviewed 05/05/2014 12:00 AM DRAIN/INJ JOINT/BURSA W/O US Reviewed 05/05/2014 12:00 AM SYNVISC-ONE, Per 1 Mg (6ml) [facility] NAMED [facility] [address]-42 Reviewed 05/06/2014 12:00 AM COMPREHEN METABOLIC PANEL [...] Reviewed 11/07/2010 12:00 AM Rocephin 500 mg FORMER[facility] NAMED [facility]#[address]-33 Reviewed 07/14/2014 12:00 AM Fluzone MEDICARE Only Reviewed 11/29/2010 12:00 AM INJECT TRIGGER POINTS 3/> Reviewed 11/29/2010 12:00 AM Kenalog per 10Mg Im-[facility] Named [facility]#[address]-59(Srinath) Reviewed 07/14/2014 12:00 AM Decadron injection Reviewed [...] Acute Nov 07 2010 10:56AM Sinusitis, Acute b 2010 10:56AM Hypertension Nov 07 2010 10:56AM [...] fall Oct 14 2014 2:06PM Pharyngitis, Acute Feb 19 2015 8:23AM Upper respiratory infection Nov 11 2014 8:23AM Lumbar spondylosis Fe2014 2:04PM Lumbar degenerative disc disease Nov 11 2014 2:04PM Lumbar Radiculitis Fe2014 2:04PM Cervicalgia Nov [...] Date Medicare Part A Medicare Part A [id number] N/A [employer] - RHC - [place] State Plan [employer] - RHC [place] State Plan [id number] Wednesday, 2015 Medicare Part A Medicare - Lab/Xray [id number] N/A [facility] - [facility] - [facility] Plan [facility] Comm [id number] Wednesday, September 23, 2015 [place] [employer] Medicare [facility] Life Ins [id number] N/A [place] Medical Assistance [facility] Medical Assistance Prog [id number] N/A Medicare Part B Medicare Of [place] [id number] Friday, February 22, 2008 History of Encounters Visit Date Visit [...] 05/16/2015 Office visit 05/16/2015 Office visit Melecio Cruzte DO 05/09/2015 Office visit Melecio Cruzte DO [...] DO 01/12/2015 Office visit Katty CRAIG 12/16/2014 [facility] Alfa Platt MD 12/14/2014 Voided Melecio [place] DO 12/08/2014 Office visit Alfa Platt MD 12/08/2014 Office visit Melecio Jaja DO 12/07/2014 Nurse visit Riri Salazar MD 12/02/2014 [facility] Alfa Platt MD 12/02/2014 [facility] Powers [facility] Voided Katty CRAIG [...] visit Melecio Jaja DO 05/14/2014 Office visit Meleciorocio Cruzte DO 05/05/2014 Office visit Katty Jefferson SURFACE HYDROLOGIST 04/26/2014 Office visit Katty Jefefrson SURFACE HYDROLOGIST 03/24/2014 Office visit Katty Jefferson SURFACE HYDROLOGIST 02/24/2014 Office visit Katty Jefferson SURFACE HYDROLOGIST 01/05/2014 Office visit Melecio Jaja DO 12/23/2013 Office visit Katty Jefferson SURFACE HYDROLOGIST 12/23/2013 Office visit Melecio Wilkinson DO 12/18/2013 Office visit Janis Navarrete DEBURRER 12/08/2013 Office visit Janis Navarrete DEBURRER 11/25/2013 Office visit Katty Jefferson SURFACE HYDROLOGIST 10/29/2013 Office visit Melecio Wilkinson DO 09/22/2013 Office visit Janis Landon DEBURRER 07/28/2013 Office visit Katty Jefferson SURFACE HYDROLOGIST 07/21/2013 Office visit Melecio Wilkinson DO 07/08/2013 Office visit Katty DURÁNP 05/06/2013 Office visit Melecio Wilkinson DO 04/07/2013 Office visit Gorge Yo MD 02/26/2013 Office visit Melecio Wilkinson DO 01/29/2013 Office visit Gorge Yo MD 01/06/2013 Office visit Gorge Yo MD 12/09/2012 [facility] Ama Barrios MD 12/09/2012 Office visit Stephanie Richardson DEBURRER 11/26/2012 Office visit Gorge Yo MD 10/30/2012 [facility] Gorge Yo MD 10/29/2012 Office visit [...] 05/14/2012 Office visit Gorge Yo MD 05/12/2012 [facility] DO 05/11/2012 [facility] 03/13/2012 Office visit Gorge Yo MD [...] 03/05/2011 Office visit Melecio Wilkinson DO 02/06/2011 [facility] Gorge Yo MD 01/08/2011 Office visit Melecio Wilkinson DO 12/27/2010 Office visit Gorge Yo MD 11/29/2010 Office visit Gorge Yo MD 11/07/2010 Office visit Melecio Wilkinson DO 09/28/2010 Office visit Gorge Yo MD 09/05/2010 [facility] Gorge Yo MD 08/28/2010 Office visit [...]
--- OUTSIDE RECORDS SUMMARY | 2018-01-22 12:42 | XMS REPORT ---
Author Author Melecio Wilkinson [facility] Address [address] [place] [phone] Care Team Providers Care Special Education Tutor Name Role Phone Melecio Wilkinson PCP Unavailable [...] for 30 days Discontinued by Hospitalist at [facility]in 875-125 mg oral tablet 11/07/2010 03/05/2011 [...] HC BMI BSA BMI Percentile O2 Sat(%) 09/26/2015 10:30:00 AM 136 mmHg 78 mmHg [...] Kenalog, Per 10 Mg [facility]#0449-5206-82 Reviewed 06/19/2011 12:00 AM DRAIN/INJ JOINT/BURSA W/O US Reviewed 06/19/2011 12:00 AM Kenalog 40 Mg [facility]#7279-7328-54 Reviewed 08/25/2015 12:00 AM OFFICE/OUTPATIENT VISIT EST Reviewed 08/23/2015 12:00 AM Decadron, Per 1 Mg [facility]# [address]-75 Reviewed 08/23/2015 12:00 AM Depo-Medrol, Per 80 Mg [facility]#[address]-74 Reviewed 09/07/2015 12:00 AM X-RAY EXAM L-S [...] AM Rocephin 1 gm [facility]#[address]-98 Reviewed 01/16/2012 12:00 AM DRAIN/INJ JOINT/BURSA W/O US Reviewed 01/16/2012 12:00 AM Kenalog per 10Mg [facility]#[address]-38(Srinath) Reviewed 02/05/2012 12:[address] ABDOMEN W/O & W/DYE Reviewed 02/05/2012 12:[address] PELVIS W/O & W/DYE Reviewed 05/29/2012 12:00 AM DRAIN/INJ JOINT/BURSA W/O US Reviewed 05/29/2012 12:00 AM SYNVISC, Per 1 Mg (2ml) [facility] [address]-89 Reviewed 06/05/2012 12:00 AM DRAIN/INJ JOINT/BURSA W/O US Reviewed 06/05/2012 12:00 AM SYNVISC, Per 1 Mg (2ml) [facility] [address]-37 Reviewed 06/12/2012 12:00 AM DRAIN/INJ JOINT/BURSA W/O US Reviewed 06/12/2012 12:00 AM SYNVISC, Per 1 Mg (2ml) [facility] [address]-76 Reviewed 07/16/2012 12:00 AM Hepatobiliary ductal system imaging with functional assessment Reviewed 07/16/2012 12:00 AM Decadron 8 mg [facility]#79335792701 Reviewed 07/16/2012 12:00 AM Depo-Medrol 80mg [facility]#16191174276 Reviewed 07/16/2012 12:00 AM COMPREHEN METABOLIC PANEL Reviewed 07/16/2012 12:00 AM LIPID PANEL Reviewed 07/16/2012 12:00 AM Flu Injection 3 Years And Above [facility]# [address]-07 RHC Reviewed 08/19/2012 12:00 AM METABOLIC PANEL TOTAL CA Reviewed 12/21/2009 12:[address] ABDOMEN W/O & W/DYE Reviewed 10/02/2012 12:00 AM CHEST X-RAY 2VW FRONTAL&LATL Reviewed 10/09/2012 12:00 AM Decadron 8 mg [facility]#18738862564 Reviewed 10/09/2012 12:00 AM Depo-Medrol 80mg [facility]#69231128795 Reviewed 12/09/2012 12:00 AM CHEST X-RAY 2VW [...] 1 Mg (6ml) [facility] [address]-66 Reviewed 02/26/2013 12:[address] NECK SPINE W/O & W/DYE Reviewed 04/07/2013 12:00 AM INJECT TRIGGER POINTS 3/> Reviewed 04/07/2013 12:00 AM Kenalog per 10Mg [facility]#[address]-19(Srinath) Reviewed 07/21/2013 12:00 AM CHEST X-RAY 2VW FRONTAL&LATL Reviewed 07/21/2013 12:00 AM Decadron 8 mg [facility]# [address]-55 Reviewed 07/21/2013 12:00 AM Depo-Medrol 80 mg [facility]#[address]-89 Reviewed 07/21/2013 12:00 AM Rocephin 500 mg [facility]#8919-7025-67 Reviewed 09/22/2013 12:00 AM CHEST X-RAY 2VW FRONTAL&LATL Returned 10/29/2013 12:00 AM X-RAY EXAM OF ABDOMEN Reviewed 12/08/2013 12:00 AM THER/PROPH/DIAG INJ SC/IM Reviewed 12/08/2013 12:00 AM Decadron, Per 1 Mg [facility]# [address]-44 Reviewed 12/08/2013 12:00 AM Depo-Medrol, Per 80 Mg [facility]#0261-8730-08 Reviewed 12/08/2013 12:00 AM CHEST X-RAY 2VW [...] Decadron 8 mg [facility]# [address]-94 Reviewed 01/05/2014 12:00 AM Depo-Medrol 80 mg [facility]#[address]-15 Reviewed 01/05/2014 12:00 AM Rocephin 1 gram [facility]#3730-3774-57 Reviewed 03/15/2010 12:00 AM PROTHROMBIN TIME Reviewed [...] AM Kenalog per 10Mg [facility]#[address]-98(Srinath) Reviewed 05/05/2014 12:00 AM DRAIN/INJ JOINT/BURSA W/O US Reviewed 05/05/2014 12:00 AM SYNVISC-ONE, Per 1 Mg (6ml) [facility] [address]-74 Reviewed 05/06/2014 12:00 AM COMPREHEN METABOLIC PANEL [...] AM Rocephin 500 mg [facility]#[address]-29 Reviewed 07/14/2014 12:00 AM Fluzone MEDICARE Only Reviewed 11/29/2010 12:00 AM INJECT TRIGGER POINTS 3/> Reviewed 11/29/2010 12:00 AM Kenalog per 10Mg [facility]#[address]-48(Srinath) Reviewed 07/14/2014 12:00 AM Decadron injection Reviewed [...] 2:04PM Cervicalgia b 2014 2:04PM Muscle Spasm Feb 2014 2:04PM Pain in joint; Knee,right Nov 11 2014 2:04PM Cervical radiculopathy Feb 2014 2:04PM Myofascial pain Feb 2014 2:47PM Cervical Spinal stenosis Fe2014 2:47PM Chronic pain syndrome Dec 07 2014 [...] Left shoulder pain Sep 26 2015 10:32AM Payers Insurance Name Company Name Plan Name Plan Number Policy Number Policy Group Number Start Date Medicare Part A Medicare Part A [id number] N/A [facility] Comm [id number] Wednesday, 2015 [facility] Medicare [facility] Ins [phone] N/A [place] Medical Assistance [facility] Medical Assistance Prog [id number] N/A Medicare Part B Medicare [place] [id number] Friday, 2008 History of Encounters Visit Date Visit Type Provider 09/26/2015 Office visit Melecio Wilkinson DO 09/07/2015 [...] DO 01/12/2015 Office visit Katty CRAIG 12/16/2014 [facility] Alfa Platt MD 12/14/2014 Voided Melecio Jaja DO 12/08/2014 Office visit Alfa Platt MD 12/08/2014 Office visit Melecio Jaja DO 12/07/2014 Nurse visit Riri Salazar MD 12/02/2014 [facility] Alfa Platt MD 12/02/2014 [facility] Powers [facility]2014 Voided Katty CRAIG 11/11/2014 Office visit Katty CRAIG 11/11/2014 Office visit Melecio Jaja DO 10/14/2014 Office visit Katty CRAIG 09/14/2014 Office visit Katty CRAIG 09/08/2014 [facility] Ama Barrios MD 09/07/2014 Office visit Melecio Jaja DO 08/16/2014 Nurse visit Katty CRAIG 07/19/2014 Office visit Katty CRAIG 07/14/2014 Office visit Melecio Jaja DO 06/21/2014 Office visit Katty DURÁNP 05/20/2014 Office visit Melecio Jaja DO 05/14/2014 Office visit Melecio Jaja DO 05/05/2014 Office visit Katty Jefferson PRESS LOADER 04/26/2014 Office visit Katty Jefferson PRESS LOADER 03/24/2014 Office visit Katty DURÁNP 02/24/2014 Office visit Katty Jefferson PRESS LOADER 01/05/2014 Office visit Melecio Jaja DO 12/23/2013 Office visit Katty Jefferson PRESS LOADER 12/23/2013 Office visit Melecio Jaja DO 12/18/2013 Office visit Janis Navarrete CHIEF PROGRAM OFFICER 12/08/2013 Office visit Janis Navarrete CHIEF PROGRAM OFFICER 11/25/2013 Office visit Katty Jefferson PRESS LOADER 10/29/2013 Office visit Melecio Wilkinson DO 09/22/2013 Office visit Janis Navarrete CHIEF PROGRAM OFFICER 07/28/2013 Office visit Katty Jefferson PRESS LOADER 07/21/2013 Office visit Melecio Wilkinson DO 07/08/2013 Office visit Katty CRAIG 05/06/2013 Office visit Melecio Wilkinson DO 04/07/2013 Office visit Gorge Yo MD 02/26/2013 Office visit Melecio Wilkinson DO 01/29/2013 Office visit Gorge Yo MD 01/06/2013 Office visit Gorge Yo MD 12/09/2012 [facility] Ama Barrios MD 12/09/2012 Office visit Stephanie Richardson CHIEF PROGRAM OFFICER 11/26/2012 Office visit Gorge Yo MD 10/30/2012 [facility] Gorge Yo MD 10/29/2012 Office visit Gorge [...] 05/14/2012 Office visit Gorge Yo MD 05/12/2012 [facility] DO 05/11/2012 [facility] DO 03/13/2012 Office visit Gorge Yo [...] 03/05/2011 Office visit Melecio Wilkinson DO 02/06/2011 [facility] Gorge Yo MD 01/08/2011 Office visit Melecio Wilkinson DO 12/27/2010 Office visit Gorge Yo MD 11/29/2010 Office visit Gorge Yo MD 11/07/2010 Office visit Melecio Wilkinson DO 09/28/2010 Office visit Gorge Yo MD 09/05/2010 [facility] Gorge Yo MD 08/28/2010 Office visit Gorge [...] MD 03/31/2010 Laboratory Alfonso Camacho MD 03/31/2010 [facility] Alfonso Camacho MD 03/21/2010 Procedures Gorge Yo [...]
[2018-01-22] MEDS ORDERED: LIDOCAINE 1% INJ 20 ML 20 ML VIAL ONE (12:49)
--- OUTSIDE RECORDS SUMMARY | 2018-01-22 12:49 | XMS REPORT ---
Author Author Melecio Wilkinson [facility] Address [address] [place], [place] [phone] Care Team Providers Care [place] Lifeguard Name Role Phone Melecio Wilkinson PCP Unavailable [...] by oral route 3 times a day oxycodone 20 mg oral tablet,oral only,ext.rel.12 hr 02/05/2017 03/07/2017 take 1 tablet (20 mg) by oral route every 8 hours for 30 days oxycodone 20 mg oral tablet 02/05/2017 03/07/2017 take 1 tablet by oral route q6h prn for 30 days midodrine 5 mg oral tablet 02/22/2017 TAKE 1 TABLET BY MOUTH TWICE DAILY Symbicort 160-4.5 mcg/actuation inhalation HFA aerosol inhaler 02/22/2017 INHALE 2 PUFFS BY MOUTH 2 TIMES PER DAY MORNING AND EVENING Name Start Date Expiration Date SIG Comments [...] every 12 hours for 7 days zolpidem 10 mg oral tablet 11/22/2016 01/21/2017 take 1 tablet (10 mg) by oral route once daily at bedtime for 30 days Klor-Con 10 10 mEq [...] for 30 days Discontinued by Hospitalist at [place] niacin 500 mg oral tablet 10/10/2016 take [...] HC BMI BSA BMI Percentile O2 Sat(%) 02/22/2017 9:48:00 AM 137 mmHg 75 mmHg [...] 07/11/2015 12:00 AM Kenalog, Per 10 Mg [facility]#1844-9862-46 Reviewed 12/07/2014 12:00 AM OFFICE/OUTPATIENT VISIT EST Reviewed 06/19/2011 12:00 AM DRAIN/INJ JOINT/BURSA W/O US Reviewed 06/19/2011 12:00 AM Kenalog 40 Mg [facility]#4461-3076-32 Reviewed 08/25/2015 12:00 AM OFFICE/OUTPATIENT VISIT EST Reviewed 08/23/2015 12:00 AM Decadron, Per 1 Mg [facility]# [address]-03 Reviewed 08/23/2015 12:00 AM Depo-Medrol, Per 80 Mg [facility]#[address]-03 Reviewed 09/07/2015 12:00 AM X-RAY EXAM L-S [...] 10/23/2015 12:00 AM Decadron, Per 1 Mg [facility]# [address]-78 Reviewed 10/23/2015 12:00 AM Depo-Medrol, Per 80 Mg [facility]#[address]-05 Reviewed 07/26/2011 12:00 AM X-RAY EXAM OF ABDOMEN Reviewed 11/21/2015 12:00 AM Orthopedics Consultation Reviewed 11/21/2015 12:00 AM Physical Therapy Consultation Reviewed 12/20/2015 12:00 AM EXTREMITY STUDY Reviewed 10/12/2011 12:00 AM EXTREMITY STUDY Reviewed 05/10/2016 12:00 AM CONTRAST X-RAY OF SHOULDER Reviewed 07/09/2016 12:00 AM PNEUMOCOCCAL VACC 13 RIP IM Reviewed 08/08/2016 12:00 AM Decadron, Per 1 Mg [facility]# [address]-93 Reviewed 08/08/2016 12:00 AM Depo-Medrol, Per 80 Mg [facility]#[address]-54 Reviewed 01/01/2012 12:00 AM AIRWAY INHALATION TREATMENT Reviewed 01/01/2012 12:00 AM Rocephin 1 gm [facility]#[address]-82 Reviewed 01/16/2012 12:00 AM DRAIN/INJ JOINT/BURSA W/O US Reviewed 01/16/2012 12:00 AM Kenalog per 10Mg [facility]#[address]-75(Srinath) Reviewed 09/26/2016 12:00 AM CHEST X-RAY 2VW [...] 02/22/2017 12:00 AM GLYCOSYLATED HEMOGLOBIN TEST Reviewed 05/29/2012 12:00 AM DRAIN/INJ JOINT/BURSA W/O US Reviewed 05/29/2012 12:00 AM SYNVISC, Per 1 Mg (2ml) [facility] [address]-14 Reviewed 06/05/2012 12:00 AM DRAIN/INJ JOINT/BURSA W/O US Reviewed 06/05/2012 12:00 AM SYNVISC, Per 1 Mg (2ml) [facility] [address]-13 Reviewed 06/12/2012 12:00 AM DRAIN/INJ JOINT/BURSA W/O US Reviewed 06/12/2012 12:00 AM SYNVISC, Per 1 Mg (2ml) [facility] [address]-63 Reviewed 07/16/2012 12:00 AM Hepatobiliary ductal system imaging with functional assessment Reviewed 07/16/2012 12:00 AM Decadron 8 mg [facility]#03628299262 Reviewed 07/16/2012 12:00 AM Depo-Medrol 80mg [facility]#73568806235 Reviewed 07/16/2012 12:00 AM COMPREHEN METABOLIC PANEL Reviewed 07/16/2012 12:00 AM LIPID PANEL Reviewed 07/16/2012 12:00 AM Flu Injection 3 Years And Above [facility]# [address]-66 RHC Reviewed 08/19/2012 12:00 AM METABOLIC PANEL TOTAL CA Reviewed 12/21/2009 12:[address] ABDOMEN W/O & W/DYE Reviewed 10/02/2012 12:00 AM CHEST X-RAY 2VW FRONTAL&LATL Reviewed 10/09/2012 12:00 AM Decadron 8 mg [facility]#89784856106 Reviewed 10/09/2012 12:00 AM Depo-Medrol 80mg [facility]#46615899894 Reviewed 12/09/2012 12:00 AM CHEST X-RAY 2VW [...] 12:00 AM SYNVISC-ONE, Per 1 Mg (6ml) [facility] [address]-61 Reviewed 02/26/2013 12:00 AM Physical Therapy Reviewed 02/26/2013 12:[address] NECK SPINE W/O & W/DYE Reviewed 04/07/2013 12:00 AM INJECT TRIGGER POINTS 3/> Reviewed 04/07/2013 12:00 AM Kenalog per 10Mg [facility]#[address]-24(Srinath) Reviewed 07/21/2013 12:00 AM CHEST X-RAY 2VW FRONTAL&LATL Reviewed 07/21/2013 12:00 AM Decadron 8 mg [facility]# [address]-52 Reviewed 07/21/2013 12:00 AM Depo-Medrol 80 mg [facility]#[address]-83 Reviewed 07/21/2013 12:00 AM Rocephin 500 mg [facility]#7832-5895-16 Reviewed 09/22/2013 12:00 AM CHEST X-RAY 2VW FRONTAL&LATL Reviewed 10/29/2013 12:00 AM X-RAY EXAM OF ABDOMEN Reviewed 12/08/2013 12:00 AM THER/PROPH/DIAG INJ SC/IM Reviewed 12/08/2013 12:00 AM Decadron, Per 1 Mg [facility]# [address]-43 Reviewed 12/08/2013 12:00 AM Depo-Medrol, Per 80 Mg [facility]#0488-3776-55 Reviewed 12/08/2013 12:00 AM CHEST X-RAY 2VW [...] Reviewed 01/05/2014 12:00 AM Decadron 8 mg [facility]# [address]-99 Reviewed 01/05/2014 12:00 AM Depo-Medrol 80 mg [facility]#[address]-69 Reviewed 01/05/2014 12:00 AM Rocephin 1 gram [facility]#2928-7340-63 Reviewed 03/15/2010 12:00 AM PROTHROMBIN TIME Reviewed [...] Reviewed 09/28/2010 12:00 AM Kenalog per 10Mg [facility]#[address]-34(Srinath) Reviewed 05/05/2014 12:00 AM DRAIN/INJ JOINT/BURSA W/O US Reviewed 05/05/2014 12:00 AM SYNVISC-ONE, Per 1 Mg (6ml) [facility] [address]-47 Reviewed 05/06/2014 12:00 AM COMPREHEN METABOLIC PANEL [...] Reviewed 11/07/2010 12:00 AM Rocephin 500 mg [facility]#[address]-74 Reviewed 07/14/2014 12:00 AM Fluzone MEDICARE Only Reviewed 11/29/2010 12:00 AM INJECT TRIGGER POINTS 3/> Reviewed 11/29/2010 12:00 AM Kenalog per 10Mg [facility]#[address]-08(Srinath) Reviewed 07/14/2014 12:00 AM Decadron injection Reviewed [...] CVX Pneumococcal 07/09/2016 [facility] Prevnar 13 [id number] Intramuscular Right Deltoid 07/09/2016 07/28/2015 133 History [...] 2017 9:49AM Anemia Feb 22 2017 9:49AM Payers Insurance Name Company Name Plan Name Plan Number Policy Number Policy Group Number Start Date Medicare RHC Medicare RHC [id number] N/A [employer] [place] State Plan [facility] [id number] N/A [employer] Medicare [employer] Ins [id number] N/A [place] Medical Assistance [facility] Medical Assistance Prog [id number] N/A Medicare Part B Medicare Of [place] [id number] Friday, 2008 Medicare Part A Medicare Part A [id number] N/A [facility] - RHC - [facility] Plan [facility] RHC Comm [id number] Wednesday, 2015 [employer] - RHC - [place] State [facility] [employer] - RHC [facility] Plan [id number] Wednesday, 2015 Medicare Part A Medicare - Lab/Xray [id number] N/A History of Encounters Visit Date Visit Type Provider 02/22/2017 Office visit Melecio Wilkinson DO 02/05/2017 Office visit Melecio Wilkinson DO 2017 [facility] Rasta Mckeon MD 01/09/2017 Office visit Melecio Wilkinson DO 01/01/2017 [facility] Seth Devlin DO 12/31/2016 [facility] Rasta Mckeon MD 12/21/2016 Office visit Melecio Wilkinson DO 11/20/2016 Office visit Melecio Wilkinson DO 11/05/2016 Office visit Melecio Jaja DO [...] 01/12/2015 Office visit Katty CRAIG 12/16/2014 [facility] Platt MD 12/14/2014 Voided Melecio [place] DO [...] Melecio Jaja DO 05/14/2014 Office visit Melecio Jaaj DO 05/05/2014 Office visit Katty CRAIG 04/26/2014 Office visit Katty CRAIG 03/24/2014 Office visit Katty CRAIG 02/24/2014 Office visit Katty CRAIG 01/05/2014 Office visit Melecio Jaja DO 12/23/2013 Office visit Katty CRAIG 12/23/2013 Office visit Melecio Jaja DO 12/18/2013 Office visit Janis Navarrete APRN 12/08/2013 Office visit Janis Navarrete ELECTROCHEMIST 11/25/2013 Office visit Katty Jefferson TABULAR TYPIST 10/29/2013 Office visit Melecio Wilkinson DO 09/22/2013 Office visit Janis Navarrete ELECTROCHEMIST 07/28/2013 Office visit Katty [place] TABULAR TYPIST 07/21/2013 Office visit Melecio Wilkinson DO 07/08/2013 Office visit Katty CRAIG 05/06/2013 Office visit Melecio Wilkinson DO 04/07/2013 Office visit Gorge Yo MD 02/26/2013 Office visit Melecio Wilkinson DO 01/29/2013 Office visit Gorge Yo MD 01/06/2013 Office visit Gorge Yo MD 12/09/2012 [facility] Ama Barrios MD 12/09/2012 Office visit Stephanie Richardson ELECTROCHEMIST 11/26/2012 Office visit Gorge Yo MD 10/30/2012 [...] 05/12/2012 [facility] DO 05/11/2012 [facility] DO 03/13/2012 Office visit Gorge Yo MD [...] MD 03/31/2010 Laboratory Alfonso Camacho MD 03/31/2010 [facility] Alfonso Camacho MD 03/21/2010 Procedures Gorge [...]
--- OUTSIDE RECORDS SUMMARY | 2018-01-22 12:53 | XMS REPORT ---
Author Author Melecio Wilkinson [facility] Address [address] [place] [id number] Care Team Providers Care Director Of Assisted Living Name Role Phone Melecio Wilkinson PCP Unavailable [...] per day oxycodone 20 mg oral tablet 06/07/2016 07/07/2016 take 1 tablet by oral route every 4 to 6 hours for 30 days pain oxycodone 30 mg oral tablet,oral only,ext.rel.12 hr 06/07/2016 take 1 tablet (30 mg) by oral [...] for 30 days Discontinued by Hospitalist at [place] Augmentin 875-125 mg oral tablet 11/07/2010 03/05/2011 [...] route every 12 hours for 30 days [place] stoned Problem List Description Status Onset SI [...] HC BMI BSA BMI Percentile O2 Sat(%) 06/07/2016 9:27:00 AM 144 mmHg 72 mmHg [...] 07/11/2015 12:00 AM Kenalog, Per 10 Mg [facility]#4457-4166-08 Reviewed 06/19/2011 12:00 AM DRAIN/INJ JOINT/BURSA W/O US Reviewed 06/19/2011 12:00 AM Kenalog 40 Mg [facility]#7290-0478-92 Reviewed 08/25/2015 12:00 AM OFFICE/OUTPATIENT VISIT EST Reviewed 08/23/2015 12:00 AM Decadron, Per 1 Mg [facility]# [address]-96 Reviewed 08/23/2015 12:00 AM Depo-Medrol, Per 80 Mg [facility]#[address]-55 Reviewed 09/07/2015 12:00 AM X-RAY EXAM L-S SPINE /3 VWS Returned 09/07/2015 12:00 AM COMPLETE CBC [...] 12:00 AM CONTRAST X-RAY OF SHOULDER Reviewed 01/01/2012 12:00 AM Rocephin 1 gm [facility]#[address]-65 Reviewed 01/16/2012 12:00 AM DRAIN/INJ JOINT/BURSA W/O US Reviewed 01/16/2012 12:00 AM Kenalog per 10Mg Im[facility]#[address]-83(Srinath) Reviewed 02/05/2012 12:[address] ABDOMEN W/O & W/DYE Reviewed 02/05/2012 12:[address] PELVIS W/O & W/DYE Reviewed 05/29/2012 12:00 AM DRAIN/INJ JOINT/BURSA W/O US Reviewed 05/29/2012 12:00 AM SYNVISC, Per 1 Mg (2ml) [facility] [address]-99 Reviewed 06/05/2012 12:00 AM DRAIN/INJ JOINT/BURSA W/O US Reviewed 06/05/2012 12:00 AM SYNVISC, Per 1 Mg (2ml) [facility] [address]-22 Reviewed 06/12/2012 12:00 AM DRAIN/INJ JOINT/BURSA W/O US Reviewed 06/12/2012 12:00 AM SYNVISC, Per 1 Mg (2ml) [facility] [address]-76 Reviewed 07/16/2012 12:00 AM Hepatobiliary ductal system imaging with functional assessment Reviewed 07/16/2012 12:00 AM Decadron 8 mg [facility]#[id number] Reviewed 07/16/2012 12:00 AM Depo-Medrol 80mg [facility]#[id number] Reviewed 07/16/2012 12:00 AM COMPREHEN METABOLIC PANEL Reviewed 07/16/2012 12:00 AM LIPID PANEL Reviewed 07/16/2012 12:00 AM Flu Injection 3 Years And Above [facility]# [address]-16 RHC Reviewed 08/19/2012 12:00 AM METABOLIC PANEL TOTAL CA Reviewed 12/21/2009 12:[address] ABDOMEN W/O & W/DYE Reviewed 10/02/2012 12:00 AM CHEST X-RAY 2VW FRONTAL&LATL Reviewed 10/09/2012 12:00 AM Decadron 8 mg [facility]#[id number] Reviewed 10/09/2012 12:00 AM Depo-Medrol 80mg [facility]#[id number] Reviewed 12/09/2012 12:00 AM CHEST X-RAY 2VW [...] 12:00 AM SYNVISC-ONE, Per 1 Mg (6ml) [facility] [address]-05 Reviewed 02/26/2013 12:[address] NECK SPINE W/O & W/DYE Reviewed 04/07/2013 12:00 AM INJECT TRIGGER POINTS 3/> Reviewed 04/07/2013 12:00 AM Kenalog per 10Mg [facility]#[address]-37(Srinath) Reviewed 07/21/2013 12:00 AM CHEST X-RAY 2VW FRONTAL&LATL Reviewed 07/21/2013 12:00 AM Decadron 8 mg [facility]# [address]-53 Reviewed 07/21/2013 12:00 AM Depo-Medrol 80 mg [facility]#[address]-21 Reviewed 07/21/2013 12:00 AM Rocephin 500 mg [facility]#0028-[address]-82 Reviewed 09/22/2013 12:00 AM CHEST X-RAY 2VW FRONTAL&LATL Returned 10/29/2013 12:00 AM X-RAY EXAM OF ABDOMEN Reviewed 12/08/2013 12:00 AM THER/PROPH/DIAG INJ SC/IM Reviewed 12/08/2013 12:00 AM Decadron, Per 1 Mg [facility]# [address]-26 Reviewed 12/08/2013 12:00 AM Depo-Medrol, Per 80 Mg [facility]#0826-1383-52 Reviewed 12/08/2013 12:00 AM CHEST X-RAY 2VW [...] Returned 01/05/2014 12:00 AM Decadron 8 mg [facility]# [address]-35 Reviewed 01/05/2014 12:00 AM Depo-Medrol 80 mg [facility]#[address]-59 Reviewed 01/05/2014 12:00 AM Rocephin 1 gram [facility]#1250-1681-83 Reviewed 03/15/2010 12:00 AM PROTHROMBIN TIME Reviewed [...] Reviewed 09/28/2010 12:00 AM Kenalog per 10Mg [facility]#[address]-07(Srinath) Reviewed 05/05/2014 12:00 AM DRAIN/INJ JOINT/BURSA W/O US Reviewed 05/05/2014 12:00 AM SYNVISC-ONE, Per 1 Mg (6ml) [facility] [address]-25 Reviewed 05/06/2014 12:00 AM COMPREHEN METABOLIC PANEL [...] Reviewed 11/07/2010 12:00 AM Rocephin 500 mg [facility]#[address]-84 Reviewed 07/14/2014 12:00 AM Fluzone MEDICARE Only Reviewed 11/29/2010 12:00 AM INJECT TRIGGER POINTS 3/> Reviewed 11/29/2010 12:00 AM Kenalog per 10Mg [facility]#[address]-68(Srinath) Reviewed 07/14/2014 12:00 AM Decadron injection Reviewed [...] 4.73 HGB 13.0 g/dLHCT 41.50 %MCV 88.0 fLH 27.50 pgHC 31.30 g/dLRDW CV 16.0 %MPV 9.70 fLPLT [...] Start Date Medicare Part A Medicare RHC [id number] N/A [facility] [place] State [place] [facility] - RHC [facility] [id number] Wednesday, 2015 Medicare Part A Medicare - Lab/Xray [id number] N/A [place] [employer] Medicare [place] [employer] Ins [phone] N/A [place] Medical Assistance [facility] Medical Assistance Prog [id number] N/A Medicare Part B Medicare Of [place] [id number] Friday, February 22, 2008 Medicare Part A Medicare Part A [id number] N/A [facility] - C - [facility]ly [facility] Plan [facility] Comm [id number] Wednesday, September 23, 2015 History of Encounters Visit Date Visit Type Provider 06/07/2016 Office visit Melecio Wilkinson DO 05/03/2016 Office visit Melecio Wilkinson DO 04/11/2016 Office visit Melecio Wilkinson DO 02/17/2016 Office visit Melecio Wilkinson DO 01/19/2016 Office visit Melecio Wilkinson DO 12/20/2015 Office visit Melecio Wilkinson DO 11/21/2015 Office visit Melecio Wilkinson DO 10/17/2015 Office visit Melecio Wilkinson DO 09/26/2015 Office visit Melecio Wiklinson DO 09/07/2015 Office visit Katty CRAIG 08/25/2015 [...] visit Katty CRAIG 07/19/2014 Office visit Katty DURÁNP 07/14/2014 Office [...] DO 12/18/2013 Office visit Janis Navarrete DIRECTOR ORACLE RETAIL 12/08/2013 Office visit Janis Navarrete DIRECTOR ORACLE RETAIL 11/25/2013 Office visit Katty CRAIG 10/29/2013 Office visit Melecio Wilkinson DO 09/22/2013 Office visit aJnis Navarrete DIRECTOR ORACLE RETAIL 07/28/2013 Office visit Katty CRAIG 07/21/2013 Office visit Melecio Wilkinson DO 07/08/2013 Office visit Katty CRAIG 05/06/2013 Office visit Melecio Wilkinson DO 04/07/2013 Office visit Gorge Yo MD 02/26/2013 Office visit Melecio Wilkinson DO 01/29/2013 Office visit Gogre Yo MD 01/06/2013 Office visit Gorge Yo [...] 05/14/2012 Office visit Gorge Yo MD 05/12/2012 [facility] DO 05/11/2012 [facility] DO 03/13/2012 Office visit Gorge [...]
--- OUTSIDE RECORDS SUMMARY | 2018-01-22 12:56 | XMS REPORT ---
Author Author Katty Jefferson [facility] Address [address] [place] [id number] Care Team Providers Care Associate Consulting Engineer Name Role Phone Katty Jefferson PCP Allergies [...] by oral route 2 times a day guaifenesin 600 mg oral tablet extended release 12hr 06/27/2015 Take 1 tablet every 12 hours for cough Carafate 1 gram oral tablet take 1 [...] for 30 days Discontinued by Hospitalist at [place] Augmentin 875-125 mg oral tablet 11/07/2010 03/05/2011 [...] HC BMI BSA BMI Percentile O2 Sat(%) 07/06/2015 2:39:00 PM 136 mmHg 84 mmHg [...] 06/19/2011 12:00 AM Kenalog 40 Mg [facility]#8203-4519-37 Reviewed 11/03/2009 12:00 AM PROTHROMBIN TIME Reviewed 07/26/2011 12:00 AM X-RAY EXAM OF ABDOMEN Reviewed 10/12/2011 12:00 AM EXTREMITY STUDY Reviewed 01/01/2012 12:[address] [facility]#[address]-07 Reviewed 01/16/2012 12:00 AM DRAIN/INJ JOINT/BURSA W/O US Reviewed 01/16/2012 12:00 AM Kenalog per 10Mg [facility]#[address]-33(Srinath) Reviewed 02/05/2012 12:[address] ABDOMEN W/O & W/DYE Reviewed 02/05/2012 12:[address] PELVIS W/O & W/DYE Reviewed 05/29/2012 12:00 AM DRAIN/INJ JOINT/BURSA W/O US Reviewed 05/29/2012 12:00 AM SYNVISC, Per 1 Mg (2ml) [facility] [address]-19 Reviewed 06/05/2012 12:00 AM DRAIN/INJ JOINT/BURSA W/O US Reviewed 06/05/2012 12:00 AM SYNVISC, Per 1 Mg (2ml) [facility] [address]-30 Reviewed 06/12/2012 12:00 AM DRAIN/INJ JOINT/BURSA W/O US Reviewed 06/12/2012 12:00 AM SYNVISC, Per 1 Mg (2ml) [facility] [address]-03 Reviewed 07/16/2012 12:00 AM Hepatobiliary ductal system imaging with functional assessment Reviewed 07/16/2012 12:00 AM Dec[address] [facility]#[id number] Reviewed 07/16/2012 12:00 AM Depo-Medrol 80mg [place]#[id number] Reviewed 07/16/2012 12:00 AM COMPREHEN METABOLIC PANEL Reviewed 07/16/2012 12:00 AM LIPID PANEL Reviewed 07/16/2012 12:00 AM Flu Injection [address] [facility]# [address]-70 RHC Reviewed 08/19/2012 12:00 AM METABOLIC PANEL TOTAL CA Reviewed 12/21/2009 12:[address] ABDOMEN W/O & W/DYE Reviewed 10/02/2012 12:00 AM CHEST X-RAY 2VW FRONTAL&LATL Reviewed 10/09/2012 12:00 AM Decadron [address] [facility]#[id number] Reviewed 10/09/2012 12:00 AM Depo-Medrol 80mg [facility]#[id number] Reviewed 12/09/2012 12:00 AM CHEST X-RAY 2VW [...] AM SYNVISC-ONE, Per 1 Mg (6ml) [facility] [address]-11 Reviewed 02/26/2013 12:[address] NECK SPINE W/O & W/DYE Reviewed 04/07/2013 12:00 AM INJECT TRIGGER POINTS 3/> Reviewed 04/07/2013 12:00 AM Kenalog per 10Mg [facility]#[address]-97(Srinath) Reviewed 07/21/2013 12:00 AM CHEST X-RAY 2VW FRONTAL&LATL Reviewed 07/21/2013 12:00 AM Dec[address] [facility]# [address]-12 Reviewed 07/21/2013 12:00 AM Depo-Medrol [address] [facility]#[address]-09 Reviewed 07/21/2013 12:00 AM Rocephin [address] [facility]#3225-3573-40 Reviewed 09/22/2013 12:00 AM CHEST X-RAY 2VW FRONTAL&LATL Returned 10/29/2013 12:00 AM X-RAY EXAM OF ABDOMEN Reviewed 12/08/2013 12:00 AM THER/PROPH/DIAG INJ SC/IM Reviewed 12/08/2013 12:00 AM Decadron, Per [address] [facility]# [address]-13 Reviewed 12/08/2013 12:00 AM Depo-Medrol, Per [address] [facility]#5755-5244-14 Reviewed 12/08/2013 12:00 AM CHEST X-RAY 2VW [...] Returned 01/05/2014 12:00 AM Dec[address] [facility]# [address]-30 Reviewed 01/05/2014 12:00 AM Depo-Medrol [address] [facility]#[address]-13 Reviewed 01/05/2014 12:00 AM Rocephin [address] [facility]#8190-1589-99 Reviewed 03/15/2010 12:00 AM PROTHROMBIN TIME Reviewed [...] 09/28/2010 12:00 AM Kenalog per 10Mg [facility]#[address]-86(Srinath) Reviewed 05/05/2014 12:00 AM DRAIN/INJ JOINT/BURSA W/O US Reviewed 05/05/2014 12:00 AM SYNVISC-ONE, Per 1 Mg (6ml) [facility] [address]-93 Reviewed 05/06/2014 12:00 AM COMPREHEN METABOLIC PANEL [...] 11/07/2010 12:00 [address] [facility]#[address]-27 Reviewed 07/14/2014 12:00 AM Fluzone MEDICARE Only Reviewed 11/29/2010 12:00 AM INJECT TRIGGER POINTS 3/> Reviewed 11/29/2010 12:00 AM Kenalog per 10Mg [facility]#[address]-45(Srinath) Reviewed 07/14/2014 12:00 AM Decadron injection Reviewed [...] shoulder region, Left Jul 06 2015 2:42PM Payers Insurance Name Company Name Plan Name Plan Number Policy Number Policy Group Number Start Date Medicare Part A Medicare Part A [id number] N/A [place] [employer] Medicare [facility] Life Ins [phone] N/A [place] Medical Assistance [facility] Medical Assistance Prog [id number] N/A Medicare Part B Medicare Of [place] [id number] Friday, 2008 History of Encounters Visit Date Visit Type Provider 07/06/2015 Office visit Katty CRAIG 06/27/2015 Office [...] Ama Barrios MD 09/07/2014 Office visit Melecio [place] DO 08/16/2014 Nurse visit Katty DURÁNP 07/19/2014 Office visit Katty DURÁNP 07/14/2014 Office visit Melecio Jaja DO 06/21/2014 Office visit Katty DURÁNP 05/20/2014 Office visit Melecio Jaja DO 05/14/2014 Office visit Melecio Jaja DO 05/05/2014 Office visit Katty CRAIG 04/26/2014 Office visit Katty CRAIG 03/24/2014 Office visit Katty DURÁNP 02/24/2014 Office visit Katty CRAIG 01/05/2014 Office visit Melecio Jaja DO 12/23/2013 Office visit Katty CRAIG 12/23/2013 Office visit Melecio Jaja DO 12/18/2013 Office visit Janis Navarrete ACOUSTICAL TILE CARPENTERS SUPERVISOR 12/08/2013 Office visit Janis Navarrete ACOUSTICAL TILE CARPENTERS SUPERVISOR 11/25/2013 Office visit Katty CRAIG 10/29/2013 Office visit Melecio Jaja DO 09/22/2013 Office visit Janis Navarrete ACOUSTICAL TILE CARPENTERS SUPERVISOR 07/28/2013 Office visit Katty DURÁNP 07/21/2013 Office visit Melecio Wilkinson DO 07/08/2013 Office visit Katty CRAIG 05/06/2013 Office visit Melecio Wilkinson DO 04/07/2013 Office visit Gorge Yo MD 02/26/2013 Office visit Melecio Wilkinson DO 01/29/2013 Office visit Gorge Yo MD 01/06/2013 Office visit Gorge Yo MD 12/09/2012 [facility] Ama Barrios MD 12/09/2012 Office visit Stephanie Richardson ACOUSTICAL TILE CARPENTERS SUPERVISOR 11/26/2012 Office visit Gorge Yo MD 10/30/2012 [...] 05/14/2012 Office visit Gorge Yo MD 05/12/2012 [facility] DO 05/11/2012 [facility] DO 03/13/2012 Office visit Gorge [...] MD 03/31/2010 Laboratory Alfonso Camacho MD 03/31/2010 [facility] Alfonso aCmacho MD 03/21/2010 Procedures Gorge Yo MD 03/16/2010 [...]
--- OUTSIDE RECORDS SUMMARY | 2018-01-22 12:59 | XMS REPORT ---
Author Author Melecio Wilkinson [facility] Address [address] [place] [phone] Care Team Providers Care Ic Designer Standard Cells Name Role Phone Melecio Wilkinson PCP Unavailable [...] 30 days Lyrica 75 mg oral capsule 05/24/2015 06/23/2015 take 1 capsule by oral route 2 times a day for 30 days sulfamethoxazole-trimethoprim 800-160 mg oral tablet 06/02/2015 06/09/2015 [...] 2 times per day for 5 days zolpidem 10 mg oral tablet 03/02/2015 05/31/2015 take 1 tablet (10 mg) by oral route once daily at bedtime for 30 days Tradjenta 5 mg oral tablet 03/28/2015 [...] for 30 days Discontinued by Hospitalist at [place] Augmentin 875-125 mg oral tablet 11/07/2010 03/05/2011 [...] EVERY 6 HOURS NEEDED NAUSEA prochlorperazine maleate mg oral tablet 10/31/2011 05/14/2012 take 1 [...] HC BMI BSA BMI Percentile O2 Sat(%) 06/02/2015 10:51:00 AM 170 mmHg 100 mmHg [...] Reviewed 06/19/2011 12:00 AM Kenalog 40 Mg [facility]#9263-5924-46 Reviewed 11/03/2009 12:00 AM PROTHROMBIN TIME Reviewed 07/26/2011 12:00 AM X-RAY EXAM OF ABDOMEN Reviewed 10/12/2011 12:00 AM EXTREMITY STUDY Reviewed 01/01/2012 12:00 AM Rocephin 1 gm [facility]#[address]-48 Reviewed 01/16/2012 12:00 AM DRAIN/INJ JOINT/BURSA W/O US Reviewed 01/16/2012 12:00 AM Kenalog per 10Mg [facility]#[address]-64(Srinath) Reviewed 02/05/2012 12:[address] ABDOMEN W/O & W/DYE Reviewed 02/05/2012 12:[address] PELVIS W/O & W/DYE Reviewed 05/29/2012 12:00 AM DRAIN/INJ JOINT/BURSA W/O US Reviewed 05/29/2012 12:00 AM SYNVISC, Per 1 Mg (2ml) [facility] [address]-71 Reviewed 06/05/2012 12:00 AM DRAIN/INJ JOINT/BURSA W/O US Reviewed 06/05/2012 12:00 AM SYNVISC, Per 1 Mg (2ml) [facility] [address]-89 Reviewed 06/12/2012 12:00 AM DRAIN/INJ JOINT/BURSA W/O US Reviewed 06/12/2012 12:00 AM SYNVISC, Per 1 Mg (2ml) [facility] [address]-23 Reviewed 07/16/2012 12:00 AM Hepatobiliary ductal system imaging with functional assessment Reviewed 07/16/2012 12:00 AM Decadron 8 mg [facility]#[id number] Reviewed 07/16/2012 12:00 AM Depo-Medrol 80mg [facility]#[id number] Reviewed 07/16/2012 12:00 AM COMPREHEN METABOLIC PANEL Reviewed 07/16/2012 12:00 AM LIPID PANEL Reviewed 07/16/2012 12:00 AM Flu Injection 3 Years And Above [facility]# [address]-43 RHC Reviewed 08/19/2012 12:00 AM METABOLIC PANEL TOTAL CA Reviewed 12/21/2009 12:[address] ABDOMEN W/O & W/DYE Reviewed 10/02/2012 12:00 AM CHEST X-RAY 2VW FRONTAL&LATL Reviewed 10/09/2012 12:00 AM Decadron 8 mg [facility]#[id number] Reviewed 10/09/2012 12:00 AM Depo-Medrol 80mg [facility]#[id number] Reviewed 12/09/2012 12:00 AM CHEST X-RAY 2VW [...] 12:00 AM SYNVISC-ONE, Per 1 Mg (6ml) [facility] [address]-50 Reviewed 02/26/2013 12:[address] NECK SPINE W/O & W/DYE Reviewed 04/07/2013 12:00 AM INJECT TRIGGER POINTS 3/> Reviewed 04/07/2013 12:00 AM Kenalog per 10Mg [facility]#[address]-96(Srinath) Reviewed 07/21/2013 12:00 AM CHEST X-RAY 2VW FRONTAL&LATL Reviewed 07/21/2013 12:00 AM Decadron 8 mg [facility]# [address]-93 Reviewed 07/21/2013 12:00 AM Depo-Medrol 80 mg [facility]#[address]-29 Reviewed 07/21/2013 12:00 AM Rocephin 500 mg [facility]#8178-2931-43 Reviewed 09/22/2013 12:00 AM CHEST X-RAY 2VW FRONTAL&LATL Returned 10/29/2013 12:00 AM X-RAY EXAM OF ABDOMEN Reviewed 12/08/2013 12:00 AM THER/PROPH/DIAG INJ SC/IM Reviewed 12/08/2013 12:00 AM Decadron, Per 1 Mg [facility]# [address]-48 Reviewed 12/08/2013 12:00 AM Depo-Medrol, Per 80 Mg [facility]#2842-0307-76 Reviewed 12/08/2013 12:00 AM CHEST X-RAY 2VW [...] Returned 01/05/2014 12:00 AM Decadron 8 mg [facility]# [address]-59 Reviewed 01/05/2014 12:00 AM Depo-Medrol 80 mg [facility]#[address]-13 Reviewed 01/05/2014 12:00 AM Rocephin 1 gram [facility]#2787-6224-98 Reviewed 03/15/2010 12:00 AM PROTHROMBIN TIME Reviewed [...] 09/28/2010 12:00 AM Kenalog per 10Mg [facility]#[address]-59(Srinath) Reviewed 05/05/2014 12:00 AM DRAIN/INJ JOINT/BURSA W/O US Reviewed 05/05/2014 12:00 AM SYNVISC-ONE, Per 1 Mg (6ml) [facility] [address]-17 Reviewed 05/06/2014 12:00 AM COMPREHEN METABOLIC PANEL [...] Reviewed 11/07/2010 12:00 AM Rocephin 500 mg [facility]#[address]-06 Reviewed 07/14/2014 12:00 AM Fluzone MEDICARE Only Reviewed 11/29/2010 12:00 AM INJECT TRIGGER POINTS 3/> Reviewed 11/29/2010 12:00 AM Kenalog per 10Mg -[facility]#[address]-04(Srinath) Reviewed 07/14/2014 12:00 AM Decadron injection Reviewed [...] 3.30 mg/dLeGFR 45 VITAMIN D 17.60 ng/mL History Of Immunizations Not available. History of [...] 9:32AM Bronchitis, Acute Jun 02 2015 10:53AM Payers Insurance Name Company Name Plan Name Plan Number Policy Number Policy Group Number Start Date Medicare Part A Medicare Part A [id number] N/A [place] Medicare [place] [facility] Ins [phone] N/A [place] Medical Assistance [facility] Medical Assistance Prog [id number] N/A Medicare Part B Medicare Of [place] [id number] Friday, 2008 History of Encounters Visit Date Visit Type Provider 06/02/2015 Office visit Melecio Wilkinson DO 05/16/2015 Office visit Katty CRAIG 05/16/2015 Office visit Melecio Wilkinson DO 05/09/2015 Office visit Melecio Wilkinson DO 04/26/2015 Office visit Katty CRAGI 04/08/2015 Office visit Melecio Wilkinson DO 04/07/2015 Voided Melecio Wilkinson DO 03/29/2015 Office visit Katty CRAIG 03/28/2015 Office visit Melecio Wilkinson DO 03/15/2015 Office visit Katty CRAIG 02/28/2015 Office visit Melecio Wilkinson DO 02/17/2015 Office visit Melecio Cruzte DO 02/17/2015 Office visit Katty CRAIG 01/19/2015 Office visit Katty CRAIG 01/13/2015 Office visit Melecio Willhite DO 01/12/2015 Office visit Katty CRAIG 12/16/2014 [facility] MD 12/14/2014 Voided Melecio Willhite DO 12/08/2014 Office visit Alfa Platt MD 12/08/2014 Office visit Melecio [place] DO 12/07/2014 Nurse visit Riri Salazar MD 12/02/2014 [facility] MD 12/02/2014 [facility] [...] visit Katty CRAIG 12/23/2013 Office visit Melecio Wilkinosn DO 12/18/2013 Office visit Janis Navarrete APRN [...] Barrios MD 12/09/2012 Office visit Stephanienereida Richardson METAL DIE FINISHER 11/26/2012 Office visit Gorge Yo MD 10/30/2012 [...] 05/14/2012 Office visit Gorge Yo MD 05/12/2012 [facility] DO 05/11/2012 [facility] 03/13/2012 Office visit Gorge Yo [...] Alfonso Camacho MD 03/31/2010 [facility] Alfonso Camacho MD 03/21/2010 Procedures Gorge [...]
--- OUTSIDE RECORDS SUMMARY | 2018-01-22 13:03 | XMS REPORT ---
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 Name Role Phone Melecio Wilkinson PCP Unavailable [...] Neb Treatment - Albuterol 01/01/2012 12:00 AM URINALYSIS ROUTINE C&S IF IND 11/01/2016 12:00 AM EKG (12-lead electrocardiogram) 12/09/2012 12:00 [...] (150 mg) by oral route once daily Lyrica 50 mg oral capsule 10/26/2016 take 1 capsule (50 mg) by oral route 2 times per day Singulair 10 mg oral tablet 10/26/2016 take 1 tablet (10 mg) by oral route once daily in the evening oxycodone 20 mg oral tablet 10/29/2016 11/28/2016 take 1 tablet by oral route every 6 hours as needed for 30 days pain oxycodone 30 mg oral tablet,oral only,ext.rel.12 hr 10/29/2016 11/28/2016 take 1 tablet (30 mg) by oral [...] 7 days zolpidem 10 mg oral tablet 08/28/2016 10/27/2016 [...] for 30 days Discontinued by Hospitalist at [place] niacin 500 mg oral tablet 10/10/2016 take [...] HC BMI BSA BMI Percentile O2 Sat(%) 10/23/2016 2:26:00 PM 136 mmHg 80 mmHg [...] 10 Mg [facility]#5013-0568-19 Reviewed 06/19/2011 12:00 AM DRAIN/INJ JOINT/BURSA W/O US Reviewed 06/19/2011 12:00 AM Kenalog 40 Mg [facility]#6090-1412-74 Reviewed 08/25/2015 12:00 AM OFFICE/OUTPATIENT VISIT EST Reviewed 08/23/2015 12:00 AM Decadron, Per 1 Mg [facility]# [address]-69 Reviewed 08/23/2015 12:00 AM Depo-Medrol, Per 80 Mg [facility]#[address]-23 Reviewed 09/07/2015 12:00 AM X-RAY EXAM L-S [...] Mg [facility]# [address]-85 Reviewed 08/08/2016 12:00 AM Depo-Medrol, Per 80 Mg [facility]#[address]-07 Reviewed 01/01/2012 12:00 AM Rocephin 1 gm [facility]#[address]-73 Reviewed 01/16/2012 12:00 AM DRAIN/INJ JOINT/BURSA W/O US Reviewed 01/16/2012 12:00 AM Kenalog per 10Mg [facility]#[address]-37(Srinath) Reviewed 09/26/2016 12:00 AM CHEST X-RAY 2VW FRONTAL&LATL Reviewed 10/23/2016 12:00 AM INJECT SPINE LUMBAR/SACRAL Reviewed 02/05/2012 12:[address] ABDOMEN W/O & W/DYE Reviewed 02/05/2012 12:[address] PELVIS W/O & W/DYE Reviewed 05/29/2012 12:00 AM DRAIN/INJ JOINT/BURSA W/O US Reviewed 05/29/2012 12:00 AM SYNVISC, Per 1 Mg (2ml) [facility] [address]-50 Reviewed 06/05/2012 12:00 AM DRAIN/INJ JOINT/BURSA W/O US Reviewed 06/05/2012 12:00 AM SYNVISC, Per 1 Mg (2ml) [facility] [address]-77 Reviewed 06/12/2012 12:00 AM DRAIN/INJ JOINT/BURSA W/O US Reviewed 06/12/2012 12:00 AM SYNVISC, Per 1 Mg (2ml) [facility] [address]-30 Reviewed 07/16/2012 12:00 AM Hepatobiliary ductal system imaging with functional assessment Reviewed 07/16/2012 12:00 AM Decadron 8 mg [facility]#30271761385 Reviewed 07/16/2012 12:00 AM Depo-Medrol 80mg [facility]#81625302238 Reviewed 07/16/2012 12:00 AM COMPREHEN METABOLIC PANEL Reviewed 07/16/2012 12:00 AM LIPID PANEL Reviewed 07/16/2012 12:00 AM Flu Injection 3 Years And Above [facility]# [address]-85 RHC Reviewed 08/19/2012 12:00 AM METABOLIC PANEL TOTAL CA Reviewed 12/21/2009 12:[address] ABDOMEN W/O & W/DYE Reviewed 10/02/2012 12:00 AM CHEST X-RAY 2VW FRONTAL&LATL Reviewed 10/09/2012 12:00 AM Decadron 8 mg [facility]#[id number] Reviewed 10/09/2012 12:00 AM Depo-Medrol 80mg [facility]#51183222267 Reviewed 12/09/2012 12:00 AM CHEST X-RAY 2VW [...] (6ml) [facility] [address]-52 Reviewed 02/26/2013 12:[address] NECK SPINE W/O & W/DYE Reviewed 04/07/2013 12:00 AM INJECT TRIGGER POINTS 3/> Reviewed 04/07/2013 12:00 AM Kenalog per 10Mg [facility]#[address]-47(Srinath) Reviewed 07/21/2013 12:00 AM CHEST X-RAY 2VW FRONTAL&LATL Reviewed 07/21/2013 12:00 AM Decadron 8 mg [facility]# [address]-07 Reviewed 07/21/2013 12:00 AM Depo-Medrol 80 mg [facility]#[address]-31 Reviewed 07/21/2013 12:00 AM Rocephin 500 mg [facility]#7144-0272-47 Reviewed 09/22/2013 12:00 AM CHEST X-RAY 2VW FRONTAL&LATL Reviewed 10/29/2013 12:00 AM X-RAY EXAM OF ABDOMEN Reviewed 12/08/2013 12:00 AM THER/PROPH/DIAG INJ SC/IM Reviewed 12/08/2013 12:00 AM Decadron, Per 1 Mg [facility]# [address]-82 Reviewed 12/08/2013 12:00 AM Depo-Medrol, Per 80 Mg [facility]#3743-6435-97 Reviewed 12/08/2013 12:00 AM CHEST X-RAY 2VW [...] mg [facility]# [address]-80 Reviewed 01/05/2014 12:00 AM Depo-Medrol 80 mg [facility]#[address]-95 Reviewed 01/05/2014 12:00 AM Rocephin 1 gram [facility]#9121-0949-80 Reviewed 03/15/2010 12:00 AM PROTHROMBIN TIME Reviewed [...] Kenalog per 10Mg [facility]#[address]-87(Srinath) Reviewed 05/05/2014 12:00 AM DRAIN/INJ JOINT/BURSA W/O US Reviewed 05/05/2014 12:00 AM SYNVISC-ONE, Per 1 Mg (6ml) [facility] [address]-49 Reviewed 05/06/2014 12:00 AM COMPREHEN METABOLIC PANEL [...] 500 mg [facility]#[address]-98 Reviewed 07/14/2014 12:00 AM Fluzone MEDICARE Only Reviewed 11/29/2010 12:00 AM INJECT TRIGGER POINTS 3/> Reviewed 11/29/2010 12:00 AM Kenalog per 10Mg [facility]#[address]-14(Srinath) Reviewed 07/14/2014 12:00 AM Decadron injection Reviewed [...] CVX Pneumococcal 07/09/2016 [facility] Prevnar 13 [id number] Intramuscular Right Deltoid 07/09/2016 07/28/2015 133 History [...] 6 2013 9:08AM Diabetes Mellitus, Type II Oct [...] joint; Knee,right b 2014 2:04PM Cervical radiculopathy Fe2014 2:04PM Myofascial [...] 2016 2:28PM Dysuria Nov 01 2016 1:56PM Payers Insurance Name Company Name Plan Name Plan Number Policy Number Policy Group Number Start Date Medicare RHC Medicare RHC [id number] N/[place] [employer] [place] [employer] [id number] N/A [employer] [place] [employer] Medicare [place] [employer] [id number] N/A [place] Medical Assistance [facility] Medical Assistance Prog [id number] N/A Medicare Part B Medicare Of [place] [id number] Friday, 2008 Medicare Part A Medicare Part A [id number] N/A [facility] - RHC - Community Plan [facility] RHC Comm [id number] Wednesday, 2015 [employer] - [place] [employer] [place] [id number] Wednesday, 2015 Medicare Part A Medicare - Lab/Xray [id number] N/A History of Encounters Visit Date Visit Type Provider 10/23/2016 Office visit Melecio Wilkinson DO 10/10/2016 Office visit Melecio Jaja DO [...] DO 01/12/2015 Office visit Katty CRAIG 12/16/2014 [facility] Alfa Platt MD 12/14/2014 Voided Melecio Jaja DO 12/08/2014 Office visit Alfa Platt MD 12/08/2014 Office visit Melecio Cruzte DO 12/07/2014 Nurse visit Riri Salazar MD 12/02/2014 [facility] Alfa Platt MD 12/02/2014 [facility] Magi Powers MD 11/29/2014 [facility] Magi Powers MD 11/29/2014 Voided Katty CRAIG 11/11/2014 Office visit 11/11/2014 Office visit Katty CRAIG 11/11/2014 Office visit Melecio Jaja DO 10/14/2014 Office visit Katty CRAIG 09/14/2014 Office visit Katty CRAIG 09/08/2014 [facility] Ama Barrios MD 09/07/2014 Office visit Melecio Jaja DO 08/16/2014 Nurse visit Katty CRAIG 07/19/2014 Office visit Katty Jefferson INSECTICIDE SPRAYER 07/14/2014 Office visit Melecio Jaja DO 06/21/2014 Office visit Katty Jefferson INSECTICIDE SPRAYER 05/20/2014 Office visit Melecio Wilkinson DO 05/14/2014 Office visit Melecio Wilkinson DO 05/05/2014 Office visit Katty DURÁNP 04/26/2014 Office visit Katty DURÁNP 03/24/2014 Office visit Katty CRAIG 02/24/2014 Office visit Katty DURÁNP 01/05/2014 Office visit Melecio Jaja DO 12/23/2013 Office visit Katty DURÁNP 12/23/2013 Office visit Melecio Wilkinson DO 12/18/2013 Office visit Janis Landon CONTACT LENS FLASHING PUNCHER 12/08/2013 Office visit Janis Landon CONTACT LENS FLASHING PUNCHER 11/25/2013 Office visit Katty DURÁNP 10/29/2013 Office visit Melecio Wilkinson DO 09/22/2013 Office visit Janis Navarrete CONTACT LENS FLASHING PUNCHER 07/28/2013 Office visit Katty CRAIG 07/21/2013 Office visit Melecio Wilkinson DO 07/08/2013 Office visit Katty CRAIG 05/06/2013 Office visit Melecio Wilkinson DO 04/07/2013 Office visit Gorge Yo MD 02/26/2013 Office visit Melecio Wilkinson DO 01/29/2013 Office visit Gorge Yo MD 01/06/2013 Office visit Gorge Yo MD 12/09/2012 [facility] Ama Barrios MD 12/09/2012 Office visit Stephanie Richardson APRN 11/26/2012 Office visit Gorge Yo MD 10/30/2012 [facility] Gorge Yo MD 10/29/2012 [...] Office visit Gorge Yo MD 05/12/2012 [facility] DO 05/11/2012 [facility] DO 03/13/2012 Office visit Gorge [...] 03/05/2011 Office visit Melecio Wilkinson DO 02/06/2011 [facility] Gorge Yo MD 01/08/2011 Office visit Melecio Wilkinson DO 12/27/2010 Office visit Gorge Yo MD 11/29/2010 Office visit Gorge Yo MD 11/07/2010 Office visit Melecio Wilkinson DO 09/28/2010 Office visit Gorge Yo MD 09/05/2010 [facility] Gorge Yo MD 08/28/2010 Office visit Gorge Yo MD 08/07/2010 Office visit Janis Navarrete APRN 07/25/2010 Office visit Melecio Wilkinson DO 06/27/2010 Office visit Gorge Yo MD 06/14/2010 Office visit Melecio Wilkinson DO 06/06/2010 Laboratory Alfonso Camacho MD 06/01/2010 Office visit Melecio Wilkinson DO 04/17/2010 Office visit Melecio Wilkinson DO 04/06/2010 Office visit Gorge Yo MD 04/02/2010 [facility] Alfonso Camacho MD 03/31/2010 [...]
--- OUTSIDE RECORDS SUMMARY | 2018-01-22 13:07 | XMS REPORT ---
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 Role Phone Melecio Wilkinson PCP Melecio [...] 07/11/2015 12:00 AM Kenalog, Per 10 Mg [facility]#0158-2214-05 Reviewed 12/07/2014 12:00 AM OFFICE/OUTPATIENT VISIT EST Reviewed 06/19/2011 12:00 AM DRAIN/INJ JOINT/BURSA W/O US Reviewed 06/19/2011 12:00 AM Kenalog 40 Mg [facility]#6684-5926-55 Reviewed 08/25/2015 12:00 AM OFFICE/OUTPATIENT VISIT EST Reviewed 08/23/2015 12:00 AM Decadron, Per 1 Mg [facility]# [address]-77 Reviewed 08/23/2015 12:00 AM Depo-Medrol, Per 80 Mg [facility]#[address]-55 Reviewed 09/07/2015 12:00 AM X-RAY EXAM L-S [...] 12:00 AM Decadron, Per 1 Mg [place]# [address]-36 Reviewed 10/23/2015 12:00 AM Depo-Medrol, Per 80 Mg [facility]#[address]-89 Reviewed 07/26/2011 12:00 AM X-RAY EXAM OF ABDOMEN Reviewed 11/21/2015 12:00 AM Orthopedics Consultation Reviewed 11/21/2015 12:00 AM Physical Therapy Consultation Reviewed 12/20/2015 12:00 AM EXTREMITY STUDY Reviewed 10/12/2011 12:00 AM EXTREMITY STUDY Reviewed 05/10/2016 12:00 AM CONTRAST X-RAY OF SHOULDER Reviewed 07/09/2016 12:00 AM PNEUMOCOCCAL VACC 13 RIP IM Reviewed 08/08/2016 12:00 AM Decadron, Per 1 Mg [facility]# [address]-45 Reviewed 08/08/2016 12:00 AM Depo-Medrol, Per 80 Mg [facility]#[address]-47 Reviewed 01/01/2012 12:00 AM AIRWAY INHALATION TREATMENT Reviewed 01/01/2012 12:00 AM Rocephin 1 gm [facility]#[address]-42 Reviewed 01/16/2012 12:00 AM DRAIN/INJ JOINT/BURSA W/O US Reviewed 01/16/2012 12:00 AM Kenalog per 10Mg [facility]#[address]-30(Srinath) Reviewed 09/26/2016 12:00 AM CHEST X-RAY 2VW [...] 12:00 AM SYNVISC, Per 1 Mg (2ml) [facility] [address]-22 Reviewed 06/05/2012 12:00 AM DRAIN/INJ JOINT/BURSA W/O US Reviewed 06/05/2012 12:00 AM SYNVISC, Per 1 Mg (2ml) [facility] [address]-00 Reviewed 06/12/2012 12:00 AM DRAIN/INJ JOINT/BURSA W/O US Reviewed 06/12/2012 12:00 AM SYNVISC, Per 1 Mg (2ml) [facility] [address]-60 Reviewed 06/06/2017 12:00 AM Decadron 4mg Injection Reviewed 06/06/2017 12:00 AM Depo-Medrol 40mg Injection Reviewed 06/06/2017 12:[address] ABD & PELV 1/> REGNS Reviewed 07/16/2012 12:00 AM Hepatobiliary ductal system imaging with functional assessment Reviewed 07/16/2012 12:00 AM Decadron 8 mg [facility]#[id number] Reviewed 07/16/2012 12:00 AM Depo-Medrol 80mg [facility]#30596287262 Reviewed 07/16/2012 12:00 AM COMPREHEN METABOLIC PANEL Reviewed 07/16/2012 12:00 AM LIPID PANEL Reviewed 07/16/2012 12:00 AM Flu Injection 3 Years And Above [facility]# [address]-24 RHC Reviewed 08/19/2012 12:00 AM METABOLIC PANEL TOTAL CA Reviewed 12/21/2009 12:[address] ABDOMEN W/O & W/DYE Reviewed 10/02/2012 12:00 AM CHEST X-RAY 2VW FRONTAL&LATL Reviewed 10/09/2012 12:00 AM Decadron 8 mg [facility]#86448207173 Reviewed 10/09/2012 12:00 AM Depo-Medrol 80mg [facility]#12219202671 Reviewed 12/09/2012 12:00 AM CHEST X-RAY 2VW [...] 12:00 AM SYNVISC-ONE, Per 1 Mg (6ml) [facility] [address]-99 Reviewed 02/26/2013 12:00 AM Physical Therapy Reviewed 02/26/2013 12:[address] NECK SPINE W/O & W/DYE Reviewed 04/07/2013 12:00 AM INJECT TRIGGER POINTS 3/> Reviewed 04/07/2013 12:00 AM Kenalog per 10Mg [facility]#[address]-09(Srinath) Reviewed 07/21/2013 12:00 AM CHEST X-RAY 2VW FRONTAL&LATL Reviewed 07/21/2013 12:00 AM Decadron 8 mg [facility]# [address]-36 Reviewed 07/21/2013 12:00 AM Depo-Medrol 80 mg [facility]#[address]-57 Reviewed 07/21/2013 12:00 AM Rocephin 500 mg [facility]#7010-8366-16 Reviewed 09/22/2013 12:00 AM CHEST X-RAY 2VW FRONTAL&LATL Reviewed 10/29/2013 12:00 AM X-RAY EXAM OF ABDOMEN Reviewed 12/08/2013 12:00 AM THER/PROPH/DIAG INJ SC/IM Reviewed 12/08/2013 12:00 AM Decadron, Per 1 Mg [facility]# [address]-38 Reviewed 12/08/2013 12:00 AM Depo-Medrol, Per 80 Mg [facility]#5513-1023-05 Reviewed 12/08/2013 12:00 AM CHEST X-RAY 2VW [...] Reviewed 01/05/2014 12:00 AM Decadron 8 mg [facility]# [address]-94 Reviewed 01/05/2014 12:00 AM Depo-Medrol 80 mg [facility]#[address]-64 Reviewed 01/05/2014 12:00 AM Rocephin 1 gram [facility]#0091-4449-31 Reviewed 03/15/2010 12:00 AM PROTHROMBIN TIME Reviewed [...] 12:00 AM Kenalog per 10Mg [facility]#[address]-88(Srinath) Reviewed 05/05/2014 12:00 AM DRAIN/INJ JOINT/BURSA W/O US Reviewed 05/05/2014 12:00 AM SYNVISC-ONE, Per 1 Mg (6ml) [facility] [address]-52 Reviewed 05/06/2014 12:00 AM COMPREHEN METABOLIC PANEL [...] Reviewed 11/07/2010 12:00 AM Rocephin 500 mg [facility]#[address]-00 Reviewed 07/14/2014 12:00 AM Fluzone MEDICARE Only Reviewed 11/29/2010 12:00 AM INJECT TRIGGER POINTS 3/> Reviewed 11/29/2010 12:00 AM Kenalog per 10Mg [facility]#[address]-84(Srinath) Reviewed 07/14/2014 12:00 AM Decadron injection Reviewed [...] CVX Pneumococcal 07/09/2016 [facility] Prevnar 13 [id number] Intramuscular Right Deltoid 07/09/2016 07/28/2015 133 History [...] Number Start Date Medicare RHC Medicare RHC [id number] N/[place] [employer] [employer] [place] [id number] N/A [place] [employer] Medicare [place] [employer] Ins [id number] N/A [place] Medical Assistance Program [place] Medical Assistance Prog [id number] N/A Medicare Part B Medicare Of [place] [id number] Friday, 2008 Medicare Part A Medicare Part A [id number] N/A [employer] - RHC - Community Plan [facility] RHC Comm [id number] Wednesday, 2015 [employer] [place] [employer] [place] [id number] Wednesday, 2015 Medicare Part A Medicare - Lab/Xray [id number] N/A History of Encounters Visit Date Visit [...] 01/09/2017 Office visit Melecio Jaja DO 01/01/2017 [facility] Seth Devlin DO 12/31/2016 Hospital [...] MD 05/12/2012 [facility] DO 05/11/2012 [facility] DO 03/13/2012 Office visit Gorge [...]
--- OUTSIDE RECORDS SUMMARY | 2018-01-22 13:10 | XMS REPORT ---
Author Author Katty Jefferson [facility] Address [address] [place] [phone] Care Team Providers Care Web Press Operator Apprentice Name Role Phone Katty Jefferson PCP Allergies [...] for 30 days Discontinued by Hospitalist at [place] Augmentin 875-125 mg oral tablet 11/07/2010 03/05/2011 [...] Reviewed 06/19/2011 12:00 AM Kenalog 40 Mg [facility]#9173-5261-38 Reviewed 11/03/2009 12:00 AM PROTHROMBIN TIME Reviewed 07/26/2011 12:00 AM X-RAY EXAM OF ABDOMEN Reviewed 10/12/2011 12:00 AM EXTREMITY STUDY Reviewed 01/01/2012 12:00 AM Rocephin 1 gm [facility]#[address]-58 Reviewed 01/16/2012 12:00 AM DRAIN/INJ JOINT/BURSA W/O US Reviewed 01/16/2012 12:00 AM Kenalog per 10Mg [facility]#[address]-92(Srinath) Reviewed 02/05/2012 12:[address] ABDOMEN W/O & W/DYE Reviewed 02/05/2012 12:[address] PELVIS W/O & W/DYE Reviewed 05/29/2012 12:00 AM DRAIN/INJ JOINT/BURSA W/O US Reviewed 05/29/2012 12:00 AM SYNVISC, Per 1 Mg (2ml) [facility] [address]-67 Reviewed 06/05/2012 12:00 AM DRAIN/INJ JOINT/BURSA W/O US Reviewed 06/05/2012 12:00 AM SYNVISC, Per 1 Mg (2ml) [facility] [address]-22 Reviewed 06/12/2012 12:00 AM DRAIN/INJ JOINT/BURSA W/O US Reviewed 06/12/2012 12:00 AM SYNVISC, Per 1 Mg (2ml) [facility] [address]-49 Reviewed 07/16/2012 12:00 AM Hepatobiliary ductal system imaging with functional assessment Reviewed 07/16/2012 12:00 AM Decadron 8 mg [facility]#96920217872 Reviewed 07/16/2012 12:00 AM Depo-Medrol 80mg [facility]#38958806778 Reviewed 07/16/2012 12:00 AM COMPREHEN METABOLIC PANEL Reviewed 07/16/2012 12:00 AM LIPID PANEL Reviewed 07/16/2012 12:00 AM Flu Injection 3 Years And Above [facility]# [address]-94 RHC Reviewed 08/19/2012 12:00 AM METABOLIC PANEL TOTAL CA Reviewed 12/21/2009 12:[address] ABDOMEN W/O & W/DYE Reviewed 10/02/2012 12:00 AM CHEST X-RAY 2VW FRONTAL&LATL Reviewed 10/09/2012 12:00 AM Decadron 8 mg [facility]#07625347504 Reviewed 10/09/2012 12:00 AM Depo-Medrol 80mg [facility]#40224796151 Reviewed 12/09/2012 12:00 AM CHEST X-RAY 2VW [...] Mg (6ml) [facility] [address]-36 Reviewed 02/26/2013 12:[address] NECK SPINE W/O & W/DYE Reviewed 04/07/2013 12:00 AM INJECT TRIGGER POINTS 3/> Reviewed 04/07/2013 12:00 AM Kenalog per 10Mg [facility]#[address]-01(Srinath) Reviewed 07/21/2013 12:00 AM CHEST X-RAY 2VW FRONTAL&LATL Reviewed 07/21/2013 12:00 AM Decadron 8 mg [place]# [address]-30 Reviewed 07/21/2013 12:00 AM Depo-Medrol 80 mg [place]#[address]-39 Reviewed 07/21/2013 12:00 AM Rocephin 500 mg [facility]#2275-0533-18 Reviewed 09/22/2013 12:00 AM CHEST X-RAY 2VW FRONTAL&LATL Returned 10/29/2013 12:00 AM X-RAY EXAM OF ABDOMEN Reviewed 12/08/2013 12:00 AM THER/PROPH/DIAG INJ SC/IM Reviewed 12/08/2013 12:00 AM Decadron, Per 1 Mg ND# [address]-56 Reviewed 12/08/2013 12:00 AM Depo-Medrol, Per 80 Mg [facility]#4748-0122-87 Reviewed 12/08/2013 12:00 AM CHEST X-RAY 2VW [...] 8 mg [facility]# [address]-05 Reviewed 01/05/2014 12:00 AM Depo-Medrol 80 mg [facility]#[address]-55 Reviewed 01/05/2014 12:00 AM Rocephin 1 gram ND#1738-2126-44 Reviewed 03/15/2010 12:00 AM PROTHROMBIN TIME Reviewed [...] Reviewed 09/28/2010 12:00 AM Kenalog per 10Mg [facility]#[address]-87(Srinath) Reviewed 05/05/2014 12:00 AM DRAIN/INJ JOINT/BURSA W/O US Reviewed 05/05/2014 12:00 AM SYNVISC-ONE, Per 1 Mg (6ml) [facility] [address]-06 Reviewed 05/06/2014 12:00 AM COMPREHEN METABOLIC PANEL [...] Rocephin 500 mg [facility]#[address]-22 Reviewed 07/14/2014 12:00 AM Fluzone MEDICARE Only Reviewed 11/29/2010 12:00 AM INJECT TRIGGER POINTS 3/> Reviewed 11/29/2010 12:00 AM Kenalog per 10Mg [facility]#[address]-56(Srinath) Reviewed 07/14/2014 12:00 AM Decadron injection Reviewed [...] dLTOTAL BILI 0.40 mg/dLCALCIUM 9.0 mg/dLeGFR 48 History Of Immunizations Not available. History of [...] Date Medicare Part A Medicare Part A [id number] N/A [employer] [place] [employer] Medicare [place] [employer] [id number] N/A [facility] Assistance [facility] Medical Assistance Prog [id number] N/A Medicare Part B Medicare Of [place] [id number] Friday, 2008 History of Encounters Visit Date [...] [facility] Magi Powers MD 11/29/2014 [facility] Magi Powers MD 11/29/2014 Voided Katty CRAIG 11/11/2014 Office visit Katty CRAIG 11/11/2014 Office visit Melecio Jaja DO 10/14/2014 Office visit Katty CRAIG 09/14/2014 Office visit Katty CRAIG 09/08/2014 [facility] Ama Barrios MD 09/07/2014 Office visit Melecio Jaja DO 08/16/2014 Nurse visit Katty CRAIG 07/19/2014 Office visit Katty Jefferson MEDIA PLANNER / BUYER 07/14/2014 Office visit Melecio Jaja DO 06/21/2014 Office visit Katty Jefferson MEDIA PLANNER / BUYER 05/20/2014 Office visit Melecio Wilkinson DO 05/14/2014 Office visit Melecio Wilkinson DO 05/05/2014 Office visit Katty DURÁNP 04/26/2014 Office visit Katty DURÁNP 03/24/2014 Office visit Katty CRAIG 02/24/2014 Office visit Katty DURÁNP 01/05/2014 Office visit Melecio Jaja DO 12/23/2013 Office visit Katty DURÁNP 12/23/2013 Office visit Melecio Wilkinson DO 12/18/2013 Office visit Janis Landon BRAKE TESTER 12/08/2013 Office visit Janis Landon BRAKE TESTER 11/25/2013 Office visit Katty DURÁNP 10/29/2013 Office visit Melecio Wilkinson DO 09/22/2013 Office visit Janis Navarrete BRAKE TESTER 07/28/2013 Office visit Katty CRAIG 07/21/2013 Office visit Melecio Wilkinson DO 07/08/2013 Office visit Katty CRAIG 05/06/2013 Office visit Melecio Wilkinson DO 04/07/2013 Office visit Gorge Yo MD 02/26/2013 Office visit Melecio Wilkinson DO 01/29/2013 Office visit Gorge Yo MD 01/06/2013 Office visit Gorge Yo MD 12/09/2012 [facility] Ama Barrios MD 12/09/2012 Office visit [...] 05/14/2012 Office visit Gorge Yo MD 05/12/2012 [facility] DO 05/11/2012 [facility] DO 03/13/2012 Office visit [...]
--- OUTSIDE RECORDS SUMMARY | 2018-01-22 13:13 | XMS REPORT ---
Author Author Katty Jefferson [facility] Address [address] [place] [id number] Care Team Providers Care Residential Driver Name Role Phone Katty Jefferson PCP Allergies [...] 1 tablet every 12 hours for cough sulfamethoxazole-trimethoprim 800-160 mg oral tablet 07/29/2015 08/05/2015 [...] for 30 days Discontinued by Hospitalist at [place] Augmentin 875-125 mg oral tablet 11/07/2010 03/05/2011 [...] dose adjustments of gabapentin for renal function amoxicillin-pot clavulanate 500-125 mg oral tablet 07/28/2015 07/29/2015 take 1 tablet by oral route every 12 hours for 7 days Problem List Description Status [...] 40 Mg Im-[facility]#5498-4573-46 Reviewed 11/03/2009 12:00 AM PROTHROMBIN TIME Reviewed 07/26/2011 12:00 AM X-RAY EXAM OF ABDOMEN Reviewed 10/12/2011 12:00 AM EXTREMITY STUDY Reviewed 01/01/2012 12:00 AM Rocephin 1 gm [facility]#[address]-04 Reviewed 01/16/2012 12:00 AM DRAIN/INJ JOINT/BURSA W/O US Reviewed 01/16/2012 12:00 AM Kenalog per 10Mg Im-[facility]#[address]-28(Srinath) Reviewed 02/05/2012 12:[address] ABDOMEN W/O & W/DYE Reviewed 02/05/2012 12:[address] PELVIS W/O & W/DYE Reviewed 05/29/2012 12:00 AM DRAIN/INJ JOINT/BURSA W/O US Reviewed 05/29/2012 12:00 AM SYNVISC, Per 1 Mg (2ml) [facility] [address]-96 Reviewed 06/05/2012 12:00 AM DRAIN/INJ JOINT/BURSA W/O US Reviewed 06/05/2012 12:00 AM SYNVISC, Per 1 Mg (2ml) [facility] [address]-02 Reviewed 06/12/2012 12:00 AM DRAIN/INJ JOINT/BURSA W/O US Reviewed 06/12/2012 12:00 AM SYNVISC, Per 1 Mg (2ml) [facility] [address]-32 Reviewed 07/16/2012 12:00 AM Hepatobiliary ductal system imaging with functional assessment Reviewed 07/16/2012 12:00 AM Decadron 8 mg [facility]#[id number] Reviewed 07/16/2012 12:00 AM Depo-Medrol 80mg [facility]#26083726208 Reviewed 07/16/2012 12:00 AM COMPREHEN METABOLIC PANEL Reviewed 07/16/2012 12:00 AM LIPID PANEL Reviewed 07/16/2012 12:00 AM Flu Injection 3 Years And Above [facility]# [address]-10 RHC Reviewed 08/19/2012 12:00 AM METABOLIC PANEL TOTAL CA Reviewed 12/21/2009 12:[address] ABDOMEN W/O & W/DYE Reviewed 10/02/2012 12:00 AM CHEST X-RAY 2VW FRONTAL&LATL Reviewed 10/09/2012 12:00 AM Decadron 8 mg [facility]#30489372891 Reviewed 10/09/2012 12:00 AM Depo-Medrol 80mg [facility]#53084110131 Reviewed 12/09/2012 12:00 AM CHEST X-RAY 2VW [...] 12:00 AM SYNVISC-ONE, Per 1 Mg (6ml) [facility] [address]-93 Reviewed 02/26/2013 12:[address] NECK SPINE W/O & W/DYE Reviewed 04/07/2013 12:00 AM INJECT TRIGGER POINTS 3/> Reviewed 04/07/2013 12:00 AM Kenalog per 10Mg Im-Nd#[address]-61(Srinath) Reviewed 07/21/2013 12:00 AM CHEST X-RAY 2VW FRONTAL&LATL Reviewed 07/21/2013 12:00 AM Decadron 8 mg ND# [address]-12 Reviewed 07/21/2013 12:00 AM Depo-Medrol 80 mg [facility]#[address]-74 Reviewed 07/21/2013 12:00 AM Rocephin 500 mg ND#8193-8498-10 Reviewed 09/22/2013 12:00 AM CHEST X-RAY 2VW FRONTAL&LATL Returned 10/29/2013 12:00 AM X-RAY EXAM OF ABDOMEN Reviewed 12/08/2013 12:00 AM THER/PROPH/DIAG INJ SC/IM Reviewed 12/08/2013 12:00 AM Decadron, Per 1 Mg [facility]# [address]-44 Reviewed 12/08/2013 12:00 AM Depo-Medrol, Per 80 Mg ND#0374-0006-62 Reviewed 12/08/2013 12:00 AM CHEST X-RAY 2VW [...] Returned 01/05/2014 12:00 AM Decadron 8 mg [facility]# [address]-32 Reviewed 01/05/2014 12:00 AM Depo-Medrol 80 mg [facility]#[address]-26 Reviewed 01/05/2014 12:00 AM Rocephin 1 gram ND#4516-8306-07 Reviewed 03/15/2010 12:00 AM PROTHROMBIN TIME Reviewed [...] per 10Mg Im-[facility]#[address]-92(Srinath) Reviewed 05/05/2014 12:00 AM DRAIN/INJ JOINT/BURSA W/O US Reviewed 05/05/2014 12:00 AM SYNVISC-ONE, Per 1 Mg (6ml) [facility] [address]-20 Reviewed 05/06/2014 12:00 AM COMPREHEN METABOLIC PANEL [...] Reviewed 11/07/2010 12:00 AM Rocephin 500 mg [facility]#[address]-74 Reviewed 07/14/2014 12:00 AM Fluzone MEDICARE Only Reviewed 11/29/2010 12:00 AM INJECT TRIGGER POINTS 3/> Reviewed 11/29/2010 12:00 AM Kenalog per 10Mg Im-[facility]#[address]-26(Srinath) Reviewed 07/14/2014 12:00 AM Decadron injection Reviewed [...] 2013 9:08AM Congestive Heart Failure Feb 6 2014 9:08AM Hypertension Feb 6 2013 9:08AM Diabetes [...] Date Medicare Part A Medicare Part A [id number] N/A [employer] [facility] Ins [id number] N/A [place] Medical Assistance [facility] Medical Assistance Prog [id number] N/A Medicare Part B Medicare Of [place] [id number] Friday, 2008 History of Encounters Visit Date Visit Type Provider 07/11/2015 Office visit Katty CRAIG 07/06/2015 Office visit Katty CRAIG 06/27/2015 Office visit Melecio Wilkinson DO 06/20/2015 Office visit Melecio Cruzte DO 06/15/2015 Office visit Katty CRAIG 06/02/2015 [...] DO 01/12/2015 Office visit Katty CRAIG 12/16/2014 [facility] Alfa Platt MD 12/14/2014 Voided Melecio Willhite DO 12/08/2014 Office visit Alfa Platt MD 12/08/2014 Office visit Melecio Jaja DO 12/07/2014 Nurse visit Riri Salazar MD 12/02/2014 [facility] Alfa Platt MD 12/02/2014 [facility] Magi Powers [facility]/29[facility]29[facility]2014 Voided Katty [...] Jaja DO 05/05/2014 Office visit Katty Jefferson ART HISTORY INSTRUCTOR 04/26/2014 Office visit Katty Jefferson ART HISTORY INSTRUCTOR 03/24/2014 Office visit Katty Jefferson ART HISTORY INSTRUCTOR 02/24/2014 Office visit Katty Jefferson ART HISTORY INSTRUCTOR 01/05/2014 Office visit Melecio Jaja DO 12/23/2013 Office visit Katty Jefferson ART HISTORY INSTRUCTOR 12/23/2013 Office visit Melecio Jaja DO 12/18/2013 Office visit Janis Navarrete HYDRO MECHANIC 12/08/2013 Office visit Janis Navarrete HYDRO MECHANIC 11/25/2013 Office visit Katty Jefferson ART HISTORY INSTRUCTOR 10/29/2013 Office visit Melecio Wilkinson DO 09/22/2013 Office visit Janis Navarrete HYDRO MECHANIC 07/28/2013 Office visit Katty Jefferson ART HISTORY INSTRUCTOR 07/21/2013 Office visit Melecio Wilkinson DO 07/08/2013 Office visit Katty DURÁNP 05/06/2013 Office visit Melecio Wilkinson DO 04/07/2013 Office visit Gorge Yo MD 02/26/2013 Office visit Melecio Wilkinson DO 01/29/2013 Office visit Gorge Yo MD 01/06/2013 Office visit Gorge Yo MD 12/09/2012 [facility] Ama Barrios MD 12/09/2012 Office visit Stephanie Richardson HYDRO MECHANIC 11/26/2012 Office visit Gorge Yo MD 10/30/2012 [facility] Gorge Yo MD 10/29/2012 Office visit Gorge [...] 05/14/2012 Office visit Gorge Yo MD 05/12/2012 [facility] DO 05/11/2012 [facility] DO 03/13/2012 Office visit Gorge Yo MD 02/05/2012 Office visit Mleecio Wilkinson DO 01/31/2012 Office visit Gorge Yo [...] Gorge Yo MD 03/05/2011 Office visit Melecio Wlikinson DO 02/06/2011 [facility] Gorge Yo MD 01/08/2011 Office visit Melecio [...]
--- OUTSIDE RECORDS SUMMARY | 2018-01-22 13:17 | XMS REPORT ---
Author Author Melecio Wilkinson [facility] Address [address] [place] [phone] Care Team Providers Care Batter Mixer Name Role Phone Melecio Wilkinson PCP Unavailable [...] TABLET BY MOUTH THREE TIMES DAILY NEEDED Klor-Con 10 10 mEq oral tablet extended release 01/24/2017 02/23/2017 take 1 tablet (10 meq) by oral route once daily with food for 30 days methocarbamol 750 mg oral tablet 01/24/2017 TAKE 1 TABLET BY MOUTH EVERY SIX HOURS NEEDED furosemide 40 mg oral tablet 01/24/2017 02/23/2017 take 1 tablet (40 mg) by oral route once daily for 30 days sucralfate 1 gram oral tablet 01/28/2017 TAKE [...] for 30 days Discontinued by Hospitalist at [place] niacin 500 mg oral tablet 10/10/2016 take [...] HC BMI BSA BMI Percentile O2 Sat(%) 02/05/2017 1:41:00 PM 130 mmHg 78 mmHg [...] 12:00 AM Kenalog, Per 10 Mg [facility]#6113-6098-59 Reviewed 12/07/2014 12:00 AM OFFICE/OUTPATIENT VISIT EST Reviewed 06/19/2011 12:00 AM DRAIN/INJ JOINT/BURSA W/O US Reviewed 06/19/2011 12:00 AM Kenalog 40 Mg Im-Nd#5087-9704-51 Reviewed 08/25/2015 12:00 AM OFFICE/OUTPATIENT VISIT EST Reviewed 08/23/2015 12:00 AM Decadron, Per 1 Mg ND# [address]-99 Reviewed 08/23/2015 12:00 AM Depo-Medrol, Per 80 Mg [facility]#[address]-94 Reviewed 09/07/2015 12:00 AM X-RAY EXAM L-S [...] 12:00 AM Decadron, Per 1 Mg [facility]# [address]-78 Reviewed 10/23/2015 12:00 AM Depo-Medrol, Per 80 Mg [facility]#[address]-53 Reviewed 07/26/2011 12:00 AM X-RAY EXAM OF ABDOMEN Reviewed 11/21/2015 12:00 AM Orthopedics Consultation Reviewed 11/21/2015 12:00 AM Physical Therapy Consultation Reviewed 12/20/2015 12:00 AM EXTREMITY STUDY Reviewed 10/12/2011 12:00 AM EXTREMITY STUDY Reviewed 05/10/2016 12:00 AM CONTRAST X-RAY OF SHOULDER Reviewed 07/09/2016 12:00 AM PNEUMOCOCCAL VACC 13 IRP IM Reviewed 08/08/2016 12:00 AM Decadron, Per 1 Mg [facility]# [address]-82 Reviewed 08/08/2016 12:00 AM Depo-Medrol, Per 80 Mg [facility]#[address]-59 Reviewed 01/01/2012 12:00 AM AIRWAY INHALATION TREATMENT Reviewed 01/01/2012 12:00 AM Rocephin 1 gm [facility]#[address]-90 Reviewed 01/16/2012 12:00 AM DRAIN/INJ JOINT/BURSA W/O US Reviewed 01/16/2012 12:00 AM Kenalog per 10Mg [facility][Note 3]#[address]-19(Srinath) Reviewed 09/26/2016 12:00 AM CHEST X-RAY 2VW [...] AM SYNVISC, Per 1 Mg (2ml) [facility] [address]-98 Reviewed 06/05/2012 12:00 AM DRAIN/INJ JOINT/BURSA W/O US Reviewed 06/05/2012 12:00 AM SYNVISC, Per 1 Mg (2ml) [facility] [address]-46 Reviewed 06/12/2012 12:00 AM DRAIN/INJ JOINT/BURSA W/O US Reviewed 06/12/2012 12:00 AM SYNVISC, Per 1 Mg (2ml) [facility] [address]-48 Reviewed 07/16/2012 12:00 AM Hepatobiliary ductal system imaging with functional assessment Reviewed 07/16/2012 12:00 AM Decadron 8 mg [facility]#65313929770 Reviewed 07/16/2012 12:00 AM Depo-Medrol 80mg [facility]#51950184961 Reviewed 07/16/2012 12:00 AM COMPREHEN METABOLIC PANEL Reviewed 07/16/2012 12:00 AM LIPID PANEL Reviewed 07/16/2012 12:00 AM Flu Injection 3 Years And Above [facility]# [address]-20 RHC Reviewed 08/19/2012 12:00 AM METABOLIC PANEL TOTAL CA Reviewed 12/21/2009 12:[address] ABDOMEN W/O & W/DYE Reviewed 10/02/2012 12:00 AM CHEST X-RAY 2VW FRONTAL&LATL Reviewed 10/09/2012 12:00 AM Decadron 8 mg [facility]#17123784365 Reviewed 10/09/2012 12:00 AM Depo-Medrol 80mg [facility]#22632854108 Reviewed 12/09/2012 12:00 AM CHEST X-RAY 2VW [...] AM SYNVISC-ONE, Per 1 Mg (6ml) [facility] [address]-51 Reviewed 02/26/2013 12:00 AM Physical Therapy Reviewed 02/26/2013 12:[address] NECK SPINE W/O & W/DYE Reviewed 04/07/2013 12:00 AM INJECT TRIGGER POINTS 3/> Reviewed 04/07/2013 12:00 AM Kenalog per 10Mg [facility][Note 3]#[address]-87(Srinath) Reviewed 07/21/2013 12:00 AM CHEST X-RAY 2VW FRONTAL&LATL Reviewed 07/21/2013 12:00 AM Decadron 8 mg [facility]# [address]-69 Reviewed 07/21/2013 12:00 AM Depo-Medrol 80 mg [facility]#[address]-44 Reviewed 07/21/2013 12:00 AM Rocephin 500 mg [facility]#5413-8845-99 Reviewed 09/22/2013 12:00 AM CHEST X-RAY 2VW FRONTAL&LATL Reviewed 10/29/2013 12:00 AM X-RAY EXAM OF ABDOMEN Reviewed 12/08/2013 12:00 AM THER/PROPH/DIAG INJ SC/IM Reviewed 12/08/2013 12:00 AM Decadron, Per 1 Mg [facility]# [address]-92 Reviewed 12/08/2013 12:00 AM Depo-Medrol, Per 80 Mg [facility]#2060-0510-33 Reviewed 12/08/2013 12:00 AM CHEST X-RAY 2VW [...] 01/05/2014 12:00 AM Decadron 8 mg [facility]# [address]-23 Reviewed 01/05/2014 12:00 AM Depo-Medrol 80 mg [facility]#[address]-07 Reviewed 01/05/2014 12:00 AM Rocephin 1 gram [facility]#6225-2820-34 Reviewed 03/15/2010 12:00 AM PROTHROMBIN TIME Reviewed [...] Reviewed 09/28/2010 12:00 AM Kenalog per 10Mg [facility][Note 3]#[address]-97(Srinath) Reviewed 05/05/2014 12:00 AM DRAIN/INJ JOINT/BURSA W/O US Reviewed 05/05/2014 12:00 AM SYNVISC-ONE, Per 1 Mg (6ml) [facility] [address]-41 Reviewed 05/06/2014 12:00 AM COMPREHEN METABOLIC PANEL [...] 11/07/2010 12:00 AM Rocephin 500 mg [facility]#[address]-33 Reviewed 07/14/2014 12:00 AM Fluzone MEDICARE Only Reviewed 11/29/2010 12:00 AM INJECT TRIGGER POINTS 3/> Reviewed 11/29/2010 12:00 AM Kenalog per 10Mg [facility][Note 3]#[address]-03(Srinath) Reviewed 07/14/2014 12:00 AM Decadron injection Reviewed [...] CVX Pneumococcal 07/09/2016 [facility] Prevnar 13 [id number] Intramuscular Right Deltoid 07/09/2016 07/28/2015 133 History [...] Congestive Heart Failure Feb 05 2017 1:43PM Payers Insurance Name Company Name Plan Name Plan Number Policy Number Policy Group Number Start Date Medicare RHC Medicare RHC [id number] N/[place] [employer] [place] [employer] [place] [id number] N/A [employer] Medicare [employer] Ins [phone] N/A [place] Medical Assistance [facility] Medical Assistance Prog [id number] N/A Medicare Part B Medicare Of [place] [id number] Friday, 2008 Medicare Part A Medicare Part A [id number] N/A [facility] - RHC - Community Plan of [place] [facility] [id number] Wednesday, 2015 [employer] - [place] - [place] [employer] - [place] [id number] Wednesday, 2015 Medicare Part A Medicare - Lab/Xray [id number] N/A History of Encounters Visit Date Visit Type Provider 02/05/2017 Office visit Melecio Wilkinson DO 01/09/2017 Office visit Melecio Wilkinson DO 01/01/2017 [facility] Seth Devlin DO 12/31/2016 [facility] Rasta Mckeon MD 12/21/2016 Office visit [...] MD 12/02/2014 [facility] Platt MD 12/02/2014 [facility] Wilkinson DO 07/08/2013 Office visit Katty [place] CRAIG 05/06/2013 Office visit Melecio Wilkinson DO [...] Office visit Gorge Yo MD 05/12/2012 [facility] DO 05/11/2012 [facility] DO 03/13/2012 Office visit Gorge Yo [...]
--- OUTSIDE RECORDS SUMMARY | 2018-01-22 13:22 | XMS REPORT ---
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#[id number] Reviewed 12/07/2014 12:00 AM OFFICE/OUTPATIENT VISIT EST Reviewed 06/19/2011 12:00 AM DRAIN/INJ JOINT/BURSA W/O US Reviewed 06/19/2011 12:00 AM Kenalog 40 Mg [facility]#0258-5520-07 Reviewed 08/25/2015 12:00 AM OFFICE/OUTPATIENT VISIT EST Reviewed 08/23/2015 12:00 AM Decadron, Per [address] [facility]# [address]-96 Reviewed 08/23/2015 12:00 AM Depo-Medrol, Per [address] [facility]#[address]-63 Reviewed 09/07/2015 12:00 AM X-RAY EXAM L-S [...] 10/23/2015 12:00 AM Decadron, Per [address] [facility]# [id number] Reviewed 10/23/2015 12:00 AM Depo-Medrol, Per [address] [facility]#[address]-56 Reviewed 07/26/2011 12:00 AM X-RAY EXAM OF ABDOMEN Reviewed 11/21/2015 12:00 AM Orthopedics Consultation Reviewed 11/21/2015 12:00 AM Physical Therapy Consultation Reviewed 12/20/2015 12:00 AM EXTREMITY STUDY Reviewed 10/12/2011 12:00 AM EXTREMITY STUDY Reviewed 05/10/2016 12:00 AM CONTRAST X-RAY OF SHOULDER Reviewed 07/09/2016 12:00 AM PNEUMOCOCCAL VACC 13 RIP IM Reviewed 08/08/2016 12:00 AM Decadron, Per [address] [facility]# [address]-48 Reviewed 08/08/2016 12:00 AM Depo-Medrol, Per [address] [facility]#[address]-48 Reviewed 01/01/2012 12:00 AM AIRWAY INHALATION TREATMENT Reviewed 01/01/2012 12:00 AM Rocephin [address] [facility]#[address]-05 Reviewed 01/16/2012 12:00 AM DRAIN/INJ JOINT/BURSA W/O US Reviewed 01/16/2012 12:00 AM Kenalog per 10Mg [facility]#[address]-81(Srinath) Reviewed 09/26/2016 12:00 AM CHEST X-RAY 2VW [...] 12:00 AM SYNVISC, Per 1 Mg (2ml) [facility] [address]-86 Reviewed 06/05/2012 12:00 AM DRAIN/INJ JOINT/BURSA W/O US Reviewed 06/05/2012 12:00 AM SYNVISC, Per 1 Mg (2ml) [facility] [address]-02 Reviewed 06/12/2012 12:00 AM DRAIN/INJ JOINT/BURSA W/O US Reviewed 06/12/2012 12:00 AM SYNVISC, Per 1 Mg (2ml) [facility] [address]-23 Reviewed 07/16/2012 12:00 AM Hepatobiliary ductal system imaging with functional assessment Reviewed 07/16/2012 12:00 AM Decadron [address] [facility]#[id number] Reviewed 07/16/2012 12:00 AM Depo-Medrol 80mg [facility]#[id number] Reviewed 07/16/2012 12:00 AM COMPREHEN METABOLIC PANEL Reviewed 07/16/2012 12:00 AM LIPID PANEL Reviewed 07/16/2012 12:00 AM Flu Injection 3 Years And Above [facility]# [address]-48 RHC Reviewed 08/19/2012 12:00 AM METABOLIC PANEL TOTAL CA Reviewed 12/21/2009 12:[address] ABDOMEN W/O & W/DYE Reviewed 10/02/2012 12:00 AM CHEST X-RAY 2VW FRONTAL&LATL Reviewed 10/09/2012 12:00 AM Decadron [address] [facility]#[id number] Reviewed 10/09/2012 12:00 AM Depo-Medrol 80mg [facility]#[id number] Reviewed 12/09/2012 12:00 AM CHEST X-RAY 2VW [...] 12:00 AM SYNVISC-ONE, Per 1 Mg (6ml) [facility] [address]-62 Reviewed 02/26/2013 12:00 AM Physical Therapy Reviewed 02/26/2013 12:[address] NECK SPINE W/O & W/DYE Reviewed 04/07/2013 12:00 AM INJECT TRIGGER POINTS 3/> Reviewed 04/07/2013 12:00 AM Kenalog per 10Mg [facility]#[address]-57(Srinath) Reviewed 07/21/2013 12:00 AM CHEST X-RAY 2VW FRONTAL&LATL Reviewed 07/21/2013 12:00 AM Decadron [address] [facility]# [address]-91 Reviewed 07/21/2013 12:00 AM Depo-Medrol [address] [facility]#[address]-32 Reviewed 07/21/2013 12:00 AM Rocephin [address] [facility]#5929-7714-38 Reviewed 09/22/2013 12:00 AM CHEST X-RAY 2VW FRONTAL&LATL Reviewed 10/29/2013 12:00 AM X-RAY EXAM OF ABDOMEN Reviewed 12/08/2013 12:00 AM THER/PROPH/DIAG INJ SC/IM Reviewed 12/08/2013 12:00 AM Decadron, Per [address] [facility]# [address]-01 Reviewed 12/08/2013 12:00 AM Depo-Medrol, Per [address] [facility]#9236-2257-98 Reviewed 12/08/2013 12:00 AM CHEST X-RAY 2VW [...] Reviewed 01/05/2014 12:00 AM Decadron [address] [facility]# [address]-41 Reviewed 01/05/2014 12:00 AM Depo-Medrol [address] [facility]#[address]-44 Reviewed 01/05/2014 12:00 AM Rocephin [address] [facility]#6479-6766-44 Reviewed 03/15/2010 12:00 AM PROTHROMBIN TIME Reviewed [...] Kenalog per 10Mg [facility]#[address]-47(Srinath) Reviewed 05/05/2014 12:00 AM DRAIN/INJ JOINT/BURSA W/O US Reviewed 05/05/2014 12:00 AM SYNVISC-ONE, Per 1 Mg (6ml) [facility] [address]-60 Reviewed 05/06/2014 12:00 AM COMPREHEN METABOLIC PANEL [...] Reviewed 11/07/2010 12:00 AM Rocephin [address] [facility]#[address]-89 Reviewed 07/14/2014 12:00 AM Fluzone MEDICARE Only Reviewed 11/29/2010 12:00 AM INJECT TRIGGER POINTS 3/> Reviewed 11/29/2010 12:00 AM Kenalog per 10Mg [facility]#[address]-44(Srinath) Reviewed 07/14/2014 12:00 AM Decadron injection Reviewed [...] CVX Pneumococcal 07/09/2016 [facility]achar[facility] Prevnar 13 [id number] Intramuscular Right Deltoid 07/09/2016 07/28/2015 133 History [...] Number Start Date Medicare RHC Medicare RHC [id number] N/A [employer] [place] [employer] [place] [id number] N/A [place] [employer] [place] [employer] Ins [phone] N/A [place] [facility] [place] [facility] [place] Prog [id number] N/A Medicare Part B Medicare [place] [id number] Friday, 2008 Medicare Part A Medicare Part A [id number] N/A [facility] - RHC - Community Plan [facility] RHC Comm [id number] Wednesday, 2015 [employer] - [place] [employer] [place] [id number] Wednesday, 2015 Medicare Part A Medicare - Lab/Xray [id number] N/A History of Encounters Visit Date Visit Type Provider 01/09/2017 Office visit Melecio Cruzte DO 01/01/2017 Hospital Seth Devlin DO 12/21/2016 Office visit Melecio Wilkinson DO 11/20/2016 Office visit Melecio Jaja DO 11/05/2016 Office visit Melecio Jaja DO 10/23/2016 Office visit Melecio Jaja DO 10/10/2016 Office visit Melecio Jaja DO 09/26/2016 Office visit Melecio Jaja DO 08/28/2016 Office visit Melecio Jaja DO 08/08/2016 Office visit Melecio Jaja DO 07/09/2016 Office visit Melecio Cruzte DO 07/06/2016 Hospital Ama Barrios MD 07/06/2016 Hospital David Paul MD 07/05/2016 Surgery Ama Barrios MD 07/03/2016 Laboratory Ama Barrios MD 06/07/2016 Office visit Melecio Jaja DO 05/03/2016 Office visit Melecio Cruzte DO 04/11/2016 Office visit Melecio Jaja DO [...] DO 01/12/2015 Office visit Katty CRAIG 12/16/2014 [facility] Alfa Platt MD 12/14/2014 Voided Melecio Jaja DO 12/08/2014 Office visit Alfa Platt MD 12/08/2014 Office visit Melecio Jaja DO 12/07/2014 Nurse visit Riri Salazar MD 12/02/2014 [facility] Alfa Platt MD 12/02/2014 [facility] Magi Powers MD 11/29/2014 [facility] [...] visit Katty CRAIG 04/26/2014 Office visit Katty DURÁNP 03/24/2014 Office [place] [facility] 02/24/2014 Office visit Katty [place] EPIDEMIOLOGY INTERNSHIP 01/05/2014 Office visit Melecio Jaja DO 12/23/2013 Office visit Katty [place] EPIDEMIOLOGY INTERNSHIP 12/23/2013 Office visit Melecio Jaja DO 12/18/2013 Office visit Janis Navarrete VALVE MECHANIC 12/08/2013 Office visit Janis Navarrete VALVE MECHANIC 11/25/2013 Office visit Katty M. Ronny EPIDEMIOLOGY INTERNSHIP 10/29/2013 Office visit Melecio Wilkinson DO 09/22/2013 Office visit Janis Navarrete VALVE MECHANIC 07/28/2013 Office visit Katty [place] EPIDEMIOLOGY INTERNSHIP 07/21/2013 Office visit Melecio Wilkinson DO 07/08/2013 Office visit Katty [place] EPIDEMIOLOGY INTERNSHIP 05/06/2013 Office visit Melecio Wilkinson DO 04/07/2013 Office visit Gorge Yo MD 02/26/2013 Office visit Melecio Wilkinson DO 01/29/2013 Office visit Gorge Yo MD 01/06/2013 Office visit Gorge Yo MD 12/09/2012 [facility] Ama Barrios MD 12/09/2012 Office visit Stephanie Richardson VALVE MECHANIC 11/26/2012 Office visit Gorge Yo MD [...] visit Gorge Yo MD 05/29/2012 Office visit oGrge Yo MD 05/19/2012 Office visit Melecio Wilkinson DO 05/14/2012 Office visit Gorge Yo MD 05/12/2012 [facility] DO 05/11/2012 [facility] DO 03/13/2012 Office visit Gorge Yo MD 02/05/2012 Office visit Melecio Wilkinson DO 01/31/2012 Office visit Gorge Yo MD 01/16/2012 Office visit Gorge Yo MD 01/01/2012 Office visit Melecio Wilkinson DO 11/16/2011 Office visit oGrge Yo MD 10/05/2011 Office visit Gorge Yo [...]
--- OUTSIDE RECORDS SUMMARY | 2018-01-22 13:25 | XMS REPORT ---
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#7787-5706-78 Reviewed 08/25/2015 12:00 AM OFFICE/OUTPATIENT VISIT EST Reviewed 08/23/2015 12:00 AM Decadron, Per 1 Mg [facility] [place] [address]-49 Reviewed 08/23/2015 12:00 AM Depo-Medrol, Per 80 Mg [facility]#[address]-89 Reviewed 09/07/2015 12:00 AM X-RAY EXAM L-S [...] 1 gm [facility]#[address]-06 Reviewed 01/16/2012 12:00 AM DRAIN/INJ JOINT/BURSA W/O US Reviewed 01/16/2012 12:00 AM Kenalog per 10Mg [facility]#[address]-83(Srinath) Reviewed 02/05/2012 12:[address] ABDOMEN W/O & W/DYE Reviewed 02/05/2012 12:[address] PELVIS W/O & W/DYE Reviewed 05/29/2012 12:00 AM DRAIN/INJ JOINT/BURSA W/O US Reviewed 05/29/2012 12:00 AM SYNVISC, Per 1 Mg (2ml) [facility] [address]-62 Reviewed 06/05/2012 12:00 AM DRAIN/INJ JOINT/BURSA W/O US Reviewed 06/05/2012 12:00 AM SYNVISC, Per 1 Mg (2ml) [facility] [address]-48 Reviewed 06/12/2012 12:00 AM DRAIN/INJ JOINT/BURSA W/O US Reviewed 06/12/2012 12:00 AM SYNVISC, Per 1 Mg (2ml) [facility] [address]-97 Reviewed 07/16/2012 12:00 AM Hepatobiliary ductal system imaging with functional assessment Reviewed 07/16/2012 12:00 AM Decadron 8 mg [facility]#[id number] Reviewed 07/16/2012 12:00 AM Depo-Medrol 80mg [facility]#[id number] Reviewed 07/16/2012 12:00 AM COMPREHEN METABOLIC PANEL Reviewed 07/16/2012 12:00 AM LIPID PANEL Reviewed 07/16/2012 12:00 AM Flu Injection 3 Years And Above [facility] [place]# [address]-51 RHC Reviewed 08/19/2012 12:00 AM METABOLIC PANEL TOTAL CA Reviewed 12/21/2009 12:[address] ABDOMEN W/O & W/DYE Reviewed 10/02/2012 12:00 AM CHEST X-RAY 2VW FRONTAL&LATL Reviewed 10/09/2012 12:00 AM Decadron 8 mg [facility]#[id number] Reviewed 10/09/2012 12:00 AM Depo-Medrol 80mg [facility]#[id number] Reviewed 12/09/2012 12:00 AM CHEST X-RAY 2VW [...] (6ml) [facility] [place] [place] [address]-06 Reviewed 02/26/2013 12:[address] NECK SPINE W/O & W/DYE Reviewed 04/07/2013 12:00 AM INJECT TRIGGER POINTS 3/> Reviewed 04/07/2013 12:00 AM Kenalog per 10Mg [facility]#[address]-68(Srinath) Reviewed 07/21/2013 12:00 AM CHEST X-RAY 2VW FRONTAL&LATL Reviewed 07/21/2013 12:00 AM Decadron 8 mg [facility] [place] [address]-55 Reviewed 07/21/2013 12:00 AM Depo-Medrol 80 mg [facility] [place]#[address]-03 Reviewed 07/21/2013 12:00 AM Rocephin 500 mg [facility] [place] [place]#0197-9568-46 Reviewed 09/22/2013 12:00 AM CHEST X-RAY 2VW FRONTAL&LATL Returned 10/29/2013 12:00 AM X-RAY EXAM OF ABDOMEN Reviewed 12/08/2013 12:00 AM THER/PROPH/DIAG INJ SC/IM Reviewed 12/08/2013 12:00 AM Decadron, Per 1 Mg [facility] [place] [address]-05 Reviewed 12/08/2013 12:00 AM Depo-Medrol, Per 80 Mg [facility] [place] [place]#6425-6067-47 Reviewed 12/08/2013 12:00 AM CHEST X-RAY 2VW [...] mg [facility] [place] [address]-06 Reviewed 01/05/2014 12:00 AM Depo-Medrol 80 mg [facility] [place] [place]#[address]-19 Reviewed 01/05/2014 12:00 AM Rocephin 1 gram [facility] [place]#5239-1541-56 Reviewed 03/15/2010 12:00 AM PROTHROMBIN TIME Reviewed [...] Kenalog per 10Mg [facility]#[address]-08(Srinath) Reviewed 05/05/2014 12:00 AM DRAIN/INJ JOINT/BURSA W/O US Reviewed 05/05/2014 12:00 AM SYNVISC-ONE, Per 1 Mg (6ml) [facility] [address]-22 Reviewed 05/06/2014 12:00 AM COMPREHEN METABOLIC PANEL [...] 500 mg [facility]#[address]-68 Reviewed 07/14/2014 12:00 AM Fluzone MEDICARE Only Reviewed 11/29/2010 12:00 AM INJECT TRIGGER POINTS 3/> Reviewed 11/29/2010 12:00 AM Kenalog per 10Mg [facility]#[address]-89(Srinath) Reviewed 07/14/2014 12:00 AM Decadron injection Reviewed [...] Start Date Medicare Part A Medicare RHC [id number] N/A [facility] - [place]HC - [place] [facility] RHC [facility] [id number] Wednesday, 2015 Medicare Part A Medicare - Lab/Xray [id number] N/A [place] [employer] Medicare [place] [employer] Ins [phone] N/A [place] [facility] Medical Assistance Prog [id number] N/A Medicare Part B Medicare Of [place] [id number] Friday, February 22, 2008 Medicare Part A Medicare Part A [id number] N/A [facility] - C - Community Health Plan [facility] Comm [id number] Wednesday, September 23, 2015 History of Encounters [...] DO 01/12/2015 Office visit Katty CRAIG 12/16/2014 [facility] Alfa Platt MD 12/14/2014 Voided Melecio Jaja DO 12/08/2014 Office visit Alfa Platt MD 12/08/2014 Office visit Melecio Wilkinson DO 12/07/2014 Nurse visit Riri Salazar MD 12/02/2014 [facility] Alfa Platt MD 12/02/2014 [facility] Magi Powers MD 11/29/2014 [facility] Magi Powers MD 11/29/2014 [...] Jaja DO 12/18/2013 Office visit Janis Navarrete DRUM FILLER 12/08/2013 Office visit Janis Navarrete DRUM FILLER 11/25/2013 Office visit Katty CRAIG 10/29/2013 Office visit Melecio Wilkinson DO 09/22/2013 Office visit Janis Navarrete DRUM FILLER 07/28/2013 Office visit Katty CRAIG 07/21/2013 Office [...] 11/26/2012 Office visit Gorge Yo MD 10/30/2012 [facility] Gorge Yo MD 10/29/2012 [...] 05/14/2012 Office visit Gorge Yo MD 05/12/2012 [facility] DO 05/11/2012 [facility] DO 03/13/2012 Office visit Gorge [...] 03/05/2011 Office visit Melecio Wilkinson DO 02/06/2011 [facility] Gorge Yo MD 01/08/2011 Office visit Melecio Wilkinson DO 12/27/2010 Office visit Gorge Yo MD 11/29/2010 Office visit Gorge oY MD 11/07/2010 Office visit Melecio Wilkinson DO 09/28/2010 Office visit Gorge Yo MD 09/05/2010 [facility] Gorge Yo MD 08/28/2010 [...] MD 03/31/2010 Laboratory Alfonso Camacho MD 03/31/2010 [facility] Alfonso Camacho MD 03/21/2010 [...]
--- OUTSIDE RECORDS SUMMARY | 2018-01-22 13:29 | XMS REPORT ---
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#1023-7291-13 Reviewed 08/25/2015 12:00 AM OFFICE/OUTPATIENT VISIT EST Reviewed 08/23/2015 12:00 AM Decadron, Per 1 Mg [facility]# [address]-55 Reviewed 08/23/2015 12:00 AM Depo-Medrol, Per 80 Mg [facility]#[address]-95 Reviewed 09/07/2015 12:00 AM X-RAY EXAM L-S [...] Per 1 Mg [facility]# [address]-58 Reviewed 08/08/2016 12:00 AM Depo-Medrol, Per 80 Mg [facility]#[address]-73 Reviewed 01/01/2012 12:00 AM Rocephin 1 gm [facility]#[address]-24 Reviewed 09/26/2016 12:00 AM CHEST X-RAY 2VW FRONTAL&LATL Reviewed 01/16/2012 12:00 AM DRAIN/INJ JOINT/BURSA W/O US Reviewed 01/16/2012 12:00 AM Kenalog per 10Mg [facility]#[address]-77(Srinath) Reviewed 02/05/2012 12:[address] ABDOMEN W/O & W/DYE Reviewed 02/05/2012 12:[address] PELVIS W/O & W/DYE Reviewed 05/29/2012 12:00 AM DRAIN/INJ JOINT/BURSA W/O US Reviewed 05/29/2012 12:00 AM SYNVISC, Per 1 Mg (2ml) [facility] [address]-48 Reviewed 06/05/2012 12:00 AM DRAIN/INJ JOINT/BURSA W/O US Reviewed 06/05/2012 12:00 AM SYNVISC, Per 1 Mg (2ml) [facility] [address]-73 Reviewed 06/12/2012 12:00 AM DRAIN/INJ JOINT/BURSA W/O US Reviewed 06/12/2012 12:00 AM SYNVISC, Per 1 Mg (2ml) [facility] [address]-15 Reviewed 07/16/2012 12:00 AM Hepatobiliary ductal system imaging with functional assessment Reviewed 07/16/2012 12:00 AM Decadron 8 mg [facility]#[id number] Reviewed 07/16/2012 12:00 AM Depo-Medrol 80mg [facility]#01878054911 Reviewed 07/16/2012 12:00 AM COMPREHEN METABOLIC PANEL Reviewed 07/16/2012 12:00 AM LIPID PANEL Reviewed 07/16/2012 12:00 AM Flu Injection 3 Years And Above [facility]# [address]-78 RHC Reviewed 08/19/2012 12:00 AM METABOLIC PANEL TOTAL CA Reviewed 12/21/2009 12:[address] ABDOMEN W/O & W/DYE Reviewed 10/02/2012 12:00 AM CHEST X-RAY 2VW FRONTAL&LATL Reviewed 10/09/2012 12:00 AM Decadron 8 mg [facility]#[id number] Reviewed 10/09/2012 12:00 AM Depo-Medrol 80mg [facility]#61541095476 Reviewed 12/09/2012 12:00 AM CHEST X-RAY 2VW [...] 1 Mg (6ml) [facility] [address]-96 Reviewed 02/26/2013 12:[address] NECK SPINE W/O & W/DYE Reviewed 04/07/2013 12:00 AM INJECT TRIGGER POINTS 3/> Reviewed 04/07/2013 12:00 AM Kenalog per 10Mg [facility]#[address]-38(Srinath) Reviewed 07/21/2013 12:00 AM CHEST X-RAY 2VW FRONTAL&LATL Reviewed 07/21/2013 12:00 AM Decadron 8 mg [facility]# [address]-75 Reviewed 07/21/2013 12:00 AM Depo-Medrol 80 mg [facility]#[address]-68 Reviewed 07/21/2013 12:00 AM Rocephin 500 mg [facility]#1770-8150-38 Reviewed 09/22/2013 12:00 AM CHEST X-RAY 2VW FRONTAL&LATL Reviewed 10/29/2013 12:00 AM X-RAY EXAM OF ABDOMEN Reviewed 12/08/2013 12:00 AM THER/PROPH/DIAG INJ SC/IM Reviewed 12/08/2013 12:00 AM Decadron, Per 1 Mg [facility]# [address]-39 Reviewed 12/08/2013 12:00 AM Depo-Medrol, Per 80 Mg [facility]#9637-4849-22 Reviewed 12/08/2013 12:00 AM CHEST X-RAY 2VW [...] Decadron 8 mg [facility]# [address]-32 Reviewed 01/05/2014 12:00 AM Depo-Medrol 80 mg [facility]#[address]-08 Reviewed 01/05/2014 12:00 AM Rocephin 1 gram [facility]#5692-7995-35 Reviewed 03/15/2010 12:00 AM PROTHROMBIN TIME Reviewed [...] 09/28/2010 12:00 AM Kenalog per 10Mg [facility]#[address]-06(Srinath) Reviewed 05/05/2014 12:00 AM DRAIN/INJ JOINT/BURSA W/O US Reviewed 05/05/2014 12:00 AM SYNVISC-ONE, Per 1 Mg (6ml) [facility] [address]-08 Reviewed 05/06/2014 12:00 AM COMPREHEN METABOLIC PANEL [...] AM Rocephin 500 mg [facility]#[address]-41 Reviewed 07/14/2014 12:00 AM Fluzone MEDICARE Only Reviewed 11/29/2010 12:00 AM INJECT TRIGGER POINTS 3/> Reviewed 11/29/2010 12:00 AM Kenalog per 10Mg [facility]#[address]-46(Srinath) Reviewed 07/14/2014 12:00 AM Decadron injection Reviewed [...] CVX Pneumococcal 07/09/2016 [facility] Prevnar 13 [id number] Intramuscular Right Deltoid 07/09/2016 07/28/2015 133 History [...] Start Date Medicare Part A Medicare C [id number] N/A [facility] - [facility] - [place] State [place] [facility] - C [place] State [place] [id number] Wednesday, 2015 Medicare Part A Medicare - Lab/Xray [id number] N/A [employer] [place] [employer] State [place] [id number] N/A [employer] Medicare [employer] Ins [phone] N/A [place] Medical Assistance [facility] Medical Assistance Prog [id number] N/A Medicare Part B Medicare Of [place] [id number] Friday, February 22, 2008 Medicare Part A Medicare Part A [id number] N/A [facility] Comm [id number] Wednesday, September 23, 2015 History of Encounters [...] [facility] 11/29/2014 Voided Katty CRAIG [...] Cruzte DO 12/18/2013 Office visit Janis Navarrete CALL CENTER ANALYST 12/08/2013 Office visit Janis Navarrete CALL CENTER ANALYST 11/25/2013 Office visit Katty DURÁNP 10/29/2013 Office visit Melecio Wilkinson DO 09/22/2013 Office visit Janis Navarrete CALL CENTER ANALYST 07/28/2013 Office visit Katty DURÁNP 07/21/2013 Office visit Melecio Wilkinson DO 07/08/2013 Office visit Katty CRAIG 05/06/2013 Office visit Melecio Wilkinson DO 04/07/2013 Office visit Gorge Yo MD 02/26/2013 Office visit Melecio Wilkinson DO 01/29/2013 Office visit Gorge Yo MD 01/06/2013 Office visit Gorge Yo MD 12/09/2012 [facility] Ama Barrios MD 12/09/2012 Office visit Stephanie Richardson CALL CENTER ANALYST 11/26/2012 Office visit Gorge Yo MD 10/30/2012 [...] 05/14/2012 Office visit Gorge Yo MD 05/12/2012 [facility] DO 05/11/2012 [facility] DO 03/13/2012 Office visit Gorge Yo MD 02/05/2012 Office visit Melecio Wilkinson DO 01/31/2012 Office visit Gorge Yo MD 01/16/2012 Office visit Gorge Yo MD 01/01/2012 Office visit Melecio Wilkinson DO 11/16/2011 Office visit Gorge Yo MD 10/05/2011 Office visit Gorge Yo MD 10/01/2011 Office visit Jnais Navarrete CALL CENTER ANALYST 09/06/2011 Office visit Gorge Yo MD 07/26/2011 Office visit Melecio Wilkinson DO 06/19/2011 Office visit Gorge Yo MD 06/06/2011 Office visit Gorge Yo MD 03/22/2011 Office visit Gorge Yo MD 03/05/2011 Office visit Melecio Wilkinson DO 02/06/2011 [facility] Gorge Yo MD 01/08/2011 Office visit Melecio Wilkinson DO 12/27/2010 Office visit Goreg Yo MD 11/29/2010 Office visit Gorge Yo MD 11/07/2010 Office visit Melecio Wilkinson DO 09/28/2010 Office visit Gorge oY MD 09/05/2010 [facility] Gorge [...]
[2018-01-22] MEDS ORDERED: NEO/POLY/BAC (NEOSPORIN) OINT 15 GM TUBE ONE (13:31)
--- OUTSIDE RECORDS SUMMARY | 2018-01-22 13:32 | XMS REPORT ---
Author Author Melecio Wilkinson [facility] Address [address] [place] [phone] Care Team Providers Care Camera Maker Name Role Phone Melecio Wilkinson PCP Unavailable Allergies and Adverse Reactions Name Reaction Notes NO KNOWN DRUG ALLERGIES Plan of Treatment Planned Activity Comments Planned Date Planned Time Plan/Goal CT ABD & PELV W/CONTRAST 05/16/2015 12:00 [...] DAY 30 MINUTES BEFORE A MEAL allopurinol oral tablet 100 mg take 1.5 [...] take 1 capsule by oral route oxycodone oral tablet 20 mg 05/16/2015 06/15/2015 take 1 tablet (20 mg) by oral route every 4-6 hours for 30 days Name Start Date [...] Oral Tablet 25 mg 04/17/2010 06/14/2010 1 /2 tabs BID Amlodipine Oral Tablet 10 mg 05/11/2010 06/19/2010 take 1 tablet (10 mg) by oral route once daily for 30 days Discontinued by Hospitalist at [place] Augmentin Oral Tablet 875-125 mg 11/07/2010 03/05/2011 [...] DAILY ON HOLD - DR ARAIZA gabapentin oral capsule 300 mg 04/26/2015 05/16/2015 take 1 capsule by oral [...] Kenalog 40 Mg [facility]#4648-6896-50 Reviewed 11/03/2009 12:00 AM PROTHROMBIN TIME Reviewed 07/26/2011 12:00 AM X-RAY EXAM OF ABDOMEN Reviewed 10/12/2011 12:00 AM EXTREMITY STUDY Reviewed 01/01/2012 12:00 AM AIRWAY INHALATION TREATMENT Ordered 01/01/2012 12:00 AM Rocephin 1 gm [facility]#[address]-78 Reviewed 01/16/2012 12:00 AM DRAIN/INJ JOINT/BURSA W/O US Reviewed 01/16/2012 12:00 AM Kenalog per 10Mg [facility]#[address]-38(Srinath) Reviewed 02/05/2012 12:[address] ABDOMEN W/O & W/DYE Reviewed 02/05/2012 12:[address] PELVIS W/O & W/DYE Reviewed 05/29/2012 12:00 AM DRAIN/INJ JOINT/BURSA W/O US Reviewed 05/29/2012 12:00 AM SYNVISC, Per 1 Mg (2ml) [facility] [address]-09 Reviewed 06/05/2012 12:00 AM DRAIN/INJ JOINT/BURSA W/O US Reviewed 06/05/2012 12:00 AM SYNVISC, Per 1 Mg (2ml) [facility] [address]-33 Reviewed 06/12/2012 12:00 AM DRAIN/INJ JOINT/BURSA W/O US Reviewed 06/12/2012 12:00 AM SYNVISC, Per 1 Mg (2ml) [facility] [address]-17 Reviewed 07/16/2012 12:00 AM Hepatobiliary ductal system imaging with functional assessment Reviewed 07/16/2012 12:00 AM Decadron 8 mg [facility]#[id number] Reviewed 07/16/2012 12:00 AM Depo-Medrol 80mg [facility]#87379297939 Reviewed 07/16/2012 12:00 AM COMPREHEN METABOLIC PANEL Reviewed 07/16/2012 12:00 AM LIPID PANEL Reviewed 07/16/2012 12:00 AM Flu Injection 3 Years And Above [facility]# [address]-03 RHC Reviewed 08/19/2012 12:00 AM METABOLIC PANEL TOTAL CA Reviewed 12/21/2009 12:[address] ABDOMEN W/O & W/DYE Reviewed 10/02/2012 12:00 AM CHEST X-RAY 2VW FRONTAL&LATL Reviewed 10/09/2012 12:00 AM Decadron 8 mg [facility]#36532664086 Reviewed 10/09/2012 12:00 AM Depo-Medrol 80mg [facility]#48637243166 Reviewed 12/09/2012 12:00 AM CHEST X-RAY 2VW [...] AM SYNVISC-ONE, Per 1 Mg (6ml) [facility] [address]-25 Reviewed 02/26/2013 12:00 AM Physical Therapy Ordered 02/26/2013 12:[address] NECK SPINE W/O & W/DYE Reviewed 04/07/2013 12:00 AM INJECT TRIGGER POINTS 3/> Reviewed 04/07/2013 12:00 AM Kenalog per 10Mg [facility]#[address]-26(Srinath) Reviewed 07/21/2013 12:00 AM CHEST X-RAY 2VW FRONTAL&LATL Reviewed 07/21/2013 12:00 AM Decadron 8 mg [facility]# [address]-31 Reviewed 07/21/2013 12:00 AM Depo-Medrol 80 mg [facility]#[address]-81 Reviewed 07/21/2013 12:00 AM Rocephin 500 mg [facility]#1086-2872-12 Reviewed 09/22/2013 12:00 AM CHEST X-RAY 2VW FRONTAL&LATL Returned 10/29/2013 12:00 AM X-RAY EXAM OF ABDOMEN Reviewed 12/08/2013 12:00 AM THER/PROPH/DIAG INJ SC/IM Reviewed 12/08/2013 12:00 AM Decadron, Per 1 Mg [facility]# [address]-40 Reviewed 12/08/2013 12:00 AM Depo-Medrol, Per 80 Mg [facility]#2211-7848-84 Reviewed 12/08/2013 12:00 AM CHEST X-RAY 2VW [...] 01/05/2014 12:00 AM Decadron 8 mg [facility]# [address]-60 Reviewed 01/05/2014 12:00 AM Depo-Medrol 80 mg [facility]#[address]-37 Reviewed 01/05/2014 12:00 AM Rocephin 1 gram [facility]#7071-2987-85 Reviewed 03/15/2010 12:00 AM PROTHROMBIN TIME Reviewed [...] Kenalog per 10Mg [facility]#[address]-99(Srinath) Reviewed 05/05/2014 12:00 AM DRAIN/INJ JOINT/BURSA W/O US Reviewed 05/05/2014 12:00 AM SYNVISC-ONE, Per 1 Mg (6ml) [facility] [address]-34 Reviewed 05/06/2014 12:00 AM COMPREHEN METABOLIC PANEL [...] 11/07/2010 12:00 AM Rocephin 500 mg [facility]#[address]-32 Reviewed 07/14/2014 12:00 AM Fluzone MEDICARE Only Reviewed 11/29/2010 12:00 AM INJECT TRIGGER POINTS 3/> Reviewed 11/29/2010 12:00 AM Kenalog per 10Mg [facility]#[address]-96(Srinath) Reviewed 08/16/2014 12:00 AM OFFICE/OUTPATIENT VISIT EST [...] 12:[address] ABD & PELV W/CONTRAST Ordered 05/16/2015 12:00 AM LOWER EXTREMITY STUDY Ordered 05/16/2015 12:00 AM LOWER EXTREMITY STUDY Ordered Results Summary Data and Description Results [...] infection Nov 11 2014 8:23AM Lumbar spondylosis Feb 2014 2:04PM Lumbar degenerative disc disease Feb 2014 2:04PM Lumbar Radiculitis Feb 2014 2:04PM Cervicalgia Feb 2014 2:04PM Muscle Spasm Nov 11 2014 [...] 1:13PM Cervical radiculopathy May 16 2015 1:13PM Payers Insurance Name Company Name Plan Name Plan Number Policy Number Policy Group Number Start Date Medicare Part A Medicare Part A [id number] N/A [employer] Medicare [employer] [facility] [phone] N/A [place] Medical Assistance [facility] Medical [facility] Pro [id number] N/A Medicare Part B Medicare Of [place] [id number] Friday, 2008 History of Encounters Visit Date Visit Type Provider 05/16/2015 Office visit Melecio Wilkinson DO 05/16/2015 Office visit Katty CRAIG 05/09/2015 Office visit Melecio Wilkinson DO 04/26/2015 [...] DO 01/12/2015 Office visit Katty CRAIG 12/16/2014 [facility] Alfa Platt MD 12/14/2014 Voided Melecio Wilkinson DO 12/08/2014 Office visit Melecio Wilkinson DO 12/08/2014 Office visit Alfa Platt MD 12/07/2014 Nurse visit Riri Salazar MD 12/02/2014 [facility] Alfa Platt MD 12/02/2014 [facility] Magi Powers MD 11/29/2014 Voided Katty CRAIG 11/29/2014 [facility] Magi Powers MD 11/11/2014 Office visit Melecio Wilkinson DO 11/11/2014 Office visit Katty CRAIG 10/14/2014 Office visit Katty CRAIG 09/14/2014 Office visit Katty CRAIG 09/08/2014 [facility] Ama Barrios MD 09/07/2014 Office visit Melecio Wilkinson DO 08/16/2014 Nurse visit Katty CRAIG 07/19/2014 Office visit Katty CRAIG 07/14/2014 Office visit Melecio Jaja DO 06/21/2014 Office visit Katty Jefferson ABSORPTION AND ADSORPTION ENGINEER 05/20/2014 Office visit Melecio Jaja DO 05/14/2014 Office visit Melecio Jaja DO 05/05/2014 Office visit Katty Jefferson ABSORPTION AND ADSORPTION ENGINEER 04/26/2014 Office visit Katty Jefferson ABSORPTION AND ADSORPTION ENGINEER 03/24/2014 Office visit Katty DURÁNP 02/24/2014 Office visit Katty Jefferson ABSORPTION AND ADSORPTION ENGINEER 01/05/2014 Office visit Melecio Jaja DO 12/23/2013 Office visit Melecio Wilkinson DO 12/23/2013 Office visit Katty Jefferson ABSORPTION AND ADSORPTION ENGINEER 12/18/2013 Office visit Janis Landon HIDE DYER 12/08/2013 Office visit Janis Landon HIDE DYER 11/25/2013 Office visit Katty DURÁNP 10/29/2013 Office visit Melecio Wilkinson DO 09/22/2013 Office visit Janis Navarrete HIDE DYER 07/28/2013 Office visit Katty DURÁNP 07/21/2013 Office visit Melecio Wilkinson DO 07/08/2013 Office visit Katty CRAIG 05/06/2013 Office visit Melecio Wilkinson DO 04/07/2013 Office visit Gorge Yo MD 02/26/2013 Office visit Melecio Wilkinson DO 01/29/2013 Office visit Gorge Yo MD 01/06/2013 Office visit Gorge Yo MD 12/09/2012 Office visit Stephanie Richardson HIDE DYER 12/09/2012 [facility] Ama Barrios MD 11/26/2012 Office visit Gorge Yo MD 10/30/2012 [facility] Gorge Yo MD 10/29/2012 Office [...] 03/05/2011 Office visit Melecio Wilkinson DO 02/06/2011 [facility] Gorge Yo MD 01/08/2011 Office visit Melecio Wilkinson DO 12/27/2010 Office visit Gorge Yo MD 11/29/2010 Office visit Gorge Yo MD 11/07/2010 Office visit Melecio Wilkinson DO 09/28/2010 Office visit Gorge Yo MD 09/05/2010 [facility] Gorge Yo MD 08/28/2010 Office visit Gorge Yo MD 08/07/2010 Office visit Janis Navarrete APRN 07/25/2010 Office visit Melecio Wilkinson DO 06/27/2010 Office visit Gorge Yo MD 06/14/2010 Office visit Melecio Wilkinson DO 06/06/2010 [facility] Alfonso Camacho MD 06/01/2010 Office visit Melecio Wilkinson DO 04/17/2010 Office visit Melecio Wilkinson DO 04/06/2010 Office visit Gorge Yo MD 04/02/2010 [facility] Alfonso Camacho MD 03/31/2010 Laboratory Alfonso [...]
--- OUTSIDE RECORDS SUMMARY | 2018-01-22 13:36 | XMS REPORT ---
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 Name Role Phone Melecio Wilkinson PCP Unavailable [...] route every 12 hours May fill 08/01/16 oxycodone 20 mg oral tablet 07/30/2016 08/29/2016 take 1 tablet by oral route every [...] for 30 days Discontinued by Hospitalist at [place] Augmentin 875-125 mg oral tablet 11/07/2010 03/05/2011 [...] route every 12 hours for 30 days [place] stoned Problem List Description Status Onset SI [...] 12:00 AM Kenalog, Per 10 Mg [facility]#8846-6614-27 Reviewed 06/19/2011 12:00 AM DRAIN/INJ JOINT/BURSA W/O US Reviewed 06/19/2011 12:00 AM Kenalog 40 Mg [facility]#3738-3961-53 Reviewed 08/25/2015 12:00 AM OFFICE/OUTPATIENT VISIT EST Reviewed 08/23/2015 12:00 AM Decadron, Per 1 Mg [facility]# [address]-99 Reviewed 08/23/2015 12:00 AM Depo-Medrol, Per 80 Mg [facility]#[address]-83 Reviewed 09/07/2015 12:00 AM X-RAY EXAM L-S [...] 01/01/2012 12:00 AM Rocephin 1 gm [facility]#[address]-22 Reviewed 01/16/2012 12:00 AM DRAIN/INJ JOINT/BURSA W/O US Reviewed 01/16/2012 12:00 AM Kenalog per 10Mg [facility]#[address]-49(Srinath) Reviewed 02/05/2012 12:[address] ABDOMEN W/O & W/DYE Reviewed 02/05/2012 12:[address] PELVIS W/O & W/DYE Reviewed 05/29/2012 12:00 AM DRAIN/INJ JOINT/BURSA W/O US Reviewed 05/29/2012 12:00 AM SYNVISC, Per 1 Mg (2ml) [facility] [address]-37 Reviewed 06/05/2012 12:00 AM DRAIN/INJ JOINT/BURSA W/O US Reviewed 06/05/2012 12:00 AM SYNVISC, Per 1 Mg (2ml) [facility] [address]-08 Reviewed 06/12/2012 12:00 AM DRAIN/INJ JOINT/BURSA W/O US Reviewed 06/12/2012 12:00 AM SYNVISC, Per 1 Mg (2ml) [facility] [address]-19 Reviewed 07/16/2012 12:00 AM Hepatobiliary ductal system imaging with functional assessment Reviewed 07/16/2012 12:00 AM Decadron 8 mg [facility]#02824603053 Reviewed 07/16/2012 12:00 AM Depo-Medrol 80mg [facility]#84777575240 Reviewed 07/16/2012 12:00 AM COMPREHEN METABOLIC PANEL Reviewed 07/16/2012 12:00 AM LIPID PANEL Reviewed 07/16/2012 12:00 AM Flu Injection 3 Years And Above [facility]# [address]-92 RHC Reviewed 08/19/2012 12:00 AM METABOLIC PANEL TOTAL CA Reviewed 12/21/2009 12:[address] ABDOMEN W/O & W/DYE Reviewed 10/02/2012 12:00 AM CHEST X-RAY 2VW FRONTAL&LATL Reviewed 10/09/2012 12:00 AM Decadron 8 mg [facility]#73030046309 Reviewed 10/09/2012 12:00 AM Depo-Medrol 80mg [facility]#27024617099 Reviewed 12/09/2012 12:00 AM CHEST X-RAY 2VW [...] AM SYNVISC-ONE, Per 1 Mg (6ml) [facility] [address]-22 Reviewed 02/26/2013 12:[address] NECK SPINE W/O & W/DYE Reviewed 04/07/2013 12:00 AM INJECT TRIGGER POINTS 3/> Reviewed 04/07/2013 12:00 AM Kenalog per 10Mg [facility]#[address]-62(Srinath) Reviewed 07/21/2013 12:00 AM CHEST X-RAY 2VW FRONTAL&LATL Reviewed 07/21/2013 12:00 AM Decadron 8 mg [facility]# [address]-77 Reviewed 07/21/2013 12:00 AM Depo-Medrol 80 mg [facility]#[address]-26 Reviewed 07/21/2013 12:00 AM Rocephin 500 mg [facility]#5174-3348-78 Reviewed 09/22/2013 12:00 AM CHEST X-RAY 2VW FRONTAL&LATL Returned 10/29/2013 12:00 AM X-RAY EXAM OF ABDOMEN Reviewed 12/08/2013 12:00 AM THER/PROPH/DIAG INJ SC/IM Reviewed 12/08/2013 12:00 AM Decadron, Per 1 Mg [facility]# [address]-13 Reviewed 12/08/2013 12:00 AM Depo-Medrol, Per 80 Mg [facility]#2503-2226-56 Reviewed 12/08/2013 12:00 AM CHEST X-RAY 2VW [...] Returned 01/05/2014 12:00 AM Decadron 8 mg [facility]# [address]-90 Reviewed 01/05/2014 12:00 AM Depo-Medrol 80 mg [facility]#[address]-25 Reviewed 01/05/2014 12:00 AM Rocephin 1 gram [facility]#3056-7643-39 Reviewed 03/15/2010 12:00 AM PROTHROMBIN TIME Reviewed [...] per 10Mg [facility]#[address]-40(Srinath) Reviewed 05/05/2014 12:00 AM DRAIN/INJ JOINT/BURSA W/O US Reviewed 05/05/2014 12:00 AM SYNVISC-ONE, Per 1 Mg (6ml) [facility] [address]-64 Reviewed 05/06/2014 12:00 AM COMPREHEN METABOLIC PANEL [...] 11/07/2010 12:00 AM Rocephin 500 mg [facility]#[address]-14 Reviewed 07/14/2014 12:00 AM Fluzone MEDICARE Only Reviewed 11/29/2010 12:00 AM INJECT TRIGGER POINTS 3/> Reviewed 11/29/2010 12:00 AM Kenalog per 10Mg [facility]#[address]-17(Srinath) Reviewed 07/14/2014 12:00 AM Decadron injection Reviewed [...] Vis Given Vis Pub CVX Pneumococcal 07/09/2016 Nhkrp-Liydhw-FblnjqdBran [facility] Prevnar 13 [id number] Intramuscular Right Deltoid 07/09/2016 07/28/2015 133 History [...] for Prevnar vaccine Jul 09 2016 9:55AM Payers Insurance Name Company Name Plan Name Plan Number Policy Number Policy Group Number Start Date Medicare Part A Medicare RHC [id number] N/A [employer] - R[place] - [place] State Plan [employer] [place] State Plan [id number] Wednesday, 2015 Medicare Part A Medicare - Lab/Xray [id number] N/A [employer] [place] State [place] [facility] [place] [id number] N/A [employer] [place] [employer] Medicare [place] [employer] Ins [phone] N/A [place] Medical Assistance [facility] Medical Assistance Prog [id number] N/A Medicare Part B Medicare Of [place] [id number] Friday, February 22, 2008 Medicare Part A Medicare Part A [id number] N/A [facility] - RHC - Community Plan [facility] RHC Comm [id number] Wednesday, September 23, 2015 History of Encounters Visit Date Visit Type Provider 07/09/2016 Office visit Melecio Wilkinson DO 07/06/2016 [facility] David Paul MD 06/07/2016 Office visit Melecio Wilkinson DO 05/03/2016 Office visit Melecio Wilkinson DO 04/11/2016 Office visit Melecio Wilkinson DO 02/17/2016 Office visit Melecio Wilkinson DO 01/19/2016 Office visit Melecio Wilkinson DO 12/20/2015 Office visit Melecio Wilkinson DO 11/21/2015 Office visit Melecio Wilkinson DO 10/17/2015 Office visit Melecio Wilkinson DO 09/26/2015 Office visit Melecio Jaja DO [...] visit Melecio Jaja DO 05/09/2015 Office visit Meelcio Jaja DO 04/26/2015 Office visit Katty CRAIG [...] 12/07/2014 Nurse visit Riri Salazar MD 12/02/2014 [facility] Alfa Platt MD 12/02/2014 [facility] Magi Powers MD 11/29/2014 [facility] Magi Powers MD 11/29/2014 Voided Katty CRAIG 11/11/2014 Office visit 11/11/2014 Office visit Katty CRAIG 11/11/2014 Office visit Melecio Willhite DO 10/14/2014 Office visit Katty CRAIG 09/14/2014 Office visit Katty CRAIG 09/08/2014 [facility] Ama Barrios MD 09/07/2014 Office visit [...] Jaja DO 12/18/2013 Office visit Janis Navarrete [employer] 12/08/2013 Office visit Janis Navarrete SOAKER MEAT 11/25/2013 Office visit Katty CRAIG 10/29/2013 Office [...] 01/06/2013 Office visit Gorge Yo MD 12/09/2012 [facility] Ama Barrios MD 12/09/2012 Office visit [...] 05/14/2012 Office visit Gorge Yo MD 05/12/2012 [facility] DO 05/11/2012 [facility] DO 03/13/2012 Office visit Gorge [...]
[2018-01-22] MEDS ORDERED: NS IV 1000 ML 1,000 ML IV SCH (13:38)
--- NOTE | 2018-01-22 13:40 | Cardiac Procedure Note-CS/ASA ---
Pre-Procedure Note Pre-Op Procedure Note H&P Reviewed The H&P was reviewed, patient examined and no changes noted. Date H&P Reviewed: January 22, 2018 Time H&P Reviewed: 12:00 Conscious Sedation Pre-Proced Time Reviewed: 12:00 ASA Class: 3 Airway Mallampati Classification: ([place] appropriate class) I. II. III, IV Lungs Heart ASA score ASA 1: a normal healthy patient ASA 2: a patient with a mild systemic disease (mid diabetes, controlled hypertension, obesity x ASA 3: a patient with a severe systemic disease that limits activity (angina , COPD, prior Myocardial infarction) ASA 4: a patient with an incapacitating disease that is a constant threat to life (CHF, renal failure) ASA 5: a moribund patient not expected to survive 24 hrs. (ruptured aneurysm) ASA 6: a declared brain patient whose organs are being harvested. For emergent operations, add the letter E after the classification Grade 3 Sedation Plan: Analgesia, Amnesia, Plan communicated to team members, Discussed options with patient/fam, Discussed risks with patient/fam Note The patient is an appropriate candidate to undergo the planned procedure, sedation, and anesthesia. The patient immediately re-assessed prior to indication. SAMI QUINN MD January 22, 2018 13:40
--- OUTSIDE RECORDS SUMMARY | 2018-01-22 13:40 | XMS REPORT ---
Author Author Melecio Wilkinson [facility] Address [address] [place] [phone] Care Team Providers Care Internet Specialist Name Role Phone Melecio Wilkinson PCP Unavailable Melecio Wilkinson PreferredProvider Unavailable Allergies and Adverse Reactions Name Reaction Notes NO KNOWN DRUG ALLERGIES Plan of Treatment Planned Activity Comments Planned Date Planned Time Plan/Goal BMP (basic metabolic panel) 06/20/2017 12:00 AM EKG (12-lead electrocardiogram) 12/09/2012 12:00 AM Medications [...] 1 CAPSULE BY MOUTH TWICE DAILY oxycodone 20 mg oral tablet 05/28/2017 06/27/2017 take 1 tablet by oral route q6h prn for 30 days oxycodone 30 mg oral tablet,oral only,ext.rel.12 hr 06/06/2017 07/06/2017 take 1 tablet (30 mg) by oral route every 8 hours for 30 days Lyrica 50 mg oral capsule 06/06/2017 take 1 capsule (50 mg) by oral route 2 times per day Name Start [...] for 30 days Discontinued by Hospitalist at [place] niacin 500 mg oral tablet 10/10/2016 take [...] HC BMI BSA BMI Percentile O2 Sat(%) 06/06/2017 10:05:00 AM 144 mmHg 86 mmHg [...] AM Kenalog, Per 10 Mg [facility]#2552-0223-00 Reviewed 12/07/2014 12:00 AM OFFICE/OUTPATIENT VISIT EST Reviewed 06/19/2011 12:00 AM DRAIN/INJ JOINT/BURSA W/O US Reviewed 06/19/2011 12:00 AM Kenalog 40 Mg Im-Nd#8552-2049-84 Reviewed 08/25/2015 12:00 AM OFFICE/OUTPATIENT VISIT EST Reviewed 08/23/2015 12:00 AM Decadron, Per 1 Mg [facility]# [address]-27 Reviewed 08/23/2015 12:00 AM Depo-Medrol, Per 80 Mg [facility]#[address]-36 Reviewed 09/07/2015 12:00 AM X-RAY EXAM L-S [...] 10/23/2015 12:00 AM Decadron, Per 1 Mg [facility]# [address]-44 Reviewed 10/23/2015 12:00 AM Depo-Medrol, Per 80 Mg [facility]#[address]-96 Reviewed 07/26/2011 12:00 AM X-RAY EXAM OF ABDOMEN Reviewed 11/21/2015 12:00 AM Orthopedics Consultation Reviewed 11/21/2015 12:00 AM Physical Therapy Consultation Reviewed 12/20/2015 12:00 AM EXTREMITY STUDY Reviewed 10/12/2011 12:00 AM EXTREMITY STUDY Reviewed 05/10/2016 12:00 AM CONTRAST X-RAY OF SHOULDER Reviewed 07/09/2016 12:00 AM PNEUMOCOCCAL VACC 13 RIP IM Reviewed 08/08/2016 12:00 AM Decadron, Per 1 Mg [facility]# [address]-94 Reviewed 08/08/2016 12:00 AM Depo-Medrol, Per 80 Mg [facility]#[address]-15 Reviewed 01/01/2012 12:00 AM AIRWAY INHALATION TREATMENT Reviewed 01/01/2012 12:00 AM Rocephin 1 gm [facility]#[address]-79 Reviewed 01/16/2012 12:00 AM DRAIN/INJ JOINT/BURSA W/O US Reviewed 01/16/2012 12:00 AM Kenalog per 10Mg Im-[facility]#[address]-33(Srinath) Reviewed 09/26/2016 12:00 AM CHEST X-RAY 2VW [...] Per 1 Mg (2ml) [facility] [address]-63 Reviewed 06/05/2012 12:00 AM DRAIN/INJ JOINT/BURSA W/O US Reviewed 06/05/2012 12:00 AM SYNVISC, Per 1 Mg (2ml) [facility] [address]-62 Reviewed 06/12/2012 12:00 AM DRAIN/INJ JOINT/BURSA W/O US Reviewed 06/12/2012 12:00 AM SYNVISC, Per 1 Mg (2ml) [facility] [address]-92 Reviewed 06/06/2017 12:00 AM Decadron 4mg Injection Reviewed 06/06/2017 12:00 AM Depo-Medrol 40mg Injection Reviewed 06/06/2017 12:[address] ABD & PELV 1/> REGNS Returned 07/16/2012 12:00 AM Hepatobiliary ductal system imaging with functional assessment Reviewed 07/16/2012 12:00 AM Decadron 8 mg [facility]#[id number] Reviewed 07/16/2012 12:00 AM Depo-Medrol 80mg [facility]#[id number] Reviewed 07/16/2012 12:00 AM COMPREHEN METABOLIC PANEL Reviewed 07/16/2012 12:00 AM LIPID PANEL Reviewed 07/16/2012 12:00 AM Flu Injection 3 Years And Above [facility]# [address]-18 RHC Reviewed 08/19/2012 12:00 AM METABOLIC PANEL TOTAL CA Reviewed 12/21/2009 12:[address] ABDOMEN W/O & W/DYE Reviewed 10/02/2012 12:00 AM CHEST X-RAY 2VW FRONTAL&LATL Reviewed 10/09/2012 12:00 AM Decadron 8 mg [facility]#[id number] Reviewed 10/09/2012 12:00 AM Depo-Medrol 80mg [facility]#66353277988 Reviewed 12/09/2012 12:00 AM CHEST X-RAY 2VW [...] Per 1 Mg (6ml) [facility] [address]-72 Reviewed 02/26/2013 12:00 AM Physical Therapy Reviewed 02/26/2013 12:[address] NECK SPINE W/O & W/DYE Reviewed 04/07/2013 12:00 AM INJECT TRIGGER POINTS 3/> Reviewed 04/07/2013 12:00 AM Kenalog per 10Mg Im-[facility]#[address]-17(Srinath) Reviewed 07/21/2013 12:00 AM CHEST X-RAY 2VW FRONTAL&LATL Reviewed 07/21/2013 12:00 AM Decadron 8 mg [facility]# [address]-26 Reviewed 07/21/2013 12:00 AM Depo-Medrol 80 mg [facility]#[address]-52 Reviewed 07/21/2013 12:00 AM Rocephin 500 mg [facility]#2344-4374-87 Reviewed 09/22/2013 12:00 AM CHEST X-RAY 2VW FRONTAL&LATL Reviewed 10/29/2013 12:00 AM X-RAY EXAM OF ABDOMEN Reviewed 12/08/2013 12:00 AM THER/PROPH/DIAG INJ SC/IM Reviewed 12/08/2013 12:00 AM Decadron, Per 1 Mg [facility]# [address]-30 Reviewed 12/08/2013 12:00 AM Depo-Medrol, Per 80 Mg [facility]#0274-85[address]-03 Reviewed 12/08/2013 12:00 AM CHEST X-RAY 2VW [...] Reviewed 01/05/2014 12:00 AM Decadron 8 mg [facility]# [address]-53 Reviewed 01/05/2014 12:00 AM Depo-Medrol 80 mg [facility]#[address]-78 Reviewed 01/05/2014 12:00 AM Rocephin 1 gram [facility]#5893-1760-73 Reviewed 03/15/2010 12:00 AM PROTHROMBIN TIME Reviewed [...] per 10Mg [facility]#[address]-24(Srinath) Reviewed 05/05/2014 12:00 AM DRAIN/INJ JOINT/BURSA W/O US Reviewed 05/05/2014 12:00 AM SYNVISC-ONE, Per 1 Mg (6ml) [facility] [address]-54 Reviewed 05/06/2014 12:00 AM COMPREHEN METABOLIC PANEL [...] 12:00 AM Rocephin 500 mg [facility]#[address]-03 Reviewed 07/14/2014 12:00 AM Fluzone MEDICARE Only Reviewed 11/29/2010 12:00 AM INJECT TRIGGER POINTS 3/> Reviewed 11/29/2010 12:00 AM Kenalog per 10Mg [facility]#[address]-24(Srinath) Reviewed 07/14/2014 12:00 AM Decadron injection Reviewed [...] CVX Pneumococcal 07/09/2016 [facility] Prevnar 13 [id number] Intramuscular Right Deltoid 07/09/2016 07/28/2015 133 History [...] spondylosis Fe2014 2:04PM Lumbar degenerative disc disease Feb 2014 [...] 2017 10:08AM Lumbago Jun 06 2017 10:08AM Payers Insurance Name Company Name Plan Name Plan Number Policy Number Policy Group Number Start Date Medicare RHC Medicare RHC [id number] N/A [employer] [employer] [id number] N/A [employer] Medicare [employer] Ins [phone] N/A [place] Medical Assistance [facility] Medical Assistance Prog [id number] N/A Medicare Part B Medicare Of [place] [id number] Friday, 2008 Medicare Part A Medicare Part A [id number] N/A [facility] - RHC - [facility] Plan [facility] RHC Comm [id number] Wednesday, 2015 [employer] - [place] - [place] State [place] [employer] - RHC [place] State Plan [id number] Wednesday, 2015 Medicare Part A Medicare - Lab/Xray [id number] N/A History of Encounters Visit Date Visit Type Provider 06/06/2017 Office visit Melecio Wilkinson DO 04/03/2017 Office visit Melecio Wilkinson DO 03/28/2017 Office visit Melecio Wilkinson DO 03/11/2017 Office visit Melecio Wilkinson DO 03/05/2017 Hospital Ama Barrios MD 02/22/2017 Office visit Melecio Wilkinson DO 02/05/2017 Office visit Melecio Wilkinson DO 2017 [facility] Rasta Mckeon MD 2017 Hospital Ama Barrios MD 01/09/2017 Office visit Melecio Wilkinson DO 01/01/2017 [facility] Seth Devlin DO 12/31/2016 [facility] Rasta Mckeon MD 12/31/2016 [facility] Ama Barrios MD 12/21/2016 Office visit Melecio Wilkinson DO 11/20/2016 Office visit Melecio Wilkinson DO 11/05/2016 Office visit Melecio Wilkinson DO 10/23/2016 Office visit Melecio [place] DO 10/10/2016 Office visit Melecio Jaja DO 09/26/2016 Office visit Melecio Jaja DO 08/28/2016 Office visit Melecio Jaja DO 08/08/2016 Office visit Melecio Jaja DO 07/09/2016 Office visit Melecio [place] DO 07/06/2016 Hospital Ama Barrios MD 07/06/2016 [...] visit Katty CRAIG 03/28/2015 Office visit Melecio rCuzte DO 03/15/2015 Office visit Katty CRAIG 02/28/2015 [...] MD 12/02/2014 Hospital Alfa Platt MD 12/02/2014 [facility] Magi Powers MD 11/29/2014 [facility] Magi Powers MD 11/29/2014 Voided Katty CRAIG 11/11/2014 Office visit 11/11/2014 Office visit Katty CRAIG 11/11/2014 Office visit Melecio Jaja DO 10/14/2014 Office visit Katty CRAIG 09/14/2014 Office visit Katty CRAIG 09/08/2014 [facility] Ama Barrios MD 09/07/2014 Office [...] Navarrete APRN 12/08/2013 Office visit Janis Navarrete FAGOTER 11/25/2013 Office visit Katty [place] ELECTRONIC SYSTEMS SECURITY ASSESSMENT 10/29/2013 Office visit Melecio Wilkinson DO 09/22/2013 Office visit Janis Navarrete FAGOTER 07/28/2013 Office visit Kattyalton [place] ELECTRONIC SYSTEMS SECURITY ASSESSMENT 07/21/2013 Office visit Melecio Wilkinson DO 07/08/2013 Office visit Katty [place] DURÁNP 05/06/2013 Office visit Melecio Wilkinson DO 04/07/2013 Office visit Gorge Yo MD 02/26/2013 Office visit Melecio Wilkinson DO 01/29/2013 Office visit Gorge Yo MD 01/06/2013 Office visit Gorge Yo MD 12/09/2012 [facility] Ama Barrios MD 12/09/2012 Office visit Stephanie Richardson FAGOTER 11/26/2012 Office visit Gorge Yo MD 10/30/2012 [facility] Gorge Yo MD 10/29/2012 Office [...] Office visit Gorge Yo MD 05/12/2012 [facility] DO 05/11/2012 [facility] DO 03/13/2012 Office visit Gorge Yo MD 02/05/2012 Office visit Melecio Wilkinson DO 01/31/2012 Office visit Gorge Yo MD 01/16/2012 Office visit Gorge Yo MD 01/01/2012 Office visit Melecio Wilkinson DO 11/16/2011 Office visit Gorge Yo MD 10/05/2011 Office visit Gorge Yo MD 10/01/2011 Office visit Janis Navarrete FAGOTER 09/06/2011 Office visit Gorge Yo MD 07/26/2011 [...] 09/28/2010 Office visit Gorge Yo MD 09/05/2010 [facility] Gorge Yo MD 08/28/2010 Office [...] Procedures Gorge Yo MD 08/23/2009 Office visit Goreg Yo MD 07/06/2009 Laboratory Vamshi Aguero MD 06/27/2009 Office visit Gorge Yo MD 06/17/2009 Office visit Vamshi Aguero MD 05/24/2009 Office visit Gorge Yo MD
--- NOTE | 2018-01-22 13:43 | ICD Generator Change ---
ICD Generator Change Physician (s)/Balancer (s) Physician SAMI QUINN MD Pre-Procedure Diagnosis Pre-Procedure Diagnosis: Ventricular tachycardia Post-Procedure Note Procedure Start Date: January 22, 2018 Name of Procedure: Dual chamber ICD generator replacement Findings/Procedure Note After explaining the procedure to the patient all pros and cons were explained all questions were answered patient was placed on the cardiac catheterization laboratory, conscious sedation achieved, local anesthesia applied, skin incision was made then and the device was removed from the pocket, pocket was irrigated and enlarged slightly to fit the new device more comfortably. The leads were disconnected from the old device and an implanted and then no device using a Medtronic device ICD dual-chamber [employer] MRI SERIAL NUMBER [id number]. Placed in the skin pocket after irrigating the pocket then pocket was closed. Interrogation to the device showed good sensing and capture activity. No complication noted Conclusion Successful dual-chamber ICD generator replacement with no complication Estimated blood loss (mL): 5 ml Contrast Amount: 0 ml Post-Procedure Diagnosis Post-operative diagnosis: Ventricular tachycardia Coronary artery disease Hypertension Hyperlipidemia SAMI QUINN MD January 22, 2018 13:43
--- OUTSIDE RECORDS SUMMARY | 2018-01-22 13:44 | XMS REPORT ---
Author Author Melecio Wilkinson [facility] Address [address] [place] [phone] Care Team Providers Care Tower Supervisor Name Role Phone Melecio Wilkinsno PCP Unavailable Melecio Wilkinson PreferredProvider Unavailable Allergies [...] route once daily in the evening oxycodone 30 mg oral tablet,oral only,ext.rel.12 hr 11/20/2016 12/20/2016 take 1 tablet (30 mg) by oral route every 8 hours oxycodone 20 mg oral tablet 11/21/2016 12/21/2016 take 1 tablet by oral route q6h prn for 30 days May fill 11/26/16 zolpidem 10 mg oral tablet 11/22/2016 01/21/2017 [...] for 30 days Discontinued by Hospitalist at [place] niacin 500 mg oral tablet 10/10/2016 take [...] route every 12 hours for 30 days [place] guerita Amitiza 24 mcg oral capsule 05/03/2016 [...] HC BMI BSA BMI Percentile O2 Sat(%) 11/20/2016 10:28:00 AM 142 mmHg 76 mmHg [...] 10 Mg [facility] [place]#7052-2339-18 Reviewed 06/19/2011 12:00 AM DRAIN/INJ JOINT/BURSA W/O US Reviewed 06/19/2011 12:00 AM Kenalog 40 Mg [facility]#0885-7562-10 Reviewed 08/25/2015 12:00 AM OFFICE/OUTPATIENT VISIT EST Reviewed 08/23/2015 12:00 AM Decadron, Per 1 Mg [facility] [place] [address]-17 Reviewed 08/23/2015 12:00 AM Depo-Medrol, Per 80 Mg [facility] [place]#[address]-56 Reviewed 09/07/2015 12:00 AM X-RAY EXAM L-S [...] Mg [facility] [place] [address]-58 Reviewed 08/08/2016 12:00 AM Depo-Medrol, Per 80 Mg [facility] [place]#[address]-09 Reviewed 01/01/2012 12:00 AM Rocephin 1 gm [facility] [place]#[address]-75 Reviewed 01/16/2012 12:00 AM DRAIN/INJ JOINT/BURSA W/O US Reviewed 01/16/2012 12:00 AM Kenalog per 10Mg [facility]#[address]-35(Srinath) Reviewed 09/26/2016 12:00 AM CHEST X-RAY 2VW [...] (2ml) [facility] [place] [address]-15 Reviewed 06/05/2012 12:00 AM DRAIN/INJ JOINT/BURSA W/O US Reviewed 06/05/2012 12:00 AM SYNVISC, Per 1 Mg (2ml) [facility] [place] [address]-42 Reviewed 06/12/2012 12:00 AM DRAIN/INJ JOINT/BURSA W/O US Reviewed 06/12/2012 12:00 AM SYNVISC, Per 1 Mg (2ml) [facility] [place] [address]-92 Reviewed 07/16/2012 12:00 AM Hepatobiliary ductal system imaging with functional assessment Reviewed 07/16/2012 12:00 AM Decadron 8 mg [facility] [place]#[id number] Reviewed 07/16/2012 12:00 AM Depo-Medrol 80mg [facility] [place]#45322792334 Reviewed 07/16/2012 12:00 AM COMPREHEN METABOLIC PANEL Reviewed 07/16/2012 12:00 AM LIPID PANEL Reviewed 07/16/2012 12:00 AM Flu Injection 3 Years And Above [facility] [place] [address]-29 RHC Reviewed 08/19/2012 12:00 AM METABOLIC PANEL TOTAL CA Reviewed 12/21/2009 12:[address] ABDOMEN W/O & W/DYE Reviewed 10/02/2012 12:00 AM CHEST X-RAY 2VW FRONTAL&LATL Reviewed 10/09/2012 12:00 AM Decadron 8 mg [facility] [place]#23876831343 Reviewed 10/09/2012 12:00 AM Depo-Medrol 80mg [facility] [place]#75207032196 Reviewed 12/09/2012 12:00 AM CHEST X-RAY 2VW [...] (6ml) [facility] [place] [address]-89 Reviewed 02/26/2013 12:[address] NECK SPINE W/O & W/DYE Reviewed 04/07/2013 12:00 AM INJECT TRIGGER POINTS 3/> Reviewed 04/07/2013 12:00 AM Kenalog per 10Mg [facility]#[address]-49(Srinath) Reviewed 07/21/2013 12:00 AM CHEST X-RAY 2VW FRONTAL&LATL Reviewed 07/21/2013 12:00 AM Decadron 8 mg [facility] [place]# [address]-26 Reviewed 07/21/2013 12:00 AM Depo-Medrol 80 mg [facility] [place]#[address]-89 Reviewed 07/21/2013 12:00 AM Rocephin 500 mg [facility] [place]#6314-1054-51 Reviewed 09/22/2013 12:00 AM CHEST X-RAY 2VW FRONTAL&LATL Reviewed 10/29/2013 12:00 AM X-RAY EXAM OF ABDOMEN Reviewed 12/08/2013 12:00 AM THER/PROPH/DIAG INJ SC/IM Reviewed 12/08/2013 12:00 AM Decadron, Per 1 Mg [facility] [place] [address]-93 Reviewed 12/08/2013 12:00 AM Depo-Medrol, Per 80 Mg [facility] [place]#9828-0863-65 Reviewed 12/08/2013 12:00 AM CHEST X-RAY 2VW [...] mg [facility] [place] [address]-83 Reviewed 01/05/2014 12:00 AM Depo-Medrol 80 mg [facility] [place]#[address]-32 Reviewed 01/05/2014 12:00 AM Rocephin 1 gram [facility] [place]#7372-0904-51 Reviewed 03/15/2010 12:00 AM PROTHROMBIN TIME Reviewed [...] 09/28/2010 12:00 AM Kenalog per 10Mg [facility]#[address]-25(Srinath) Reviewed 05/05/2014 12:00 AM DRAIN/INJ JOINT/BURSA W/O US Reviewed 05/05/2014 12:00 AM SYNVISC-ONE, Per 1 Mg (6ml) [facility] [place] [address]-49 Reviewed 05/06/2014 12:00 AM COMPREHEN METABOLIC PANEL [...] 500 mg [facility] [place]#[address]-36 Reviewed 07/14/2014 12:00 AM Fluzone MEDICARE Only Reviewed 11/29/2010 12:00 AM INJECT TRIGGER POINTS 3/> Reviewed 11/29/2010 12:00 AM Kenalog per 10Mg [facility]#[address]-78(Srinath) Reviewed 07/14/2014 12:00 AM Decadron injection Reviewed [...] CVX Pneumococcal 07/09/2016 [facility] Prevnar 13 [id number] Intramuscular Right Deltoid 07/09/2016 07/28/2015 133 History [...] 2016 10:29AM Lumbago Nov 20 2016 10:29AM Payers Insurance Name Company Name Plan Name Plan Number Policy Number Policy Group Number Start Date Medicare RHC Medicare RHC [id number] N/[place] [employer] [employer] [place] [id number] N/A [employer] Medicare [employer] Ins [phone] N/A [place] Medical [place] Program [place] Prog [id number] N/A Medicare Part B Medicare Of [place] [id number] Friday, 2008 Medicare Part A Medicare Part A [id number] N/A [facility] - [facility] Comm [id number] Wednesday, 2015 [employer] - [place] [employer] [place] [id number] Wednesday, 2015 Medicare Part A Medicare - Lab/Xray [id number] N/A History of Encounters Visit Date Visit Type Provider 11/20/2016 Office visit Melecio Wilkinson DO 11/05/2016 Office visit Melecio Wilkinson DO 10/23/2016 Office visit Melecio Jaja DO 10/10/2016 Office visit Melecio Jaja DO 09/26/2016 Office visit Melecio Jaja DO 08/28/2016 Office visit Melecio Jaja DO 08/08/2016 Office visit Melecio Jaja DO 07/09/2016 Office visit Melecio Wilkinson DO 07/06/2016 Hospital Ama Barrios MD 07/06/2016 Hospital David Pual MD 07/05/2016 Surgery Ama Barrios MD 07/03/2016 Laboratory Ama Barrios MD 06/07/2016 Office visit Melecio Jaja DO 05/03/2016 Office visit Melecio Jaja DO 04/11/2016 Office visit Melecio Jaja DO 02/17/2016 Office visit Melecio Jaja DO 01/19/2016 Office visit Melecio Jaja DO 12/20/2015 Office visit Melecio Cruzte DO 11/21/2015 Office visit Melecio Jaja DO [...] DO 01/12/2015 Office visit Katty CRAIG 12/16/2014 [facility] Alfa Platt MD 12/14/2014 Voided Melecio Jaja DO 12/08/2014 Office visit Alfa Platt MD 12/08/2014 Office visit Melecio Wilkinson DO 12/07/2014 Nurse visit Riri Salazar MD 12/02/2014 [facility] Alfa Platt MD 12/02/2014 [facility] Magi Powers MD 11/29/2014 [facility] Magi Powers MD 11/29/2014 Voided Katty CRAIG [...] Jaja DO 12/18/2013 Office visit Janis Navarrete [facility] REFEREE 12/08/2013 Office visit Janis Navarrete [facility] REFEREE 11/25/2013 Office visit Katty CRAIG 10/29/2013 Office [...] Barrios MD 12/09/2012 Office visit Stephanie Richardson [facility]IC COURT REFEREE 11/26/2012 Office visit Gorge Yo MD 10/30/2012 [facility] Gorge Yo MD 10/29/2012 Office visit Gorge [...] 05/12/2012 [facility] DO 05/11/2012 [facility] DO 03/13/2012 Office visit Gorge Yo MD [...] visit Gorge Yo MD 06/06/2011 Office visit oGrge Yo MD 03/22/2011 Office visit Gorge Yo MD 03/05/2011 Office visit Melecio Wilkinson DO 02/06/2011 [facility] Gorge Yo MD 01/08/2011 Office visit Melecio Wilkinson DO 12/27/2010 Office visit Gorge Yo MD 11/29/2010 Office visit Gorge Yo MD 11/07/2010 Office visit Melecio Wilkinson DO 09/28/2010 Office visit Gorge Yo MD 09/05/2010 [facility] Gorge Yo MD 08/28/2010 Office visit Gorge Yo MD 08/07/2010 Office visit Janis Navarrete APRN 07/25/2010 Office visit Melecio Wilkinson DO 06/27/2010 Office visit Gorge Yo MD 06/14/2010 Office visit Melecio Wilkinson DO 06/06/2010 Laboratory Alfonso Camacho MD 06/01/2010 Office visit Melecio Wilkinson DO 04/17/2010 Office visit Melecio Wilkinson DO 04/06/2010 Office visit Gorge Yo MD 04/02/2010 [facility] Alfonso Camacho MD 03/31/2010 Laboratory Alfonso Camacho MD 03/31/2010 Laboratory Alfonso Camacho MD 03/31/2010 [facility] Alfonso Camacho MD 03/21/2010 Procedures Gorge Yo [...]
[2018-01-22] MEDS ORDERED: PATIENT MAY USE OWN MEDS, ALL PO SCH (13:45)
--- OUTSIDE RECORDS SUMMARY | 2018-01-22 13:49 | XMS REPORT ---
Author Author Melecio Wilkinson [facility] Address [address] [place] [phone] Care Team Providers Care Supervisor Mending Name Role Phone Melecio Wilkinson PCP Unavailable [...] oral route once daily for 5 days metolazone 10 mg oral tablet 01/14/2017 take 1 tablet (10 mg) by oral route once daily Klor-Con 10 10 mEq oral tablet extended release 01/14/2017 01/24/2017 take 1 tablet (10 meq) by oral route once daily with food for 10 days Name Start Date Expiration Date SIG [...] for 30 days Discontinued by Hospitalist at [place] niacin 500 mg oral tablet 10/10/2016 take [...] route every 12 hours for 30 days Rosharon guerita Amitiza 24 mcg oral capsule 05/03/2016 [...] 07/11/2015 12:00 AM Kenalog, Per 10 Mg [facility]#3546-9356-73 Reviewed 12/07/2014 12:00 AM OFFICE/OUTPATIENT VISIT EST Reviewed 06/19/2011 12:00 AM DRAIN/INJ JOINT/BURSA W/O US Reviewed 06/19/2011 12:00 AM Kenalog 40 Mg [facility]#8563-3921-88 Reviewed 08/25/2015 12:00 AM OFFICE/OUTPATIENT VISIT EST Reviewed 08/23/2015 12:00 AM Decadron, Per 1 Mg [facility]# [address]-59 Reviewed 08/23/2015 12:00 AM Depo-Medrol, Per 80 Mg [facility]#[address]-86 Reviewed 09/07/2015 12:00 AM X-RAY EXAM L-S [...] 10/23/2015 12:00 AM Decadron, Per 1 Mg [facility]# [address]-05 Reviewed 10/23/2015 12:00 AM Depo-Medrol, Per 80 Mg [facility]#[address]-16 Reviewed 07/26/2011 12:00 AM X-RAY EXAM OF ABDOMEN Reviewed 11/21/2015 12:00 AM Orthopedics Consultation Reviewed 11/21/2015 12:00 AM Physical Therapy Consultation Reviewed 12/20/2015 12:00 AM EXTREMITY STUDY Reviewed 10/12/2011 12:00 AM EXTREMITY STUDY Reviewed 05/10/2016 12:00 AM CONTRAST X-RAY OF SHOULDER Reviewed 07/09/2016 12:00 AM PNEUMOCOCCAL VACC 13 RIP IM Reviewed 08/08/2016 12:00 AM Decadron, Per 1 Mg [facility]# [address]-86 Reviewed 08/08/2016 12:00 AM Depo-Medrol, Per 80 Mg [facility]#[address]-47 Reviewed 01/01/2012 12:00 AM AIRWAY INHALATION TREATMENT Reviewed 01/01/2012 12:00 AM Rocephin 1 gm [facility]#[address]-96 Reviewed 01/16/2012 12:00 AM DRAIN/INJ JOINT/BURSA W/O US Reviewed 01/16/2012 12:00 AM Kenalog per 10Mg [facility]#[address]-69(Srinath) Reviewed 09/26/2016 12:00 AM CHEST X-RAY 2VW [...] 12:00 AM SYNVISC, Per 1 Mg (2ml) [facility] [address]-49 Reviewed 06/05/2012 12:00 AM DRAIN/INJ JOINT/BURSA W/O US Reviewed 06/05/2012 12:00 AM SYNVISC, Per 1 Mg (2ml) [facility] [address]-73 Reviewed 06/12/2012 12:00 AM DRAIN/INJ JOINT/BURSA W/O US Reviewed 06/12/2012 12:00 AM SYNVISC, Per 1 Mg (2ml) [facility] [address]-74 Reviewed 07/16/2012 12:00 AM Hepatobiliary ductal system imaging with functional assessment Reviewed 07/16/2012 12:00 AM Decadron 8 mg [facility]#[id number] Reviewed 07/16/2012 12:00 AM Depo-Medrol 80mg [facility]#35652531713 Reviewed 07/16/2012 12:00 AM COMPREHEN METABOLIC PANEL Reviewed 07/16/2012 12:00 AM LIPID PANEL Reviewed 07/16/2012 12:00 AM Flu Injection 3 Years And Above [facility]# [address]-86 RHC Reviewed 08/19/2012 12:00 AM METABOLIC PANEL TOTAL CA Reviewed 12/21/2009 12:[address] ABDOMEN W/O & W/DYE Reviewed 10/02/2012 12:00 AM CHEST X-RAY 2VW FRONTAL&LATL Reviewed 10/09/2012 12:00 AM Decadron 8 mg [facility]#[id number] Reviewed 10/09/2012 12:00 AM Depo-Medrol 80mg [facility]#05502802275 Reviewed 12/09/2012 12:00 AM CHEST X-RAY 2VW [...] 12:00 AM SYNVISC-ONE, Per 1 Mg (6ml) [facility] [address]-18 Reviewed 02/26/2013 12:00 AM Physical Therapy Reviewed 02/26/2013 12:[address] NECK SPINE W/O & W/DYE Reviewed 04/07/2013 12:00 AM INJECT TRIGGER POINTS 3/> Reviewed 04/07/2013 12:00 AM Kenalog per 10Mg [facility]#[address]-65(Srinath) Reviewed 07/21/2013 12:00 AM CHEST X-RAY 2VW FRONTAL&LATL Reviewed 07/21/2013 12:00 AM Decadron 8 mg [facility]# [address]-17 Reviewed 07/21/2013 12:00 AM Depo-Medrol 80 mg [facility]#[address]-59 Reviewed 07/21/2013 12:00 AM Rocephin 500 mg [facility]#5857-4523-42 Reviewed 09/22/2013 12:00 AM CHEST X-RAY 2VW FRONTAL&LATL Reviewed 10/29/2013 12:00 AM X-RAY EXAM OF ABDOMEN Reviewed 12/08/2013 12:00 AM THER/PROPH/DIAG INJ SC/IM Reviewed 12/08/2013 12:00 AM Decadron, Per 1 Mg [facility]# [address]-97 Reviewed 12/08/2013 12:00 AM Depo-Medrol, Per 80 Mg [facility]#6922-1117-73 Reviewed 12/08/2013 12:00 AM CHEST X-RAY 2VW [...] Reviewed 01/05/2014 12:00 AM Decadron 8 mg [facility]# [address]-28 Reviewed 01/05/2014 12:00 AM Depo-Medrol 80 mg [facility]#[address]-06 Reviewed 01/05/2014 12:00 AM Rocephin 1 gram [facility]#9962-6546-37 Reviewed 03/15/2010 12:00 AM PROTHROMBIN TIME Reviewed [...] Reviewed 09/28/2010 12:00 AM Kenalog per 10Mg [facility]#[address]-38(Srinath) Reviewed 05/05/2014 12:00 AM DRAIN/INJ JOINT/BURSA W/O US Reviewed 05/05/2014 12:00 AM SYNVISC-ONE, Per 1 Mg (6ml) [facility] [address]-93 Reviewed 05/06/2014 12:00 AM COMPREHEN METABOLIC PANEL [...] Reviewed 11/07/2010 12:00 AM Rocephin 500 mg [facility]#[address]-66 Reviewed 07/14/2014 12:00 AM Fluzone MEDICARE Only Reviewed 11/29/2010 12:00 AM INJECT TRIGGER POINTS 3/> Reviewed 11/29/2010 12:00 AM Kenalog per 10Mg [facility]#[address]-30(Srinath) Reviewed 07/14/2014 12:00 AM Decadron injection Reviewed [...] CVX Pneumococcal 07/09/2016 [facility] Prevnar 13 [id number] Intramuscular Right Deltoid 07/09/2016 07/28/2015 133 History [...] Number Start Date Medicare RHC Medicare RHC [id number] N/[place] [employer] [place] [employer] [place] [id number] N/A [employer] [place] [employer] [place] [employer] Ins [phone] N/A [place] Medical [place] Program [place] Prog [id number] N/A Medicare Part B Medicare Of [place] [id number] Friday, 2008 Medicare Part A Medicare Part A [id number] N/A [facility] - RHC - [facility] RHC Comm [id number] Wednesday, 2015 [employer] - [place] - [place] State Plan [facility] [place] State Plan [id number] Wednesday, 2015 Medicare Part A Medicare - Lab/Xray [id number] N/A History of Encounters Visit Date Visit [...] [facility] Magi Powers MD [facility]29[facility] Voided Katty CRAIG [...] visit Katty CRAIG 05/20/2014 Office visit Melecio Cruzte DO 05/14/2014 Office visit Melecio Wilkinson DO 05/05/2014 Office visit Katty Jefferson PIG MACHINE CRANE OPERATOR 04/26/2014 Office visit Katty Jefferson PIG MACHINE CRANE OPERATOR 03/24/2014 Office visit Katty Jefferson PIG MACHINE CRANE OPERATOR 02/24/2014 Office visit Katty Jefferson PIG MACHINE CRANE OPERATOR 01/05/2014 Office visit Melecio Jaja DO 12/23/2013 Office visit Katty Jefferson PIG MACHINE CRANE OPERATOR 12/23/2013 Office visit Melecio Jaja DO 12/18/2013 Office visit Janis Navarrete ERISA ATTORNEY 12/08/2013 Office visit Janis Navarrete ERISA ATTORNEY 11/25/2013 Office visit Katty Jefferson PIG MACHINE CRANE OPERATOR 10/29/2013 Office visit Melecio Wilkinson DO 09/22/2013 Office visit Janis Navarrete ERISA ATTORNEY 07/28/2013 Office visit Katty Jefferson PIG MACHINE CRANE OPERATOR 07/21/2013 Office visit Melecio Wilkinson DO 07/08/2013 Office visit Katty Jefferson PIG MACHINE CRANE OPERATOR 05/06/2013 Office visit Melecio Wilkinson DO 04/07/2013 Office visit Gorge Yo MD 02/26/2013 Office visit Melecio Wilkinson DO 01/29/2013 Office visit Gorge Yo MD 01/06/2013 Office visit Gorge Yo MD 12/09/2012 [facility] Ama Barrios MD 12/09/2012 Office visit Stephanie Richardson ERISA ATTORNEY 11/26/2012 Office visit Gorge Yo MD 10/30/2012 [facility] Gorge Yo MD 10/29/2012 Office visit Gorge Yo MD 10/09/2012 Office visit Melecio Wilkinson DO 08/19/2012 Office visit Melecio Wilkinson DO 08/04/2012 Office visit Melecio Wilkinson DO 07/24/2012 Office visit Gorge Yo MD 07/16/2012 Office visit Melecio Wilkinson DO 06/12/2012 Office visit Gorge Yo MD 06/05/2012 Office visit Gorge oY MD 05/29/2012 Office visit Gorge Yo MD 05/19/2012 Office visit Melecio Wilkinson DO 05/14/2012 Office visit Gorge Yo MD 05/12/2012 [facility] DO 05/11/2012 [facility] 03/13/2012 Office visit Gorge Yo MD [...]
[2018-01-22 13:50] VITALS: BP 121/75
--- OUTSIDE RECORDS SUMMARY | 2018-01-22 13:54 | XMS REPORT ---
Author Author Melecio Wilkinson [facility] Address [address] [place] [phone] Care Team Providers Care Cargo Checker Name Role Phone Melecio Wilkinson PCP Unavailable [...] 1 TABLET BY MOUTH EVERY DAY oxycodone 30 mg oral tablet,oral only,ext.rel.12 hr [...] 30 days oxycodone 20 mg oral tablet 03/14/2016 04/13/2016 take 1 tablet by oral route every [...] for 30 days Discontinued by Hospitalist at [place] Augmentin 875-125 mg oral tablet 11/07/2010 03/05/2011 [...] route every 12 hours for 30 days Cartwright stoned Problem List Description Status Onset SI [...] Kenalog, Per 10 Mg [facility]#4713-1753-01 Reviewed 06/19/2011 12:00 AM DRAIN/INJ JOINT/BURSA W/O US Reviewed 06/19/2011 12:00 AM Kenalog 40 Mg [facility]#2667-6706-64 Reviewed 08/25/2015 12:00 AM OFFICE/OUTPATIENT VISIT EST Reviewed 08/23/2015 12:00 AM Decadron, Per 1 Mg [facility]# [address]-48 Reviewed 08/23/2015 12:00 AM Depo-Medrol, Per 80 Mg [facility]#[address]-28 Reviewed 09/07/2015 12:00 AM X-RAY EXAM L-S [...] AM Rocephin 1 gm [facility]#[address]-42 Reviewed 01/16/2012 12:00 AM DRAIN/INJ JOINT/BURSA W/O US Reviewed 01/16/2012 12:00 AM Kenalog per 10Mg [facility]#[address]-16(Srinath) Reviewed 02/05/2012 12:[address] ABDOMEN W/O & W/DYE Reviewed 02/05/2012 12:[address] PELVIS W/O & W/DYE Reviewed 05/29/2012 12:00 AM DRAIN/INJ JOINT/BURSA W/O US Reviewed 05/29/2012 12:00 AM SYNVISC, Per 1 Mg (2ml) [facility] [address]-89 Reviewed 06/05/2012 12:00 AM DRAIN/INJ JOINT/BURSA W/O US Reviewed 06/05/2012 12:00 AM SYNVISC, Per 1 Mg (2ml) [facility] [address]-97 Reviewed 06/12/2012 12:00 AM DRAIN/INJ JOINT/BURSA W/O US Reviewed 06/12/2012 12:00 AM SYNVISC, Per 1 Mg (2ml) [facility] [address]-07 Reviewed 07/16/2012 12:00 AM Hepatobiliary ductal system imaging with functional assessment Reviewed 07/16/2012 12:00 AM Decadron 8 mg [facility]#52444685207 Reviewed 07/16/2012 12:00 AM Depo-Medrol 80mg [facility]#75243437765 Reviewed 07/16/2012 12:00 AM COMPREHEN METABOLIC PANEL Reviewed 07/16/2012 12:00 AM LIPID PANEL Reviewed 07/16/2012 12:00 AM Flu Injection 3 Years And Above [facility]# [address]-26 RHC Reviewed 08/19/2012 12:00 AM METABOLIC PANEL TOTAL CA Reviewed 12/21/2009 12:[address] ABDOMEN W/O & W/DYE Reviewed 10/02/2012 12:00 AM CHEST X-RAY 2VW FRONTAL&LATL Reviewed 10/09/2012 12:00 AM Decadron 8 mg [facility]#[id number] Reviewed 10/09/2012 12:00 AM Depo-Medrol 80mg [facility]#54985791569 Reviewed 12/09/2012 12:00 AM CHEST X-RAY 2VW [...] 1 Mg (6ml) [facility] [address]-26 Reviewed 02/26/2013 12:[address] NECK SPINE W/O & W/DYE Reviewed 04/07/2013 12:00 AM INJECT TRIGGER POINTS 3/> Reviewed 04/07/2013 12:00 AM Kenalog per 10Mg [facility]#[address]-17(Srinath) Reviewed 07/21/2013 12:00 AM CHEST X-RAY 2VW FRONTAL&LATL Reviewed 07/21/2013 12:00 AM Decadron 8 mg [facility]# [address]-49 Reviewed 07/21/2013 12:00 AM Depo-Medrol 80 mg [facility]#[address]-99 Reviewed 07/21/2013 12:00 AM Rocephin 500 mg [facility]#9665-9662-24 Reviewed 09/22/2013 12:00 AM CHEST X-RAY 2VW FRONTAL&LATL Returned 10/29/2013 12:00 AM X-RAY EXAM OF ABDOMEN Reviewed 12/08/2013 12:00 AM THER/PROPH/DIAG INJ SC/IM Reviewed 12/08/2013 12:00 AM Decadron, Per 1 Mg [facility]# [address]-87 Reviewed 12/08/2013 12:00 AM Depo-Medrol, Per 80 Mg [facility]#2704-4575-27 Reviewed 12/08/2013 12:00 AM CHEST X-RAY 2VW [...] Returned 01/05/2014 12:00 AM Decadron 8 mg [facility]# [address]-56 Reviewed 01/05/2014 12:00 AM Depo-Medrol 80 mg [facility]#[address]-53 Reviewed 01/05/2014 12:00 AM Rocephin 1 gram [facility]#1494-0979-59 Reviewed 03/15/2010 12:00 AM PROTHROMBIN TIME Reviewed [...] Kenalog per 10Mg [facility]#[address]-09(Srinath) Reviewed 05/05/2014 12:00 AM DRAIN/INJ JOINT/BURSA W/O US Reviewed 05/05/2014 12:00 AM SYNVISC-ONE, Per 1 Mg (6ml) [facility] [address]-58 Reviewed 05/06/2014 12:00 AM COMPREHEN METABOLIC PANEL [...] AM Rocephin 500 mg [facility]#[address]-04 Reviewed 07/14/2014 12:00 AM Fluzone MEDICARE Only Reviewed 11/29/2010 12:00 AM INJECT TRIGGER POINTS 3/> Reviewed 11/29/2010 12:00 AM Kenalog per 10Mg [facility]#[address]-38(Srinath) Reviewed 07/14/2014 12:00 AM Decadron injection Reviewed [...] Start Date Medicare Part A Medicare C [id number] N/A [employer] - [place] State [place] [employer] [place] State [place] [id number] Wednesday, 2015 Medicare Part A Medicare - Lab/Xray [id number] N/A [employer] [place] [employer] Medicare [employer] [place] [employer] Ins [id number] N/A [place] Medical Assistance [facility] Medical Assistance Prog [id number] N/A Medicare Part B Medicare Of [place] [id number] Friday, February 22, 2008 Medicare Part A Medicare Part A [id number] N/A [facility] Plan [facility] [id number] Wednesday, September 23, 2015 History of Encounters [...] [facility] 11/29/2014 [facility] [...] Jaja DO 06/21/2014 Office visit Katty Jefferson PLEATER 05/20/2014 Office visit Melecio Jaja DO 05/14/2014 Office visit Melecio Jaja DO 05/05/2014 Office visit Katty Jefferson PLEATER 04/26/2014 Office visit Katty Jefferson PLEATER 03/24/2014 Office visit Katty Jefferson PLEATER 02/24/2014 Office visit Katty Jefferson PLEATER 01/05/2014 Office visit Melecio Jaja DO 12/23/2013 Office visit Katty Jefferson PLEATER 12/23/2013 Office visit Melecio Jaja DO 12/18/2013 Office visit Janis Navarrete HALAL BUTCHER 12/08/2013 Office visit Janis Navarrete HALAL BUTCHER 11/25/2013 Office visit Katty Jefferson PLEATER 10/29/2013 Office visit Melecio Jaja DO 09/22/2013 Office visit Janis Navarrete HALAL BUTCHER 07/28/2013 Office visit Katty Jefferson PLEATER 07/21/2013 Office visit Melecio Jaja DO 07/08/2013 Office visit Katty Jefferson PLEATER 05/06/2013 Office visit Melecio Wilkinson DO 04/07/2013 Office visit Gorge Yo MD 02/26/2013 Office visit Melecio Wilkinson DO 01/29/2013 Office visit Gorge Yo MD 01/06/2013 Office visit Gorge Yo MD 12/09/2012 [facility] Ama Barrios MD 12/09/2012 Office visit Stephanie Richardson HALAL BUTCHER 11/26/2012 Office visit Gorge Yo MD 10/30/2012 [...] 05/14/2012 Office visit Gorge Yo MD 05/12/2012 [facility] DO 05/11/2012 [facility] DO 03/13/2012 Office visit Gorge Yo [...]
--- OUTSIDE RECORDS SUMMARY | 2018-01-22 14:00 | XMS REPORT ---
Author Author Melecio Wilkinson [facility] Address [address] [place], [place] [phone] Care Team Providers Care Holder Pile Driving Name Role Phone Melecio Wilkinson PCP Unavailable [...] for 30 days Discontinued by Hospitalist at [place] niacin 500 mg oral tablet 10/10/2016 take [...] HC BMI BSA BMI Percentile O2 Sat(%) 03/28/2017 1:32:00 PM 132 mmHg 70 mmHg [...] Per 10 Mg [facility]#0161-8437-23 Reviewed 12/07/2014 12:00 AM OFFICE/OUTPATIENT VISIT EST Reviewed 06/19/2011 12:00 AM DRAIN/INJ JOINT/BURSA W/O US Reviewed 06/19/2011 12:00 AM Kenalog 40 Mg [facility]#1439-1905-41 Reviewed 08/25/2015 12:00 AM OFFICE/OUTPATIENT VISIT EST Reviewed 08/23/2015 12:00 AM Decadron, Per 1 Mg [facility]# [address]-72 Reviewed 08/23/2015 12:00 AM Depo-Medrol, Per 80 Mg [facility]#[address]-23 Reviewed 09/07/2015 12:00 AM X-RAY EXAM L-S [...] 1 Mg [facility]# [address]-11 Reviewed 10/23/2015 12:00 AM Depo-Medrol, Per 80 Mg [facility]#[address]-05 Reviewed 07/26/2011 12:00 AM X-RAY EXAM OF ABDOMEN Reviewed 11/21/2015 12:00 AM Orthopedics Consultation Reviewed 11/21/2015 12:00 AM Physical Therapy Consultation Reviewed 12/20/2015 12:00 AM EXTREMITY STUDY Reviewed 10/12/2011 12:00 AM EXTREMITY STUDY Reviewed 05/10/2016 12:00 AM CONTRAST X-RAY OF SHOULDER Reviewed 07/09/2016 12:00 AM PNEUMOCOCCAL VACC 13 RIP IM Reviewed 08/08/2016 12:00 AM Decadron, Per 1 Mg [facility]# [address]-16 Reviewed 08/08/2016 12:00 AM Depo-Medrol, Per 80 Mg [facility]#[address]-25 Reviewed 01/01/2012 12:00 AM AIRWAY INHALATION TREATMENT Reviewed 01/01/2012 12:00 AM Rocephin 1 gm [facility]#[address]-26 Reviewed 01/16/2012 12:00 AM DRAIN/INJ JOINT/BURSA W/O US Reviewed 01/16/2012 12:00 AM Kenalog per 10Mg [facility]#[address]-26(Srinath) Reviewed 09/26/2016 12:00 AM CHEST X-RAY 2VW [...] Mg (2ml) [facility] [address]-09 Reviewed 06/05/2012 12:00 AM DRAIN/INJ JOINT/BURSA W/O US Reviewed 06/05/2012 12:00 AM SYNVISC, Per 1 Mg (2ml) [facility] [address]-03 Reviewed 06/12/2012 12:00 AM DRAIN/INJ JOINT/BURSA W/O US Reviewed 06/12/2012 12:00 AM SYNVISC, Per 1 Mg (2ml) [facility] [address]-60 Reviewed 07/16/2012 12:00 AM Hepatobiliary ductal system imaging with functional assessment Reviewed 07/16/2012 12:00 AM Decadron 8 mg [facility]#[id number] Reviewed 07/16/2012 12:00 AM Depo-Medrol 80mg [facility]#20762016284 Reviewed 07/16/2012 12:00 AM COMPREHEN METABOLIC PANEL Reviewed 07/16/2012 12:00 AM LIPID PANEL Reviewed 07/16/2012 12:00 AM Flu Injection 3 Years And Above [facility]# [address]-96 RHC Reviewed 08/19/2012 12:00 AM METABOLIC PANEL TOTAL CA Reviewed 12/21/2009 12:[address] ABDOMEN W/O & W/DYE Reviewed 10/02/2012 12:00 AM CHEST X-RAY 2VW FRONTAL&LATL Reviewed 10/09/2012 12:00 AM Decadron 8 mg [facility]#56920485251 Reviewed 10/09/2012 12:00 AM Depo-Medrol 80mg [facility]#04193804947 Reviewed 12/09/2012 12:00 AM CHEST X-RAY 2VW [...] Mg (6ml) [facility] [address]-06 Reviewed 02/26/2013 12:00 AM Physical Therapy Reviewed 02/26/2013 12:[address] NECK SPINE W/O & W/DYE Reviewed 04/07/2013 12:00 AM INJECT TRIGGER POINTS 3/> Reviewed 04/07/2013 12:00 AM Kenalog per 10Mg [facility]#[address]-55(Srinath) Reviewed 07/21/2013 12:00 AM CHEST X-RAY 2VW FRONTAL&LATL Reviewed 07/21/2013 12:00 AM Decadron 8 mg [facility]# [address]-67 Reviewed 07/21/2013 12:00 AM Depo-Medrol 80 mg [facility]#[address]-99 Reviewed 07/21/2013 12:00 AM Rocephin 500 mg [facility]#1309-4311-07 Reviewed 09/22/2013 12:00 AM CHEST X-RAY 2VW FRONTAL&LATL Reviewed 10/29/2013 12:00 AM X-RAY EXAM OF ABDOMEN Reviewed 12/08/2013 12:00 AM THER/PROPH/DIAG INJ SC/IM Reviewed 12/08/2013 12:00 AM Decadron, Per 1 Mg [facility]# [address]-29 Reviewed 12/08/2013 12:00 AM Depo-Medrol, Per 80 Mg [facility]#5524-8916-84 Reviewed 12/08/2013 12:00 AM CHEST X-RAY 2VW [...] 8 mg [facility]# [address]-02 Reviewed 01/05/2014 12:00 AM Depo-Medrol 80 mg [facility]#[address]-57 Reviewed 01/05/2014 12:00 AM Rocephin 1 gram [facility]#9677-8204-51 Reviewed 03/15/2010 12:00 AM PROTHROMBIN TIME Reviewed [...] per 10Mg [facility]#[address]-20(Srinath) Reviewed 05/05/2014 12:00 AM DRAIN/INJ JOINT/BURSA W/O US Reviewed 05/05/2014 12:00 AM SYNVISC-ONE, Per 1 Mg (6ml) [facility] [address]-37 Reviewed 05/06/2014 12:00 AM COMPREHEN METABOLIC PANEL [...] Rocephin 500 mg [facility]#[address]-55 Reviewed 07/14/2014 12:00 AM Fluzone MEDICARE Only Reviewed 11/29/2010 12:00 AM INJECT TRIGGER POINTS 3/> Reviewed 11/29/2010 12:00 AM Kenalog per 10Mg [facility]#[address]-97(Srinath) Reviewed 07/14/2014 12:00 AM Decadron injection Reviewed [...] CVX Pneumococcal 07/09/2016 [facility] Prevnar 13 [id number] Intramuscular Right Deltoid 07/09/2016 07/28/2015 133 History [...] 3:21PM Pain in joint; Knee,right George 30 2011 11:15AM Carcinoma in situ of bronchus [...] 22 2013 9:25AM Chronic Obstructive Pulmonary Disease Oct 29 2013 9:08AM Congestive Heart Failure Feb 6 [...] 2013 11:25AM Congestive Heart Failure Dec 23 2014 11:25AM Hypertension Dec 23 2013 11:25AM Lumbago [...] and lung, right Mar 11 2017 9:14AM Payers Insurance Name Company Name Plan Name Plan Number Policy Number Policy Group Number Start Date Medicare RHC Medicare RHC [id number] N/A [employer] [place] [employer] [place] [id number] N/A [employer] Medicare [employer] Ins [id number] N/A [place] Medical Assistance Program [place] Prog [id number] N/A Medicare Part B Medicare [place] [id number] Friday, 2008 Medicare Part A Medicare Part A [id number] N/A [facility] - RHC - Community Plan [facility] RHC Comm [id number] Wednesday, 2015 [employer] [place] [employer] [place] [id number] Wednesday, 2015 Medicare Part A Medicare - Lab/Xray [id number] N/A History of Encounters Visit Date Visit Type Provider 03/28/2017 Office visit Melecio Jaja DO 03/11/2017 [...] 05/14/2012 Office visit Gorge Yo MD 05/12/2012 [facility] DO 05/11/2012 [facility] DO 03/13/2012 Office visit Gorge [...]
--- OUTSIDE RECORDS SUMMARY | 2018-01-22 14:04 | XMS REPORT ---
Author Author Melecio Wilkinson [facility] Address [address] [place] [phone] Care Team Providers Care Office Agent Name Role Phone Melecio Wilkinson PCP Unavailable [...] 1 tablet every 12 hours for cough oxycodone 20 mg oral tablet 08/05/2015 09/04/2015 take 1 tablet by oral route every 4 to 6 hours for 30 days pain prednisone 20 mg oral tablet 08/08/2015 take 2 tablets (40 mg) by oral route daily for 4 days 1 tablet (20 mg) daily for 4 days then 0.5 tablet (10 mg ) daily for 4 days Name Start Date Expiration Date SIG [...] for 30 days Discontinued by Hospitalist at [place] Augmentin 875-125 mg oral tablet 11/07/2010 03/05/2011 [...] HC BMI BSA BMI Percentile O2 Sat(%) 08/08/2015 9:13:00 AM 140 mmHg 76 mmHg [...] Reviewed 06/19/2011 12:00 AM Kenalog 40 Mg Im-Nd#9610-1429-92 Reviewed 11/03/2009 12:00 AM PROTHROMBIN TIME Reviewed 07/26/2011 12:00 AM X-RAY EXAM OF ABDOMEN Reviewed 10/12/2011 12:00 AM EXTREMITY STUDY Reviewed 01/01/2012 12:00 AM Rocephin 1 gm [facility]#[address]-14 Reviewed 01/16/2012 12:00 AM DRAIN/INJ JOINT/BURSA W/O US Reviewed 01/16/2012 12:00 AM Kenalog per 10Mg Im-[facility]#[address]-89(Srinath) Reviewed 02/05/2012 12:[address] ABDOMEN W/O & W/DYE Reviewed 02/05/2012 12:[address] PELVIS W/O & W/DYE Reviewed 05/29/2012 12:00 AM DRAIN/INJ JOINT/BURSA W/O US Reviewed 05/29/2012 12:00 AM SYNVISC, Per 1 Mg (2ml) [facility] [address]-93 Reviewed 06/05/2012 12:00 AM DRAIN/INJ JOINT/BURSA W/O US Reviewed 06/05/2012 12:00 AM SYNVISC, Per 1 Mg (2ml) [facility] [address]-85 Reviewed 06/12/2012 12:00 AM DRAIN/INJ JOINT/BURSA W/O US Reviewed 06/12/2012 12:00 AM SYNVISC, Per 1 Mg (2ml) [facility] [address]-25 Reviewed 07/16/2012 12:00 AM Hepatobiliary ductal system imaging with functional assessment Reviewed 07/16/2012 12:00 AM Decadron 8 mg [facility]#[id number] Reviewed 07/16/2012 12:00 AM Depo-Medrol 80mg [facility]#46909516983 Reviewed 07/16/2012 12:00 AM COMPREHEN METABOLIC PANEL Reviewed 07/16/2012 12:00 AM LIPID PANEL Reviewed 07/16/2012 12:00 AM Flu Injection 3 Years And Above [facility]# [address]-07 RHC Reviewed 08/19/2012 12:00 AM METABOLIC PANEL TOTAL CA Reviewed 12/21/2009 12:[address] ABDOMEN W/O & W/DYE Reviewed 10/02/2012 12:00 AM CHEST X-RAY 2VW FRONTAL&LATL Reviewed 10/09/2012 12:00 AM Decadron 8 mg [facility]#[id number] Reviewed 10/09/2012 12:00 AM Depo-Medrol 80mg [facility]#67834953790 Reviewed 12/09/2012 12:00 AM CHEST X-RAY 2VW [...] 1 Mg (6ml) [facility] [address]-76 Reviewed 02/26/2013 12:[address] NECK SPINE W/O & W/DYE Reviewed 04/07/2013 12:00 AM INJECT TRIGGER POINTS 3/> Reviewed 04/07/2013 12:00 AM Kenalog per 10Mg [facility]#[address]-99(Srinath) Reviewed 07/21/2013 12:00 AM CHEST X-RAY 2VW FRONTAL&LATL Reviewed 07/21/2013 12:00 AM Decadron 8 mg [facility]# [address]-42 Reviewed 07/21/2013 12:00 AM Depo-Medrol 80 mg [facility]#[address]-80 Reviewed 07/21/2013 12:00 AM Rocephin 500 mg [facility]#9855-7605-95 Reviewed 09/22/2013 12:00 AM CHEST X-RAY 2VW FRONTAL&LATL Returned 10/29/2013 12:00 AM X-RAY EXAM OF ABDOMEN Reviewed 12/08/2013 12:00 AM THER/PROPH/DIAG INJ SC/IM Reviewed 12/08/2013 12:00 AM Decadron, Per 1 Mg [facility]# [address]-00 Reviewed 12/08/2013 12:00 AM Depo-Medrol, Per 80 Mg [facility]#0048-2719-13 Reviewed 12/08/2013 12:00 AM CHEST X-RAY 2VW [...] Decadron 8 mg [facility]# [address]-71 Reviewed 01/05/2014 12:00 AM Depo-Medrol 80 mg [facility]#[address]-21 Reviewed 01/05/2014 12:00 AM Rocephin 1 gram [facility]#7520-3411-09 Reviewed 03/15/2010 12:00 AM PROTHROMBIN TIME Reviewed [...] Kenalog per 10Mg Im-[facility]#[address]-90(Srinath) Reviewed 05/05/2014 12:00 AM DRAIN/INJ JOINT/BURSA W/O US Reviewed 05/05/2014 12:00 AM SYNVISC-ONE, Per 1 Mg (6ml) [facility] [address]-86 Reviewed 05/06/2014 12:00 AM COMPREHEN METABOLIC PANEL [...] AM Rocephin 500 mg [facility]#[address]-19 Reviewed 07/14/2014 12:00 AM Fluzone MEDICARE Only Reviewed 11/29/2010 12:00 AM INJECT TRIGGER POINTS 3/> Reviewed 11/29/2010 12:00 AM Kenalog per 10Mg Im-[facility]#[address]-69(Srinath) Reviewed 07/14/2014 12:00 AM Decadron injection Reviewed [...] 9:02AM Lumbar spondylosis Aug 05 2015 9:02AM Lumbar degenerative disc disease Aug 05 2015 9:02AM Lumbar Radiculitis Aug 05 2015 9:02AM Muscle Spasm Aug 05 2015 9:02AM Chronic Pain in joint; Knee,right Aug 05 2015 9:02AM Cervical radiculopathy Aug 05 2015 9:02AM Cervical spondylosis without myelopathy Aug 05 2015 9:02AM Pain in joint; shoulder region, Left Aug 05 2015 9:02AM Payers Insurance Name Company Name Plan Name Plan Number Policy Number Policy Group Number Start Date Medicare Part A Medicare Part A [id number] N/A [employer] Medicare [employer] Ins [id number] N/A [place] Medical Assistance [place] Medical Assistance Prog [id number] N/A Medicare Part B Medicare Of [place] [id number] Friday, 2008 History of Encounters Visit Date Visit Type Provider 08/08/2015 Office visit Melecio Wilkinson DO 08/05/2015 [...] visit Katty CRAIG 02/28/2015 Office visit Melecio [place] DO 02/17/2015 Office visit Melecio Jaja DO [...] MD 12/02/2014 Hospital Magi Powers MD 11/29/2014 [facility] Wilkinson DO 09/22/2013 Office [address]is Navarrete [address] BUILDER 07/28/2013 Office visit Katty CRAIG 07/21/2013 Office visit Melecio Wilkinson DO 07/08/2013 Office visit Katty CRAIG 05/06/2013 Office visit Melecio Wilkinson DO 04/07/2013 Office visit Gorge Yo MD 02/26/2013 Office visit Melecio Wilkinson DO 01/29/2013 Office visit Gorge Yo MD 01/06/2013 Office visit Gorge Yo MD 12/09/2012 [facility] Ama Barrios MD 12/09/2012 Office visit Stephanie Richardson [address] BUILDER 11/26/2012 Office visit Gorge Yo MD 10/30/2012 [...] MD 05/12/2012 [facility] DO 05/11/2012 [facility] DO 03/13/2012 Office visit Gorge Yo MD 02/05/2012 Office visit Melecio Wilkinson DO 01/31/2012 Office visit Gorge Yo MD 01/16/2012 Office visit Gorge Yo MD 01/01/2012 Office visit Melecio Wilkinson DO 11/16/2011 Office visit Gorge Yo MD 10/05/2011 Office visit Gorge Yo MD 10/01/2011 Office visit Janis Navarrete [address] BU[employer]DER 09/06/2011 Office visit Gorge Yo MD 07/26/2011 [...] 04/06/2010 Office visit Gorge Yo MD 04/02/2010 [facility] Alfonso Camacho MD 03/31/2010 Laboratory Alfonso Camacho MD 03/31/2010 Laboratory Alfonso Camcaho MD 03/31/2010 Hospital Alfonso Camacho MD 03/21/2010 [...] Vamshi Aguero MD 06/27/2009 Office visit Gorge oY MD 06/17/2009 Office visit Vamshi Aguero MD 05/24/2009 Office visit Gorge Yo MD
--- OUTSIDE RECORDS SUMMARY | 2018-01-22 14:10 | XMS REPORT ---
Author Author Melecio Wilkinson [facility] Address [address] [place] [phone] Care Team Providers Care Neurological Surgeon Name Role Phone Melecio Wilkinson PCP Unavailable [...] for 30 days Discontinued by Hospitalist at [place] niacin 500 mg oral tablet 10/10/2016 take [...] route every 12 hours for 30 days Magness guerita Amitiza 24 mcg oral capsule 05/03/2016 [...] HC BMI BSA BMI Percentile O2 Sat(%) 11/05/2016 10:23:00 AM 118 mmHg 66 mmHg [...] 07/11/2015 12:00 AM Kenalog, Per 10 Mg [facility]#8383-7007-40 Reviewed 06/19/2011 12:00 AM DRAIN/INJ JOINT/BURSA W/O US Reviewed 06/19/2011 12:00 AM Kenalog 40 Mg [facility]#2727-1658-78 Reviewed 08/25/2015 12:00 AM OFFICE/OUTPATIENT VISIT EST Reviewed 08/23/2015 12:00 AM Decadron, Per 1 Mg [facility]# [address]-78 Reviewed 08/23/2015 12:00 AM Depo-Medrol, Per 80 Mg [facility]#[address]-56 Reviewed 09/07/2015 12:00 AM X-RAY EXAM L-S [...] 08/08/2016 12:00 AM Decadron, Per 1 Mg [facility]# [address]-52 Reviewed 08/08/2016 12:00 AM Depo-Medrol, Per 80 Mg [facility]#[address]-31 Reviewed 01/01/2012 12:00 AM Rocephin 1 gm [facility]#[address]-74 Reviewed 01/16/2012 12:00 AM DRAIN/INJ JOINT/BURSA W/O US Reviewed 01/16/2012 12:00 AM Kenalog per 10Mg Im-[facility]#[address]-04(Srinath) Reviewed 09/26/2016 12:00 AM CHEST X-RAY 2VW FRONTAL&LATL Reviewed 10/23/2016 12:00 AM INJECT SPINE LUMBAR/SACRAL Reviewed 02/05/2012 12:[address] ABDOMEN W/O & W/DYE Reviewed 02/05/2012 12:[address] PELVIS W/O & W/DYE Reviewed 11/01/2016 12:00 AM URNLS DIP STICK/TABLET RGNT AUTO W/O MICROSCOPY Reviewed 05/29/2012 12:00 AM DRAIN/INJ JOINT/BURSA W/O US Reviewed 05/29/2012 12:00 AM SYNVISC, Per 1 Mg (2ml) [facility] [address]-70 Reviewed 06/05/2012 12:00 AM DRAIN/INJ JOINT/BURSA W/O US Reviewed 06/05/2012 12:00 AM SYNVISC, Per 1 Mg (2ml) [facility] [address]-53 Reviewed 06/12/2012 12:00 AM DRAIN/INJ JOINT/BURSA W/O US Reviewed 06/12/2012 12:00 AM SYNVISC, Per 1 Mg (2ml) [facility] [address]-69 Reviewed 07/16/2012 12:00 AM Hepatobiliary ductal system imaging with functional assessment Reviewed 07/16/2012 12:00 AM Decadron 8 mg [facility]#67647811499 Reviewed 07/16/2012 12:00 AM Depo-Medrol 80mg [facility]#11984488587 Reviewed 07/16/2012 12:00 AM COMPREHEN METABOLIC PANEL Reviewed 07/16/2012 12:00 AM LIPID PANEL Reviewed 07/16/2012 12:00 AM Flu Injection 3 Years And Above [facility]# [address]-72 RHC Reviewed 08/19/2012 12:00 AM METABOLIC PANEL TOTAL CA Reviewed 12/21/2009 12:[address] ABDOMEN W/O & W/DYE Reviewed 10/02/2012 12:00 AM CHEST X-RAY 2VW FRONTAL&LATL Reviewed 10/09/2012 12:00 AM Decadron 8 mg [facility]#56339209721 Reviewed 10/09/2012 12:00 AM Depo-Medrol 80mg [facility]#98754244745 Reviewed 12/09/2012 12:00 AM CHEST X-RAY 2VW [...] 12:00 AM SYNVISC-ONE, Per 1 Mg (6ml) [facility] [address]-02 Reviewed 02/26/2013 12:[address] NECK SPINE W/O & W/DYE Reviewed 04/07/2013 12:00 AM INJECT TRIGGER POINTS 3/> Reviewed 04/07/2013 12:00 AM Kenalog per 10Mg [facility]#[address]-58(Srinath) Reviewed 07/21/2013 12:00 AM CHEST X-RAY 2VW FRONTAL&LATL Reviewed 07/21/2013 12:00 AM Decadron 8 mg [facility]# [address]-62 Reviewed 07/21/2013 12:00 AM Depo-Medrol 80 mg [facility]#[address]-11 Reviewed 07/21/2013 12:00 AM Rocephin 500 mg [facility]#0272-7723-63 Reviewed 09/22/2013 12:00 AM CHEST X-RAY 2VW FRONTAL&LATL Reviewed 10/29/2013 12:00 AM X-RAY EXAM OF ABDOMEN Reviewed 12/08/2013 12:00 AM THER/PROPH/DIAG INJ SC/IM Reviewed 12/08/2013 12:00 AM Decadron, Per 1 Mg [facility]# [address]-36 Reviewed 12/08/2013 12:00 AM Depo-Medrol, Per 80 Mg [facility]#5558-3816-06 Reviewed 12/08/2013 12:00 AM CHEST X-RAY 2VW [...] Reviewed 01/05/2014 12:00 AM Decadron 8 mg [facility]# [address]-08 Reviewed 01/05/2014 12:00 AM Depo-Medrol 80 mg [facility]#[address]-25 Reviewed 01/05/2014 12:00 AM Rocephin 1 gram [facility]#9340-4824-59 Reviewed 03/15/2010 12:00 AM PROTHROMBIN TIME Reviewed [...] Reviewed 09/28/2010 12:00 AM Kenalog per 10Mg [facility]#[address]-59(Srinath) Reviewed 05/05/2014 12:00 AM DRAIN/INJ JOINT/BURSA W/O US Reviewed 05/05/2014 12:00 AM SYNVISC-ONE, Per 1 Mg (6ml) [facility] [address]-85 Reviewed 05/06/2014 12:00 AM COMPREHEN METABOLIC PANEL [...] Reviewed 11/07/2010 12:00 AM Rocephin 500 mg [facility]#[address]-37 Reviewed 07/14/2014 12:00 AM Fluzone MEDICARE Only Reviewed 11/29/2010 12:00 AM INJECT TRIGGER POINTS 3/> Reviewed 11/29/2010 12:00 AM Kenalog per 10Mg [facility]#[address]-51(Srinath) Reviewed 07/14/2014 12:00 AM Decadron injection Reviewed [...] LEUK SCREEN NEGATIVE MICRO INDICATED? NOT INDICATED History Of Immunizations Name Date Admin Mfg Name Mfg Code Trade Name Lot# Route Inj Vis Given Vis Pub CVX Pneumococcal 07/09/2016 Emily WAL Prevnar 13 [id number] Intramuscular Right Deltoid 07/09/2016 07/28/2015 133 History [...] 2016 10:24AM Lumbago Nov 05 2016 10:24AM Payers Insurance Name Company Name Plan Name Plan Number Policy Number Policy Group Number Start Date Medicare RHC Medicare RHC [id number] N/[place] [employer] [place] [employer] [place] [id number] N/A [employer] Medicare [employer] Ins [phone] N/A [place] Medical Assistance [facility] Medical Assistance Prog [id number] N/A Medicare Part B Medicare Of [place] [id number] Friday, February 22, 2008 Medicare Part A Medicare Part A [id number] N/A [facility] - RHC - Community Plan [facility] RHC Comm [id number] Wednesday, September 23, 2015 [employer] - [place]HC - [place] [employer] - [place] [id number] Wednesday, September 23, 2015 Medicare Part A Medicare - Lab/Xray [id number] N/A History of Encounters Visit Date Visit Type Provider 11/05/2016 Office visit Melecio Wilkinson DO 10/23/2016 Office visit Melecio Wilkinson DO 10/10/2016 Office visit Melecio Wilkinson DO 09/26/2016 Office visit Melecio Wilkinson DO 08/28/2016 Office visit Melecio Jaja DO 08/08/2016 Office visit Melecio Wilkinson DO [...] 05/14/2012 Office visit Gorge Yo MD 05/12/2012 [facility] DO 05/11/2012 [facility] DO 03/13/2012 Office visit Gorge [...] visit Melecio Wilkinson DO 06/19/2011 Office visit oGrge Yo MD 06/06/2011 Office visit Gorge Yo [...]
--- OUTSIDE RECORDS SUMMARY | 2018-01-22 14:13 | XMS REPORT ---
Author Author Melecio Wilkinson [facility] Address [address] [place] [phone] Care Team Providers Care Sandwich Artist Name Role Phone Melecio Wilkinson PCP Unavailable [...] BY MOUTH EVERY DAY - GEN CLARITIN- gabapentin oral tablet 800 mg 11/11/2014 05/10/2015 take 1 tablet by oral route 3 times a day for 30 days metformin oral tablet 500 mg 11/15/2014 TAKE [...] times a day for 30 days oxycodone oral tablet 15 mg 01/19/2015 02/18/2015 take 1 tablet by oral route every 4 to 6 hours as needed for 30 days pain diphenhydramine HCl oral capsule 50 mg 01/21/2015 TAKE 1 CAPSULE BY MOUTH EVERY SIX HOURS NEEDED methocarbamol oral tablet 500 mg 01/24/2015 06/23/2015 take 1 tablet (500 mg) by oral route 4 times a day for 30 days methocarbamol oral tablet 500 mg 01/24/2015 TAKE ONE TABLET BY MOUTH FOUR TIMES A DAY Name Start Date Expiration Date SIG Comments [...] for 30 days Discontinued by Hospitalist at [place] Augmentin Oral Tablet 875-125 mg 11/07/2010 03/05/2011 [...] HC BMI BSA BMI Percentile O2 Sat(%) 01/19/2015 3:51:00 PM 128 mmHg 84 mmHg [...] 2010 3:21PM Pain in joint; Knee,right George 2010 11:15AM Pain in joint; Knee,right Jun 06 [...] Type II b 2013 9:08AM Gastroenteritis, Noninfectious Oct 6 2013 9:08AM Lumbar spondylosis Nov 25 [...] 3:54PM Cervical radiculopathy Jan 19 2015 3:54PM Payers Insurance Name Company Name Plan Name Plan Number Policy Number Policy Group Number Start Date Medicare Part A Medicare Part A [id number] N/A [facility] Medicare [facility] Ins [phone] N/A [place] Medical Assistance [facility] Medical Assistance Prog [id number] N/A Medicare Part B Medicare Of [place] [id number] Friday, 2008 History of Encounters Visit Date Visit Type Provider 01/19/2015 Office visit Katty CRAIG 01/13/2015 Office visit Melecio Wilkinson DO 01/12/2015 Office visit Katty CRAIG 12/16/2014 [facility] Alfa Platt MD 12/14/2014 Voided Melecio Wilkinson DO 12/08/2014 Office visit Melecio Wilkinson DO 12/08/2014 Office visit Alfa Platt MD 12/07/2014 Nurse visit Riri Salazar MD 12/02/2014 [facility] Alfa Platt MD 12/02/2014 [facility] Magi Powers MD 11/29/2014 Voided Katty CRAIG 11/29/2014 [facility] aMgi Powers MD 11/11/2014 Office visit Melecio Wilkinson DO 11/11/2014 Office visit Katty CRAIG 10/14/2014 Office visit Katty CRAIG 09/14/2014 Office visit Katty CRAIG 09/08/2014 [facility] Ama Barrios MD 09/07/2014 Office visit [...] Melecio Wilkinson DO 12/23/2013 Office visit Katty [place] DRINK MIXER 12/18/2013 Office visit Janis Navarrete SOLDERING MACHINE FEEDER 12/08/2013 Office visit Janis Navarrete SOLDERING MACHINE FEEDER 11/25/2013 Office visit Katty [place] DRINK MIXER 10/29/2013 Office visit Melecio Jaja DO 09/22/2013 Office visit Janis Navarrete SOLDERING MACHINE FEEDER 07/28/2013 Office visit Katty [place] DRINK MIXER 07/21/2013 Office visit Melecio Wilkinson DO 07/08/2013 Office visit Katty [place] DRINK MIXER 05/06/2013 Office visit Melecio Wilkinson DO 04/07/2013 Office visit Gorge Yo MD 02/26/2013 Office visit Melecio Wilkinson DO 01/29/2013 Office visit Gorge Yo MD 01/06/2013 Office visit Gorge Yo MD 12/09/2012 Office visit Stephanie Richardson SOLDERING MACHINE FEEDER 12/09/2012 [facility] Ama Barrios MD 11/26/2012 Office visit Gorge Yo MD 10/30/2012 [facility] Gorge Yo MD 10/29/2012 Office visit [...] 05/14/2012 Office visit Gorge Yo MD 05/12/2012 [facility] DO 05/11/2012 [facility] DO 03/13/2012 Office visit Gorge Yo MD 02/05/2012 Office visit Melecio Wilkinson DO 01/31/2012 Office visit Gorge Yo MD 01/16/2012 Office visit Gorge Yo MD 01/01/2012 Office visit Melecio Wilkinson DO 11/16/2011 Office visit Gorge Yo MD 10/05/2011 Office visit Gorge Yo MD 10/01/2011 Office visit Janis Navarrete SOLDERING MACHINE FEEDER 09/06/2011 Office visit Gorge Yo MD 07/26/2011 Office visit Melecio Wilkinson DO 06/19/2011 Office visit Gorge Yo MD 06/06/2011 Office visit Gorge Yo MD 03/22/2011 Office visit Gorge Yo MD 03/05/2011 Office visit Melecio Wilkinson DO 02/06/2011 [facility] Gorge Yo MD 01/08/2011 Office visit Melecio Wilkinson DO 12/27/2010 Office visit Gorge Yo MD 11/29/2010 Office visit Gorge Yo MD 11/07/2010 Office visit Melecio Wilkinson DO 09/28/2010 Office visit Gorge Yo MD 09/05/2010 [facility] Gorge Yo MD 08/28/2010 Office visit Gorge Yo MD 08/07/2010 Office visit Janis Navarrete SOLDERING MACHINE FEEDER 07/25/2010 Office visit Melecio Wilkinson DO 06/27/2010 Office visit Gorge Yo MD 06/14/2010 Office visit Melecio Wilkinson DO 06/06/2010 Laboratory Alfonso Camacho MD 06/01/2010 Office visit Melecio Wilkinson DO 04/17/2010 Office visit Melecio Wilkinson DO 04/06/2010 Office visit Gorge Yo MD 04/02/2010 [facility] Alfonso Camacho MD 03/31/2010 Laboratory Alfonso Camacho MD 03/31/2010 Laboratory Alfonso Camacho MD 03/31/2010 [facility] Alfonso Camacho MD 03/21/2010 Procedures Gorge [...]
--- OUTSIDE RECORDS SUMMARY | 2018-01-22 14:18 | XMS REPORT ---
Author Author Melecio Wilkinson [facility] Address [address] [place] [phone] Care Team Providers Care Mosaicist Name Role Phone Melecio Wilkinson PCP Unavailable [...] 30 days oxycodone 20 mg oral tablet 01/19/2016 02/18/2016 take 1 tablet by oral route every 4 to 6 hours for 30 days pain MS Contin 60 mg oral tablet extended release 01/20/2016 02/19/2016 take 1 tablet by oral route every 12 hours for 30 days Name Start Date [...] days changed to Jimmielreto by Dr. Yesenia Landersoderm 5 % topical [...] for 30 days Discontinued by Hospitalist at [place] Augmentin 875-125 mg oral tablet 11/07/2010 03/05/2011 [...] JOINT/BURSA W/O US Reviewed 07/11/2015 12:00 AM Isabela Per 10 Mg FORMERLY NAMED [facility]#6992-4734-85 Reviewed 06/19/2011 12:00 AM DRAIN/INJ JOINT/BURSA W/O US Reviewed 06/19/2011 12:00 AM Kenalog 40 Mg [facility]#4359-9179-66 Reviewed 08/25/2015 12:00 AM OFFICE/OUTPATIENT VISIT EST Reviewed 08/23/2015 12:00 AM Decadron, Per 1 Mg FORMERLY NAMED [facility]# [address]-98 Reviewed 08/23/2015 12:00 AM Depo-Medrol, Per 80 Mg FORMERLY NAMED [facility]#[address]-06 Reviewed 09/07/2015 12:00 AM X-RAY EXAM L-S [...] NAMED [facility]#[address]-54 Reviewed 01/16/2012 12:00 AM DRAIN/INJ JOINT/BURSA W/O US Reviewed 01/16/2012 12:00 AM Kenalog per 10Mg [facility]#[address]-83(Srinath) Reviewed 02/05/2012 12:[address] ABDOMEN W/O & W/DYE Reviewed 02/05/2012 12:[address] PELVIS W/O & W/DYE Reviewed 05/29/2012 12:00 AM DRAIN/INJ JOINT/BURSA W/O US Reviewed 05/29/2012 12:00 AM SYNVISC, Per 1 Mg (2ml) FORMERLY NAMED [facility] [address]-21 Reviewed 06/05/2012 12:00 AM DRAIN/INJ JOINT/BURSA W/O US Reviewed 06/05/2012 12:00 AM SYNVISC, Per 1 Mg (2ml) FORMERLY NAMED [facility] [address]-82 Reviewed 06/12/2012 12:00 AM DRAIN/INJ JOINT/BURSA W/O US Reviewed 06/12/2012 12:00 AM SYNVISC, Per 1 Mg (2ml) FORMERLY NAMED [facility] [address]-90 Reviewed 07/16/2012 12:00 AM Hepatobiliary ductal system imaging with functional assessment Reviewed 07/16/2012 12:00 AM Decadron 8 mg FORMERLY NAMED [facility]#[id number] Reviewed 07/16/2012 12:00 AM Depo-Medrol 80mg FORMERLY NAMED [facility]#[id number] Reviewed 07/16/2012 12:00 AM COMPREHEN METABOLIC PANEL Reviewed 07/16/2012 12:00 AM LIPID PANEL Reviewed 07/16/2012 12:00 AM Flu Injection 3 Years And Above FORMERLY NAMED [facility]# [address]-14 RHC Reviewed 08/19/2012 12:00 AM METABOLIC PANEL TOTAL CA Reviewed 12/21/2009 12:[address] ABDOMEN W/O & W/DYE Reviewed 10/02/2012 12:00 AM CHEST X-RAY 2VW FRONTAL&LATL Reviewed 10/09/2012 12:00 AM Decadron 8 mg FORMERLY NAMED [facility]#[id number] Reviewed 10/09/2012 12:00 AM Depo-Medrol 80mg FORMERLY NAMED [facility]#[id number] Reviewed 12/09/2012 12:00 AM CHEST X-RAY 2VW [...] [facility] [address]-90 Reviewed 02/26/2013 12:[address] NECK SPINE W/O & W/DYE Reviewed 04/07/2013 12:00 AM INJECT TRIGGER POINTS 3/> Reviewed 04/07/2013 12:00 AM Kenalog per 10Mg Im-Nd#[address]-95(Srinath) Reviewed 07/21/2013 12:00 AM CHEST X-RAY 2VW FRONTAL&LATL Reviewed 07/21/2013 12:00 AM Decadron 8 mg NDC# [address]-49 Reviewed 07/21/2013 12:00 AM Depo-Medrol 80 mg NDC#[address]-69 Reviewed 07/21/2013 12:00 AM Rocephin 500 mg ND#9469-3438-72 Reviewed 09/22/2013 12:00 AM CHEST X-RAY 2VW FRONTAL&LATL Returned 10/29/2013 12:00 AM X-RAY EXAM OF ABDOMEN Reviewed 12/08/2013 12:00 AM THER/PROPH/DIAG INJ SC/IM Reviewed 12/08/2013 12:00 AM Decadron, Per 1 Mg ND# [address]-28 Reviewed 12/08/2013 12:00 AM Depo-Medrol, Per 80 Mg ND#5437-6190-78 Reviewed 12/08/2013 12:00 AM CHEST X-RAY 2VW [...] 01/05/2014 12:00 AM Decadron 8 mg ND# [address]-00 Reviewed 01/05/2014 12:00 AM Depo-Medrol 80 mg NDC#[address]-96 Reviewed 01/05/2014 12:00 AM Rocephin 1 gram ND#9848-0135-66 Reviewed 03/15/2010 12:00 AM PROTHROMBIN TIME Reviewed [...] Reviewed 09/28/2010 12:00 AM Kenalog per 10Mg [facility]#[address]-54(Srinath) Reviewed 05/05/2014 12:00 AM DRAIN/INJ JOINT/BURSA W/O US Reviewed 05/05/2014 12:00 AM SYNVISC-ONE, Per 1 Mg (6ml) FORMERLY NAMED [facility] [address]-72 Reviewed 05/06/2014 12:00 AM COMPREHEN METABOLIC PANEL [...] NAMED [facility]#[address]-13 Reviewed 07/14/2014 12:00 AM Fluzone MEDICARE Only Reviewed 11/29/2010 12:00 AM INJECT TRIGGER POINTS 3/> Reviewed 11/29/2010 12:00 AM Kenalog per 10Mg [facility]#[address]-75(Srinath) Reviewed 07/14/2014 12:00 AM Decadron injection Reviewed [...] g/dLTOTAL BILI 0.40 mg/dLCALCIUM 9.0 mg/dLeGFR 48 History [...] 05 2012 9:44AM Osteoarthritis, knee Sep 20 2011 9:54AM [...] II Oct 29 2013 9:08AM Gastroenteritis, Noninfectious Feb 6 2013 [...] Start Date Medicare Part A Medicare RHC [id number] N/A [employer] - RHC - [place] State Plan [employer] - RHC [place] State Plan [id number] Wednesday, 2015 Medicare Part A Medicare - Lab/Xray [id number] N/A [employer] Medicare [employer] Ins [id number] N/A [place] Medical Assistance [facility] Medical Assistance Prog [id number] N/A Medicare Part B Medicare Of [place] [id number] Friday, February 22, 2008 Medicare Part A Medicare Part A [id number] N/A [facility] - [facility] - [facility] Plan [facility] Comm [id number] Wednesday, September 23, 2015 History of Encounters [...] visit Katty CRAIG 01/13/2015 Office visit Melecio Willlisbeth ANDJUAR 01/12/2015 Office visit Katty CRAIG 12/16/2014 [facility] Alfa Platt MD 12/14/2014 Voided Melecio Jaja DO 12/08/2014 Office visit Alfa Platt MD 12/08/2014 Office visit Melecio Jaja DO 12/07/2014 Nurse visit Riri Salazar MD 12/02/2014 [facility] Alfa Platt MD 12/02/2014 [facility] Magi Powers MD 11/29/2014 [facility] [...] Katty CRAIG 04/26/2014 Office visit Katty Jefferson NUISANCE WILDLIFE CONTROL OPERATOR 03/24/2014 Office visit Katty Jefferson NUISANCE WILDLIFE CONTROL OPERATOR 02/24/2014 Office visit Katty Jefferson NUISANCE WILDLIFE CONTROL OPERATOR 01/05/2014 Office visit Melecio Wilkinson DO 12/23/2013 Office visit aKtty Palma Ronny NUISANCE WILDLIFE CONTROL OPERATOR 12/23/2013 Office visit Melecio Wilkinson DO 12/18/2013 Office visit Janis Navarrete TRASH COLLECTOR TRUCK DRIVER 12/08/2013 Office visit Janis Navarrete TRASH COLLECTOR TRUCK DRIVER 11/25/2013 Office visit Katty MisaelNeville Jefferson NUISANCE WILDLIFE CONTROL OPERATOR 10/29/2013 Office visit Melecio Wilkinson DO 09/22/2013 Office visit Janis Navarrete TRASH COLLECTOR TRUCK DRIVER 07/28/2013 Office visit Katty Jefferson NUISANCE WILDLIFE CONTROL OPERATOR 07/21/2013 Office visit Melecio Wilkinson DO 07/08/2013 Office visit Katty Jefferson NUISANCE WILDLIFE CONTROL OPERATOR 05/06/2013 Office visit Melecio Wilkinson DO 04/07/2013 Office visit Gorge Yo MD 02/26/2013 Office visit Melecio Wilkinson DO 01/29/2013 Office visit Gorge Yo MD 01/06/2013 Office visit Gorge Yo MD 12/09/2012 [facility] Ama Barrios MD 12/09/2012 Office visit Stephanienereida Richardson TRASH COLLECTOR TRUCK DRIVER 11/26/2012 Office visit Gorge Yo MD 10/30/2012 [...] Office visit Gorge Yo MD 05/12/2012 [facility] DO 05/11/2012 [facility] DO 03/13/2012 Office visit Gorge Yo MD 02/05/2012 Office visit Melecio Wilkinson DO 01/31/2012 Office visit Gorge Yo MD 01/16/2012 Office visit Gorge Yo MD 01/01/2012 Office visit Melecio Wilkinson DO 11/16/2011 Office visit Gorge Yo MD 10/05/2011 Office visit Gorge Yo MD 10/01/2011 Office visit Janis Navarrete TRASH COLLECTOR TRUCK DRIVER 09/06/2011 Office visit Gorge Yo MD 07/26/2011 [...] Yo MD 09/05/2010 [facility] Gorge Yo MD 08/28/2010 Office visit [...]
--- OUTSIDE RECORDS SUMMARY | 2018-01-22 14:23 | XMS REPORT ---
Author Author Melecio Wilkinson [facility] Address [address] [place], [place] [phone] Care Team Providers Care Caretaker Resort Name Role Phone Melecio Wilkinson PCP Unavailable Melecio Wilkinson PreferredProvider Unavailable Allergies and Adverse Reactions Name Reaction Notes NO KNOWN DRUG ALLERGIES Plan of Treatment Planned Activity Comments Planned Date Planned Time Plan/Goal CT ABD AND PELVIS W/WO CONTRAST 06/06/2017 12:00 AM BMP (basic metabolic panel) 06/20/2017 12:00 AM [...] for 30 days Discontinued by Hospitalist at [place] niacin 500 mg oral tablet 10/10/2016 take [...] Kenalog, Per 10 Mg [facility]#2408-4012-22 Reviewed 12/07/2014 12:00 AM OFFICE/OUTPATIENT VISIT EST Reviewed 06/19/2011 12:00 AM DRAIN/INJ JOINT/BURSA W/O US Reviewed 06/19/2011 12:00 AM Kenalog 40 Mg Im-Nd#9140-4103-37 Reviewed 08/25/2015 12:00 AM OFFICE/OUTPATIENT VISIT EST Reviewed 08/23/2015 12:00 AM Decadron, Per 1 Mg [facility]# [address]-17 Reviewed 08/23/2015 12:00 AM Depo-Medrol, Per 80 Mg [facility]#[address]-43 Reviewed 09/07/2015 12:00 AM X-RAY EXAM L-S [...] Decadron, Per 1 Mg [facility]# [address]-16 Reviewed 10/23/2015 12:00 AM Depo-Medrol, Per 80 Mg [facility]#[address]-76 Reviewed 07/26/2011 12:00 AM X-RAY EXAM OF ABDOMEN Reviewed 11/21/2015 12:00 AM Orthopedics Consultation Reviewed 11/21/2015 12:00 AM Physical Therapy Consultation Reviewed 12/20/2015 12:00 AM EXTREMITY STUDY Reviewed 10/12/2011 12:00 AM EXTREMITY STUDY Reviewed 05/10/2016 12:00 AM CONTRAST X-RAY OF SHOULDER Reviewed 07/09/2016 12:00 AM PNEUMOCOCCAL VACC 13 RIP IM Reviewed 08/08/2016 12:00 AM Decadron, Per 1 Mg [facility]# [address]-04 Reviewed 08/08/2016 12:00 AM Depo-Medrol, Per 80 Mg [facility]#[address]-74 Reviewed 01/01/2012 12:00 AM AIRWAY INHALATION TREATMENT Reviewed 01/01/2012 12:00 AM Rocephin 1 gm [facility]#[address]-28 Reviewed 01/16/2012 12:00 AM DRAIN/INJ JOINT/BURSA W/O US Reviewed 01/16/2012 12:00 AM Kenalog per 10Mg [facility]#[address]-97(Srinath) Reviewed 09/26/2016 12:00 AM CHEST X-RAY 2VW [...] 1 Mg (2ml) [facility] [address]-47 Reviewed 06/05/2012 12:00 AM DRAIN/INJ JOINT/BURSA W/O US Reviewed 06/05/2012 12:00 AM SYNVISC, Per 1 Mg (2ml) [facility] [address]-61 Reviewed 06/12/2012 12:00 AM DRAIN/INJ JOINT/BURSA W/O US Reviewed 06/12/2012 12:00 AM SYNVISC, Per 1 Mg (2ml) [facility] [address]-23 Reviewed 06/06/2017 12:00 AM Decadron 4mg Injection Reviewed 06/06/2017 12:00 AM Depo-Medrol 40mg Injection Reviewed 07/16/2012 12:00 AM Hepatobiliary ductal system imaging with functional assessment Reviewed 07/16/2012 12:00 AM Decadron 8 mg [facility]#12871126515 Reviewed 07/16/2012 12:00 AM Depo-Medrol 80mg [facility]#00290316835 Reviewed 07/16/2012 12:00 AM COMPREHEN METABOLIC PANEL Reviewed 07/16/2012 12:00 AM LIPID PANEL Reviewed 07/16/2012 12:00 AM Flu Injection 3 Years And Above [facility]# [address]-93 RHC Reviewed 08/19/2012 12:00 AM METABOLIC PANEL TOTAL CA Reviewed 12/21/2009 12:[address] ABDOMEN W/O & W/DYE Reviewed 10/02/2012 12:00 AM CHEST X-RAY 2VW FRONTAL&LATL Reviewed 10/09/2012 12:00 AM Decadron 8 mg [facility]#11570545342 Reviewed 10/09/2012 12:00 AM Depo-Medrol 80mg [facility]#34758932385 Reviewed 12/09/2012 12:00 AM CHEST X-RAY 2VW [...] 1 Mg (6ml) [facility] [address]-22 Reviewed 02/26/2013 12:00 AM Physical Therapy Reviewed 02/26/2013 12:[address] NECK SPINE W/O & W/DYE Reviewed 04/07/2013 12:00 AM INJECT TRIGGER POINTS 3/> Reviewed 04/07/2013 12:00 AM Kenalog per 10Mg [facility]#[address]-25(Srinath) Reviewed 07/21/2013 12:00 AM CHEST X-RAY 2VW FRONTAL&LATL Reviewed 07/21/2013 12:00 AM Decadron 8 mg [facility]# [address]-87 Reviewed 07/21/2013 12:00 AM Depo-Medrol 80 mg [facility]#[address]-84 Reviewed 07/21/2013 12:00 AM Rocephin 500 mg [facility]#1809-7511-64 Reviewed 09/22/2013 12:00 AM CHEST X-RAY 2VW FRONTAL&LATL Reviewed 10/29/2013 12:00 AM X-RAY EXAM OF ABDOMEN Reviewed 12/08/2013 12:00 AM THER/PROPH/DIAG INJ SC/IM Reviewed 12/08/2013 12:00 AM Decadron, Per 1 Mg [facility]# [address]-97 Reviewed 12/08/2013 12:00 AM Depo-Medrol, Per 80 Mg [facility]#6428-8458-58 Reviewed 12/08/2013 12:00 AM CHEST X-RAY 2VW [...] AM Decadron 8 mg [facility]# [address]-21 Reviewed 01/05/2014 12:00 AM Depo-Medrol 80 mg [facility]#[address]-59 Reviewed 01/05/2014 12:00 AM Rocephin 1 gram [facility]#5452-5976-97 Reviewed 03/15/2010 12:00 AM PROTHROMBIN TIME Reviewed [...] 12:00 AM Kenalog per 10Mg [facility]#[address]-69(Srinath) Reviewed 05/05/2014 12:00 AM DRAIN/INJ JOINT/BURSA W/O US Reviewed 05/05/2014 12:00 AM SYNVISC-ONE, Per 1 Mg (6ml) [facility] [address]-95 Reviewed 05/06/2014 12:00 AM COMPREHEN METABOLIC PANEL [...] AM Rocephin 500 mg [facility]#[address]-92 Reviewed 07/14/2014 12:00 AM Fluzone MEDICARE Only Reviewed 11/29/2010 12:00 AM INJECT TRIGGER POINTS 3/> Reviewed 11/29/2010 12:00 AM Kenalog per 10Mg [facility]#[address]-50(Srinath) Reviewed 07/14/2014 12:00 AM Decadron injection Reviewed [...] CVX Pneumococcal 07/09/2016 [facility] Prevnar 13 [id number] Intramuscular Right Deltoid 07/09/2016 07/28/2015 133 History [...] Number Start Date Medicare RHC Medicare RHC [id number] N/A [employer] [place] State Plan [employer] [place] State Plan [id number] N/A [employer] [place] [employer] [place] [employer] [id number] N/A [place] Medical Assistance [facility] Medical Assistance Prog [id number] N/A Medicare Part B Medicare Of [place] [id number] Friday, 2008 Medicare Part A Medicare Part A [id number] N/A [facility] - RHC - [facility] Plan [facility] RHC Comm [id number] Wednesday, 2015 [employer] - RHC - [place] State Plan [employer] - RHC [place] State Plan [id number] Wednesday, 2015 Medicare Part A Medicare - Lab/Xray [id number] N/A History of Encounters Visit Date Visit Type Provider 06/06/2017 Office visit Melecio Wilkinson DO 04/03/2017 Office visit Melecio Wilkinson DO 03/28/2017 Office visit Melecio Wilkinson DO 03/11/2017 Office visit Melecio Wilkinson DO 03/05/2017 Hospital Ama Barrios MD 02/22/2017 Office visit Melecio Wilkinson DO 02/05/2017 Office visit Melecio Wilkinson DO 2017 [facility] Rasta Mckeon MD 2017 Hospital Ama Barrios MD 01/09/2017 Office visit Melecio Wilkinson DO 01/01/2017 [facility] Seth Devlin DO 12/31/2016 [facility] Rasta Mckeon MD 12/31/2016 [facility] Ama Barrios MD 12/21/2016 Office visit [...] MD 12/02/2014 Hospital Alfa Platt MD 12/02/2014 [facility] Powers [facility] Void[facility] Katty CRAIG 11/11/2014 [...] Janis Navarrete APRN 11/25/2013 Office visit Katty Jefferson KIARA 10/29/2013 Office visit Melecio Wilkinson DO 09/22/2013 Office visit Janis Navarrete RETORT CONDENSER ATTENDANT 07/28/2013 Office visit Kattyalton Jefferson KIARA 07/21/2013 Office visit Melecio Wilkinson [...]
--- OUTSIDE RECORDS SUMMARY | 2018-01-22 14:29 | XMS REPORT ---
Author Author Melecio Wilkinson [facility] Address [address] [place] [phone] Care Team Providers Care Propagation Worker Name Role Phone Melecio Wilkinson PCP Unavailable [...] oral route once daily in the evening Lyrica 75 mg oral capsule 12/21/2016 06/19/2017 take 1 capsule (75 mg) by oral route 2 times per day for 30 days oxycodone 20 mg oral tablet,oral only,ext.rel.12 hr 01/09/2017 02/08/2017 take 1 tablet (20 mg) by oral route every 8 hours for 30 days bumetanide 2 mg oral tablet take 1 tablet (2 mg) by oral route every other day for 10 days oxycodone 20 mg oral tablet 01/17/2017 02/16/2017 take 1 tablet by oral route q6h prn for 30 days May fill 01/18/17 allopurinol 100 mg oral tablet 01/24/2017 take 1 and 1/2 tablet (150 mg) by oral route once daily atorvastatin 40 mg oral tablet 01/24/2017 01/19/2018 [...] TAKE 1 TABLET BY MOUTH EVERY DAY Name Start Date Expiration Date SIG [...] for 30 days Discontinued by Hospitalist at [place] niacin 500 mg oral tablet 10/10/2016 take [...] 12:00 AM Kenalog, Per 10 Mg [facility]#6399-3987-65 Reviewed 12/07/2014 12:00 AM OFFICE/OUTPATIENT VISIT EST Reviewed 06/19/2011 12:00 AM DRAIN/INJ JOINT/BURSA W/O US Reviewed 06/19/2011 12:00 AM Kenalog 40 Mg [facility]#9799-3870-93 Reviewed 08/25/2015 12:00 AM OFFICE/OUTPATIENT VISIT EST Reviewed 08/23/2015 12:00 AM Decadron, Per 1 Mg [facility]# [address]-43 Reviewed 08/23/2015 12:00 AM Depo-Medrol, Per 80 Mg [facility]#[address]-78 Reviewed 09/07/2015 12:00 AM X-RAY EXAM L-S [...] 12:00 AM Decadron, Per 1 Mg [facility]# [address]-63 Reviewed 10/23/2015 12:00 AM Depo-Medrol, Per 80 Mg [facility]#[address]-14 Reviewed 07/26/2011 12:00 AM X-RAY EXAM OF ABDOMEN Reviewed 11/21/2015 12:00 AM Orthopedics Consultation Reviewed 11/21/2015 12:00 AM Physical Therapy Consultation Reviewed 12/20/2015 12:00 AM EXTREMITY STUDY Reviewed 10/12/2011 12:00 AM EXTREMITY STUDY Reviewed 05/10/2016 12:00 AM CONTRAST X-RAY OF SHOULDER Reviewed 07/09/2016 12:00 AM PNEUMOCOCCAL VACC 13 RIP IM Reviewed 08/08/2016 12:00 AM Decadron, Per 1 Mg [facility]# [address]-96 Reviewed 08/08/2016 12:00 AM Depo-Medrol, Per 80 Mg [facility]#[address]-87 Reviewed 01/01/2012 12:00 AM AIRWAY INHALATION TREATMENT Reviewed 01/01/2012 12:00 AM Rocephin 1 gm [facility]#[address]-70 Reviewed 01/16/2012 12:00 AM DRAIN/INJ JOINT/BURSA W/O US Reviewed 01/16/2012 12:00 AM Kenalog per 10Mg [facility]#[address]-41(Srinath) Reviewed 09/26/2016 12:00 AM CHEST X-RAY 2VW [...] AM SYNVISC, Per 1 Mg (2ml) [facility] [address]-46 Reviewed 06/05/2012 12:00 AM DRAIN/INJ JOINT/BURSA W/O US Reviewed 06/05/2012 12:00 AM SYNVISC, Per 1 Mg (2ml) [facility] [address]-17 Reviewed 06/12/2012 12:00 AM DRAIN/INJ JOINT/BURSA W/O US Reviewed 06/12/2012 12:00 AM SYNVISC, Per 1 Mg (2ml) [facility] [address]-23 Reviewed 07/16/2012 12:00 AM Hepatobiliary ductal system imaging with functional assessment Reviewed 07/16/2012 12:00 AM Decadron 8 mg [facility]#[id number] Reviewed 07/16/2012 12:00 AM Depo-Medrol 80mg [facility]#22595706575 Reviewed 07/16/2012 12:00 AM COMPREHEN METABOLIC PANEL Reviewed 07/16/2012 12:00 AM LIPID PANEL Reviewed 07/16/2012 12:00 AM Flu Injection 3 Years And Above [facility]# [address]-81 RHC Reviewed 08/19/2012 12:00 AM METABOLIC PANEL TOTAL CA Reviewed 12/21/2009 12:[address] ABDOMEN W/O & W/DYE Reviewed 10/02/2012 12:00 AM CHEST X-RAY 2VW FRONTAL&LATL Reviewed 10/09/2012 12:00 AM Decadron 8 mg [facility]#[id number] Reviewed 10/09/2012 12:00 AM Depo-Medrol 80mg [facility]#28176602057 Reviewed 12/09/2012 12:00 AM CHEST X-RAY 2VW [...] AM SYNVISC-ONE, Per 1 Mg (6ml) [facility] [address]-52 Reviewed 02/26/2013 12:00 AM Physical Therapy Reviewed 02/26/2013 12:[address] NECK SPINE W/O & W/DYE Reviewed 04/07/2013 12:00 AM INJECT TRIGGER POINTS 3/> Reviewed 04/07/2013 12:00 AM Kenalog per 10Mg Im-Nd#[address]-37(Srinath) Reviewed 07/21/2013 12:00 AM CHEST X-RAY 2VW FRONTAL&LATL Reviewed 07/21/2013 12:00 AM Decadron 8 mg [facility]# [address]-26 Reviewed 07/21/2013 12:00 AM Depo-Medrol 80 mg [facility]#[address]-97 Reviewed 07/21/2013 12:00 AM Rocephin 500 mg [facility]#7966-4266-78 Reviewed 09/22/2013 12:00 AM CHEST X-RAY 2VW FRONTAL&LATL Reviewed 10/29/2013 12:00 AM X-RAY EXAM OF ABDOMEN Reviewed 12/08/2013 12:00 AM THER/PROPH/DIAG INJ SC/IM Reviewed 12/08/2013 12:00 AM Decadron, Per 1 Mg [facility]# [address]-47 Reviewed 12/08/2013 12:00 AM Depo-Medrol, Per 80 Mg [facility]#2098-3465-55 Reviewed 12/08/2013 12:00 AM CHEST X-RAY 2VW [...] 01/05/2014 12:00 AM Decadron 8 mg [facility]# [address]-24 Reviewed 01/05/2014 12:00 AM Depo-Medrol 80 mg [facility]#[address]-58 Reviewed 01/05/2014 12:00 AM Rocephin 1 gram [facility]#3048-5969-11 Reviewed 03/15/2010 12:00 AM PROTHROMBIN TIME Reviewed [...] Reviewed 09/28/2010 12:00 AM Kenalog per 10Mg [facility]#[address]-35(Srinath) Reviewed 05/05/2014 12:00 AM DRAIN/INJ JOINT/BURSA W/O US Reviewed 05/05/2014 12:00 AM SYNVISC-ONE, Per 1 Mg (6ml) [facility] [address]-40 Reviewed 05/06/2014 12:00 AM COMPREHEN METABOLIC PANEL [...] 11/07/2010 12:00 AM Rocephin 500 mg [facility]#[address]-33 Reviewed 07/14/2014 12:00 AM Fluzone MEDICARE Only Reviewed 11/29/2010 12:00 AM INJECT TRIGGER POINTS 3/> Reviewed 11/29/2010 12:00 AM Kenalog per 10Mg [facility]#[address]-27(Srinath) Reviewed 07/14/2014 12:00 AM Decadron injection Reviewed [...] Vis Given Vis Pub CVX Pneumococcal 07/09/2016 [facility] Wilfrednar 13 [id number] Intramuscular Right Deltoid 07/09/2016 07/28/2015 133 History [...] II Feb 6 2013 9:08AM Gastroenteritis, Noninfectious b 6 2013 [...] Number Policy Group Number Start Date Medicare [facility] Medicare [facility] [id number] N/[place] [employer] [place] [employer] [place] [id number] N/A [employer] [place] [employer] Medicare [place] Life Ins [id number] N/A [place] Medical Assistance [facility] Medical Assistance Prog [id number] N/A Medicare Part B Medicare [place] [id number] Friday, 2008 Medicare Part A Medicare Part A [id number] N/A [facility] - RHC - Community [facility] RHC Comm [id number] Wednesday, 2015 [employer] - [place] State Plan [employer] [place] State Plan [id number] Wednesday, 2015 Medicare Part A Medicare - Lab/Xray [id number] N/A History of Encounters Visit Date Visit Type Provider 01/09/2017 Office visit Melecio Wilkinson DO 01/01/2017 Hospital Seth Devlin DO 12/31/2016 [facility] Rasta Mckeon MD 12/21/2016 Office visit Melecio Jaja DO 11/20/2016 Office visit Melecio Jaja DO 11/05/2016 Office visit Melecio Jaja DO 10/23/2016 Office visit Melecio Jaja DO 10/10/2016 Office visit Melecio Jaja DO 09/26/2016 Office visit Melecio Jaja DO 08/28/2016 Office visit Melecio Jaja DO 08/08/2016 Office visit Melecio Jaja DO 07/09/2016 Office visit Meleico Jaja DO 07/06/2016 Hospital Ama Barrios MD [...] MD 12/02/2014 Hospital Alfa Platt MD 12/02/2014 [facility] Magi Powers MD 11/29/2014 [facility] Magi Powers MD 11/29/2014 Voided Katty CRAIG 11/11/2014 Office visit 11/11/2014 Office visit Katty CRAIG 11/11/2014 Office visit Melecio Wilkinson DO 10/14/2014 Office visit Katty CRAIG 09/14/2014 Office visit Katty CRAIG 09/08/2014 Hospital Ama Barrios MD 09/07/2014 Office visit Melecio Jaja DO 08/16/2014 Nurse visit Katty Jefferson OYSTER CULTIVATOR 07/19/2014 Office visit Katty DURÁNP 07/14/2014 Office [...] Jaja DO 12/18/2013 Office visit Janis Navarrete HEADER MACHINE OPERATOR 12/08/2013 Office visit Janis Navarrete HEADER MACHINE OPERATOR 11/25/2013 Office visit Katty CRAIG [...] 05/14/2012 Office visit Gorge Yo MD 05/12/2012 [facility] DO 05/11/2012 [facility] DO 03/13/2012 Office visit Gorge [...]
--- OUTSIDE RECORDS SUMMARY | 2018-01-22 14:34 | XMS REPORT ---
Author Author Melecio Wilkinson [facility] Address [address] [place] [phone] Care Team Providers Care Reel Fed Printer Name Role Phone Melecio Wilkinson PCP Unavailable [...] 30 days changed to Jimmielreto by Dr. Yseenia Landersoderm 5 % topical adhesive patch,medicated 02/08/2010 [...] for 30 days Discontinued by Hospitalist at [place] Augmentin 875-125 mg oral tablet 11/07/2010 03/05/2011 [...] 07/11/2015 12:00 AM Isabela Per 10 Mg [facility][NOTE 3]#1214-2691-00 Reviewed 06/19/2011 12:00 AM DRAIN/INJ JOINT/BURSA W/O US Reviewed 06/19/2011 12:00 AM Kenalog 40 Mg Im-[facility]#1651-7617-27 Reviewed 08/25/2015 12:00 AM OFFICE/OUTPATIENT VISIT EST Reviewed 08/23/2015 12:00 AM Decadron, Per 1 Mg [facility][NOTE 3]# [address]-35 Reviewed 08/23/2015 12:00 AM Depo-Medrol, Per 80 Mg [facility][NOTE 3]#[address]-99 Reviewed 09/07/2015 12:00 AM X-RAY EXAM L-S [...] Reviewed 01/01/2012 12:00 AM Rocephin 1 gm [facility][NOTE 3]#[address]-70 Reviewed 01/16/2012 12:00 AM DRAIN/INJ JOINT/BURSA W/O US Reviewed 01/16/2012 12:00 AM Kenalog per 10Mg [facility]#[address]-17(Srinath) Reviewed 02/05/2012 12:[address] ABDOMEN W/O & W/DYE Reviewed 02/05/2012 12:[address] PELVIS W/O & W/DYE Reviewed 05/29/2012 12:00 AM DRAIN/INJ JOINT/BURSA W/O US Reviewed 05/29/2012 12:00 AM SYNVISC, Per 1 Mg (2ml) [facility][NOTE 3] [address]-83 Reviewed 06/05/2012 12:00 AM DRAIN/INJ JOINT/BURSA W/O US Reviewed 06/05/2012 12:00 AM SYNVISC, Per 1 Mg (2ml) [facility][NOTE 3] [address]-35 Reviewed 06/12/2012 12:00 AM DRAIN/INJ JOINT/BURSA W/O US Reviewed 06/12/2012 12:00 AM SYNVISC, Per 1 Mg (2ml) [facility][NOTE 3] [address]-18 Reviewed 07/16/2012 12:00 AM Hepatobiliary ductal system imaging with functional assessment Reviewed 07/16/2012 12:00 AM Decadron 8 mg [facility][NOTE 3]#84869947646 Reviewed 07/16/2012 12:00 AM Depo-Medrol 80mg [facility][NOTE 3]#09667358432 Reviewed 07/16/2012 12:00 AM COMPREHEN METABOLIC PANEL Reviewed 07/16/2012 12:00 AM LIPID PANEL Reviewed 07/16/2012 12:00 AM Flu Injection 3 Years And Above [facility][NOTE 3]# [address]-97 RHC Reviewed 08/19/2012 12:00 AM METABOLIC PANEL TOTAL CA Reviewed 12/21/2009 12:[address] ABDOMEN W/O & W/DYE Reviewed 10/02/2012 12:00 AM CHEST X-RAY 2VW FRONTAL&LATL Reviewed 10/09/2012 12:00 AM Decadron 8 mg [facility][NOTE 3]#06100145855 Reviewed 10/09/2012 12:00 AM Depo-Medrol 80mg [facility][NOTE 3]#76817219347 Reviewed 12/09/2012 12:00 AM CHEST X-RAY 2VW [...] 12:00 AM SYNVISC-ONE, Per 1 Mg (6ml) [facility][NOTE 3] [address]-00 Reviewed 02/26/2013 12:[address] NECK SPINE W/O & W/DYE Reviewed 04/07/2013 12:00 AM INJECT TRIGGER POINTS 3/> Reviewed 04/07/2013 12:00 AM Kenalog per 10Mg Im-Nd#[address]-55(Srinath) Reviewed 07/21/2013 12:00 AM CHEST X-RAY 2VW FRONTAL&LATL Reviewed 07/21/2013 12:00 AM Decadron 8 mg N[facility]# [address]-62 Reviewed 07/21/2013 12:00 AM Depo-Medrol 80 mg [facility]#[address]-04 Reviewed 07/21/2013 12:00 AM Rocephin 500 mg [place]#7628-1911-32 Reviewed 09/22/2013 12:00 AM CHEST X-RAY 2VW FRONTAL&LATL Returned 10/29/2013 12:00 AM X-RAY EXAM OF ABDOMEN Reviewed 12/08/2013 12:00 AM THER/PROPH/DIAG INJ SC/IM Reviewed 12/08/2013 12:00 AM Decadron, Per 1 Mg [place]# [address]-28 Reviewed 12/08/2013 12:00 AM Depo-Medrol, Per 80 Mg [place]#7524-8559-01 Reviewed 12/08/2013 12:00 AM CHEST X-RAY 2VW [...] 01/05/2014 12:00 AM Decadron 8 mg [place]# [address]-60 Reviewed 01/05/2014 12:00 AM Depo-Medrol 80 mg N[facility]#[address]-91 Reviewed 01/05/2014 12:00 AM Rocephin 1 gram [place]#7081-2096-09 Reviewed 03/15/2010 12:00 AM PROTHROMBIN TIME Reviewed [...] 12:00 AM Kenalog per 10Mg [facility]#[address]-41(Srinath) Reviewed 05/05/2014 12:00 AM DRAIN/INJ JOINT/BURSA W/O US Reviewed 05/05/2014 12:00 AM SYNVISC-ONE, Per 1 Mg (6ml) [facility][NOTE 3] [address]-90 Reviewed 05/06/2014 12:00 AM COMPREHEN METABOLIC PANEL [...] Reviewed 11/07/2010 12:00 AM Rocephin 500 mg [facility][NOTE 3]#[address]-57 Reviewed 07/14/2014 12:00 AM Fluzone MEDICARE Only Reviewed 11/29/2010 12:00 AM INJECT TRIGGER POINTS 3/> Reviewed 11/29/2010 12:00 AM Kenalog per 10Mg [facility]#[address]-51(Srinath) Reviewed 07/14/2014 12:00 AM Decadron injection Reviewed [...] Start Date Medicare Part A Medicare RHC [id number] N/A [employer] - RHC - [place] State Plan [employer] [place] State Plan [id number] Wednesday, 2015 Medicare Part A Medicare - Lab/Xray [id number] N/A [employer] [place] [employer] Medicare [place] [employer] Ins [id number] N/A [place] Medical Assistance [facility] Medical Assistance Prog [id number] N/A Medicare Part B Medicare Of [place] [id number] Friday, February 22, 2008 Medicare Part A Medicare Part A [id number] N/A [facility] - RHC - [facility] Plan [facility] RHC Comm [id number] Wednesday, September 23, 2015 History of Encounters [...] [facility] Gio STRONG 11/29/2014 Voided Katty CRAIG 11/11/2014 [...] Jaja DO 12/23/2013 Office visit Katty Jefferson INSIDE OUTSIDE SALES REPRESENTATIVE 12/23/2013 Office visit Melecio Wilkinson DO 12/18/2013 Office visit Janis Navarrete GENERAL INTERNIST AND PHYSICIAN LEADER 12/08/2013 Office visit Janis Navarrete GENERAL INTERNIST AND PHYSICIAN LEADER 11/25/2013 Office visit Katty Jefferson INSIDE OUTSIDE SALES REPRESENTATIVE 10/29/2013 Office visit Melecio Wilkinson DO 09/22/2013 Office visit Janis Navarrete GENERAL INTERNIST AND PHYSICIAN LEADER 07/28/2013 Office visit Katty Palma Ronny INSIDE OUTSIDE SALES REPRESENTATIVE 07/21/2013 Office visit Melecio Wilkinson DO 07/08/2013 Office visit Katty MNeville Jefferson INSIDE OUTSIDE SALES REPRESENTATIVE 05/06/2013 Office visit Melecio Wilkinson DO 04/07/2013 Office visit Gorge Yo MD 02/26/2013 Office visit Melecio Wilknison DO 01/29/2013 Office visit Gorge Yo MD 01/06/2013 Office visit Gorge Yo MD 12/09/2012 [facility] Ama Barrios MD 12/09/2012 Office visit Stephanie Richardson GENERAL INTERNIST AND PHYSICIAN LEADER 11/26/2012 Office visit Gorge Yo MD 10/30/2012 [...] 05/14/2012 Office visit Gorge Yo MD 05/12/2012 [facility] DO 05/11/2012 [facility] DO 03/13/2012 Office visit Gorge Yo [...]
--- OUTSIDE RECORDS SUMMARY | 2018-01-22 14:38 | XMS REPORT ---
Author Author Melecio Wilkinson [facility] Address [address] [place] [phone] Care Team Providers Care Straightener Name Role Phone Melecio Wilkinson PCP Unavailable [...] 2 times per day for 5 days triamcinolone acetonide topical cream 0.1 % 02/28/2015 [...] route once daily 30 minutes before meals Name Start Date Expiration Date SIG Comments [...] for 30 days Discontinued by Hospitalist at [place] Augmentin Oral Tablet 875-125 mg 11/07/2010 03/05/2011 [...] HC BMI BSA BMI Percentile O2 Sat(%) 02/28/2015 4:15:00 PM 110 mmHg 76 mmHg [...] 10/14/2014 12:00 AM X-RAY EXAM L-S SPINE 2 VWS Returned 03/05/2011 12:00 AM ECHO EXAM [...] 27 2010 3:56PM Osteoarthrosis, lower leg Sep 27 2010 4:56PM Diarrhea Jul 26 2011 10:00AM [...] Date Medicare Part A Medicare Part A [id number] N/A [facility] Medicare [facility] Life Ins [id number] N/A [place] Medical Assistance [facility] Medical Assistance Pro [id number] N/A Medicare Part B Medicare Of [place] [id number] Friday, 2008 History of Encounters Visit Date Visit Type Provider 02/28/2015 Office visit Melecio Wilkinson DO 02/17/2015 [...] Powers MD 11/29/2014 Voided Katty CRAIG 11/29/2014 [facility] Magi Powers MD 11/11/2014 [...] Jaja DO 12/23/2013 Office visit Katty Jefferson SOCIAL SERVICES DIRECTOR 12/18/2013 Office visit Janis Navarrete OPERATING SYSTEMS SPECIALIST 12/08/2013 Office visit Janis Navarrete OPERATING SYSTEMS SPECIALIST 11/25/2013 Office visit Katty Jefferson SOCIAL SERVICES DIRECTOR 10/29/2013 Office visit Melecio Jaja DO 09/22/2013 Office visit Janis Navarrete OPERATING SYSTEMS SPECIALIST 07/28/2013 Office visit Katty Jefferson SOCIAL SERVICES DIRECTOR 07/21/2013 Office visit Melecio Wilkinson DO 07/08/2013 Office visit Katty [place] Jefferson SOCIAL SERVICES DIRECTOR 05/06/2013 Office visit Melecio Wilkinson DO 04/07/2013 Office visit Gorge Yo MD 02/26/2013 Office visit Melecio Wilkinson DO 01/29/2013 Office visit Gorge Yo MD 01/06/2013 Office visit Gorge Yo MD 12/09/2012 Office visit Stephanie Rcihardson OPERATING SYSTEMS SPECIALIST 12/09/2012 [facility] Ama Barrios MD 11/26/2012 Office [...] 05/14/2012 Office visit Gorge Yo MD 05/12/2012 [facility] DO 05/11/2012 [facility] DO 03/13/2012 Office visit Gorge [...] MD 03/31/2010 Laboratory Alfonso Camacho MD 03/31/2010 [facility] Alfonso Camacho MD 03/21/2010 [...]
--- OUTSIDE RECORDS SUMMARY | 2018-01-22 14:43 | XMS REPORT ---
Author Author Melecio Wilkinson [facility] Address [address] [place] [phone] Care Team Providers Care Analytics Consultant Name Role Phone Melecio Wilkinson PCP [...] oral route once daily in the evening Name Start Date Expiration Date SIG Comments [...] for 30 days Discontinued by Hospitalist at [place] niacin 500 mg oral tablet 10/10/2016 take [...] route every 12 hours for 30 days [place] guerita Amitiza 24 mcg oral capsule 05/03/2016 [...] Kenalog, Per 10 Mg [facility]#2585-7667-56 Reviewed 06/19/2011 12:00 AM DRAIN/INJ JOINT/BURSA W/O US Reviewed 06/19/2011 12:00 AM Kenalog 40 Mg Im-[facility]#3373-9650-28 Reviewed 08/25/2015 12:00 AM OFFICE/OUTPATIENT VISIT EST Reviewed 08/23/2015 12:00 AM Decadron, Per 1 Mg [facility]# [address]-50 Reviewed 08/23/2015 12:00 AM Depo-Medrol, Per 80 Mg [facility]#[address]-56 Reviewed 09/07/2015 12:00 AM X-RAY EXAM L-S [...] Per 1 Mg [facility]# [address]-90 Reviewed 08/08/2016 12:00 AM Depo-Medrol, Per 80 Mg [facility]#[address]-92 Reviewed 01/01/2012 12:00 AM Rocephin 1 gm [facility]#[address]-30 Reviewed 01/16/2012 12:00 AM DRAIN/INJ JOINT/BURSA W/O US Reviewed 01/16/2012 12:00 AM Kenalog per 10Mg Im[facility]#[address]-99(Srinath) Reviewed 09/26/2016 12:00 AM CHEST X-RAY 2VW FRONTAL&LATL Reviewed 10/23/2016 12:00 AM INJECT SPINE LUMBAR/SACRAL Reviewed 02/05/2012 12:[address] ABDOMEN W/O & W/DYE Reviewed 02/05/2012 12:[address] PELVIS W/O & W/DYE Reviewed 05/29/2012 12:00 AM DRAIN/INJ JOINT/BURSA W/O US Reviewed 05/29/2012 12:00 AM SYNVISC, Per 1 Mg (2ml) [facility] [address]-03 Reviewed 06/05/2012 12:00 AM DRAIN/INJ JOINT/BURSA W/O US Reviewed 06/05/2012 12:00 AM SYNVISC, Per 1 Mg (2ml) [facility] [address]-55 Reviewed 06/12/2012 12:00 AM DRAIN/INJ JOINT/BURSA W/O US Reviewed 06/12/2012 12:00 AM SYNVISC, Per 1 Mg (2ml) [facility] [address]-45 Reviewed 07/16/2012 12:00 AM Hepatobiliary ductal system imaging with functional assessment Reviewed 07/16/2012 12:00 AM Decadron 8 mg [facility]#[id number] Reviewed 07/16/2012 12:00 AM Depo-Medrol 80mg [facility]#07761045898 Reviewed 07/16/2012 12:00 AM COMPREHEN METABOLIC PANEL Reviewed 07/16/2012 12:00 AM LIPID PANEL Reviewed 07/16/2012 12:00 AM Flu Injection 3 Years And Above [facility]# [address]-59 RHC Reviewed 08/19/2012 12:00 AM METABOLIC PANEL TOTAL CA Reviewed 12/21/2009 12:[address] ABDOMEN W/O & W/DYE Reviewed 10/02/2012 12:00 AM CHEST X-RAY 2VW FRONTAL&LATL Reviewed 10/09/2012 12:00 AM Decadron 8 mg [facility]#[id number] Reviewed 10/09/2012 12:00 AM Depo-Medrol 80mg [facility]#73983297172 Reviewed 12/09/2012 12:00 AM CHEST X-RAY 2VW [...] 1 Mg (6ml) [facility] [address]-98 Reviewed 02/26/2013 12:[address] NECK SPINE W/O & W/DYE Reviewed 04/07/2013 12:00 AM INJECT TRIGGER POINTS 3/> Reviewed 04/07/2013 12:00 AM Kenalog per 10Mg [facility]#[address]-38(Srinath) Reviewed 07/21/2013 12:00 AM CHEST X-RAY 2VW FRONTAL&LATL Reviewed 07/21/2013 12:00 AM Decadron 8 mg [facility]# [address]-80 Reviewed 07/21/2013 12:00 AM Depo-Medrol 80 mg [facility]#[address]-05 Reviewed 07/21/2013 12:00 AM Rocephin 500 mg [facility]#7500-4044-57 Reviewed 09/22/2013 12:00 AM CHEST X-RAY 2VW FRONTAL&LATL Reviewed 10/29/2013 12:00 AM X-RAY EXAM OF ABDOMEN Reviewed 12/08/2013 12:00 AM THER/PROPH/DIAG INJ SC/IM Reviewed 12/08/2013 12:00 AM Decadron, Per 1 Mg [facility]# [address]-00 Reviewed 12/08/2013 12:00 AM Depo-Medrol, Per 80 Mg [facility]#3977-4467-17 Reviewed 12/08/2013 12:00 AM CHEST X-RAY 2VW [...] Decadron 8 mg [facility]# [address]-27 Reviewed 01/05/2014 12:00 AM Depo-Medrol 80 mg [facility]#[address]-65 Reviewed 01/05/2014 12:00 AM Rocephin 1 gram [facility]#9013-5300-25 Reviewed 03/15/2010 12:00 AM PROTHROMBIN TIME Reviewed [...] 09/28/2010 12:00 AM Kenalog per 10Mg Im[facility]#[address]-56(Srinath) Reviewed 05/05/2014 12:00 AM DRAIN/INJ JOINT/BURSA W/O US Reviewed 05/05/2014 12:00 AM SYNVISC-ONE, Per 1 Mg (6ml) [facility] [address]-48 Reviewed 05/06/2014 12:00 AM COMPREHEN METABOLIC PANEL [...] AM Rocephin 500 mg [facility]#[address]-27 Reviewed 07/14/2014 12:00 AM Fluzone MEDICARE Only Reviewed 11/29/2010 12:00 AM INJECT TRIGGER POINTS 3/> Reviewed 11/29/2010 12:00 AM Kenalog per 10Mg -[facility]#[address]-69(Srinath) Reviewed 07/14/2014 12:00 AM Decadron injection Reviewed [...] CVX Pneumococcal 07/09/2016 [facility] Prevnar 13 [id number] Intramuscular Right Deltoid 07/09/2016 07/28/2015 133 History [...] Lumbar spinal stenosis Oct 23 2016 2:28PM Payers Insurance Name Company Name Plan Name Plan Number Policy Number Policy Group Number Start Date Medicare RHC Medicare [facility] [id number] N/A Amerigroup [place] Amer[place] [id number] N/A [employer] [place] [employer] Medicare [employer] [place] [employer] [phone] N/A [place] Medical Assistance [facility] Medical Assistance Pro [id number] N/A Medicare Part B Medicare Of [place] [id number] Friday, 2008 Medicare Part A Medicare Part A [id number] N/A [facility] - RHC - Community Plan [facility] RHC Comm [id number] Wednesday, 2015 [employer] - RHC - [place] State Plan [employer] - [place]HC [place] State Plan [id number] Wednesday, 2015 Medicare Part A Medicare - Lab/Xray [id number] N/A History of Encounters Visit Date Visit Type Provider 10/23/2016 Office visit Melecio Cruzte DO 10/10/2016 Office visit Melecio Jaja DO [...] DO 01/12/2015 Office visit Katty CRAIG 12/16/2014 [facility] Alfa Platt MD 12/14/2014 Voided Melecio Jaja DO 12/08/2014 Office visit Alfa Platt MD 12/08/2014 Office visit Melecio Jaja DO 12/07/2014 Nurse visit Riri Salazar MD 12/02/2014 [facility] Alfa Platt MD 12/02/2014 [facility] Magi Gio STRONG 11/29/2014 [facility] Gio STRONG 11/29/2014 Voided Katty CRAIG [...] Jaja DO 05/05/2014 Office visit Katty Jefferson ELECTRIC MOTOR REPAIRMAN 04/26/2014 Office visit Katty Jefferson ELECTRIC MOTOR REPAIRMAN 03/24/2014 Office visit Katty DURÁNP 02/24/2014 Office visit Katty Jefferson ELECTRIC MOTOR REPAIRMAN 01/05/2014 Office visit Melecio Jaja DO 12/23/2013 Office visit Katty Jefferson ELECTRIC MOTOR REPAIRMAN 12/23/2013 Office visit Melecio Jaja DO 12/18/2013 Office visit Janis Navarrete DRYING AND WINDING SUPERVISOR 12/08/2013 Office visit Janis Navarrete DRYING AND WINDING SUPERVISOR 11/25/2013 Office visit Katty Jefferson ELECTRIC MOTOR REPAIRMAN 10/29/2013 Office visit Melecio Wilkinson DO 09/22/2013 Office visit Janis Navarrete DRYING AND WINDING SUPERVISOR 07/28/2013 Office visit Katty Jefferson ELECTRIC MOTOR REPAIRMAN 07/21/2013 Office visit Melecio Wilkinson DO 07/08/2013 Office visit Katty CRAIG 05/06/2013 Office visit Melecio Wilkinson DO 04/07/2013 Office visit Gorge Yo MD 02/26/2013 Office visit Melecio Wilkinson DO 01/29/2013 Office visit Gorge Yo MD 01/06/2013 Office visit Gorge Yo MD 12/09/2012 [facility] Ama Barrios MD 12/09/2012 Office visit Stephanie Richardson DRYING AND WINDING SUPERVISOR 11/26/2012 Office visit Gorge Yo MD [...] Office visit Gorge Yo MD 05/12/2012 [facility] DO 05/11/2012 [facility] DO 03/13/2012 Office visit Gorge [...]
--- OUTSIDE RECORDS SUMMARY | 2018-01-22 14:49 | XMS REPORT ---
Author Author Melecio Wilkinson [facility] Address [address] [place] [id number] Care Team Providers Care Ranch Manager Name Role Phone Melecio Wilkinson PCP [...] to 6 hours for 30 days pain Albuterol Sulfate 2.5 mg /3 mL (0.083 [...] for 30 days Discontinued by Hospitalist at [place] Augmentin 875-125 mg oral tablet 11/07/2010 03/05/2011 [...] route every 12 hours for 30 days [place] stoned Problem List Description Status Onset [...] 07/11/2015 12:00 AM Kenalog, Per 10 Mg [facility]#7252-6643-79 Reviewed 06/19/2011 12:00 AM DRAIN/INJ JOINT/BURSA W/O US Reviewed 06/19/2011 12:00 AM Kenalog 40 Mg [facility]#1019-1406-61 Reviewed 08/25/2015 12:00 AM OFFICE/OUTPATIENT VISIT EST Reviewed 08/23/2015 12:00 AM Decadron, Per 1 Mg [facility]# [address]-19 Reviewed 08/23/2015 12:00 AM Depo-Medrol, Per 80 Mg [facility]#[address]-26 Reviewed 09/07/2015 12:00 AM X-RAY EXAM L-S [...] 08/08/2016 12:00 AM Decadron, Per 1 Mg [facility]# [address]-16 Reviewed 08/08/2016 12:00 AM Depo-Medrol, Per 80 Mg [facility]#[address]-52 Reviewed 01/01/2012 12:00 AM Rocephin 1 gm [facility]#[address]-47 Reviewed 01/16/2012 12:00 AM DRAIN/INJ JOINT/BURSA W/O US Reviewed 01/16/2012 12:00 AM Kenalog per 10Mg [facility]#[address]-37(Srinath) Reviewed 02/05/2012 12:[address] ABDOMEN W/O & W/DYE Reviewed 02/05/2012 12:[address] PELVIS W/O & W/DYE Reviewed 05/29/2012 12:00 AM DRAIN/INJ JOINT/BURSA W/O US Reviewed 05/29/2012 12:00 AM SYNVISC, Per 1 Mg (2ml) [facility] [address]-56 Reviewed 06/05/2012 12:00 AM DRAIN/INJ JOINT/BURSA W/O US Reviewed 06/05/2012 12:00 AM SYNVISC, Per 1 Mg (2ml) [facility] 2001 [address]-94 Reviewed 06/12/2012 12:00 AM DRAIN/INJ JOINT/BURSA W/O US Reviewed 06/12/2012 12:00 AM SYNVISC, Per 1 Mg (2ml) [facility] [address]-42 Reviewed 07/16/2012 12:00 AM Hepatobiliary ductal system imaging with functional assessment Reviewed 07/16/2012 12:00 AM Decadron 8 mg [facility]#93122714517 Reviewed 07/16/2012 12:00 AM Depo-Medrol 80mg [facility]#25342414305 Reviewed 07/16/2012 12:00 AM COMPREHEN METABOLIC PANEL Reviewed 07/16/2012 12:00 AM LIPID PANEL Reviewed 07/16/2012 12:00 AM Flu Injection 3 Years And Above [facility]# [address]-79 RHC Reviewed 08/19/2012 12:00 AM METABOLIC PANEL TOTAL CA Reviewed 12/21/2009 12:[address] ABDOMEN W/O & W/DYE Reviewed 10/02/2012 12:00 AM CHEST X-RAY 2VW FRONTAL&LATL Reviewed 10/09/2012 12:00 AM Decadron 8 mg [facility]#73796589369 Reviewed 10/09/2012 12:00 AM Depo-Medrol 80mg [facility]#10663515294 Reviewed 12/09/2012 12:00 AM CHEST X-RAY 2VW [...] 12:00 AM SYNVISC-ONE, Per 1 Mg (6ml) [facility] 2001 [address]-09 Reviewed 02/26/2013 12:[address] NECK SPINE W/O & W/DYE Reviewed 04/07/2013 12:00 AM INJECT TRIGGER POINTS 3/> Reviewed 04/07/2013 12:00 AM Kenalog per 10Mg [facility]#[address]-75(Srinath) Reviewed 07/21/2013 12:00 AM CHEST X-RAY 2VW FRONTAL&LATL Reviewed 07/21/2013 12:00 AM Decadron 8 mg [facility]# [address]-93 Reviewed 07/21/2013 12:00 AM Depo-Medrol 80 mg [facility]#[address]-80 Reviewed 07/21/2013 12:00 AM Rocephin 500 mg [facility]#2868-0960-76 Reviewed 09/22/2013 12:00 AM CHEST X-RAY 2VW FRONTAL&LATL Reviewed 10/29/2013 12:00 AM X-RAY EXAM OF ABDOMEN Reviewed 12/08/2013 12:00 AM THER/PROPH/DIAG INJ SC/IM Reviewed 12/08/2013 12:00 AM Decadron, Per 1 Mg [facility]# [address]-28 Reviewed 12/08/2013 12:00 AM Depo-Medrol, Per 80 Mg [facility]#3954-2919-78 Reviewed 12/08/2013 12:00 AM CHEST X-RAY 2VW [...] Reviewed 01/05/2014 12:00 AM Decadron 8 mg [facility]# [address]-53 Reviewed 01/05/2014 12:00 AM Depo-Medrol 80 mg [facility]#[address]-89 Reviewed 01/05/2014 12:00 AM Rocephin 1 gram [facility]#3906-8727-39 Reviewed 03/15/2010 12:00 AM PROTHROMBIN TIME Reviewed [...] Reviewed 09/28/2010 12:00 AM Kenalog per 10Mg [facility]#[address]-43(Srinath) Reviewed 05/05/2014 12:00 AM DRAIN/INJ JOINT/BURSA W/O US Reviewed 05/05/2014 12:00 AM SYNVISC-ONE, Per 1 Mg (6ml) [facility] [address]-94 Reviewed 05/06/2014 12:00 AM COMPREHEN METABOLIC PANEL [...] Reviewed 11/07/2010 12:00 AM Rocephin 500 mg [facility]#[address]-75 Reviewed 07/14/2014 12:00 AM Fluzone MEDICARE Only Reviewed 11/29/2010 12:00 AM INJECT TRIGGER POINTS 3/> Reviewed 11/29/2010 12:00 AM Kenalog per 10Mg [facility]#[address]-61(Srinath) Reviewed 07/14/2014 12:00 AM Decadron injection Reviewed [...] CVX Pneumococcal 07/09/2016 [facility] Prevnar 13 [id number] Intramuscular Right Deltoid 07/09/2016 07/28/2015 133 History [...] Start Date Medicare Part A Medicare RHC [id number] N/A [employer] - RHC - [place] State Plan [employer] - RHC [place] State Plan [id number] Wednesday, 2015 Medicare Part A Medicare - Lab/Xray [id number] N/A [employer] [place] State Plan Amer[employer] [place] State Plan [id number] N/A [employer] [place] [employer] Medicare [place] [employer] Ins [id number] N/A [place] Medical Assistance [facility] Medical Assistance Prog [id number] N/A Medicare Part B Medicare Of [place] [id number] Friday, February 22, 2008 Medicare Part A Medicare Part A [id number] N/A [facility] - RHC - Community Plan [facility] RHC Comm [id number] Wednesday, September 23, 2015 History of Encounters [...] visit Katty CRAIG 04/08/2015 Office visit Melecio Jjaa DO 04/07/2015 Voided Melecio Jaja DO 03/29/2015 Office visit Katty CRAIG 03/28/2015 Office visit Melecio Jaja DO 03/15/2015 Office visit Katty CRAIG 02/28/2015 Office visit Melecio Jaja DO 02/17/2015 Office visit Melecio Jaja DO 02/17/2015 Office visit Katty CRAIG 01/19/2015 Office visit Katty CRAIG 01/13/2015 Office visit Melecio Jaja DO 01/12/2015 Office visit Katty CRAIG 12/16/2014 [facility] Alfa Platt MD 12/14/2014 Voided Melecio Jaja DO 12/08/2014 Office visit Alfa Platt MD 12/08/2014 Office visit Melecio Jaja DO 12/07/2014 Nurse visit Riri Salazar MD 12/02/2014 [facility] Alfa Platt MD 12/02/2014 [facility] Magi Powers MD 11/29/2014 [facility] Magi Powers MD 11/29/2014 Voided Katty CRAIG 11/11/2014 Office visit 11/11/2014 Office visit Katty CRAIG 11/11/2014 Office visit Melecio Jaja DO 10/14/2014 Office visit Katty CRAIG 09/14/2014 Office visit Katty CRAIG 09/08/2014 [facility] Ama Barrios MD 09/07/2014 Office visit [...] Wilkinson DO 12/18/2013 Office visit Janis Navarrete NETWORK ASSOCIATE 12/08/2013 Office visit Janis Navarrete APRN 11/25/2013 Office visit Katty CRAIG 10/29/2013 Office visit Melecio Wilkinson DO 09/22/2013 Office visit Janis Navarrete NETWORK ASSOCIATE 07/28/2013 Office visit Katty CRAIG 07/21/2013 Office visit Melecio Wilkinson DO 07/08/2013 Office visit Katty CRAIG 05/06/2013 Office visit Melecio Wilkinson DO 04/07/2013 Office visit Gorge Yo MD 02/26/2013 Office visit Melecio Wilkinson DO 01/29/2013 Office visit Gorge Yo MD 01/06/2013 Office visit Gorge Yo MD 12/09/2012 [facility] Ama Barrios MD 12/09/2012 Office visit Stephanie Richardson NETWORK ASSOCIATE 11/26/2012 Office visit Gorge Yo MD 10/30/2012 [facility] Gorge Yo MD 10/29/2012 Office visit [...] Office visit Gorge Yo MD 05/12/2012 [facility] DO 05/11/2012 [facility] DO 03/13/2012 Office visit Gorge Yo MD [...] visit Gorge Yo MD 03/22/2011 Office visit Goreg Yo MD 03/05/2011 Office visit Melecio Wilkinson DO 02/06/2011 [facility] Gorge Yo MD 01/08/2011 Office visit Melecio Wilkinson DO 12/27/2010 Office visit Gorge Yo MD 11/29/2010 Office visit Gorge Yo MD 11/07/2010 Office visit Melecio Wilkinson DO 09/28/2010 Office visit Gorge Yo MD 09/05/2010 [facility] Gorge Yo MD 08/28/2010 Office visit [...]
--- OUTSIDE RECORDS SUMMARY | 2018-01-22 14:54 | XMS REPORT ---
Author Author Melecio Wilkinson [facility] Address [address] [place] [phone] Care Team Providers Care Waste Management Specialist Name Role Phone Melecio Wilkinson PCP [...] prn for 30 days May fill 11/26/16 Name Start Date Expiration Date SIG Comments [...] for 30 days Discontinued by Hospitalist at [place] niacin 500 mg oral tablet 10/10/2016 take [...] route every 12 hours for 30 days [place] guerita Amitiza 24 mcg oral capsule 05/03/2016 [...] 07/11/2015 12:00 AM Kenalog, Per 10 Mg [facility]#9505-8608-96 Reviewed 06/19/2011 12:00 AM DRAIN/INJ JOINT/BURSA W/O US Reviewed 06/19/2011 12:00 AM Kenalog 40 Mg [facility]#9403-7309-26 Reviewed 08/25/2015 12:00 AM OFFICE/OUTPATIENT VISIT EST Reviewed 08/23/2015 12:00 AM Decadron, Per 1 Mg [facility]# [address]-32 Reviewed 08/23/2015 12:00 AM Depo-Medrol, Per 80 Mg [facility]#[address]-36 Reviewed 09/07/2015 12:00 AM X-RAY EXAM L-S [...] 08/08/2016 12:00 AM Decadron, Per 1 Mg [facility]# [address]-99 Reviewed 08/08/2016 12:00 AM Depo-Medrol, Per 80 Mg [facility]#[address]-40 Reviewed 01/01/2012 12:00 AM Rocephin 1 gm [facility]#[address]-68 Reviewed 01/16/2012 12:00 AM DRAIN/INJ JOINT/BURSA W/O US Reviewed 01/16/2012 12:00 AM Kenalog per 10Mg [facility]#[address]-64(Srinath) Reviewed 09/26/2016 12:00 AM CHEST X-RAY 2VW FRONTAL&LATL Reviewed 10/23/2016 12:00 AM INJECT SPINE LUMBAR/SACRAL Reviewed 02/05/2012 12:[address] ABDOMEN W/O & W/DYE Reviewed 02/05/2012 12:[address] PELVIS W/O & W/DYE Reviewed 11/01/2016 12:00 AM URNLS DIP STICK/TABLET RGNT AUTO W/O MICROSCOPY Reviewed 11/20/2016 12:00 AM GLYCOSYLATED HEMOGLOBIN TEST Reviewed 11/20/2016 12:00 AM HEPATITIS C AB TEST Returned 05/29/2012 12:00 AM DRAIN/INJ JOINT/BURSA W/O US Reviewed 05/29/2012 12:00 AM SYNVISC, Per 1 Mg (2ml) [facility] [address]-00 Reviewed 06/05/2012 12:00 AM DRAIN/INJ JOINT/BURSA W/O US Reviewed 06/05/2012 12:00 AM SYNVISC, Per 1 Mg (2ml) [facility] [address]-66 Reviewed 06/12/2012 12:00 AM DRAIN/INJ JOINT/BURSA W/O US Reviewed 06/12/2012 12:00 AM SYNVISC, Per 1 Mg (2ml) [facility] [address]-99 Reviewed 07/16/2012 12:00 AM Hepatobiliary ductal system imaging with functional assessment Reviewed 07/16/2012 12:00 AM Decadron 8 mg [facility]#40253626575 Reviewed 07/16/2012 12:00 AM Depo-Medrol 80mg [facility]#60462788068 Reviewed 07/16/2012 12:00 AM COMPREHEN METABOLIC PANEL Reviewed 07/16/2012 12:00 AM LIPID PANEL Reviewed 07/16/2012 12:00 AM Flu Injection 3 Years And Above [facility]# [address]-37 RHC Reviewed 08/19/2012 12:00 AM METABOLIC PANEL TOTAL CA Reviewed 12/21/2009 12:[address] ABDOMEN W/O & W/DYE Reviewed 10/02/2012 12:00 AM CHEST X-RAY 2VW FRONTAL&LATL Reviewed 10/09/2012 12:00 AM Decadron 8 mg [facility]#03739587055 Reviewed 10/09/2012 12:00 AM Depo-Medrol 80mg [facility]#59507320838 Reviewed 12/09/2012 12:00 AM CHEST X-RAY 2VW [...] 12:00 AM SYNVISC-ONE, Per 1 Mg (6ml) [facility] [address]-85 Reviewed 02/26/2013 12:[address] NECK SPINE W/O & W/DYE Reviewed 04/07/2013 12:00 AM INJECT TRIGGER POINTS 3/> Reviewed 04/07/2013 12:00 AM Kenalog per 10Mg [facility]#[address]-71(Srinath) Reviewed 07/21/2013 12:00 AM CHEST X-RAY 2VW FRONTAL&LATL Reviewed 07/21/2013 12:00 AM Decadron 8 mg [facility]# [address]-85 Reviewed 07/21/2013 12:00 AM Depo-Medrol 80 mg [facility]#[address]-30 Reviewed 07/21/2013 12:00 AM Rocephin 500 mg [facility]#6302-8484-47 Reviewed 09/22/2013 12:00 AM CHEST X-RAY 2VW FRONTAL&LATL Reviewed 10/29/2013 12:00 AM X-RAY EXAM OF ABDOMEN Reviewed 12/08/2013 12:00 AM THER/PROPH/DIAG INJ SC/IM Reviewed 12/08/2013 12:00 AM Decadron, Per 1 Mg [facility]# [address]-04 Reviewed 12/08/2013 12:00 AM Depo-Medrol, Per 80 Mg [facility]#4673-8360-12 Reviewed 12/08/2013 12:00 AM CHEST X-RAY 2VW [...] Reviewed 01/05/2014 12:00 AM Decadron 8 mg [facility]# [address]-12 Reviewed 01/05/2014 12:00 AM Depo-Medrol 80 mg [facility]#[address]-08 Reviewed 01/05/2014 12:00 AM Rocephin 1 gram [facility]#5571-1227-94 Reviewed 03/15/2010 12:00 AM PROTHROMBIN TIME Reviewed [...] per 10Mg [facility]#[address]-88(Srinaht) Reviewed 05/05/2014 12:00 AM DRAIN/INJ JOINT/BURSA W/O US Reviewed 05/05/2014 12:00 AM SYNVISC-ONE, Per 1 Mg (6ml) [facility] [address]-88 Reviewed 05/06/2014 12:00 AM COMPREHEN METABOLIC PANEL [...] Reviewed 11/07/2010 12:00 AM Rocephin 500 mg [facility]#[address]-37 Reviewed 07/14/2014 12:00 AM Fluzone MEDICARE Only Reviewed 11/29/2010 12:00 AM INJECT TRIGGER POINTS 3/> Reviewed 11/29/2010 12:00 AM Kenalog per 10Mg [facility]#[address]-93(Srinath) Reviewed 07/14/2014 12:00 AM Decadron injection Reviewed [...] HGB A1C 5.90 %Est Avg Glucose 122.6 mg/dL History Of Immunizations Name Date Admin Mfg Name Mfg Code Trade Name Lot# Route Inj Vis Given Vis Pub CVX Pneumococcal 07/09/2016 Sewiq-Otvdle-Mfshoum-Praxiafia WAL Prevnar 13 [id number] Intramuscular Right Deltoid 07/09/2016 07/28/2015 133 History [...] C screening test Nov 20 2016 10:29AM Payers Insurance Name Company Name Plan Name Plan Number Policy Number Policy Group Number Start Date Medicare RHC Medicare RHC [id number] N/A [employer]igroup [place] State Plan [facility] [id number] N/A [employer] [place] [employer] Medicare [place] [employer] [id number] N/A [place] Medical Assistance [facility] Medical Assistance Prog [id number] N/A Medicare Part B Medicare Of [place] [id number] Friday, 2008 Medicare Part A Medicare Part A [id number] N/A [facility] - RHC - [facility] Plan [facility] RHC Comm [id number] Wednesday, 2015 [employer] - [place] [employer] [place] [id number] Wednesday, 2015 Medicare Part A Medicare - Lab/Xray [id number] N/A History of Encounters Visit Date Visit [...] MD 12/02/2014 Hospital Alfa Platt MD 12/02/2014 [facility] Magi Powers MD 11/29/2014 [facility] Magi Powers MD 11/29/2014 Voided Katty CRAIG [...] Melecio Wilkinson DO 07/08/2013 Office visit [place] Ronny KIARA 05/06/2013 Office visit Melecio Wilkinson DO 04/07/2013 Office visit Gorge Yo MD 02/26/2013 Office visit Melecio Wilkinson DO 01/29/2013 Office visit Gorge Yo MD 01/06/2013 Office visit Gorge Yo MD 12/09/2012 [facility] Ama Barrios MD 12/09/2012 Office visit Stephanie Richardson [employer] 11/26/2012 Office visit Gorge Yo MD 10/30/2012 [...] 05/14/2012 Office visit Gorge Yo MD 05/12/2012 [facility] DO 05/11/2012 [facility] DO 03/13/2012 Office visit Gorge [...] Wilkinson DO 02/06/2011 [facility] Gorge Yo MD 01/08/2011 Office visit Melecio [...] Yo MD 04/02/2010 [facility] Alfonso Camacho MD 03/31/2010 Laboratory Alfonso Camacho MD 03/31/2010 Laboratory Alfonso Camacho MD 03/31/2010 [facility] Alfonso Camacho MD 03/21/2010 Procedures Gorge Yo [...]
--- OUTSIDE RECORDS SUMMARY | 2018-01-22 15:00 | XMS REPORT ---
Author Author Melecio Wilkinson [facility] Address [address] [place] [id number] Care Team Providers Care Unemployment Claims Adjudicator Name Role Phone Melecio Wilkinson PCP Unavailable [...] daily at bedtime for 30 days Lyrica 50 mg oral capsule take 1 capsule (50 mg) by oral route 2 times per day oxycodone 20 mg oral tablet 04/11/2016 05/11/2016 take 1 tablet by oral route every 4 to 6 hours for 30 days pain oxycodone 30 mg oral tablet,oral only,ext.rel.12 hr 04/11/2016 take 1 tablet (30 mg) by oral route every 12 hours Singulair 10 mg oral tablet 04/11/2016 take 1 tablet (10 mg) by oral [...] for 30 days Discontinued by Hospitalist at [place] Augmentin 875-125 mg oral tablet 11/07/2010 03/05/2011 [...] route every 12 hours for 30 days Roselle stoned Problem List Description Status Onset SI [...] HC BMI BSA BMI Percentile O2 Sat(%) 04/11/2016 8:13:00 AM 166 mmHg 80 mmHg [...] Per 10 Mg [facility]#3538-9206-24 Reviewed 06/19/2011 12:00 AM DRAIN/INJ JOINT/BURSA W/O US Reviewed 06/19/2011 12:00 AM Kenalog 40 Mg Im-Nd#9963-9597-64 Reviewed 08/25/2015 12:00 AM OFFICE/OUTPATIENT VISIT EST Reviewed 08/23/2015 12:00 AM Decadron, Per 1 Mg [facility]# [address]-13 Reviewed 08/23/2015 12:00 AM Depo-Medrol, Per 80 Mg [facility]#[address]-09 Reviewed 09/07/2015 12:00 AM X-RAY EXAM L-S [...] Rocephin 1 gm [facility]#[address]-55 Reviewed 01/16/2012 12:00 AM DRAIN/INJ JOINT/BURSA W/O US Reviewed 01/16/2012 12:00 AM Kenalog per 10Mg [facility]#[address]-55(Srinath) Reviewed 02/05/2012 12:[address] ABDOMEN W/O & W/DYE Reviewed 02/05/2012 12:[address] PELVIS W/O & W/DYE Reviewed 05/29/2012 12:00 AM DRAIN/INJ JOINT/BURSA W/O US Reviewed 05/29/2012 12:00 AM SYNVISC, Per 1 Mg (2ml) [facility] [address]-44 Reviewed 06/05/2012 12:00 AM DRAIN/INJ JOINT/BURSA W/O US Reviewed 06/05/2012 12:00 AM SYNVISC, Per 1 Mg (2ml) [facility] [address]-37 Reviewed 06/12/2012 12:00 AM DRAIN/INJ JOINT/BURSA W/O US Reviewed 06/12/2012 12:00 AM SYNVISC, Per 1 Mg (2ml) [facility] [address]-34 Reviewed 07/16/2012 12:00 AM Hepatobiliary ductal system imaging with functional assessment Reviewed 07/16/2012 12:00 AM Decadron 8 mg [facility]#[id number] Reviewed 07/16/2012 12:00 AM Depo-Medrol 80mg [place]#[id number] Reviewed 07/16/2012 12:00 AM COMPREHEN METABOLIC PANEL Reviewed 07/16/2012 12:00 AM LIPID PANEL Reviewed 07/16/2012 12:00 AM Flu Injection 3 Years And Above [facility]# [address]-14 RHC Reviewed 08/19/2012 12:00 AM METABOLIC PANEL TOTAL CA Reviewed 12/21/2009 12:[address] ABDOMEN W/O & W/DYE Reviewed 10/02/2012 12:00 AM CHEST X-RAY 2VW FRONTAL&LATL Reviewed 10/09/2012 12:00 AM Decadron 8 mg [facility]#71077817256 Reviewed 10/09/2012 12:00 AM Depo-Medrol 80mg [facility]#42380371934 Reviewed 12/09/2012 12:00 AM CHEST X-RAY 2VW [...] Mg (6ml) [facility] [address]-75 Reviewed 02/26/2013 12:[address] NECK SPINE W/O & W/DYE Reviewed 04/07/2013 12:00 AM INJECT TRIGGER POINTS 3/> Reviewed 04/07/2013 12:00 AM Kenalog per 10Mg [facility]#[address]-62(Srinath) Reviewed 07/21/2013 12:00 AM CHEST X-RAY 2VW FRONTAL&LATL Reviewed 07/21/2013 12:00 AM Decadron 8 mg [facility]# [address]-15 Reviewed 07/21/2013 12:00 AM Depo-Medrol 80 mg [facility]#[address]-28 Reviewed 07/21/2013 12:00 AM Rocephin 500 mg [facility]#9647-5330-30 Reviewed 09/22/2013 12:00 AM CHEST X-RAY 2VW FRONTAL&LATL Returned 10/29/2013 12:00 AM X-RAY EXAM OF ABDOMEN Reviewed 12/08/2013 12:00 AM THER/PROPH/DIAG INJ SC/IM Reviewed 12/08/2013 12:00 AM Decadron, Per 1 Mg [facility]# [address]-36 Reviewed 12/08/2013 12:00 AM Depo-Medrol, Per 80 Mg [facility]#0141-3127-00 Reviewed 12/08/2013 12:00 AM CHEST X-RAY 2VW [...] 8 mg [facility]# [address]-52 Reviewed 01/05/2014 12:00 AM Depo-Medrol 80 mg [facility]#[address]-00 Reviewed 01/05/2014 12:00 AM Rocephin 1 gram [facility]#1274-0321-69 Reviewed 03/15/2010 12:00 AM PROTHROMBIN TIME Reviewed [...] Reviewed 09/28/2010 12:00 AM Kenalog per 10Mg [facility]#[address]-21(Srinath) Reviewed 05/05/2014 12:00 AM DRAIN/INJ JOINT/BURSA W/O US Reviewed 05/05/2014 12:00 AM SYNVISC-ONE, Per 1 Mg (6ml) [facility] [address]-85 Reviewed 05/06/2014 12:00 AM COMPREHEN METABOLIC PANEL [...] Rocephin 500 mg [facility]#[address]-20 Reviewed 07/14/2014 12:00 AM Fluzone MEDICARE Only Reviewed 11/29/2010 12:00 AM INJECT TRIGGER POINTS 3/> Reviewed 11/29/2010 12:00 AM Kenalog per 10Mg [facility]#[address]-56(Srinath) Reviewed 07/14/2014 12:00 AM Decadron injection Reviewed [...] benign prostatic hypertrophy Apr 11 2016 8:23AM Payers Insurance Name Company Name Plan Name Plan Number Policy Number Policy Group Number Start Date Medicare Part A Medicare [facility] [id number] N/A [employer] - [facility] - [place] State Plan [facility] [place] State Plan [id number] Wednesday, 2015 Medicare Part A Medicare - Lab/Xray [id number] N/A [place] [employer] Medicare [employer] [place] [employer] Ins [id number] N/A [place] Medical Assistance [facility] Medical Assistance Prog [id number] N/A Medicare Part B Medicare Of [place] [id number] Friday, February 22, 2008 Medicare Part A Medicare Part A [id number] N/A [facility] - [facility] - Community Plan [facility] Comm [id number] Wednesday, September 23, 2015 History of Encounters Visit Date Visit Type Provider 04/11/2016 Office visit Melecio Wilkinson DO 02/17/2016 Office visit Melecio Jaja DO 01/19/2016 Office visit Melecio Jaja DO 12/20/2015 Office visit Melecio Wilkinson DO 11/21/2015 Office visit Melecio Jaja DO 10/17/2015 Office visit Melecio Jaja DO 09/26/2015 Office visit Melecio Jaja DO 09/07/2015 Office visit Katty CRAIG 08/25/2015 Nurse visit Ktaty CRAIG 08/23/2015 Office visit Melecio Jaja DO [...] MD 12/02/2014 [facility] Platt MD 12/02/2014 [facility] [...] Barrios MD 12/09/2012 Office visit Stephanie Richardson LETTUCE CUTTER 11/26/2012 Office visit Gorge Yo MD 10/30/2012 [...] visit Gorge Yo MD 05/12/2012 [facility] DO 05/11/2012 [facility] DO 03/13/2012 Office visit Gorge Yo MD [...]
--- OUTSIDE RECORDS SUMMARY | 2018-01-22 15:03 | XMS REPORT | CCD ---
Author Author OLIMPIA HEREDIA Organization Unknown Address [address] [place] [address] Care Team Providers Care Improvement Spec Name Role Phone CAMARILLO, CONY DO Attphys CAMARILLO, CONY DO Prisurg Allergies Allergy Code Allergy Type Reaction Status No Known Drug Allergies 0 Drug allergy Active Active Medications Medication Code Dose Units Frequency Route Modification Start Date/Time cloNIDine HCl 0.2MG Oral Tablet 663742 0.2 MILLIGRAMS THREE TIMES A DAY ORAL 01/02/2017 09:49 Prescription Detail 0.2 MILLIGRAMS ORAL THREE TIMES A DAY Levaquin 500MG Oral Tablet 398567 1 TABLET DAILY BY MOUTH 01/02/2017 09:49 Prescription Detail 1 TABLET BY MOUTH DAILY x5 days Lyrica 75MG Oral Capsule 217625 75 MILLIGRAMS TWO TIMES A DAY ORAL 01/02/2017 09:49 Prescription Detail 75 MILLIGRAMS ORAL TWO TIMES A DAY Opdivo 10MG/1ML Intravenous Solution 8387314 1 EACH INTRAVENOUS 01/02/2017 09:49 Prescription Detail 1 EACH INTRAVENOUS Opdivo 10MG/1ML Intravenous Solution 8249050 1 EACH INTRAVENOUS 01/02/2017 09:49 Prescription Detail 1 EACH INTRAVENOUS opdivo 40mg/4ml 0 1 EACH every two weeks INTRAMUSCULAR 01/02/2017 09:49 Prescription Detail 1 EACH INTRAMUSCULAR every two weeks predniSONE 20MG Oral Tablet 373664 1 TABLET DAILY BY MOUTH 01/02/2017 09:49 Prescription Detail Tapering dose: 60mg x3 days, 40mg x3 days, 20mg x3 days, then stop Metoprolol Tartrate 25MG Oral Tablet 363397 12.5 MILLIGRAMS TWO TIMES A DAY BY MOUTH 01/02/2017 09: 47 Prescription Detail 12.5 MILLIGRAMS (Half tablet) BY MOUTH TWO TIMES A DAY Allopurinol 100MG Oral Tablet 061559 1.5 TABLET DAILY ORAL 07/06/2016 15:46 Prescription Detail 1.5 TABLET ORAL DAILY Lipitor 40MG Oral Tablet 831960 40 MILLIGRAMS DAILY ORAL 07/06/2016 15:46 Prescription Detail 40 MILLIGRAMS ORAL DAILY Methocarbamol 750MG Oral Tablet 276954 750 MILLIGRAMS NEEDED EVERY 6 HR ORAL 07/06/2016 15:46 Prescription Detail 750 MILLIGRAMS ORAL NEEDED EVERY 6 HR oxyCODONE HCl 20MG Oral Tablet 7977186 20 MILLIGRAMS NEEDED EVERY 4 HR ORAL 07/06/2016 15:46 Prescription Detail 20 MILLIGRAMS ORAL NEEDED EVERY 4 HR Omeprazole 40MG Oral Capsule, Delayed Release 216028 40 MILLIGRAMS DAILY ORAL 12/02/2014 13:01 Prescription Detail 40 MILLIGRAMS ORAL DAILY Digoxin 0.125MG Oral Tablet 723166 0.125 MILLIGRAMS DAILY ORAL 03/17/2014 15:16 Prescription Detail 0.125 MILLIGRAMS ORAL DAILY Loratadine 10MG Oral Tablet 188890 10 MILLIGRAMS DAILY ORAL 03/17/2014 15:16 Prescription Detail 10 MILLIGRAMS ORAL DAILY Symbicort 160MCG/Actuation-4.5 Inhalation Aerosol Liquid 2458505 1 EACH TWO TIMES A DAY INHALATION 2013 15:16 Prescription Detail 1 EACH INHALATION TWO TIMES A DAY Tamsulosin Hydrochloride 0.4MG Oral Capsule 475849 0.4 MILLIGRAMS DAILY ORAL 03/17/2014 15:16 Prescription Detail 0.4 MILLIGRAMS ORAL DAILY Xarelto 20MG Oral Tablet 2892359 20 MILLIGRAMS DAILY ORAL 03/17/2014 15:16 Prescription Detail 20 MILLIGRAMS ORAL DAILY Zolpidem 10MG Oral Tablet 243074 10 MILLIGRAMS DAILY ORAL 03/17/2014 15:16 Prescription Detail 10 MILLIGRAMS ORAL DAILY Problems Problem Code Start Date Resolved Date Status CHF 18642080 12/31/2016 Active Pulmonary edema 44919214 12/31/2016 Active DM 82973147 12/31/2016 Active Hypertension 03621296 07/06/2016 12/30/2016 Resolved Rotator cuff tear of left shoulder, not specified as traumatic 6013718 07/05/2016 12/30/2016 Resolved Procedures Procedure Code Procedure Type Date CX CHEST [address] 09/19/2016 LACTIC ACID 3145772 SNOM[address] 09/19/2016 CULTURE BLOOD 54752387 SNOMED CT 09/19/2016 CULTURE BLOOD 02307331 [facility] 09/19/2016 COMPREHENSIVE METABOLIC PANEL 220123752 [facility] 2015 CBC W/ AUTO DIFF (RFLX MAN DIFF IF IND) 9466565 [facility] 09/19/2016 ^CBC W/ MANUAL DIFF 20714908 [facility] 09/19/2016 BAN AERO ECLIPSE TREATMENT 84233754 [facility] 09/19/2016 Results COMPREHENSIVE METABOLIC PANEL - Collect Date/Time: 09/19/2016 12:10 Test Name Code Test Result Test Units Test Ref Range GLUCOSE 2345-7 121 MG/DL L=70 H=100 SODIUM 2951-2 137 MEQ/L L=135 H=148 POTASSIUM 2823-3 4.1 MEQ/L L=3.5 H=5.3 CHLORIDE 2075-0 100 MEQ/L L=96 H=110 CO2 2028-9 22 MEQ/L L=22 H=29 BUN 3094-0 30 MG/DL L=8 H=22 CREATININE 2160-0 2.6 MG/DL L=0.6 H=1.6 SGOT/AST 1920-8 11 IU/L L=10 H=40 SGPT/ALT 1742-6 6 IU/L L=8 H=54 ALK PHOS 6768-6 102 IU/L L=35 H=115 TOTAL PROTEIN 2885-2 8.5 G/DL L=5.5 H=8.5 ALBUMIN 1751-7 3.6 G/DL L=3.1 H=5.4 TOTAL BILI 1975-2 1.2 MG/DL L=0.0 H=1.5 CALCIUM 19390-9 9.8 MG/DL L=8.2 H=10.6 AGE 56 yrs GFR NonAA 26 GFR AA 32 eGFR 26 mL/min/1.7 eGFR AA* 32 mL/min/1.7 CBC W/ AUTO DIFF (RFLX MAN DIFF IF IND) - Collect Date/Time: 09/19/2016 12:10 Test Name Code Test Result Test Units Test Ref Range WBC 24066-6 15.5 TH/CMM L=4.5 H=10.8 RBC 789-8 4.42 ML/CMM L=4.70 H=6.10 HGB 718-7 12.0 G/DL L=14.0 H=18.0 HCT 4544-3 37.5 % L=42.0 H=52.0 MCV 85 FL L=81 H=99 MCH 27.1 PG L=27.0 H=33.0 MCHC 32.0 G/DL L=31.0 H=36.0 RDW SD 53 FL L=36 H=50 RDW CV 17.2 % L=0.0 H=14.8 MPV 9.5 FL L=9.3 H=12.5 PLT 777-3 287 TH/CMM L=130 H=440 NRBC# 0.00 TH/CMM L=0.00 H=0.00 NRBC% 0.0 /100WBC L=0.0 H=2.0 %NEUT 84.0 % %LYMP 5.4 % %MONO 8.5 % %EOS 0.4 % %BASO 0.3 % #NEUT 12.97 TH/CMM L=2.10 H=8.20 #LYMP 0.84 TH/CMM L=0.90 H=5.20 #MONO 1.32 TH/CMM L=0.16 H=1.00 #EOS 0.06 TH/CMM L=0.00 H=0.80 #BASO 0.04 TH/CMM L=0.00 H=0.20 SEGS 85 % BANDS 11 % LYMPHS 4 % MANUAL DIFF SEE BELOW N/A MICRO 1+ N/A MACRO 1+ N/A ANISO 2+ N/A LACTIC ACID - Collect Date/Time: 09/19/2016 12:10 Test Name Code Test Result Test Units Test Ref Range LACTIC ACID 2524-7 1.7 mmol/L L=0.5 H=1.6 Function Status Unknown or Not Available. History of Immunizations Immunization Code Date Pneumococcal conjugate PCV 13 133 07/09/2016 influenza, injectable, quadrivalent, preservative free 150 2015 Plan of Treatment Unknown or Not Available. Social History Smoking Status Code Start Date End Date Current every day smoker [id number] Vital Signs Unknown or Not Available. Function Status Unknown or Not Available. Goals Unknown or Not Available. ASSESSMENTS Unknown or Not Available. Health Concerns Section Unknown or Not Available.
--- OUTSIDE RECORDS SUMMARY | 2018-01-22 15:03 | XMS REPORT ---
Author Author Melecio Wilkinson [facility] Address [address] [place] [id number] Care Team Providers Care Gatehouse Attendant Name Role Phone Melecio Wilkinson PCP Unavailable [...] for 30 days Discontinued by Hospitalist at [place] Augmentin Oral Tablet 875-125 mg 11/07/2010 03/05/2011 [...] Date Medicare Part A Medicare Part A [id number] N/A [employer] [place] [employer] Medicare [facility] Ins [phone] N/A [place] Medical Assistance [facility] Medical Assistance Prog [id number] N/A Medicare Part B Medicare Of [place] [id number] Friday, 2008 History of Encounters Visit Date Visit Type Provider 02/17/2015 Office visit Katty CRAIG 02/17/2015 Office visit Melecio Wilkinson DO 01/19/2015 Office visit Katty CRAIG 01/13/2015 Office visit Melecio Wilkinson DO 01/12/2015 Office visit Katty CRAIG 12/16/2014 [facility] Alfa Platt MD 12/14/2014 Voided Melecio Wilkinson DO 12/08/2014 Office visit Melecio Wilkinson DO 12/08/2014 Office visit Alfa Platt MD 12/07/2014 Nurse visit Riri Salazar MD 12/02/2014 [facility] Alfa Platt MD 12/02/2014 [facility] Magi Powers MD 11/29/2014 Voided Katty CRAIG 11/29/2014 [facility] Magi Powers MD 11/11/2014 Office visit Melecio Wilkinson DO 11/11/2014 Office visit Katty CRAIG 10/14/2014 Office visit Katty CRAIG 09/14/2014 Office visit Katty CRAIG 09/08/2014 [facility] Ama Barrios MD 09/07/2014 Office visit Melecio Wilkinson DO 08/16/2014 Nurse visit Katty DURÁNP 07/19/2014 [...] Katty CRAIG 12/18/2013 Office visit Janis Navarrete PRECISION LENS TECHNICIAN 12/08/2013 Office visit Janis Navarrete PRECISION LENS TECHNICIAN 11/25/2013 Office visit Katty CRAIG 10/29/2013 Office visit Melecio Wilkinson DO 09/22/2013 Office visit Janis Navarrete PRECISION LENS TECHNICIAN 07/28/2013 Office visit Katty CRAIG 07/21/2013 Office visit Melecio Wilkinson DO 07/08/2013 Office visit Katty CRAIG 05/06/2013 Office visit Melecio Wilkinson DO 04/07/2013 Office visit Gorge Yo MD 02/26/2013 Office visit Melecio Wilkinson DO 01/29/2013 Office visit Gorge Yo MD 01/06/2013 Office visit Gorge Yo MD 12/09/2012 Office visit Stephanie Richardson PRECISION LENS TECHNICIAN 12/09/2012 [facility] Ama Barrios MD 11/26/2012 Office visit Gorge Yo MD 10/30/2012 [facility] Gorge Yo MD 10/29/2012 Office visit [...] 05/14/2012 Office visit Gorge Yo MD 05/12/2012 [facility] DO 05/11/2012 [facility] DO 03/13/2012 Office visit [...] 03/05/2011 Office visit Melecio Wilkinson DO 02/06/2011 [facility] Gorge Yo MD 01/08/2011 Office visit Melecio Wilkinson DO 12/27/2010 Office visit Gorge Yo MD 11/29/2010 Office visit Gorge Yo MD 11/07/2010 Office visit Meelcio Wilkinson DO 09/28/2010 Office visit Gorge Yo MD 09/05/2010 [facility] Gorge Yo MD 08/28/2010 Office visit [...] MD 03/31/2010 Laboratory Alfonso Camacho MD 03/31/2010 [facility] Alfonso Camacho MD 03/21/2010 Procedures Gorge [...]
--- OUTSIDE RECORDS SUMMARY | 2018-01-22 15:09 | XMS REPORT ---
Author Author Melecio Wilkinson [facility] Address [address] [place] [id number] Care Team Providers Care Lumber Grader Name Role Phone Melecio Wilkinson PCP Unavailable [...] for 30 days Discontinued by Hospitalist at [place] niacin 500 mg oral tablet 10/10/2016 take [...] route every 12 hours for 30 days [place] guerita Amitiza 24 mcg oral capsule 05/03/2016 [...] 12:00 AM Kenalog, Per 10 Mg [facility]#0020-7106-52 Reviewed 06/19/2011 12:00 AM DRAIN/INJ JOINT/BURSA W/O US Reviewed 06/19/2011 12:00 AM Kenalog 40 Mg Im-[facility]#2193-1767-17 Reviewed 08/25/2015 12:00 AM OFFICE/OUTPATIENT VISIT EST Reviewed 08/23/2015 12:00 AM Decadron, Per 1 Mg [facility]# [address]-18 Reviewed 08/23/2015 12:00 AM Depo-Medrol, Per 80 Mg [facility]#[address]-59 Reviewed 09/07/2015 12:00 AM X-RAY EXAM L-S SPINE 10/26 VWS Reviewed 09/07/2015 12:00 AM COMPLETE CBC [...] 08/08/2016 12:00 AM Decadron, Per 1 Mg [facility]# [address]-76 Reviewed 08/08/2016 12:00 AM Depo-Medrol, Per 80 Mg [facility]#[address]-88 Reviewed 01/01/2012 12:00 AM Rocephin 1 gm [facility]#[address]-83 Reviewed 01/16/2012 12:00 AM DRAIN/INJ JOINT/BURSA W/O US Reviewed 01/16/2012 12:00 AM Kenalog per 10Mg [facility]#[address]-88(Srinath) Reviewed 09/26/2016 12:00 AM CHEST X-RAY 2VW [...] AM SYNVISC, Per 1 Mg (2ml) [facility] [address]-42 Reviewed 06/05/2012 12:00 AM DRAIN/INJ JOINT/BURSA W/O US Reviewed 06/05/2012 12:00 AM SYNVISC, Per 1 Mg (2ml) [facility] [address]-29 Reviewed 06/12/2012 12:00 AM DRAIN/INJ JOINT/BURSA W/O US Reviewed 06/12/2012 12:00 AM SYNVISC, Per 1 Mg (2ml) [facility] [address]-37 Reviewed 07/16/2012 12:00 AM Hepatobiliary ductal system imaging with functional assessment Reviewed 07/16/2012 12:00 AM Decadron 8 mg [facility]#99299335484 Reviewed 07/16/2012 12:00 AM Depo-Medrol 80mg [facility]#37576795391 Reviewed 07/16/2012 12:00 AM COMPREHEN METABOLIC PANEL Reviewed 07/16/2012 12:00 AM LIPID PANEL Reviewed 07/16/2012 12:00 AM Flu Injection 3 Years And Above [facility]# [address]-06 RHC Reviewed 08/19/2012 12:00 AM METABOLIC PANEL TOTAL CA Reviewed 12/21/2009 12:[address] ABDOMEN W/O & W/DYE Reviewed 10/02/2012 12:00 AM CHEST X-RAY 2VW FRONTAL&LATL Reviewed 10/09/2012 12:00 AM Decadron 8 mg [facility]#91114093707 Reviewed 10/09/2012 12:00 AM Depo-Medrol 80mg [facility]#65265937875 Reviewed 12/09/2012 12:00 AM CHEST X-RAY 2VW [...] AM SYNVISC-ONE, Per 1 Mg (6ml) [facility] [address]-15 Reviewed 02/26/2013 12:[address] NECK SPINE W/O & W/DYE Reviewed 04/07/2013 12:00 AM INJECT TRIGGER POINTS 3/> Reviewed 04/07/2013 12:00 AM Kenalog per 10Mg [facility]#[address]-27(Srinath) Reviewed 07/21/2013 12:00 AM CHEST X-RAY 2VW FRONTAL&LATL Reviewed 07/21/2013 12:00 AM Decadron 8 mg [facility]# [address]-86 Reviewed 07/21/2013 12:00 AM Depo-Medrol 80 mg [facility]#[address]-87 Reviewed 07/21/2013 12:00 AM Rocephin 500 mg [facility]#6553-7413-47 Reviewed 09/22/2013 12:00 AM CHEST X-RAY 2VW FRONTAL&LATL Reviewed 10/29/2013 12:00 AM X-RAY EXAM OF ABDOMEN Reviewed 12/08/2013 12:00 AM THER/PROPH/DIAG INJ SC/IM Reviewed 12/08/2013 12:00 AM Decadron, Per 1 Mg [facility]# [address]-15 Reviewed 12/08/2013 12:00 AM Depo-Medrol, Per 80 Mg [facility]#6226-7318-64 Reviewed 12/08/2013 12:00 AM CHEST X-RAY 2VW [...] Reviewed 01/05/2014 12:00 AM Decadron 8 mg [facility]# [address]-72 Reviewed 01/05/2014 12:00 AM Depo-Medrol 80 mg [facility]#[address]-60 Reviewed 01/05/2014 12:00 AM Rocephin 1 gram [facility]#2306-2007-14 Reviewed 03/15/2010 12:00 AM PROTHROMBIN TIME Reviewed [...] AM Kenalog per 10Mg [facility]#[address]-82(Srinath) Reviewed 05/05/2014 12:00 AM DRAIN/INJ JOINT/BURSA W/O US Reviewed 05/05/2014 12:00 AM SYNVISC-ONE, Per 1 Mg (6ml) [facility] [address]-54 Reviewed 05/06/2014 12:00 AM COMPREHEN METABOLIC PANEL [...] 11/07/2010 12:00 AM Rocephin 500 mg [facility]#[address]-48 Reviewed 07/14/2014 12:00 AM Fluzone MEDICARE Only Reviewed 11/29/2010 12:00 AM INJECT TRIGGER POINTS 3/> Reviewed 11/29/2010 12:00 AM Kenalog per 10Mg [facility]#[address]-21(Srinath) Reviewed 07/14/2014 12:00 AM Decadron injection Reviewed [...] CVX Pneumococcal 07/09/2016 [facility] Prevnar 13 L02834 Intramuscular Right Deltoid 07/09/2016 07/28/2015 133 History [...] 22 2013 9:25AM Chronic Obstructive Pulmonary Disease b 2013 9:08AM Congestive Heart Failure Oct 29 [...] Number Policy Group Number Start Date Medicare C Medicare RHC [id number] N/A [employer] [place] [employer] [place] [id number] N/A [employer] [place] [employer] Medicare [employer] Ins [id number] N/A [place] Medical Assistance [facility] Medical Assistance Prog [id number] N/A Medicare Part B Medicare Of [place] [id number] Friday, 2008 Medicare Part A Medicare Part A [id number] N/A [facility] - RHC - [facility] Plan [facility] RHC Comm [id number] Wednesday, 2015 [employer] - RHC - [place] State Plan [employer] - RHC [facility] Plan [id number] Wednesday, 2015 Medicare Part A Medicare - Lab/Xray [id number] N/A History of Encounters Visit Date Visit [...] MD 12/02/2014 Hospital Alfa Platt MD 12/02/2014 [facility] Magi Powers MD 11/29/2014 [facility] Magi Powers MD 11/29/2014 Voided Katty CRAIG 11/11/2014 Office visit 11/11/2014 Office visit Katty CRAIG 11/11/2014 Office visit Melecio Jaja DO 10/14/2014 Office visit Katty CRAIG 09/14/2014 Office visit Katty CRAIG 09/08/2014 [facility] Ama Barrios MD 09/07/2014 Office [...] Wilkinson DO 07/08/2013 Office visit Katty [place] CRAIG 05/06/2013 Office visit Melecio Wilkinson DO 04/07/2013 Office visit Gorge Yo MD 02/26/2013 Office visit Melecio Wilkinson DO 01/29/2013 Office visit Gorge Yo MD 01/06/2013 Office visit Gorge Yo MD 12/09/2012 [facility] Ama Barrios MD 12/09/2012 Office visit Stephanie Richardson PAY PER CLICK STRATEGIST 11/26/2012 Office visit Gorge Yo MD 10/30/2012 [facility] Gorge Yo MD 10/29/2012 Office [...] 05/14/2012 Office visit Gorge Yo MD 05/12/2012 [facility] DO 05/11/2012 [facility] DO 03/13/2012 Office visit [...] 03/05/2011 Office visit Melecio Wilkinson DO 02/06/2011 [facility] Gorge Yo MD 01/08/2011 Office visit Melecio Wilkinson DO 12/27/2010 Office visit Gorge Yo MD 11/29/2010 Office visit Gorge Yo MD 11/07/2010 Office visit Melecio Wilkinson DO 09/28/2010 Office visit Gorge Yo MD 09/05/2010 [facility] Gorge Yo MD 08/28/2010 Office visit Gorge Yo MD 08/07/2010 Office visit Janis Navarrete JOLENE 07/25/2010 Office visit Melecio Wilkinson DO 06/27/2010 Office visit Gorge Yo MD 06/14/2010 Office visit Melecio Wilkinson DO 06/06/2010 Laboratory Alfonso Camacho MD 06/01/2010 Office visit Melecio Wilkinson DO 04/17/2010 Office visit Melecio Wilkinson DO 04/06/2010 Office visit Gorge Yo MD 04/02/2010 [facility] Alfonso Camacho MD 03/31/2010 Laboratory Alfonso Camacho MD 03/31/2010 Laboratory Alfonso Camacho MD 03/31/2010 [facility] Alfonso Camacho MD 03/21/2010 Procedures [...]
--- OUTSIDE RECORDS SUMMARY | 2018-01-22 15:15 | XMS REPORT ---
Author Author Melecio Wilkinson [facility] Address [address] [place], [place] [id number] Care Team Providers Care Canine Enforcement Officer Name Role Phone Melecio Wilkinson PCP [...] oxycodone 20 mg oral tablet,oral only,ext.rel.12 hr 03/01/2017 03/31/2017 take 1 tablet (20 mg) by oral route every 8 hours for 30 days oxycodone 20 mg oral tablet 03/01/2017 03/31/2017 take 1 tablet by oral route q6h [...] for 30 days Discontinued by Hospitalist at [place] niacin 500 mg oral tablet 10/10/2016 take [...] HC BMI BSA BMI Percentile O2 Sat(%) 03/11/2017 9:12:00 AM 124 mmHg 76 mmHg [...] 12:00 AM Kenalog, Per 10 Mg [facility]#7005-9113-13 Reviewed 12/07/2014 12:00 AM OFFICE/OUTPATIENT VISIT EST Reviewed 06/19/2011 12:00 AM DRAIN/INJ JOINT/BURSA W/O US Reviewed 06/19/2011 12:00 AM Kenalog 40 Mg [facility]#7469-5565-91 Reviewed 08/25/2015 12:00 AM OFFICE/OUTPATIENT VISIT EST Reviewed 08/23/2015 12:00 AM Decadron, Per 1 Mg [facility]# [address]-11 Reviewed 08/23/2015 12:00 AM Depo-Medrol, Per 80 Mg [facility]#[address]-55 Reviewed 09/07/2015 12:00 AM X-RAY EXAM L-S [...] 12:00 AM Decadron, Per 1 Mg [facility]# [address]-49 Reviewed 10/23/2015 12:00 AM Depo-Medrol, Per 80 Mg [facility]#[address]-94 Reviewed 07/26/2011 12:00 AM X-RAY EXAM OF ABDOMEN Reviewed 11/21/2015 12:00 AM Orthopedics Consultation Reviewed 11/21/2015 12:00 AM Physical Therapy Consultation Reviewed 12/20/2015 12:00 AM EXTREMITY STUDY Reviewed 10/12/2011 12:00 AM EXTREMITY STUDY Reviewed 05/10/2016 12:00 AM CONTRAST X-RAY OF SHOULDER Reviewed 07/09/2016 12:00 AM PNEUMOCOCCAL VACC 13 RIP IM Reviewed 08/08/2016 12:00 AM Decadron, Per 1 Mg [facility]# [address]-01 Reviewed 08/08/2016 12:00 AM Depo-Medrol, Per 80 Mg [facility]#[address]-40 Reviewed 01/01/2012 12:00 AM AIRWAY INHALATION TREATMENT Reviewed 01/01/2012 12:00 AM Rocephin 1 gm [facility]#[address]-67 Reviewed 01/16/2012 12:00 AM DRAIN/INJ JOINT/BURSA W/O US Reviewed 01/16/2012 12:00 AM Kenalog per 10Mg [facility]#[address]-59(Srinath) Reviewed 09/26/2016 12:00 AM CHEST X-RAY 2VW [...] AM SYNVISC, Per 1 Mg (2ml) [facility] [address]-80 Reviewed 06/05/2012 12:00 AM DRAIN/INJ JOINT/BURSA W/O US Reviewed 06/05/2012 12:00 AM SYNVISC, Per 1 Mg (2ml) [facility] [address]-38 Reviewed 06/12/2012 12:00 AM DRAIN/INJ JOINT/BURSA W/O US Reviewed 06/12/2012 12:00 AM SYNVISC, Per 1 Mg (2ml) [facility] [address]-95 Reviewed 07/16/2012 12:00 AM Hepatobiliary ductal system imaging with functional assessment Reviewed 07/16/2012 12:00 AM Decadron 8 mg [facility]#[id number] Reviewed 07/16/2012 12:00 AM Depo-Medrol 80mg [facility]#[id number] Reviewed 07/16/2012 12:00 AM COMPREHEN METABOLIC PANEL Reviewed 07/16/2012 12:00 AM LIPID PANEL Reviewed 07/16/2012 12:00 AM Flu Injection 3 Years And Above [facility]# [address]-56 RHC Reviewed 08/19/2012 12:00 AM METABOLIC PANEL TOTAL CA Reviewed 12/21/2009 12:[address] ABDOMEN W/O & W/DYE Reviewed 10/02/2012 12:00 AM CHEST X-RAY 2VW FRONTAL&LATL Reviewed 10/09/2012 12:00 AM Decadron 8 mg [facility]#[id number] Reviewed 10/09/2012 12:00 AM Depo-Medrol 80mg [facility]#79848029986 Reviewed 12/09/2012 12:00 AM CHEST X-RAY 2VW [...] AM SYNVISC-ONE, Per 1 Mg (6ml) [facility] [address]-65 Reviewed 02/26/2013 12:00 AM Physical Therapy Reviewed 02/26/2013 12:[address] NECK SPINE W/O & W/DYE Reviewed 04/07/2013 12:00 AM INJECT TRIGGER POINTS 3/> Reviewed 04/07/2013 12:00 AM Kenalog per 10Mg [facility]#[address]-81(Srinath) Reviewed 07/21/2013 12:00 AM CHEST X-RAY 2VW FRONTAL&LATL Reviewed 07/21/2013 12:00 AM Decadron 8 mg [facility]# [address]-70 Reviewed 07/21/2013 12:00 AM Depo-Medrol 80 mg [facility]#[address]-67 Reviewed 07/21/2013 12:00 AM Rocephin 500 mg [facility]#9406-1810-08 Reviewed 09/22/2013 12:00 AM CHEST X-RAY 2VW FRONTAL&LATL Reviewed 10/29/2013 12:00 AM X-RAY EXAM OF ABDOMEN Reviewed 12/08/2013 12:00 AM THER/PROPH/DIAG INJ SC/IM Reviewed 12/08/2013 12:00 AM Decadron, Per 1 Mg [facility]# [address]-53 Reviewed 12/08/2013 12:00 AM Depo-Medrol, Per 80 Mg [facility]#4107-3592-20 Reviewed 12/08/2013 12:00 AM CHEST X-RAY 2VW [...] 01/05/2014 12:00 AM Decadron 8 mg [facility]# [address]-97 Reviewed 01/05/2014 12:00 AM Depo-Medrol 80 mg [facility]#[address]-94 Reviewed 01/05/2014 12:00 AM Rocephin 1 gram [facility]#4972-9583-28 Reviewed 03/15/2010 12:00 AM PROTHROMBIN TIME Reviewed [...] Kenalog per 10Mg [facility]#[address]-75(Srinath) Reviewed 05/05/2014 12:00 AM DRAIN/INJ JOINT/BURSA W/O US Reviewed 05/05/2014 12:00 AM SYNVISC-ONE, Per 1 Mg (6ml) [facility] [address]-89 Reviewed 05/06/2014 12:00 AM COMPREHEN METABOLIC PANEL [...] 11/07/2010 12:00 AM Rocephin 500 mg [facility]#[address]-10 Reviewed 07/14/2014 12:00 AM Fluzone MEDICARE Only Reviewed 11/29/2010 12:00 AM INJECT TRIGGER POINTS 3/> Reviewed 11/29/2010 12:00 AM Kenalog per 10Mg [facility]#[address]-31(Srinath) Reviewed 07/14/2014 12:00 AM Decadron injection Reviewed [...] CVX Pneumococcal 07/09/2016 [facility] Prevnar 13 [id number] Intramuscular Right Deltoid 07/09/2016 07/28/2015 133 History [...] 2012 9:37AM Degeneration of lumbar intervertebral disc Fe2012 8:51AM Pain in joint; Knee Left Oct [...] Number Start Date Medicare RHC Medicare RHC [id number] N/A [facility] [id number] N/A [facility] Medicare [facility] Ins [phone] N/A [place] [facility] [place] Prog [id number] N/A Medicare Part B Medicare [place] [id number] Friday, 2008 Medicare Part A Medicare Part A [id number] N/A [facility] Comm [id number] Wednesday, 2015 [employer] - RHC - [place] State Plan [facility] State Plan [id number] Wednesday, 2015 Medicare Part A Medicare - Lab/Xray [id number] N/A History of Encounters Visit Date Visit Type Provider 03/11/2017 Office visit Melecio Jaja DO 02/22/2017 Office visit Melecio Jaja DO 02/05/2017 Office visit Melecio Jaja DO 2017 Hospital Rasta Mckeno MD 01/09/2017 Office visit Melecio Jaja DO 01/01/2017 [facility] Seth Palafoxzion DO 12/31/2016 [facility] Rasta Mckeon MD 12/31/2016 Hospital Ama [...] DO 01/12/2015 Office visit Katty CRAIG 12/16/2014 [facility] Alfa Platt MD 12/14/2014 Voided Melecio Willhite DO 12/08/2014 Office visit Alfa Platt MD 12/08/2014 Office visit Melecio Jaja DO 12/07/2014 Nurse visit Riri Salazar MD 12/02/2014 [facility] Alfa Platt MD 12/02/2014 [facility] Magi Gio STRONG 11/29/2014 [facility] Gio STRONG 11/29/2014 Voided Katty CRAIG 11/11/2014 Office visit 11/11/2014 Office visit Katty CRAIG 11/11/2014 Office visit Melecio Jaja DO 10/14/2014 Office visit Katty CRAIG 09/14/2014 Office visit Katty CRAIG 09/08/2014 [facility] Ama Barrios MD 09/07/2014 Office visit Melecio Jaja DO 08/16/2014 Nurse visit Katty CRAIG 07/19/2014 Office visit Katty CRAIG 07/14/2014 Office visit Melecio Jaja DO 06/21/2014 Office visit Katty CRAIG 05/20/2014 Office visit Melecio Jaja DO 05/14/2014 Office visit Melecio Jaja DO 05/05/2014 Office visit Katty Jefferson LABOR SPECIALIST 04/26/2014 Office visit Katty Jefferson LABOR SPECIALIST 03/24/2014 Office visit Katty Jefferson LABOR SPECIALIST 02/24/2014 Office visit Katty Jefferson LABOR SPECIALIST 01/05/2014 Office visit Melecio Jaja DO 12/23/2013 Office visit Katty Jefferson LABOR SPECIALIST 12/23/2013 Office visit Melecio Jaja DO 12/18/2013 Office visit Janis Navarrete DEPARTMENT MGR 12/08/2013 Office visit Janis Navarrete DEPARTMENT MGR 11/25/2013 Office visit Katty Jefferson LABOR SPECIALIST 10/29/2013 Office visit Melecio Wilkinson DO 09/22/2013 Office visit Janis Navarrete DEPARTMENT MGR 07/28/2013 Office visit Katty Jefferson LABOR SPECIALIST 07/21/2013 Office visit Melecio Wilkinson DO 07/08/2013 Office visit Katty CRAIG 05/06/2013 Office visit Melecio Wilkinson DO 04/07/2013 Office visit Gorge Yo MD 02/26/2013 Office visit Melecio Wilkinson DO 01/29/2013 Office visit Gorge Yo MD 01/06/2013 Office visit Gorge Yo MD 12/09/2012 [facility] Ama Barrios MD 12/09/2012 Office visit Stephanie Richardson DEPARTMENT MGR 11/26/2012 Office visit Gorge Yo MD 10/30/2012 [facility] Gorge Yo MD 10/29/2012 Office visit [...] 05/14/2012 Office visit Gorge Yo MD 05/12/2012 [facility] Pat Llanosmfield DO 05/11/2012 [facility] Pat Kirby DO 03/13/2012 Office visit Gorge Yo MD 02/05/2012 Office visit Melecio Wilkinson DO 01/31/2012 Office visit oGrge Yo MD 01/16/2012 Office visit Gorge Yo [...] 03/05/2011 Office visit Melecio Wilkinson DO 02/06/2011 [facility] Gorge Yo MD 01/08/2011 Office visit Melecio Wilkinson DO 12/27/2010 Office visit Gorge Yo MD 11/29/2010 Office visit Gorge Yo MD 11/07/2010 Office visit Melecio Wilkinson DO 09/28/2010 Office visit Gorge Yo MD 09/05/2010 [facility] Gorge Yo MD 08/28/2010 Office visit [...]
--- OUTSIDE RECORDS SUMMARY | 2018-01-22 15:20 | XMS REPORT ---
Author Author Melecio Wilkinson [facility] Address [address] [place] [phone] Care Team Providers Care Entry Processor Name Role Phone Melecio Wilkinson PCP Unavailable [...] 30 days oxycodone 20 mg oral tablet 11/21/2015 12/21/2015 take 1 tablet by oral route every 4 to 6 hours for 30 days pain lisinopril 20 mg oral tablet 12/08/2015 TAKE 1 TABLET BY MOUTH DAILY gentamicin 0.3 % ophthalmic drops 12/13/2015 instill 2 drops into affected eye(s) by ophthalmic route 4 times a day Name Start Date Expiration [...] for 30 days Discontinued by Hospitalist at [place] Augmentin 875-125 mg oral tablet 11/07/2010 03/05/2011 [...] 07/11/2015 12:00 AM Kenalog, Per 10 Mg [facility]#1747-8328-21 Reviewed 06/19/2011 12:00 AM DRAIN/INJ JOINT/BURSA W/O US Reviewed 06/19/2011 12:00 AM Kenalog 40 Mg [facility]#0088-9188-37 Reviewed 08/25/2015 12:00 AM OFFICE/OUTPATIENT VISIT EST Reviewed 08/23/2015 12:00 AM Decadron, Per 1 Mg [facility]# [address]-65 Reviewed 08/23/2015 12:00 AM Depo-Medrol, Per 80 Mg [facility]#[address]-75 Reviewed 09/07/2015 12:00 AM X-RAY EXAM L-S [...] Rocephin 1 gm [facility]#[address]-04 Reviewed 01/16/2012 12:00 AM DRAIN/INJ JOINT/BURSA W/O US Reviewed 01/16/2012 12:00 AM Kenalog per 10Mg [facility]#[address]-33(Srinath) Reviewed 02/05/2012 12:[address] ABDOMEN W/O & W/DYE Reviewed 02/05/2012 12:[address] PELVIS W/O & W/DYE Reviewed 05/29/2012 12:00 AM DRAIN/INJ JOINT/BURSA W/O US Reviewed 05/29/2012 12:00 AM SYNVISC, Per 1 Mg (2ml) [facility] [address]-50 Reviewed 06/05/2012 12:00 AM DRAIN/INJ JOINT/BURSA W/O US Reviewed 06/05/2012 12:00 AM SYNVISC, Per 1 Mg (2ml) [facility] [address]-10 Reviewed 06/12/2012 12:00 AM DRAIN/INJ JOINT/BURSA W/O US Reviewed 06/12/2012 12:00 AM SYNVISC, Per 1 Mg (2ml) [facility] [address]-25 Reviewed 07/16/2012 12:00 AM Hepatobiliary ductal system imaging with functional assessment Reviewed 07/16/2012 12:00 AM Decadron 8 mg [facility]#[id number] Reviewed 07/16/2012 12:00 AM Depo-Medrol 80mg [facility]#39480493334 Reviewed 07/16/2012 12:00 AM COMPREHEN METABOLIC PANEL Reviewed 07/16/2012 12:00 AM LIPID PANEL Reviewed 07/16/2012 12:00 AM Flu Injection 3 Years And Above [facility]# [address]-32 RHC Reviewed 08/19/2012 12:00 AM METABOLIC PANEL TOTAL CA Reviewed 12/21/2009 12:[address] ABDOMEN W/O & W/DYE Reviewed 10/02/2012 12:00 AM CHEST X-RAY 2VW FRONTAL&LATL Reviewed 10/09/2012 12:00 AM Decadron 8 mg [facility]#[id number] Reviewed 10/09/2012 12:00 AM Depo-Medrol 80mg [facility]#19946792505 Reviewed 12/09/2012 12:00 AM CHEST X-RAY 2VW [...] 1 Mg (6ml) [facility] [address]-29 Reviewed 02/26/2013 12:[address] NECK SPINE W/O & W/DYE Reviewed 04/07/2013 12:00 AM INJECT TRIGGER POINTS 3/> Reviewed 04/07/2013 12:00 AM Kenalog per 10Mg [facility]#[address]-83(Srinath) Reviewed 07/21/2013 12:00 AM CHEST X-RAY 2VW FRONTAL&LATL Reviewed 07/21/2013 12:00 AM Decadron 8 mg [facility]# [address]-74 Reviewed 07/21/2013 12:00 AM Depo-Medrol 80 mg [facility]#[address]-27 Reviewed 07/21/2013 12:00 AM Rocephin 500 mg [facility]#6960-8185-63 Reviewed 09/22/2013 12:00 AM CHEST X-RAY 2VW FRONTAL&LATL Returned 10/29/2013 12:00 AM X-RAY EXAM OF ABDOMEN Reviewed 12/08/2013 12:00 AM THER/PROPH/DIAG INJ SC/IM Reviewed 12/08/2013 12:00 AM Decadron, Per 1 Mg [facility]# [address]-63 Reviewed 12/08/2013 12:00 AM Depo-Medrol, Per 80 Mg [facility]#2407-[address]-42 Reviewed 12/08/2013 12:00 AM CHEST X-RAY 2VW [...] Decadron 8 mg [facility]# [address]-86 Reviewed 01/05/2014 12:00 AM Depo-Medrol 80 mg [facility]#[address]-89 Reviewed 01/05/2014 12:00 AM Rocephin 1 gram [facility]#9879-6640-57 Reviewed 03/15/2010 12:00 AM PROTHROMBIN TIME Reviewed [...] Kenalog per 10Mg [facility]#[address]-29(Srinath) Reviewed 05/05/2014 12:00 AM DRAIN/INJ JOINT/BURSA W/O US Reviewed 05/05/2014 12:00 AM SYNVISC-ONE, Per 1 Mg (6ml) [facility] [address]-45 Reviewed 05/06/2014 12:00 AM COMPREHEN METABOLIC PANEL [...] Rocephin 500 mg [facility]#[address]-32 Reviewed 07/14/2014 12:00 AM Fluzone MEDICARE Only Reviewed 11/29/2010 12:00 AM INJECT TRIGGER POINTS 3/> Reviewed 11/29/2010 12:00 AM Kenalog per 10Mg [facility]#[address]-21(Srinath) Reviewed 07/14/2014 12:00 AM Decadron injection Reviewed [...] Date Medicare Part A Medicare Part A [id number] N/A [employer] [place] [employer] [place] [id number] Wednesday, 2015 [facility] - RHC - [facility] Plan [facility] RHC Comm [id number] Wednesday, 2015 [place] Life Medicare [facility] Life Ins [id number] N/A [place] Medical Assistance [facility] Medical Assistance Prog [id number] N/A Medicare Part B Medicare Of [place] [id number] Friday, 2008 History of Encounters Visit Date [...] MD 12/02/2014 Hospital Magi Powers MD 11/29/2014 [facility] [...] Wilkinson DO 09/22/2013 Office visit Janis Landon BANKING OFFICER 07/28/2013 Office visit Katty Jefferson KIARA 07/21/2013 Office visit Melecio Wilkinson DO 07/08/2013 Office visit Katty Palma oRnny CRAIG 05/06/2013 Office visit Melecio Wilkinson DO 04/07/2013 Office visit Gorge Yo MD 02/26/2013 Office visit Melecio Wilkinson DO 01/29/2013 Office visit Gorge Yo MD 01/06/2013 Office visit Gorge Yo MD 12/09/2012 [facility] Ama Barrios MD 12/09/2012 Office visit Stephanie Richardson BANKING OFFICER 11/26/2012 Office visit Gorge Yo MD [...] Office visit Gorge Yo MD 05/12/2012 [facility] DO 05/11/2012 [facility] 03/13/2012 Office visit Gorge Yo [...]
[2018-01-22] MEDS: ceFAZolin INJECTION 1,000 MG in NS (IVPB) 100 ML IV SCH ×2 (15:21→22:10)
--- OUTSIDE RECORDS SUMMARY | 2018-01-22 15:25 | XMS REPORT ---
Author Author Melecio Wilkinson [facility] Address [address] [place], [place] [id number] Care Team Providers Care Business Administration Professor Name Role Phone Melecio Wilkinson PCP [...] for 30 days Discontinued by Hospitalist at [place] niacin 500 mg oral tablet 10/10/2016 take [...] 07/11/2015 12:00 AM Kenalog, Per 10 Mg [facility]#3859-4585-62 Reviewed 12/07/2014 12:00 AM OFFICE/OUTPATIENT VISIT EST Reviewed 06/19/2011 12:00 AM DRAIN/INJ JOINT/BURSA W/O US Reviewed 06/19/2011 12:00 AM Kenalog 40 Mg Im-[facility]#8120-0798-61 Reviewed 08/25/2015 12:00 AM OFFICE/OUTPATIENT VISIT EST Reviewed 08/23/2015 12:00 AM Decadron, Per 1 Mg [facility]# [address]-21 Reviewed 08/23/2015 12:00 AM Depo-Medrol, Per 80 Mg [facility]#[address]-25 Reviewed 09/07/2015 12:00 AM X-RAY EXAM L-S [...] 10/23/2015 12:00 AM Decadron, Per 1 Mg [facility]# [address]-74 Reviewed 10/23/2015 12:00 AM Depo-Medrol, Per 80 Mg [facility]#[address]-57 Reviewed 07/26/2011 12:00 AM X-RAY EXAM OF ABDOMEN Reviewed 11/21/2015 12:00 AM Orthopedics Consultation Reviewed 11/21/2015 12:00 AM Physical Therapy Consultation Reviewed 12/20/2015 12:00 AM EXTREMITY STUDY Reviewed 10/12/2011 12:00 AM EXTREMITY STUDY Reviewed 05/10/2016 12:00 AM CONTRAST X-RAY OF SHOULDER Reviewed 07/09/2016 12:00 AM PNEUMOCOCCAL VACC 13 RIP IM Reviewed 08/08/2016 12:00 AM Decadron, Per 1 Mg [facility]# [address]-23 Reviewed 08/08/2016 12:00 AM Depo-Medrol, Per 80 Mg [facility]#[address]-49 Reviewed 01/01/2012 12:00 AM AIRWAY INHALATION TREATMENT Reviewed 01/01/2012 12:00 AM Rocephin 1 gm [facility]#[address]-73 Reviewed 01/16/2012 12:00 AM DRAIN/INJ JOINT/BURSA W/O US Reviewed 01/16/2012 12:00 AM Kenalog per 10Mg Im-[facility]#[address]-53(Srinath) Reviewed 09/26/2016 12:00 AM CHEST X-RAY 2VW [...] 12:00 AM SYNVISC, Per 1 Mg (2ml) [facility] [address]-91 Reviewed 06/05/2012 12:00 AM DRAIN/INJ JOINT/BURSA W/O US Reviewed 06/05/2012 12:00 AM SYNVISC, Per 1 Mg (2ml) [facility] [address]-87 Reviewed 06/12/2012 12:00 AM DRAIN/INJ JOINT/BURSA W/O US Reviewed 06/12/2012 12:00 AM SYNVISC, Per 1 Mg (2ml) [facility] [address]-16 Reviewed 06/06/2017 12:00 AM Decadron 4mg Injection Reviewed 06/06/2017 12:00 AM Depo-Medrol 40mg Injection Reviewed 06/06/2017 12:[address] ABD & PELV 1/> REGNS Reviewed 07/16/2012 12:00 AM Hepatobiliary ductal system imaging with functional assessment Reviewed 07/16/2012 12:00 AM Decadron 8 mg [facility]#[id number] Reviewed 07/16/2012 12:00 AM Depo-Medrol 80mg [facility]#[id number] Reviewed 07/16/2012 12:00 AM COMPREHEN METABOLIC PANEL Reviewed 07/16/2012 12:00 AM LIPID PANEL Reviewed 07/16/2012 12:00 AM Flu Injection 3 Years And Above [facility]# [address]-54 RHC Reviewed 08/19/2012 12:00 AM METABOLIC PANEL TOTAL CA Reviewed 12/21/2009 12:[address] ABDOMEN W/O & W/DYE Reviewed 10/02/2012 12:00 AM CHEST X-RAY 2VW FRONTAL&LATL Reviewed 10/09/2012 12:00 AM Decadron 8 mg [facility]#[id number] Reviewed 10/09/2012 12:00 AM Depo-Medrol 80mg [facility]#98298504045 Reviewed 12/09/2012 12:00 AM CHEST X-RAY 2VW [...] 12:00 AM SYNVISC-ONE, Per 1 Mg (6ml) [facility] [address]-50 Reviewed 02/26/2013 12:00 AM Physical Therapy Reviewed 02/26/2013 12:[address] NECK SPINE W/O & W/DYE Reviewed 04/07/2013 12:00 AM INJECT TRIGGER POINTS 3/> Reviewed 04/07/2013 12:00 AM Kenalog per 10Mg Im-[facility]#[address]-71(Srinath) Reviewed 07/21/2013 12:00 AM CHEST X-RAY 2VW FRONTAL&LATL Reviewed 07/21/2013 12:00 AM Decadron 8 mg [facility]# [address]-63 Reviewed 07/21/2013 12:00 AM Depo-Medrol 80 mg [facility]#[address]-06 Reviewed 07/21/2013 12:00 AM Rocephin 500 mg [facility]#2678-2627-42 Reviewed 09/22/2013 12:00 AM CHEST X-RAY 2VW FRONTAL&LATL Reviewed 10/29/2013 12:00 AM X-RAY EXAM OF ABDOMEN Reviewed 12/08/2013 12:00 AM THER/PROPH/DIAG INJ SC/IM Reviewed 12/08/2013 12:00 AM Decadron, Per 1 Mg [facility]# [address]-14 Reviewed 12/08/2013 12:00 AM Depo-Medrol, Per 80 Mg [facility]#0508-7176-15 Reviewed 12/08/2013 12:00 AM CHEST X-RAY 2VW [...] Reviewed 01/05/2014 12:00 AM Decadron 8 mg [facility]# [address]-89 Reviewed 01/05/2014 12:00 AM Depo-Medrol 80 mg [facility]#[address]-86 Reviewed 01/05/2014 12:00 AM Rocephin 1 gram [facility]#4573-0000-30 Reviewed 03/15/2010 12:00 AM PROTHROMBIN TIME Reviewed [...] 09/28/2010 12:00 AM Kenalog per 10Mg [facility]#[address]-73(Srinath) Reviewed 05/05/2014 12:00 AM DRAIN/INJ JOINT/BURSA W/O US Reviewed 05/05/2014 12:00 AM SYNVISC-ONE, Per 1 Mg (6ml) [facility] [address]-06 Reviewed 05/06/2014 12:00 AM COMPREHEN METABOLIC PANEL [...] Reviewed 11/07/2010 12:00 AM Rocephin 500 mg [facility]#[address]-36 Reviewed 07/14/2014 12:00 AM Fluzone MEDICARE Only Reviewed 11/29/2010 12:00 AM INJECT TRIGGER POINTS 3/> Reviewed 11/29/2010 12:00 AM Kenalog per 10Mg [facility]#[address]-57(Srinath) Reviewed 07/14/2014 12:00 AM Decadron injection Reviewed [...] CVX Pneumococcal 07/09/2016 Emily DOHERTY Prevnar 13 [id number] Intramuscular Right Deltoid 07/09/2016 07/28/2015 133 History [...] Number Start Date Medicare RHC Medicare RHC [id number] N/A [employer] [place] [employer] [place] [id number] N/A [place] [employer] [place] [employer] Ins [id number] N/A [place] Medical Assistance [facility] Medical Assistance Prog [id number] N/A Medicare Part B Medicare Of [place] [id number] Friday, 2008 Medicare Part A Medicare Part A [id number] N/A [facility] - RHC - Community Plan [facility] RHC Comm [id number] Wednesday, 2015 [employer] - [place] State [place] [employer] [place] [id number] Wednesday, 2015 Medicare Part A Medicare - Lab/Xray [id number] N/A History of Encounters Visit Date Visit Type Provider 06/06/2017 Office visit Melecio Wilkinson DO 04/03/2017 Office visit Melecio Wilkinson DO 03/28/2017 Office visit Meelcio Wilkinson DO 03/11/2017 Office visit Melecio Wilkinson DO 03/05/2017 Hospital Ama Barrios MD 02/22/2017 Office visit Melecio Wilkinson DO 02/05/2017 Office visit Melecio Wilkinson DO 2017 [facility] Rasta Mckeon MD 2017 Hospital Ama Barrios MD 01/09/2017 Office visit Melecio Wilkinson DO 01/01/2017 [facility] Seth Devlin DO 12/31/2016 [facility] Rasta Mckeon MD 12/31/2016 [facility] Ama Barrios MD 12/21/2016 Office visit Melecio Wilkinson DO 11/20/2016 Office visit Melecio Wilkinson DO 11/05/2016 Office visit Melecio Wilkinson DO 10/23/2016 Office visit Melecio Wilkinson DO 10/10/2016 Office visit Melecio Jjaa DO 09/26/2016 Office visit Melecio Jaja DO [...] MD 12/02/2014 Hospital Alfa Platt MD 12/02/2014 [facility] Magi Powers MD 11/29/2014 [facility] Magi Powers MD 11/29/2014 Voided Katty CRAIG 11/11/2014 Office visit 11/11/2014 Office visit Katty CRAIG 11/11/2014 Office visit Melecio Willhite DO 10/14/2014 Office visit Katty CRAIG 09/14/2014 Office visit Katty CRAIG 09/08/2014 [facility] Ama Barrios MD 09/07/2014 Office visit Melecio Jaja DO 08/16/2014 Nurse visit Katty CRAIG 07/19/2014 Office visit Katty CRAIG 07/14/2014 Office visit Melecio Jaja DO 06/21/2014 Office visit Katty CRAIG 05/20/2014 Office visit Melecio Jaja DO 05/14/2014 Office visit Melecio Jaja DO 05/05/2014 Office visit Ktaty CRAIG 04/26/2014 Office visit Katty CRAIG 03/24/2014 Office visit Katty CRAIG 02/24/2014 Office visit Katty CRAIG 01/05/2014 Office visit Melecio Jaja DO 12/23/2013 Office visit Katty CRAIG 12/23/2013 Office visit Melecio Wilkinson DO 12/18/2013 Office visit Janis Navarrete APRN 12/08/2013 Office visit Janis Navarrete APRN 11/25/2013 Office visit Katty CRAIG 10/29/2013 Office visit Melecio Wilkinson DO 09/22/2013 Office visit Janis Navarrete GAUGE AND INSTRUMENT INSPECTOR 07/28/2013 Office visit Katty CRAIG 07/21/2013 Office visit Melecio Wilkinson DO 07/08/2013 Office visit Katty CRAIG 05/06/2013 Office visit Melecio Wilkinson DO 04/07/2013 Office visit Gorge Yo MD 02/26/2013 Office visit Melecio Wilkinson DO 01/29/2013 Office visit Gorge Yo MD 01/06/2013 Office visit Gorge Yo MD 12/09/2012 [facility] Ama Barrios MD 12/09/2012 Office visit Stephanie Richardson GAUGE AND INSTRUMENT INSPECTOR 11/26/2012 Office visit Gorge Yo MD 10/30/2012 [facility] Gorge Yo MD 10/29/2012 Office [...] 05/14/2012 Office visit Gorge Yo MD 05/12/2012 [facility] DO 05/11/2012 [facility] DO 03/13/2012 Office visit Gorge Yo MD [...] 09/28/2010 Office visit Gorge Yo MD 09/05/2010 [facility] Gorge Yo MD 08/28/2010 Office visit Gorge Yo MD 08/07/2010 Office visit Janis Navarrete APRN 07/25/2010 Office visit Melecio Wilkinson DO 06/27/2010 Office visit Gorge Yo MD 06/14/2010 Office visit Melecio Wilkinson DO 06/06/2010 Laboratory Alfonso Camacho MD 06/01/2010 Office visit Melecio Wilkinson DO 04/17/2010 Office visit Melecio Wilkinson DO 04/06/2010 Office visit Gorge Yo MD 04/02/2010 [facility] Alfonso Camacho MD 03/31/2010 Laboratory Alfonso Camacho MD 03/31/2010 Laboratory Alfonso Camacho MD 03/31/2010 [facility] Alfonso Camacho MD 03/21/2010 Procedures [...]
--- OUTSIDE RECORDS SUMMARY | 2018-01-22 15:30 | XMS REPORT ---
Author Author Melecio Wilkinson [facility] Address [address] [place] [id number] Care Team Providers Care Desk Director Name Role Phone Melecio Wilkinson PCP Unavailable [...] for 30 days Discontinued by Hospitalist at [place] Augmentin 875-125 mg oral tablet 11/07/2010 03/05/2011 [...] route every 12 hours for 30 days Floyd stoned Problem List Description Status Onset SI [...] Kenalog, Per 10 Mg [facility]#4397-9389-09 Reviewed 06/19/2011 12:00 AM DRAIN/INJ JOINT/BURSA W/O US Reviewed 06/19/2011 12:00 AM Kenalog 40 Mg Im-Nd#6279-7915-73 Reviewed 08/25/2015 12:00 AM OFFICE/OUTPATIENT VISIT EST Reviewed 08/23/2015 12:00 AM Decadron, Per 1 Mg [facility]# [address]-42 Reviewed 08/23/2015 12:00 AM Depo-Medrol, Per 80 Mg [facility]#[address]-66 Reviewed 09/07/2015 12:00 AM X-RAY EXAM L-S [...] AM Rocephin 1 gm [facility]#[address]-06 Reviewed 01/16/2012 12:00 AM DRAIN/INJ JOINT/BURSA W/O US Reviewed 01/16/2012 12:00 AM Kenalog per 10Mg [facility][Note 3]#[address]-92(Srinath) Reviewed 02/05/2012 12:[address] ABDOMEN W/O & W/DYE Reviewed 02/05/2012 12:[address] PELVIS W/O & W/DYE Reviewed 05/29/2012 12:00 AM DRAIN/INJ JOINT/BURSA W/O US Reviewed 05/29/2012 12:00 AM SYNVISC, Per 1 Mg (2ml) [facility] [address]-99 Reviewed 06/05/2012 12:00 AM DRAIN/INJ JOINT/BURSA W/O US Reviewed 06/05/2012 12:00 AM SYNVISC, Per 1 Mg (2ml) [facility] [address]-44 Reviewed 06/12/2012 12:00 AM DRAIN/INJ JOINT/BURSA W/O US Reviewed 06/12/2012 12:00 AM SYNVISC, Per 1 Mg (2ml) [facility] [address]-36 Reviewed 07/16/2012 12:00 AM Hepatobiliary ductal system imaging with functional assessment Reviewed 07/16/2012 12:00 AM Decadron 8 mg [facility]#23346847351 Reviewed 07/16/2012 12:00 AM Depo-Medrol 80mg [facility]#97151955197 Reviewed 07/16/2012 12:00 AM COMPREHEN METABOLIC PANEL Reviewed 07/16/2012 12:00 AM LIPID PANEL Reviewed 07/16/2012 12:00 AM Flu Injection 3 Years And Above [facility]# [address]-15 RHC Reviewed 08/19/2012 12:00 AM METABOLIC PANEL TOTAL CA Reviewed 12/21/2009 12:[address] ABDOMEN W/O & W/DYE Reviewed 10/02/2012 12:00 AM CHEST X-RAY 2VW FRONTAL&LATL Reviewed 10/09/2012 12:00 AM Decadron 8 mg [facility]#55343910447 Reviewed 10/09/2012 12:00 AM Depo-Medrol 80mg [facility]#48791421716 Reviewed 12/09/2012 12:00 AM CHEST X-RAY 2VW [...] Per 1 Mg (6ml) [facility] [address]-91 Reviewed 02/26/2013 12:[address] NECK SPINE W/O & W/DYE Reviewed 04/07/2013 12:00 AM INJECT TRIGGER POINTS 3/> Reviewed 04/07/2013 12:00 AM Kenalog per 10Mg [facility][Note 3]#[address]-50(Srinath) Reviewed 07/21/2013 12:00 AM CHEST X-RAY 2VW FRONTAL&LATL Reviewed 07/21/2013 12:00 AM Decadron 8 mg [facility]# [address]-38 Reviewed 07/21/2013 12:00 AM Depo-Medrol 80 mg [facility]#[address]-06 Reviewed 07/21/2013 12:00 AM Rocephin 500 mg [facility]#5139-8284-73 Reviewed 09/22/2013 12:00 AM CHEST X-RAY 2VW FRONTAL&LATL Returned 10/29/2013 12:00 AM X-RAY EXAM OF ABDOMEN Reviewed 12/08/2013 12:00 AM THER/PROPH/DIAG INJ SC/IM Reviewed 12/08/2013 12:00 AM Decadron, Per 1 Mg [facility]# [address]-51 Reviewed 12/08/2013 12:00 AM Depo-Medrol, Per 80 Mg [facility]#3647-7099-66 Reviewed 12/08/2013 12:00 AM CHEST X-RAY 2VW [...] AM Decadron 8 mg [facility]# [address]-13 Reviewed 01/05/2014 12:00 AM Depo-Medrol 80 mg [facility]#[address]-48 Reviewed 01/05/2014 12:00 AM Rocephin 1 gram [place]#9004-3128-48 Reviewed 03/15/2010 12:00 AM PROTHROMBIN TIME Reviewed [...] 10Mg [facility][Note 3]#[address]-58(Srinath) Reviewed 05/05/2014 12:00 AM DRAIN/INJ JOINT/BURSA W/O US Reviewed 05/05/2014 12:00 AM SYNVISC-ONE, Per 1 Mg (6ml) [facility] [address]-21 Reviewed 05/06/2014 12:00 AM COMPREHEN METABOLIC PANEL [...] AM Rocephin 500 mg [facility]#[address]-19 Reviewed 07/14/2014 12:00 AM Fluzone MEDICARE Only Reviewed 11/29/2010 12:00 AM INJECT TRIGGER POINTS 3/> Reviewed 11/29/2010 12:00 AM Kenalog per 10Mg [facility][Note 3]#[address]-82(Srinath) Reviewed 07/14/2014 12:00 AM Decadron injection Reviewed [...] 12.50 g/dLHCT 39.80 %MCV 95.0 fLMCH 30.0 pgHC 31.40 g/dLRDW SD 58 RDW CV 16.50 [...] CVX Pneumococcal 07/09/2016 Emily [facility] Prevnar 13 [id number] Intramuscular Right Deltoid 07/09/2016 07/28/2015 133 History [...] Start Date Medicare Part A Medicare RHC [id number] N/A [facility] [place] [facility] [place] [id number] Wednesday, 2015 Medicare Part A Medicare - Lab/Xray [id number] N/A [facility] [id number] N/A [employer] [place] [employer] [place] [employer] Ins [id number] N/A [place] Medical [place] Prog [id number] N/A Medicare Part B Medicare Of [place] [id number] Friday, February 22, 2008 Medicare Part A Medicare Part A [id number] N/A [facility] [place] Comm [id number] Wednesday, September 23, 2015 History of Encounters Visit Date Visit Type Provider 07/09/2016 Office visit Melecio Jaja DO 07/06/2016 [facility] David Paul MD 06/07/2016 Office visit Melecio Jaja DO [...] 12/07/2014 Nurse visit Riri Salazar MD 12/02/2014 [facility] Alfa Platt MD 12/02/2014 [facility] Magi Powers MD 11/29/2014 [facility] Magi Powers MD 11/29/2014 Voided Katty CRAIG 11/11/2014 Office visit 11/11/2014 Office visit Katyt CRAIG 11/11/2014 Office visit Melecio Wilkinson DO [...] Barrios MD 12/09/2012 Office visit Stephanie Richardson CLOTHING MANAGER 11/26/2012 Office visit Gorge Yo MD [...] 05/14/2012 Office visit Gorge Yo MD 05/12/2012 [facility] DO 05/11/2012 [facility] DO 03/13/2012 Office visit Gorge Yo MD 02/05/2012 Office visit Melecio Wilkinson DO 01/31/2012 Office visit Gorge Yo MD 01/16/2012 Office visit Gorge Yo MD 01/01/2012 Office visit Melecio Wilkinson DO 11/16/2011 Office visit Gorge Yo MD 10/05/2011 Office visit Gorge Yo MD 10/01/2011 Office visit Janis Navarrete CLOTHING MANAGER 09/06/2011 Office visit Gorge Yo MD [...]
[2018-01-22 15:35] VITALS: BP 141/86
--- OUTSIDE RECORDS SUMMARY | 2018-01-22 15:36 | XMS REPORT ---
Author Author Melecio Wilkinson [facility] Address [address] [place], [place] [id number] Care Team Providers Care Double End Sewer Name Role Phone Melecio Wilkinson PCP Melecio [...] by topical route 2 times per day Symproic 0.2 mg oral tablet 11/14/2017 11/28/2017 take 1 tablet (0.2 mg) by oral route once daily for 14 days oxycodone 20 mg oral tablet 11/21/2017 12/21/2017 take 1 tablet by oral route q6h prn for 30 days oxycodone 30 mg oral tablet,oral only,ext.rel.12 hr 11/21/2017 12/21/2017 take 1 tablet (30 mg) by oral [...] 2 days zolpidem 10 mg oral tablet 09/17/2017 [...] 12:00 AM Kenalog, Per 10 Mg [facility]#0231-5405-04 Reviewed 12/07/2014 12:00 AM OFFICE/OUTPATIENT VISIT EST Reviewed 06/19/2011 12:00 AM DRAIN/INJ JOINT/BURSA W/O US Reviewed 06/19/2011 12:00 AM Kenalog 40 Mg Im-[facility]#0498-6555-46 Reviewed 08/25/2015 12:00 AM OFFICE/OUTPATIENT VISIT EST Reviewed 08/23/2015 12:00 AM Decadron, Per 1 Mg [facility]# [address]-02 Reviewed 08/23/2015 12:00 AM Depo-Medrol, Per 80 Mg [facility]#[address]-47 Reviewed 09/07/2015 12:00 AM X-RAY EXAM L-S [...] 12:00 AM Decadron, Per 1 Mg [facility]# [address]-01 Reviewed 10/23/2015 12:00 AM Depo-Medrol, Per 80 Mg [facility]#[address]-31 Reviewed 07/26/2011 12:00 AM X-RAY EXAM OF ABDOMEN Reviewed 11/21/2015 12:00 AM Orthopedics Consultation Reviewed 11/21/2015 12:00 AM Physical Therapy Consultation Reviewed 12/20/2015 12:00 AM EXTREMITY STUDY Reviewed 10/12/2011 12:00 AM EXTREMITY STUDY Reviewed 05/10/2016 12:00 AM CONTRAST X-RAY OF SHOULDER Reviewed 07/09/2016 12:00 AM PNEUMOCOCCAL VACC 13 RIP IM Reviewed 08/08/2016 12:00 AM Decadron, Per 1 Mg [facility]# [address]-55 Reviewed 08/08/2016 12:00 AM Depo-Medrol, Per 80 Mg [facility]#[address]-63 Reviewed 01/01/2012 12:00 AM AIRWAY INHALATION TREATMENT Reviewed 01/01/2012 12:00 AM Rocephin 1 gm [facility]#[address]-20 Reviewed 01/16/2012 12:00 AM DRAIN/INJ JOINT/BURSA W/O US Reviewed 01/16/2012 12:00 AM Kenalog per 10Mg Im-[facility]#[address]-82(Srinath) Reviewed 09/26/2016 12:00 AM CHEST X-RAY 2VW [...] AM SYNVISC, Per 1 Mg (2ml) [facility] [address]-75 Reviewed 06/05/2012 12:00 AM DRAIN/INJ JOINT/BURSA W/O US Reviewed 06/05/2012 12:00 AM SYNVISC, Per 1 Mg (2ml) [facility] [address]-52 Reviewed 06/12/2012 12:00 AM DRAIN/INJ JOINT/BURSA W/O US Reviewed 06/12/2012 12:00 AM SYNVISC, Per 1 Mg (2ml) [facility] [address]-24 Reviewed 06/06/2017 12:00 AM Decadron 4mg Injection Reviewed 06/06/2017 12:00 AM Depo-Medrol 40mg Injection Reviewed 06/06/2017 12:[address] ABD & PELV 1/> REGNS Reviewed 07/16/2012 12:00 AM Hepatobiliary ductal system imaging with functional assessment Reviewed 07/16/2012 12:00 AM Decadron 8 mg [facility]#[id number] Reviewed 07/16/2012 12:00 AM Depo-Medrol 80mg [facility]#[id number] Reviewed 07/16/2012 12:00 AM COMPREHEN METABOLIC PANEL Reviewed 07/16/2012 12:00 AM LIPID PANEL Reviewed 07/16/2012 12:00 AM Flu Injection 3 Years And Above [facility]# [address]-88 RHC Reviewed 08/19/2012 12:00 AM METABOLIC PANEL TOTAL CA Reviewed 12/21/2009 12:[address] ABDOMEN W/O & W/DYE Reviewed 10/22/2017 12:00 AM Decadron 4mg Injection Reviewed 10/22/2017 12:00 AM Depo-Medrol 40mg Injection Reviewed 10/02/2012 12:00 AM CHEST X-RAY 2VW FRONTAL&LATL Reviewed 10/09/2012 12:00 AM Decadron 8 mg [facility]#[id number] Reviewed 10/09/2012 12:00 AM Depo-Medrol 80mg [facility]#[id number] Reviewed 12/09/2012 12:00 AM CHEST X-RAY 2VW [...] AM SYNVISC-ONE, Per 1 Mg (6ml) [facility] [address]-07 Reviewed 02/26/2013 12:00 AM Physical Therapy Reviewed 02/26/2013 12:[address] NECK SPINE W/O & W/DYE Reviewed 04/07/2013 12:00 AM INJECT TRIGGER POINTS 3/> Reviewed 04/07/2013 12:00 AM Kenalog per 10Mg Im-[facility]#[address]-89(Srinath) Reviewed 07/21/2013 12:00 AM CHEST X-RAY 2VW FRONTAL&LATL Reviewed 07/21/2013 12:00 AM Decadron 8 mg [facility]# [address]-21 Reviewed 07/21/2013 12:00 AM Depo-Medrol 80 mg [facility]#[address]-30 Reviewed 07/21/2013 12:00 AM Rocephin 500 mg [facility]#8061-6857-71 Reviewed 09/22/2013 12:00 AM CHEST X-RAY 2VW FRONTAL&LATL Reviewed 10/29/2013 12:00 AM X-RAY EXAM OF ABDOMEN Reviewed 12/08/2013 12:00 AM THER/PROPH/DIAG INJ SC/IM Reviewed 12/08/2013 12:00 AM Decadron, Per 1 Mg [facility]# [address]-77 Reviewed 12/08/2013 12:00 AM Depo-Medrol, Per 80 Mg [facility]#6174-7537-03 Reviewed 12/08/2013 12:00 AM CHEST X-RAY 2VW [...] 01/05/2014 12:00 AM Decadron 8 mg [facility]# [address]-01 Reviewed 01/05/2014 12:00 AM Depo-Medrol 80 mg [facility]#[address]-34 Reviewed 01/05/2014 12:00 AM Rocephin 1 gram [facility]#6443-6242-17 Reviewed 03/15/2010 12:00 AM PROTHROMBIN TIME Reviewed [...] per 10Mg Im-[facility]#[address]-67(Srinath) Reviewed 05/05/2014 12:00 AM DRAIN/INJ JOINT/BURSA W/O US Reviewed 05/05/2014 12:00 AM SYNVISC-ONE, Per 1 Mg (6ml) [facility] [address]-23 Reviewed 05/06/2014 12:00 AM COMPREHEN METABOLIC PANEL [...] 11/07/2010 12:00 AM Rocephin 500 mg [facility]#[address]-38 Reviewed 07/14/2014 12:00 AM Fluzone MEDICARE Only Reviewed 11/29/2010 12:00 AM INJECT TRIGGER POINTS 3/> Reviewed 11/29/2010 12:00 AM Kenalog per 10Mg Im-[facility]#[address]-50(Srinath) Reviewed 07/14/2014 12:00 AM Decadron injection Reviewed [...] Vis Given Vis Pub CVX Pneumococcal 07/09/2016 Mmpcp-Qidblx-Orrakhk-Bran [facility] Wilfrednar 13 [id number] Intramuscular Right Deltoid 07/09/2016 07/28/2015 133 History [...] Number Start Date Medicare RHC Medicare RHC [id number] N/A [facility] State Plan [id number] N/A [facility] Medicare [place] Life Ins [id number] N/A [place] [facility] [place] [facility] [place] Prog [id number] N/A Medicare Part B Medicare Of [place] [id number] Friday, 2008 Medicare Part A Medicare Part A [id number] N/A [facility] RHC Comm [id number] Wednesday, 2015 [employer] - [place] [employer] [place] [id number] Wednesday, 2015 Medicare Part A Medicare - Lab/Xray [id number] N/A History of Encounters Visit Date Visit [...] 01/09/2017 Office visit Melecio Jaja DO 01/01/2017 [facility] Seth Devlin DO 12/31/2016 Hospital Rasta Mckeon MD 12/31/2016 Hospital Ama Barrios MD 12/21/2016 Office visit Melecio Jaja DO 11/20/2016 Office visit Melecio Jaja DO 11/05/2016 Office visit Melecio Ajja DO 10/23/2016 Office visit Melecio Jaja DO [...] 12/02/2014 [facility] Magi Powers MD 11/29/2014 [facility] Magi Powers MD 11/29/2014 Voided Katty CRAIG 11/11/2014 Office visit 11/11/2014 Office visit Katty CRAIG 11/11/2014 Office visit Melecio Wilkinson DO 10/14/2014 Office visit Katty CRAIG 09/14/2014 Office visit Katty CRAIG 09/08/2014 [facility] Ama Barrios MD 09/07/2014 Office visit [...] 05/14/2012 Office visit Gorge Yo MD 05/12/2012 [facility] DO 05/11/2012 [facility] 03/13/2012 Office visit Gorge Yo MD [...] 04/06/2010 Office visit Gorge Yo MD 04/02/2010 [facility] Alfonso Camacho MD 03/31/2010 Laboratory Alfonso Camacho MD 03/31/2010 Laboratory Alfonso Camacho MD 03/31/2010 [facility] Alfonso Camacho MD 03/21/2010 Procedures Gorge [...]
--- OUTSIDE RECORDS SUMMARY | 2018-01-22 15:43 | XMS REPORT ---
Author Author Melecio Wilkinson [facility] Address [address] [place] [id number] Care Team Providers Care Aircraft Part Assembler Name Role Phone Melecio Wilkinson PCP Unavailable [...] for 30 days Discontinued by Hospitalist at [place] niacin 500 mg oral tablet 10/10/2016 take [...] route every 12 hours for 30 days [place] guerita Amitiza 24 mcg oral capsule 05/03/2016 [...] Per 10 Mg [facility]#9613-4882-48 Reviewed 06/19/2011 12:00 AM DRAIN/INJ JOINT/BURSA W/O US Reviewed 06/19/2011 12:00 AM Kenalog 40 Mg Im-Nd#1240-0780-47 Reviewed 08/25/2015 12:00 AM OFFICE/OUTPATIENT VISIT EST Reviewed 08/23/2015 12:00 AM Decadron, Per 1 Mg [facility]# [address]-35 Reviewed 08/23/2015 12:00 AM Depo-Medrol, Per 80 Mg [facility]#[address]-65 Reviewed 09/07/2015 12:00 AM X-RAY EXAM L-S [...] 08/08/2016 12:00 AM Decadron, Per 1 Mg [facility]# [address]-24 Reviewed 08/08/2016 12:00 AM Depo-Medrol, Per 80 Mg [facility]#[address]-91 Reviewed 01/01/2012 12:00 AM Rocephin 1 gm [facility]#[address]-33 Reviewed 01/16/2012 12:00 AM DRAIN/INJ JOINT/BURSA W/O US Reviewed 01/16/2012 12:00 AM Kenalog per 10Mg [facility]#[address]-76(Srinath) Reviewed 09/26/2016 12:00 AM CHEST X-RAY 2VW FRONTAL&LATL Reviewed 10/23/2016 12:00 AM INJECT SPINE LUMBAR/SACRAL Reviewed 02/05/2012 12:[address] ABDOMEN W/O & W/DYE Reviewed 02/05/2012 12:[address] PELVIS W/O & W/DYE Reviewed 05/29/2012 12:00 AM DRAIN/INJ JOINT/BURSA W/O US Reviewed 05/29/2012 12:00 AM SYNVISC, Per 1 Mg (2ml) [facility] [address]-46 Reviewed 06/05/2012 12:00 AM DRAIN/INJ JOINT/BURSA W/O US Reviewed 06/05/2012 12:00 AM SYNVISC, Per 1 Mg (2ml) [facility] [address]-44 Reviewed 06/12/2012 12:00 AM DRAIN/INJ JOINT/BURSA W/O US Reviewed 06/12/2012 12:00 AM SYNVISC, Per 1 Mg (2ml) [facility] [address]-96 Reviewed 07/16/2012 12:00 AM Hepatobiliary ductal system imaging with functional assessment Reviewed 07/16/2012 12:00 AM Decadron 8 mg [facility]#[id number] Reviewed 07/16/2012 12:00 AM Depo-Medrol 80mg [facility]#08939445308 Reviewed 07/16/2012 12:00 AM COMPREHEN METABOLIC PANEL Reviewed 07/16/2012 12:00 AM LIPID PANEL Reviewed 07/16/2012 12:00 AM Flu Injection 3 Years And Above [facility]# [address]-60 RHC Reviewed 08/19/2012 12:00 AM METABOLIC PANEL TOTAL CA Reviewed 12/21/2009 12:[address] ABDOMEN W/O & W/DYE Reviewed 10/02/2012 12:00 AM CHEST X-RAY 2VW FRONTAL&LATL Reviewed 10/09/2012 12:00 AM Decadron 8 mg [facility]#49676015329 Reviewed 10/09/2012 12:00 AM Depo-Medrol 80mg [facility]#68864673995 Reviewed 12/09/2012 12:00 AM CHEST X-RAY 2VW [...] 1 Mg (6ml) [facility] [address]-72 Reviewed 02/26/2013 12:[address] NECK SPINE W/O & W/DYE Reviewed 04/07/2013 12:00 AM INJECT TRIGGER POINTS 3/> Reviewed 04/07/2013 12:00 AM Kenalog per 10Mg [facility]#[address]-27(Srinath) Reviewed 07/21/2013 12:00 AM CHEST X-RAY 2VW FRONTAL&LATL Reviewed 07/21/2013 12:00 AM Decadron 8 mg [facility]# [address]-97 Reviewed 07/21/2013 12:00 AM Depo-Medrol 80 mg [facility]#[address]-97 Reviewed 07/21/2013 12:00 AM Rocephin 500 mg [facility]#8111-5395-28 Reviewed 09/22/2013 12:00 AM CHEST X-RAY 2VW FRONTAL&LATL Reviewed 10/29/2013 12:00 AM X-RAY EXAM OF ABDOMEN Reviewed 12/08/2013 12:00 AM THER/PROPH/DIAG INJ SC/IM Reviewed 12/08/2013 12:00 AM Decadron, Per 1 Mg [facility]# [address]-94 Reviewed 12/08/2013 12:00 AM Depo-Medrol, Per 80 Mg [facility]#6638-6489-38 Reviewed 12/08/2013 12:00 AM CHEST X-RAY 2VW [...] Reviewed 01/05/2014 12:00 AM Decadron 8 mg [facility]# [address]-76 Reviewed 01/05/2014 12:00 AM Depo-Medrol 80 mg [facility]#[address]-93 Reviewed 01/05/2014 12:00 AM Rocephin 1 gram [facility]#4953-3421-65 Reviewed 03/15/2010 12:00 AM PROTHROMBIN TIME Reviewed [...] 12:00 AM Kenalog per 10Mg [facility]#[address]-74(Srinath) Reviewed 05/05/2014 12:00 AM DRAIN/INJ JOINT/BURSA W/O US Reviewed 05/05/2014 12:00 AM SYNVISC-ONE, Per 1 Mg (6ml) [facility] [address]-82 Reviewed 05/06/2014 12:00 AM COMPREHEN METABOLIC PANEL [...] Rocephin 500 mg [facility]#[address]-19 Reviewed 07/14/2014 12:00 AM Fluzone MEDICARE Only Reviewed 11/29/2010 12:00 AM INJECT TRIGGER POINTS 3/> Reviewed 11/29/2010 12:00 AM Kenalog per 10Mg -[facility]#[address]-19(Srinath) Reviewed 07/14/2014 12:00 AM Decadron injection Reviewed [...] CVX Pneumococcal 07/09/2016 [facility] Prevnar 13 [id number] Intramuscular Right Deltoid 07/09/2016 07/28/2015 133 History [...] Group Number Start Date Medicare RHC Medicare [facility] [id number] N/A [employer] [place] [employer] [place] [id number] N/A [place] [employer] Medicare [place] [employer] Ins [phone] N/A [place] Medical Assistance [facility] Medical Assistance Pro [id number] N/A Medicare Part B Medicare Of [place] [id number] Friday, 2008 Medicare Part A Medicare Part A [id number] N/A [facility] - RHC - Community Plan [facility] RHC Comm [id number] Wednesday, 2015 [employer] - [place] State Plan [employer] - [place] State Plan [id number] Wednesday, 2015 Medicare Part A Medicare - Lab/Xray [id number] N/A History of Encounters Visit Date Visit [...] MD 12/02/2014 [facility] Magi Gio STRONG 11/29/2014 [facility] Gio STRONG 11/29/2014 Voided Katty CRAIG 11/11/2014 Office visit 11/11/2014 Office visit Katty CRAIG 11/11/2014 Office visit Melecio Jaja DO 10/14/2014 Office visit Katty CRAIG 09/14/2014 Office visit Katty CRAIG 09/08/2014 [facility] Ama Barrios MD 09/07/2014 Office visit Melecio Jaja DO 08/16/2014 Nurse visit Katty CRAIG 07/19/2014 Office visit Katty CRAIG 07/14/2014 Office visit Melecio Jaja DO 06/21/2014 Office visit Katty DURÁNP 05/20/2014 Office visit Melecio Jaja DO 05/14/2014 Office visit Melecio Jaja DO 05/05/2014 Office visit Katty Jefferson MULTISENSOR INTELLIGENCE OFFICER 04/26/2014 Office visit Katty Jefferson MULTISENSOR INTELLIGENCE OFFICER 03/24/2014 Office visit Katty DURÁNP 02/24/2014 Office visit Katty Jefferson MULTISENSOR INTELLIGENCE OFFICER 01/05/2014 Office visit Melecio Jaja DO 12/23/2013 Office visit Katty Jefferson MULTISENSOR INTELLIGENCE OFFICER 12/23/2013 Office visit Melecio Jaja DO 12/18/2013 Office visit Janis Navarrete BREAK OUT MAN 12/08/2013 Office visit Janis Navarrete BREAK OUT MAN 11/25/2013 Office visit Katty Jefferson MULTISENSOR INTELLIGENCE OFFICER 10/29/2013 Office visit Melecio Wilkinson DO 09/22/2013 Office visit Janis Navarrete BREAK OUT MAN 07/28/2013 Office visit Katty Jefferson MULTISENSOR INTELLIGENCE OFFICER 07/21/2013 Office visit Melecio Wilkinson DO 07/08/2013 Office visit Katty CRAIG 05/06/2013 Office visit Melecio Wilkinson DO 04/07/2013 Office visit Gorge Yo MD 02/26/2013 Office visit Melecio Wilkinson DO 01/29/2013 Office visit Gorge Yo MD 01/06/2013 Office visit Gorge Yo MD 12/09/2012 [facility] Ama Barrios MD 12/09/2012 Office visit Stephanie Richardson BREAK OUT MAN 11/26/2012 Office visit Gorge Yo MD 10/30/2012 [...] 05/14/2012 Office visit Gorge Yo MD 05/12/2012 [facility] DO 05/11/2012 [facility] DO 03/13/2012 Office visit Gorge Yo MD 02/05/2012 Office visit Melecio Wilkinson DO 01/31/2012 Office visit Gorge Yo MD 01/16/2012 Office visit Gorge Yo MD 01/01/2012 Office visit Melecio Wilkinson DO 11/16/2011 Office visit Gorge Yo MD 10/05/2011 Office visit Gorge Yo MD 10/01/2011 Office visit Jnais Navarrete APRN 09/06/2011 Office visit Gorge Yo [...]
--- OUTSIDE RECORDS SUMMARY | 2018-01-22 15:45 | XMS REPORT ---
Author Author Melecio Wilkinson [facility] Address [address] [place] [phone] Care Team Providers Care Sales Contract Administrator Name Role Phone Melecio Wilkinson PCP Unavailable [...] for 30 days Discontinued by Hospitalist at [place] Augmentin Oral Tablet 875-125 mg 11/07/2010 03/05/2011 [...] 2015 4:21PM Pleurisy Feb 28 2015 4:21PM Payers Insurance Name Company Name Plan Name Plan Number Policy Number Policy Group Number Start Date Medicare Part A Medicare Part A [id number] N/A [employer] [place] Medicare [employer] [place] Ins [phone] N/A [place] Medical Assistance [facility] Medical Assistance Pro [id number] N/A Medicare Part B Medicare Of [place] [id number] Friday, 2008 History of Encounters Visit Date [...] visit Melecio Wilkinson DO 06/21/2014 Office visit Ktaty CRAIG 05/20/2014 Office visit Melecio Wilkinson DO 05/14/2014 Office visit Melecio Wilkinson DO 05/05/2014 Office visit Katty CRAIG 04/26/2014 Office visit Katty CRAIG 03/24/2014 Office visit Katty M. Ronny ACID CRANE OPERATOR 02/24/2014 Office visit Katty Jefferson ACID CRANE OPERATOR 01/05/2014 Office visit Melecio Wilkinson DO 12/23/2013 Office visit Melecio Wilkinson DO 12/23/2013 Office visit Katty Jefferson ACID CRANE OPERATOR 12/18/2013 Office visit Janis Navarrete BRAZER REPAIR AND SALVAGE 12/08/2013 Office visit Janis Navarrete BRAZER REPAIR AND SALVAGE 11/25/2013 Office visit Katty Jefferson ACID CRANE OPERATOR 10/29/2013 Office visit Melecio Wilkinson DO 09/22/2013 Office visit Janis Navarrete BRAZER REPAIR AND SALVAGE 07/28/2013 Office visit Katty Minerva Ronny ACID CRANE OPERATOR 07/21/2013 Office visit Melecio Wilkinson DO 07/08/2013 Office visit Katty Jefferson ACID CRANE OPERATOR 05/06/2013 Office visit Melecio Wilkinson DO 04/07/2013 Office visit Gorge Yo MD 02/26/2013 Office visit Melecio Wilkinson DO 01/29/2013 Office visit Gorge Yo MD 01/06/2013 Office visit Gorge Yo MD 12/09/2012 Office visit Stephanie Richardson BRAZER REPAIR AND SALVAGE 12/09/2012 [facility] Ama Barrios MD [...] 04/02/2010 Hospital Alfonso Camacho MD 03/31/2010 Laboratory lAfonso Camacho MD 03/31/2010 Laboratory Alfonso Camacho MD [...]
--- OUTSIDE RECORDS SUMMARY | 2018-01-22 15:49 | XMS REPORT ---
Author Author Katty Jefferson [facility] Address [address] [place] [phone] Care Team Providers Care Value Engineer Name Role Phone Katty Jefferson PCP [...] for 30 days Discontinued by Hospitalist at [place] Augmentin 875-125 mg oral tablet 11/07/2010 03/05/2011 [...] 40 Mg Im-[facility]#2260-9201-65 Reviewed 11/03/2009 12:00 AM PROTHROMBIN TIME Reviewed 07/26/2011 12:00 AM X-RAY EXAM OF ABDOMEN Reviewed 10/12/2011 12:00 AM EXTREMITY STUDY Reviewed 01/01/2012 12:00 AM Rocephin 1 gm [facility]#[address]-81 Reviewed 01/16/2012 12:00 AM DRAIN/INJ JOINT/BURSA W/O US Reviewed 01/16/2012 12:00 AM Kenalog per 10Mg Im-[facility]#[address]-94(Srinath) Reviewed 02/05/2012 12:[address] ABDOMEN W/O & W/DYE Reviewed 02/05/2012 12:[address] PELVIS W/O & W/DYE Reviewed 05/29/2012 12:00 AM DRAIN/INJ JOINT/BURSA W/O US Reviewed 05/29/2012 12:00 AM SYNVISC, Per 1 Mg (2ml) [facility] [address]-29 Reviewed 06/05/2012 12:00 AM DRAIN/INJ JOINT/BURSA W/O US Reviewed 06/05/2012 12:00 AM SYNVISC, Per 1 Mg (2ml) [facility] [address]-20 Reviewed 06/12/2012 12:00 AM DRAIN/INJ JOINT/BURSA W/O US Reviewed 06/12/2012 12:00 AM SYNVISC, Per 1 Mg (2ml) [facility] [address]-51 Reviewed 07/16/2012 12:00 AM Hepatobiliary ductal system imaging with functional assessment Reviewed 07/16/2012 12:00 AM Decadron 8 mg [facility]#[id number] Reviewed 07/16/2012 12:00 AM Depo-Medrol 80mg [place]#[id number] Reviewed 07/16/2012 12:00 AM COMPREHEN METABOLIC PANEL Reviewed 07/16/2012 12:00 AM LIPID PANEL Reviewed 07/16/2012 12:00 AM Flu Injection 3 Years And Above [facility]# [address]-20 RHC Reviewed 08/19/2012 12:00 AM METABOLIC PANEL TOTAL CA Reviewed 12/21/2009 12:[address] ABDOMEN W/O & W/DYE Reviewed 10/02/2012 12:00 AM CHEST X-RAY 2VW FRONTAL&LATL Reviewed 10/09/2012 12:00 AM Decadron 8 mg [facility]#[id number] Reviewed 10/09/2012 12:00 AM Depo-Medrol 80mg [facility]#[id number] Reviewed 12/09/2012 12:00 AM CHEST X-RAY 2VW [...] SYNVISC-ONE, Per 1 Mg (6ml) [facility] [address]-21 Reviewed 02/26/2013 12:[address] NECK SPINE W/O & W/DYE Reviewed 04/07/2013 12:00 AM INJECT TRIGGER POINTS 3/> Reviewed 04/07/2013 12:00 AM Kenalog per 10Mg [facility]#[address]-04(Srinath) Reviewed 07/21/2013 12:00 AM CHEST X-RAY 2VW FRONTAL&LATL Reviewed 07/21/2013 12:00 AM Decadron 8 mg [facility]# [address]-46 Reviewed 07/21/2013 12:00 AM Depo-Medrol 80 mg [facility]#[address]-42 Reviewed 07/21/2013 12:00 AM Rocephin 500 mg [facility]#8600-3284-22 Reviewed 09/22/2013 12:00 AM CHEST X-RAY 2VW FRONTAL&LATL Returned 10/29/2013 12:00 AM X-RAY EXAM OF ABDOMEN Reviewed 12/08/2013 12:00 AM THER/PROPH/DIAG INJ SC/IM Reviewed 12/08/2013 12:00 AM Decadron, Per 1 Mg [facility]# [address]-60 Reviewed 12/08/2013 12:00 AM Depo-Medrol, Per 80 Mg [facility]#4286-8106-79 Reviewed 12/08/2013 12:00 AM CHEST X-RAY 2VW [...] Returned 01/05/2014 12:00 AM Decadron 8 mg [facility]# [address]-90 Reviewed 01/05/2014 12:00 AM Depo-Medrol 80 mg [facility]#[address]-96 Reviewed 01/05/2014 12:00 AM Rocephin 1 gram [facility]#3223-6225-41 Reviewed 03/15/2010 12:00 AM PROTHROMBIN TIME Reviewed [...] per 10Mg [facility]#[address]-61(Srinath) Reviewed 05/05/2014 12:00 AM DRAIN/INJ JOINT/BURSA W/O US Reviewed 05/05/2014 12:00 AM SYNVISC-ONE, Per 1 Mg (6ml) [facility] [address]-59 Reviewed 05/06/2014 12:00 AM COMPREHEN METABOLIC PANEL [...] 12:00 AM Rocephin 500 mg [facility]#[address]-44 Reviewed 07/14/2014 12:00 AM Fluzone MEDICARE Only Reviewed 11/29/2010 12:00 AM INJECT TRIGGER POINTS 3/> Reviewed 11/29/2010 12:00 AM Kenalog per 10Mg [facility]#[address]-73(Srinath) Reviewed 07/14/2014 12:00 AM Decadron injection Reviewed [...] 3:59PM Cervical radiculopathy Jun 15 2015 3:59PM Payers Insurance Name Company Name Plan Name Plan Number Policy Number Policy Group Number Start Date Medicare Part A Medicare Part A [id number] N/A [place] [employer] Medicare [facility] Ins [id number] N/A [place] Medical Assistance [facility] Medical Assistance Pro [id number] N/A Medicare Part B Medicare Of [place] [id number] Friday, 2008 History of Encounters Visit Date [...] Katty CRAIG 12/16/2014 [facility] Alfa Pltat MD 12/14/2014 Voided Melecio Wilkinson DO 12/08/2014 Office visit Alfa Platt MD 12/08/2014 Office visit Melecio Cruzte DO 12/07/2014 Nurse visit Riri Salazar MD 12/02/2014 Hospital Alfa Platt MD 12/02/2014 [facility] Magi Powers MD 11/29/2014 [facility] Magi Powers MD 11/29/2014 Voided Katty CRAIG 11/11/2014 Office visit Katty CRIAG 11/11/2014 Office visit Melecio Wilkinson DO 10/14/2014 Office visit Katty CRAIG 09/14/2014 Office visit Katty CRAIG 09/08/2014 [facility] Ama Barrios MD 09/07/2014 Office [...] Barrios MD 12/09/2012 Office visit Stephanie Richardson GROUND SYSTEMS ENGINEER 11/26/2012 Office visit Gorge Yo MD 10/30/2012 [...] 05/14/2012 Office visit Gorge Yo MD 05/12/2012 [facility] DO 05/11/2012 [facility] DO 03/13/2012 Office visit Gorge Yo MD 02/05/2012 Office visit Melecio Wilkinson DO 01/31/2012 Office visit Gorge Yo MD 01/16/2012 Office visit Gorge Yo MD 01/01/2012 Office visit Melecio Wilkinson DO 11/16/2011 Office visit Gorge Yo MD 10/05/2011 Office visit Gorge Yo MD 10/01/2011 Office visit Janis Navarrete GROUND SYSTEMS ENGINEER 09/06/2011 Office visit Gorge Yo MD 07/26/2011 [...] Office visit Gorge Yo MD 07/06/2009 Laboratory aVmshi Aguero MD 06/27/2009 Office visit Gorge Yo MD 06/17/2009 Office visit Vamshi Aguero MD 05/24/2009 Office visit Gorge Yo MD
--- OUTSIDE RECORDS SUMMARY | 2018-01-22 15:53 | XMS REPORT ---
Author Author Melecio Wilkinson [facility] Address [address] [place] [phone] Care Team Providers Care Airplane Tester Name Role Phone Melecio Wilkinson PCP Unavailable [...] 2 times a day for 30 days carvedilol 25 mg oral tablet 06/14/2015 06/08/2016 take 1 tablet (25 mg) by oral route 2 times per day with food for 90 days Name Start Date Expiration Date SIG [...] for 30 days Discontinued by Hospitalist at [place] Augmentin 875-125 mg oral tablet 11/07/2010 03/05/2011 [...] AM Kenalog 40 Mg Im-[facility]#6746-5721-60 Reviewed 11/03/2009 12:00 AM PROTHROMBIN TIME Reviewed 07/26/2011 12:00 AM X-RAY EXAM OF ABDOMEN Reviewed 10/12/2011 12:00 AM EXTREMITY STUDY Reviewed 01/01/2012 12:00 AM Rocephin 1 gm [facility]#[address]-54 Reviewed 01/16/2012 12:00 AM DRAIN/INJ JOINT/BURSA W/O US Reviewed 01/16/2012 12:00 AM Kenalog per 10Mg [facility]#[address]-52(Srinath) Reviewed 02/05/2012 12:[address] ABDOMEN W/O & W/DYE Reviewed 02/05/2012 12:[address] PELVIS W/O & W/DYE Reviewed 05/29/2012 12:00 AM DRAIN/INJ JOINT/BURSA W/O US Reviewed 05/29/2012 12:00 AM SYNVISC, Per 1 Mg (2ml) [facility] [address]-55 Reviewed 06/05/2012 12:00 AM DRAIN/INJ JOINT/BURSA W/O US Reviewed 06/05/2012 12:00 AM SYNVISC, Per 1 Mg (2ml) [facility] [address]-84 Reviewed 06/12/2012 12:00 AM DRAIN/INJ JOINT/BURSA W/O US Reviewed 06/12/2012 12:00 AM SYNVISC, Per 1 Mg (2ml) [facility] [address]-78 Reviewed 07/16/2012 12:00 AM Hepatobiliary ductal system imaging with functional assessment Reviewed 07/16/2012 12:00 AM Decadron 8 mg [facility]#[id number] Reviewed 07/16/2012 12:00 AM Depo-Medrol 80mg [facility]#87504599385 Reviewed 07/16/2012 12:00 AM COMPREHEN METABOLIC PANEL Reviewed 07/16/2012 12:00 AM LIPID PANEL Reviewed 07/16/2012 12:00 AM Flu Injection 3 Years And Above [facility]# [address]-94 RHC Reviewed 08/19/2012 12:00 AM METABOLIC PANEL TOTAL CA Reviewed 12/21/2009 12:[address] ABDOMEN W/O & W/DYE Reviewed 10/02/2012 12:00 AM CHEST X-RAY 2VW FRONTAL&LATL Reviewed 10/09/2012 12:00 AM Decadron 8 mg [facility]#03020187988 Reviewed 10/09/2012 12:00 AM Depo-Medrol 80mg [facility]#60327296208 Reviewed 12/09/2012 12:00 AM CHEST X-RAY 2VW [...] 12:00 AM SYNVISC-ONE, Per 1 Mg (6ml) [facility] [address]-51 Reviewed 02/26/2013 12:[address] NECK SPINE W/O & W/DYE Reviewed 04/07/2013 12:00 AM INJECT TRIGGER POINTS 3/> Reviewed 04/07/2013 12:00 AM Kenalog per 10Mg [facility]#[address]-61(Srinath) Reviewed 07/21/2013 12:00 AM CHEST X-RAY 2VW FRONTAL&LATL Reviewed 07/21/2013 12:00 AM Decadron 8 mg [facility]# [address]-08 Reviewed 07/21/2013 12:00 AM Depo-Medrol 80 mg [facility]#[address]-20 Reviewed 07/21/2013 12:00 AM Rocephin 500 mg [facility]#3009-8062-53 Reviewed 09/22/2013 12:00 AM CHEST X-RAY 2VW FRONTAL&LATL Returned 10/29/2013 12:00 AM X-RAY EXAM OF ABDOMEN Reviewed 12/08/2013 12:00 AM THER/PROPH/DIAG INJ SC/IM Reviewed 12/08/2013 12:00 AM Decadron, Per 1 Mg [facility]# [address]-93 Reviewed 12/08/2013 12:00 AM Depo-Medrol, Per 80 Mg [facility]#7701[address]-40 Reviewed 12/08/2013 12:00 AM CHEST X-RAY 2VW [...] Returned 01/05/2014 12:00 AM Decadron 8 mg [facility]# [address]-51 Reviewed 01/05/2014 12:00 AM Depo-Medrol 80 mg [facility]#[address]-21 Reviewed 01/05/2014 12:00 AM Rocephin 1 gram [facility]#8690-1439-90 Reviewed 03/15/2010 12:00 AM PROTHROMBIN TIME Reviewed [...] AM Kenalog per 10Mg [facility]#[address]-47(Srinath) Reviewed 05/05/2014 12:00 AM DRAIN/INJ JOINT/BURSA W/O US Reviewed 05/05/2014 12:00 AM SYNVISC-ONE, Per 1 Mg (6ml) [facility] [address]-38 Reviewed 05/06/2014 12:00 AM COMPREHEN METABOLIC PANEL [...] Reviewed 11/07/2010 12:00 AM Rocephin 500 mg [facility]#[address]-00 Reviewed 07/14/2014 12:00 AM Fluzone MEDICARE Only Reviewed 11/29/2010 12:00 AM INJECT TRIGGER POINTS 3/> Reviewed 11/29/2010 12:00 AM Kenalog per 10Mg [facility]#[address]-83(Srinath) Reviewed 07/14/2014 12:00 AM Decadron injection Reviewed [...] disc disease Feb 2014 2:04PM Lumbar Radiculitis b 2014 2:04PM Cervicalgia Nov 11 2014 2:04PM [...] Date Medicare Part A Medicare Part A [id number] N/A [place] [employer] Medicare [facility] [id number] N/A [place] Medical Assistance [facility] Medical Assistance Prog [id number] N/A Medicare Part B Medicare Of [place] [id number] Friday, 2008 History of Encounters Visit Date [...] MD 12/02/2014 Hospital Magi Powers MD 11/29/2014 [facility] Magi Powers MD 11/29/2014 Voided Katty CRAIG [...] Wilkinson DO 09/22/2013 Office visit Janis Navarrete MAC ARTIST 07/28/2013 Office visit Katty CRAIG 07/21/2013 Office visit Melecio Wilkinson DO 07/08/2013 Office visit Katty CRAIG 05/06/2013 Office visit Melecio Wilkinson DO 04/07/2013 Office visit Gorge Yo MD 02/26/2013 Office visit Melecio Wilkinson DO 01/29/2013 Office visit Gorge Yo MD 01/06/2013 Office visit Gorge Yo MD 12/09/2012 [facility] Ama Barrios MD 12/09/2012 Office visit Stephanie Richardson MAC ARTIST 11/26/2012 Office visit Gorge Yo MD 10/30/2012 [...] 05/14/2012 Office visit Gorge Yo MD 05/12/2012 [facility] DO 05/11/2012 [facility] DO 03/13/2012 Office visit Gorge Yo MD 02/05/2012 Office visit Melecio Wilkinson DO 01/31/2012 Office visit Gorge Yo MD 01/16/2012 Office visit Gorge Yo MD 01/01/2012 Office visit Melecio Wilkinson DO 11/16/2011 Office visit Gorge Yo MD 10/05/2011 Office visit Gorge Yo MD 10/01/2011 Office visit Janis Navarrete MAC ARTIST 09/06/2011 Office visit Gorge Yo MD 07/26/2011 Office visit Melecio Wilkinson DO 06/19/2011 Office visit Gorge Yo MD 06/06/2011 Office visit Gorge Yo MD 03/22/2011 Office visit Gorge Yo MD 03/05/2011 Office visit Melecio Wilkinson DO 02/06/2011 Hospital Gorge Yo MD 01/08/2011 Office visit Melecio Wilkinson DO 12/27/2010 Office visit Gorge oY MD 11/29/2010 Office visit Gorge Yo MD [...] 04/06/2010 Office visit Gorge Yo MD 04/02/2010 [facility] Alfonso Camacho MD 03/31/2010 Laboratory Alfonso Camacho [...]
--- OUTSIDE RECORDS SUMMARY | 2018-01-22 15:58 | XMS REPORT ---
Author Author Melecio Wilkinson [facility] Address [address] [place] [phone] Care Team Providers Care Converter Supervisor Name Role Phone Melecio Wilkinson PCP [...] for 30 days Discontinued by Hospitalist at [place] Augmentin 875-125 mg oral tablet 11/07/2010 03/05/2011 [...] route every 12 hours for 30 days Bertram stoned Problem List Description Status Onset SI [...] 12:00 AM Kenalog, Per 10 Mg [facility]#4521-8977-17 Reviewed 06/19/2011 12:00 AM DRAIN/INJ JOINT/BURSA W/O US Reviewed 06/19/2011 12:00 AM Kenalog 40 Mg [facility]#0823-9284-13 Reviewed 08/25/2015 12:00 AM OFFICE/OUTPATIENT VISIT EST Reviewed 08/23/2015 12:00 AM Decadron, Per 1 Mg [facility]# [address]-89 Reviewed 08/23/2015 12:00 AM Depo-Medrol, Per 80 Mg [facility]#[address]-30 Reviewed 09/07/2015 12:00 AM X-RAY EXAM L-S [...] 12:00 AM Rocephin 1 gm [facility]#[address]-75 Reviewed 01/16/2012 12:00 AM DRAIN/INJ JOINT/BURSA W/O US Reviewed 01/16/2012 12:00 AM Kenalog per 10Mg [facility]#[address]-60(Srinath) Reviewed 02/05/2012 12:[address] ABDOMEN W/O & W/DYE Reviewed 02/05/2012 12:[address] PELVIS W/O & W/DYE Reviewed 05/29/2012 12:00 AM DRAIN/INJ JOINT/BURSA W/O US Reviewed 05/29/2012 12:00 AM SYNVISC, Per 1 Mg (2ml) [facility] [address]-51 Reviewed 06/05/2012 12:00 AM DRAIN/INJ JOINT/BURSA W/O US Reviewed 06/05/2012 12:00 AM SYNVISC, Per 1 Mg (2ml) [facility] [address]-99 Reviewed 06/12/2012 12:00 AM DRAIN/INJ JOINT/BURSA W/O US Reviewed 06/12/2012 12:00 AM SYNVISC, Per 1 Mg (2ml) [facility] [address]-41 Reviewed 07/16/2012 12:00 AM Hepatobiliary ductal system imaging with functional assessment Reviewed 07/16/2012 12:00 AM Decadron 8 mg [facility]#99246531794 Reviewed 07/16/2012 12:00 AM Depo-Medrol 80mg [facility]#41595405159 Reviewed 07/16/2012 12:00 AM COMPREHEN METABOLIC PANEL Reviewed 07/16/2012 12:00 AM LIPID PANEL Reviewed 07/16/2012 12:00 AM Flu Injection 3 Years And Above [facility]# [address]-44 RHC Reviewed 08/19/2012 12:00 AM METABOLIC PANEL TOTAL CA Reviewed 12/21/2009 12:[address] ABDOMEN W/O & W/DYE Reviewed 10/02/2012 12:00 AM CHEST X-RAY 2VW FRONTAL&LATL Reviewed 10/09/2012 12:00 AM Decadron 8 mg [facility]#73844059407 Reviewed 10/09/2012 12:00 AM Depo-Medrol 80mg [facility]#28819600263 Reviewed 12/09/2012 12:00 AM CHEST X-RAY 2VW [...] Per 1 Mg (6ml) [facility] [address]-92 Reviewed 02/26/2013 12:[address] NECK SPINE W/O & W/DYE Reviewed 04/07/2013 12:00 AM INJECT TRIGGER POINTS 3/> Reviewed 04/07/2013 12:00 AM Kenalog per 10Mg [facility]#[address]-15(Srinath) Reviewed 07/21/2013 12:00 AM CHEST X-RAY 2VW FRONTAL&LATL Reviewed 07/21/2013 12:00 AM Decadron 8 mg [facility]# [address]-63 Reviewed 07/21/2013 12:00 AM Depo-Medrol 80 mg [facility]#[address]-52 Reviewed 07/21/2013 12:00 AM Rocephin 500 mg [facility]#9259-5151-62 Reviewed 09/22/2013 12:00 AM CHEST X-RAY 2VW FRONTAL&LATL Returned 10/29/2013 12:00 AM X-RAY EXAM OF ABDOMEN Reviewed 12/08/2013 12:00 AM THER/PROPH/DIAG INJ SC/IM Reviewed 12/08/2013 12:00 AM Decadron, Per 1 Mg [facility]# [address]-08 Reviewed 12/08/2013 12:00 AM Depo-Medrol, Per 80 Mg [facility]#6263-0346-04 Reviewed 12/08/2013 12:00 AM CHEST X-RAY 2VW [...] AM Decadron 8 mg [facility]# [address]-60 Reviewed 01/05/2014 12:00 AM Depo-Medrol 80 mg [facility]#[address]-10 Reviewed 01/05/2014 12:00 AM Rocephin 1 gram [facility]#3957-3500-60 Reviewed 03/15/2010 12:00 AM PROTHROMBIN TIME Reviewed [...] [facility]#[address]-95(Srinath) Reviewed 05/05/2014 12:00 AM DRAIN/INJ JOINT/BURSA W/O US Reviewed 05/05/2014 12:00 AM SYNVISC-ONE, Per 1 Mg (6ml) [facility] [address]-36 Reviewed 05/06/2014 12:00 AM COMPREHEN METABOLIC PANEL [...] 12:00 AM Rocephin 500 mg [facility]#[address]-63 Reviewed 07/14/2014 12:00 AM Fluzone MEDICARE Only Reviewed 11/29/2010 12:00 AM INJECT TRIGGER POINTS 3/> Reviewed 11/29/2010 12:00 AM Kenalog per 10Mg [facility]#[address]-34(Srinath) Reviewed 07/14/2014 12:00 AM Decadron injection Reviewed [...] Start Date Medicare Part A Medicare RHC [id number] N/A [employer] - [place] [employer] [place] [id number] Wednesday, 2015 Medicare Part A Medicare - Lab/Xray [id number] N/A [place] Life Medicare [facility] Life Ins [id number] N/A [place] Medical Assistance [facility] Medical Assistance Prog [id number] N/A Medicare Part B Medicare Of [place] [id number] Friday, February 22, 2008 Medicare Part A Medicare Part A [id number] N/A [facility] - RHC - [facility] Plan [facility] Comm [id number] Wednesday, September 23, 2015 History of Encounters Visit Date Visit Type Provider 05/03/2016 Office visit eMlecio Wilkinson DO 04/11/2016 Office visit Melecio Wilkinson [...] [facility] Magi Powers MD 11/29/2014 [facility] Magi Powers MD 11/29/2014 Voided Katty CRAIG 11/11/2014 Office visit 11/11/2014 Office visit Katty CRAIG 11/11/2014 Office visit Melecio Jaja DO 10/14/2014 Office visit Katty CRAIG 09/14/2014 Office visit Katty CRAIG 09/08/2014 Hospital Ama Barrios MD 09/07/2014 Office visit Melecio Jaja DO 08/16/2014 Nurse visit Katty Jefferson INTELLECTUAL PROPERTY COUNSEL 07/19/2014 Office visit Katty Jefferson INTELLECTUAL PROPERTY COUNSEL 07/14/2014 Office visit Melecio Jaja DO 06/21/2014 Office visit Katty Jefferson INTELLECTUAL PROPERTY COUNSEL 05/20/2014 Office visit Melecio Jaja DO 05/14/2014 Office visit Melecio Jaja DO 05/05/2014 Office visit Katty Jefferson INTELLECTUAL PROPERTY COUNSEL 04/26/2014 Office visit Katty DURÁNP 03/24/2014 Office visit Katty DURÁNP 02/24/2014 Office visit Katty DURÁNP 01/05/2014 Office visit Melecio Jaja DO 12/23/2013 Office visit Katty DURÁNP 12/23/2013 Office visit Melecio Jaja DO 12/18/2013 Office visit Janis Landon MILL PLATFORM SUPERVISOR 12/08/2013 Office visit Janis Landon MILL PLATFORM SUPERVISOR 11/25/2013 Office visit Katty DURÁNP 10/29/2013 Office visit Melecio Wilkinson DO 09/22/2013 Office visit Janis Navarrete MILL PLATFORM SUPERVISOR 07/28/2013 Office visit Katty DURÁNP 07/21/2013 [...] 05/14/2012 Office visit Gorge Yo MD 05/12/2012 [facility] DO 05/11/2012 [facility] DO 03/13/2012 Office visit Gorge Yo [...]
--- OUTSIDE RECORDS SUMMARY | 2018-01-22 15:58 | XMS REPORT | CCD ---
Author Author OTILIO SALINAS Unknown Address [address] [place] [address] Care Team Providers Care Staff Climate Scientist Name Role Phone KEYUR BOYER Attphys HALEY REED MD Prisursherine 0 D., CAROLINA Fine NASST K., ERIKA NASST S., LAURA NASST F., MIHIR NASST D., FILI NASST W., LAVINIA Vargas NASST S., MARQUISE NASST S., ASHISH Lugo NASST R., BUNNY NASST K., DOLORES Lugo NASST W., XI NASST Allergies Allergy Code Allergy Type Reaction Status No Known Drug Allergies 0 Drug allergy Active Active Medications Medication Code Dose Units Frequency Route Modification Start Date/Time Magnesium Oxide 400MG Oral Tablet 649560 400 MILLIGRAMS THREE TIMES A DAY BY MOUTH 02/03/2017 11:27 Prescription Detail 400 MILLIGRAMS BY MOUTH THREE TIMES A DAY cloNIDine HCl 0.2MG Oral Tablet 353786 0.2 MILLIGRAMS THREE TIMES A DAY ORAL 01/02/2017 09:49 Prescription Detail 0.2 MILLIGRAMS ORAL THREE TIMES A DAY Opdivo 10MG/1ML Intravenous Solution 3612089 1 EACH INTRAVENOUS 01/02/2017 09:49 Prescription Detail 1 EACH INTRAVENOUS Opdivo 10MG/1ML Intravenous Solution [id number] 1 EACH INTRAVENOUS 01/02/2017 09:49 Prescription Detail 1 EACH INTRAVENOUS opdivo 40mg/4ml 0 1 EACH every two weeks INTRAMUSCULAR 01/02/2017 09:49 Prescription Detail 1 EACH INTRAMUSCULAR every two weeks Metoprolol Tartrate 25MG Oral Tablet 381505 12.5 MILLIGRAMS TWO TIMES A DAY BY MOUTH 01/02/2017 09: 47 Prescription Detail 12.5 MILLIGRAMS (Half tablet) BY MOUTH TWO TIMES A DAY Lipitor 40MG Oral Tablet 742470 40 MILLIGRAMS DAILY ORAL 07/06/2016 15:46 Prescription Detail 40 MILLIGRAMS ORAL DAILY Methocarbamol 750MG Oral Tablet 359242 750 MILLIGRAMS NEEDED EVERY 6 HR ORAL 07/06/2016 15:46 Prescription Detail 750 MILLIGRAMS ORAL NEEDED EVERY 6 HR oxyCODONE HCl 20MG Oral Tablet 2376082 20 MILLIGRAMS NEEDED EVERY 4 HR ORAL 07/06/2016 15:46 Prescription Detail 20 MILLIGRAMS ORAL NEEDED EVERY 4 HR Omeprazole 40MG Oral Capsule, Delayed Release 771576 40 MILLIGRAMS DAILY ORAL 12/02/2014 13:01 Prescription Detail 40 MILLIGRAMS ORAL DAILY Digoxin 0.125MG Oral Tablet 744395 0.125 MILLIGRAMS DAILY ORAL 03/17/2014 15:16 Prescription Detail 0.125 MILLIGRAMS ORAL DAILY Loratadine 10MG Oral Tablet 503144 10 MILLIGRAMS DAILY ORAL 03/17/2014 15:16 Prescription Detail 10 MILLIGRAMS ORAL DAILY Symbicort 160MCG/Actuation-4.5 Inhalation Aerosol Liquid 9580155 1 EACH TWO TIMES A DAY INHALATION 2013 15:16 Prescription Detail 1 EACH INHALATION TWO TIMES A DAY Tamsulosin Hydrochloride 0.4MG Oral Capsule 721574 0.4 MILLIGRAMS DAILY ORAL 03/17/2014 15:16 Prescription Detail 0.4 MILLIGRAMS ORAL DAILY Xarelto 20MG Oral Tablet 4940667 20 MILLIGRAMS DAILY ORAL 03/17/2014 15:16 Prescription Detail 20 MILLIGRAMS ORAL DAILY Zolpidem 10MG Oral Tablet 099528 10 MILLIGRAMS DAILY ORAL 03/17/2014 15:16 Prescription Detail 10 MILLIGRAMS ORAL DAILY Problems Problem Code Start Date Resolved Date Status Acute injury of kidney 38397276095857397 2017 Active Hypotension 25952881 01/31/2017 Active Dehydrated 53135544 2017 Active Procedures Procedure Code Procedure Type Date CT HEAD W/O CONTRAST 622182269 SNOMED CT 2017 CX CHEST [address] 2017 IRON PANEL 376297735 SNOMED CT 02/03/2017 LIPID PANEL 23398266 SNOM[address] 02/03/[address]IN A1C 4[address]1550 SNOM[address] 02/03/[address] 02/03/2017 COMPREHENSIVE METABOLIC PANEL 632570760 SNOMED CT 2016 CBC W/ AUTO DIFF (RFLX MAN DIFF IF IND) 2192185 SNOMED CT 02/03/2017 BASIC METABOLIC PANEL 142733261 SNOMED CT 02/02/2017 CBC W/ AUTO DIFF (RFLX MAN DIFF IF IND) 5761353 SNOMED CT 02/02/2017 CREATININE UR RANDOM 387596096 SNOMED CT 2017 SODIUM UR RANDOM 902620641 SNOMED CT 2017 UA ROUTINE C&S IF IND 443497340 SNOMED CT 2017 CBC W/ AUTO DIFF (RFLX MAN DIFF IF IND) 7328417 SNOMED CT 2017 RAPID DRUG SCREEN 385141454 SNOMED CT 2017 TROPONIN-I ADV 256020411 SNOMED CT [address] 2017 COMPREHENSIVE METABOLIC PANEL 107057714 SNOMED CT 2016 BAN AERO ECLIPSE TREATMENT #[address] 2016 BAN AERO ECLIPSE TREATMENT #[address] 2016 BAN AERO ECLIPSE TREATMENT #[address] 2016 ^CBC W/AUTO DIFF 7409232 SNOMED CT 02/03/2017 ^CBC W/AUTO DIFF 3411797 SNOMED CT 02/02/2017 ^UA WITH MICRO 507953995 SNOMED CT 2017 ^CBC W/AUTO DIFF 2258776 SNOMED CT 2017 OXYGEN/HOUR 853486655 SNOMED CT 02/02/2017 OXYGEN/HOUR 818193161 SNOMED CT 02/02/2017 BAN AERO ECLIPSE TREATMENT 52399702 SNOMED CT 02/02/2017 BAN AERO ECLIPSE TREATMENT 12877629 SNOMED CT 02/02/2017 BAN AERO ECLIPSE TREATMENT 82396217 SNOMED CT 02/02/2017 BAN AERO ECLIPSE TREATMENT 47526909 SNOMED CT 02/02/2017 BAN AERO ECLIPSE TREATMENT 99463709 SNOMED CT 2017 [facility]AN [facility]CLIPSE [facility] 18140868 [facility] Results BASIC METABOLIC PANEL - Collect Date/Time: 02/02/2017 06:05 Test Name Code Test Result Test Units Test Ref Range GLUCOSE 2345-7 80 MG/DL L=70 H=100 SODIUM 2951-2 144 MEQ/L L=135 H=148 POTASSIUM 2823-3 4.4 MEQ/L L=3.5 H=5.3 CHLORIDE 2075-0 112 MEQ/L L=96 H=110 CO2 2028-9 22 MEQ/L L=22 H=29 BUN 3094-0 32 MG/DL L=8 H=22 CREATININE 2160-0 2.1 MG/DL L=0.6 H=1.6 CALCIUM 40382-7 8.4 MG/DL L=8.2 H=10.6 AGE 42[birth year]-0 57 yrs GFR NonAA 33081-3 33 GFR [place] 26840-1 40 eGFR 24322-4 33 mL/min/1.7 eGFR AA* 72497-4 40 mL/min/1.7 COMPREHENSIVE METABOLIC PANEL - Collect Date/Time: 02/03/2017 06:10 Test Name Code Test Result Test Units Test Ref Range GLUCOSE 2345-7 80 MG/DL L=70 H=100 SODIUM 2951-2 141 MEQ/L L=135 H=148 POTASSIUM 2823-3 3.8 MEQ/L L=3.5 H=5.3 CHLORIDE 2075-0 112 MEQ/L L=96 H=110 CO2 2028-9 22 MEQ/L L=22 H=29 BUN 3094-0 17 MG/DL L=8 H=22 CREATININE 2160-0 1.3 MG/DL L=0.6 H=1.6 SGOT/AST 1920-8 13 IU/L L=10 H=40 SGPT/ALT 1742-6 6 IU/L L=8 H=54 ALK PHOS 6768-6 73 IU/L L=35 H=115 TOTAL PROTEIN 2885-2 6.1 G/DL L=5.5 H=8.5 ALBUMIN 1751-7 2.9 G/DL L=3.1 H=5.4 TOTAL BILI 1975-2 0.4 MG/DL L=0.0 H=1.5 CALCIUM 57506-2 8.5 MG/DL L=8.2 H=10.6 AGE 40812-8 57 yrs GFR NonAA 98173-1 57 GFR AA 11580-6 69 eGFR 27294-7 57 mL/min/1.7 eGFR AA* 97601-9 >60 N/A COMPREHENSIVE METABOLIC PANEL - Collect Date/Time: 2017 10:15 Test Name Code Test Result Test Units Test Ref Range GLUCOSE 2345-7 114 MG/DL L=70 H=100 SODIUM 2951-2 146 MEQ/L L=135 H=148 POTASSIUM 2823-3 4.9 MEQ/L L=3.5 H=5.3 CHLORIDE 2075-0 109 MEQ/L L=96 H=110 CO2 2028-9 25 MEQ/L L=22 H=29 BUN 3094-0 41 MG/DL L=8 H=22 CREATININE 2160-0 3.9 MG/DL L=0.6 H=1.6 SGOT/AST 1920-8 12 IU/L L=10 H=40 SGPT/ALT 1742-6 6 IU/L L=8 H=54 ALK PHOS 6768-6 85 IU/L L=35 H=115 TOTAL PROTEIN 2885-2 7.5 G/DL L=5.5 H=8.5 ALBUMIN 1751-7 3.6 G/DL L=3.1 H=5.4 TOTAL BILI 1975-2 0.3 MG/DL L=0.0 H=1.5 CALCIUM 76714-4 9.4 MG/DL L=8.2 H=10.6 AGE 57 yrs GFR NonAA 16 GFR AA 19 eGFR 16 mL/min/1.7 eGFR AA* 19 mL/min/1.7 LIPID PANEL - Collect Date/Time: 02/03/2017 06:10 Test Name Code Test Result Test Units Test Ref Range TRIGLYCERIDES 3043-7 111 MG/DL L=0 H=135 CHOLESTEROL 2093-3 145 MG/DL L=0 H=199 HDL 2085-9 28 MG/DL L=27 H=67 TOT CHOL/HDL 23414-5 5.2 L=0.0 H=5.0 LDL (CALC) 75770-0 95 MG/DL L=0 H=129 MAGNESIUM - Collect Date/Time: 02/03/2017 06:10 Test Name Code Test Result Test Units Test Ref Range MAGNESIUM 02858-8 1.5 MG/DL L=1.7 H=2.8 CREATININE UR RANDOM - Collect Date/Time: 02/02/2017 02:46 Test Name Code Test Result Test Units Test Ref Range CREAT UR RAND 2161-8 132.1 MG/DL SODIUM UR RANDOM - Collect Date/Time: 02/02/2017 02:46 Test Name Code Test Result Test Units Test Ref Range NA UR RANDOM 2955-3 87 MEQ/L RAPID DRUG SCREEN - Collect Date/Time: 02/02/2017 02:46 Test Name Code Test Result Test Units Test Ref Range Cannabinoids (THC) NEGATIVE N/A NEG: < 50 ng/ ml Phencyclidine (PCP) NEGATIVE N/A NEG: < 25 ng/ ml Cocaine NEGATIVE N/A NEG: < 300 ng/ml Methamphetamine NEGATIVE N/A NEG: < 1000 ng/ml Opiates NON-NEGATIVE N/A NEG: < 300 ng/ml Amphetamine NEGATIVE N/A NEG: < 1000 ng/ml Benzodiazepines NEGATIVE N/A NEG: < 300 ng/ml Tricyclic Antidepres NEGATIVE N/A NEG: < 300 ng/ ml Methadone NEGATIVE N/A NEG: < 300 ng/ml Barbiturates NEGATIVE N/A NEG: < 200 ng/ml Oxycodone NON-NEGATIVE N/A NEG: < 100 ng/ml Propoxyphene (PPX) NEGATIVE N/A NEG: < 300 ng/ ml CBC W/ AUTO DIFF (RFLX MAN DIFF IF IND) - Collect Date/Time: 02/03/2017 06:10 Test Name Code Test Result Test Units Test Ref Range WBC 67562-8 7.7 TH/CMM L=4.5 H=10.8 RBC 789-8 4.29 ML/CMM L=4.70 H=6.10 HGB 718-7 11.4 G/DL L=14.0 H=18.0 HCT 4544-3 37.4 % L=42.0 H=52.0 MCV 46737-9 87 FL L=81 H=99 MCH 05793-3 26.6 PG L=27.0 H=33.0 MCHC 22478-9 30.5 G/DL L=31.0 H=36[place] [address]-0 56 FL L=36 H=50 [place] [address]-5 17.7 % L=0.0 H=14.8 MPV 94257-8 9.9 FL L=9.3 H=12.5 PLT 777-3 253 TH/CMM L=130 H=440 NRBC# 90215-3 0.00 TH/CMM L=0.00 H=0.00 NRBC% 08340-9 0.0 /100WBC L=0.0 H=2.0 %NEUT 73352-6 67.8 % %LYMP 50249-0 15.1 % %MONO 65454-4 9.1 % %EOS 87303-8 6.8 % %BASO 88798-1 0.4 % #NEUT 14861-2 5.21 TH/CMM L=2.10 H=8.20 #LYMP 77308-0 1.16 TH/CMM L=0.90 H=5.20 #MONO 43217-8 0.70 TH/CMM L=0.16 H=1.00 #EOS 58336-1 0.52 TH/CMM L=0.00 H=0.80 #BASO 69503-7 0.03 TH/CMM L=0.00 H=0.20 MANUAL DIFF 90816-9 NOT IND N/A CBC W/ AUTO DIFF (RFLX MAN DIFF IF IND) - Collect Date/Time: 02/02/2017 06:05 Test Name Code Test Result Test Units Test Ref Range WBC 39281-9 6.3 TH/CMM L=4.5 H=10.8 RBC 789-8 4.74 ML/CMM L=4.70 H=6.10 HGB 718-7 12.6 G/DL L=14.0 H=18.0 HCT 4544-3 42.7 % L=42.0 H=52.0 MCV 84974-2 90 FL L=81 H=99 MCH 57413-7 26.6 PG L=27.0 H=33.0 MCHC 83929-4 29.5 G/DL L=31.0 H=36[place] [address]-5 59 FL L=36 H=50 [place] [address]-9 18.4 % L=0.0 H=14.8 MPV 44306-4 9.7 FL L=9.3 H=12.5 PLT 777-3 271 TH/CMM L=130 H=440 NRBC# 29475-3 0.00 TH/CMM L=0.00 H=0.00 NRBC% 53039-9 0.0 /100WBC L=0.0 H=2.0 %NEUT 63824-7 68.9 % %LYMP 34793-5 12.3 % %MONO 41320-1 9.4 % %EOS 78621-5 8.0 % %BASO 32999-6 0.6 % #NEUT 06062-6 4.31 TH/CMM L=2.10 H=8.20 #LYMP 52618-2 0.77 TH/CMM L=0.90 H=5.20 #MONO 79718-3 0.59 TH/CMM L=0.16 H=1.00 #EOS 36909-6 0.50 TH/CMM L=0.00 H=0.80 #BASO 41845-3 0.04 TH/CMM L=0.00 H=0.20 MANUAL DIFF 65584-8 NOT IND N/A CBC W/ AUTO DIFF (RFLX MAN DIFF IF IND) - Collect Date/Time: 2017 10:15 Test Name Code Test Result Test Units Test Ref Range WBC 53961-3 8.3 TH/CMM L=4.5 H=10.8 RBC 789-8 4.87 ML/CMM L=4.70 H=6.10 HGB 718-7 12.9 G/DL L=14.0 H=18.0 HCT 4544-3 43.5 % L=42.0 H=52.0 MCV 89 FL L=81 H=99 MCH 26.5 PG L=27.0 H=33.0 MCHC 29.7 G/DL L=31.0 H=36.0 RDW SD 60 FL L=36 H=50 RDW CV 18.8 % L=0.0 H=14.8 MPV 9.7 FL L=9.3 H=12.5 PLT 777-3 309 TH/CMM L=130 H=440 NRBC# 0.02 TH/CMM L=0.00 H=0.00 NRBC% 0.2 /100WBC L=0.0 H=2.0 %NEUT 71.9 % %LYMP 10.7 % %MONO 8.1 % %EOS 7.3 % %BASO 0.5 % #NEUT 5.95 TH/CMM L=2.10 H=8.20 #LYMP 0.88 TH/CMM L=0.90 H=5.20 #MONO 0.67 TH/CMM L=0.16 H=1.00 #EOS 0.60 TH/CMM L=0.00 H=0.80 #BASO 0.04 TH/CMM L=0.00 H=0.20 MANUAL DIFF NOT IND N/A UA ROUTINE C&S IF IND - Collect Date/Time: 02/02/2017 02:46 Test Name Code Test Result Test Units Test Ref Range COLOR YELLOW N/A NL: YELLOW APPEARANCE CLEAR N/A NL: CLEAR SPEC GRAV 1.015 N/A NL: 1.002 - 1.022 pH 5.5 N/A NL: 5 - 9 PROTEIN TRACE N/A NL: NEGATIVE mg/dl GLUCOSE NEGATIVE N/A NL: NEGATIVE mg/dl KETONE NEGATIVE N/A NL: NEGATIVE mg/dl BILIRUBIN NEGATIVE N/A NL: NEGATIVE BLOOD NEGATIVE N/A NL: NEGATIVE NITRITE NEGATIVE N/A NL: NEGATIVE LEUK SCREEN NEGATIVE N/A NL: NEGATIVE MICRO INDICATED? SEE BELOW N/A WBC/HPF 0-5 N/A NL: NEGATIVE RBC/HPF RARE N/A NL: NEGATIVE CASTS/LPF FEW HYALINE N/A NL: NEGATIVE CRYSTALS NEGATIVE N/A NL: NEGATIVE MUCOUS THRDS FEW N/A NL: NEGATIVE BACTERIA FEW N/A NL: NEGATIVE EPITH CELLS FEW SQUAMOUS N/A NL: NEGATIVE TRICHOMONAS NEGATIVE N/A NL: NEGATIVE YEAST NEGATIVE N/A NL: NEGATIVE CULT SET UP? NO N/A BNP - Collect Date/Time: 2017 10:15 Test Name Code Test Result Test Units Test Ref Range BNP 05813-4 94 PG/ML L=0 H=100 HEMOGLOBIN A1C - Collect Date/Time: 02/03/2017 06:10 Test Name Code Test Result Test Units Test Ref Range HGB A1C 44785-8 6.2 % L=4.0 H=6.4 Est Avg Glucose 45771-8 131.2 mg/dL IRON PANEL - Collect Date/Time: 02/03/2017 06:10 Test Name Code Test Result Test Units Test Ref Range IRON TOTAL 2498-4 25 MCG/DL L=50 H=212 Transferrin 3034-6 182 MG/DL L=175 H=375 TIBC Calculation 2500-7 228 MG/DL L=250 H=450 %Saturation Calc 2500-7 11 % L=15 H=55 TROPONIN-I ADV - Collect Date/Time: 2017 10:15 Test Name Code Test Result Test Units Test [place] [address]-5 0.04 ng/mL L=0.04 H=0.40 Function Status Unknown or Not Available. History of Immunizations Immunization Code Date Pneumococcal conjugate PCV 13 133 07/09/2016 influenza, injectable, quadrivalent, preservative free 150 2015 Plan of Treatment Unknown or Not Available. Social History Smoking Status Code Start Date End Date Current every day smoker [id number] Vital Signs Vital Sign Value Unit Date/Time Recent/Initial? Weight Measured 233.4 [lb_av] 2017 14:55 Initial VS BP Systolic 122 mm[Hg] 2017 14:55 Initial VS BP Diastolic 74 mm[Hg] 2017 14:55 Initial VS Respiratory Rate 18 /min 2017 14:55 Initial VS Heart Rate 81 /min 2017 14:55 Initial VS O2 % BldC Oximetry 97 % 2017 14:55 Initial VS Body Temperature 96.6 [degF] 2017 14:55 Initial VS Weight Measured 256.4 [lb_av] 02/03/2017 02:41 Most Recent VS BP Systolic 176 mm[Hg] 02/03/2017 11:20 Most Recent VS BP Diastolic 109 mm[Hg] 02/03/2017 11:20 Most Recent VS Respiratory Rate 20 /min 02/03/2017 11:20 Most Recent VS Heart Rate 64 /min 02/03/2017 11:20 Most Recent VS O2 % BldC Oximetry 100 % 02/03/2017 11:20 Most Recent VS Body Temperature 96.9 [degF] 02/03/2017 11:20 Most Recent VS Function Status Unknown or Not Available. Goals Unknown or Not Available. ASSESSMENTS Unknown or Not Available. Health Concerns Section Unknown or Not Available.
--- OUTSIDE RECORDS SUMMARY | 2018-01-22 16:03 | XMS REPORT ---
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 Name Role Phone Katty Jefferson PCP Allergies [...] for 30 days Discontinued by Hospitalist at [place] Augmentin 875-125 mg oral tablet 11/07/2010 03/05/2011 [...] AM Kenalog 40 Mg [facility]#6316-7521-85 Reviewed 11/03/2009 12:00 AM PROTHROMBIN TIME Reviewed 07/26/2011 12:00 AM X-RAY EXAM OF ABDOMEN Reviewed 10/12/2011 12:00 AM EXTREMITY STUDY Reviewed 01/01/2012 12:00 AM Rocephin 1 gm [facility]#[address]-58 Reviewed 01/16/2012 12:00 AM DRAIN/INJ JOINT/BURSA W/O US Reviewed 01/16/2012 12:00 AM Kenalog per 10Mg [facility]#[address]-19(Srinath) Reviewed 02/05/2012 12:[address] ABDOMEN W/O & W/DYE Reviewed 02/05/2012 12:[address] PELVIS W/O & W/DYE Reviewed 05/29/2012 12:00 AM DRAIN/INJ JOINT/BURSA W/O US Reviewed 05/29/2012 12:00 AM SYNVISC, Per 1 Mg (2ml) [facility] [address]-98 Reviewed 06/05/2012 12:00 AM DRAIN/INJ JOINT/BURSA W/O US Reviewed 06/05/2012 12:00 AM SYNVISC, Per 1 Mg (2ml) [facility] [address]-97 Reviewed 06/12/2012 12:00 AM DRAIN/INJ JOINT/BURSA W/O US Reviewed 06/12/2012 12:00 AM SYNVISC, Per 1 Mg (2ml) [facility] [address]-58 Reviewed 07/16/2012 12:00 AM Hepatobiliary ductal system imaging with functional assessment Reviewed 07/16/2012 12:00 AM Decadron 8 mg [facility]#13147552359 Reviewed 07/16/2012 12:00 AM Depo-Medrol 80mg [facility]#13058308773 Reviewed 07/16/2012 12:00 AM COMPREHEN METABOLIC PANEL Reviewed 07/16/2012 12:00 AM LIPID PANEL Reviewed 07/16/2012 12:00 AM Flu Injection 3 Years And Above [facility]# [address]-21 RHC Reviewed 08/19/2012 12:00 AM METABOLIC PANEL TOTAL CA Reviewed 12/21/2009 12:[address] ABDOMEN W/O & W/DYE Reviewed 10/02/2012 12:00 AM CHEST X-RAY 2VW FRONTAL&LATL Reviewed 10/09/2012 12:00 AM Decadron 8 mg [facility]#40685001980 Reviewed 10/09/2012 12:00 AM Depo-Medrol 80mg [facility]#89382198059 Reviewed 12/09/2012 12:00 AM CHEST X-RAY 2VW [...] Per 1 Mg (6ml) [facility] [address]-75 Reviewed 02/26/2013 12:[address] NECK SPINE W/O & W/DYE Reviewed 04/07/2013 12:00 AM INJECT TRIGGER POINTS 3/> Reviewed 04/07/2013 12:00 AM Kenalog per 10Mg [facility]#[address]-86(Srinath) Reviewed 07/21/2013 12:00 AM CHEST X-RAY 2VW FRONTAL&LATL Reviewed 07/21/2013 12:00 AM Decadron 8 mg [place]# [address]-77 Reviewed 07/21/2013 12:00 AM Depo-Medrol 80 mg [place]#[address]-73 Reviewed 07/21/2013 12:00 AM Rocephin 500 mg [facility]#9403-4955-00 Reviewed 09/22/2013 12:00 AM CHEST X-RAY 2VW FRONTAL&LATL Returned 10/29/2013 12:00 AM X-RAY EXAM OF ABDOMEN Reviewed 12/08/2013 12:00 AM THER/PROPH/DIAG INJ SC/IM Reviewed 12/08/2013 12:00 AM Decadron, Per 1 Mg [place]# [address]-44 Reviewed 12/08/2013 12:00 AM Depo-Medrol, Per 80 Mg [facility]#9500-6656-52 Reviewed 12/08/2013 12:00 AM CHEST X-RAY 2VW [...] AM Decadron 8 mg [facility]# [address]-88 Reviewed 01/05/2014 12:00 AM Depo-Medrol 80 mg [facility]#[address]-70 Reviewed 01/05/2014 12:00 AM Rocephin 1 gram ND#3013-6195-31 Reviewed 03/15/2010 12:00 AM PROTHROMBIN TIME Reviewed [...] Kenalog per 10Mg [facility]#[address]-13(Srinath) Reviewed 05/05/2014 12:00 AM DRAIN/INJ JOINT/BURSA W/O US Reviewed 05/05/2014 12:00 AM SYNVISC-ONE, Per 1 Mg (6ml) [facility] [address]-51 Reviewed 05/06/2014 12:00 AM COMPREHEN METABOLIC PANEL [...] 12:00 AM Rocephin 500 mg [facility]#[address]-41 Reviewed 07/14/2014 12:00 AM Fluzone MEDICARE Only Reviewed 11/29/2010 12:00 AM INJECT TRIGGER POINTS 3/> Reviewed 11/29/2010 12:00 AM Kenalog per 10Mg [facility]#[address]-87(Srinath) Reviewed 07/14/2014 12:00 AM Decadron injection Reviewed [...] Date Medicare Part A Medicare Part A [id number] N/A [facility] [place] [facility] [employer] [place] [employer] [id number] N/A [facility] Assistance [facility] Medical Assistance Prog [id number] N/A Medicare Part B Medicare Of [place] [id number] Friday, 2008 History of Encounters Visit Date [...] DO 01/12/2015 Office visit Katty CRAIG 12/16/2014 [facility] Alfa Platt MD 12/14/2014 Voided [...] Ama Barrios MD 09/07/2014 Office visit Melecio Jaaj DO 08/16/2014 Nurse visit Katty CRAIG 07/19/2014 Office visit Katty Jefferson [employer]OWER 07/14/2014 Office visit Melecio Jaja DO 06/21/2014 Office visit Katty Jefferson NEON GLASS BLOWER 05/20/2014 Office visit Melecio Wilkinson DO 05/14/2014 Office visit Melecio Wilkinson DO 05/05/2014 Office visit Katty DURÁNP 04/26/2014 Office visit Katty DURÁNP 03/24/2014 Office visit Katty CRAIG 02/24/2014 Office visit Katty DURÁNP 01/05/2014 Office visit Melecio Jaja DO 12/23/2013 Office visit Katty DURÁNP 12/23/2013 Office visit Melecio Wilkinson DO 12/18/2013 Office visit Janis Landon [employer] MECH[employer]IC 12/08/2013 Office visit Janis Landon 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
--- OUTSIDE RECORDS SUMMARY | 2018-01-22 16:09 | XMS REPORT ---
Author Author Melecio Wilkinson [facility] Address [address] [place] [phone] Care Team Providers Care Motion Picture Set Grip Name Role Phone Melecio Wilkinson PCP Unavailable [...] mg) by oral route every 8 hours prednisone 10 mg oral tablet 12/21/2016 take 1 tablet (10 mg) by oral route once daily Name [...] for 30 days Discontinued by Hospitalist at [place] niacin 500 mg oral tablet 10/10/2016 take [...] route every 12 hours for 30 days [place] stoned Amitiza 24 mcg oral capsule 05/03/2016 [...] HC BMI BSA BMI Percentile O2 Sat(%) 12/21/2016 8:08:00 AM 128 mmHg 72 mmHg [...] 07/11/2015 12:00 AM Kenalog, Per 10 Mg [facility]#7879-6009-96 Reviewed 12/07/2014 12:00 AM OFFICE/OUTPATIENT VISIT EST Reviewed 06/19/2011 12:00 AM DRAIN/INJ JOINT/BURSA W/O US Reviewed 06/19/2011 12:00 AM Kenalog 40 Mg [facility]#9989-8436-15 Reviewed 08/25/2015 12:00 AM OFFICE/OUTPATIENT VISIT EST Reviewed 08/23/2015 12:00 AM Decadron, Per 1 Mg [facility]# [address]-62 Reviewed 08/23/2015 12:00 AM Depo-Medrol, Per 80 Mg [facility]#[address]-68 Reviewed 09/07/2015 12:00 AM X-RAY EXAM L-S SPINE /3 VWS Reviewed 09/07/2015 12:00 AM COMPLETE CBC W/AUTO DIFF WBC Reviewed 09/07/2015 12:00 AM ASSAY THYROID STIM HORMONE Reviewed 09/07/2015 12:00 AM COMPREHEN METABOLIC PANEL Reviewed 09/07/2015 12:00 AM URNLS DIP STICK/TABLET RGNT AUTO W/O MICROSCOPY Reviewed 09/26/2015 12:00 AM Pain Management Consult Reviewed 11/03/2009 12:00 AM PROTHROMBIN TIME Reviewed 10/23/2015 12:00 AM Decadron, Per 1 Mg [facility]# [address]-00 Reviewed 10/23/2015 12:00 AM Depo-Medrol, Per 80 Mg [facility]#[address]-03 Reviewed 07/26/2011 12:00 AM X-RAY EXAM OF ABDOMEN Reviewed 11/21/2015 12:00 AM Orthopedics Consultation Reviewed 11/21/2015 12:00 AM Physical Therapy Consultation Reviewed 12/20/2015 12:00 AM EXTREMITY STUDY Reviewed 10/12/2011 12:00 AM EXTREMITY STUDY Reviewed 05/10/2016 12:00 AM CONTRAST X-RAY OF SHOULDER Reviewed 07/09/2016 12:00 AM PNEUMOCOCCAL VACC 13 RIP IM Reviewed 08/08/2016 12:00 AM Decadron, Per 1 Mg [facility]# [address]-38 Reviewed 08/08/2016 12:00 AM Depo-Medrol, Per 80 Mg [facility]#[address]-46 Reviewed 01/01/2012 12:00 AM AIRWAY INHALATION TREATMENT Reviewed 01/01/2012 12:00 AM Rocephin 1 gm [facility]#[address]-17 Reviewed 01/16/2012 12:00 AM DRAIN/INJ JOINT/BURSA W/O US Reviewed 01/16/2012 12:00 AM Kenalog per 10Mg [facility]#[address]-30(Srinath) Reviewed 09/26/2016 12:00 AM CHEST X-RAY 2VW [...] AM SYNVISC, Per 1 Mg (2ml) [facility] [address]-41 Reviewed 06/05/2012 12:00 AM DRAIN/INJ JOINT/BURSA W/O US Reviewed 06/05/2012 12:00 AM SYNVISC, Per 1 Mg (2ml) [facility] [address]-83 Reviewed 06/12/2012 12:00 AM DRAIN/INJ JOINT/BURSA W/O US Reviewed 06/12/2012 12:00 AM SYNVISC, Per 1 Mg (2ml) [facility] [address]-97 Reviewed 07/16/2012 12:00 AM Hepatobiliary ductal system imaging with functional assessment Reviewed 07/16/2012 12:00 AM Decadron 8 mg [facility]#76809160901 Reviewed 07/16/2012 12:00 AM Depo-Medrol 80mg [facility]#[id number] Reviewed 07/16/2012 12:00 AM COMPREHEN METABOLIC PANEL Reviewed 07/16/2012 12:00 AM LIPID PANEL Reviewed 07/16/2012 12:00 AM Flu Injection 3 Years And Above [facility]# [address]-25 RHC Reviewed 08/19/2012 12:00 AM METABOLIC PANEL TOTAL CA Reviewed 12/21/2009 12:[address] ABDOMEN W/O & W/DYE Reviewed 10/02/2012 12:00 AM CHEST X-RAY 2VW FRONTAL&LATL Reviewed 10/09/2012 12:00 AM Decadron 8 mg [facility]#[id number] Reviewed 10/09/2012 12:00 AM Depo-Medrol 80mg [facility]#22602069896 Reviewed 12/09/2012 12:00 AM CHEST X-RAY 2VW [...] AM SYNVISC-ONE, Per 1 Mg (6ml) [facility] [address]-77 Reviewed 02/26/2013 12:00 AM Physical Therapy Reviewed 02/26/2013 12:[address] NECK SPINE W/O & W/DYE Reviewed 04/07/2013 12:00 AM INJECT TRIGGER POINTS 3/> Reviewed 04/07/2013 12:00 AM Kenalog per 10Mg [facility]#[address]-43(Srinath) Reviewed 07/21/2013 12:00 AM CHEST X-RAY 2VW FRONTAL&LATL Reviewed 07/21/2013 12:00 AM Decadron 8 mg [facility]# [address]-07 Reviewed 07/21/2013 12:00 AM Depo-Medrol 80 mg [facility]#[address]-91 Reviewed 07/21/2013 12:00 AM Rocephin 500 mg [facility]#3754-7604-12 Reviewed 09/22/2013 12:00 AM CHEST X-RAY 2VW FRONTAL&LATL Reviewed 10/29/2013 12:00 AM X-RAY EXAM OF ABDOMEN Reviewed 12/08/2013 12:00 AM THER/PROPH/DIAG INJ SC/IM Reviewed 12/08/2013 12:00 AM Decadron, Per 1 Mg [facility]# [address]-98 Reviewed 12/08/2013 12:00 AM Depo-Medrol, Per 80 Mg [facility]#2764-0943-92 Reviewed 12/08/2013 12:00 AM CHEST X-RAY 2VW [...] 01/05/2014 12:00 AM Decadron 8 mg [facility]# [address]-71 Reviewed 01/05/2014 12:00 AM Depo-Medrol 80 mg [facility]#[address]-70 Reviewed 01/05/2014 12:00 AM Rocephin 1 gram [facility]#1032-7100-07 Reviewed 03/15/2010 12:00 AM PROTHROMBIN TIME Reviewed [...] Reviewed 09/28/2010 12:00 AM Kenalog per 10Mg [facility]#[address]-46(Srinath) Reviewed 05/05/2014 12:00 AM DRAIN/INJ JOINT/BURSA W/O US Reviewed 05/05/2014 12:00 AM SYNVISC-ONE, Per 1 Mg (6ml) [facility] [address]-07 Reviewed 05/06/2014 12:00 AM COMPREHEN METABOLIC PANEL [...] 11/07/2010 12:00 AM Rocephin 500 mg [facility]#[address]-30 Reviewed 07/14/2014 12:00 AM Fluzone MEDICARE Only Reviewed 11/29/2010 12:00 AM INJECT TRIGGER POINTS 3/> Reviewed 11/29/2010 12:00 AM Kenalog per 10Mg [facility]#[address]-57(Srinath) Reviewed 07/14/2014 12:00 AM Decadron injection Reviewed [...] CVX Pneumococcal 07/09/2016 [facility] Prevnar 13 [id number] Intramuscular Right Deltoid 07/09/2016 07/28/2015 133 History [...] Number Start Date Medicare RHC Medicare RHC [id number] N/[place] [employer] [place] [employer] [id number] N/A [place] [employer] Medicare [place] [employer] Ins [phone] N/A [place] Medical Assistance [facility] Medical Assistance Prog [id number] N/A Medicare Part B Medicare Of [place] [id number] Friday, 2008 Medicare Part A Medicare Part A [id number] N/A [facility] - RHC - Community [facility] RHC Comm [id number] Wednesday, 2015 [employer] [place] [employer] [place] [id number] Wednesday, 2015 Medicare Part A Medicare - Lab/Xray [id number] N/A History of Encounters Visit Date Visit Type Provider 12/21/2016 Office visit Melecio Wilkinson DO 11/20/2016 Office visit Melecio Wilkinson DO 11/05/2016 Office visit Melecio Wilkinson DO 10/23/2016 Office visit Melecio Wilkinson DO 10/10/2016 Office visit Melecio Wilkinson DO 09/26/2016 Office visit Melecio Wilkinson DO 08/28/2016 Office visit Melecio Cruzte DO 08/08/2016 Office visit Melecio Wilkinson DO 07/09/2016 Office visit Melecio Wilkinson DO 07/06/2016 Hospital Ama Barrios MD 07/06/2016 Hospital David Paul MD 07/05/2016 Surgery Ama Barrios MD 07/03/2016 Laboratory W Jaden Barrios MD 06/07/2016 Office visit Melecio Cruzte DO 05/03/2016 Office visit Melecio Cruzte DO 04/11/2016 Office visit Melecio Jaja DO 02/17/2016 Office visit Melecio Jaja DO 01/19/2016 Office visit Melecio Cruzte DO 12/20/2015 Office visit Melecio Cruzte DO 11/21/2015 Office visit Melecio Cruzte DO 10/17/2015 Office visit Melecio Jaja DO 09/26/2015 Office visit Melecio Jaja DO 09/07/2015 Office visit Katty CRAIG 08/25/2015 Nurse visit Katty CRAIG 08/23/2015 Office visit Melecio Cruzte DO 08/08/2015 Office visit Melecio Cruzte DO 08/05/2015 Office visit Katty CRAIG 07/11/2015 Office visit Katty CRAIG 07/06/2015 Office visit Katty CRAIG 06/27/2015 Office visit Melecio Cruzte DO 06/20/2015 Office visit Melecio Jaja DO 06/15/2015 Office visit Katty CRAIG 06/02/2015 Office visit Melecio Jaja DO 05/16/2015 Office visit Katty CRAIG 05/16/2015 Office visit 05/16/2015 Office visit Melecio [place] DO 05/09/2015 Office visit Melecio Jaja DO [facility] 11/29/2014 [facility] Magi Powers [...] 01/06/2013 Office visit Gorge Yo MD 12/09/2012 [facility] Ama Barrios MD 12/09/2012 Office visit Stephanie Richardson [employer] 11/26/2012 Office visit Gorge Yo MD [...] 05/14/2012 Office visit Gorge Yo MD 05/12/2012 [facility] DO 05/11/2012 [facility] 03/13/2012 Office visit Gorge Yo MD 02/05/2012 [...]
--- OUTSIDE RECORDS SUMMARY | 2018-01-22 16:14 | XMS REPORT ---
Author Author Melecio Wilkinson [facility] Address [address] [place], [place] [id number] Care Team Providers Care Care Process Manager Name Role Phone Melecio Wilkinson PCP Melecio [...] rpm 98 F 240 lbs 67 in 37.5889 kg/m 2.2685 m 95 % 11/07/2017 8:20:00 AM 142 mmHg [...] 07/11/2015 12:00 AM Kenalog, Per 10 Mg [facility]#2432-3956-14 Reviewed 12/07/2014 12:00 AM OFFICE/OUTPATIENT VISIT EST Reviewed 06/19/2011 12:00 AM DRAIN/INJ JOINT/BURSA W/O US Reviewed 06/19/2011 12:00 AM Kenalog 40 Mg Im-[facility]#9930-3665-20 Reviewed 08/25/2015 12:00 AM OFFICE/OUTPATIENT VISIT EST Reviewed 08/23/2015 12:00 AM Decadron, Per 1 Mg [facility]# [address]-57 Reviewed 08/23/2015 12:00 AM Depo-Medrol, Per 80 Mg [facility]#[address]-75 Reviewed 09/07/2015 12:00 AM X-RAY EXAM L-S [...] 10/23/2015 12:00 AM Decadron, Per 1 Mg [facility]# [address]-71 Reviewed 10/23/2015 12:00 AM Depo-Medrol, Per 80 Mg [facility]#[address]-56 Reviewed 07/26/2011 12:00 AM X-RAY EXAM OF ABDOMEN Reviewed 11/21/2015 12:00 AM Orthopedics Consultation Reviewed 11/21/2015 12:00 AM Physical Therapy Consultation Reviewed 12/20/2015 12:00 AM EXTREMITY STUDY Reviewed 10/12/2011 12:00 AM EXTREMITY STUDY Reviewed 05/10/2016 12:00 AM CONTRAST X-RAY OF SHOULDER Reviewed 07/09/2016 12:00 AM PNEUMOCOCCAL VACC 13 RIP IM Reviewed 08/08/2016 12:00 AM Decadron, Per 1 Mg [facility]# [address]-82 Reviewed 08/08/2016 12:00 AM Depo-Medrol, Per 80 Mg [facility]#[address]-54 Reviewed 01/01/2012 12:00 AM AIRWAY INHALATION TREATMENT Reviewed 01/01/2012 12:00 AM Rocephin 1 gm [facility]#[address]-11 Reviewed 01/16/2012 12:00 AM DRAIN/INJ JOINT/BURSA W/O US Reviewed 01/16/2012 12:00 AM Kenalog per 10Mg [facility]#[address]-00(Srinath) Reviewed 09/26/2016 12:00 AM CHEST X-RAY 2VW [...] 12:00 AM SYNVISC, Per 1 Mg (2ml) [facility] [address]-48 Reviewed 06/05/2012 12:00 AM DRAIN/INJ JOINT/BURSA W/O US Reviewed 06/05/2012 12:00 AM SYNVISC, Per 1 Mg (2ml) [facility] [address]-17 Reviewed 06/12/2012 12:00 AM DRAIN/INJ JOINT/BURSA W/O US Reviewed 06/12/2012 12:00 AM SYNVISC, Per 1 Mg (2ml) [facility] [address]-49 Reviewed 06/06/2017 12:00 AM Decadron 4mg Injection Reviewed 06/06/2017 12:00 AM Depo-Medrol 40mg Injection Reviewed 06/06/2017 12:[address] ABD & PELV 1/> REGNS Reviewed 07/16/2012 12:00 AM Hepatobiliary ductal system imaging with functional assessment Reviewed 07/16/2012 12:00 AM Decadron 8 mg [facility]#[id number] Reviewed 07/16/2012 12:00 AM Depo-Medrol 80mg [facility]#68508992489 Reviewed 07/16/2012 12:00 AM COMPREHEN METABOLIC PANEL Reviewed 07/16/2012 12:00 AM LIPID PANEL Reviewed 07/16/2012 12:00 AM Flu Injection 3 Years And Above [facility]# [address]-55 RHC Reviewed 08/19/2012 12:00 AM METABOLIC PANEL TOTAL CA Reviewed 12/21/2009 12:[address] ABDOMEN W/O & W/DYE Reviewed 10/22/2017 12:00 AM Decadron 4mg Injection Reviewed 10/22/2017 12:00 AM Depo-Medrol 40mg Injection Reviewed 10/02/2012 12:00 AM CHEST X-RAY 2VW FRONTAL&LATL Reviewed 10/09/2012 12:00 AM Decadron 8 mg [facility]#88722791814 Reviewed 10/09/2012 12:00 AM Depo-Medrol 80mg [facility]#39942029786 Reviewed 12/09/2012 12:00 AM CHEST X-RAY 2VW [...] 12:00 AM SYNVISC-ONE, Per 1 Mg (6ml) [facility] [address]-55 Reviewed 02/26/2013 12:00 AM Physical Therapy Reviewed 02/26/2013 12:[address] NECK SPINE W/O & W/DYE Reviewed 04/07/2013 12:00 AM INJECT TRIGGER POINTS 3/> Reviewed 04/07/2013 12:00 AM Kenalog per 10Mg [facility]#[address]-98(Srinath) Reviewed 07/21/2013 12:00 AM CHEST X-RAY 2VW FRONTAL&LATL Reviewed 07/21/2013 12:00 AM Decadron 8 mg [facility]# [address]-74 Reviewed 07/21/2013 12:00 AM Depo-Medrol 80 mg [facility]#[address]-31 Reviewed 07/21/2013 12:00 AM Rocephin 500 mg [facility]#8056-6394-36 Reviewed 09/22/2013 12:00 AM CHEST X-RAY 2VW FRONTAL&LATL Reviewed 10/29/2013 12:00 AM X-RAY EXAM OF ABDOMEN Reviewed 12/08/2013 12:00 AM THER/PROPH/DIAG INJ SC/IM Reviewed 12/08/2013 12:00 AM Decadron, Per 1 Mg [facility]# [address]-00 Reviewed 12/08/2013 12:00 AM Depo-Medrol, Per 80 Mg [facility]#9194-2230-87 Reviewed 12/08/2013 12:00 AM CHEST X-RAY 2VW [...] Reviewed 01/05/2014 12:00 AM Decadron 8 mg [facility]# [address]-25 Reviewed 01/05/2014 12:00 AM Depo-Medrol 80 mg [facility]#[address]-05 Reviewed 01/05/2014 12:00 AM Rocephin 1 gram [facility]#0501-7589-43 Reviewed 03/15/2010 12:00 AM PROTHROMBIN TIME Reviewed [...] AM Kenalog per 10Mg [facility]#[address]-00(Srinath) Reviewed 05/05/2014 12:00 AM DRAIN/INJ JOINT/BURSA W/O US Reviewed 05/05/2014 12:00 AM SYNVISC-ONE, Per 1 Mg (6ml) [facility] [address]-77 Reviewed 05/06/2014 12:00 AM COMPREHEN METABOLIC PANEL [...] Reviewed 11/07/2010 12:00 AM Rocephin 500 mg [facility]#[address]-82 Reviewed 07/14/2014 12:00 AM Fluzone MEDICARE Only Reviewed 11/29/2010 12:00 AM INJECT TRIGGER POINTS 3/> Reviewed 11/29/2010 12:00 AM Kenalog per 10Mg [facility]#[address]-06(Srinath) Reviewed 07/14/2014 12:00 AM Decadron injection Reviewed [...] Vis Given Vis Pub CVX Pneumococcal 07/09/2016 Kcxng-Gvwmtv-CpzwetxMilly WAL PREVNAR 13 [id number] Intramuscular Right Deltoid 07/09/2016 07/28/2015 133 History [...] Number Start Date Medicare RHC Medicare RHC [id number] [place] [employer] [place] [employer] [place] [id number] N/A [place] Life Medicare [place] Life Ins [id number] N/A [place] Medical Assistance [facility] Medical Assistance Prog [id number] N/A Medicare Part B Medicare Of [place] [id number] Friday, 2008 Medicare Part A Medicare Part A [id number] N/A [facility] - RHC - Community Plan [facility] RHC Comm [id number] Wednesday, 2015 [employer] [place] [employer] [place] [id number] Wednesday, 2015 Medicare Part A Medicare - Lab/Xray [id number] N/A History of Encounters Visit Date Visit Type Provider 11/14/2017 Office visit Melecio Wilkinson DO 11/07/2017 Office visit Melecio Wilkinson DO 10/22/2017 Office visit Melecio Wilkinson DO 08/27/2017 Office visit Melecio Wilkinson DO 07/22/2017 Office visit Melecio Wilkinson DO 06/06/2017 Office visit Melecio Wilkinson DO 04/03/2017 Office visit Melecio Wilkinson DO 04/01/2017 Hospital Ama Barrios MD 03/28/2017 Office visit Melecio Wilkinson DO 03/11/2017 Office visit Melecio Wilkinson DO 03/05/2017 [facility] Ama Barrios MD 02/22/2017 Office visit Melecio Wilkinson DO 02/05/2017 Office visit Melecio Wilkinson DO 2017 [facility] Rasta Mckeon MD 2017 [facility] Ama Barrios MD 01/09/2017 Office visit Melecio Wilkinson DO 01/01/2017 [facility] Seth Devlin DO 12/31/2016 [facility] Rasta Mckeon MD 12/31/2016 [facility] Ama Barrios MD 12/21/2016 Office visit Melecio Wilkinson DO 11/20/2016 Office visit Melecio Wilkinson DO 11/05/2016 Office visit Melecio Wilkinson DO 10/23/2016 Office visit Melecio Wilkinson DO 10/10/2016 Office visit Melecio Wilkinson DO 09/26/2016 Office visit Melecio Wilkinson DO 08/28/2016 Office visit Melecio [place] DO 08/08/2016 Office visit Melecio Jaja DO [...] Melecio Jaja DO 11/21/2015 Office visit Melecio Jjaa DO 10/17/2015 Office visit Melecio Jaja DO [...] Melecio Jaja DO 02/17/2015 Office visit Melecio Wilkinson DO 02/17/2015 Office visit Katty CRAIG 01/19/2015 Office visit Katty CRAIG 01/13/2015 Office visit Melecio [place] DO 01/12/2015 Office visit Katty CRAIG 12/16/2014 [facility] Alfa Platt MD 12/14/2014 Voided Melecio [place] DO 12/08/2014 Office visit Alfa Platt MD 12/08/2014 Office visit Melecio [place] DO 12/07/2014 Nurse visit Riri Salazar MD 12/02/2014 Hospital Alfa Platt MD 12/02/2014 [facility] Magi Powers MD 11/29/2014 Hospital Magi Powers MD 11/29/2014 Voided Katty CRAIG 11/11/2014 Office visit 11/11/2014 Office visit Katty CRAIG 11/11/2014 Office visit Melecio Jaja DO 10/14/2014 Office visit Katty CRAIG 09/14/2014 Office visit Katty CRAIG 09/08/2014 [facility] Ama Barrios MD 09/07/2014 Office [...] MD 12/09/2012 Office visit Stephanie Mitzi Richardson [employer] 11/26/2012 Office visit Gorge Yo MD 10/30/2012 [...] 05/14/2012 Office visit Gorge Yo MD 05/12/2012 [facility] DO 05/11/2012 [facility] DO 03/13/2012 Office visit Gorge Yo MD 02/05/2012 Office visit Melecio Wilkinson DO 01/31/2012 Office visit Gorge Yo MD 01/16/2012 Office visit Gorge Yo MD 01/01/2012 Office visit Melecio Wilkinson DO 11/16/2011 Office visit Gorge Yo MD 10/05/2011 Office visit Gorge Yo MD 10/01/2011 Office visit Janis Navarrete [employer] 09/06/2011 Office visit Gorge Yo MD 07/26/2011 [...] 04/06/2010 Office visit Gorge Yo MD 04/02/2010 [facility] Alfonso Camacho MD 03/31/2010 Laboratory Alfonso Camacho MD 03/31/2010 Laboratory Alfonso Camacho MD 03/31/2010 [facility] Alfonso Camacho MD 03/21/2010 Procedures [...] visit Melecio Wilkinson DO 10/01/2009 Laboratory Gill aMurice MD 09/08/2009 Office visit Gorge Yo MD 08/25/2009 Procedures Gorge Yo MD 08/23/2009 Office visit Gorge Yo MD 07/06/2009 Laboratory Vamshi Aguero MD 06/27/2009 Office visit Gorge Yo MD 06/17/2009 Office visit Vamshi Aguero MD 05/24/2009 Office visit Gorge Yo MD
--- OUTSIDE RECORDS SUMMARY | 2018-01-22 16:19 | XMS REPORT ---
Author Author Melecio Wilkinson [facility] Address [address] [place] [phone] Care Team Providers Care Greens Tier Name Role Phone Melecio Wilkinson PCP Unavailable [...] oral route once daily for 30 days Name Start Date Expiration [...] for 30 days Discontinued by Hospitalist at [place] Augmentin 875-125 mg oral tablet 11/07/2010 03/05/2011 [...] route every 12 hours for 30 days May stoned Problem List Description Status Onset SI [...] AM Kenalog, Per 10 Mg [facility]#2598-4487-11 Reviewed 06/19/2011 12:00 AM DRAIN/INJ JOINT/BURSA W/O US Reviewed 06/19/2011 12:00 AM Kenalog 40 Mg Im-Nd#4926-4327-87 Reviewed 08/25/2015 12:00 AM OFFICE/OUTPATIENT VISIT EST Reviewed 08/23/2015 12:00 AM Decadron, Per 1 Mg [facility]# [address]-91 Reviewed 08/23/2015 12:00 AM Depo-Medrol, Per 80 Mg [facility]#[address]-43 Reviewed 09/07/2015 12:00 AM X-RAY EXAM L-S [...] 12:00 AM Rocephin 1 gm [facility]#[address]-12 Reviewed 01/16/2012 12:00 AM DRAIN/INJ JOINT/BURSA W/O US Reviewed 01/16/2012 12:00 AM Kenalog per 10Mg [facility] [place]#[address]-28(Srinath) Reviewed 02/05/2012 12:[address] ABDOMEN W/O & W/DYE Reviewed 02/05/2012 12:[address] PELVIS W/O & W/DYE Reviewed 05/29/2012 12:00 AM DRAIN/INJ JOINT/BURSA W/O US Reviewed 05/29/2012 12:00 AM SYNVISC, Per 1 Mg (2ml) [facility] [address]-05 Reviewed 06/05/2012 12:00 AM DRAIN/INJ JOINT/BURSA W/O US Reviewed 06/05/2012 12:00 AM SYNVISC, Per 1 Mg (2ml) [facility] [address]-14 Reviewed 06/12/2012 12:00 AM DRAIN/INJ JOINT/BURSA W/O US Reviewed 06/12/2012 12:00 AM SYNVISC, Per 1 Mg (2ml) [facility] [address]-59 Reviewed 07/16/2012 12:00 AM Hepatobiliary ductal system imaging with functional assessment Reviewed 07/16/2012 12:00 AM Decadron 8 mg [facility]#68874645836 Reviewed 07/16/2012 12:00 AM Depo-Medrol 80mg [facility]#67341283310 Reviewed 07/16/2012 12:00 AM COMPREHEN METABOLIC PANEL Reviewed 07/16/2012 12:00 AM LIPID PANEL Reviewed 07/16/2012 12:00 AM Flu Injection 3 Years And Above [facility]# [address]-42 RHC Reviewed 08/19/2012 12:00 AM METABOLIC PANEL TOTAL CA Reviewed 12/21/2009 12:[address] ABDOMEN W/O & W/DYE Reviewed 10/02/2012 12:00 AM CHEST X-RAY 2VW FRONTAL&LATL Reviewed 10/09/2012 12:00 AM Decadron 8 mg [facility]#98043792762 Reviewed 10/09/2012 12:00 AM Depo-Medrol 80mg [facility]#57044741416 Reviewed 12/09/2012 12:00 AM CHEST X-RAY 2VW [...] Per 1 Mg (6ml) [facility] [address]-09 Reviewed 02/26/2013 12:[address] NECK SPINE W/O & W/DYE Reviewed 04/07/2013 12:00 AM INJECT TRIGGER POINTS 3/> Reviewed 04/07/2013 12:00 AM Kenalog per 10Mg [facility] [place]#[address]-26(Srinath) Reviewed 07/21/2013 12:00 AM CHEST X-RAY 2VW FRONTAL&LATL Reviewed 07/21/2013 12:00 AM Decadron 8 mg [facility]# [address]-98 Reviewed 07/21/2013 12:00 AM Depo-Medrol 80 mg [facility]#[address]-42 Reviewed 07/21/2013 12:00 AM Rocephin 500 mg [facility]#8403-3993-86 Reviewed 09/22/2013 12:00 AM CHEST X-RAY 2VW FRONTAL&LATL Returned 10/29/2013 12:00 AM X-RAY EXAM OF ABDOMEN Reviewed 12/08/2013 12:00 AM THER/PROPH/DIAG INJ SC/IM Reviewed 12/08/2013 12:00 AM Decadron, Per 1 Mg [facility]# [address]-81 Reviewed 12/08/2013 12:00 AM Depo-Medrol, Per 80 Mg [facility]#4237-1808-61 Reviewed 12/08/2013 12:00 AM CHEST X-RAY 2VW [...] AM Decadron 8 mg [facility]# [address]-82 Reviewed 01/05/2014 12:00 AM Depo-Medrol 80 mg [facility]#[address]-55 Reviewed 01/05/2014 12:00 AM Rocephin 1 gram [facility]#4905-4964-47 Reviewed 03/15/2010 12:00 AM PROTHROMBIN TIME Reviewed [...] 09/28/2010 12:00 AM Kenalog per 10Mg [facility] [place]#[address]-66(Srinath) Reviewed 05/05/2014 12:00 AM DRAIN/INJ JOINT/BURSA W/O US Reviewed 05/05/2014 12:00 AM SYNVISC-ONE, Per 1 Mg (6ml) [facility] [address]-02 Reviewed 05/06/2014 12:00 AM COMPREHEN METABOLIC PANEL [...] 12:00 AM Rocephin 500 mg [facility]#[address]-14 Reviewed 07/14/2014 12:00 AM Fluzone MEDICARE Only Reviewed 11/29/2010 12:00 AM INJECT TRIGGER POINTS 3/> Reviewed 11/29/2010 12:00 AM Kenalog per 10Mg [facility] [place]#[address]-81(Srinath) Reviewed 07/14/2014 12:00 AM Decadron injection Reviewed [...] Start Date Medicare Part A Medicare RHC [id number] N/A [employer] - [place] State Plan [employer] - [place] State Plan [id number] Wednesday, 2015 Medicare Part A Medicare - Lab/Xray [id number] N/A [employer] Medicare [employer] Ins [id number] N/A [place] Medical Assistance [facility] Medical Assistance Prog [id number] N/A Medicare Part B Medicare Of [place] [id number] Friday, February 22, 2008 Medicare Part A Medicare Part A [id number] N/A [facility] - RHC - [facility] Plan [facility] RHC Comm [id number] Wednesday, September 23, 2015 History of Encounters Visit Date Visit Type Provider 04/11/2016 Office visit Melecio Jaja DO 02/17/2016 [...] MD 12/02/2014 [facility] Platt MD 12/02/2014 [facility] Magi Powers MD 11/29/2014 [facility] Magi [...] Wilkinson DO 09/22/2013 Office visit Janis Navarrete TURBO ELECTRIC OPERATOR 07/28/2013 Office visit Katty [place] CRAIG 07/21/2013 Office visit Melecio Wilkinson DO 07/08/2013 Office visit Katty Minerva CRAIG 05/06/2013 Office visit Melecio Wilkinson DO 04/07/2013 Office visit Gorge Yo MD 02/26/2013 Office visit Melecio Wilkinson DO 01/29/2013 Office visit Gorge Yo MD 01/06/2013 Office visit Gorge Yo MD 12/09/2012 [facility] Ama Barrios MD 12/09/2012 Office visit Stephanie Richardson TURBO ELECTRIC OPERATOR 11/26/2012 Office visit Gorge Yo MD 10/30/2012 [...] Office visit Gorge Yo MD 05/12/2012 [facility] DO 05/11/2012 [facility] DO 03/13/2012 Office visit Gorge Yo [...]
--- OUTSIDE RECORDS SUMMARY | 2018-01-22 16:22 | XMS REPORT ---
Author Author Melecio Wilkinson [facility] Address [address] [place] [phone] Care Team Providers Care 3D Animator Name Role Phone Melecio Wilkinson PCP Unavailable [...] MOUTH TWO TIMES A DAY *GEN COREG* methocarbamol oral tablet 500 mg 08/30/2014 take 1 tablet (500 mg) by oral route 4 times a day for 30 days digoxin oral tablet 125 mcg 08/30/2014 TAKE [...] BY MOUTH THREE TIMES DAILY NEEDED oxycodone oral tablet 15 mg 01/12/2015 01/22/2015 take 1 tablet by oral route every 4 to 6 hours as needed for 10 days pain omeprazole oral capsule,delayed release(DR/EC) 40 mg 01/13/2015 07/12/2015 take 1 capsule by oral route 2 times a day for 30 days Cipro oral tablet 500 [...] for 30 days Discontinued by Hospitalist at [place] Augmentin Oral Tablet 875-125 mg 11/07/2010 03/05/2011 [...] HC BMI BSA BMI Percentile O2 Sat(%) 01/13/2015 1:38:00 PM 142 mmHg 82 mmHg [...] II Feb 2013 9:08AM Gastroenteritis, Noninfectious Feb 2013 9:08AM [...] 9:23AM Cervical radiculopathy Jan 12 2015 9:23AM Payers Insurance Name Company Name Plan Name Plan Number Policy Number Policy Group Number Start Date Medicare Part A Medicare Part A [id number] N/A [place] [facility] Medicare [facility] Ins [id number] N/A [place] Medical [place] Prog [id number] N/A Medicare Part B Medicare [place] [id number] Friday, 2008 History of Encounters Visit Date Visit Type Provider 01/13/2015 Office visit Melecio Wilkinson DO 01/12/2015 Office visit Katty CRAIG 12/16/2014 [facility] Alfa Platt MD 12/14/2014 Voided Melecio Wilkinson DO 12/08/2014 Office visit Melecio Wilkinson DO 12/08/2014 Office visit Alfa Platt MD 12/07/2014 Nurse visit Riri Salazar MD 12/02/2014 [facility] Platt MD 11/29/2014 Voided Katty CRAIG 11/29/2014 [facility] Magi Powers MD 11/11/2014 Office [...] 12/09/2012 Office visit Stephanie Richardson APRN 12/09/2012 [facility] Ama Barrios MD 11/26/2012 Office [...] 03/05/2011 Office visit Melecio Wilkinson DO 02/06/2011 [facility] Gorge Yo MD 01/08/2011 Office [...]
--- OUTSIDE RECORDS SUMMARY | 2018-01-22 16:27 | XMS REPORT ---
Author Author Melecio Wilkinson [facility] Address [address] [place] [phone] Care Team Providers Care Operating Table Assembler Name Role Phone Melecio Wilkinson PCP [...] per day with food for 90 days Lyrica 50 mg oral capsule take [...] 12 hours Singulair 10 mg oral tablet 05/03/2016 take [...] by intranasal route 2 times per day fluticasone 50 mcg/actuation nasal spray,suspension 05/03/2016 inhale 1 spray (50 mcg) in each nostril by intranasal route 2 times per day Name Start [...] for 30 days Discontinued by Hospitalist at [place] Augmentin 875-125 mg oral tablet 11/07/2010 03/05/2011 [...] route every 12 hours for 30 days [place] stoned Problem List Description Status Onset SI [...] Per 10 Mg [facility]#8776-3395-94 Reviewed 06/19/2011 12:00 AM DRAIN/INJ JOINT/BURSA W/O US Reviewed 06/19/2011 12:00 AM Kenalog 40 Mg Im-[facility]#0701-56[address]-82 Reviewed 08/25/2015 12:00 AM OFFICE/OUTPATIENT VISIT EST Reviewed 08/23/2015 12:00 AM Decadron, Per 1 Mg [facility]# [address]-41 Reviewed 08/23/2015 12:00 AM Depo-Medrol, Per 80 Mg [facility]#[address]-48 Reviewed 09/07/2015 12:00 AM X-RAY EXAM L-S [...] Rocephin 1 gm [facility]#[address]-62 Reviewed 01/16/2012 12:00 AM DRAIN/INJ JOINT/BURSA W/O US Reviewed 01/16/2012 12:00 AM Kenalog per 10Mg Im-[facility]#[address]-94(Srinath) Reviewed 02/05/2012 12:[address] ABDOMEN W/O & W/DYE Reviewed 02/05/2012 12:[address] PELVIS W/O & W/DYE Reviewed 05/29/2012 12:00 AM DRAIN/INJ JOINT/BURSA W/O US Reviewed 05/29/2012 12:00 AM SYNVISC, Per 1 Mg (2ml) [facility] [address]-81 Reviewed 06/05/2012 12:00 AM DRAIN/INJ JOINT/BURSA W/O US Reviewed 06/05/2012 12:00 AM SYNVISC, Per 1 Mg (2ml) [facility] [address]-58 Reviewed 06/12/2012 12:00 AM DRAIN/INJ JOINT/BURSA W/O US Reviewed 06/12/2012 12:00 AM SYNVISC, Per 1 Mg (2ml) [facility] [address]-70 Reviewed 07/16/2012 12:00 AM Hepatobiliary ductal system imaging with functional assessment Reviewed 07/16/2012 12:00 AM Decadron 8 mg [facility]#85314091670 Reviewed 07/16/2012 12:00 AM Depo-Medrol 80mg [facility]#84151922022 Reviewed 07/16/2012 12:00 AM COMPREHEN METABOLIC PANEL Reviewed 07/16/2012 12:00 AM LIPID PANEL Reviewed 07/16/2012 12:00 AM Flu Injection 3 Years And Above [facility]# [address]-10 RHC Reviewed 08/19/2012 12:00 AM METABOLIC PANEL TOTAL CA Reviewed 12/21/2009 12:[address] ABDOMEN W/O & W/DYE Reviewed 10/02/2012 12:00 AM CHEST X-RAY 2VW FRONTAL&LATL Reviewed 10/09/2012 12:00 AM Decadron 8 mg [facility]#18211327830 Reviewed 10/09/2012 12:00 AM Depo-Medrol 80mg [facility]#12580818429 Reviewed 12/09/2012 12:00 AM CHEST X-RAY 2VW [...] 1 Mg (6ml) [facility] [address]-16 Reviewed 02/26/2013 12:[address] NECK SPINE W/O & W/DYE Reviewed 04/07/2013 12:00 AM INJECT TRIGGER POINTS 3/> Reviewed 04/07/2013 12:00 AM Kenalog per 10Mg Im-[facility]#[address]-69(Srinath) Reviewed 07/21/2013 12:00 AM CHEST X-RAY 2VW FRONTAL&LATL Reviewed 07/21/2013 12:00 AM Decadron 8 mg [facility]# [address]-54 Reviewed 07/21/2013 12:00 AM Depo-Medrol 80 mg [facility]#[address]-60 Reviewed 07/21/2013 12:00 AM Rocephin 500 mg [facility]#7465-4628-76 Reviewed 09/22/2013 12:00 AM CHEST X-RAY 2VW FRONTAL&LATL Returned 10/29/2013 12:00 AM X-RAY EXAM OF ABDOMEN Reviewed 12/08/2013 12:00 AM THER/PROPH/DIAG INJ SC/IM Reviewed 12/08/2013 12:00 AM Decadron, Per 1 Mg [facility]# [address]-07 Reviewed 12/08/2013 12:00 AM Depo-Medrol, Per 80 Mg [facility]#2775-9241-13 Reviewed 12/08/2013 12:00 AM CHEST X-RAY 2VW [...] Decadron 8 mg [facility]# [address]-95 Reviewed 01/05/2014 12:00 AM Depo-Medrol 80 mg [facility]#[address]-78 Reviewed 01/05/2014 12:00 AM Rocephin 1 gram [facility]#7440-4997-27 Reviewed 03/15/2010 12:00 AM PROTHROMBIN TIME Reviewed [...] Kenalog per 10Mg Im-[facility]#[address]-08(Srinath) Reviewed 05/05/2014 12:00 AM DRAIN/INJ JOINT/BURSA W/O US Reviewed 05/05/2014 12:00 AM SYNVISC-ONE, Per 1 Mg (6ml) [facility] [address]-39 Reviewed 05/06/2014 12:00 AM COMPREHEN METABOLIC PANEL [...] Rocephin 500 mg [facility]#[address]-41 Reviewed 07/14/2014 12:00 AM Fluzone MEDICARE Only Reviewed 11/29/2010 12:00 AM INJECT TRIGGER POINTS 3/> Reviewed 11/29/2010 12:00 AM Kenalog per 10Mg Im-[facility]#[address]-26(Srinath) Reviewed 07/14/2014 12:00 AM Decadron injection Reviewed [...] left shoulder pain May 03 2016 2:39PM Payers Insurance Name Company Name Plan Name Plan Number Policy Number Policy Group Number Start Date Medicare Part A Medicare RHC [id number] N/A [employer] - R[place] State Plan [employer] - [place] State Plan [id number] Wednesday, 2015 Medicare Part A Medicare - Lab/Xray [id number] N/A [employer] Medicare [employer] Ins [id number] N/A [place] Medical Assistance [facility] Medical Assistance Prog [id number] N/A Medicare Part B Medicare [place] [id number] Friday, February 22, 2008 Medicare Part A Medicare Part A [id number] N/A [facility] - RHC - [facility] Plan [facility] RHC Comm [id number] Wednesday, September 23, 2015 History of Encounters [...] DO 01/12/2015 Office visit Katty CRAIG 12/16/2014 [facility] Alfa Platt MD 12/14/2014 Voided Melecio Jaja DO 12/08/2014 Office visit Alfa Platt MD 12/08/2014 Office visit Melecio Jaja DO 12/07/2014 Nurse visit Riri Salazar MD 12/02/2014 [facility] Alfa Platt MD 12/02/2014 [facility] Magi Powers MD 11/29/2014 [facility] Magi Powers MD 11/29/2014 Voided Katty CRAIG 11/11/2014 Office visit 11/11/2014 Office visit Katty CRAIG 11/11/2014 Office visit Melecio Jaja DO 10/14/2014 Office visit Katty CRAIG 09/14/2014 Office visit Katty CRAIG 09/08/2014 Hospital Ama Barrios MD 09/07/2014 Office visit Melecio Cruzte DO 08/16/2014 Nurse visit Katty Jefferson VIOLENT CRIMES DETECTIVE 07/19/2014 Office visit Katty Jefferson VIOLENT CRIMES DETECTIVE 07/14/2014 Office visit Melecio Cruzte DO 06/21/2014 Office visit Katty Jefferson VIOLENT CRIMES DETECTIVE 05/20/2014 Office visit Melecio Cruzte DO 05/14/2014 Office visit Melecio Cruzte DO 05/05/2014 Office visit Katty DURÁNP 04/26/2014 Office visit Katty Jefferson VIOLENT CRIMES DETECTIVE 03/24/2014 Office visit Katty Jefferson VIOLENT CRIMES DETECTIVE 02/24/2014 Office visit Katty Jefferson VIOLENT CRIMES DETECTIVE 01/05/2014 Office visit Melecio Jaja DO 12/23/2013 Office visit Katty Jefferson VIOLENT CRIMES DETECTIVE 12/23/2013 Office visit Melecio Jaja DO 12/18/2013 Office visit Janis Landon BENCH ASSEMBLER ELECTRICAL 12/08/2013 Office visit Janis Landon BENCH ASSEMBLER ELECTRICAL 11/25/2013 Office visit Katty DURÁNP 10/29/2013 Office visit Melecio Jaja DO 09/22/2013 Office visit Janis Navarrete BENCH ASSEMBLER ELECTRICAL 07/28/2013 Office visit Katty DURÁNP 07/21/2013 Office visit Melecio Jaja DO 07/08/2013 Office visit Katty CRAIG 05/06/2013 Office visit Melecio Wilkinson DO 04/07/2013 Office visit Gorge Yo MD 02/26/2013 Office visit Melecio Wilkinson DO 01/29/2013 Office visit Gorge Yo MD 01/06/2013 Office visit Gorge Yo MD 12/09/2012 [facility] Ama Barrios MD 12/09/2012 Office visit Stephanie Richardson BENCH ASSEMBLER ELECTRICAL 11/26/2012 Office visit Gorge Yo MD 10/30/2012 [facility] Gorge Yo MD 10/29/2012 Office [...] visit Melecio Wilkinson DO 05/14/2012 Office visit Groge Yo MD 05/12/2012 [facility] DO 05/11/2012 [facility] DO 03/13/2012 Office visit Gorge Yo [...] 03/05/2011 Office visit Melecio Wilkinson DO 02/06/2011 [facility] Gorge Yo MD 01/08/2011 Office visit Melecio Wilkinson DO 12/27/2010 Office visit Gorge Yo MD 11/29/2010 Office visit Gorge Yo MD 11/07/2010 Office visit Melecio Wilkinson DO 09/28/2010 Office visit Gorge Yo MD 09/05/2010 [facility] Gorge Yo MD 08/28/2010 Office [...] MD 03/31/2010 Laboratory Alfonso Camacho MD 03/31/2010 [facility] Alfonso Camacho MD 03/21/2010 Procedures [...]
--- OUTSIDE RECORDS SUMMARY | 2018-01-22 16:33 | XMS REPORT ---
Author Author Melecio Wilkinson [facility] Address [address] [place] [phone] Care Team Providers Care Hospice Aide Name Role Phone Melecio Wilkinson PCP Unavailable [...] for 30 days Discontinued by Hospitalist at [place] niacin 500 mg oral tablet 10/10/2016 take [...] route every 12 hours for 30 days [place] guerita Amitiza 24 mcg oral capsule 05/03/2016 [...] 12:00 AM Kenalog, Per 10 Mg [facility]#7790-9842-90 Reviewed 12/07/2014 12:00 AM OFFICE/OUTPATIENT VISIT EST Reviewed 06/19/2011 12:00 AM DRAIN/INJ JOINT/BURSA W/O US Reviewed 06/19/2011 12:00 AM Kenalog 40 Mg [facility]#2590-7601-79 Reviewed 08/25/2015 12:00 AM OFFICE/OUTPATIENT VISIT EST Reviewed 08/23/2015 12:00 AM Decadron, Per 1 Mg [facility]# [address]-11 Reviewed 08/23/2015 12:00 AM Depo-Medrol, Per 80 Mg [facility]#[address]-26 Reviewed 09/07/2015 12:00 AM X-RAY EXAM L-S [...] 12:00 AM Decadron, Per 1 Mg [facility]# [address]-02 Reviewed 10/23/2015 12:00 AM Depo-Medrol, Per 80 Mg [facility]#[address]-12 Reviewed 07/26/2011 12:00 AM X-RAY EXAM OF ABDOMEN Reviewed 11/21/2015 12:00 AM Orthopedics Consultation Reviewed 11/21/2015 12:00 AM Physical Therapy Consultation Reviewed 12/20/2015 12:00 AM EXTREMITY STUDY Reviewed 10/12/2011 12:00 AM EXTREMITY STUDY Reviewed 05/10/2016 12:00 AM CONTRAST X-RAY OF SHOULDER Reviewed 07/09/2016 12:00 AM PNEUMOCOCCAL VACC 13 RIP IM Reviewed 08/08/2016 12:00 AM Decadron, Per 1 Mg [facility]# [address]-90 Reviewed 08/08/2016 12:00 AM Depo-Medrol, Per 80 Mg [facility]#[address]-46 Reviewed 01/01/2012 12:00 AM AIRWAY INHALATION TREATMENT Reviewed 01/01/2012 12:00 AM Rocephin 1 gm [facility]#[address]-80 Reviewed 01/16/2012 12:00 AM DRAIN/INJ JOINT/BURSA W/O US Reviewed 01/16/2012 12:00 AM Kenalog per 10Mg [facility]#[address]-66(Srinath) Reviewed 09/26/2016 12:00 AM CHEST X-RAY 2VW [...] AM SYNVISC, Per 1 Mg (2ml) [facility] [address]-91 Reviewed 06/05/2012 12:00 AM DRAIN/INJ JOINT/BURSA W/O US Reviewed 06/05/2012 12:00 AM SYNVISC, Per 1 Mg (2ml) [facility] [address]-90 Reviewed 06/12/2012 12:00 AM DRAIN/INJ JOINT/BURSA W/O US Reviewed 06/12/2012 12:00 AM SYNVISC, Per 1 Mg (2ml) [facility] [address]-85 Reviewed 07/16/2012 12:00 AM Hepatobiliary ductal system imaging with functional assessment Reviewed 07/16/2012 12:00 AM Decadron 8 mg [facility]#[id number] Reviewed 07/16/2012 12:00 AM Depo-Medrol 80mg [facility]#49502338042 Reviewed 07/16/2012 12:00 AM COMPREHEN METABOLIC PANEL Reviewed 07/16/2012 12:00 AM LIPID PANEL Reviewed 07/16/2012 12:00 AM Flu Injection 3 Years And Above [facility]# [address]-20 RHC Reviewed 08/19/2012 12:00 AM METABOLIC PANEL TOTAL CA Reviewed 12/21/2009 12:[address] ABDOMEN W/O & W/DYE Reviewed 10/02/2012 12:00 AM CHEST X-RAY 2VW FRONTAL&LATL Reviewed 10/09/2012 12:00 AM Decadron 8 mg [facility]#53128679305 Reviewed 10/09/2012 12:00 AM Depo-Medrol 80mg [facility]#29624762892 Reviewed 12/09/2012 12:00 AM CHEST X-RAY 2VW [...] AM SYNVISC-ONE, Per 1 Mg (6ml) [facility] [address]-53 Reviewed 02/26/2013 12:00 AM Physical Therapy Reviewed 02/26/2013 12:[address] NECK SPINE W/O & W/DYE Reviewed 04/07/2013 12:00 AM INJECT TRIGGER POINTS 3/> Reviewed 04/07/2013 12:00 AM Kenalog per 10Mg [facility]#[address]-82(Srinath) Reviewed 07/21/2013 12:00 AM CHEST X-RAY 2VW FRONTAL&LATL Reviewed 07/21/2013 12:00 AM Decadron 8 mg [facility]# [address]-67 Reviewed 07/21/2013 12:00 AM Depo-Medrol 80 mg [facility]#[address]-85 Reviewed 07/21/2013 12:00 AM Rocephin 500 mg [facility]#9391-1311-51 Reviewed 09/22/2013 12:00 AM CHEST X-RAY 2VW FRONTAL&LATL Reviewed 10/29/2013 12:00 AM X-RAY EXAM OF ABDOMEN Reviewed 12/08/2013 12:00 AM THER/PROPH/DIAG INJ SC/IM Reviewed 12/08/2013 12:00 AM Decadron, Per 1 Mg [facility]# [address]-48 Reviewed 12/08/2013 12:00 AM Depo-Medrol, Per 80 Mg [facility]#1968-9531-58 Reviewed 12/08/2013 12:00 AM CHEST X-RAY 2VW [...] 01/05/2014 12:00 AM Decadron 8 mg [facility]# [address]-23 Reviewed 01/05/2014 12:00 AM Depo-Medrol 80 mg [facility]#[address]-48 Reviewed 01/05/2014 12:00 AM Rocephin 1 gram [facility]#5029-6423-19 Reviewed 03/15/2010 12:00 AM PROTHROMBIN TIME Reviewed [...] Kenalog per 10Mg [facility]#[address]-90(Srinath) Reviewed 05/05/2014 12:00 AM DRAIN/INJ JOINT/BURSA W/O US Reviewed 05/05/2014 12:00 AM SYNVISC-ONE, Per 1 Mg (6ml) [facility] [address]-11 Reviewed 05/06/2014 12:00 AM COMPREHEN METABOLIC PANEL [...] 11/07/2010 12:00 AM Rocephin 500 mg [facility]#[address]-18 Reviewed 07/14/2014 12:00 AM Fluzone MEDICARE Only Reviewed 11/29/2010 12:00 AM INJECT TRIGGER POINTS 3/> Reviewed 11/29/2010 12:00 AM Kenalog per 10Mg [facility]#[address]-43(Srinath) Reviewed 07/14/2014 12:00 AM Decadron injection Reviewed [...] CVX Pneumococcal 07/09/2016 [facility]arbel [facility] Prevnar 13 [id number] Intramuscular Right Deltoid 07/09/2016 07/28/2015 133 History [...] Number Start Date Medicare RHC Medicare RHC [id number] N/A [employer] [place] [id number] N/A [place] [facility] Medicare [place] Life Ins [id number] N/A [place] Medical Assistance [facility] Medical Assistance Prog [id number] N/A Medicare Part B Medicare [place] [id number] Friday, 2008 Medicare Part A Medicare Part A [id number] N/A [facility] - RHC - [facility] Plan [facility] RHC Comm [id number] Wednesday, 2015 [employer] - RHC - [place] State Plan [employer] - RHC [place] State Plan [id number] Wednesday, 2015 Medicare Part A Medicare - Lab/Xray [id number] N/A History of Encounters Visit Date Visit Type Provider 01/09/2017 Office visit Melecio Wilkinson DO 01/01/2017 [facility] Seth Devlin DO 12/21/2016 Office visit [...] visit Katty CRAIG 01/19/2015 Office visit Katty RCAIG 01/13/2015 Office visit Melecio Jaja DO 01/12/2015 Office visit Katty CRAIG 12/16/2014 [facility] Alfa Platt MD 12/14/2014 Voided Melecio Jaja DO 12/08/2014 Office visit Alfa Platt MD 12/08/2014 Office visit Melecio Jaja DO 12/07/2014 Nurse visit Riri Salazar MD 12/02/2014 [facility] Alfa Platt MD [facility]2014 [facility] Gio STRONG 11/29/2014 Voided Katty CRAIG [...] [place] DO 12/18/2013 Office visit Janis Navarrete AUTISM MOTOR SPECIALIST 12/08/2013 Office visit Janis Navarrete AUTISM MOTOR SPECIALIST 11/25/2013 Office visit Katty CRAIG 10/29/2013 Office visit Melecio Wilkinson DO 09/22/2013 Office visit Janis Navarrete AUTISM MOTOR SPECIALIST 07/28/2013 Office visit Katty DURÁNP 07/21/2013 Office visit Melecio Wilkinson DO 07/08/2013 Office visit Katty CRAIG 05/06/2013 Office visit Melecio Wilkinson DO 04/07/2013 Office visit Gorge Yo MD 02/26/2013 Office visit Melecio Wilkinson DO 01/29/2013 Office visit Gorge Yo MD 01/06/2013 Office visit Gorge Yo MD 12/09/2012 [facility] Ama Barrios MD 12/09/2012 Office visit Stephanie Richardson AUTISM MOTOR SPECIALIST 11/26/2012 Office visit Gorge Yo MD 10/30/2012 [...] 05/14/2012 Office visit Gorge Yo MD 05/12/2012 [facility] DO 05/11/2012 [facility] DO 03/13/2012 Office visit Gorge Yo MD 02/05/2012 Office visit Melecio Wilkinson DO 01/31/2012 Office visit Gorge Yo MD 01/16/2012 Office visit Gorge Yo MD 01/01/2012 Office visit Melecio Wilkinson DO 11/16/2011 Office visit Gorge Yo MD 10/05/2011 Office visit Gorge Yo MD 10/01/2011 Office visit Janis Navarrete AUTISM MOTOR SPECIALIST 09/06/2011 Office visit Gorge Yo MD 07/26/2011 [...]
--- OUTSIDE RECORDS SUMMARY | 2018-01-22 16:39 | XMS REPORT ---
Author Author Melecio Wilkinson [facility] Address [address] [place], [place] [phone] Care Team Providers Care Senior Accountant Cpa Name Role Phone Melecio Wilkinson PCP Unavailable [...] for 30 days Discontinued by Hospitalist at [place] niacin 500 mg oral tablet 10/10/2016 take [...] Per 10 Mg [facility]#9448-5854-35 Reviewed 12/07/2014 12:00 AM OFFICE/OUTPATIENT VISIT EST Reviewed 06/19/2011 12:00 AM DRAIN/INJ JOINT/BURSA W/O US Reviewed 06/19/2011 12:00 AM Kenalog 40 Mg [facility]#5830-3975-25 Reviewed 08/25/2015 12:00 AM OFFICE/OUTPATIENT VISIT EST Reviewed 08/23/2015 12:00 AM Decadron, Per 1 Mg [facility]# [address]-62 Reviewed 08/23/2015 12:00 AM Depo-Medrol, Per 80 Mg [facility]#[address]-75 Reviewed 09/07/2015 12:00 AM X-RAY EXAM L-S [...] Per 1 Mg [facility]# [address]-50 Reviewed 10/23/2015 12:00 AM Depo-Medrol, Per 80 Mg [facility]#[address]-94 Reviewed 07/26/2011 12:00 AM X-RAY EXAM OF ABDOMEN Reviewed 11/21/2015 12:00 AM Orthopedics Consultation Reviewed 11/21/2015 12:00 AM Physical Therapy Consultation Reviewed 12/20/2015 12:00 AM EXTREMITY STUDY Reviewed 10/12/2011 12:00 AM EXTREMITY STUDY Reviewed 05/10/2016 12:00 AM CONTRAST X-RAY OF SHOULDER Reviewed 07/09/2016 12:00 AM PNEUMOCOCCAL VACC 13 RIP IM Reviewed 08/08/2016 12:00 AM Decadron, Per 1 Mg [facility]# [address]-80 Reviewed 08/08/2016 12:00 AM Depo-Medrol, Per 80 Mg [facility]#[address]-37 Reviewed 01/01/2012 12:00 AM AIRWAY INHALATION TREATMENT Reviewed 01/01/2012 12:00 AM Rocephin 1 gm [facility]#[address]-76 Reviewed 01/16/2012 12:00 AM DRAIN/INJ JOINT/BURSA W/O US Reviewed 01/16/2012 12:00 AM Kenalog per 10Mg [facility]#[address]-65(Srinath) Reviewed 09/26/2016 12:00 AM CHEST X-RAY 2VW [...] 1 Mg (2ml) [facility] [address]-45 Reviewed 06/05/2012 12:00 AM DRAIN/INJ JOINT/BURSA W/O US Reviewed 06/05/2012 12:00 AM SYNVISC, Per 1 Mg (2ml) [facility] [address]-46 Reviewed 06/12/2012 12:00 AM DRAIN/INJ JOINT/BURSA W/O US Reviewed 06/12/2012 12:00 AM SYNVISC, Per 1 Mg (2ml) [facility] [address]-24 Reviewed 07/16/2012 12:00 AM Hepatobiliary ductal system imaging with functional assessment Reviewed 07/16/2012 12:00 AM Decadron 8 mg [facility]#[id number] Reviewed 07/16/2012 12:00 AM Depo-Medrol 80mg [facility]#61896350138 Reviewed 07/16/2012 12:00 AM COMPREHEN METABOLIC PANEL Reviewed 07/16/2012 12:00 AM LIPID PANEL Reviewed 07/16/2012 12:00 AM Flu Injection 3 Years And Above [facility]# [address]-60 RHC Reviewed 08/19/2012 12:00 AM METABOLIC PANEL TOTAL CA Reviewed 12/21/2009 12:[address] ABDOMEN W/O & W/DYE Reviewed 10/02/2012 12:00 AM CHEST X-RAY 2VW FRONTAL&LATL Reviewed 10/09/2012 12:00 AM Decadron 8 mg [facility]#[id number] Reviewed 10/09/2012 12:00 AM Depo-Medrol 80mg [facility]#27289446899 Reviewed 12/09/2012 12:00 AM CHEST X-RAY 2VW [...] 1 Mg (6ml) [facility] [address]-07 Reviewed 02/26/2013 12:00 AM Physical Therapy Reviewed 02/26/2013 12:[address] NECK SPINE W/O & W/DYE Reviewed 04/07/2013 12:00 AM INJECT TRIGGER POINTS 3/> Reviewed 04/07/2013 12:00 AM Kenalog per 10Mg [facility]#[address]-02(Srinath) Reviewed 07/21/2013 12:00 AM CHEST X-RAY 2VW FRONTAL&LATL Reviewed 07/21/2013 12:00 AM Decadron 8 mg [facility]# [address]-52 Reviewed 07/21/2013 12:00 AM Depo-Medrol 80 mg [facility]#[address]-36 Reviewed 07/21/2013 12:00 AM Rocephin 500 mg [facility]#2313-7850-81 Reviewed 09/22/2013 12:00 AM CHEST X-RAY 2VW FRONTAL&LATL Reviewed 10/29/2013 12:00 AM X-RAY EXAM OF ABDOMEN Reviewed 12/08/2013 12:00 AM THER/PROPH/DIAG INJ SC/IM Reviewed 12/08/2013 12:00 AM Decadron, Per 1 Mg [facility]# [address]-74 Reviewed 12/08/2013 12:00 AM Depo-Medrol, Per 80 Mg [facility]#3580-9244-40 Reviewed 12/08/2013 12:00 AM CHEST X-RAY 2VW [...] Decadron 8 mg [facility]# [address]-62 Reviewed 01/05/2014 12:00 AM Depo-Medrol 80 mg [facility]#[address]-22 Reviewed 01/05/2014 12:00 AM Rocephin 1 gram [facility]#9279-7310-99 Reviewed 03/15/2010 12:00 AM PROTHROMBIN TIME Reviewed [...] per 10Mg [facility]#[address]-70(Srinath) Reviewed 05/05/2014 12:00 AM DRAIN/INJ JOINT/BURSA W/O US Reviewed 05/05/2014 12:00 AM SYNVISC-ONE, Per 1 Mg (6ml) [facility] [address]-75 Reviewed 05/06/2014 12:00 AM COMPREHEN METABOLIC PANEL [...] Rocephin 500 mg [facility]#[address]-88 Reviewed 07/14/2014 12:00 AM Fluzone MEDICARE Only Reviewed 11/29/2010 12:00 AM INJECT TRIGGER POINTS 3/> Reviewed 11/29/2010 12:00 AM Kenalog per 10Mg [facility]#[address]-95(Srinath) Reviewed 07/14/2014 12:00 AM Decadron injection Reviewed [...] CVX Pneumococcal 07/09/2016 [facility] Prevnar 13 [id number] Intramuscular Right Deltoid 07/09/2016 07/28/2015 133 History [...] Number Start Date Medicare RHC Medicare RHC [id number] N/A [employer] [place] State Plan [facility] [id number] N/A [place] Medicare [place] Life Ins [id number] N/A [place] Medical Assistance [facility] Medical Assistance Prog [id number] N/A Medicare Part B Medicare [place] [id number] Friday, 2008 Medicare Part A Medicare Part A [id number] N/A [facility] - RHC - [facility] Plan [facility] RHC Comm [id number] Wednesday, 2015 [employer] - R[place] - [place] [facility] [employer] - RHC [facility] Plan [id number] Wednesday, 2015 Medicare Part A Medicare - Lab/Xray [id number] N/A History of Encounters Visit Date Visit Type Provider 02/22/2017 Office visit Melecio Wilkinson DO 02/05/2017 Office visit Melecio Wilkinson DO 2017 [facility] Rasta Mckeon MD 01/09/2017 Office visit Melecio Wilkinson DO 01/01/2017 [facility] Seth Devlin DO 12/31/2016 [facility] Rasta Mckeon MD 12/21/2016 Office visit Melecio [...] 12/07/2014 Nurse visit Riri Salazar MD 12/02/2014 [facility] Alfa Platt MD 12/02/2014 [facility] [...] Navarrete APRN 12/08/2013 Office visit Janis Navarrete HEAVY EQUIPMENT OPERATOR APPRENTICE 11/25/2013 Office visit Katty Jefferson BAIL BOND AGENT 10/29/2013 Office visit Melecio Wilkinson DO 09/22/2013 Office visit Janis Navarrete HEAVY EQUIPMENT OPERATOR APPRENTICE 07/28/2013 Office visit Katty [place] Ronny BAIL BOND AGENT 07/21/2013 Office visit Melecio Wilkinson DO 07/08/2013 Office visit aKtty CRAIG 05/06/2013 Office visit Melecio Wilkinson DO 04/07/2013 Office visit Gorge Yo MD 02/26/2013 Office visit Melecio Wilkinson DO 01/29/2013 Office visit Gorge Yo MD 01/06/2013 Office visit Gorge Yo MD 12/09/2012 [facility] Ama Barrios MD 12/09/2012 Office visit Stephanie Richardson HEAVY EQUIPMENT OPERATOR APPRENTICE 11/26/2012 Office visit Gorge Yo MD 10/30/2012 [...] 05/14/2012 Office visit Gorge Yo MD 05/12/2012 [facility] DO 05/11/2012 [facility] DO 03/13/2012 Office visit Gorge Yo [...] 03/05/2011 Office visit Melecio Wilkinson DO 02/06/2011 [facility] Gorge Yo MD 01/08/2011 Office visit Melecio Wilkinson DO 12/27/2010 Office visit Gorge Yo MD 11/29/2010 Office visit Gorge Yo MD 11/07/2010 Office visit Melecio Wilkinson DO 09/28/2010 Office visit Gorge Yo MD 09/05/2010 [facility] oGrge Yo MD 08/28/2010 Office visit Gorge Yo [...]
--- OUTSIDE RECORDS SUMMARY | 2018-01-22 16:44 | XMS REPORT ---
Author Author Melecio Wilkinson [facility] Address [address] [place], [place] [id number] Care Team Providers Care Retort Loader Name Role Phone Melecio Wilkinson PCP [...] oral route every 12 hours as needed oxycodone 20 mg oral tablet 05/28/2017 06/27/2017 [...] per day after meals for 2 days oxycodone 20 mg oral tablet,oral only,ext.rel.12 hr 04/26/2017 05/26/2017 take 1 tablet (20 mg) by oral route every 8 hours for 30 days Discontinued Name Start [...] for 30 days Discontinued by Hospitalist at [place] niacin 500 mg oral tablet 10/10/2016 take [...] Kenalog, Per 10 Mg [facility]#3999-2480-05 Reviewed 12/07/2014 12:00 AM OFFICE/OUTPATIENT VISIT EST Reviewed 06/19/2011 12:00 AM DRAIN/INJ JOINT/BURSA W/O US Reviewed 06/19/2011 12:00 AM Kenalog 40 Mg [facility]#9445-6795-01 Reviewed 08/25/2015 12:00 AM OFFICE/OUTPATIENT VISIT EST Reviewed 08/23/2015 12:00 AM Decadron, Per 1 Mg [facility]# [address]-17 Reviewed 08/23/2015 12:00 AM Depo-Medrol, Per 80 Mg [facility]#[address]-44 Reviewed 09/07/2015 12:00 AM X-RAY EXAM L-S [...] 10/23/2015 12:00 AM Decadron, Per 1 Mg [facility]# [address]-37 Reviewed 10/23/2015 12:00 AM Depo-Medrol, Per 80 Mg [facility]#[address]-77 Reviewed 07/26/2011 12:00 AM X-RAY EXAM OF ABDOMEN Reviewed 11/21/2015 12:00 AM Orthopedics Consultation Reviewed 11/21/2015 12:00 AM Physical Therapy Consultation Reviewed 12/20/2015 12:00 AM EXTREMITY STUDY Reviewed 10/12/2011 12:00 AM EXTREMITY STUDY Reviewed 05/10/2016 12:00 AM CONTRAST X-RAY OF SHOULDER Reviewed 07/09/2016 12:00 AM PNEUMOCOCCAL VACC 13 RIP IM Reviewed 08/08/2016 12:00 AM Decadron, Per 1 Mg [facility]# [address]-99 Reviewed 08/08/2016 12:00 AM Depo-Medrol, Per 80 Mg [facility]#[address]-39 Reviewed 01/01/2012 12:00 AM AIRWAY INHALATION TREATMENT Reviewed 01/01/2012 12:00 AM Rocephin 1 gm [facility]#[address]-22 Reviewed 01/16/2012 12:00 AM DRAIN/INJ JOINT/BURSA W/O US Reviewed 01/16/2012 12:00 AM Kenalog per 10Mg [facility]#[address]-28(Srinath) Reviewed 09/26/2016 12:00 AM CHEST X-RAY 2VW [...] 1 Mg (2ml) [facility] [address]-58 Reviewed 06/05/2012 12:00 AM DRAIN/INJ JOINT/BURSA W/O US Reviewed 06/05/2012 12:00 AM SYNVISC, Per 1 Mg (2ml) [facility] [address]-65 Reviewed 06/12/2012 12:00 AM DRAIN/INJ JOINT/BURSA W/O US Reviewed 06/12/2012 12:00 AM SYNVISC, Per 1 Mg (2ml) [facility] [address]-70 Reviewed 07/16/2012 12:00 AM Hepatobiliary ductal system imaging with functional assessment Reviewed 07/16/2012 12:00 AM Decadron 8 mg [facility]#[id number] Reviewed 07/16/2012 12:00 AM Depo-Medrol 80mg [facility]#[id number] Reviewed 07/16/2012 12:00 AM COMPREHEN METABOLIC PANEL Reviewed 07/16/2012 12:00 AM LIPID PANEL Reviewed 07/16/2012 12:00 AM Flu Injection 3 Years And Above [facility]# [address]-97 RHC Reviewed 08/19/2012 12:00 AM METABOLIC PANEL TOTAL CA Reviewed 12/21/2009 12:[address] ABDOMEN W/O & W/DYE Reviewed 10/02/2012 12:00 AM CHEST X-RAY 2VW FRONTAL&LATL Reviewed 10/09/2012 12:00 AM Decadron 8 mg [facility]#[id number] Reviewed 10/09/2012 12:00 AM Depo-Medrol 80mg [facility]#[id number] Reviewed 12/09/2012 12:00 AM CHEST X-RAY 2VW [...] 1 Mg (6ml) [facility] [address]-24 Reviewed 02/26/2013 12:00 AM Physical Therapy Reviewed 02/26/2013 12:[address] NECK SPINE W/O & W/DYE Reviewed 04/07/2013 12:00 AM INJECT TRIGGER POINTS 3/> Reviewed 04/07/2013 12:00 AM Kenalog per 10Mg [facility]#[address]-76(Srinath) Reviewed 07/21/2013 12:00 AM CHEST X-RAY 2VW FRONTAL&LATL Reviewed 07/21/2013 12:00 AM Decadron 8 mg [facility]# [address]-84 Reviewed 07/21/2013 12:00 AM Depo-Medrol 80 mg [facility]#[address]-10 Reviewed 07/21/2013 12:00 AM Rocephin 500 mg [facility]#7073-8324-91 Reviewed 09/22/2013 12:00 AM CHEST X-RAY 2VW FRONTAL&LATL Reviewed 10/29/2013 12:00 AM X-RAY EXAM OF ABDOMEN Reviewed 12/08/2013 12:00 AM THER/PROPH/DIAG INJ SC/IM Reviewed 12/08/2013 12:00 AM Decadron, Per 1 Mg [facility]# [address]-89 Reviewed 12/08/2013 12:00 AM Depo-Medrol, Per 80 Mg [facility]#9620-224[address]-93 Reviewed 12/08/2013 12:00 AM CHEST X-RAY 2VW [...] Decadron 8 mg [facility]# [address]-87 Reviewed 01/05/2014 12:00 AM Depo-Medrol 80 mg [facility]#[address]-56 Reviewed 01/05/2014 12:00 AM Rocephin 1 gram [facility]#7753-8385-87 Reviewed 03/15/2010 12:00 AM PROTHROMBIN TIME Reviewed [...] Reviewed 09/28/2010 12:00 AM Kenalog per 10Mg [facility]#[address]-84(Srinath) Reviewed 05/05/2014 12:00 AM DRAIN/INJ JOINT/BURSA W/O US Reviewed 05/05/2014 12:00 AM SYNVISC-ONE, Per 1 Mg (6ml) [facility] [address]-95 Reviewed 05/06/2014 12:00 AM COMPREHEN METABOLIC PANEL [...] AM Rocephin 500 mg [facility]#[address]-18 Reviewed 07/14/2014 12:00 AM Fluzone MEDICARE Only Reviewed 11/29/2010 12:00 AM INJECT TRIGGER POINTS 3/> Reviewed 11/29/2010 12:00 AM Kenalog per 10Mg [facility]#[address]-73(Srinath) Reviewed 07/14/2014 12:00 AM Decadron injection Reviewed [...] CVX Pneumococcal 07/09/2016 [facility] Prevnar 13 [id number] Intramuscular Right Deltoid 07/09/2016 07/28/2015 133 History [...] Number Start Date Medicare RHC Medicare RHC [id number] N/A [employer] [place] [employer] [place] [id number] N/A [employer] Medicare [employer] Ins [id number] N/A [place] Medical Assistance [facility] Medical Assistance Prog [id number] N/A Medicare Part B Medicare Of [place] [id number] Friday, 2008 Medicare Part A Medicare Part A [id number] N/A [facility] RHC Comm [id number] Wednesday, 2015 [employer] - RHC - [place] State [place] [employer] - RHC [place] [id number] Wednesday, 2015 Medicare Part A Medicare - Lab/Xray [id number] N/A History of Encounters Visit Date Visit Type Provider 04/03/2017 Office visit Melecio Jaja DO 03/28/2017 Office visit Melecio Jaja DO 03/11/2017 Office visit Melecio Jaja DO 02/22/2017 Office visit Melecio Jaja DO 02/05/2017 Office visit Melecio Jaja DO 2017 Hospital Rasta Mckeon MD 2017 Hospital Ama Barrios MD 01/09/2017 Office visit Melecio Jaja DO 01/01/2017 [facility] Seth Devlin DO 12/31/2016 [facility] Rasta Mckeon MD 12/31/2016 Hospital mAa Barrios MD 12/21/2016 Office visit Melecio Jaja DO 11/20/2016 Office visit Meleico Jaja DO 11/05/2016 Office visit Melecio Jaja [...] Office visit Katty CRAIG 01/13/2015 Office visit eMlecio Cruzte DO 01/12/2015 Office visit Katty CRAIG 12/16/2014 [facility] Alfa Platt MD 12/14/2014 Voided Melecio Jaja DO 12/08/2014 Office visit Alfa Platt MD 12/08/2014 Office visit Melecio Jaja DO 12/07/2014 Nurse visit Riri Salazar MD 12/02/2014 [facility] Alfa Platt MD 12/02/2014 [facility] Magi Powers MD 11/29/2014 [facility] Magi Powers MD 11/29/2014 Voided Katty CRAIG 11/11/2014 Office visit 11/11/2014 Office visit Katty CRAIG 11/11/2014 Office visit Melecio [place] DO 10/14/2014 Office visit Katty CRAIG 09/14/2014 Office visit Katty CRAIG 09/08/2014 Hospital Ama Barrios MD 09/07/2014 Office visit Melecio Jaja DO 08/16/2014 Nurse visit Katty Jefferson EMERGENCY ROOM TECHNICIAN 07/19/2014 Office visit Katty DURÁNP 07/14/2014 Office [...] Wilkinson DO 12/18/2013 Office visit Janis Navarrete GIS MAPPING TECHNICIAN 12/08/2013 Office visit Janis Navarrete GIS MAPPING TECHNICIAN 11/25/2013 Office visit Katty CRAGI 10/29/2013 Office visit Melecio Wilkinson DO 09/22/2013 [...] Office visit Gorge Yo MD 05/12/2012 [facility] DO 05/11/2012 [facility] DO 03/13/2012 Office visit Gorge [...] 03/05/2011 Office visit Melecio Wilkinson DO 02/06/2011 [facility] Gorge Yo MD 01/08/2011 Office [...]
--- OUTSIDE RECORDS SUMMARY | 2018-01-22 16:49 | XMS REPORT ---
Author Author [facility] Medical Staff Organization [facility] Address [address] [place], [place] [id number] Phone [phone] Summary purpose TRANSITION OF CARE AUTO GENERATION Chief Complaint and Reason for Visit No authorized Reason for Visit (Admitting Diagnosis) is available for this visit. Problem list No authorized problems tracked for continuity of care are available for this visit. Encounters No authorized problems tracked for encounter diagnoses are available for this visit. Medications No medications recorded for this patient visit Allergies, adverse reactions, alerts No allergy information is available for this patient. Immunizations No immunizations recorded for this patient visit Relevant diagnostic tests and/or laboratory data No authorized results are available for this patient visit History of procedures No procedures recorded for this patient visit. Functional status No functional or cognitive status observations are available for this visit. Vital signs No authorized vital signs are available for this visit. Social history No Social History or smoking status observations were recorded for this visit. ( Unknown if ever smoked.) Treatment Plan No treatment plan text is available for this visit. Hospital discharge instructions No discharge instruction text is available for this visit.
--- OUTSIDE RECORDS SUMMARY | 2018-01-22 16:49 | XMS REPORT ---
Author Author Katty Jefferson [facility] Address [address] [place] [phone] Care Team Providers Care Fire Investigator Name Role Phone Katty Jefferson PCP Allergies [...] for 30 days Discontinued by Hospitalist at [place] Augmentin 875-125 mg oral tablet 11/07/2010 03/05/2011 [...] 12:00 AM Kenalog 40 Mg [facility]#9401-2664-21 Reviewed 08/23/2015 12:00 AM Decadron, Per 1 Mg [facility]# [address]-47 Reviewed 08/23/2015 12:00 AM Depo-Medrol, Per 80 Mg [facility]#[address]-17 Reviewed 11/03/2009 12:00 AM PROTHROMBIN TIME Reviewed 07/26/2011 12:00 AM X-RAY EXAM OF ABDOMEN Reviewed 10/12/2011 12:00 AM EXTREMITY STUDY Reviewed 01/01/2012 12:00 AM Rocephin 1 gm [facility]#[address]-95 Reviewed 01/16/2012 12:00 AM DRAIN/INJ JOINT/BURSA W/O US Reviewed 01/16/2012 12:00 AM Kenalog per 10Mg [facility]#[address]-95(Srinath) Reviewed 02/05/2012 12:[address] ABDOMEN W/O & W/DYE Reviewed 02/05/2012 12:[address] PELVIS W/O & W/DYE Reviewed 05/29/2012 12:00 AM DRAIN/INJ JOINT/BURSA W/O US Reviewed 05/29/2012 12:00 AM SYNVISC, Per 1 Mg (2ml) [facility] [address]-66 Reviewed 06/05/2012 12:00 AM DRAIN/INJ JOINT/BURSA W/O US Reviewed 06/05/2012 12:00 AM SYNVISC, Per 1 Mg (2ml) [facility] [address]-87 Reviewed 06/12/2012 12:00 AM DRAIN/INJ JOINT/BURSA W/O US Reviewed 06/12/2012 12:00 AM SYNVISC, Per 1 Mg (2ml) [facility] [address]-93 Reviewed 07/16/2012 12:00 AM Hepatobiliary ductal system imaging with functional assessment Reviewed 07/16/2012 12:00 AM Decadron 8 mg [facility]#45210222506 Reviewed 07/16/2012 12:00 AM Depo-Medrol 80mg [facility]#33919846427 Reviewed 07/16/2012 12:00 AM COMPREHEN METABOLIC PANEL Reviewed 07/16/2012 12:00 AM LIPID PANEL Reviewed 07/16/2012 12:00 AM Flu Injection 3 Years And Above [facility]# [address]-57 RHC Reviewed 08/19/2012 12:00 AM METABOLIC PANEL TOTAL CA Reviewed 12/21/2009 12:[address] ABDOMEN W/O & W/DYE Reviewed 10/02/2012 12:00 AM CHEST X-RAY 2VW FRONTAL&LATL Reviewed 10/09/2012 12:00 AM Decadron 8 mg [facility]#88355766133 Reviewed 10/09/2012 12:00 AM Depo-Medrol 80mg [facility]#67862285899 Reviewed 12/09/2012 12:00 AM CHEST X-RAY 2VW [...] 1 Mg (6ml) [facility] [address]-00 Reviewed 02/26/2013 12:[address] NECK SPINE W/O & W/DYE Reviewed 04/07/2013 12:00 AM INJECT TRIGGER POINTS 3/> Reviewed 04/07/2013 12:00 AM Kenalog per 10Mg [facility]#[address]-18(Srinath) Reviewed 07/21/2013 12:00 AM CHEST X-RAY 2VW FRONTAL&LATL Reviewed 07/21/2013 12:00 AM Decadron 8 mg [facility]# [address]-36 Reviewed 07/21/2013 12:00 AM Depo-Medrol 80 mg [facility]#[address]-18 Reviewed 07/21/2013 12:00 AM Rocephin 500 mg [facility]#4734-6043-72 Reviewed 09/22/2013 12:00 AM CHEST X-RAY 2VW FRONTAL&LATL Returned 10/29/2013 12:00 AM X-RAY EXAM OF ABDOMEN Reviewed 12/08/2013 12:00 AM THER/PROPH/DIAG INJ SC/IM Reviewed 12/08/2013 12:00 AM Decadron, Per 1 Mg [facility]# [address]-94 Reviewed 12/08/2013 12:00 AM Depo-Medrol, Per 80 Mg [facility]#9036-4473-83 Reviewed 12/08/2013 12:00 AM CHEST X-RAY 2VW [...] Returned 01/05/2014 12:00 AM Decadron 8 mg [facility]# [address]-30 Reviewed 01/05/2014 12:00 AM Depo-Medrol 80 mg [facility]#[address]-72 Reviewed 01/05/2014 12:00 AM Rocephin 1 gram [facility]#4270-7612-11 Reviewed 03/15/2010 12:00 AM PROTHROMBIN TIME Reviewed [...] 12:00 AM Kenalog per 10Mg [facility]#[address]-77(Srinath) Reviewed 05/05/2014 12:00 AM DRAIN/INJ JOINT/BURSA W/O US Reviewed 05/05/2014 12:00 AM SYNVISC-ONE, Per 1 Mg (6ml) [facility] [address]-42 Reviewed 05/06/2014 12:00 AM COMPREHEN METABOLIC PANEL [...] AM Rocephin 500 mg [facility]#[address]-64 Reviewed 07/14/2014 12:00 AM Fluzone MEDICARE Only Reviewed 11/29/2010 12:00 AM INJECT TRIGGER POINTS 3/> Reviewed 11/29/2010 12:00 AM Kenalog per 10Mg [facility]#[address]-10(Srinath) Reviewed 07/14/2014 12:00 AM Decadron injection Reviewed [...] Date Medicare Part A Medicare Part A [id number] N/A [facility] Medicare [employer] [facility] Ins [phone] N/A [place] Medical [place] Program [place] Medical [place] Prog [id number] N/A Medicare Part B Medicare Of [place] [id number] Friday, 2008 History of Encounters Visit Date [...] [facility] Voided Katty CRAIG 11/11/2014 Office visit Katty CRAIG 11/11/2014 Office visit Melecio Jaja DO 10/14/2014 Office visit Katty CRAIG 09/14/2014 Office visit Katty CRAIG 09/08/2014 [facility] Ama Barrios MD 09/07/2014 Office visit Melecio Jaja DO 08/16/2014 Nurse visit Katty CRAIG 07/19/2014 Office visit Katty CRAIG 07/14/2014 Office visit Melecio Jaja DO 06/21/2014 Office visit Katty Jefferson ICE GUARD SKATING RINK 05/20/2014 Office visit Melecio Jaja DO 05/14/2014 Office visit Melecio Jaja DO 05/05/2014 Office visit Katty Jefferson ICE GUARD SKATING RINK 04/26/2014 Office visit Katty Jefferson ICE GUARD SKATING RINK 03/24/2014 Office visit Katty DURÁNP 02/24/2014 Office visit Katty Jefferson ICE GUARD SKATING RINK 01/05/2014 Office visit Melecio Jaja DO 12/23/2013 Office visit Katty Jefferson ICE GUARD SKATING RINK 12/23/2013 Office visit Melecio Wilkinson DO 12/18/2013 Office visit Janis Landon MANAGER ORANGE 12/08/2013 Office visit Janis Navarrete MANAGER [place]ANGE 11/25/2013 Office visit Katty DURÁNP 10/29/2013 Office visit Melecio Wilkinson DO 09/22/2013 Office visit Janis Navarrete MANAGER ORANGE 07/28/2013 Office visit Katty DURÁNP 07/21/2013 Office [...] 05/14/2012 Office visit Gorge Yo MD 05/12/2012 [facility] DO 05/11/2012 [facility] DO 03/13/2012 Office visit [...] 03/05/2011 Office visit Melecio Wilkinson DO 02/06/2011 [facility] Gorge Yo MD 01/08/2011 Office [...] 04/06/2010 Office visit Gorge Yo MD 04/02/2010 [facility] Alfonso Camacho MD 03/31/2010 Laboratory [...]
--- OUTSIDE RECORDS SUMMARY | 2018-01-22 16:54 | XMS REPORT ---
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 Name Role Phone Katty Jefferson PCP Allergies [...] for 30 days Discontinued by Hospitalist at [place] Augmentin 875-125 mg oral tablet 11/07/2010 03/05/2011 [...] AM Kenalog, Per 10 Mg [facility]#4842-6024-81 Reviewed 06/19/2011 12:00 AM DRAIN/INJ JOINT/BURSA W/O US Reviewed 06/19/2011 12:00 AM Kenalog 40 Mg [facility]#0145-[address]-10 Reviewed 08/25/2015 12:00 AM OFFICE/OUTPATIENT VISIT EST Reviewed 08/23/2015 12:00 AM Decadron, Per 1 Mg [facility]# [address]-24 Reviewed 08/23/2015 12:00 AM Depo-Medrol, Per 80 Mg [facility]#[address]-80 Reviewed 11/03/2009 12:00 AM PROTHROMBIN TIME Reviewed 07/26/2011 12:00 AM X-RAY EXAM OF ABDOMEN Reviewed 10/12/2011 12:00 AM EXTREMITY STUDY Reviewed 01/01/2012 12:00 AM Rocephin 1 gm [facility]#[address]-93 Reviewed 01/16/2012 12:00 AM DRAIN/INJ JOINT/BURSA W/O US Reviewed 01/16/2012 12:00 AM Kenalog per 10Mg [facility]#[address]-01(Srinath) Reviewed 02/05/2012 12:[address] ABDOMEN W/O & W/DYE Reviewed 02/05/2012 12:[address] PELVIS W/O & W/DYE Reviewed 05/29/2012 12:00 AM DRAIN/INJ JOINT/BURSA W/O US Reviewed 05/29/2012 12:00 AM SYNVISC, Per 1 Mg (2ml) [facility] [address]-63 Reviewed 06/05/2012 12:00 AM DRAIN/INJ JOINT/BURSA W/O US Reviewed 06/05/2012 12:00 AM SYNVISC, Per 1 Mg (2ml) [facility] [address]-84 Reviewed 06/12/2012 12:00 AM DRAIN/INJ JOINT/BURSA W/O US Reviewed 06/12/2012 12:00 AM SYNVISC, Per 1 Mg (2ml) [facility] [address]-30 Reviewed 07/16/2012 12:00 AM Hepatobiliary ductal system imaging with functional assessment Reviewed 07/16/2012 12:00 AM Decadron 8 mg [facility]#99377388091 Reviewed 07/16/2012 12:00 AM Depo-Medrol 80mg [facility]#15540663206 Reviewed 07/16/2012 12:00 AM COMPREHEN METABOLIC PANEL Reviewed 07/16/2012 12:00 AM LIPID PANEL Reviewed 07/16/2012 12:00 AM Flu Injection 3 Years And Above [facility]# [address]-34 RHC Reviewed 08/19/2012 12:00 AM METABOLIC PANEL TOTAL CA Reviewed 12/21/2009 12:[address] ABDOMEN W/O & W/DYE Reviewed 10/02/2012 12:00 AM CHEST X-RAY 2VW FRONTAL&LATL Reviewed 10/09/2012 12:00 AM Decadron 8 mg [facility]#92960154369 Reviewed 10/09/2012 12:00 AM Depo-Medrol 80mg [facility]#49194680990 Reviewed 12/09/2012 12:00 AM CHEST X-RAY 2VW [...] SYNVISC-ONE, Per 1 Mg (6ml) [facility] [address]-87 Reviewed 02/26/2013 12:[address] NECK SPINE W/O & W/DYE Reviewed 04/07/2013 12:00 AM INJECT TRIGGER POINTS 3/> Reviewed 04/07/2013 12:00 AM Kenalog per 10Mg [facility]#[address]-73(Srinath) Reviewed 07/21/2013 12:00 AM CHEST X-RAY 2VW FRONTAL&LATL Reviewed 07/21/2013 12:00 AM Decadron 8 mg [facility]# [address]-32 Reviewed 07/21/2013 12:00 AM Depo-Medrol 80 mg [facility]#[address]-40 Reviewed 07/21/2013 12:00 AM Rocephin 500 mg [facility]#1361-3245-37 Reviewed 09/22/2013 12:00 AM CHEST X-RAY 2VW FRONTAL&LATL Returned 10/29/2013 12:00 AM X-RAY EXAM OF ABDOMEN Reviewed 12/08/2013 12:00 AM THER/PROPH/DIAG INJ SC/IM Reviewed 12/08/2013 12:00 AM Decadron, Per 1 Mg [facility]# [address]-84 Reviewed 12/08/2013 12:00 AM Depo-Medrol, Per 80 Mg [facility]#1663-8128-82 Reviewed 12/08/2013 12:00 AM CHEST X-RAY 2VW [...] 12:00 AM Decadron 8 mg [facility]# [address]-25 Reviewed 01/05/2014 12:00 AM Depo-Medrol 80 mg [facility]#[address]-76 Reviewed 01/05/2014 12:00 AM Rocephin 1 gram [facility]#6324-1915-90 Reviewed 03/15/2010 12:00 AM PROTHROMBIN TIME Reviewed [...] Reviewed 09/28/2010 12:00 AM Kenalog per 10Mg [facility]#[address]-11(Srinath) Reviewed 05/05/2014 12:00 AM DRAIN/INJ JOINT/BURSA W/O US Reviewed 05/05/2014 12:00 AM SYNVISC-ONE, Per 1 Mg (6ml) [facility] [address]-13 Reviewed 05/06/2014 12:00 AM COMPREHEN METABOLIC PANEL [...] 12:00 AM Rocephin 500 mg [facility]#[address]-40 Reviewed 07/14/2014 12:00 AM Fluzone MEDICARE Only Reviewed 11/29/2010 12:00 AM INJECT TRIGGER POINTS 3/> Reviewed 11/29/2010 12:00 AM Kenalog per 10Mg [facility]#[address]-87(Srinath) Reviewed 07/14/2014 12:00 AM Decadron injection Reviewed [...] 4.32 HGB 13.0 g/dLHCT 39.10 %MCV 91.0 [facility] [place] [place] 30.10 pgHC 33.20 g/dLRDW CV 16.60 %MPV 10.0 fLPLT [...] bronchitis, unspecified organism Aug 23 2015 9:53AM Payers Insurance Name Company Name Plan Name Plan Number Policy Number Policy Group Number Start Date Medicare Part A Medicare Part A [id number] N/A [employer] Medicare [facility] [place] Ins [phone] N/A [place] Medical Assistance [facility] Prog [id number] N/A Medicare Part B Medicare Of [place] [id number] Friday, 2008 History of Encounters Visit Date [...] 01/12/2015 Office visit Katty CRAIG 12/16/2014 [facility] Alaf Platt MD 12/14/2014 Voided Melecio Jaja DO 12/08/2014 Office visit Alfa Platt MD 12/08/2014 Office visit Melecio Wilkinson DO 12/07/2014 Nurse visit Riri Salazar MD 12/02/2014 [facility] Alfa Platt MD 12/02/2014 [facility] Magi Powers MD 11/29/2014 [facility] Magi Powers MD 11/29/2014 Voided Katty [...] Office visit Gorge Yo MD 10/30/2012 [facility] Gorge Yo MD 10/29/2012 Office visit [...] Office visit Gorge Yo MD 05/12/2012 [facility] DO 05/11/2012 [facility] DO 03/13/2012 Office visit Gorge [...] Office visit Melecio Wilkinson DO 02/06/2011 [facility] Gorge Yo MD 01/08/2011 Office visit Melecio Wilkinson DO 12/27/2010 Office visit Gorge Yo MD 11/29/2010 Office visit Gorge Yo MD 11/07/2010 Office visit Melecio Wilkinson DO 09/28/2010 Office visit Gorge Yo MD 09/05/2010 [facility] Gorge Yo MD 08/28/2010 Office visit Gorge Yo MD 08/07/2010 Office visit Janis Navarrete APRN 07/25/2010 Office visit Melecio Wilkinson DO 06/27/2010 Office visit Gorge Yo MD 06/14/2010 Office visit Melecio Wilkinson DO 06/06/2010 Laboratory Alfonso Camacho MD 06/01/2010 Office visit Melecio Wilkinson DO 04/17/2010 Office visit Melecio Wilkinson DO 04/06/2010 Office visit Gorge Yo MD 04/02/2010 [facility] Alfonso Camacho MD 03/31/2010 Laboratory Alfonso Camacho MD 03/31/2010 Laboratory Alfonso Camacho MD 03/31/2010 [facility] Alfonso Camacho MD 03/21/2010 Procedures Gorge Yo [...]
--- OUTSIDE RECORDS SUMMARY | 2018-01-22 16:59 | XMS REPORT ---
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 Bus Cleaner Name Role Phone Melecio Wilkinson PCP Unavailable [...] to 6 hours for 30 days pain clonidine HCl 0.2 mg oral tablet 07/12/2016 TAKE ONE TABLET BY MOUTH THREE TIMES DAILY NEEDED Name Start Date Expiration Date SIG Comments [...] for 30 days Discontinued by Hospitalist at [place] Augmentin 875-125 mg oral tablet 11/07/2010 03/05/2011 [...] route every 12 hours for 30 days [place] stoned Problem List Description Status Onset SI [...] 12:00 AM Kenalog, Per 10 Mg [facility]#2298-1835-81 Reviewed 06/19/2011 12:00 AM DRAIN/INJ JOINT/BURSA W/O US Reviewed 06/19/2011 12:00 AM Kenalog 40 Mg [facility]#3852-4933-29 Reviewed 08/25/2015 12:00 AM OFFICE/OUTPATIENT VISIT EST Reviewed 08/23/2015 12:00 AM Decadron, Per 1 Mg [facility]# [address]-44 Reviewed 08/23/2015 12:00 AM Depo-Medrol, Per 80 Mg [facility]#[address]-48 Reviewed 09/07/2015 12:00 AM X-RAY EXAM L-S [...] 01/01/2012 12:00 AM Rocephin 1 gm [facility]#[address]-18 Reviewed 01/16/2012 12:00 AM DRAIN/INJ JOINT/BURSA W/O US Reviewed 01/16/2012 12:00 AM Kenalog per 10Mg [facility]#[address]-22(Srinath) Reviewed 02/05/2012 12:[address] ABDOMEN W/O & W/DYE Reviewed 02/05/2012 12:[address] PELVIS W/O & W/DYE Reviewed 05/29/2012 12:00 AM DRAIN/INJ JOINT/BURSA W/O US Reviewed 05/29/2012 12:00 AM SYNVISC, Per 1 Mg (2ml) [facility] [address]-08 Reviewed 06/05/2012 12:00 AM DRAIN/INJ JOINT/BURSA W/O US Reviewed 06/05/2012 12:00 AM SYNVISC, Per 1 Mg (2ml) [facility] [address]-71 Reviewed 06/12/2012 12:00 AM DRAIN/INJ JOINT/BURSA W/O US Reviewed 06/12/2012 12:00 AM SYNVISC, Per 1 Mg (2ml) [facility] [address]-95 Reviewed 07/16/2012 12:00 AM Hepatobiliary ductal system imaging with functional assessment Reviewed 07/16/2012 12:00 AM Decadron 8 mg [facility]#[id number] Reviewed 07/16/2012 12:00 AM Depo-Medrol 80mg [facility]#[id number] Reviewed 07/16/2012 12:00 AM COMPREHEN METABOLIC PANEL Reviewed 07/16/2012 12:00 AM LIPID PANEL Reviewed 07/16/2012 12:00 AM Flu Injection 3 Years And Above [facility]# [address]-10 RHC Reviewed 08/19/2012 12:00 AM METABOLIC PANEL TOTAL CA Reviewed 12/21/2009 12:[address] ABDOMEN W/O & W/DYE Reviewed 10/02/2012 12:00 AM CHEST X-RAY 2VW FRONTAL&LATL Reviewed 10/09/2012 12:00 AM Decadron 8 mg [facility]#[id number] Reviewed 10/09/2012 12:00 AM Depo-Medrol 80mg [facility]#89499399226 Reviewed 12/09/2012 12:00 AM CHEST X-RAY 2VW [...] AM SYNVISC-ONE, Per 1 Mg (6ml) [facility] [address]-07 Reviewed 02/26/2013 12:[address] NECK SPINE W/O & W/DYE Reviewed 04/07/2013 12:00 AM INJECT TRIGGER POINTS 3/> Reviewed 04/07/2013 12:00 AM Kenalog per 10Mg [facility]#[address]-66(Srinath) Reviewed 07/21/2013 12:00 AM CHEST X-RAY 2VW FRONTAL&LATL Reviewed 07/21/2013 12:00 AM Decadron 8 mg [facility]# [address]-68 Reviewed 07/21/2013 12:00 AM Depo-Medrol 80 mg [facility]#[address]-41 Reviewed 07/21/2013 12:00 AM Rocephin 500 mg [facility]#2318-2458-01 Reviewed 09/22/2013 12:00 AM CHEST X-RAY 2VW FRONTAL&LATL Returned 10/29/2013 12:00 AM X-RAY EXAM OF ABDOMEN Reviewed 12/08/2013 12:00 AM THER/PROPH/DIAG INJ SC/IM Reviewed 12/08/2013 12:00 AM Decadron, Per 1 Mg [facility]# [address]-79 Reviewed 12/08/2013 12:00 AM Depo-Medrol, Per 80 Mg [facility]#1435-3213-19 Reviewed 12/08/2013 12:00 AM CHEST X-RAY 2VW [...] 01/05/2014 12:00 AM Decadron 8 mg [facility]# [address]-57 Reviewed 01/05/2014 12:00 AM Depo-Medrol 80 mg [facility]#[address]-36 Reviewed 01/05/2014 12:00 AM Rocephin 1 gram [facility]#1013-6877-85 Reviewed 03/15/2010 12:00 AM PROTHROMBIN TIME Reviewed [...] AM Kenalog per 10Mg [facility]#[address]-33(Srinath) Reviewed 05/05/2014 12:00 AM DRAIN/INJ JOINT/BURSA W/O US Reviewed 05/05/2014 12:00 AM SYNVISC-ONE, Per 1 Mg (6ml) [facility] [address]-65 Reviewed 05/06/2014 12:00 AM COMPREHEN METABOLIC PANEL [...] 11/07/2010 12:00 AM Rocephin 500 mg [facility]#[address]-32 Reviewed 07/14/2014 12:00 AM Fluzone MEDICARE Only Reviewed 11/29/2010 12:00 AM INJECT TRIGGER POINTS 3/> Reviewed 11/29/2010 12:00 AM Kenalog per 10Mg [facility]#[address]-95(Srinath) Reviewed 07/14/2014 12:00 AM Decadron injection Reviewed [...] CVX Pneumococcal 07/09/2016 [facility] Prevnar 13 [id number] Intramuscular Right Deltoid 07/09/2016 07/28/2015 133 History [...] Start Date Medicare Part A Medicare C [id number] N/A [facility] - RHC [facility] [employer] - RHC [place] State Plan [id number] Wednesday, 2015 Medicare Part A Medicare - Lab/Xray [id number] N/A [employer] Medicare [employer] Ins [id number] N/A [place] Medical Assistance [facility] Medical Assistance Prog [id number] N/A Medicare Part B Medicare Of [place] [id number] Friday, February 22, 2008 Medicare Part A Medicare Part A [id number] N/A [facility] - [facility] - [facility] Comm [id number] Wednesday, September 23, 2015 History of Encounters Visit Date Visit Type Provider 07/09/2016 Office visit Melecio Wilkinson DO 06/07/2016 Office visit Melecio Cruzte DO 05/03/2016 Office visit Melecio Cruzte DO 04/11/2016 Office visit Melecio Wilkinson DO 02/17/2016 Office visit Melecio Jaja DO 01/19/2016 Office visit Melecio Jaja DO 12/20/2015 Office visit Melecio Jaja DO 11/21/2015 Office visit Melecio Cruzte DO 10/17/2015 Office visit Melecio Cruzte DO 09/26/2015 Office visit Melecio Jaja DO 09/07/2015 Office visit Katty CRAIG 08/25/2015 Nurse visit Katty CRAIG 08/23/2015 Office visit Melecio Cruzte DO 08/08/2015 Office visit Melecio Jaja DO [...] 12/07/2014 Nurse visit Riri Salazar MD 12/02/2014 [facility] Alfa Platt MD 12/02/2014 [facility] Magi Powers MD 11/29/2014 [facility] Magi Powers MD 11/29/2014 Voided Katty CRAIG 11/11/2014 Office visit 11/11/2014 Office visit Katty CRAIG 11/11/2014 Office visit Melecio Wilkinson DO 10/14/2014 Office visit Katty CRAIG 09/14/2014 Office visit Katty CRAIG 09/08/2014 [facility] Ama Barrios MD 09/07/2014 Office visit Meelcio Wilkinson DO 08/16/2014 Nurse visit Katty CRAIG [...] 01/06/2013 Office visit Gorge Yo MD 12/09/2012 [facility] Ama Barrios MD 12/09/2012 Office visit Stephanie MojicaNeville Richardson NURSES' REGISTRY DIRECTOR 11/26/2012 Office visit Gorge Yo MD 10/30/2012 [facility] Gorge Yo MD 10/29/2012 Office [...] 05/14/2012 Office visit Gorge Yo MD 05/12/[address] [facility] DO 05/11/[address] [facility] DO 03/13/2012 Office visit Gorge Yo MD 02/05/2012 Office visit Melecio Wilkinson DO 01/31/2012 Office visit Gorge Yo MD 01/16/2012 Office visit Gorge Yo MD 01/01/2012 Office visit Melecio Wilkinson DO 11/16/2011 Office visit Gorge Yo MD 10/05/2011 Office visit Gorge Yo MD 10/01/2011 Office visit Janis Navarrete NURSES' REGISTRY DIRECTOR 09/06/2011 Office visit Gorge Yo MD 07/26/2011 Office visit Melecio Wilkinson DO 06/19/2011 Office visit Gorge Yo MD 06/06/2011 Office visit Gorge Yo MD 03/22/2011 Office visit Gorge Yo MD 03/05/2011 Office visit Melecio Wilkinson DO 02/06/2011 [facility] Gorge Yo MD 01/08/2011 Office [...] MD 03/31/2010 Laboratory Alfonso Camacho MD 03/31/2010 [facility] Alfonso Camacho MD 03/21/2010 Procedures Gorge [...]
--- OUTSIDE RECORDS SUMMARY | 2018-01-22 17:05 | XMS REPORT ---
Author Author Melecio Wilkinson [facility] Address [address] [place] [phone] Care Team Providers Care Operations Dispatcher Name Role Phone Melecio Wilkinson PCP Unavailable [...] for 30 days Discontinued by Hospitalist at [place] niacin 500 mg oral tablet 10/10/2016 take [...] 07/11/2015 12:00 AM Kenalog, Per 10 Mg [place]#6364-7732-74 Reviewed 12/07/2014 12:00 AM OFFICE/OUTPATIENT VISIT EST Reviewed 06/19/2011 12:00 AM DRAIN/INJ JOINT/BURSA W/O US Reviewed 06/19/2011 12:00 AM Kenalog 40 Mg Im-Nd#5640-2486-74 Reviewed 08/25/2015 12:00 AM OFFICE/OUTPATIENT VISIT EST Reviewed 08/23/2015 12:00 AM Decadron, Per 1 Mg ND# [address]-40 Reviewed 08/23/2015 12:00 AM Depo-Medrol, Per 80 Mg [place]#[address]-66 Reviewed 09/07/2015 12:00 AM X-RAY EXAM L-S [...] 12:00 AM Decadron, Per 1 Mg ND# [address]-61 Reviewed 10/23/2015 12:00 AM Depo-Medrol, Per 80 Mg [facility]#[address]-30 Reviewed 07/26/2011 12:00 AM X-RAY EXAM OF ABDOMEN Reviewed 11/21/2015 12:00 AM Orthopedics Consultation Reviewed 11/21/2015 12:00 AM Physical Therapy Consultation Reviewed 12/20/2015 12:00 AM EXTREMITY STUDY Reviewed 10/12/2011 12:00 AM EXTREMITY STUDY Reviewed 05/10/2016 12:00 AM CONTRAST X-RAY OF SHOULDER Reviewed 07/09/2016 12:00 AM PNEUMOCOCCAL VACC 13 RIP IM Reviewed 08/08/2016 12:00 AM Decadron, Per 1 Mg [facility]# [address]-00 Reviewed 08/08/2016 12:00 AM Depo-Medrol, Per 80 Mg [facility]#[address]-22 Reviewed 01/01/2012 12:00 AM AIRWAY INHALATION TREATMENT Reviewed 01/01/2012 12:00 AM Rocephin 1 gm [facility]#[address]-10 Reviewed 01/16/2012 12:00 AM DRAIN/INJ JOINT/BURSA W/O US Reviewed 01/16/2012 12:00 AM Kenalog per 10Mg [facility]#[address]-49(Srinath) Reviewed 09/26/2016 12:00 AM CHEST X-RAY 2VW [...] AM SYNVISC, Per 1 Mg (2ml) [facility] [address]-74 Reviewed 06/05/2012 12:00 AM DRAIN/INJ JOINT/BURSA W/O US Reviewed 06/05/2012 12:00 AM SYNVISC, Per 1 Mg (2ml) [facility] [address]-98 Reviewed 06/12/2012 12:00 AM DRAIN/INJ JOINT/BURSA W/O US Reviewed 06/12/2012 12:00 AM SYNVISC, Per 1 Mg (2ml) [facility] [address]-49 Reviewed 07/16/2012 12:00 AM Hepatobiliary ductal system imaging with functional assessment Reviewed 07/16/2012 12:00 AM Decadron 8 mg [facility]#59336359631 Reviewed 07/16/2012 12:00 AM Depo-Medrol 80mg [facility]#33857031661 Reviewed 07/16/2012 12:00 AM COMPREHEN METABOLIC PANEL Reviewed 07/16/2012 12:00 AM LIPID PANEL Reviewed 07/16/2012 12:00 AM Flu Injection 3 Years And Above [facility]# [address]-95 RHC Reviewed 08/19/2012 12:00 AM METABOLIC PANEL TOTAL CA Reviewed 12/21/2009 12:[address] ABDOMEN W/O & W/DYE Reviewed 10/02/2012 12:00 AM CHEST X-RAY 2VW FRONTAL&LATL Reviewed 10/09/2012 12:00 AM Decadron 8 mg [facility]#41795286160 Reviewed 10/09/2012 12:00 AM Depo-Medrol 80mg [facility]#96840027428 Reviewed 12/09/2012 12:00 AM CHEST X-RAY 2VW [...] AM SYNVISC-ONE, Per 1 Mg (6ml) [facility] [address]-66 Reviewed 02/26/2013 12:00 AM Physical Therapy Reviewed 02/26/2013 12:[address] NECK SPINE W/O & W/DYE Reviewed 04/07/2013 12:00 AM INJECT TRIGGER POINTS 3/> Reviewed 04/07/2013 12:00 AM Kenalog per 10Mg [facility]#[address]-57(Srinath) Reviewed 07/21/2013 12:00 AM CHEST X-RAY 2VW FRONTAL&LATL Reviewed 07/21/2013 12:00 AM Decadron 8 mg [facility]# [address]-75 Reviewed 07/21/2013 12:00 AM Depo-Medrol 80 mg [facility]#[address]-81 Reviewed 07/21/2013 12:00 AM Rocephin 500 mg [facility]#9911-6007-65 Reviewed 09/22/2013 12:00 AM CHEST X-RAY 2VW FRONTAL&LATL Reviewed 10/29/2013 12:00 AM X-RAY EXAM OF ABDOMEN Reviewed 12/08/2013 12:00 AM THER/PROPH/DIAG INJ SC/IM Reviewed 12/08/2013 12:00 AM Decadron, Per 1 Mg [facility]# [address]-56 Reviewed 12/08/2013 12:00 AM Depo-Medrol, Per 80 Mg [facility]#5715-7189-00 Reviewed 12/08/2013 12:00 AM CHEST X-RAY 2VW [...] 01/05/2014 12:00 AM Decadron 8 mg [facility]# [address]-99 Reviewed 01/05/2014 12:00 AM Depo-Medrol 80 mg [facility]#[address]-42 Reviewed 01/05/2014 12:00 AM Rocephin 1 gram [facility]#7447-8439-16 Reviewed 03/15/2010 12:00 AM PROTHROMBIN TIME Reviewed [...] 09/28/2010 12:00 AM Kenalog per 10Mg [facility]#[address]-21(Srinath) Reviewed 05/05/2014 12:00 AM DRAIN/INJ JOINT/BURSA W/O US Reviewed 05/05/2014 12:00 AM SYNVISC-ONE, Per 1 Mg (6ml) [facility] [address]-41 Reviewed 05/06/2014 12:00 AM COMPREHEN METABOLIC PANEL [...] 11/07/2010 12:00 AM Rocephin 500 mg [facility]#[address]-58 Reviewed 07/14/2014 12:00 AM Fluzone MEDICARE Only Reviewed 11/29/2010 12:00 AM INJECT TRIGGER POINTS 3/> Reviewed 11/29/2010 12:00 AM Kenalog per 10Mg [facility]#[address]-78(Srinath) Reviewed 07/14/2014 12:00 AM Decadron injection Reviewed [...] CVX Pneumococcal 07/09/2016 [facility] Prevnar 13 [id number] Intramuscular Right Deltoid 07/09/2016 07/28/2015 133 History [...] Heart Failure Oct 29 2013 9:08AM Hypertension b 2013 9:08AM Diabetes [...] Number Policy Group Number Start Date Medicare RH Medicare [facility] [id number] N/A [employer] [place] State Plan [employer] [place] State Plan [id number] N/A [employer] Medicare [employer] Ins [phone] N/A [place] Medical Assistance Program [place] Medical [place] Prog [id number] N/A Medicare Part B Medicare Of [place] [id number] Friday, 2008 Medicare Part A Medicare Part A [id number] N/A [facility] - RHC - Community Plan [facility] RHC Comm [id number] Wednesday, 2015 [employer] - [place] State Plan [employer] - [place] State Plan [id number] Wednesday, 2015 Medicare Part A Medicare - Lab/Xray [id number] N/A History of Encounters Visit Date Visit [...] CRAIG 07/19/2014 Office visit Katty M. Ronny PNP 07/14/2014 Office visit Melecio Jaja DO 06/21/2014 Office visit Katty Jefferson PNP 05/20/2014 Office visit Melecio Jaja DO 05/14/2014 Office visit Melecio [place] DO 05/05/2014 Office visit Katty Jefferson PNP 04/26/2014 Office visit Katty M. Ronny PNP 03/24/2014 Office visit Katty Minerva Ronny PNP 02/24/2014 Office visit Katty Minerva Ronny PNP 01/05/2014 Office visit Melecio Jaja DO 12/23/2013 Office visit Kattyalton Jefferson PNP 12/23/2013 Office visit Melecio Jaja DO 12/18/2013 Office visit Janis Landon FLASH RANGING CREWMEMBER 12/08/2013 Office visit Janis Landon FLASH RANGING CREWMEMBER 11/25/2013 Office visit Katty MisaelNeville Jefferson PNP 10/29/2013 Office visit Melecio Wilkinson DO 09/22/2013 Office visit Janis Navarrete FLASH RANGING CREWMEMBER 07/28/2013 Office visit Katty DURÁNP 07/21/2013 Office visit Melecio Jaja DO 07/08/2013 Office visit Katty DURÁNP 05/06/2013 Office visit Melecio Wilkinson DO 04/07/2013 Office visit Gorge Yo MD 02/26/2013 Office visit Melecio Wilkinson DO 01/29/2013 Office visit Gorge Yo MD 01/06/2013 Office visit Gorge Yo MD 12/09/2012 [facility] Ama Barrios MD 12/09/2012 Office visit Stephanie Richardson FLASH RANGING CREWMEMBER 11/26/2012 Office visit Gorge Yo MD 10/30/2012 [...] 05/14/2012 Office visit Gorge Yo MD 05/12/2012 [facility] DO 05/11/2012 [facility] DO 03/13/2012 Office visit Gorge Yo [...] 03/31/2010 Hospital Alfonso Camacho MD 03/21/2010 Procedures Goreg oY MD 03/16/2010 Office visit Gorge Yo MD [...]
--- OUTSIDE RECORDS SUMMARY | 2018-01-22 17:05 | XMS REPORT ---
Author Author [email or web address] Medical Staff Organization [facility] Address [address] [place], [place] [id number] Phone [phone] Summary purpose TRANSITION OF CARE AUTO GENERATION [...]
--- OUTSIDE RECORDS SUMMARY | 2018-01-22 17:12 | XMS REPORT ---
Author Author Melecio Wilkinson [facility] Address [address] [place], [place] [phone] Care Team Providers Care Cable Installation Technician Name Role Phone Melecio Wilkinson PCP [...] for 30 days Discontinued by Hospitalist at [place] niacin 500 mg oral tablet 10/10/2016 take [...] 10 Mg [facility]#9608-0461-98 Reviewed 12/07/2014 12:00 AM OFFICE/OUTPATIENT VISIT EST Reviewed 06/19/2011 12:00 AM DRAIN/INJ JOINT/BURSA W/O US Reviewed 06/19/2011 12:00 AM Kenalog 40 Mg [facility]#7565-5425-69 Reviewed 08/25/2015 12:00 AM OFFICE/OUTPATIENT VISIT EST Reviewed 08/23/2015 12:00 AM Decadron, Per 1 Mg [facility]# [address]-90 Reviewed 08/23/2015 12:00 AM Depo-Medrol, Per 80 Mg [facility]#[address]-21 Reviewed 09/07/2015 12:00 AM X-RAY EXAM L-S [...] Mg [facility]# [address]-84 Reviewed 10/23/2015 12:00 AM Depo-Medrol, Per 80 Mg [facility]#[address]-43 Reviewed 07/26/2011 12:00 AM X-RAY EXAM OF [...] Mg [facility]# [address]-97 Reviewed 08/08/2016 12:00 AM Depo-Medrol, Per 80 Mg [facility]#[address]-58 Reviewed 01/01/2012 12:00 AM AIRWAY INHALATION TREATMENT Reviewed 01/01/2012 12:00 AM Rocephin 1 gm [facility]#[address]-60 Reviewed 01/16/2012 12:00 AM DRAIN/INJ JOINT/BURSA W/O US Reviewed 01/16/2012 12:00 AM Kenalog per 10Mg [facility]#[address]-22(Srinath) Reviewed 09/26/2016 12:00 AM CHEST X-RAY 2VW [...] (2ml) [facility] [address]-43 Reviewed 06/05/2012 12:00 AM DRAIN/INJ JOINT/BURSA W/O US Reviewed 06/05/2012 12:00 AM SYNVISC, Per 1 Mg (2ml) [facility] [address]-01 Reviewed 06/12/2012 12:00 AM DRAIN/INJ JOINT/BURSA W/O US Reviewed 06/12/2012 12:00 AM SYNVISC, Per 1 Mg (2ml) [facility] [address]-19 Reviewed 07/16/2012 12:00 AM Hepatobiliary ductal system imaging with functional assessment Reviewed 07/16/2012 12:00 AM Decadron 8 mg [facility]#04746797205 Reviewed 07/16/2012 12:00 AM Depo-Medrol 80mg [facility]#20888873053 Reviewed 07/16/2012 12:00 AM COMPREHEN METABOLIC PANEL Reviewed 07/16/2012 12:00 AM LIPID PANEL Reviewed 07/16/2012 12:00 AM Flu Injection 3 Years And Above [facility]# [address]-71 RHC Reviewed 08/19/2012 12:00 AM METABOLIC PANEL TOTAL CA Reviewed 12/21/2009 12:[address] ABDOMEN W/O & W/DYE Reviewed 10/02/2012 12:00 AM CHEST X-RAY 2VW FRONTAL&LATL Reviewed 10/09/2012 12:00 AM Decadron 8 mg [facility]#78763850678 Reviewed 10/09/2012 12:00 AM Depo-Medrol 80mg [facility]#18760713561 Reviewed 12/09/2012 12:00 AM CHEST X-RAY 2VW [...] (6ml) [facility] [address]-48 Reviewed 02/26/2013 12:00 AM Physical Therapy Reviewed 02/26/2013 12:[address] NECK SPINE W/O & W/DYE Reviewed 04/07/2013 12:00 AM INJECT TRIGGER POINTS 3/> Reviewed 04/07/2013 12:00 AM Kenalog per 10Mg [facility]#[address]-88(Srinath) Reviewed 07/21/2013 12:00 AM CHEST X-RAY 2VW FRONTAL&LATL Reviewed 07/21/2013 12:00 AM Decadron 8 mg [facility]# [address]-35 Reviewed 07/21/2013 12:00 AM Depo-Medrol 80 mg [facility]#[address]-24 Reviewed 07/21/2013 12:00 AM Rocephin 500 mg [facility]#4474-0072-42 Reviewed 09/22/2013 12:00 AM CHEST X-RAY 2VW FRONTAL&LATL Reviewed 10/29/2013 12:00 AM X-RAY EXAM OF ABDOMEN Reviewed 12/08/2013 12:00 AM THER/PROPH/DIAG INJ SC/IM Reviewed 12/08/2013 12:00 AM Decadron, Per 1 Mg [facility]# [address]-77 Reviewed 12/08/2013 12:00 AM Depo-Medrol, Per 80 Mg [facility]#6310-8246-56 Reviewed 12/08/2013 12:00 AM CHEST X-RAY 2VW [...] mg [facility]# [address]-14 Reviewed 01/05/2014 12:00 AM Depo-Medrol 80 mg [facility]#[address]-60 Reviewed 01/05/2014 12:00 AM Rocephin 1 gram [facility]#4812-3882-55 Reviewed 03/15/2010 12:00 AM PROTHROMBIN TIME Reviewed [...] Reviewed 09/28/2010 12:00 AM Kenalog per 10Mg [facility]#[address]-76(Srinath) Reviewed 05/05/2014 12:00 AM DRAIN/INJ JOINT/BURSA W/O US Reviewed 05/05/2014 12:00 AM SYNVISC-ONE, Per 1 Mg (6ml) [facility] [address]-28 Reviewed 05/06/2014 12:00 AM COMPREHEN METABOLIC PANEL [...] 500 mg [facility]#[address]-06 Reviewed 07/14/2014 12:00 AM Fluzone MEDICARE Only Reviewed 11/29/2010 12:00 AM INJECT TRIGGER POINTS 3/> Reviewed 11/29/2010 12:00 AM Kenalog per 10Mg [facility]#[address]-28(Srinath) Reviewed 07/14/2014 12:00 AM Decadron injection Reviewed [...] CVX Pneumococcal 07/09/2016 [facility] Prevnar 13 [id number] Intramuscular Right Deltoid 07/09/2016 07/28/2015 133 History [...] of right lung Mar 28 2017 1:34PM Payers Insurance Name Company Name Plan Name Plan Number Policy Number Policy Group Number Start Date Medicare RHC Medicare RHC [id number] N/A [employer] [place] [employer] [place] State Plan [id number] N/A [employer] Medicare [employer] [id number] N/A [place] Medical Assistance [facility] Medical Assistance Prog [id number] N/A Medicare Part B Medicare Of [place] [id number] Friday, 2008 Medicare Part A Medicare Part A [id number] N/A [facility] - RHC - [facility] Plan [facility] RHC Comm [id number] Wednesday, 2015 [employer] - R[place] - [place] State Plan [employer] [place] State Plan [id number] Wednesday, 2015 Medicare Part A Medicare - Lab/Xray [id number] N/A History of Encounters Visit Date Visit Type Provider 03/28/2017 Office visit Melecio Jaja DO 03/11/2017 Office visit Melecio Jaja DO 02/22/2017 Office visit Melecio Jaja DO 02/05/2017 Office visit Melecio Jaja DO 2017 [facility] Rasta Mckeon MD 2017 Hospital Ama Barrios MD 01/09/2017 Office visit Melecio Jaja DO 01/01/2017 [facility] Seth Devlin DO 12/31/2016 [facility] Rasta Mckeon MD 12/31/2016 [facility] Barrios [...] 05/14/2012 Office visit Gorge Yo MD 05/12/2012 [facility] DO 05/11/2012 [facility] DO 03/13/2012 Office visit Gorge [...]
--- OUTSIDE RECORDS SUMMARY | 2018-01-22 17:16 | XMS REPORT ---
Author Author Katty Jefferson [facility] Address [address] [place] [id number] Care Team Providers Care Sharepoint Web Developer Name Role Phone Katty Jefferson PCP Allergies [...] for 30 days Discontinued by Hospitalist at [place] Augmentin 875-125 mg oral tablet 11/07/2010 03/05/2011 [...] 40 Mg [facility]#7094-3637-01 Reviewed 11/03/2009 12:00 AM PROTHROMBIN TIME Reviewed 07/26/2011 12:00 AM X-RAY EXAM OF ABDOMEN Reviewed 10/12/2011 12:00 AM EXTREMITY STUDY Reviewed 01/01/2012 12:00 AM Rocephin [address] [facility]#[address]-16 Reviewed 01/16/2012 12:00 AM DRAIN/INJ JOINT/BURSA W/O US Reviewed 01/16/2012 12:00 AM Kenalog per 10Mg [facility]#[address]-24(Srinath) Reviewed 02/05/2012 12:[address] ABDOMEN W/O & W/DYE Reviewed 02/05/2012 12:[address] PELVIS W/O & W/DYE Reviewed 05/29/2012 12:00 AM DRAIN/INJ JOINT/BURSA W/O US Reviewed 05/29/2012 12:00 AM SYNVISC, Per 1 Mg (2ml) [facility] [address]-57 Reviewed 06/05/2012 12:00 AM DRAIN/INJ JOINT/BURSA W/O US Reviewed 06/05/2012 12:00 AM SYNVISC, Per 1 Mg (2ml) [facility] [address]-48 Reviewed 06/12/2012 12:00 AM DRAIN/INJ JOINT/BURSA W/O US Reviewed 06/12/2012 12:00 AM SYNVISC, Per 1 Mg (2ml) [facility] [address]-75 Reviewed 07/16/2012 12:00 AM Hepatobiliary ductal system imaging with functional assessment Reviewed 07/16/2012 12:00 AM Decadron [address] [facility]#[id number] Reviewed 07/16/2012 12:00 AM Depo-Medrol 80mg [place]#[id number] Reviewed 07/16/2012 12:00 AM COMPREHEN METABOLIC PANEL Reviewed 07/16/2012 12:00 AM LIPID PANEL Reviewed 07/16/2012 12:00 AM Flu Injection 3 Years And [address] [facility]# [address]-94 RHC Reviewed 08/19/2012 12:00 AM METABOLIC PANEL TOTAL CA Reviewed 12/21/2009 12:[address] ABDOMEN W/O & W/DYE Reviewed 10/02/2012 12:00 AM CHEST X-RAY 2VW FRONTAL&LATL Reviewed 10/09/2012 12:00 AM Decadron [address] [facility]#[id number] Reviewed 10/09/2012 12:00 AM Depo-Medrol 80mg [facility]#55023121390 Reviewed 12/09/2012 12:00 AM CHEST X-RAY 2VW [...] Per 1 Mg (6ml) [facility] [address]-57 Reviewed 02/26/2013 12:[address] NECK SPINE W/O & W/DYE Reviewed 04/07/2013 12:00 AM INJECT TRIGGER POINTS 3/> Reviewed 04/07/2013 12:00 AM Kenalog per 10Mg [facility]#[address]-64(Srinath) Reviewed 07/21/2013 12:00 AM CHEST X-RAY 2VW FRONTAL&LATL Reviewed 07/21/2013 12:00 AM Decadron [address] [facility]# [address]-39 Reviewed 07/21/2013 12:00 AM Depo-Medrol [address] [facility]#[address]-22 Reviewed 07/21/2013 12:00 AM Rocephin [address] [facility]#2347-4043-44 Reviewed 09/22/2013 12:00 AM CHEST X-RAY 2VW FRONTAL&LATL Returned 10/29/2013 12:00 AM X-RAY EXAM OF ABDOMEN Reviewed 12/08/2013 12:00 AM THER/PROPH/DIAG INJ SC/IM Reviewed 12/08/2013 12:00 AM Decadron, Per [address] [facility]# [address]-85 Reviewed 12/08/2013 12:00 AM Depo-Medrol, Per [address] [facility]#2802-7031-77 Reviewed 12/08/2013 12:00 AM CHEST X-RAY 2VW [...] Returned 01/05/2014 12:00 AM Decadron [address] [facility]# [address]-81 Reviewed 01/05/2014 12:00 AM Depo-Medrol [address] [facility]#[address]-43 Reviewed 01/05/2014 12:00 AM Rocephin [address] [facility]#9787-7694-83 Reviewed 03/15/2010 12:00 AM PROTHROMBIN TIME Reviewed [...] per 10Mg [facility]#[address]-23(Srinath) Reviewed 05/05/2014 12:00 AM DRAIN/INJ JOINT/BURSA W/O US Reviewed 05/05/2014 12:00 AM SYNVISC-ONE, Per 1 Mg (6ml) [facility] [address]-24 Reviewed 05/06/2014 12:00 AM COMPREHEN METABOLIC PANEL [...] AM Rocephin [address] [facility]#[address]-02 Reviewed 07/14/2014 12:00 AM Fluzone MEDICARE Only Reviewed 11/29/2010 12:00 AM INJECT TRIGGER POINTS 3/> Reviewed 11/29/2010 12:00 AM Kenalog per 10Mg [facility]#[address]-00(Srinath) Reviewed 07/14/2014 12:00 AM Decadron injection Reviewed [...] 2:42PM Lumbar Radiculitis Jul 06 2015 2:42PM Cervicalgia Jul 06 2015 2:42PM Muscle Spasm Jul 06 2015 2:42PM Pain in joint; Knee,right Jul 06 2015 2:42PM Cervical radiculopathy Jul 06 2015 2:42PM Acute bronchitis, unspecified organism Jun 27 2015 1:39PM Left shoulder pain Jun 27 2015 1:39PM Payers Insurance Name Company Name Plan Name Plan Number Policy Number Policy Group Number Start Date Medicare Part A Medicare Part A [id number] N/A [facility] Medicare [facility] Life Ins [phone] N/A [place] Medical Assistance [facility] Medical Assistance Prog [id number] N/A Medicare Part B Medicare Of [place] [id number] Friday, 2008 History of Encounters Visit Date [...] DO 01/12/2015 Office visit Katty CRAIG 12/16/2014 [facility] Alfa Platt MD 12/14/2014 Voided Melecio Wilkinson DO 12/08/2014 Office visit Alfa Platt MD 12/08/2014 Office visit Melecio Wilkinson DO 12/07/2014 Nurse visit Riri Salazar MD 12/02/2014 [facility] Alfa Platt MD 12/02/2014 [facility] Magi Powers MD 11/29/2014 [facility] Magi Powers MD 11/29/2014 Voided Katty CRAIG [...] Jaja DO 12/18/2013 Office visit Janis Navarrete INVESTIGATOR NARCOTICS 12/08/2013 Office visit Janis Navarrete INVESTIGATOR NARCOTICS 11/25/2013 Office visit Katty CRAIG 10/29/2013 Office [...] 11/26/2012 Office visit Gorge Yo MD 10/30/2012 [facility] Gorge Yo MD 10/29/2012 Office visit Gorge Yo MD 10/09/2012 Office visit Melecio Wilkinson DO 08/19/2012 Office visit Melecio Wilkinson DO 08/04/2012 Office visit Melecio Wilkinson DO 07/24/2012 Office visit Gorge Yo MD 07/16/2012 Office visit eMlecio Wilkinson DO 06/12/2012 Office visit Gorge Yo [...] 03/05/2011 Office visit Melecio Wilkinson DO 02/06/2011 [facility] Gorge Yo MD 01/08/2011 Office visit Melecio Wilkinson DO 12/27/2010 Office visit Gorge Yo MD 11/29/2010 Office visit Gorge Yo MD 11/07/2010 Office visit Melecio Wilkinson DO 09/28/2010 Office visit Gorge Yo MD 09/05/2010 [facility] Gorge Yo MD 08/28/2010 Office visit Gorge Yo MD 08/07/2010 Office visit Janis Navarrete APRN 07/25/2010 Office visit Melecio Wilkinson DO 06/27/2010 Office visit Gorge Yo MD 06/14/2010 Office visit Melecio Wilkinson DO 06/06/2010 Laboratory Alfonso Camacho MD 06/01/2010 Office visit Melecio Wilkinson DO 04/17/2010 Office visit Melecio Wilkinson DO 04/06/2010 Office visit Gorge Yo MD 04/02/2010 [facility] Alfonso Camacho MD 03/31/2010 Laboratory Alfonso Camacho MD 03/31/2010 Laboratory Alfonso Camacho MD 03/31/2010 [facility] Alfonso Camacho MD 03/21/2010 Procedures Gorge Yo [...]
--- OUTSIDE RECORDS SUMMARY | 2018-01-22 17:22 | XMS REPORT ---
Author Author Melecio Wilkinson [facility] Address [address] [place] [id number] Care Team Providers Care District Captain Name Role Phone Melecio Wilkinson PCP Unavailable [...] for 30 days Discontinued by Hospitalist at [place] Augmentin 875-125 mg oral tablet 11/07/2010 03/05/2011 [...] route every 12 hours for 30 days Terry stoned Problem List Description Status Onset SI [...] 10 Mg [facility]#5512-6698-05 Reviewed 06/19/2011 12:00 AM DRAIN/INJ JOINT/BURSA W/O US Reviewed 06/19/2011 12:00 AM Kenalog 40 Mg [facility]#9527-2109-75 Reviewed 08/25/2015 12:00 AM OFFICE/OUTPATIENT VISIT EST Reviewed 08/23/2015 12:00 AM Decadron, Per 1 Mg [facility]# [address]-04 Reviewed 08/23/2015 12:00 AM Depo-Medrol, Per 80 Mg [facility]#[address]-35 Reviewed 09/07/2015 12:00 AM X-RAY EXAM L-S [...] Mg [facility]# [address]-90 Reviewed 08/08/2016 12:00 AM Depo-Medrol, Per 80 Mg [facility]#[address]-22 Reviewed 01/01/2012 12:00 AM Rocephin 1 gm [facility]#[address]-12 Reviewed 01/16/2012 12:00 AM DRAIN/INJ JOINT/BURSA W/O US Reviewed 01/16/2012 12:00 AM Kenalog per 10Mg [facility]#[address]-56(Srinath) Reviewed 02/05/2012 12:[address] ABDOMEN W/O & W/DYE Reviewed 02/05/2012 12:[address] PELVIS W/O & W/DYE Reviewed 05/29/2012 12:00 AM DRAIN/INJ JOINT/BURSA W/O US Reviewed 05/29/2012 12:00 AM SYNVISC, Per 1 Mg (2ml) [facility] [address]-76 Reviewed 06/05/2012 12:00 AM DRAIN/INJ JOINT/BURSA W/O US Reviewed 06/05/2012 12:00 AM SYNVISC, Per 1 Mg (2ml) [facility] [address]-57 Reviewed 06/12/2012 12:00 AM DRAIN/INJ JOINT/BURSA W/O US Reviewed 06/12/2012 12:00 AM SYNVISC, Per 1 Mg (2ml) [facility] [address]-29 Reviewed 07/16/2012 12:00 AM Hepatobiliary ductal system imaging with functional assessment Reviewed 07/16/2012 12:00 AM Decadron 8 mg [facility]#[id number] Reviewed 07/16/2012 12:00 AM Depo-Medrol 80mg [facility]#61934692353 Reviewed 07/16/2012 12:00 AM COMPREHEN METABOLIC PANEL Reviewed 07/16/2012 12:00 AM LIPID PANEL Reviewed 07/16/2012 12:00 AM Flu Injection 3 Years And Above [facility]# [address]-05 RHC Reviewed 08/19/2012 12:00 AM METABOLIC PANEL TOTAL CA Reviewed 12/21/2009 12:[address] ABDOMEN W/O & W/DYE Reviewed 10/02/2012 12:00 AM CHEST X-RAY 2VW FRONTAL&LATL Reviewed 10/09/2012 12:00 AM Decadron 8 mg [facility]#[id number] Reviewed 10/09/2012 12:00 AM Depo-Medrol 80mg [facility]#17639830708 Reviewed 12/09/2012 12:00 AM CHEST X-RAY 2VW [...] (6ml) [facility] [address]-42 Reviewed 02/26/2013 12:[address] NECK SPINE W/O & W/DYE Reviewed 04/07/2013 12:00 AM INJECT TRIGGER POINTS 3/> Reviewed 04/07/2013 12:00 AM Kenalog per 10Mg [facility]#[address]-81(Srinath) Reviewed 07/21/2013 12:00 AM CHEST X-RAY 2VW FRONTAL&LATL Reviewed 07/21/2013 12:00 AM Decadron 8 mg [facility]# [address]-75 Reviewed 07/21/2013 12:00 AM Depo-Medrol 80 mg [facility]#[address]-79 Reviewed 07/21/2013 12:00 AM Rocephin 500 mg [facility]#8546-2755-36 Reviewed 09/22/2013 12:00 AM CHEST X-RAY 2VW FRONTAL&LATL Reviewed 10/29/2013 12:00 AM X-RAY EXAM OF ABDOMEN Reviewed 12/08/2013 12:00 AM THER/PROPH/DIAG INJ SC/IM Reviewed 12/08/2013 12:00 AM Decadron, Per 1 Mg [facility]# [address]-06 Reviewed 12/08/2013 12:00 AM Depo-Medrol, Per 80 Mg [facility]#2522-8211-01 Reviewed 12/08/2013 12:00 AM CHEST X-RAY 2VW [...] mg [facility]# [address]-96 Reviewed 01/05/2014 12:00 AM Depo-Medrol 80 mg [facility]#[address]-63 Reviewed 01/05/2014 12:00 AM Rocephin 1 gram [facility]#9280-1244-07 Reviewed 03/15/2010 12:00 AM PROTHROMBIN TIME Reviewed [...] Reviewed 09/28/2010 12:00 AM Kenalog per 10Mg [facility]#[address]-24(Srinath) Reviewed 05/05/2014 12:00 AM DRAIN/INJ JOINT/BURSA W/O US Reviewed 05/05/2014 12:00 AM SYNVISC-ONE, Per 1 Mg (6ml) [facility] [address]-63 Reviewed 05/06/2014 12:00 AM COMPREHEN METABOLIC PANEL [...] 500 mg [facility]#[address]-85 Reviewed 07/14/2014 12:00 AM Fluzone MEDICARE Only Reviewed 11/29/2010 12:00 AM INJECT TRIGGER POINTS 3/> Reviewed 11/29/2010 12:00 AM Kenalog per 10Mg [facility]#[address]-53(Srinath) Reviewed 07/14/2014 12:00 AM Decadron injection Reviewed [...] CVX Pneumococcal 07/09/2016 [facility] Prevnar 13 [id number] Intramuscular Right Deltoid 07/09/2016 07/28/2015 133 History [...] 10:17AM Bronchitis, Acute Aug 28 2016 8:10AM Payers Insurance Name Company Name Plan Name Plan Number Policy Number Policy Group Number Start Date Medicare Part A Medicare RHC [id number] N/A [employer] [place] [employer] [place] [id number] Wednesday, 2015 Medicare Part A Medicare - Lab/Xray [id number] N/A [employer] [place] State [place] [employer] [place] State Plan [id number] N/A [place] [employer] Medicare [place] [employer] Ins [phone] N/A [place] Medical Assistance [facility] Medical Assistance Prog [id number] N/A Medicare Part B Medicare Of [place] [id number] Friday, February 22, 2008 Medicare Part A Medicare Part A [id number] N/A [facility] - [facility] Plan [facility] RHC Comm [id number] Wednesday, September 23, 2015 History of Encounters [...] visit Melecio Wilkinson DO 01/19/2016 Office visit Meleico Wilkinson DO 12/20/2015 Office visit Melecio Wilkinson [...] Office visit Katty CRAIG 12/16/2014 [facility] Alfa Platt MD 12/14/2014 Voided Melecio Jaja DO 12/08/2014 Office visit Alfa Platt MD 12/08/2014 Office visit Melecio Wilkinson DO 12/07/2014 Nurse visit Riri Salazar MD 12/02/2014 [facility] Alfa Platt MD 12/02/2014 [facility] Magi Powers MD 11/29/2014 [facility] Magi Powers MD 11/29/2014 Voided Katty CRAIG 11/11/2014 Office visit 11/11/2014 Office visit Katty CRAIG 11/11/2014 Office visit Melecio Jaja DO 10/14/2014 Office visit Katty CRAIG 09/14/2014 Office visit Katty CRAIG 09/08/2014 [facility] Ama Barrios MD 09/07/2014 Office visit Melecio [...] visit Gorge Yo MD 12/09/2012 [facility] Ama Barrios MD 12/09/2012 Office visit Stephanie Richardson APRN 11/26/2012 Office visit Gorge Yo MD 10/30/2012 [facility] Gorge Yo MD 10/29/2012 Office visit Gorge [...] visit Gorge Yo MD 05/12/2012 [facility] DO 05/11/2012 [facility] DO 03/13/2012 Office visit Gorge oY MD 02/05/2012 Office visit Melecio Wilkinson DO [...] visit Melecio Wilkinson DO 02/06/2011 [facility] Gorge Yo MD 01/08/2011 Office visit Melceio Wilkinson DO 12/27/2010 Office visit Gorge Yo MD 11/29/2010 Office visit Gorge Yo MD 11/07/2010 Office visit Melecio Wilkinson DO 09/28/2010 Office visit Gorge Yo MD 09/05/2010 [facility] Gorge Yo MD 08/28/2010 Office visit Gorge Yo MD 08/07/2010 Office visit Janis Navarrete APRN 07/25/2010 Office visit Melecio Wilkinson DO 06/27/2010 Office visit Gorge Yo MD 06/14/2010 Office visit Melecio Wilkinson DO 06/06/2010 Laboratory Alfonso Camacho MD 06/01/2010 Office visit Melecio Wilkinson DO 04/17/2010 Office visit Melecio Wilkinson DO 04/06/2010 Office visit Gorge Yo MD 04/02/2010 [facility] Alfonso Camacho MD 03/31/2010 Laboratory Alfonso Camacho [...]
--- OUTSIDE RECORDS SUMMARY | 2018-01-22 17:25 | XMS REPORT ---
Author Author Melecio Wilkinson [facility] Address [address] [place] [id number] Care Team Providers Care Endoscopy Support Specialist Name Role Phone Melecio Wilkinson PCP [...] for 30 days Discontinued by Hospitalist at [place] Augmentin Oral Tablet 875-125 mg 11/07/2010 03/05/2011 [...] Date Medicare Part A Medicare Part A [id number] N/A [place] [employer] Medicare [place] [employer] Ins [id number] N/A [place] Medical Assistance [facility] Medical Assistance Pro [id number] N/A Medicare Part B Medicare Of [place] [id number] Friday, 2008 History of Encounters Visit Date Visit Type Provider 02/28/2015 Office visit Melecio Wilkinson DO 02/17/2015 Office visit Katty CRAIG 02/17/2015 Office visit Melecio Wilkinson DO 01/19/2015 Office visit Katty CRAIG 01/13/2015 Office visit Melecio Wilkinson DO 01/12/2015 Office visit Katty CRAIG 12/16/2014 [facility] Alfa Platt MD 12/14/2014 Voided Melecio Wilkinson DO 12/08/2014 Office visit Melecio Wilkinson DO 12/08/2014 Office visit Alfa Platt MD 12/07/2014 Nurse visit Riri Salazar MD 12/02/2014 [facility] Alfa Platt MD 12/02/2014 [facility] Magi Powers MD 11/29/2014 Voided Katty CRAIG 11/29/2014 [facility] Magi Powers MD 11/11/2014 Office [...] CRAIG 03/24/2014 Office visit Katty M. Ronny SUPERVISOR HISTOLOGY 02/24/2014 Office visit Katty Jefferson SUPERVISOR HISTOLOGY 01/05/2014 Office visit Melecio Wilkinson DO 12/23/2013 Office visit Melecio Wilkinson DO 12/23/2013 Office visit Katty Jefferson SUPERVISOR HISTOLOGY 12/18/2013 Office visit Janis Navarrete LIBRARIAN 12/08/2013 Office visit Janis Navarrete LIBRARIAN 11/25/2013 Office visit Katty Jefferson SUPERVISOR HISTOLOGY 10/29/2013 Office visit Melecio Wilkinson DO 09/22/2013 Office visit Janis Navarrete LIBRARIAN 07/28/2013 Office visit Katty Minerva Ronny SUPERVISOR HISTOLOGY 07/21/2013 Office visit Melecio Wilkinson DO 07/08/2013 Office visit Katty Jefferson SUPERVISOR HISTOLOGY 05/06/2013 Office visit Melecio Wilkinson DO 04/07/2013 Office visit Gorge Yo MD 02/26/2013 Office visit Melecio Wilkinson DO 01/29/2013 Office visit Gorge Yo MD 01/06/2013 Office visit Gorge Yo MD 12/09/2012 Office visit Stephanie Richardson LIBRARIAN 12/09/2012 [facility] Ama Barrios MD 11/26/2012 Office [...] 05/14/2012 Office visit Gorge Yo MD 05/12/2012 [facility] DO 05/11/2012 [facility] DO 03/13/2012 Office visit Gorge Yo [...] 03/05/2011 Office visit Melecio Wilkinson DO 02/06/2011 [facility] Gorge Yo MD 01/08/2011 Office [...]
--- OUTSIDE RECORDS SUMMARY | 2018-01-22 17:28 | XMS REPORT ---
Author Author Melecio Wilkinson [facility] Address [address] [place] [id number] Care Team Providers Care Copy Reader Name Role Phone Melecio Wilkinson PCP Unavailable [...] for 30 days Discontinued by Hospitalist at [place] Augmentin Oral Tablet 875-125 mg 11/07/2010 03/05/2011 [...] 1:41PM Lung cancer Jan 13 2015 1:41PM Payers Insurance Name Company Name Plan Name Plan Number Policy Number Policy Group Number Start Date Medicare Part A Medicare Part A [id number] N/A [place] [employer] [place] [facility] Ins [phone] N/A [place] Medical Assistance [facility] Medical Assistance Prog [id number] N/A Medicare Part B Medicare Of [place] [id number] Friday, 2008 History of Encounters Visit Date Visit Type Provider 01/13/2015 Office visit Melecio Wilkinson DO 01/12/2015 Office visit Katty CRAIG 12/16/2014 [facility] Alfa Platt MD 12/14/2014 Voided Melecio Wilkinson DO 12/08/2014 Office visit Melecio Wilkinson DO 12/08/2014 Office visit Alfa Platt MD 12/07/2014 Nurse visit Riri Salazar MD 12/02/2014 [facility] Alfa Platt MD 11/29/2014 Voided Katty CRAIG 11/29/2014 [facility] Magi Powers MD 11/11/2014 Office visit [...] Office visit Katty DURÁNP 01/05/2014 Office visit Meleico Jaja DO 12/23/2013 Office visit Melecio Wilkinson DO 12/23/2013 Office visit Katty CRAIG 12/18/2013 Office visit Janis Navarrete IT INVESTMENT/PORTFOLIO MANAGER 12/08/2013 Office visit Janis Navarrete IT INVESTMENT/PORTFOLIO MANAGER 11/25/2013 Office visit Katty CRAIG 10/29/2013 Office [...] Yo MD 12/09/2012 Office visit Stephanie Richardson IT INVESTMENT/PORTFOLIO MANAGER 12/09/2012 Hospital Ama Barrios MD 11/26/2012 Office visit Gorge Yo MD 10/30/2012 [facility] Gorge Yo MD 10/29/2012 Office visit [...] 05/14/2012 Office visit Gorge Yo MD 05/12/2012 [facility] DO 05/11/2012 [facility] DO 03/13/2012 Office visit Gorge Yo [...] 03/05/2011 Office visit Melecio Wilkinson DO 02/06/2011 [facility] Gorge Yo MD 01/08/2011 Office visit Melecio Wilkinson DO 12/27/2010 Office visit Gorge Yo MD 11/29/2010 Office visit Gorge Yo MD 11/07/2010 Office visit Melecio Wilkinson DO 09/28/2010 Office visit Gorge Yo MD 09/05/2010 [facility] Gorge Yo MD 08/28/2010 Office visit [...] 04/02/2010 Hospital Alfonso Camacho MD 03/31/2010 Laboratory Alfosno Camacho MD 03/31/2010 Laboratory Alfonso Camacho MD 03/31/2010 [facility] Alfonso Camacho MD 03/21/2010 Procedures Gorge [...]
--- OUTSIDE RECORDS SUMMARY | 2018-01-22 17:34 | XMS REPORT ---
Author Author Melecio Wilkinson [facility] Address [address] [place] [id number] Care Team Providers Care Safety Leader Name Role Phone Melecio Wilkinson PCP Unavailable [...] for 30 days Discontinued by Hospitalist at [place] niacin 500 mg oral tablet 10/10/2016 take [...] 07/11/2015 12:00 AM Kenalog, Per 10 Mg ND#3633-4901-03 Reviewed 12/07/2014 12:00 AM OFFICE/OUTPATIENT VISIT EST Reviewed 06/19/2011 12:00 AM DRAIN/INJ JOINT/BURSA W/O US Reviewed 06/19/2011 12:00 AM Kenalog 40 Mg Im-Nd#2963-4629-84 Reviewed 08/25/2015 12:00 AM OFFICE/OUTPATIENT VISIT EST Reviewed 08/23/2015 12:00 AM Decadron, Per 1 Mg ND# [address]-91 Reviewed 08/23/2015 12:00 AM Depo-Medrol, Per 80 Mg ND#[address]-32 Reviewed 09/07/2015 12:00 AM X-RAY EXAM L-S [...] 12:00 AM Decadron, Per 1 Mg ND# [address]-50 Reviewed 10/23/2015 12:00 AM Depo-Medrol, Per 80 Mg NDC#[address]-59 Reviewed 07/26/2011 12:00 AM X-RAY EXAM OF ABDOMEN Reviewed 11/21/2015 12:00 AM Orthopedics Consultation Reviewed 11/21/2015 12:00 AM Physical Therapy Consultation Reviewed 12/20/2015 12:00 AM EXTREMITY STUDY Reviewed 10/12/2011 12:00 AM EXTREMITY STUDY Reviewed 05/10/2016 12:00 AM CONTRAST X-RAY OF SHOULDER Reviewed 07/09/2016 12:00 AM PNEUMOCOCCAL VACC 13 RIP IM Reviewed 08/08/2016 12:00 AM Decadron, Per 1 Mg [facility]# [address]-12 Reviewed 08/08/2016 12:00 AM Depo-Medrol, Per 80 Mg [facility]#[address]-01 Reviewed 01/01/2012 12:00 AM AIRWAY INHALATION TREATMENT Reviewed 01/01/2012 12:00 AM Rocephin 1 gm [facility]#[address]-90 Reviewed 01/16/2012 12:00 AM DRAIN/INJ JOINT/BURSA W/O US Reviewed 01/16/2012 12:00 AM Kenalog per 10Mg [facility]#[address]-44(Srinath) Reviewed 09/26/2016 12:00 AM CHEST X-RAY 2VW [...] Mg (2ml) [facility] [address]-92 Reviewed 06/05/2012 12:00 AM DRAIN/INJ JOINT/BURSA W/O US Reviewed 06/05/2012 12:00 AM SYNVISC, Per 1 Mg (2ml) [facility] [address]-61 Reviewed 06/12/2012 12:00 AM DRAIN/INJ JOINT/BURSA W/O US Reviewed 06/12/2012 12:00 AM SYNVISC, Per 1 Mg (2ml) [facility] [address]-96 Reviewed 07/16/2012 12:00 AM Hepatobiliary ductal system imaging with functional assessment Reviewed 07/16/2012 12:00 AM Decadron 8 mg [facility]#[id number] Reviewed 07/16/2012 12:00 AM Depo-Medrol 80mg [facility]#[id number] Reviewed 07/16/2012 12:00 AM COMPREHEN METABOLIC PANEL Reviewed 07/16/2012 12:00 AM LIPID PANEL Reviewed 07/16/2012 12:00 AM Flu Injection 3 Years And Above [facility]# [address]-05 RHC Reviewed 08/19/2012 12:00 AM METABOLIC PANEL TOTAL CA Reviewed 12/21/2009 12:[address] ABDOMEN W/O & W/DYE Reviewed 10/02/2012 12:00 AM CHEST X-RAY 2VW FRONTAL&LATL Reviewed 10/09/2012 12:00 AM Decadron 8 mg [facility]#74426906060 Reviewed 10/09/2012 12:00 AM Depo-Medrol 80mg [facility]#35703133160 Reviewed 12/09/2012 12:00 AM CHEST X-RAY 2VW [...] Mg (6ml) [facility] [address]-72 Reviewed 02/26/2013 12:00 AM Physical Therapy Reviewed 02/26/2013 12:[address] NECK SPINE W/O & W/DYE Reviewed 04/07/2013 12:00 AM INJECT TRIGGER POINTS 3/> Reviewed 04/07/2013 12:00 AM Kenalog per 10Mg [facility]#[address]-86(Srinath) Reviewed 07/21/2013 12:00 AM CHEST X-RAY 2VW FRONTAL&LATL Reviewed 07/21/2013 12:00 AM Decadron 8 mg [facility]# [address]-56 Reviewed 07/21/2013 12:00 AM Depo-Medrol 80 mg [facility]#[address]-19 Reviewed 07/21/2013 12:00 AM Rocephin 500 mg [facility]#5862-3727-02 Reviewed 09/22/2013 12:00 AM CHEST X-RAY 2VW FRONTAL&LATL Reviewed 10/29/2013 12:00 AM X-RAY EXAM OF ABDOMEN Reviewed 12/08/2013 12:00 AM THER/PROPH/DIAG INJ SC/IM Reviewed 12/08/2013 12:00 AM Decadron, Per 1 Mg [facility]# [address]-88 Reviewed 12/08/2013 12:00 AM Depo-Medrol, Per 80 Mg [facility]#3380-3117-74 Reviewed 12/08/2013 12:00 AM CHEST X-RAY 2VW [...] 8 mg [facility]# [address]-14 Reviewed 01/05/2014 12:00 AM Depo-Medrol 80 mg [facility]#[address]-84 Reviewed 01/05/2014 12:00 AM Rocephin 1 gram [facility]#1222-[address]20-74 Reviewed 03/15/2010 12:00 AM PROTHROMBIN TIME Reviewed [...] per 10Mg [facility]#[address]-96(Srinath) Reviewed 05/05/2014 12:00 AM DRAIN/INJ JOINT/BURSA W/O US Reviewed 05/05/2014 12:00 AM SYNVISC-ONE, Per 1 Mg (6ml) [facility] [address]-05 Reviewed 05/06/2014 12:00 AM COMPREHEN METABOLIC PANEL [...] Rocephin 500 mg [facility]#[address]-92 Reviewed 07/14/2014 12:00 AM Fluzone MEDICARE Only Reviewed 11/29/2010 12:00 AM INJECT TRIGGER POINTS 3/> Reviewed 11/29/2010 12:00 AM Kenalog per 10Mg [facility]#[address]-48(Srinath) Reviewed 07/14/2014 12:00 AM Decadron injection Reviewed [...] CVX Pneumococcal 07/09/2016 Emily [facility] Prevnar 13 [id number] Intramuscular Right Deltoid 07/09/2016 07/28/2015 133 History [...] Group Number Start Date Medicare RH Medicare [facility] [id number] N/A [employer] [place] State Plan [employer] [place] State Plan [id number] N/A [employer] [place] [employer] Medicare [employer] [place] [employer] Ins [phone] N/A [place] [facility] [place] Prog [id number] N/A Medicare Part B Medicare Of [place] [id number] Friday, 2008 Medicare Part A Medicare Part A [id number] N/A [facility] - RHC - Community Plan [facility] RHC Comm [id number] Wednesday, 2015 [employer] - [place]HC - [place] State Plan [employer] - RHC [place] State Plan [id number] Wednesday, 2015 Medicare Part A Medicare - Lab/Xray [id number] N/A History of Encounters Visit Date Visit [...] DO 01/12/2015 Office visit Katty CRAIG 12/16/2014 [facility] Alfa Platt MD 12/14/2014 Voided Melecio Jaja DO 12/08/2014 Office visit Alfa Platt MD 12/08/2014 Office visit Melecio Jaja DO 12/07/2014 Nurse visit Riri Salazar MD 12/02/2014 [facility] Alfa Platt MD 12/02/2014 [facility] [...] CRAIG 07/19/2014 Office visit Katty M. Ronny WE[place]ER [place] 07/14/2014 Office visit Melecio Jaja DO 06/21/2014 Office visit Katty Jefferson [employer] [place] 05/20/2014 Office visit Melecio Jaja DO 05/14/2014 Office visit Melecio [place] DO 05/05/2014 Office visit Katty Jefferson [employer] [place] 04/26/2014 Office visit Katty M. Ronny WE[employer] [place] 03/24/2014 Office visit Katty Minerva Ronny WE[employer] [place] 02/24/2014 Office visit Katty Minerva Ronny WE[employer] [place] 01/05/2014 Office visit Melecio Jaja DO 12/23/2013 Office visit Kattyalton Jefferson WE[employer] [place] 12/23/2013 Office visit Melecio Jaja DO 12/18/2013 Office visit Janis Landon CHILD NURSE 12/08/2013 Office visit Janis Landon CHILD NURSE 11/25/2013 Office visit Katty MisaelNeville Jefferson WE[employer] [place] 10/29/2013 Office visit Melecio Wilkinson DO 09/22/2013 Office visit Janis Navarrete CHILD NURSE 07/28/2013 Office visit Katty DURÁNP 07/21/2013 Office visit Melecio Jaja DO 07/08/2013 Office visit Katty DURÁNP 05/06/2013 Office visit Melecio Wilkinson DO 04/07/2013 Office visit Gorge Yo MD 02/26/2013 Office visit Melecio Wilkinson DO 01/29/2013 Office visit Gorge Yo MD 01/06/2013 Office visit Gorge Yo MD 12/09/2012 [facility] Ama Barrios MD 12/09/2012 Office visit Stephanie Richardson CHILD NURSE 11/26/2012 Office visit Gorge Yo MD 10/30/2012 [...] Office visit Gorge Yo MD 05/12/2012 [facility] DO 05/11/2012 [facility] DO 03/13/2012 Office visit Gorge [...] 03/05/2011 Office visit Melecio Wilkinson DO 02/06/2011 [facility] Gorge Yo MD 01/08/2011 Office visit Melecio Wilkinson DO 12/27/2010 Office visit Gorge Yo MD 11/29/2010 Office visit Gorge Yo MD 11/07/2010 Office visit Melecio Wilkinson DO 09/28/2010 Office visit Gorge Yo MD 09/05/2010 [facility] Gorge Yo MD 08/28/2010 Office visit [...]
--- OUTSIDE RECORDS SUMMARY | 2018-01-22 17:41 | XMS REPORT ---
Author Author Melecio Wilkinson [facility] Address [address] [place], [place] [id number] Care Team Providers Care Neuro Urologist Name Role Phone Melecio Wilkinson PCP Unavailable [...] for 30 days Discontinued by Hospitalist at [place] niacin 500 mg oral tablet 10/10/2016 take [...] 07/11/2015 12:00 AM Kenalog, Per 10 Mg [facility]#1903-6976-12 Reviewed 12/07/2014 12:00 AM OFFICE/OUTPATIENT VISIT EST Reviewed 06/19/2011 12:00 AM DRAIN/INJ JOINT/BURSA W/O US Reviewed 06/19/2011 12:00 AM Kenalog 40 Mg [facility]#8431-4889-40 Reviewed 08/25/2015 12:00 AM OFFICE/OUTPATIENT VISIT EST Reviewed 08/23/2015 12:00 AM Decadron, Per 1 Mg [facility]# [address]-76 Reviewed 08/23/2015 12:00 AM Depo-Medrol, Per 80 Mg [facility]#[address]-78 Reviewed 09/07/2015 12:00 AM X-RAY EXAM L-S [...] 10/23/2015 12:00 AM Decadron, Per 1 Mg [facility]# [address]-24 Reviewed 10/23/2015 12:00 AM Depo-Medrol, Per 80 Mg [facility]#[address]-22 Reviewed 07/26/2011 12:00 AM X-RAY EXAM OF ABDOMEN Reviewed 11/21/2015 12:00 AM Orthopedics Consultation Reviewed 11/21/2015 12:00 AM Physical Therapy Consultation Reviewed 12/20/2015 12:00 AM EXTREMITY STUDY Reviewed 10/12/2011 12:00 AM EXTREMITY STUDY Reviewed 05/10/2016 12:00 AM CONTRAST X-RAY OF SHOULDER Reviewed 07/09/2016 12:00 AM PNEUMOCOCCAL VACC 13 RIP IM Reviewed 08/08/2016 12:00 AM Decadron, Per 1 Mg [facility]# [address]-66 Reviewed 08/08/2016 12:00 AM Depo-Medrol, Per 80 Mg [facility]#[address]-89 Reviewed 01/01/2012 12:00 AM AIRWAY INHALATION TREATMENT Reviewed 01/01/2012 12:00 AM Rocephin 1 gm [facility]#[address]-04 Reviewed 01/16/2012 12:00 AM DRAIN/INJ JOINT/BURSA W/O US Reviewed 01/16/2012 12:00 AM Kenalog per 10Mg [facility]#[address]-80(Srinath) Reviewed 09/26/2016 12:00 AM CHEST X-RAY 2VW [...] SYNVISC, Per 1 Mg (2ml) [facility] [address]-20 Reviewed 06/05/2012 12:00 AM DRAIN/INJ JOINT/BURSA W/O US Reviewed 06/05/2012 12:00 AM SYNVISC, Per 1 Mg (2ml) [facility] [address]-55 Reviewed 06/12/2012 12:00 AM DRAIN/INJ JOINT/BURSA W/O US Reviewed 06/12/2012 12:00 AM SYNVISC, Per 1 Mg (2ml) [facility] [address]-04 Reviewed 07/16/2012 12:00 AM Hepatobiliary ductal system imaging with functional assessment Reviewed 07/16/2012 12:00 AM Decadron 8 mg [facility]#78990021091 Reviewed 07/16/2012 12:00 AM Depo-Medrol 80mg [facility]#34118451800 Reviewed 07/16/2012 12:00 AM COMPREHEN METABOLIC PANEL Reviewed 07/16/2012 12:00 AM LIPID PANEL Reviewed 07/16/2012 12:00 AM Flu Injection 3 Years And Above [facility]# [address]-84 RHC Reviewed 08/19/2012 12:00 AM METABOLIC PANEL TOTAL CA Reviewed 12/21/2009 12:[address] ABDOMEN W/O & W/DYE Reviewed 10/02/2012 12:00 AM CHEST X-RAY 2VW FRONTAL&LATL Reviewed 10/09/2012 12:00 AM Decadron 8 mg [facility]#[id number] Reviewed 10/09/2012 12:00 AM Depo-Medrol 80mg [facility]#54377478564 Reviewed 12/09/2012 12:00 AM CHEST X-RAY 2VW [...] SYNVISC-ONE, Per 1 Mg (6ml) [facility] [address]-84 Reviewed 02/26/2013 12:00 AM Physical Therapy Reviewed 02/26/2013 12:[address] NECK SPINE W/O & W/DYE Reviewed 04/07/2013 12:00 AM INJECT TRIGGER POINTS 3/> Reviewed 04/07/2013 12:00 AM Kenalog per 10Mg [facility] [place]#[address]-03(Srinath) Reviewed 07/21/2013 12:00 AM CHEST X-RAY 2VW FRONTAL&LATL Reviewed 07/21/2013 12:00 AM Decadron 8 mg [facility]# [address]-59 Reviewed 07/21/2013 12:00 AM Depo-Medrol 80 mg [facility]#[address]-83 Reviewed 07/21/2013 12:00 AM Rocephin 500 mg [facility]#3935-9049-49 Reviewed 09/22/2013 12:00 AM CHEST X-RAY 2VW FRONTAL&LATL Reviewed 10/29/2013 12:00 AM X-RAY EXAM OF ABDOMEN Reviewed 12/08/2013 12:00 AM THER/PROPH/DIAG INJ SC/IM Reviewed 12/08/2013 12:00 AM Decadron, Per 1 Mg [facility]# [address]-27 Reviewed 12/08/2013 12:00 AM Depo-Medrol, Per 80 Mg [facility]#5475-6513-37 Reviewed 12/08/2013 12:00 AM CHEST X-RAY 2VW [...] Reviewed 01/05/2014 12:00 AM Decadron 8 mg [facility]# [address]-16 Reviewed 01/05/2014 12:00 AM Depo-Medrol 80 mg [facility]#[address]-18 Reviewed 01/05/2014 12:00 AM Rocephin 1 gram [facility]#2690-4603-95 Reviewed 03/15/2010 12:00 AM PROTHROMBIN TIME Reviewed [...] per 10Mg [facility] [place]#[address]-45(Srinath) Reviewed 05/05/2014 12:00 AM DRAIN/INJ JOINT/BURSA W/O US Reviewed 05/05/2014 12:00 AM SYNVISC-ONE, Per 1 Mg (6ml) [facility] [address]-14 Reviewed 05/06/2014 12:00 AM COMPREHEN METABOLIC PANEL [...] 11/07/2010 12:00 AM Rocephin 500 mg [facility]#[address]-21 Reviewed 07/14/2014 12:00 AM Fluzone MEDICARE Only Reviewed 11/29/2010 12:00 AM INJECT TRIGGER POINTS 3/> Reviewed 11/29/2010 12:00 AM Kenalog per 10Mg [facility] [place]#[address]-15(Srinath) Reviewed 07/14/2014 12:00 AM Decadron injection Reviewed [...] CVX Pneumococcal 07/09/2016 [facility] Prevnar 13 [id number] Intramuscular Right Deltoid 07/09/2016 07/28/2015 133 History [...] Number Start Date Medicare RHC Medicare RHC [id number] N/A [employer] [place] State Plan [facility] State Plan [id number] N/A [place] [employer] Medicare [place] [employer] Ins [phone] N/A [place] Medical Assistance [facility] Medical Assistance Prog [id number] N/A Medicare Part B Medicare Of [place] [id number] Friday, 2008 Medicare Part A Medicare Part A [id number] N/A [facility] - RHC - [facility] Plan [facility] RHC Comm [id number] Wednesday, 2015 [employer] - RHC - [place] State [facility] Amer[employer] - RHC [facility] Plan [id number] Wednesday, 2015 Medicare Part A Medicare - Lab/Xray [id number] N/A History of Encounters Visit Date Visit Type Provider 02/22/2017 Office visit Melecio Wilkinson DO 02/05/2017 Office visit Melecio Wilkinson DO 2017 [facility] Rasta Mckeon MD 01/09/2017 Office visit Melecio Wilkinson DO 01/01/2017 [facility] Seth Devlin DO 12/31/2016 [facility] Rasta Mckeon MD 12/21/2016 Office visit Melecio Wilkinson DO 11/20/2016 Office visit Melecio Wilkinson DO 11/05/2016 Office visit Melecio Jaja DO 10/23/2016 Office visit Melecio Jaja DO 10/10/2016 Office visit Melecio Jaja DO 09/26/2016 Office visit Melecio Jaja DO 08/28/2016 Office visit Melecio Jaja DO 08/08/2016 Office visit Melecio Jaaj DO 07/09/2016 Office visit Melecio Jaja DO [...] CRAIG 09/14/2014 Office visit Katty CRAIG 09/08/2014 [facility] Ama Barrios MD 09/07/2014 Office [...] Navarrete APRN 12/08/2013 Office visit Janis Navarrete BRAND COMMUNICATIONS MANAGER 11/25/2013 Office visit Katty Jefferson SIMULATION SOFTWARE ENGINEER 10/29/2013 Office visit Melecio Wilkinson DO 09/22/2013 Office visit Janis Navarrete BRAND COMMUNICATIONS MANAGER 07/28/2013 Office visit Katty [place] Ronny SIMULATION SOFTWARE ENGINEER 07/21/2013 Office visit Melecio Wilkinson DO 07/08/2013 Office visit Katty CRAIG 05/06/2013 Office visit Melecio Wilkinson DO 04/07/2013 Office visit Gorge Yo MD 02/26/2013 Office visit Melecio Wilkinson DO 01/29/2013 Office visit Gorge Yo MD 01/06/2013 Office visit Gorge Yo MD 12/09/2012 [facility] Ama Barrios MD 12/09/2012 Office visit Stephanie Richardson BRAND COMMUNICATIONS MANAGER 11/26/2012 Office visit Gorge Yo MD [...] visit Gorge Yo MD 03/05/2011 Office visit Meelcio Wilkinson DO 02/06/2011 [facility] [...] 04/06/2010 Office visit Gorge Yo MD 04/02/2010 [facility] Alfonso Camacho MD 03/31/2010 Laboratory [...]
--- OUTSIDE RECORDS SUMMARY | 2018-01-22 17:46 | XMS REPORT ---
Author Author Melecio Wilkinson [facility] Address [address] [place], [place] [id number] Care Team Providers Care Foreman/Project Manager Name Role Phone Melecio Wilkinson PCP [...] for 30 days Discontinued by Hospitalist at [place] niacin 500 mg oral tablet 10/10/2016 take [...] BY MOUTH DAILY ON HOLD - DR ARAZIA betamethasone dipropionate 0.05 % topical lotion 03/28/2015 [...] Per 10 Mg [facility]#2784-8910-49 Reviewed 12/07/2014 12:00 AM OFFICE/OUTPATIENT VISIT EST Reviewed 06/19/2011 12:00 AM DRAIN/INJ JOINT/BURSA W/O US Reviewed 06/19/2011 12:00 AM Kenalog 40 Mg Im-Nd#7497-1194-96 Reviewed 08/25/2015 12:00 AM OFFICE/OUTPATIENT VISIT EST Reviewed 08/23/2015 12:00 AM Decadron, Per 1 Mg [facility]# [address]-19 Reviewed 08/23/2015 12:00 AM Depo-Medrol, Per 80 Mg [facility]#[address]-30 Reviewed 09/07/2015 12:00 AM X-RAY EXAM L-S [...] 1 Mg [facility]# [address]-40 Reviewed 10/23/2015 12:00 AM Depo-Medrol, Per 80 Mg [facility]#[address]-78 Reviewed 07/26/2011 12:00 AM X-RAY EXAM OF ABDOMEN Reviewed 11/21/2015 12:00 AM Orthopedics Consultation Reviewed 11/21/2015 12:00 AM Physical Therapy Consultation Reviewed 12/20/2015 12:00 AM EXTREMITY STUDY Reviewed 10/12/2011 12:00 AM EXTREMITY STUDY Reviewed 05/10/2016 12:00 AM CONTRAST X-RAY OF SHOULDER Reviewed 07/09/2016 12:00 AM PNEUMOCOCCAL VACC 13 RIP IM Reviewed 08/08/2016 12:00 AM Decadron, Per 1 Mg [facility]# [address]-48 Reviewed 08/08/2016 12:00 AM Depo-Medrol, Per 80 Mg [facility]#[address]-89 Reviewed 01/01/2012 12:00 AM AIRWAY INHALATION TREATMENT Reviewed 01/01/2012 12:00 AM Rocephin 1 gm [facility]#[address]-53 Reviewed 01/16/2012 12:00 AM DRAIN/INJ JOINT/BURSA W/O US Reviewed 01/16/2012 12:00 AM Kenalog per 10Mg [facility]#[address]-13(Srinath) Reviewed 09/26/2016 12:00 AM CHEST X-RAY 2VW [...] Mg (2ml) [facility] [address]-81 Reviewed 06/05/2012 12:00 AM DRAIN/INJ JOINT/BURSA W/O US Reviewed 06/05/2012 12:00 AM SYNVISC, Per 1 Mg (2ml) [facility] [address]-98 Reviewed 06/12/2012 12:00 AM DRAIN/INJ JOINT/BURSA W/O US Reviewed 06/12/2012 12:00 AM SYNVISC, Per 1 Mg (2ml) [facility] [address]-93 Reviewed 06/06/2017 12:00 AM Decadron 4mg Injection Reviewed 06/06/2017 12:00 AM Depo-Medrol 40mg Injection Reviewed 06/06/2017 12:[address] ABD & PELV 1/> REGNS Reviewed 07/16/2012 12:00 AM Hepatobiliary ductal system imaging with functional assessment Reviewed 07/16/2012 12:00 AM Decadron 8 mg [facility]#[id number] Reviewed 07/16/2012 12:00 AM Depo-Medrol 80mg [facility]#54315793291 Reviewed 07/16/2012 12:00 AM COMPREHEN METABOLIC PANEL Reviewed 07/16/2012 12:00 AM LIPID PANEL Reviewed 07/16/2012 12:00 AM Flu Injection 3 Years And Above [facility]# [address]-01 RHC Reviewed 08/19/2012 12:00 AM METABOLIC PANEL TOTAL CA Reviewed 12/21/2009 12:[address] ABDOMEN W/O & W/DYE Reviewed 10/02/2012 12:00 AM CHEST X-RAY 2VW FRONTAL&LATL Reviewed 10/09/2012 12:00 AM Decadron 8 mg [facility]#09319108442 Reviewed 10/09/2012 12:00 AM Depo-Medrol 80mg [facility]#03613823108 Reviewed 12/09/2012 12:00 AM CHEST X-RAY 2VW [...] Mg (6ml) [facility] [address]-97 Reviewed 02/26/2013 12:00 AM Physical Therapy Reviewed 02/26/2013 12:[address] NECK SPINE W/O & W/DYE Reviewed 04/07/2013 12:00 AM INJECT TRIGGER POINTS 3/> Reviewed 04/07/2013 12:00 AM Kenalog per 10Mg [facility]#[address]-70(Srinath) Reviewed 07/21/2013 12:00 AM CHEST X-RAY 2VW FRONTAL&LATL Reviewed 07/21/2013 12:00 AM Decadron 8 mg [facility]# [address]-19 Reviewed 07/21/2013 12:00 AM Depo-Medrol 80 mg [facility]#[address]-71 Reviewed 07/21/2013 12:00 AM Rocephin 500 mg [facility]#9472-3981-10 Reviewed 09/22/2013 12:00 AM CHEST X-RAY 2VW FRONTAL&LATL Reviewed 10/29/2013 12:00 AM X-RAY EXAM OF ABDOMEN Reviewed 12/08/2013 12:00 AM THER/PROPH/DIAG INJ SC/IM Reviewed 12/08/2013 12:00 AM Decadron, Per 1 Mg [facility]# [address]-16 Reviewed 12/08/2013 12:00 AM Depo-Medrol, Per 80 Mg [facility]#2749-0215-99 Reviewed 12/08/2013 12:00 AM CHEST X-RAY 2VW [...] 8 mg [facility]# [address]-38 Reviewed 01/05/2014 12:00 AM Depo-Medrol 80 mg [facility]#[address]-76 Reviewed 01/05/2014 12:00 AM Rocephin 1 gram [facility]#3666-0456-21 Reviewed 03/15/2010 12:00 AM PROTHROMBIN TIME Reviewed [...] Kenalog per 10Mg [facility]#[address]-75(Srinath) Reviewed 05/05/2014 12:00 AM DRAIN/INJ JOINT/BURSA W/O US Reviewed 05/05/2014 12:00 AM SYNVISC-ONE, Per 1 Mg (6ml) [facility] [address]-70 Reviewed 05/06/2014 12:00 AM COMPREHEN METABOLIC PANEL [...] Rocephin 500 mg [facility]#[address]-77 Reviewed 07/14/2014 12:00 AM Fluzone MEDICARE Only Reviewed 11/29/2010 12:00 AM INJECT TRIGGER POINTS 3/> Reviewed 11/29/2010 12:00 AM Kenalog per 10Mg [facility]#[address]-68(Srinath) Reviewed 07/14/2014 12:00 AM Decadron injection Reviewed [...] CVX Pneumococcal 07/09/2016 [facility] Prevnar 13 [id number] Intramuscular Right Deltoid 07/09/2016 07/28/2015 133 History [...] Number Start Date Medicare RHC Medicare RHC [id number] N/A [employer] [place] [employer] [place] [id number] N/A [employer] [place] [employer] [place] [employer] Ins [phone] N/A [place] [facility] Medical Assistance Prog [id number] N/A Medicare Part B Medicare Of [place] [id number] Friday, 2008 Medicare Part A Medicare Part A [id number] N/A [facility] - RHC - [facility] Plan [facility] RHC Comm [id number] Wednesday, 2015 [employer] - RHC - [place] State Plan [employer] - RHC [place] State Plan [id number] Wednesday, 2015 Medicare Part A Medicare - Lab/Xray [id number] N/A History of Encounters Visit Date Visit Type Provider 06/06/2017 Office visit Melecio Wilkinson DO 04/03/2017 Office visit Melecio Wilkinson DO 03/28/2017 Office visit Melecio Wilkinson DO 03/11/2017 Office visit Melecio Wilkinson DO 03/05/2017 Hospital Ama Barrios MD 02/22/2017 Office visit Melecio Wilkinson DO 02/05/2017 Office visit Melecio Wilkinson DO 2017 [facility] Rasta Mckeon MD 2017 Hospital Ama Barrios MD 01/09/2017 Office visit Melecio Wilkinson DO 01/01/2017 [facility] Seth Devlin DO 12/31/2016 [facility] Rasta Mckeon MD 12/31/2016 [facility] Ama Barrios MD 12/21/2016 Office [...] Navarrete APRN 12/08/2013 Office visit Janis Navarrete DYE LAB TECHNICIAN 11/25/2013 Office visit Katty Jefferson STEAM GIGGER 10/29/2013 Office visit Melecio Wilkinson DO 09/22/2013 Office visit aJnis Navarrete DYE LAB TECHNICIAN 07/28/2013 Office visit Kattyatlon Jefferson STEAM GIGGER 07/21/2013 Office visit Melecio Wilkinson DO 07/08/2013 Office visit Katty [place] DURÁNP 05/06/2013 Office visit Melecio Wilkinson DO 04/07/2013 Office visit Gorge Yo MD 02/26/2013 Office visit Melecio Wilkinson DO 01/29/2013 Office visit Gorge Yo MD 01/06/2013 Office visit Gorge Yo MD 12/09/2012 [facility] Ama Barrios MD 12/09/2012 Office visit Stephanie Richardson DYE LAB TECHNICIAN 11/26/2012 Office visit Gorge Yo MD 10/30/2012 [...] 05/14/2012 Office visit Gorge Yo MD 05/12/2012 [facility] DO 05/11/2012 [facility] DO 03/13/2012 Office visit Gorge Yo MD 02/05/2012 Office visit Melecio Wilkinson DO 01/31/2012 Office visit Gorge Yo MD 01/16/2012 Office visit Gorge Yo MD 01/01/2012 Office visit Melecio Wilkinson DO 11/16/2011 Office visit Gorge Yo MD 10/05/2011 Office visit Gorge Yo MD 10/01/2011 Office visit Janis Navarrete DYE LAB TECHNICIAN 09/06/2011 Office visit Gorge Yo MD 07/26/2011 [...] Office visit Gorge Yo MD 04/02/2010 Hospital Alfonos Camacho MD 03/31/2010 Laboratory Alfonso Camacho [...]
--- OUTSIDE RECORDS SUMMARY | 2018-01-22 17:50 | XMS REPORT ---
Author Author Katty Jefferson [facility] Address [address] [place] [id number] Care Team Providers Care Public Health Doctor Name Role Phone Katty Jefferson PCP Allergies [...] for 30 days Discontinued by Hospitalist at [place] Augmentin 875-125 mg oral tablet 11/07/2010 03/05/2011 [...] 40 Mg Im-[facility]#7574-4917-87 Reviewed 11/03/2009 12:00 AM PROTHROMBIN TIME Reviewed 07/26/2011 12:00 AM X-RAY EXAM OF ABDOMEN Reviewed 10/12/2011 12:00 AM EXTREMITY STUDY Reviewed 01/01/2012 12:00 AM Rocephin 1 gm [facility]#[address]-73 Reviewed 01/16/2012 12:00 AM DRAIN/INJ JOINT/BURSA W/O US Reviewed 01/16/2012 12:00 AM Kenalog per 10Mg Im-[facility]#[address]-79(Srinath) Reviewed 02/05/2012 12:[address] ABDOMEN W/O & W/DYE Reviewed 02/05/2012 12:[address] PELVIS W/O & W/DYE Reviewed 05/29/2012 12:00 AM DRAIN/INJ JOINT/BURSA W/O US Reviewed 05/29/2012 12:00 AM SYNVISC, Per 1 Mg (2ml) [facility] [address]-08 Reviewed 06/05/2012 12:00 AM DRAIN/INJ JOINT/BURSA W/O US Reviewed 06/05/2012 12:00 AM SYNVISC, Per 1 Mg (2ml) [facility] [address]-95 Reviewed 06/12/2012 12:00 AM DRAIN/INJ JOINT/BURSA W/O US Reviewed 06/12/2012 12:00 AM SYNVISC, Per 1 Mg (2ml) [facility] [address]-85 Reviewed 07/16/2012 12:00 AM Hepatobiliary ductal system imaging with functional assessment Reviewed 07/16/2012 12:00 AM Decadron 8 mg [facility]#49054283630 Reviewed 07/16/2012 12:00 AM Depo-Medrol 80mg [facility]#95534357774 Reviewed 07/16/2012 12:00 AM COMPREHEN METABOLIC PANEL Reviewed 07/16/2012 12:00 AM LIPID PANEL Reviewed 07/16/2012 12:00 AM Flu Injection 3 Years And Above [facility]# [address]-83 RHC Reviewed 08/19/2012 12:00 AM METABOLIC PANEL TOTAL CA Reviewed 12/21/2009 12:[address] ABDOMEN W/O & W/DYE Reviewed 10/02/2012 12:00 AM CHEST X-RAY 2VW FRONTAL&LATL Reviewed 10/09/2012 12:00 AM Decadron 8 mg [facility]#77873526204 Reviewed 10/09/2012 12:00 AM Depo-Medrol 80mg [facility]#02579390522 Reviewed 12/09/2012 12:00 AM CHEST X-RAY 2VW [...] AM SYNVISC-ONE, Per 1 Mg (6ml) [facility] [address]-70 Reviewed 02/26/2013 12:[address] NECK SPINE W/O & W/DYE Reviewed 04/07/2013 12:00 AM INJECT TRIGGER POINTS 3/> Reviewed 04/07/2013 12:00 AM Kenalog per 10Mg Im-[facility]#[address]-45(Srinath) Reviewed 07/21/2013 12:00 AM CHEST X-RAY 2VW FRONTAL&LATL Reviewed 07/21/2013 12:00 AM Decadron 8 mg [place]# [address]-93 Reviewed 07/21/2013 12:00 AM Depo-Medrol 80 mg [facility]#[address]-38 Reviewed 07/21/2013 12:00 AM Rocephin 500 mg ND#5142-0169-98 Reviewed 09/22/2013 12:00 AM CHEST X-RAY 2VW FRONTAL&LATL Returned 10/29/2013 12:00 AM X-RAY EXAM OF ABDOMEN Reviewed 12/08/2013 12:00 AM THER/PROPH/DIAG INJ SC/IM Reviewed 12/08/2013 12:00 AM Decadron, Per 1 Mg [facility]# [address]-20 Reviewed 12/08/2013 12:00 AM Depo-Medrol, Per 80 Mg ND#9855-3405-55 Reviewed 12/08/2013 12:00 AM CHEST X-RAY 2VW [...] 01/05/2014 12:00 AM Decadron 8 mg [facility]# [address]-67 Reviewed 01/05/2014 12:00 AM Depo-Medrol 80 mg [facility]#[address]-01 Reviewed 01/05/2014 12:00 AM Rocephin 1 gram ND#2111-1694-63 Reviewed 03/15/2010 12:00 AM PROTHROMBIN TIME Reviewed [...] per 10Mg [facility]#[address]-36(Srinath) Reviewed 05/05/2014 12:00 AM DRAIN/INJ JOINT/BURSA W/O US Reviewed 05/05/2014 12:00 AM SYNVISC-ONE, Per 1 Mg (6ml) [facility] [address]-47 Reviewed 05/06/2014 12:00 AM COMPREHEN METABOLIC PANEL [...] 11/07/2010 12:00 AM Rocephin 500 mg [facility]#[address]-17 Reviewed 07/14/2014 12:00 AM Fluzone MEDICARE Only Reviewed 11/29/2010 12:00 AM INJECT TRIGGER POINTS 3/> Reviewed 11/29/2010 12:00 AM Kenalog per 10Mg Im-[facility]#[address]-31(Srinath) Reviewed 07/14/2014 12:00 AM Decadron injection Reviewed [...] Date Medicare Part A Medicare Part A [id number] N/A [employer] [place] [employer] [facility] Ins [id number] N/A [place] Medical Assistance [facility] Medical Assistance Prog [id number] N/A Medicare Part B Medicare Of [place] [id number] Friday, 2008 History of Encounters Visit Date Visit Type Provider 07/11/2015 Office visit Katty CRAIG 07/06/2015 Office visit Katty CRAIG 06/27/2015 Office visit Melecio Wilkinson DO 06/20/2015 Office visit Melecio Cruzte DO 06/15/2015 Office visit Katty CRAIG 06/02/2015 Office visit Meelcio Jaja DO 05/16/2015 Office visit Katty CRAIG [...] visit Melecio Jaja DO 02/17/2015 Office visit Katyt CRAIG 01/19/2015 Office visit Katty CRAIG 01/13/2015 Office visit Melecio Cruzte DO 01/12/2015 Office visit Katty CRAIG 12/16/2014 [facility] Alfa Platt MD 12/14/2014 Voided Melecio [place] DO 12/08/2014 Office visit Alfa Platt MD 12/08/2014 Office visit Melecio Jaja DO 12/07/2014 Nurse visit Riri Salazar MD 12/02/2014 [facility] Alfa Platt MD 12/02/2014 [facility] Powers [facility] Voided Katty [...] Jaja DO 05/05/2014 Office visit Katty Jefferson CPC 04/26/2014 Office visit Katty Jefferson CPC 03/24/2014 Office visit Katty Jefferson CPC 02/24/2014 Office visit Katty Jefferson CPC 01/05/2014 Office visit Melecio Jaja DO 12/23/2013 Office visit Katty Jefferson CPC 12/23/2013 Office visit Melecio Jaja DO 12/18/2013 Office visit Janis Navarrete CANCER PROGRAM CONSULTANT 12/08/2013 Office visit Janis Navarrete CANCER PROGRAM CONSULTANT 11/25/2013 Office visit Katty Jefferson CPC 10/29/2013 Office visit Melecio Wilkinson DO 09/22/2013 Office visit Janis Navarrete CANCER PROGRAM CONSULTANT 07/28/2013 Office visit Katty Jefferson CPC 07/21/2013 Office visit Melecio Wilkinson DO 07/08/2013 Office visit Katty DURÁNP 05/06/2013 Office visit Melecio Wilkinson DO 04/07/2013 Office visit Gorge Yo MD 02/26/2013 Office visit Melecio Wilkinson DO 01/29/2013 Office visit Gorge Yo MD 01/06/2013 Office visit Gorge Yo MD 12/09/2012 [facility] Ama Barrios MD 12/09/2012 Office visit Stephanie Richardson CANCER PROGRAM CONSULTANT 11/26/2012 Office visit Gorge Yo MD 10/30/2012 [...] Office visit Gorge Yo MD 05/12/2012 [facility] DO 05/11/2012 [facility] DO 03/13/2012 Office visit Gorge Yo [...] visit Melecio Wilkinson DO 12/27/2010 Office visit Groge Yo MD 11/29/2010 Office visit Gorge Yo [...]
--- OUTSIDE RECORDS SUMMARY | 2018-01-22 17:56 | XMS REPORT ---
Author Author Melecio Wilkinson [facility] Address [address] [place] [id number] Care Team Providers Care Aircraft Maintenance Supervisor Name Role Phone Melecio Wilkinson PCP [...] for 30 days Discontinued by Hospitalist at [place] [facility] Augmentin 875-125 mg oral tablet 11/07/2010 03/05/2011 [...] route every 12 hours for 30 days [place] stoned Problem List Description Status Onset SI [...] AM Kenalog, Per 10 Mg [facility]#3343-6383-03 Reviewed 06/19/2011 12:00 AM DRAIN/INJ JOINT/BURSA W/O US Reviewed 06/19/2011 12:00 AM Kenalog 40 Mg Im-[facility]#6906-2727-95 Reviewed 08/25/2015 12:00 AM OFFICE/OUTPATIENT VISIT EST Reviewed 08/23/2015 12:00 AM Decadron, Per 1 Mg [facility]# [address]-08 Reviewed 08/23/2015 12:00 AM Depo-Medrol, Per 80 Mg [facility]#[address]-29 Reviewed 09/07/2015 12:00 AM X-RAY EXAM L-S [...] Decadron, Per 1 Mg [facility]# [address]-48 Reviewed 08/08/2016 12:00 AM Depo-Medrol, Per 80 Mg [facility]#[address]-74 Reviewed 01/01/2012 12:00 AM Rocephin 1 gm [facility]#[address]-29 Reviewed 09/26/2016 12:00 AM CHEST X-RAY 2VW FRONTAL&LATL Reviewed 01/16/2012 12:00 AM DRAIN/INJ JOINT/BURSA W/O US Reviewed 01/16/2012 12:00 AM Kenalog per 10Mg [facility]#[address]-33(Srinath) Reviewed 02/05/2012 12:[address] ABDOMEN W/O & W/DYE Reviewed 02/05/2012 12:[address] PELVIS W/O & W/DYE Reviewed 05/29/2012 12:00 AM DRAIN/INJ JOINT/BURSA W/O US Reviewed 05/29/2012 12:00 AM SYNVISC, Per 1 Mg (2ml) [facility] [address]-65 Reviewed 06/05/2012 12:00 AM DRAIN/INJ JOINT/BURSA W/O US Reviewed 06/05/2012 12:00 AM SYNVISC, Per 1 Mg (2ml) [facility] [address]-41 Reviewed 06/12/2012 12:00 AM DRAIN/INJ JOINT/BURSA W/O US Reviewed 06/12/2012 12:00 AM SYNVISC, Per 1 Mg (2ml) [facility] [address]-75 Reviewed 07/16/2012 12:00 AM Hepatobiliary ductal system imaging with functional assessment Reviewed 07/16/2012 12:00 AM Decadron 8 mg [facility]#75756806089 Reviewed 07/16/2012 12:00 AM Depo-Medrol 80mg [facility]#05319535548 Reviewed 07/16/2012 12:00 AM COMPREHEN METABOLIC PANEL Reviewed 07/16/2012 12:00 AM LIPID PANEL Reviewed 07/16/2012 12:00 AM Flu Injection 3 Years And Above [facility]# [address]-65 RHC Reviewed 08/19/2012 12:00 AM METABOLIC PANEL TOTAL CA Reviewed 12/21/2009 12:[address] ABDOMEN W/O & W/DYE Reviewed 10/02/2012 12:00 AM CHEST X-RAY 2VW FRONTAL&LATL Reviewed 10/09/2012 12:00 AM Decadron 8 mg [facility]#19579136152 Reviewed 10/09/2012 12:00 AM Depo-Medrol 80mg [facility]#09598075094 Reviewed 12/09/2012 12:00 AM CHEST X-RAY 2VW [...] Per 1 Mg (6ml) [facility] [address]-19 Reviewed 02/26/2013 12:[address] NECK SPINE W/O & W/DYE Reviewed 04/07/2013 12:00 AM INJECT TRIGGER POINTS 3/> Reviewed 04/07/2013 12:00 AM Kenalog per 10Mg Im-[facility]#[address]-66(Srinath) Reviewed 07/21/2013 12:00 AM CHEST X-RAY 2VW FRONTAL&LATL Reviewed 07/21/2013 12:00 AM Decadron 8 mg [facility]# [address]-97 Reviewed 07/21/2013 12:00 AM Depo-Medrol 80 mg [facility]#[address]-20 Reviewed 07/21/2013 12:00 AM Rocephin 500 mg [facility]#5318-1071-84 Reviewed 09/22/2013 12:00 AM CHEST X-RAY 2VW FRONTAL&LATL Reviewed 10/29/2013 12:00 AM X-RAY EXAM OF ABDOMEN Reviewed 12/08/2013 12:00 AM THER/PROPH/DIAG INJ SC/IM Reviewed 12/08/2013 12:00 AM Decadron, Per 1 Mg [facility]# [address]-73 Reviewed 12/08/2013 12:00 AM Depo-Medrol, Per 80 Mg [facility]#4224-7800-90 Reviewed 12/08/2013 12:00 AM CHEST X-RAY 2VW [...] AM Decadron 8 mg [facility]# [address]-52 Reviewed 01/05/2014 12:00 AM Depo-Medrol 80 mg [facility]#[address]-81 Reviewed 01/05/2014 12:00 AM Rocephin 1 gram [facility]#6991-0771-63 Reviewed 03/15/2010 12:00 AM PROTHROMBIN TIME Reviewed [...] Reviewed 09/28/2010 12:00 AM Kenalog per 10Mg [facility]#[address]-01(Srinath) Reviewed 05/05/2014 12:00 AM DRAIN/INJ JOINT/BURSA W/O US Reviewed 05/05/2014 12:00 AM SYNVISC-ONE, Per 1 Mg (6ml) [facility] [address]-93 Reviewed 05/06/2014 12:00 AM COMPREHEN METABOLIC PANEL [...] 12:00 AM Rocephin 500 mg [facility]#[address]-87 Reviewed 07/14/2014 12:00 AM Fluzone MEDICARE Only Reviewed 11/29/2010 12:00 AM INJECT TRIGGER POINTS 3/> Reviewed 11/29/2010 12:00 AM Kenalog per 10Mg [facility]#[address]-81(Srinath) Reviewed 07/14/2014 12:00 AM Decadron injection Reviewed [...] CVX Pneumococcal 07/09/2016 [facility] Prevnar 13 [id number] Intramuscular Right Deltoid 07/09/2016 07/28/2015 133 History [...] Start Date Medicare Part A Medicare C [id number] N/A [facility] - [facility] - [place] State [place] [facility] [place] [id number] Wednesday, 2015 Medicare Part A Medicare - Lab/Xray [id number] N/[facility] [id number] N/A [place] [employer] Medicare [place] [employer] Ins [id number] N/A [place] Medical Assistance [facility] Medical Assistance Prog [id number] N/A Medicare Part B Medicare Of [place] [id number] Friday, February 22, 2008 Medicare Part A Medicare Part A [id number] N/A [facility] Comm [id number] Wednesday, September 23, 2015 History of Encounters [...] DO 01/12/2015 Office visit Katty CRAIG 12/16/2014 [facility] Alfa Platt MD 12/14/2014 Voided Melecio Jaja DO 12/08/2014 Office visit Alfa Platt MD 12/08/2014 Office visit Melecio Jaja DO 12/07/2014 Nurse visit Riri Salazar MD 12/02/2014 [facility] 11/29[facility]2014 Voided Katty CRAIG 11/11/2014 Office visit 11/11/2014 Office visit Katty CRAIG 11/11/2014 Office visit Melecio Jaja DO 10/14/2014 Office visit Katty CRAIG 09/14/2014 Office visit Katty CRAIG 09/08/2014 [facility] Ama Barrios MD 09/07/2014 Office visit Melecio Jaja DO 08/16/2014 Nurse visit Katty CRAIG 07/19/2014 Office visit Katty CRAIG 07/14/2014 Office visit Melecio Jaja DO 06/21/2014 Office visit Katty CRAIG 05/20/2014 Office visit Melceio Jaja DO 05/14/2014 Office visit Melecio Jaja DO 05/05/2014 Office visit Katty CRAIG 04/26/2014 Office visit Katty CRAIG 03/24/2014 Office visit Katty CRAIG 02/24/2014 Office visit Katty CRAIG 01/05/2014 Office visit Melecio Wilkinson DO 12/23/2013 Office visit Katty CRAIG 12/23/2013 Office visit Melecio Cruzte DO 12/18/2013 Office visit Janis Navarrete COMPUTER NUMERICAL CONTROL GRINDER 12/08/2013 Office visit Janis Navarrete COMPUTER NUMERICAL CONTROL GRINDER 11/25/2013 Office visit Katty DURÁNP 10/29/2013 Office visit Melecio Wilkinson DO 09/22/2013 Office visit Janis Navarrete COMPUTER NUMERICAL CONTROL GRINDER 07/28/2013 Office visit Katty DURÁNP 07/21/2013 Office visit Melecio Wilkinson DO 07/08/2013 Office visit Katty CRAIG 05/06/2013 Office visit Melecio Wilkinson DO 04/07/2013 Office visit Gorge Yo MD 02/26/2013 Office visit Melecio Wilkinson DO 01/29/2013 Office visit Gorge Yo MD 01/06/2013 Office visit Gorge Yo MD 12/09/2012 [facility] Ama Barrios MD 12/09/2012 Office visit Stephanie Richardson COMPUTER NUMERICAL CONTROL GRINDER 11/26/2012 Office visit Gorge Yo MD 10/30/2012 [facility] Gorge Yo MD 10/29/2012 Office [...] 05/14/2012 Office visit Gorge Yo MD 05/12/2012 [facility] DO 05/11/2012 [facility] DO 03/13/2012 Office visit Gorge Yo MD 02/05/2012 Office visit Melecio Wilkinson DO 01/31/2012 Office visit Gorge Yo MD 01/16/2012 Office visit Gorge Yo MD 01/01/2012 Office visit Melecio Wilkinson DO 11/16/2011 Office visit Gorge Yo MD 10/05/2011 Office visit Gorge Yo MD 10/01/2011 Office visit Janis Navarrete [employer] 09/06/2011 Office visit Gorge Yo MD 07/26/2011 Office visit Melecio Wilkinson DO 06/19/2011 Office visit Gorge Yo MD 06/06/2011 Office visit Gorge Yo MD 03/22/2011 Office visit Gorge Yo MD 03/05/2011 Office visit Melecio Wilkinson DO 02/06/2011 [facility] Gorge Yo MD 01/08/2011 Office visit Melecio Wilkinson DO 12/27/2010 Office visit Gorge Yo MD 11/29/2010 Office visit Gorge Yo MD 11/07/2010 Office visit Melecio Wilkinson DO 09/28/2010 Office visit Gorge Yo MD 09/05/2010 [facility] Gorge Yo MD 08/28/2010 Office [...]
--- OUTSIDE RECORDS SUMMARY | 2018-01-22 18:03 | XMS REPORT ---
Author Author Melecio Wilkinson [facility] Address [address] [place], [place] [id number] Care Team Providers Care Capacity Management Specialist Name Role Phone Melecio Wilkinson [...] for 30 days Discontinued by Hospitalist at [place] niacin 500 mg oral tablet 10/10/2016 take [...] 12:00 AM Kenalog, Per 10 Mg [facility]#1163-5699-34 Reviewed 12/07/2014 12:00 AM OFFICE/OUTPATIENT VISIT EST Reviewed 06/19/2011 12:00 AM DRAIN/INJ JOINT/BURSA W/O US Reviewed 06/19/2011 12:00 AM Kenalog 40 Mg Im-Nd#2480-9866-82 Reviewed 08/25/2015 12:00 AM OFFICE/OUTPATIENT VISIT EST Reviewed 08/23/2015 12:00 AM Decadron, Per 1 Mg [facility]# [address]-68 Reviewed 08/23/2015 12:00 AM Depo-Medrol, Per 80 Mg [facility]#[address]-74 Reviewed 09/07/2015 12:00 AM X-RAY EXAM L-S [...] 10/23/2015 12:00 AM Decadron, Per 1 Mg [facility]# [address]-12 Reviewed 10/23/2015 12:00 AM Depo-Medrol, Per 80 Mg [facility]#[address]-88 Reviewed 07/26/2011 12:00 AM X-RAY EXAM OF ABDOMEN Reviewed 11/21/2015 12:00 AM Orthopedics Consultation Reviewed 11/21/2015 12:00 AM Physical Therapy Consultation Reviewed 12/20/2015 12:00 AM EXTREMITY STUDY Reviewed 10/12/2011 12:00 AM EXTREMITY STUDY Reviewed 05/10/2016 12:00 AM CONTRAST X-RAY OF SHOULDER Reviewed 07/09/2016 12:00 AM PNEUMOCOCCAL VACC 13 RIP IM Reviewed 08/08/2016 12:00 AM Decadron, Per 1 Mg [facility]# [address]-15 Reviewed 08/08/2016 12:00 AM Depo-Medrol, Per 80 Mg [facility]#[address]-95 Reviewed 01/01/2012 12:00 AM AIRWAY INHALATION TREATMENT Reviewed 01/01/2012 12:00 AM Rocephin 1 gm [facility]#[address]-69 Reviewed 01/16/2012 12:00 AM DRAIN/INJ JOINT/BURSA W/O US Reviewed 01/16/2012 12:00 AM Kenalog per 10Mg [facility]#[address]-19(Srinath) Reviewed 09/26/2016 12:00 AM CHEST X-RAY 2VW [...] AM SYNVISC, Per 1 Mg (2ml) [facility] [address]-25 Reviewed 06/05/2012 12:00 AM DRAIN/INJ JOINT/BURSA W/O US Reviewed 06/05/2012 12:00 AM SYNVISC, Per 1 Mg (2ml) [facility] [address]-69 Reviewed 06/12/2012 12:00 AM DRAIN/INJ JOINT/BURSA W/O US Reviewed 06/12/2012 12:00 AM SYNVISC, Per 1 Mg (2ml) [facility] [address]-64 Reviewed 07/16/2012 12:00 AM Hepatobiliary ductal system imaging with functional assessment Reviewed 07/16/2012 12:00 AM Decadron 8 mg [facility]#[id number] Reviewed 07/16/2012 12:00 AM Depo-Medrol 80mg [facility]#[id number] Reviewed 07/16/2012 12:00 AM COMPREHEN METABOLIC PANEL Reviewed 07/16/2012 12:00 AM LIPID PANEL Reviewed 07/16/2012 12:00 AM Flu Injection 3 Years And Above [facility]# [address]-00 RHC Reviewed 08/19/2012 12:00 AM METABOLIC PANEL TOTAL CA Reviewed 12/21/2009 12:[address] ABDOMEN W/O & W/DYE Reviewed 10/02/2012 12:00 AM CHEST X-RAY 2VW FRONTAL&LATL Reviewed 10/09/2012 12:00 AM Decadron 8 mg [facility]#[id number] Reviewed 10/09/2012 12:00 AM Depo-Medrol 80mg [facility]#15690549456 Reviewed 12/09/2012 12:00 AM CHEST X-RAY 2VW [...] AM SYNVISC-ONE, Per 1 Mg (6ml) [facility] [address]-56 Reviewed 02/26/2013 12:00 AM Physical Therapy Reviewed 02/26/2013 12:[address] NECK SPINE W/O & W/DYE Reviewed 04/07/2013 12:00 AM INJECT TRIGGER POINTS 3/> Reviewed 04/07/2013 12:00 AM Kenalog per 10Mg [facility]#[address]-43(Srinath) Reviewed 07/21/2013 12:00 AM CHEST X-RAY 2VW FRONTAL&LATL Reviewed 07/21/2013 12:00 AM Decadron 8 mg [facility]# [address]-67 Reviewed 07/21/2013 12:00 AM Depo-Medrol 80 mg [facility]#[address]-22 Reviewed 07/21/2013 12:00 AM Rocephin 500 mg [facility]#0359-2961-99 Reviewed 09/22/2013 12:00 AM CHEST X-RAY 2VW FRONTAL&LATL Reviewed 10/29/2013 12:00 AM X-RAY EXAM OF ABDOMEN Reviewed 12/08/2013 12:00 AM THER/PROPH/DIAG INJ SC/IM Reviewed 12/08/2013 12:00 AM Decadron, Per 1 Mg [facility]# [address]-64 Reviewed 12/08/2013 12:00 AM Depo-Medrol, Per 80 Mg [facility]#2371-3751-76 Reviewed 12/08/2013 12:00 AM CHEST X-RAY 2VW [...] 01/05/2014 12:00 AM Decadron 8 mg [facility]# [address]-18 Reviewed 01/05/2014 12:00 AM Depo-Medrol 80 mg [facility]#[address]-29 Reviewed 01/05/2014 12:00 AM Rocephin 1 gram [facility]#3421-9022-92 Reviewed 03/15/2010 12:00 AM PROTHROMBIN TIME Reviewed [...] 09/28/2010 12:00 AM Kenalog per 10Mg [facility]#[address]-99(Srinath) Reviewed 05/05/2014 12:00 AM DRAIN/INJ JOINT/BURSA W/O US Reviewed 05/05/2014 12:00 AM SYNVISC-ONE, Per 1 Mg (6ml) [facility] [address]-05 Reviewed 05/06/2014 12:00 AM COMPREHEN METABOLIC PANEL [...] 11/07/2010 12:00 AM Rocephin 500 mg [facility]#[address]-63 Reviewed 07/14/2014 12:00 AM Fluzone MEDICARE Only Reviewed 11/29/2010 12:00 AM INJECT TRIGGER POINTS 3/> Reviewed 11/29/2010 12:00 AM Kenalog per 10Mg -[facility]#[address]-47(Srinath) Reviewed 07/14/2014 12:00 AM Decadron injection Reviewed [...] Vis Given Vis Pub CVX Pneumococcal 07/09/2016 Dymro-Bzlkjr-Srqxedl-Pracharbel WAL Prevnar 13 [id number] Intramuscular Right Deltoid 07/09/2016 07/28/2015 133 History [...] Number Start Date Medicare RHC Medicare RHC [id number] N/A [employer] [place] State [place] Amerigroup [place] State Plan [id number] N/A [place] Life Medicare [place] Life Ins [id number] N/A [facility] Medical Assistance Pro [id number] N/A Medicare Part B Medicare Of [place] [id number] Friday, 2008 Medicare Part A Medicare Part A [id number] N/A [facility] - RHC - Community Plan [facility] RHC Comm [id number] Wednesday, 2015 [employer] - [place] - [place] State [place] [employer] [place] State Plan [id number] Wednesday, 2015 Medicare Part A Medicare - Lab/Xray [id number] N/A History of Encounters Visit Date Visit Type Provider 04/03/2017 Office visit Melecio Jaja DO 03/28/2017 Office visit Melecio Jaja DO 03/11/2017 Office visit Melecio Jaja DO 02/22/2017 Office visit Melecio Jaja DO 02/05/2017 Office visit Melecio Jaja DO 2017 Hospital Rasta Mckeon MD 2017 Hospital Ama Barrios MD 01/09/2017 Office visit Melecio Jaja DO 01/01/2017 [facility] Seth Devlin DO 12/31/2016 Hospital [...] [facility] Magi Powers MD 11/29/2014 Hospital Magi oPwers MD 11/29/2014 Voided Katty CRAIG 11/11/2014 Office [...] visit Gorge Yo MD 05/12/2012 [facility] DO 05/11/2012 [facility] DO 03/13/2012 Office visit Gorge Yo MD [...] Office visit Gorge Yo MD 04/02/2010 [facility] Alfonso Camacho MD 03/31/2010 Laboratory Alfonso Camacho MD 03/31/2010 Laboratory Alfonso Camacho MD 03/31/2010 [facility] Alfonso Camacho MD 03/21/2010 Procedures [...]
--- OUTSIDE RECORDS SUMMARY | 2018-01-22 18:08 | XMS REPORT ---
Author Author Melecio Wilkinson [facility] Address [address] [place] [phone] Care Team Providers Care Solar Electric Practitioner Name Role Phone Melecio Wilkinson PCP Unavailable [...] for 30 days Discontinued by Hospitalist at [place] Augmentin 875-125 mg oral tablet 11/07/2010 03/05/2011 [...] route every 12 hours for 30 days [place] stoned Problem List Description Status Onset SI [...] 07/11/2015 12:00 AM Kenalog, Per 10 Mg [facility]#7660-6329-93 Reviewed 06/19/2011 12:00 AM DRAIN/INJ JOINT/BURSA W/O US Reviewed 06/19/2011 12:00 AM Kenalog 40 Mg [facility]#1260-2659-72 Reviewed 08/25/2015 12:00 AM OFFICE/OUTPATIENT VISIT EST Reviewed 08/23/2015 12:00 AM Decadron, Per 1 Mg [facility]# [address]-18 Reviewed 08/23/2015 12:00 AM Depo-Medrol, Per 80 Mg [facility]#[address]-39 Reviewed 09/07/2015 12:00 AM X-RAY EXAM L-S [...] Reviewed 01/01/2012 12:00 AM Rocephin 1 gm [facility]#[address]-05 Reviewed 01/16/2012 12:00 AM DRAIN/INJ JOINT/BURSA W/O US Reviewed 01/16/2012 12:00 AM Kenalog per 10Mg [facility]#[address]-39(Srinath) Reviewed 02/05/2012 12:[address] ABDOMEN W/O & W/DYE Reviewed 02/05/2012 12:[address] PELVIS W/O & W/DYE Reviewed 05/29/2012 12:00 AM DRAIN/INJ JOINT/BURSA W/O US Reviewed 05/29/2012 12:00 AM SYNVISC, Per 1 Mg (2ml) [facility] [address]-91 Reviewed 06/05/2012 12:00 AM DRAIN/INJ JOINT/BURSA W/O US Reviewed 06/05/2012 12:00 AM SYNVISC, Per 1 Mg (2ml) [facility] [address]-80 Reviewed 06/12/2012 12:00 AM DRAIN/INJ JOINT/BURSA W/O US Reviewed 06/12/2012 12:00 AM SYNVISC, Per 1 Mg (2ml) [facility] [address]-30 Reviewed 07/16/2012 12:00 AM Hepatobiliary ductal system imaging with functional assessment Reviewed 07/16/2012 12:00 AM Decadron 8 mg [facility]#56203752065 Reviewed 07/16/2012 12:00 AM Depo-Medrol 80mg [facility]#84650108118 Reviewed 07/16/2012 12:00 AM COMPREHEN METABOLIC PANEL Reviewed 07/16/2012 12:00 AM LIPID PANEL Reviewed 07/16/2012 12:00 AM Flu Injection 3 Years And Above [facility]# [address]-92 RHC Reviewed 08/19/2012 12:00 AM METABOLIC PANEL TOTAL CA Reviewed 12/21/2009 12:[address] ABDOMEN W/O & W/DYE Reviewed 10/02/2012 12:00 AM CHEST X-RAY 2VW FRONTAL&LATL Reviewed 10/09/2012 12:00 AM Decadron 8 mg [facility]#46752396734 Reviewed 10/09/2012 12:00 AM Depo-Medrol 80mg [facility]#88979009218 Reviewed 12/09/2012 12:00 AM CHEST X-RAY 2VW [...] 12:00 AM SYNVISC-ONE, Per 1 Mg (6ml) [facility] [address]-60 Reviewed 02/26/2013 12:[address] NECK SPINE W/O & W/DYE Reviewed 04/07/2013 12:00 AM INJECT TRIGGER POINTS 3/> Reviewed 04/07/2013 12:00 AM Kenalog per 10Mg [facility]#[address]-00(Srinath) Reviewed 07/21/2013 12:00 AM CHEST X-RAY 2VW FRONTAL&LATL Reviewed 07/21/2013 12:00 AM Decadron 8 mg [facility]# [address]-62 Reviewed 07/21/2013 12:00 AM Depo-Medrol 80 mg [facility]#[address]-53 Reviewed 07/21/2013 12:00 AM Rocephin 500 mg [facility]#9614-8989-25 Reviewed 09/22/2013 12:00 AM CHEST X-RAY 2VW FRONTAL&LATL Returned 10/29/2013 12:00 AM X-RAY EXAM OF ABDOMEN Reviewed 12/08/2013 12:00 AM THER/PROPH/DIAG INJ SC/IM Reviewed 12/08/2013 12:00 AM Decadron, Per 1 Mg [facility]# [address]-35 Reviewed 12/08/2013 12:00 AM Depo-Medrol, Per 80 Mg [facility]#5889-0017-14 Reviewed 12/08/2013 12:00 AM CHEST X-RAY 2VW [...] Returned 01/05/2014 12:00 AM Decadron 8 mg [facility]# [address]-93 Reviewed 01/05/2014 12:00 AM Depo-Medrol 80 mg [facility]#[address]-51 Reviewed 01/05/2014 12:00 AM Rocephin 1 gram [facility]#2270-3385-95 Reviewed 03/15/2010 12:00 AM PROTHROMBIN TIME Reviewed [...] 12:00 AM Kenalog per 10Mg [facility]#[address]-69(Srinath) Reviewed 05/05/2014 12:00 AM DRAIN/INJ JOINT/BURSA W/O US Reviewed 05/05/2014 12:00 AM SYNVISC-ONE, Per 1 Mg (6ml) [facility] [address]-28 Reviewed 05/06/2014 12:00 AM COMPREHEN METABOLIC PANEL [...] Reviewed 11/07/2010 12:00 AM Rocephin 500 mg [facility]#[address]-57 Reviewed 07/14/2014 12:00 AM Fluzone MEDICARE Only Reviewed 11/29/2010 12:00 AM INJECT TRIGGER POINTS 3/> Reviewed 11/29/2010 12:00 AM Kenalog per 10Mg -[facility]#[address]-89(Srinath) Reviewed 07/14/2014 12:00 AM Decadron injection Reviewed [...] Start Date Medicare Part A Medicare RHC [id number] N/A [employer] [place] [employer] [place] [id number] Wednesday, 2015 Medicare Part A Medicare - Lab/Xray [id number] N/A [place] Life Medicare [facility] Life Ins [id number] N/A [place] Medical Assistance [facility] Medical Assistance Prog [id number] N/A Medicare Part B Medicare Of [place] [id number] Friday, February 22, 2008 Medicare Part A Medicare Part A [id number] N/A [facility] - RHC - [facility] Plan [facility] Comm [id number] Wednesday, September 23, 2015 History of Encounters [...] [facility] Magi Powers MD 11/29/2014 [facility] Magi Powers MD 11/29/2014 Voided Katty CRAIG 11/11/2014 Office visit 11/11/2014 Office visit Katty CRAIG 11/11/2014 Office visit Melecio Jaja DO 10/14/2014 Office visit Katty CRAIG 09/14/2014 Office visit Katty CRAIG 09/08/2014 Hospital Ama Barrios MD 09/07/2014 Office visit Melecio Jaja DO 08/16/2014 Nurse visit Katty Jefferson FRONT DESK REPRESENTATIVE 07/19/2014 Office visit Katty Jefferson FRONT DESK REPRESENTATIVE 07/14/2014 Office visit Melecio Jaja DO 06/21/2014 Office visit Katty Jefferson FRONT DESK REPRESENTATIVE 05/20/2014 Office visit Melecio Jaja DO 05/14/2014 Office visit Melecio [place] DO 05/05/2014 Office visit Katty Jefferson FRONT DESK REPRESENTATIVE 04/26/2014 Office visit Katty Jefferson FRONT DESK REPRESENTATIVE 03/24/2014 Office visit Katty Jefferson FRONT DESK REPRESENTATIVE 02/24/2014 Office visit Katty Jefferson FRONT DESK REPRESENTATIVE 01/05/2014 Office visit Melecio Jaja DO 12/23/2013 Office visit Katty Jefferson FRONT DESK REPRESENTATIVE 12/23/2013 Office visit Melecio Jaja DO 12/18/2013 Office visit Janis Navarrete GAS REGULATOR REPAIRER HELPER 12/08/2013 Office visit Janis Landon GAS REGULATOR REPAIRER HELPER 11/25/2013 Office visit Katty Jefferson FRONT DESK REPRESENTATIVE 10/29/2013 Office visit Melecio Wilkinson DO 09/22/2013 Office visit Janis Navarrete GAS REGULATOR REPAIRER HELPER 07/28/2013 Office visit Katty DURÁNP 07/21/2013 Office visit Melecio Jaja DO 07/08/2013 Office visit Katty CRAIG 05/06/2013 Office visit Melecio Wilkinson DO 04/07/2013 Office visit Gorge Yo MD 02/26/2013 Office visit Melecio Wilkinson DO 01/29/2013 Office visit Gorge Yo MD 01/06/2013 Office visit Gorge Yo MD 12/09/2012 [facility] Ama Barrios MD 12/09/2012 Office visit Stephanie Richardson GAS REGULATOR REPAIRER HELPER 11/26/2012 Office visit Gorge Yo MD 10/30/2012 [...] 05/14/2012 Office visit Gorge Yo MD 05/12/2012 [facility] DO 05/11/2012 [facility] DO 03/13/2012 Office visit Gorge Yo [...] Office visit Melecio Wilkinson DO 02/06/2011 [facility] Gorge Yo MD 01/08/2011 Office [...] Office visit Gorge Yo MD 04/02/2010 [facility] Alfonso Camacho MD 03/31/2010 Laboratory Alfonso Camacho MD 03/31/2010 Laboratory Alfonso Camacho MD 03/31/2010 Hospital Alfonso Camacho MD 03/21/2010 Procedures Groge Yo MD 03/16/2010 Office visit Gorge Yo [...]
--- OUTSIDE RECORDS SUMMARY | 2018-01-22 18:13 | XMS REPORT ---
Author Author Melecio Wilkinson [facility] Address [address] [place] [id number] Care Team Providers Care Land Reclamation Specialist Name Role Phone Melecio Wilkinson PCP Unavailable Melecio Wiliknson PreferredProvider Unavailable Allergies and Adverse Reactions Name [...] for 30 days Discontinued by Hospitalist at [place] niacin 500 mg oral tablet 10/10/2016 take [...] route every 12 hours for 30 days [place] guerita Amitiza 24 mcg oral capsule 05/03/2016 [...] Mg [facility]#1426-2634-72 Reviewed 06/19/2011 12:00 AM DRAIN/INJ JOINT/BURSA W/O US Reviewed 06/19/2011 12:00 AM Kenalog 40 Mg Im-[facility]#1681-4353-10 Reviewed 08/25/2015 12:00 AM OFFICE/OUTPATIENT VISIT EST Reviewed 08/23/2015 12:00 AM Decadron, Per [address] [facility]# [address]-84 Reviewed 08/23/2015 12:00 AM Depo-Medrol, Per [address] [facility]#[address]-32 Reviewed 09/07/2015 12:00 AM X-RAY EXAM L-S [...] [facility]# [address]-36 Reviewed 08/08/2016 12:00 AM Depo-Medrol, Per [address] [facility]#[address]-80 Reviewed 01/01/2012 12:00 AM Rocephin [address] [facility]#[address]-39 Reviewed 01/16/2012 12:00 AM DRAIN/INJ JOINT/BURSA W/O US Reviewed 01/16/2012 12:00 AM Kenalog per 10Mg [facility]#[address]-80(Srinath) Reviewed 09/26/2016 12:00 AM CHEST X-RAY 2VW FRONTAL&LATL Reviewed 10/23/2016 12:00 AM INJECT SPINE LUMBAR/SACRAL Reviewed 02/05/2012 12:[address] ABDOMEN W/O & W/DYE Reviewed 02/05/2012 12:[address] PELVIS W/O & W/DYE Reviewed 05/29/2012 12:00 AM DRAIN/INJ JOINT/BURSA W/O US Reviewed 05/29/2012 12:00 AM SYNVISC, Per 1 Mg (2ml) [facility] [address]-81 Reviewed 06/05/2012 12:00 AM DRAIN/INJ JOINT/BURSA W/O US Reviewed 06/05/2012 12:00 AM SYNVISC, Per 1 Mg (2ml) [facility] [address]-28 Reviewed 06/12/2012 12:00 AM DRAIN/INJ JOINT/BURSA W/O US Reviewed 06/12/2012 12:00 AM SYNVISC, Per 1 Mg (2ml) [facility] [address]-28 Reviewed 07/16/2012 12:00 AM Hepatobiliary ductal system imaging with functional assessment Reviewed 07/16/2012 12:00 AM Decadron [address] [facility]#[id number] Reviewed 07/16/2012 12:00 AM Depo-Medrol 80mg [facility]#[id number] Reviewed 07/16/2012 12:00 AM COMPREHEN METABOLIC PANEL Reviewed 07/16/2012 12:00 AM LIPID PANEL Reviewed 07/16/2012 12:00 AM Flu Injection 3 Years And Above [facility]# [address]-31 RHC Reviewed 08/19/2012 12:00 AM METABOLIC PANEL TOTAL CA Reviewed 12/21/2009 12:[address] ABDOMEN W/O & W/DYE Reviewed 10/02/2012 12:00 AM CHEST X-RAY 2VW FRONTAL&LATL Reviewed 10/09/2012 12:00 AM Decadron [address] [facility]#[id number] Reviewed 10/09/2012 12:00 AM Depo-Medrol 80mg [facility]#[id number] Reviewed 12/09/2012 12:00 AM CHEST X-RAY 2VW [...] [facility] [address]-51 Reviewed 02/26/2013 12:[address] NECK SPINE W/O & W/DYE Reviewed 04/07/2013 12:00 AM INJECT TRIGGER POINTS 3/> Reviewed 04/07/2013 12:00 AM Kenalog per 10Mg [facility]#[address]-66(Srinath) Reviewed 07/21/2013 12:00 AM CHEST X-RAY 2VW FRONTAL&LATL Reviewed 07/21/2013 12:00 AM Decadron [address] [facility]# [address]-75 Reviewed 07/21/2013 12:00 AM Depo-Medrol [address] [facility]#[address]-88 Reviewed 07/21/2013 12:00 AM Rocephin [address] [facility]#6385-7231-45 Reviewed 09/22/2013 12:00 AM CHEST X-RAY 2VW FRONTAL&LATL Reviewed 10/29/2013 12:00 AM X-RAY EXAM OF ABDOMEN Reviewed 12/08/2013 12:00 AM THER/PROPH/DIAG INJ SC/IM Reviewed 12/08/2013 12:00 AM Decadron, Per [address] [facility]# [address]-59 Reviewed 12/08/2013 12:00 AM Depo-Medrol, Per [address] [facility]#8362-0716-67 Reviewed 12/08/2013 12:00 AM CHEST X-RAY 2VW [...] [facility]# [address]-50 Reviewed 01/05/2014 12:00 AM Depo-Medrol [address] [facility]#[address]-99 Reviewed 01/05/2014 12:00 AM Rocephin [address] [facility]#5165-3732-44 Reviewed 03/15/2010 12:00 AM PROTHROMBIN TIME Reviewed [...] per 10Mg [facility]#[address]-58(Srinath) Reviewed 05/05/2014 12:00 AM DRAIN/INJ JOINT/BURSA W/O US Reviewed 05/05/2014 12:00 AM SYNVISC-ONE, Per 1 Mg (6ml) [facility] [address]-61 Reviewed 05/06/2014 12:00 AM COMPREHEN METABOLIC PANEL [...] mg [facility]#[address]-08 Reviewed 07/14/2014 12:00 AM Fluzone MEDICARE Only Reviewed 11/29/2010 12:00 AM INJECT TRIGGER POINTS 3/> Reviewed 11/29/2010 12:00 AM Kenalog per 10Mg -[facility]#[address]-76(Srinath) Reviewed 07/14/2014 12:00 AM Decadron injection Reviewed [...] CVX Pneumococcal 07/09/2016 [facility] Prevnar 13 [id number] Intramuscular Right Deltoid 07/09/2016 07/28/2015 133 History [...] Group Number Start Date Medicare RHC Medicare [facility] [id number] N/A [employer] [place] [employer] [place] [id number] N/A [place] [employer] Medicare [place] Life Ins [id number] N/A [place] Medical Assistance [facility] Medical Assistance Pro [id number] N/A Medicare Part B Medicare Of [place] [id number] Friday, 2008 Medicare Part A Medicare Part A [id number] N/A [facility] - RHC - Community Plan [facility] RHC Comm [id number] Wednesday, 2015 [employer] [place] [employer] [place] [id number] Wednesday, 2015 Medicare Part A Medicare - Lab/Xray [id number] N/A History of Encounters Visit Date Visit [...] [facility] Magi Gio STRONG 11/29/2014 [facility] Gio STRONG 11/29/2014 Voided Katty CRAIG [...] Jaja DO 05/05/2014 Office visit Katty Jefferson SKATE SHOP ATTENDANT 04/26/2014 Office visit Katty Jefferson SKATE SHOP ATTENDANT 03/24/2014 Office visit Katty DURÁNP 02/24/2014 Office visit Katty Jefferson SKATE SHOP ATTENDANT 01/05/2014 Office visit Melecio Jaja DO 12/23/2013 Office visit Katty Jefferson SKATE SHOP ATTENDANT 12/23/2013 Office visit Melecio Jaja DO 12/18/2013 Office visit Janis Navarrete DEVELOPER RELATIONS MANAGER 12/08/2013 Office visit Janis Navarrete DEVELOPER RELATIONS MANAGER 11/25/2013 Office visit Katty Jefferson SKATE SHOP ATTENDANT 10/29/2013 Office visit Melecio Wilkinson DO 09/22/2013 Office visit Janis Navarrete DEVELOPER RELATIONS MANAGER 07/28/2013 Office visit Katty Jefferson SKATE SHOP ATTENDANT 07/21/2013 Office visit Melecio Wilkinson DO 07/08/2013 Office visit Katty CRAIG 05/06/2013 Office visit Melecio Wilkinson DO 04/07/2013 Office visit Gorge Yo MD 02/26/2013 Office visit Melecio Wilkinson DO 01/29/2013 Office visit Gorge Yo MD 01/06/2013 Office visit Gorge Yo MD 12/09/2012 [facility] Ama Barrios MD 12/09/2012 Office visit Stephanie Richardson DEVELOPER RELATIONS MANAGER 11/26/2012 Office visit Gorge Yo MD [...] 05/14/2012 Office visit Gorge Yo MD 05/12/2012 [facility] DO 05/11/2012 [facility] DO 03/13/2012 Office visit Gorge [...] MD 03/31/2010 Laboratory Alfonso Camacho MD 03/31/2010 [facility] Alfonso Camacho MD 03/21/2010 Procedures [...]
--- OUTSIDE RECORDS SUMMARY | 2018-01-22 18:18 | XMS REPORT ---
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 And Glaze Maker Name Role Phone Melecio Wilkinson PCP [...] for 30 days Discontinued by Hospitalist at [place] Augmentin 875-125 mg oral tablet 11/07/2010 03/05/2011 [...] 12:00 AM Kenalog, Per 10 Mg [facility]#2435-8600-98 Reviewed 06/19/2011 12:00 AM DRAIN/INJ JOINT/BURSA W/O US Reviewed 06/19/2011 12:00 AM Kenalog 40 Mg [facility]#2120-2492-47 Reviewed 08/25/2015 12:00 AM OFFICE/OUTPATIENT VISIT EST Reviewed 08/23/2015 12:00 AM Decadron, Per 1 Mg [facility]# [address]-11 Reviewed 08/23/2015 12:00 AM Depo-Medrol, Per 80 Mg [facility]#[address]-59 Reviewed 09/07/2015 12:00 AM X-RAY EXAM L-S [...] 01/01/2012 12:00 AM Rocephin 1 gm [facility]#[address]-09 Reviewed 01/16/2012 12:00 AM DRAIN/INJ JOINT/BURSA W/O US Reviewed 01/16/2012 12:00 AM Kenalog per 10Mg [facility]#[address]-06(Srinath) Reviewed 02/05/2012 12:[address] ABDOMEN W/O & W/DYE Reviewed 02/05/2012 12:[address] PELVIS W/O & W/DYE Reviewed 05/29/2012 12:00 AM DRAIN/INJ JOINT/BURSA W/O US Reviewed 05/29/2012 12:00 AM SYNVISC, Per 1 Mg (2ml) [facility] [address]-71 Reviewed 06/05/2012 12:00 AM DRAIN/INJ JOINT/BURSA W/O US Reviewed 06/05/2012 12:00 AM SYNVISC, Per 1 Mg (2ml) [facility] [address]-80 Reviewed 06/12/2012 12:00 AM DRAIN/INJ JOINT/BURSA W/O US Reviewed 06/12/2012 12:00 AM SYNVISC, Per 1 Mg (2ml) [facility] [address]-12 Reviewed 07/16/2012 12:00 AM Hepatobiliary ductal system imaging with functional assessment Reviewed 07/16/2012 12:00 AM Decadron 8 mg [facility]#[id number] Reviewed 07/16/2012 12:00 AM Depo-Medrol 80mg [facility]#10139000307 Reviewed 07/16/2012 12:00 AM COMPREHEN METABOLIC PANEL Reviewed 07/16/2012 12:00 AM LIPID PANEL Reviewed 07/16/2012 12:00 AM Flu Injection 3 Years And Above [facility]# [address]-60 RHC Reviewed 08/19/2012 12:00 AM METABOLIC PANEL TOTAL CA Reviewed 12/21/2009 12:[address] ABDOMEN W/O & W/DYE Reviewed 10/02/2012 12:00 AM CHEST X-RAY 2VW FRONTAL&LATL Reviewed 10/09/2012 12:00 AM Decadron 8 mg [place]#[id number] Reviewed 10/09/2012 12:00 AM Depo-Medrol 80mg [facility]#46815365601 Reviewed 12/09/2012 12:00 AM CHEST X-RAY 2VW [...] SYNVISC-ONE, Per 1 Mg (6ml) [facility] [address]-37 Reviewed 02/26/2013 12:[address] NECK SPINE W/O & W/DYE Reviewed 04/07/2013 12:00 AM INJECT TRIGGER POINTS 3/> Reviewed 04/07/2013 12:00 AM Kenalog per 10Mg [facility]#[address]-49(Srinath) Reviewed 07/21/2013 12:00 AM CHEST X-RAY 2VW FRONTAL&LATL Reviewed 07/21/2013 12:00 AM Decadron 8 mg [facility]# [address]-97 Reviewed 07/21/2013 12:00 AM Depo-Medrol 80 mg [facility]#[address]-86 Reviewed 07/21/2013 12:00 AM Rocephin 500 mg [facility]#5817-5824-16 Reviewed 09/22/2013 12:00 AM CHEST X-RAY 2VW FRONTAL&LATL Returned 10/29/2013 12:00 AM X-RAY EXAM OF ABDOMEN Reviewed 12/08/2013 12:00 AM THER/PROPH/DIAG INJ SC/IM Reviewed 12/08/2013 12:00 AM Decadron, Per 1 Mg [facility]# [address]-24 Reviewed 12/08/2013 12:00 AM Depo-Medrol, Per 80 Mg [facility]#0700-1547-73 Reviewed 12/08/2013 12:00 AM CHEST X-RAY 2VW [...] Returned 01/05/2014 12:00 AM Decadron 8 mg [facility]# [address]-81 Reviewed 01/05/2014 12:00 AM Depo-Medrol 80 mg [facility]#[address]-51 Reviewed 01/05/2014 12:00 AM Rocephin 1 gram [facility]#3425-6913-77 Reviewed 03/15/2010 12:00 AM PROTHROMBIN TIME Reviewed [...] Reviewed 09/28/2010 12:00 AM Kenalog per 10Mg [facility]#[address]-28(Srinath) Reviewed 05/05/2014 12:00 AM DRAIN/INJ JOINT/BURSA W/O US Reviewed 05/05/2014 12:00 AM SYNVISC-ONE, Per 1 Mg (6ml) [facility] [address]-54 Reviewed 05/06/2014 12:00 AM COMPREHEN METABOLIC PANEL [...] 11/07/2010 12:00 AM Rocephin 500 mg [facility]#[address]-83 Reviewed 07/14/2014 12:00 AM Fluzone MEDICARE Only Reviewed 11/29/2010 12:00 AM INJECT TRIGGER POINTS 3/> Reviewed 11/29/2010 12:00 AM Kenalog per 10Mg [facility]#[address]-83(Srinath) Reviewed 07/14/2014 12:00 AM Decadron injection Reviewed [...] Date Medicare Part A Medicare Part A [id number] N/A [employer] - [place] State [place] [employer] [place] [id number] Wednesday, [address] [facility] - RHC - [facility] Plan [facility] Comm [id number] Wednesday, 2015 [employer] [id number] N/A [place] Medical Assistance [facility] Medical Assistance Prog [id number] N/A Medicare Part B Medicare Of [place] [id number] Friday, 2008 History of Encounters Visit Date [...] 12/02/2014 [facility] Magi Powers MD 11/29/2014 [facility] Gio STRONG 11/29/2014 Voided Katty CRAIG [...] Katty CRAIG 02/24/2014 Office visit Kattyalton Jefferson ELECTRONICS MECHANIC APPRENTICE 01/05/2014 Office visit Melecio Wilkinson DO 12/23/2013 Office visit Katty Jefferson ELECTRONICS MECHANIC APPRENTICE 12/23/2013 Office visit Melecio Wilkinson DO 12/18/2013 Office visit Janis Navarrete MINE LABORER 12/08/2013 Office visit Janis Navarrete MINE LABORER 11/25/2013 Office visit Katty Jefferson ELECTRONICS MECHANIC APPRENTICE 10/29/2013 Office visit Melecio Wilkinson DO 09/22/2013 Office visit Janis Navarrete MINE LABORER 07/28/2013 Office visit Katty M. Ronny ELECTRONICS MECHANIC APPRENTICE 07/21/2013 Office visit Melecio Wilkinson DO 07/08/2013 Office visit Katty [place] ELECTRONICS MECHANIC APPRENTICE 05/06/2013 Office visit Melecio Wilkinson DO 04/07/2013 Office visit Gorge Yo MD 02/26/2013 Office visit Melecio Wilkinson DO 01/29/2013 Office visit Gorge oY MD 01/06/2013 Office visit Gorge Yo MD 12/09/2012 [facility] Ama Barrios MD 12/09/2012 Office visit Stephanie Richardson MINE LABORER 11/26/2012 Office visit Gorge Yo MD [...] 04/06/2010 Office visit Gorge Yo MD 04/02/2010 [facility] Alfonso Camacho MD 03/31/2010 Laboratory Alfonso Camacho MD 03/31/2010 Laboratory Alfonso Camacho MD 03/31/2010 [facility] Alfonso Camacho MD 03/21/2010 Procedures Gorge Yo MD 03/16/2010 Office visit Gorge Yo MD 03/15/2010 Office visit Melceio Wilkinson DO 02/23/2010 Office visit Gorge Yo MD 02/08/2010 Office visit Gorge Yo MD 12/28/2009 Office visit Gorge oY MD 12/21/2009 Office visit Melecio Wilkinson DO [...]
--- OUTSIDE RECORDS SUMMARY | 2018-01-22 18:23 | XMS REPORT ---
Author Author Melecio Wilkinson [facility] Address [address] [place], [place] [phone] Care Team Providers Care Floorperson Name Role Phone Melecio Wilkinson PCP Unavailable [...] for 30 days Discontinued by Hospitalist at [place] niacin 500 mg oral tablet 10/10/2016 take [...] 07/11/2015 12:00 AM Kenalog, Per 10 Mg [facility]#4321-5429-29 Reviewed 12/07/2014 12:00 AM OFFICE/OUTPATIENT VISIT EST Reviewed 06/19/2011 12:00 AM DRAIN/INJ JOINT/BURSA W/O US Reviewed 06/19/2011 12:00 AM Kenalog 40 Mg [facility]#7966-6766-16 Reviewed 08/25/2015 12:00 AM OFFICE/OUTPATIENT VISIT EST Reviewed 08/23/2015 12:00 AM Decadron, Per 1 Mg [facility]# [address]-18 Reviewed 08/23/2015 12:00 AM Depo-Medrol, Per 80 Mg [facility]#[address]-73 Reviewed 09/07/2015 12:00 AM X-RAY EXAM L-S [...] 10/23/2015 12:00 AM Decadron, Per 1 Mg [facility]# [address]-72 Reviewed 10/23/2015 12:00 AM Depo-Medrol, Per 80 Mg [facility]#[address]-00 Reviewed 07/26/2011 12:00 AM X-RAY EXAM OF ABDOMEN Reviewed 11/21/2015 12:00 AM Orthopedics Consultation Reviewed 11/21/2015 12:00 AM Physical Therapy Consultation Reviewed 12/20/2015 12:00 AM EXTREMITY STUDY Reviewed 10/12/2011 12:00 AM EXTREMITY STUDY Reviewed 05/10/2016 12:00 AM CONTRAST X-RAY OF SHOULDER Reviewed 07/09/2016 12:00 AM PNEUMOCOCCAL VACC 13 RIP IM Reviewed 08/08/2016 12:00 AM Decadron, Per 1 Mg [facility]# [address]-98 Reviewed 08/08/2016 12:00 AM Depo-Medrol, Per 80 Mg [facility]#[address]-03 Reviewed 01/01/2012 12:00 AM AIRWAY INHALATION TREATMENT Reviewed 01/01/2012 12:00 AM Rocephin 1 gm [facility]#[address]-96 Reviewed 01/16/2012 12:00 AM DRAIN/INJ JOINT/BURSA W/O US Reviewed 01/16/2012 12:00 AM Kenalog per 10Mg [facility]#[address]-10(Srinath) Reviewed 09/26/2016 12:00 AM CHEST X-RAY 2VW [...] 12:00 AM SYNVISC, Per 1 Mg (2ml) [facility] [address]-60 Reviewed 06/05/2012 12:00 AM DRAIN/INJ JOINT/BURSA W/O US Reviewed 06/05/2012 12:00 AM SYNVISC, Per 1 Mg (2ml) [facility] [address]-06 Reviewed 06/12/2012 12:00 AM DRAIN/INJ JOINT/BURSA W/O US Reviewed 06/12/2012 12:00 AM SYNVISC, Per 1 Mg (2ml) [facility] [address]-23 Reviewed 07/16/2012 12:00 AM Hepatobiliary ductal system imaging with functional assessment Reviewed 07/16/2012 12:00 AM Decadron 8 mg [facility]#58794862051 Reviewed 07/16/2012 12:00 AM Depo-Medrol 80mg [facility]#09574008478 Reviewed 07/16/2012 12:00 AM COMPREHEN METABOLIC PANEL Reviewed 07/16/2012 12:00 AM LIPID PANEL Reviewed 07/16/2012 12:00 AM Flu Injection 3 Years And Above [facility]# [address]-37 RHC Reviewed 08/19/2012 12:00 AM METABOLIC PANEL TOTAL CA Reviewed 12/21/2009 12:[address] ABDOMEN W/O & W/DYE Reviewed 10/02/2012 12:00 AM CHEST X-RAY 2VW FRONTAL&LATL Reviewed 10/09/2012 12:00 AM Decadron 8 mg [facility]#39630284277 Reviewed 10/09/2012 12:00 AM Depo-Medrol 80mg [facility]#08370917354 Reviewed 12/09/2012 12:00 AM CHEST X-RAY 2VW [...] 12:00 AM SYNVISC-ONE, Per 1 Mg (6ml) [facility] [address]-59 Reviewed 02/26/2013 12:00 AM Physical Therapy Reviewed 02/26/2013 12:[address] NECK SPINE W/O & W/DYE Reviewed 04/07/2013 12:00 AM INJECT TRIGGER POINTS 3/> Reviewed 04/07/2013 12:00 AM Kenalog per 10Mg [facility]#[address]-22(Srinath) Reviewed 07/21/2013 12:00 AM CHEST X-RAY 2VW FRONTAL&LATL Reviewed 07/21/2013 12:00 AM Decadron 8 mg [facility]# [address]-80 Reviewed 07/21/2013 12:00 AM Depo-Medrol 80 mg [facility]#[address]-18 Reviewed 07/21/2013 12:00 AM Rocephin 500 mg [facility]#2081-6484-94 Reviewed 09/22/2013 12:00 AM CHEST X-RAY 2VW FRONTAL&LATL Reviewed 10/29/2013 12:00 AM X-RAY EXAM OF ABDOMEN Reviewed 12/08/2013 12:00 AM THER/PROPH/DIAG INJ SC/IM Reviewed 12/08/2013 12:00 AM Decadron, Per 1 Mg [facility]# [address]-22 Reviewed 12/08/2013 12:00 AM Depo-Medrol, Per 80 Mg [facility]#3962-3393-35 Reviewed 12/08/2013 12:00 AM CHEST X-RAY 2VW [...] Reviewed 01/05/2014 12:00 AM Decadron 8 mg [facility]# [address]-98 Reviewed 01/05/2014 12:00 AM Depo-Medrol 80 mg [facility]#[address]-11 Reviewed 01/05/2014 12:00 AM Rocephin 1 gram [facility]#7564-3991-98 Reviewed 03/15/2010 12:00 AM PROTHROMBIN TIME Reviewed [...] AM Kenalog per 10Mg [facility]#[address]-02(Srinath) Reviewed 05/05/2014 12:00 AM DRAIN/INJ JOINT/BURSA W/O US Reviewed 05/05/2014 12:00 AM SYNVISC-ONE, Per 1 Mg (6ml) [facility] [address]-51 Reviewed 05/06/2014 12:00 AM COMPREHEN METABOLIC PANEL [...] Reviewed 11/07/2010 12:00 AM Rocephin 500 mg [facility]#[address]-12 Reviewed 07/14/2014 12:00 AM Fluzone MEDICARE Only Reviewed 11/29/2010 12:00 AM INJECT TRIGGER POINTS 3/> Reviewed 11/29/2010 12:00 AM Kenalog per 10Mg [facility]#[address]-13(Srinath) Reviewed 07/14/2014 12:00 AM Decadron injection Reviewed [...] CVX Pneumococcal 07/09/2016 [facility] Prevnar 13 [id number] Intramuscular Right Deltoid 07/09/2016 07/28/2015 133 History [...] Number Start Date Medicare RHC Medicare RHC [id number] N/A [employer] [place] State Plan [employer] [place] State Plan [id number] N/A [employer] [place] [employer] [place] [employer] [id number] N/A [place] Medical Assistance [facility] Medical Assistance Prog [id number] N/A Medicare Part B Medicare Of [place] [id number] Friday, 2008 Medicare Part A Medicare Part A [id number] N/A [facility] - RHC - Community Plan [facility] RHC Comm [id number] Wednesday, 2015 [employer] - [place] State Plan [employer] [place] State Plan [id number] Wednesday, 2015 Medicare Part A Medicare - Lab/Xray [id number] N/A History of Encounters Visit Date Visit Type Provider 04/03/2017 Office visit Melecio Wilkinson DO 03/28/2017 Office visit Melecio Wilkinson DO 03/11/2017 Office visit Melecio Wilkinson DO 02/22/2017 Office visit Melecio Wilkinson DO 02/05/2017 Office visit Melecio Wilkinson DO 2017 Hospital Rasta Mckeon MD 2017 Hospital Ama Barrios MD 01/09/2017 Office visit Melecio Wilkinson DO 01/01/2017 [facility] Seth Devlin DO 12/31/2016 [facility] Rasta Mckeon MD 12/31/2016 [facility] Ama Barrios MD 12/21/2016 Office [...] MD 12/02/2014 Hospital Alfa Platt MD 12/02/2014 [facility] Magi Powers MD 11/29/2014 [facility] Magi Powers MD 11/29/2014 Voided [...] Office visit Gorge Yo MD 05/12/2012 [facility] DO 05/11/2012 [facility] DO 03/13/2012 Office visit Gorge [...] MD 03/31/2010 Laboratory Alfonso Camacho MD 03/31/2010 [facility] Alfonso Camacho MD 03/21/2010 Procedures [...]
--- OUTSIDE RECORDS SUMMARY | 2018-01-22 18:24 | XMS REPORT | Continuity of Care Document ---
Author Author [facility] Organization [facility] Address Unknown Phone Unavailable Allergies Active Description Code Type Severity Reaction Onset Reported/Identified Relationship to Patient Clinical Status Yes No Known Drug Allergies [id number] N/A N/A Yes No Known Drug Allergies [id number] Drug Allergy Unknown N/A 01/05/2009 Medications There is no data. Problems Date Dx Coded Attending Type Code Diagnosis Diagnosed By 08/22/2015 E55.9 Vitamin D deficiency, unspecified SHAIKH LIGIA, [facility] 08/22/2015 I12.9 Hypertensive chronic kidney disease with stage 1 through stage 4 chronic kidney disease, or unspecified chronic kidney disease SHAIKH LIGIA, [facility] 08/22/2015 N18.4 Chronic kidney disease, stage 4 (severe) SHAIKH LIGIA, [facility] 09/02/2017 P C3411 Malignant neoplasm of upper lobe, right bronchus or lung 01/20/2018 Ot 434.91 CEREBRAL ART OCCLUSION NOS W CEREBRAL IN 01/20/2018 ERENDIRA JAIN Ot 272.4 HYPERLIPIDEMIA NEC/NOS 01/20/2018 ERENDIRA JAIN Ot 397.0 TRICUSPID VALVE DISEASE 01/20/2018 ERENDIRA JAIN Ot 401.9 HYPERTENSION NOS 01/20/2018 ERENDIRA JAIN Ot 414.00 CORON ATHEROSCLER NOS TYPE VESSEL, NATIV 01/20/2018 ERENDIRA JAIN Ot 424.0 MITRAL VALVE DISORDER 01/20/2018 ERENDIRA JAIN Ot 428.0 CONGESTIVE HEART FAILURE NOS 01/20/2018 ERENDIRA JAIN Ot 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.3 CARDIOMEGALY 01/20/2018 REENDIRA JAIN Ot 786.50 CHEST PAIN NOS 01/20/2018 ERENDIRA JAIN Ot V45.02 AUTO IMPLANTABLE CARDIAC DEFIBRILLATOR I 01/22/2018 Ot 434.91 CEREBRAL ART OCCLUSION NOS W CEREBRAL IN 01/22/2018 NAHEED ACHARYA ERENDIRA K Ot 272.4 HYPERLIPIDEMIA NEC/NOS 01/22/2018 NAHEED ACHARYA ERENDIRA English Ot 397.0 TRICUSPID VALVE DISEASE 01/22/2018 NAHEED ACHARYA ERENDIRA English Ot 401.9 HYPERTENSION NOS 01/22/2018 NAHEDE ACHARYA ERENDIRA English Ot 414.00 CORON ATHEROSCLER NOS TYPE VESSEL, NATIV 01/22/2018 NAHEED ACHARYA ERENDIRA English Ot 424.0 MITRAL VALVE DISORDER 01/22/2018 NAHEED ACHARYA ERENDIRA English Ot 428.0 CONGESTIVE HEART FAILURE NOS 01/22/2018 NAHEED ACHARYA ERENDIRA English Ot 429.3 CARDIOMEGALY 01/22/2018 NAHEED ACHARYA ERENDIRA English Ot 786.50 CHEST PAIN NOS 01/22/2018 NAHEED ACHARYA ERENDIRA English Ot V45.02 AUTO IMPLANTABLE CARDIAC DEFIBRILLATOR I Procedures Code Description [place] [id number] Office or other outpatient visit for the evaluation and management of an established patient, which SHAIKH LIGIA, [facility] 08/02/2016 Results Test Result Range GFR, Estimated - 08/29/16 10:01 eGFR 48 ML/MIN NRG Creatinine, Serum - 08/29/16 10:01 Creatinine, Serum 1.5 0.6-1.4 Potassium (K), Serum - 08/29/16 10:01 Potassium (K), Serum 4.0 MEQ/L 3.2-5.2 GFR, Estimated - 08/29/16 10:04 eGFR 45 ML/MIN NRG Creatinine, Serum - 08/29/16 10:04 Creatinine, Serum 1.6 0.6-1.4 CBC With Platelet and Differential - 08/29/16 10:04 Hematocrit (HCT) 41.5 % 42.0-52.0 Hemoglobin (Hgb) 13.0 G/DL 14.0-18.0 WBC 9.7 K/UL 4.8-10.8 Potassium (K), Serum - 08/29/16 10:04 Potassium (K), Serum 3.3 MEQ/L 3.2-5.2 Vitamin D, 25-Hydroxy - 08/29/16 10:04 Vitamin D,25-Hydroxy 12.3 NG/ML 25-80 [place]/CR ratio - 08/29/16 10:04 Creatinine, Random U 177.0 MG/DL NRG Protein,Total, Rdm U 62 MG/DL NRG Protein/Creat Ratio 0.4 NRG CBC With Platelet and Differential - 08/29/16 10:05 Hematocrit (HCT) 41.1 % 42.0-52.0 Hemoglobin (Hgb) 12.7 G/DL 14.0-18.0 WBC 8.2 K/UL 4.8-10.8 Creatinine, Serum - 08/29/16 10:05 Creatinine, Serum 1.5 0.6-1.4 GFR, Estimated - 08/29/16 10:05 eGFR 48 ML/MIN NRG Potassium (K), Serum - 08/29/16 10:05 Potassium (K), Serum 3.6 MEQ/L 3.2-5.2 PTH, Intact - 04/17/17 08:25 PTH, Intact 85 pg/mL 15-65 Automated blood complete blood count (hemogram) panel - 01/22/18 10:12 Blood leukocytes automated count (number/volume) 8.8 10*3/uL 4.3-11.0 Blood erythrocytes automated count (number/volume) 4.57 10*6/uL 4.35-5.85 Venous blood hemoglobin measurement (mass/volume) 12.6 g/dL 13.3-17.7 Blood hematocrit (volume fraction) 39 % 40-54 Automated erythrocyte mean corpuscular volume 85 [foz_us] 80-99 Automated erythrocyte mean corpuscular hemoglobin (mass per erythrocyte) 28 pg 25-34 Automated erythrocyte mean corpuscular hemoglobin concentration measurement ( mass/volume) 32 g/dL 32-36 Automated erythrocyte distribution width ratio 18.8 % 10.0-14.5 Automated blood platelet count (count/volume) 307 10*3/uL 130-400 Automated blood platelet mean volume measurement 8.8 [foz_us] 7.4-10.4 Comprehensive metabolic panel - 01/22/18 10:12 Serum or plasma sodium measurement (moles/volume) 138 mmol/L 135-145 Serum or plasma potassium measurement (moles/volume) 4.1 mmol/L 3.6-5.0 Serum or plasma chloride measurement (moles/volume) 103 mmol/L 98-107 Carbon dioxide 28 mmol/L 21-32 Serum or plasma anion gap determination (moles/volume) 7 mmol/L 5-14 Serum or plasma urea nitrogen measurement (mass/volume) 27 mg/dL 7-18 Serum or plasma creatinine measurement (mass/volume) 1.64 mg/dL 0.60-1.30 Serum or plasma urea nitrogen/creatinine mass ratio 16 NRG Serum or plasma creatinine measurement with calculation of estimated glomerular filtration rate 53 NRG Serum or plasma glucose measurement (mass/volume) 100 mg/dL 70-105 Serum or plasma calcium measurement (mass/volume) 9.3 mg/dL 8.5-10.1 Serum or plasma total bilirubin measurement (mass/volume) 0.4 mg/dL 0.1-1.0 Serum or plasma alkaline phosphatase measurement (enzymatic activity/volume) 102 U/L 40-136 Serum or plasma aspartate aminotransferase measurement (enzymatic activity/ volume) 13 U/L 5-34 Serum or plasma alanine aminotransferase measurement (enzymatic activity/volume ) 7 U/L 0-55 Serum or plasma protein measurement (mass/volume) 7.9 g/dL 6.4-8.2 Serum or plasma albumin measurement (mass/volume) 3.9 g/dL 3.2-4.5 Lipid 1996 panel - 01/22/18 10:12 Serum or plasma triglyceride measurement (mass/volume) 117 mg/dL <150 Serum or plasma cholesterol measurement (mass/volume) 142 mg/dL < 200 Serum or plasma cholesterol in HDL measurement (mass/volume) 31 mg/ dL 40-60 Cholesterol in LDL [mass/volume] in serum or plasma by direct assay 89 mg/dL 1-129 Serum or plasma cholesterol in VLDL measurement (mass/volume) 23 mg/ dL 5-40 PT panel in platelet poor plasma by coagulation assay - 01/22/18 10:12 Prothrombin time (PT) in platelet poor plasma by coagulation assay 20.1 s 12.2-14.7 INR in platelet poor plasma or blood by coagulation assay 1.7 0.8-1.4 Activated partial thromboplastin time (aPTT) in platelet poor plasma bycoagulation assay - 01/22/18 10:12 Activated partial thromboplastin time (aPTT) in platelet poor plasma bycoagulation assay 38 s 24-35 Complete urinalysis with reflex to culture - 01/22/18 10:12 Urine color determination YELLOW NRG Urine clarity determination CLEAR NRG Urine pH measurement by test strip 7 5-9 Specific gravity of urine by test strip 1.010 1.016- 1.022 Urine protein assay by test strip, semi-quantitative 1+ NEGATIVE Urine glucose detection by automated test strip NEGATIVE NEGATIVE Erythrocytes detection in urine sediment by light microscopy NEGATIVE NEGATIVE Urine ketones detection by automated test strip NEGATIVE NEGATIVE Urine nitrite detection by test strip NEGATIVE NEGATIVE Urine total bilirubin detection by test strip NEGATIVE NEGATIVE Urine urobilinogen measurement by automated test strip (mass/volume) 4 mg/dL NORMAL Urine leukocyte esterase detection by dipstick 1+ NEGATIVE Automated urine sediment erythrocyte count by microscopy (number/high power field) NONE NRG Automated urine sediment leukocyte count by microscopy (number/high power field ) NONE NRG Bacteria detection in urine sediment by light microscopy NEGATIVE NRG Squamous epithelial cells detection in urine sediment by light microscopy 0-2 NRG Crystals detection in urine sediment by light microscopy NONE NRG Casts detection in urine sediment by light microscopy NONE NRG Mucus detection in urine sediment by light microscopy NEGATIVE NRG Complete urinalysis with reflex to culture NO NRG Encounters ACCT No. Visit Date/Time Discharge Status Pt. Type Provider Facility Loc./Unit Complaint [id number] 04/14/2013 09:33:00 04/14/2013 23:59:59 CLS Outpatient NAHEED ACHARYA, ERENDIRA English [facility] CARD CP,CAD,CHF, HTN [id number] 01/22/2018 10:02:00 ACT Outpatient SAMI QUINN MD [facility] CATH DOUG,SSS,CHF,CAD,HTP,SOB [id number] 01/09/2013 13:10:00 Document Registration [id number] 08/02/2016 15:01:41 Document Registration [id number] 12/18/2017 08:22:42 Document Registration [id number] 09/11/2017 08:43:45 Document Registration [id number] 07/31/2017 09:57:58 Document Registration [id number] 06/13/2017 12:14:47 Document Registration [id number] 06/13/2017 08:45:06 Document Registration [id number] 06/06/2017 11:18:32 Document Registration [id number] 06/03/2017 09:07:10 Document Registration [id number] 05/03/2016 18:22:39 05/03/2016 18:22:39 DIS Outpatient [id number] 04/18/2017 10:08:00 Document Registration [id number] 01/17/2018 10:02:37 01/17/2018 23:59:59 CLS Outpatient JajaMelecio medellin [id number] 11/14/2017 16:27:48 11/14/2017 23:59:59 CLS Outpatient JajaMelecio medellin [id number] 11/07/2017 09:13:29 11/07/2017 23:59:59 CLS Outpatient JajaMelecio medellin [id number] 10/22/2017 10:17:56 10/22/2017 23:59:59 CLS Outpatient JajaSteven medellina [id number] 09/05/2017 17:06:03 09/05/2017 23:59:59 CLS Outpatient DenisAma oreilly [id number] 08/27/2017 15:43:59 08/27/2017 23:59:59 CLS Outpatient JajaSteven medellina [id number] 07/22/2017 16:04:20 07/22/2017 23:59:59 CLS Outpatient JajaSteven medellina [id number] 06/06/2017 17:07:01 06/06/2017 23:59:59 CLS Outpatient Ama Barrios [id number] 06/06/2017 10:59:40 06/06/2017 23:59:59 CLS Outpatient JajaSteven medellina [id number] 04/03/2017 09:02:05 04/03/2017 23:59:59 CLS Outpatient JajaSteven medellina [id number] 03/28/2017 14:28:12 03/28/2017 23:59:59 CLS Outpatient JajaSteven medellina [id number] 03/18/2017 12:02:26 03/18/2017 23:59:59 CLS Outpatient Ama Barrios [id number] 03/11/2017 10:07:53 03/11/2017 23:59:59 CLS Outpatient Jaja, Melecio [id number] 03/08/2017 12:18:09 03/08/2017 23:59:59 CLS Outpatient Ama Barrios [id number] 02/22/2017 10:26:51 02/22/2017 23:59:59 CLS Outpatient Jaja, Melecio [id number] 02/15/2017 16:14:15 02/15/2017 23:59:59 CLS Outpatient Rasta Mckeon [id number] 02/05/2017 14:31:18 02/05/2017 23:59:59 CLS Outpatient JajaMelecio medellin [id number] 01/14/2017 17:31:08 01/14/2017 23:59:59 CLS Outpatient Rasta Mckeon [id number] 01/09/2017 09:09:11 01/09/2017 23:59:59 CLS Outpatient JajaMelecio medellin [id number] 01/02/2017 16:30:51 01/02/2017 23:59:59 CLS Outpatient Seth Devlin [id number] 12/21/2016 09:05:33 12/21/2016 23:59:59 CLS Outpatient JajaMelecio medeliln [id number] 11/20/2016 11:20:13 11/20/2016 23:59:59 CLS Outpatient JajaMelecio medellin [id number] 11/05/2016 11:03:45 11/05/2016 23:59:59 CLS Outpatient JajaMelecio medellin [id number] 10/23/2016 15:22:50 10/23/2016 23:59:59 CLS Outpatient JajaMelecio medellin [id number] 10/10/2016 10:52:23 10/10/2016 23:59:59 CLS Outpatient JajaMelecio medellin [id number] 09/26/2016 09:29:06 09/26/2016 23:59:59 CLS Outpatient JajaSteven medellina [id number] 08/29/2016 15:01:09 08/29/2016 23:59:59 CLS Outpatient Ama Barrios [id number] 08/28/2016 09:02:15 08/28/2016 23:59:59 CLS Outpatient JajaSteven medellina [id number] 08/14/2016 15:30:20 08/14/2016 23:59:59 CLS Outpatient Ama Barrios [id number] 08/14/2016 15:17:48 08/14/2016 23:59:59 CLS Outpatient Ama Barrios [id number] 08/08/2016 10:56:10 08/08/2016 23:59:59 CLS Outpatient Jaja, Melecio [id number] 07/18/2016 11:12:23 07/18/2016 23:59:59 CLS Outpatient David Paul [id number] 07/09/2016 10:39:34 07/09/2016 23:59:59 CLS Outpatient JajaMelecio medellin [id number] 06/07/2016 09:43:35 06/07/2016 23:59:59 CLS Outpatient JajaMelecio medellin [id number] 05/03/2016 15:31:19 05/03/2016 23:59:59 CLS Outpatient JajaMelecio medellin [id number] 04/11/2016 09:03:48 04/11/2016 23:59:59 CLS Outpatient JajaMelecio medellin [id number] 12/20/2015 14:34:29 12/20/2015 23:59:59 CLS Outpatient JajaMelecio medellin [id number] 11/21/2015 10:51:40 11/21/2015 23:59:59 CLS Outpatient JajaMelecio medellin [id number] 10/17/2015 15:36:25 10/17/2015 23:59:59 CLS Outpatient JajaMelecio medellin [id number] 09/26/2015 11:18:44 09/26/2015 23:59:59 CLS Outpatient JajaMelecio medellin [id number] 09/07/2015 09:26:46 09/07/2015 23:59:59 CLS Outpatient Katty Jefferson [id number] 08/25/2015 10:51:10 08/25/2015 23:59:59 CLS Outpatient Katty Jefferson [id number] 08/23/2015 10:43:05 08/23/2015 23:59:59 CLS Outpatient JajaMelecio medellin [id number] 08/08/2015 10:04:04 08/08/2015 23:59:59 CLS Outpatient JajaMelecio medellin [id number] 08/05/2015 09:52:25 08/05/2015 23:59:59 CLS Outpatient Katty Jefferson [id number] 07/11/2015 14:08:15 07/11/2015 23:59:59 CLS Outpatient Katty Jefferson [id number] 07/06/2015 15:15:26 07/06/2015 23:59:59 CLS Outpatient Katty Jefferson [id number] 06/27/2015 14:30:02 06/27/2015 23:59:59 CLS Outpatient JajaMelecio medellin [id number] 06/20/2015 14:48:21 06/20/2015 23:59:59 CLS Outpatient JajaMelecio medellin [id number] 06/15/2015 16:46:36 06/15/2015 23:59:59 CLS Outpatient Katty Jefferson [id number] 06/02/2015 11:30:22 06/02/2015 23:59:59 CLS Outpatient JajaMelecio medellin [id number] 05/16/2015 14:04:28 05/16/2015 23:59:59 CLS Outpatient Katty Jefferson [id number] 05/16/2015 10:24:22 05/16/2015 23:59:59 CLS Outpatient JajaMelecio medellin [id number] 05/09/2015 10:29:09 05/09/2015 23:59:59 CLS Outpatient JajaMelecio medellin [id number] 05/02/2015 22:30:48 05/02/2015 23:59:59 CLS Outpatient Katty Jefferson [id number] 05/02/2015 22:17:48 05/02/2015 23:59:59 CLS Outpatient JajaMelecio medellin [id number] 05/02/2015 22:17:41 05/02/2015 23:59:59 CLS Outpatient JajaMelecio medellin [id number] 05/02/2015 22:10:32 05/02/2015 23:59:59 CLS Outpatient Katty Jefferson [id number] 05/02/2015 22:09:26 05/02/2015 23:59:59 CLS Outpatient JajaMelecio medellin [id number] 05/02/2015 22:01:29 05/02/2015 23:59:59 CLS Outpatient Katty Jefferson [id number] 05/02/2015 21:50:57 05/02/2015 23:59:59 CLS Outpatient JajaMelecio medellin [id number] 05/02/2015 21:43:47 05/02/2015 23:59:59 CLS Outpatient JajaSteven medellina [id number] 05/02/2015 21:43:42 05/02/2015 23:59:59 CLS Outpatient Katty Jefferson [id number] 01/26/2015 15:58:05 01/26/2015 [facility]:59:[id number] 16:49:17 01/19/2015 23:59:59 CLS Outpatient Katty Jefferson [id number] 01/13/2015 14:28:56 01/13/2015 23:59:59 CLS Outpatient Steven Wilkinsona [id number] 01/12/2015 10:17:34 01/12/2015 23:59:59 CLS Outpatient Katty Jefferson [id number] 12/22/2014 18:11:33 12/22/2014 23:59:59 CLS Outpatient Alfa Platt [id number] 12/22/2014 16:34:34 12/22/2014 23:59:59 CLS Outpatient Alfa Platt [id number] 12/14/2014 10:40:48 12/14/2014 23:59:59 CLS Outpatient JajaStevena [id number] 10/26/2014 17:57:20 10/26/2014 23:59:59 CLS Outpatient DenisAma [id number] 09/14/2014 10:54:31 09/14/2014 23:59:59 CLS Outpatient Katty Jefferson [id number] 09/07/2014 09:46:30 09/07/2014 23:59:59 CLS Outpatient Jaja Melecio [id number] 08/16/2014 11:55:25 08/16/2014 23:59:59 CLS Outpatient Katty Jefferson [id number] 07/19/2014 10:57:51 07/19/2014 23:59:59 CLS Outpatient Katty Jefferson [id number] 07/14/2014 10:14:26 07/14/2014 23:59:59 CLS Outpatient JajaMelecio bob [id number] 06/21/2014 10:50:26 06/21/2014 23:59:59 CLS Outpatient Katty Jefferson [id number] 05/20/2014 10:38:04 05/20/2014 23:59:59 CLS Outpatient Melecio Wilkinson [id number] 05/14/2014 10:25:48 05/14/2014 23:59:59 CLS Outpatient Melecio Wilkinson [id number] 05/05/2014 11:48:47 05/05/2014 23:59:59 CLS Outpatient Katty Jefferson [id number] 04/26/2014 15:12:28 04/26/2014 23:59:59 CLS Outpatient Katty Jefferson [id number] 03/24/2014 14:51:36 03/24/2014 23:59:59 CLS Outpatient Katty Jefferson [id number] 02/24/2014 14:00:59 02/24/2014 23:59:59 CLS Outpatient Katty Jefferson [id number] 01/05/2014 14:38:18 01/05/2014 23:59:59 CLS Outpatient Melecio Wilkinson [id number] 12/23/2013 10:53:44 12/23/2013 23:59:59 CLS Outpatient Katty Jefferson [id number] 12/23/2013 10:36:53 12/23/2013 23:59:59 CLS Outpatient Melecio Wilkinson [id number] 12/18/2013 10:32:46 12/18/2013 23:59:59 CLS Outpatient Landon Janis [id number] 12/08/2013 16:09:22 12/08/2013 23:59:59 CLS Outpatient Janis Navarrete [id number] 11/25/2013 09:43:39 11/25/2013 23:59:59 CLS Outpatient Katty Jefferson [id number] 10/29/2013 09:51:14 10/29/2013 23:59:59 CLS Outpatient Melecio Wilkinson [id number] 09/22/2013 10:08:35 09/22/2013 23:59:59 CLS Outpatient Landon Janis [id number] 01/20/2018 11:33:04 ACT Outpatient Melecio Wilkinson [id number] 05/31/2015 15:11:00 05/31/2015 15:11:00 DIS Outpatient JARETT GRAYSON [facility] SALLY
[2018-01-22 19:10] VITALS: BP 113/71
[2018-01-22 23:23] VITALS: BP 132/77
[2018-01-23 03:20] VITALS: BP 133/85
[2018-01-23] MEDS: ceFAZolin INJECTION 1,000 MG in NS (IVPB) 100 ML IV SCH (05:08)
--- NOTE | 2018-01-23 07:14 | Cardiology Progress Note ---
Subjective Date Seen by Provider: January 23, 2018 Time Seen by Provider: 07:11 Subjective/Events-last exam Patient is in bed, feeling well, wound is healing well Review of Systems General: No Chills, No Night Sweats, No Fatigue, No Malaise, No Appetite, No Other HEENT: No Head Aches, No Visual Changes, No Eye Pain, No Ear Pain, No Dysphasia , No Sinus Congestion, No Post Nasal Drip, No Sore Throat, No Other Pulmonary: No Dyspnea, No Cough, No Pleuritic Chest Pain, No Other Cardiovascular: No: Chest Pain, Palpitations, Orthopnea, Paroxysmal Noc. Dyspnea, Edema, Lt Headedness, Other Objective-Cardiology Exam Last Set of Vital Signs Vital Signs 01/23/18 03:20 Temp 98.0 Pulse 63 Resp 20 B/P (MAP) 133/85 (101) Pulse Ox 97 O2 Delivery Nasal Cannula O2 Flow Rate 2.00 Capillary Refill : I&O Intake and Output 01/23/18 00:00 Intake Total 1400 ml Balance 1400 ml Intake Oral 1200 ml IV Total 200 ml # Voids 3 General: Alert, Oriented X3, Cooperative HEENT: Atraumatic, PERRLA Neck: Supple, No JVD, No Thyromegaly Lungs: Clear to Auscultation, Normal Air Movement Heart: Regular Rate, Normal S1, Normal S2, No Murmurs Abdomen: Normal Bowel Sounds, Soft, No Tenderness, No Hepatosplenomegaly, No Masses Extremities: No Clubbing, No Cyanosis, No Edema, Normal Pulses, No Tenderness/ Swelling Skin: No Rashes, No Breakdown, No Significant Lesion Neuro: Normal Gait, Normal Speech, Strength at 5/5 X4 Ext, Normal Tone, Sensation Intact Psych/Mental Status: Mental Status NL, Mood NL Results Lab Laboratory Tests 01/22/18 10:12 A/P-Cardiology Admission Diagnosis V tach PPM HTN CRI Assessment/Plan Ventricular tachycardia, currently stable, continue to monitor PPM/ICD status post generator replacement, continue to monitor Hypertension, continue home meds and monitor chronic renal insuf, continue to monitor as an outpatient Clinical Quality Measures DVT/VTE Risk/Contraindication: Risk Factor Score Per Nursin RFS Level Per Nursing on Admit: 4+=Very High SAMI QUINN MD January 23, 2018 07:14
[2018-01-23] MEDS ORDERED: CEFU500T63 PO (07:16)
[2018-01-23 08:00] VITALS: BP 138/87
[2018-01-23 09:15] VITALS: BP 138/87
== END 2018-01-23 09:15 | disposition home or self-care (01) ==
LOC: CATH 10:02 → 4TH 13:55 → CATH 01-23 09:15
PROVIDERS: ATTEND Internal Medicine Cardiovascular Disease
DX: I47.2 Ventricular tachycardia (principal); I25.10 Atherosclerotic heart disease of native coronary artery without angina pectoris; I13.0 Hypertensive heart and chronic kidney disease with heart failure and stage 1 through stage 4 chronic kidney disease, or unspecified chronic kidney disease; N18.9 Chronic kidney disease, unspecified; I50.9 Heart failure, unspecified; E78.5 Hyperlipidemia, unspecified; I48.0 Paroxysmal atrial fibrillation; I27.20 Pulmonary hypertension, unspecified; I65.23 Occlusion and stenosis of bilateral carotid arteries; F17.290 Nicotine dependence, other tobacco product, uncomplicated; Z85.118 Personal history of other malignant neoplasm of bronchus and lung; Z86.73 Personal history of transient ischemic attack (TIA), and cerebral infarction without residual deficits; Z11.2 Encounter for screening for other bacterial diseases; Z92.3 Personal history of irradiation; Z92.21 Personal history of antineoplastic chemotherapy
CPT/HCPCS: 33263; 36415; 71045; 80053; 80061; 81000; 85027; 85610; 85730; 87081; 93005

== ENCOUNTER → 2018-09-03 | Outpatient (CLI) | payer MEDICARE ==
[~2018-09-03] MED LIST changes: +ALLO100T PO; +AMLO5TAB7 PO; +ATOR40TA70 PO; +BUDE10.2 IH; +CARV25TA PO; +CATHETER FLUSH 10 ML SYR IV PRN; +CEFU500T63 PO; +CLON0.2T PO; +DIGO125T PO; +LOSA25TA6 PO; +METH750T3 PO; +OMEP40CA36 PO; +OXC20TCR PO; +OXYC20TA3 PO; +PROAMATINE PO; +REGADENOSON 0.4 MG/5 ML SYR (LEXISCAN) IV ONE; +RIVA20TA PO; +SUCR1TAB PO; +ZOLP10TA5 PO
[2018-09-03 12:35] VITALS: BP 118/73
[2018-09-03 12:46] VITALS: BP 109/74
--- NOTE | 2018-09-04 09:01 | STRESS TEST ---
DATE OF SERVICE: 09/03/2018 LEXISCAN MYOVIEW STRESS TEST REPORT REFERRING PHYSICIAN: Dr. Melecio Wilkinson. Baseline heart rate is 61 and baseline blood pressure is 107/75. Baseline EKG is sinus rhythm with no ischemic changes. In summary, the patient was injected with 10.89 mCi of technetium-99 Myoview and the resting images were obtained. Then, the patient received 0.4 mg of Lexiscan followed by 29.1 mCi of technetium-99 Myoview. Throughout the test, there were no EKG changes. The resting and stress images were reviewed and compared in the short axis, horizontal long axis and vertical long axis views. Review of the images showed diaphragmatic attenuation with typical male pattern. No significant ischemia or infarction. SSS is 0. TID value 1. On the gated images, the left ventricle appeared to be in normal size with mild hypokinesia of the anterior wall. Calculated ejection fraction is 54%. CONCLUSION: 1. The patient tolerated Lexiscan well. 2. Diaphragmatic attenuation with apical thinning with no significant ischemia or infarction on SPECT images. 3. Normal left ventricular size with mild hypokinesia of the anterior wall. Calculated ejection fraction is 54%. Job ID: [id number] DocumentID: [id number] Dictated Date: 09/04/2018 08:43:17 [employer] Supervisor Date: 09/04/2018 09:00:23 Dictated By: SAMI QUINN MD
== END ==
LOC: CARD 11:04
PROVIDERS: ATTEND Internal Medicine Cardiovascular Disease
DX: I25.10 Atherosclerotic heart disease of native coronary artery without angina pectoris (principal); I12.9 Hypertensive chronic kidney disease with stage 1 through stage 4 chronic kidney disease, or unspecified chronic kidney disease; N18.9 Chronic kidney disease, unspecified; E78.5 Hyperlipidemia, unspecified; I49.5 Sick sinus syndrome; I63.9 Cerebral infarction, unspecified
CPT/HCPCS: 78452; 93017